=== PATIENT | female | born 1950 | race Caucasian/White ===

== ENCOUNTER 2023-03-26 07:10 | Day surgery (SDC) | payer MEDICARE, OTHER, SELFPAY ==
[2023-03-26] VITALS (7 sets, daily range): BP systolic 96–108; BP diastolic 59–89; BMI 26.2
--- NOTE | 2023-03-26 09:42 | ITS.CL.CATH ---
[facility] [employer] [facility] - Catheterization
Cardiac Catheterization
Procedure Report:
RIGHT HEART CATHETERIZATION WITH SHUNT RUN
Date of Procedure: March 26, 2023
Referring: Diann Bledsoe
INDICATION: Pulmonary hypertension
Hemodynamics (mmHg):
RA (m) : 10
RV (s/d,m) : 81/15, 37
PA (s/d, m) :82/34, 50
PCWP (m) : 16
AO saturation: 91.0 % on room air
High SVC Saturation: 61.6 % on room air
Low SVC Saturation: 63.2 % on room air
IVC Saturation: 69.8 % on room air
RA Saturation: 67.2 % on room air
RV saturation: 67.0 % on room air
PA Saturation: 67.5 % on room air
Heart Rate: 84bpm; Non-invasive BP: 114/61 (mean 82)
Cardiac Output : 3.86 L/min
Cardiac Index : 2.32 L/min/m-2
Systemic vascular resistance: 1492 dsc^(-5)
Pulmonary vascular resistance: 8.62 jasso unit
RADIATION SUMMARY: Fluoro Time (min): 2.1, Dose (mGy): 10.74, DAP (Gy.cm2) : 1.6
CONCLUSION:
1. Severe pulmonary hypertension with minimally elevated left-sided filling pressures and no significant step up noted on the short run.
Copy to: Diann Tomnahed
Luz Marina Bassett MD, FAC, [facility]
== END 2023-03-26 11:31 | disposition home or self-care (01) ==
LOC: CATH 07:10
PROVIDERS: ATTENDING PHYSICIAN Internal Medicine Interventional Cardiology; FAMILY PHYSICIAN Physician Assistant; OTHER PHYSICIAN Internal Medicine Cardiovascular Disease
DX: I27.20 Pulmonary hypertension, unspecified (principal); I13.0 Hypertensive heart and chronic kidney disease with heart failure and stage 1 through stage 4 chronic kidney disease, or unspecified chronic kidney disease; N18.31 Chronic kidney disease, stage 3a; I50.812 Chronic right heart failure; E78.5 Hyperlipidemia, unspecified; K21.9 Gastro-esophageal reflux disease without esophagitis; Z79.82 Long term (current) use of aspirin
CPT/HCPCS: 93451; C1894

== ENCOUNTER 2023-05-06 17:56 | Emergency (ER) | payer MEDICARE, OTHER, SELFPAY ==
[2023-05-06 17:58] VITALS: BP 104/64
--- NOTE | 2023-05-06 19:46 | ED.GENMED ---
History of Present Illness
General
Chief Complaint: Skin Problem
Source: patient
Exam Limitations: none
Time Seen by Provider: 05/06/23 19:23
Nursing documentation reviewed up to this point in time: agreed with
Travel History
Have you had any contact with someone who has COVID-19?: No
Do you have any symptoms of coronavirus? Fever > 100 degrees, chills, cough, shortness of breath, sore throat, loss of taste or smell, muscle aches, or headache?: No
History of Present Illness
History of Present Illness:
72 y/o F with h/o chf, pulm htn, htn, hld
newly diagnosed scleroderma and lupus subtype proteinuria
just seen by rheum
no meds yet
h/o OA
here with painful swelling her right 4th finger x 4 days
pt says she has had a nonpainful lump on her finger PIP for months
but it just started swelling and becoming purulent a few days ago
she has some pain with flexion but is still able to bend it despite the swelling
she showed it to the rheuamtologist who didn't believe this awas related to her autoimmune issues
she has not had fever, chills.
Past History
Past History
ED Past Medical History: CHF, GERD, HTN, Hypercholesterolemia, Other (pulm htn) and Other (PE)
Social History
Tobacco: Non-smoker
Alcohol: None
Drug: None
Review of Systems
Review of Systems
Allergies reviewed?: Yes
All Other Systems: Not applicable
Phy Exam
Physical Exam
Physical Exam:
GENERAL: Alert , in no apparent distress, comfortable at rest
HEAD: NCAT
CV: 2+ DP PULSES B/L
NEUROLOGICAL: Alert and oriented, no focal neuro deficits, , 5/5 strength, sensation intact, ambulation slight limp right leg
SKIN: Warm and dry,
pt has a purulent pustule/lesion rounded on the dorsum of the right ring finger PIP joint with surrounding erythema and mild STS
flexor surface mild erythema
but nontender
flexion 20degrees intact
no streaking up finger
MUSCULOSKELETAL: 4th finger with purulent lump with redness
left 2nd finger with a small nontender nonerythematous bump that resembes a heberden;s node;
PSYCH: Normal and appropriate interaction.
Course
Orders/Labs/Results
Orders:
Orders
05/06/23 19:58
Cephalexin Monohydrate [Keflex] 500 mg PO NOW STA
05/06/23 20:40
Wound Culture [Wound/Abscess/Other Culture] Urgent
EMILY Source: Abscess
Specimen Description:
Date Specimen was Collected: 05/06/23
Time Specimen was Collected: 20:39
Vital Signs
Initial and Last Documented VS:
Initial Vital Signs
Temp Pulse Resp BP Pulse Ox
98.1 F 96 18 104/64 94
05/06/23 17:58 05/06/23 17:58 05/06/23 17:58 05/06/23 17:58 05/06/23 17:58
Last Documented Vital Signs
Temp Pulse Resp BP Pulse Ox
98.1 F 96 18 104/64 94
05/06/23 17:58 05/06/23 17:58 05/06/23 17:58 05/06/23 17:58 05/06/23 17:58
Procedures
Incision/Drainage/Joint Aspiration
Right Posterior Dorsal Fourth Finger(s):
Anethesia: 1% Lidocaine
Preparation: cleaned with Betadine
Type of procedure: incise
Nature of site: abscess
Description of abscess: less than 3cm
Loculations broken up: Yes
How much fluid was obtained?: small amount
Fluid description: purulent
Treatment: left open for drainage
MDM/Problems Addressed
Differential Diagnosis Includes:
abscess, cellulitis, herpetic witlow, bouchards node infection
MDM/Problems Addressed:
jossy suazo, 72 y/o F has seen chalino remotely for hip replacement; has had a node on dorsum of right ring fingerPIP joint for months; says a few days ago it started getting purulence and swelling with redness; she has no tendneress to flexor
surface but some limited ROM of flexion at the PIP joint due to swelling; no fever;
recent dx of scleroderma with lupus as well; followed by rheum but not on meds yet; i'm wondering if she had a yo's node (because it looks like she may have a heberden node on another hand) and it got infected. i spoke with letty olvera
surgery
ok with i&d and splinting for outpatient f/u, abx
keflex probably more tolerated, no h/o MRSa
i&d successful
moderate purulent cyst like drainage
splinted
*Critical Care Note
Total Time (30-74mins, 75-104mins- exclusive of procedures): Not Applicable
ED Attending Note
-
Portions of this chart may have been created with voice recognition software.� Occasional wrong word or��sound alike� substitutions may have occurred due to the inherent limitations of voice recognition software.
Discharge Plan
Departure
Patient Disposition: Home (Routine Discharge)
Date of Disposition: 05/06/23
Time of Disposition: 20:23
Patient with high blood pressure during this ER visit?: No
Condition: Fair
Discharge Problem:
Abscess
Instructions: Abscess Incision and Drainage (DC), Cellulitis (Skin Infection), Adult (DC)
Prescriptions:
New
cephalexin 500 mg capsule
500 mg PO Q8H Qty: 21 0RF
No Action
aspirin 81 mg Tablet,Delayed Release (Dr/Ec)
81 mg PO DAILY
simvastatin 20 mg Tablet
20 mg PO HS
ferrous sulfate [Iron (ferrous sulfate)] 325 mg (65 mg iron) Tablet
325 mg PO DAILY
esomeprazole magnesium [Nexium] 20 mg Capsule,Delayed Release(Dr/Ec)
20 mg PO QPM
losartan 25 mg Tablet
25 mg PO DAILY Qty: 90 3RF
metoprolol succinate 25 mg Tablet Extended Release 24 Hr
25 mg PO DAILY Qty: 90 3RF
cranberry extract [Ellura] 200 mg Capsule
200 mg PO DAILY
timolol 0.5 % Drops
1 drp OPHTHALMIC (EYE) DAILY
furosemide [Lasix] 40 mg tablet
60 mg PO DAILY
Referrals:
Nataliia Mobley PA-C [Family Provider] -
Josafat Crockett MD [Active] - Follow up in 2-3 days (HAND DOCTOR)
Activity Restrictions/Additional Instructions:
YOU HAD AN INFECTED CYST IN YOUR FINGER
TAKE KEFLEX 3 TIMES A DAY FOR 7 DAYS
SOAK IN WARM WATER A FEW TIMES A DAY
YOU SHOULD CALL THE HAND DOCTOR FOR AN APPOINTMENT
TAKE TYLENOL NEEDED FOR HEADACHE
CALL THE HAND DOCTOR FOR AN APPOINTMENT - TELL THEM YOU WERE SEEN IN THE ER AND I SPOKE WITH DR. CROCKETT (HAND DOCTOR) WHO WANTED TO SEE YOU IN THE OFFICE FORR THIS INFECTION
RETURN FOR: WORSENING PAIN, SWELLING, REDNESS, FEVER OR ANY CONCENRS,
Interventions
Interventions:
*Risk Screen - Suicide Last Done: 05/06/23 17:58
*General Assessment Last Done: 05/06/23 17:58
*Neglect/Abuse Screening Last Done: 05/06/23 17:58
ED- Fall Risk Assessment Last Done: 05/06/23 18:41
*ED COVID-19 Vaccine History Last Done: 05/06/23 17:58
*Nursing Disposition Last Done: 05/06/23 20:57
ED-Skin Assessment Last Done: 05/06/23 18:40
Discharge Date and Time
Discharge Date/Time: 05/06/23 20:57
[2023-05-06] MEDS: KEFLEX 500 MG PO (20:45)
== END 2023-05-06 20:57 | disposition home or self-care (01) ==
LOC: EMR 17:56
PROVIDERS: EMERGENCY PHYSICIAN Emergency Medicine; FAMILY PHYSICIAN Physician Assistant
DX: L02.511 Cutaneous abscess of right hand (principal); I11.0 Hypertensive heart disease with heart failure; I50.9 Heart failure, unspecified; E78.00 Pure hypercholesterolemia, unspecified; I27.20 Pulmonary hypertension, unspecified; K21.9 Gastro-esophageal reflux disease without esophagitis; M34.9 Systemic sclerosis, unspecified
CPT/HCPCS: 99282; 10060; 87070; 87205

== ENCOUNTER 2023-05-25 18:33 | Inpatient (IN) | payer MEDICARE, OTHER, SELFPAY ==
[2023-05-25] VITALS (17 sets, daily range): BP systolic 76–124; BP diastolic 51–71
[2023-05-25 09:16] LABS: % Basophils 0.3 % (0-2); % Eosinophils 0.8 % (0-6); % Immature Granulocytes 0.6 % (0-0.5); % Lymphocytes 8.4 % (20.5-51.1); % Monocytes 11.3 % (1.7-9.3); % Neutrophils 78.6 % (42.2-75.2); Absolute Eosinophils 0.1 10^3/uL (0-0.7); Absolute Lymphocytes 0.6 10^3/uL (1.2-3.4); Absolute Monocytes 0.8 10^3/uL (0.1-0.6); Absolute Neutrophils 5.7 10^3/uL (1.4-6.5); Hematocrit 30.6 % (37.0-47.0); Hemoglobin 9.7 g/dL (12.0-16.0); Mean Corp Hgb Conc. 31.7 g/dL (33.0-37.0); Mean Corpuscular Hgb 30.2 pg (27.0-31.0); Mean Corpuscular Volume 95.3 fL (81.0-99.0); Mean Platelet Volume 9.5 fL (7.4-10.4); Nucleated Red Blood Cells % 0 %; Platelet Count 251 10^3/uL (130-400); Red Blood Cell Count 3.21 10^6/uL (4.20-5.40); Red Cell Dist. Width 15.1 % (11.5-14.5); White Blood Cell Count 7.2 10^3/uL (4.8-10.8)
[2023-05-25 09:28] LABS: Blood Urea Nitrogen 24 mg/dl (7-17); Glucose 103 mg/dl (70-99)
[2023-05-25 09:29] LABS: Calcium 9.3 mg/dl (8.4-10.2); Carbon Dioxide 24 mmol/L (22-30); Chloride 104 mmol/L (98-107); Potassium 3.7 mmol/L (3.5-5.1); Sodium 133 mmol/L (135-145); eGFR > 60.00
[2023-05-25 09:31] LABS: INR 1.15; PT 14.5 Sec (11.4-14.6)
[2023-05-25 15:25] LABS: Hematocrit 28.1 % (37.0-47.0); Hemoglobin 9.3 g/dL (12.0-16.0)
--- NOTE | 2023-05-25 16:46 | W.CON.NEPH ---
Consultation
-
Date/Time Consultation Requested: 05/25/23
Date/Time Consultation Performed: 05/25/23
Performing Provider: Madeline Guan
Reason for Consultation: gross hematuria
Medical History
-
Chief Complaint: gross hematuria s/p kidney biopsy
History of Present Illness:
Ms. Nash is a 72YOF with PMH of pHTN (diagnosed Feb 2023), HTN, DLD, GERD, overactive bladder (on acupuncture), bladder tack in September 2022, PE (2007 after hip surgery) who presents to the hospital after a kidney biopsy.
She initially presented to me on 05/04/23 for proteinuria as a referral from rheumatology. Started having symptoms over 1 year ago. Main presenting symptoms was fatigue/low energy. She was diagnosed with heart failure in the fall of 2021. 2022 she
went into the hospital and was diagnosed with pHTN. She was then referred to Dr. Bledsoe for heart failure who she finally saw in February 2023. She was initiated on Letairis.
She had thickening of her skin, swollen fingers, lumps on her arms, fingers turning blue with cold. Noted blotches on her face in the malar region too. She was initiated on Lasix, which was working well but she is overtly swollen today. Continues
to have dry eyes and dry mouth. Saw Dr. Cherry in March and was thought to have scleroderma/lupus overlap. Her labs are notable for a Cr ranging 1-1.18. + HOWARD, + centromere. +anti-scl 70. UPCR of 23.959. + SSA/SSB, + dsDNA, elevated CRP. On urine
microscopy today, she is noted to have +blood, +protein. The urine is too foamy to assess for RBC casts.
Of note, she has had blood in her urine for a long time but not such dark urine. She did have a bladder biopsy previously with no cancer noted.
She underwent her kidney biopsy this AM. Unfortunately, she was found to have severe R hydro and mild L on US prior to biopsy. Biopsy was done of the L kidney which was difficult per IR due to cortical thinning and a cyst. She had a small
subcapsular hematoma at the end of the procedure. In SDS, she voided for the first time and she had gross hematuria, no clots. She was HDS. Hgb 9.7 --> 9.3 post biopsy.
Past Medical History
Hiatal hernia.
Hypertension.
Hyperlipidemia.
Obesity.
Iron deficiency.
Glaucoma.
Cataracts.
PE (2007).
Anemia.
Shingles.
Overreactive bladder.
Pulmonary hypertension.
Past Medical History: Other
Social History
Tobacco: Non-Smoker
Alcohol: Occasional
Drug: None
Personal:
Living: With Family ( with dementia)
Family History
Family History: Not Pertinent
Allergies / Home Medications
Allergy/AdvReac Type Severity Reaction Status Date / Time
No Known Allergies Allergy Verified 09/14/22 06:12
�Medication �Instructions �Recorded �Confirmed �Type
aspirin 81 mg tablet,delayed 81 mg PO DAILY Blood clot 03/10/22 05/25/23 History
release prevention/tx
esomeprazole magnesium 20 mg 20 mg PO QPM GERD 03/10/22 05/25/23 History
capsule,delayed release (Nexium)
ferrous sulfate 325 mg (65 mg 325 mg PO DAILY Supplement 03/10/22 05/25/23 History
iron) tablet (Iron (ferrous
sulfate))
simvastatin 20 mg tablet 20 mg PO HS High cholesterol 03/10/22 05/25/23 History
metoprolol succinate 25 mg 25 mg PO DAILY #90 tabs 03/12/22 05/25/23 Rx
tablet,extended release 24 hr
cranberry extract 200 mg capsule 200 mg PO DAILY 09/10/22 05/25/23 History
(Ellura)
furosemide 40 mg tablet (Lasix) 60 mg PO DAILY 03/26/23 05/25/23 History
ambrisentan 5 mg tablet (Letairis) 5 mg PO DAILY 05/24/23 05/25/23 History
losartan 25 mg tablet 50 mg PO DAILY 05/24/23 05/25/23 History
sildenafil (pulm.hypertension) 20 20 mg PO TID 05/24/23 05/25/23 History
mg tablet
ambrisentan 5 mg tablet 5 mg PO DAILY 05/25/23 05/25/23 History
Review of Systems
-
History Source: Patient
All other systems: Negative unless noted
: Other (dark red urine )
Physical Exam
Vital Signs
Vital Signs
Temp Pulse Resp BP Pulse Ox
98.0 F 100 20 103/64 95
05/25/23 11:05 05/25/23 16:00 05/25/23 16:00 05/25/23 16:00 05/25/23 16:00
Lab Results
WBC 7.2 10^3/uL (4.8-10.8) 05/25/23 08:50
RBC 3.21 10^6/uL (4.20-5.40) L 05/25/23 08:50
Hgb 9.3 g/dL (12.0-16.0) L 05/25/23 15:17
Hct 28.1 % (37.0-47.0) L 05/25/23 15:17
Plt Count 251 10^3/uL (130-400) 05/25/23 08:50
Sodium 133 mmol/L (135-145) L 05/25/23 08:50
Potassium 3.7 mmol/L (3.5-5.1) 05/25/23 08:50
Chloride 104 mmol/L (98-107) 05/25/23 08:50
Carbon Dioxide 24 mmol/L (22-30) 05/25/23 08:50
BUN 24 mg/dl (7-17) H 05/25/23 08:50
Creatinine 1.0 mg/dL (0.6-1.0) 04/02/24 08:50
eGFR > 60.00 05/25/23 08:50
Glucose 103 mg/dl (70-99) H 05/25/23 08:50
Calcium 9.3 mg/dl (8.4-10.2) 05/25/23 08:50
Physical Exam
General: AOx3
HEENT: PERRL
Respiratory: Clear
Cardiac: S1/S2
Breast: Deferred by me
Abdomen: Soft, Nontender and Nondistended
Genito-urinary: Bloody Urine
Musculoskeletal: No Edema
Skin: No Rash
Neuro: Nonfocal/Grossly Intact
Psych: Mood/afflect pleasant, Insight/judgement good and Appropriate
Assessment/Plan
-
Assessment:
gross hematuria
c/f bleeding s/p kidney biopsy
23g proteinuria
c/f lupus/scleroderma
hydronephrosis
Plan:
- ordered CT scan non con of abd/pelvis, please ensure it is done in the AM
- consult urology for assistance in hydro (she is known to them for her overactive bladder)
- serial H/H
- closely monitor urine output for clots
- hold diuretics at this time due to concern for active bleed but she will need regimen adjusted before going home
- BMP in AM (bl Cr 1.1-1.18)
- patient is anxious to get back home to her who has dementia, reassurance provided
Data Reviewed
-
Labs: Labs Reviewed by me, Discussed with Physician and Discussed with Patient
Old Records: Reviewed
--- NOTE | 2023-05-25 17:15 | HPS.HSE ---
Addendum entered and electronically signed by Roque Noel MD 05/25/23 17:22:
Held Losartan.
Original Note:
Family Physician
-
Family Physician: Nataliia Mobley
Chief Complaint
-
post renal biopsy
History of Present Illness
72-year-old female past medical history of recently diagnosed scleroderma with lupus overlap, CHF, pulmonary hypertension, hypertension, hyperlipidemia, GERD, osteoarthritis presented for elective left renal biopsy.
She was diagnosed with scleroderma/lupus overlap syndrome in April after being referred to rheumatology by her lead clinical research coordinator Dr. Diann Bledsoe due to swelling of her fingers and fingers turning blue and lumps on her arms and blotches on her face.
She was then referred to Dr. Kaur who found patient to have proteinuria and microscopic hematuria. She was set up to have renal biopsy which she underwent today.
Patient underwent procedure without any complications. In recovery she was found to have gross hematuria with dark blood without clots. She denies any dizziness, lightheadedness, chest pain or shortness of breath, abdominal pain or flank pain or
urinary symptoms.
On bedside ultrasound interventional radiology also found patient to have severe right-sided hydronephrosis. IR recommended the patient be observed overnight.
She denies smoking. She drinks alcohol symptoms.
Medical History
Past Medical History
Past Medical History: Reports Other (recently diagnosed scleroderma with lupus overlap, CHF, pulmonary hypertension, hypertension, hyperlipidemia, GERD, osteoarthritis)
Past Surgical History: Reports None
Social History
Tobacco: Non-smoker
Alcohol: Occasional
Drug: None
Family History
Family History: Not pertinent
Allergies / Home Medications
Allergies reflects when Allergies were last updated in [employer].
Home Medications with original date entered in [employer]
Allergy/Medication List:
Allergies
Allergy/AdvReac Type Severity Reaction Status Date / Time
No Known Allergies Allergy Verified 09/14/22 06:12
Home Medications
aspirin 81 mg tablet,delayed release 81 mg PO DAILY Blood clot prevention/tx 03/10/22
esomeprazole magnesium 20 mg capsule,delayed release (Nexium) 20 mg PO QPM GERD 03/10/22
ferrous sulfate 325 mg (65 mg iron) tablet (Iron (ferrous sulfate)) 325 mg PO DAILY Supplement 03/10/22
simvastatin 20 mg tablet 20 mg PO HS High cholesterol 03/10/22
metoprolol succinate 25 mg tablet,extended release 24 hr 25 mg PO DAILY #90 tabs 03/12/22
cranberry extract 200 mg capsule (Ellura) 200 mg PO DAILY 09/10/22
furosemide 40 mg tablet (Lasix) 60 mg PO DAILY 03/26/23
ambrisentan 5 mg tablet (Letairis) 5 mg PO DAILY 05/24/23
losartan 25 mg tablet 50 mg PO DAILY 05/24/23
sildenafil (pulm.hypertension) 20 mg tablet 20 mg PO TID 05/24/23
ambrisentan 5 mg tablet 5 mg PO DAILY 05/25/23
Review of Systems
-
History Source: Patient
A 12 point ROS was completed and negative except as noted: Yes
Constitutional: Reports No Symptoms
EENT: Reports No Symptoms
Respiratory: Reports No Symptoms
Cardiac: Reports No Symptoms
Abdomen/GI: Reports No Symptoms
: Reports No Symptoms
Musculoskeletal: Reports No Symptoms
Skin: Reports No Symptoms
Neurological: Reports No Symptoms
Endocrine: Reports No Symptoms
Hematologic/Lymphatic: Reports No Symptoms
Psych: Reports No Symptoms
Physical Exam
Vital Signs
Vital Signs
Temp Pulse Resp BP Pulse Ox
98.0 F 100 20 103/64 95
05/25/23 11:05 05/25/23 16:00 05/25/23 16:00 05/25/23 16:00 05/25/23 16:00
Physical Exam
General: Well Developed, Well Nourished and No Apparent Distress
HEENT: NormoCephalic, Moist mucous membranes and Atraumatic
Respiratory: Clear
Cardiac: S1/S2 and Regular Rhythm; No Murmur or Rub
GI: Soft, Non Tender, Non Distended and Normal Bowel Sounds; No Organomegaly
Rectal: Deferred by Provider
Musculoskeletal: No Clubbing, No Cyanosis and No Edema
Skin: No Rash
Neuro: Nonfocal/grossly intact
Laboratory Results
-
05/25/23 15:17
05/25/23 08:50
Laboratory Results
PT 14.5 Sec (11.4-14.6) 05/25/23 08:50
INR 1.15 05/25/23 08:50
Data Reviewed
-
Lab Data: Labs Reviewed by me
Old Records: Reviewed
Impression/Plan
-
IMPRESSION:
PLAN:
# Hematuria after left renal biopsy
-Postprocedure ultrasound showed small subcapsular hematoma which was not expanding
-Should hopefully resolve on its own
# Normocytic anemia
-Hemoglobin 9.7 this morning, currently 9.3
-Continue to monitor
-Hold aspirin
-Continue iron supplement
# Incidental severe right-sided hydronephrosis
-Check CT abdomen pelvis to evaluate etiology
-urology consult afterwards
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
-Await results of kidney biopsy
# Recently diagnosed scleroderma/lupus overlap
Chronic HFmrEF
-Echo from last year showing EF of 50%
-Hold Lasix for now given possibility of bleeding
-Continue metoprolol
Mild to moderate mitral regurgitation
Severe pulmonary hypertension
Moderate to severe tricuspid regurgitation
-Continue Ambrisentan
-Continue sildenafil
Mild to moderate pulmonary regurgitation
Essential hypertension
-Continue losartan
Hyperlipidemia
-Continue statin
GERD
-Continue esomeprazole
Osteoarthritis
Full code
DVT prophylaxis�SCDs
Cardiac diet
--- NOTE | 2023-05-25 18:29 | PTCARENOTE ---
1814: Patient arrived to 2S. Head to toe assessment completed. L renal biopsy incision covered with clean, dry and intact band aid. HOB less than 30 degrees. Patient on bedrest at this time. Patient verbalized understanding of activity restrictions.
Patient put on bedpan. Moderate amount of bloody/foul smelling urine noted. B/L LE +2 edema. Lungs are clear with diminished bases. Patient on RA with SpO2 greater than 92%. Call almaraz within reach and bed in lowest position. Daughter at bedside.
--- NOTE | 2023-05-25 18:30 | PTCARENOTE ---
Pt moved to room, report given. Pt tolerated transport well. Pt comfortable. Met with Dr. Tse prior to departure from [facility]. Pt displays no s/s of distress or discomfort. Belongings transferred with pt.
[2023-05-25] MEDS: PROTONIX 40 MG PO (20:15)
[2023-05-25] MEDS: REVATIO 20 MG PO (21:40)
[2023-05-25] MEDS: LIPITOR 10 MG PO (21:41)
[2023-05-26] VITALS (50 sets, daily range): BP systolic 68–133; BP diastolic 30–101
[2023-05-26 05:41] LABS: % Basophils 0.2 % (0-2); % Immature Granulocytes 0.5 % (0-0.5); % Monocytes 10.1 % (1.7-9.3); % Neutrophils 86.2 % (42.2-75.2); Absolute Immature Granulocytes 0.1 10^3/uL (0-0.05); Absolute Lymphocytes 0.3 10^3/uL (1.2-3.4); Absolute Monocytes 0.9 10^3/uL (0.1-0.6); Hematocrit 27.4 % (37.0-47.0); Hemoglobin 8.8 g/dL (12.0-16.0); Mean Corp Hgb Conc. 32.1 g/dL (33.0-37.0); Mean Corpuscular Hgb 29.9 pg (27.0-31.0); Mean Corpuscular Volume 93.2 fL (81.0-99.0); Mean Platelet Volume 9.7 fL (7.4-10.4); Nucleated Red Blood Cells % 0 %; Platelet Count 214 10^3/uL (130-400); Red Blood Cell Count 2.94 10^6/uL (4.20-5.40); White Blood Cell Count 9.2 10^3/uL (4.8-10.8)
[2023-05-26 06:11] LABS: ALT (SGPT) < 10 U/L (0-35); AST (SGOT) 16 U/L (14-36); Albumin 2.7 g/dl (3.5-5.0); Alkaline Phosphatase 127 U/L (38-126); Blood Urea Nitrogen 19 mg/dl (7-17); Calcium 8.7 mg/dl (8.4-10.2); Carbon Dioxide 24 mmol/L (22-30); Chloride 106 mmol/L (98-107); Glucose 108 mg/dl (70-99); Potassium 4.1 mmol/L (3.5-5.1); Sodium 134 mmol/L (135-145); Total Bilirubin 0.5 mg/dl (0.2-1.3); Total Protein 5.2 g/dl (6.3-8.2); eGFR > 60.00
[2023-05-26] MEDS: FEOSOL 325 MG PO (08:10)
--- NOTE | 2023-05-26 08:25 | CONS.URO ---
Consultation
-
Performing Provider: Peffer
Reason for Consultation: Hydronephrosis
Medical History
History of Present Illness
72-year-old female past medical history of recently diagnosed scleroderma with lupus overlap, CHF, pulmonary hypertension, hypertension, hyperlipidemia, GERD, osteoarthritis presented for elective left renal biopsy.
She was referred to Dr. Kaur who found patient to have proteinuria and microscopic hematuria. She was set up to have renal biopsy which she underwent yesterday
Patient underwent procedure without any complications. Some mild gross hematuria quickly resolved.
She denies any dizziness, lightheadedness, chest pain or shortness of breath, abdominal pain or flank pain. Denies dysuria and pyuria
On bedside ultrasound interventional radiology found patient to have severe right-sided hydronephrosis. IR recommended the patient be observed overnight.
She has a history of OAB, urge incontinence, and pelvic organ prolapse. She had colporrhaphy with Dr. Johnson 08/2022 and is currently undergoing PTNS for overactive bladder/incontinence
On review of past CT 1 year ago, she had bilateral hydroureteronephrosis likely due to neurogenic bladder and chronic urinary retention based on appearance
Urology consulted for eval of hydronephrosis
No signs or symptoms of sepsis or acute renal obstruction
Past Medical History
Past Medical History: Other (scleroderma with lupus overlap, CHF, pulmonary hypertension, hypertension, hyperlipidemia, GERD, osteoarthritis)
Past Surgical History: Urological and Other (colporrhaphy)
Social History
Tobacco: Non-smoker
Alcohol: None
Family History
Family History: Reviewed & Not Pertinent
Allergies/Home Medications
Allergies
Allergy/AdvReac Type Severity Reaction Status Date / Time
No Known Allergies Allergy Verified 09/14/22 06:12
Home Medications
�Medication �Instructions �Recorded �Confirmed �Type
aspirin 81 mg tablet,delayed 81 mg PO DAILY Blood clot 03/10/22 05/25/23 History
release prevention/tx
esomeprazole magnesium 20 mg 20 mg PO QPM GERD 03/10/22 05/25/23 History
capsule,delayed release (Nexium)
ferrous sulfate 325 mg (65 mg 325 mg PO DAILY Supplement 03/10/22 05/25/23 History
iron) tablet (Iron (ferrous
sulfate))
simvastatin 20 mg tablet 20 mg PO HS High cholesterol 03/10/22 05/25/23 History
metoprolol succinate 25 mg 25 mg PO DAILY #90 tabs 03/12/22 05/25/23 Rx
tablet,extended release 24 hr
cranberry extract 200 mg capsule 200 mg PO DAILY 09/10/22 05/25/23 History
(Ellura)
furosemide 40 mg tablet (Lasix) 60 mg PO DAILY 03/26/23 05/25/23 History
ambrisentan 5 mg tablet (Letairis) 5 mg PO DAILY 05/24/23 05/25/23 History
losartan 25 mg tablet 50 mg PO DAILY 05/24/23 05/25/23 History
sildenafil (pulm.hypertension) 20 20 mg PO TID 05/24/23 05/25/23 History
mg tablet
ambrisentan 5 mg tablet 5 mg PO DAILY 05/25/23 05/25/23 History
Physical Exam
Vital Signs
Vital Signs
Temp Pulse Resp BP Pulse Ox
98.6 F 114 18 98/63 92
05/26/23 03:25 05/26/23 03:25 05/26/23 03:25 05/26/23 03:25 05/26/23 03:25
Lab / Testing Results
Laboratory Results
05/26/23 04:55
05/26/23 04:55
Physical Exam
General: Well Developed, Well Nourished and No Apparent Distress
Respiratory: Clear
GI: Soft and Non Tender
Genito-urinary: No Costovertebral Tend
Neuro: AO x 3 and No Motor Deficits
Psych: Calm and Intact Judgement
Assessment / Plan
-
73F with proteinuria, scleroderma with lupus overlap, currently admitted for observation after left renal biopsy
Some hematuria post procedure with red urine, no clots
Urology consulted for severe R hydronephrosis noted during procedure
History of pelvic organ prolapse s/p surgery with Dr. Johnson 08/2022, currently undergoing PTNS for urge urinary incontinence
- CTAP this AM showing bilateral hydroureteronephrosis is likely due to chronic neurogenic bladder with vesicoureteral reflux. She has had workup for voiding dysfunction and detrusor overactivity, but may need further outpatient workup with
videourodynamics to evaluate this. Hydronephrosis is similar and stable from prior CT last year. No acute obstruction.
- Ordered PVR to assess bladder emptying. Based on CT she does not appear to have high volume urinary retention
- Small perinephric hematoma on CT which does not appear to represent significant bleeding. Small amount of air at this site is likely due to instrumentation
- Resolving hematuria with dark/merlot urine suggesting clearance of prior active bleeding
- Trend HGB and hematuria today
- Outpatient follow up for further neurogenic bladder eval
Data Reviewed
-
CT Scan: Image personally visualized and interpreted
Lab Data: Labs Reviewed
--- NOTE | 2023-05-26 08:54 | W.PN.HOSP.TC ---
Addendum entered and electronically signed by Rock Cooper MD 05/26/23 15:52:
Addendum
Patient continues o have low BP and high lactic acid, fevers
Severe sepsis/ septic shock POA and evolving
c/w IV cefepime
Add vancomycin
Blood cultures were done
Move to IMU for pressure support
d/w IR doctor, CT reviewed again, currently urine catheter : clearing urine
Monitor H&H
Total critical time spent to see the patient, examine the patient on the floor, review data and lab results, discuss treatment plan with patient, consultants, nursing staff around 79 minutes.
Addendum entered and electronically signed by Rock Cooper MD 05/26/23 11:05:
Addendum
Nurse of the patient reported that patient was having abdominal pain and looked weak, was concerned about patient approaching syncopal/fainting episode
I saw the patient in the room, she looked same as this morning but she stated that she was not feeling well. The pain had dissipated in her abdomen. Abdominal examination revealed some fullness in suprapubic area. Ordered Savage despite bladder
scan did not show high volume of retention. Patient is hemodynamically stable with no hypotension. Patient is feeling cold.
Post Savage insertion revealed gross hematuria with some clots/viscosity
Possible underlying UTI
Start empiric cefepime, send urine for testing
Discussed with urologist to do CBI
Appreciate nursing staff help
End
Original Note:
Today's Communication/Plan
-
.
Assessment / Plan
Assessment / Plan
Physical Exam
General: Well Developed, Well Nourished and No Apparent Distress
HEENT: Normocephalic, Moist mucous membranes and Atraumatic
Respiratory: Clear
Cardiac: S1/S2 and Regular Rhythm; No Murmur or Rub
GI: Soft, Non Tender, Non Distended and Normal Bowel Sounds; No Organomegaly
Rectal: Deferred by Provider
Musculoskeletal: No Clubbing, No Cyanosis and No Edema
Skin: No Rash
Neuro: Nonfocal/grossly intact
Psych: no agitation
# Right hydronephrosis
No history of flank pain.
Was found incidentally on the renal ultrasound
For CAT scan study
Discussed with urology
Appreciate urology help
# Hematuria after left renal biopsy
Creatinine 1.0
-Postprocedure ultrasound showed small subcapsular hematoma which was not expanding
No active hematuria this morning
# Combination of acute blood loss anemia and anemia of chronic disease
-Hemoglobin 9.7 this morning, currently 8.8
Check iron studies
Hyponatremia, sodium 134#
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
-Await results of kidney biopsy
Primary picking supervisor is Dr. Guan
# Recently diagnosed scleroderma/lupus overlap
#Chronic HFmrEF
-Echo from last year showing EF of 50%
-Hold Lasix for now given possibility of bleeding
-Continue metoprolol
#Mild to moderate mitral regurgitation
#Severe pulmonary hypertension
Moderate to severe tricuspid regurgitation
-Continue Ambrisentan
-Continue sildenafil
#Mild to moderate pulmonary regurgitation
#Essential hypertension
Low blood pressure this morning. Continue with Toprol. Give IV fluid.
Hold losartan
Hyperlipidemia
-Continue statin
GERD
-Continue esomeprazole
Osteoarthritis
Full code
DVT prophylaxis�SCDs
Cardiac diet
Total time spent to see the patient, examine the patient on the floor, review data and lab results, discuss treatment plan with patient, nursing staff around 55 minutes.
Anticipated Discharge: 24 - 48 hours
Subjective/Interval History
-
Date of Service: May 26, 2023
No chest pain
No sob
No abd pain
Objective Data
-
Labs:
Laboratory Results
05/26/23
04:55
WBC 9.2
Hgb 8.8 L
Hct 27.4 L
Plt Count 214
Sodium 134 L
Potassium 4.1
Chloride 106
Carbon Dioxide 24
BUN 19 H
Creatinine 1.0
Glucose 108 H
Calcium 8.7
Total Bilirubin 0.5
AST 16
ALT < 10
Alkaline Phosphatase 127 H
Vital Signs:
Vital Signs
Temp Pulse Resp BP Pulse Ox
98.4 F 112 18 98/64 96
05/26/23 07:05 05/26/23 07:05 05/26/23 07:05 05/26/23 07:05 05/26/23 07:05
I&O
05/25/23 05/26/23 05/27/23
06:59 06:59 06:59
Intake Total 630 / 630
Balance 630 / 630
[2023-05-26] MEDS: REVATIO 20 MG PO (09:43)
[2023-05-26] MEDS: TOPROL XL 25 MG PO (09:43)
[2023-05-26 09:57] LABS: Iron 30 ug/dl (37-170)
[2023-05-26] MEDS: DILAUDID 0.5 MG IV (10:03)
[2023-05-26 10:12] LABS: Glucose - Point of Care 167 mg/dl (70-99)
--- NOTE | 2023-05-26 11:00 | PTCARENOTE ---
Addendum entered by Jessica Rossi RN 05/26/23 15:31:
ammend [address] RN reached out to Dr Fontaine regarding change pts status, no orders for repeat CT A/P at this time. Care remains ongoing.
Addendum entered by Jessica Rossi RN 05/26/23 15:17:
1436 Dr Guillen to bedside to see pt. Pt alert and oriented but remains hypotensive SBP in 70s. IVF rate changed to wide open. Stat hemeglobin ordered for now and drawn. Dr King placed order to initiate helen gtt.
1445 RR called, ICU RNs to beside updated on status and initiated gtt. Report given to Yani IMU RN.
Addendum entered by Jessica Rossi RN 05/26/23 14:20:
1415 Pt hypotensive and producing <30 cc urine per hour. Catheter hand irrigated no obstruction noted, clear/pink tinged urine with sediment drained. Dr Fontaine made aware
Addendum entered by Maya Graham RN 05/26/23 12:24:
ammend [address]
approx 1155 Dr Richards in to see pt. Blood cultures and lactate ordered
1210 Pt hand irrigated per dr medrano, light pink urine with sediment drained.
1220 rectal temp 102.1, awaiting offirmev from pharmacy
Addendum entered by Maya Graham RN 05/26/23 11:46:
adden 955: Pt 02 desatting to mid 80s on RA, placed on 2L nasal cannula.
Addendum entered by Maya Graham RN 05/26/23 11:40:
[address] fontaine notified. RN asking for blood cultures and lactate, and telemetry order. No new orders at this time. Pt continues with rectal/pelvic pressure, unchanged at this time.
1140 Dr Medrano called RN and updated on status. MD stated do not start CBI, ok to leave 16 fr patel catheter in place and to hand irrigate. Dr medrano to come to bedside around lunch time to assess pt.
Original Note:
955 Pt c/o 9/10 abdominal pain, feeling dizzy like she was going to faint. Pt incontinent of a moderate amount of urine, PVR 71. Bladder distended and firm to palpation, with visible raise in pubic area. Dr Medrano and Dr Fontaine made aware and
Kenneth to bedside to see pt
1030 Patel catheter inserted with dark thick bloody urine draining, urine noted with significant sediment, 150 cc drained initially, pt c/o nausea and increasing pelvic pressure now radiating to rectal pressure. Urine specimen sent.
1100 Pt vomited small amount of fluid. Dr Fontaine made aware.
pt with rigors, oral temp 99.8 then 98.6 then 97.6 orally, rectal temp 103. Ice pack placed in arm pits and groin Dr Fontaine notified and to order tylenol
[2023-05-26 11:42] LABS: Urine Albumin 3+ (Neg - Trace); Urine Bilirubin Negative (Negative); Urine Character Bloody (Clear); Urine Color Red; Urine Glucose Negative (Negative); Urine Ketone 1+ (Negative); Urine Leukocyte 1+ (Negative); Urine Nitrite Negative (Negative); Urine Occult Blood 4+ (Negative); Urine Urobilinogen Negative (Neg - 1+)
[2023-05-26 11:44] LABS: Urine Bacteria Many (Negative); Urine Red Blood Cell 50-60 /HPF (0-2); Urine White Cell >100 /HPF (0-5)
--- NOTE | 2023-05-26 12:09 | W.PN.NEPH.PH ---
Today's Communication / Plan
-
IV antibiotics
Blood cultures to be obtained
Normal saline
Monitor hemoglobin closely
Assessment/Plan
-
Assessment:
gross hematuria
c/f bleeding s/p kidney biopsy
23g proteinuria
c/f lupus/scleroderma
Bilateral hydronephrosis
Plan:
-CT report reviewed:
Small left renal perinephric hematoma related to prior biopsy procedure. Small amount of increased attenuation in the visible distal left ureter likely related to blood products from prior biopsy.
Bilateral renal cortical thinning. Chronic bilateral hydronephrosis and hydroureter, with severe right hydronephrosis and moderate to severe left hydronephrosis. Slightly worse as compared with prior study.
Bladder evaluation significantly limited by streak artifacts. There is some wall thickening/trabeculation suggesting outlet obstruction or neurogenic bladder. Probable component of bladder prolapse, not as well-seen as on the prior study.
-Hemoglobin dropped from 9.7-8.8, no blood products given the
-Urology believes bilateral hydronephrosis is due to chronic bladder outlet obstruction
-Patient now with fevers and tachycardia, blood cultures to be obtained and broad-spectrum antibiotics applied for possible source
-Okay to continue normal saline at this time
-Will recheck hemoglobin this afternoon, if hemoglobin would continue to drop we will need repeat imaging and possible IR consult to evaluate for ongoing blood loss following renal biopsy
- closely monitor urine output for clots, hand irrigation ordered by urology
- hold diuretics at this time due to concern for active bleed but she will need regimen adjusted before going home
-ARB held for low blood pressure
- BMP in AM (bl Cr 1.1-1.18)
-Discussed plan with patient and family members
-Patient had increased clinical high risk for ongoing bleeding following renal biopsy procedure and now with possible evolving sepsis physiology
-
-
Date of Service: May 26, 2023
CC / HPI / ROS
-
Chief Complaint:
Macrohematuria status post renal biopsy
History of Present Illness:
Now with fevers and tachycardia
Hemoglobin down from 9 7-8.8 with gross hematuria via patel
Review of Systems:
patel
hematuria
bladder pain earlier this am
fevers
On nasal cannula oxygen
Labs
-
Labs:
WBC 9.2 10^3/uL (4.8-10.8) 05/26/23 04:55
RBC 2.94 10^6/uL (4.20-5.40) L 05/26/23 04:55
Hct 27.4 % (37.0-47.0) L 05/26/23 04:55
Plt Count 214 10^3/uL (130-400) 05/26/23 04:55
Sodium 134 mmol/L (135-145) L 05/26/23 04:55
Potassium 4.1 mmol/L (3.5-5.1) 05/26/23 04:55
Chloride 106 mmol/L (98-107) 05/26/23 04:55
Carbon Dioxide 24 mmol/L (22-30) 05/26/23 04:55
BUN 19 mg/dl (7-17) H 05/26/23 04:55
Creatinine 1.0 mg/dL (0.6-1.0) 05/26/23 04:55
eGFR > 60.00 05/26/23 04:55
Glucose 108 mg/dl (70-99) H 05/26/23 04:55
Calcium 8.7 mg/dl (8.4-10.2) 05/26/23 04:55
Albumin 2.7 g/dl (3.5-5.0) L 05/26/23 04:55
Physical Exam
-
Vital Signs:
Vital Signs
Temp Pulse Resp BP Pulse Ox
99.1 F 121 19 110/61 94
05/26/23 11:11 05/26/23 11:11 05/26/23 11:11 05/26/23 11:11 05/26/23 11:11
Cardiovascular:: Regular rate and rhythm (tachy)
Respiratory:: Bilateral: CTA
Lung Excursion:: Normal
Abdomen:: Nontender and Soft
Bowel Sounds:: Decreased
Extremity Edema:: None: Bilateral:
Patel Catheter: Yes
[2023-05-26] MEDS: NSS 1000 IV ×3 (12:22→23:32)
[2023-05-26] MEDS: OFIRMEV 100 IV (12:35)
--- NOTE | 2023-05-26 12:47 | W.PN.UPDATE ---
Update Note
Progress Note Update
Shortly after seeing patient she developed high fevers, L side pelvic and abdominal pain
Nurse placed patel catheter for 150cc output and irrigated, removing some purulent debris and some clot
After this urine drained slightly purulent with no clots
Patient was started on broad spectrum abx
Urine culture and blood cultures sent
I evaluated at bedside and irrigated 16Fr catheter - no bleeding and some purulent debris, draining freely
Suspect that chronic bacterial colonization in refluxing urinary tract has caused infection of the renal biopsy site
Maintain patel
Continue abx pending cultures
Trend labs
[2023-05-26 12:56] LABS: Lactic Acid 2.2 mmol/L (0.7-2.0)
--- NOTE | 2023-05-26 13:26 | CM ---
Reviewed the chart notes and spoke with the patient and her family at the bedside. The patient resides with her spouse in a two story home with four steps to enter. The patient is the main caregiver to her spouse. Her spouse attends adult daycare
three times weekly. The patient reports no DME or SNF in the past, but has had [facility]. The patient confirmed her pharmacy of choice is the [facility]. The patient anticipates being discharged to home with no anticipated needs. CM
continues to be available to patient/family and is monitoring medical plan for needs at discharge.
Plan: Discharge to home when medically stable. No anticipated needs identified at this time.
[2023-05-26] MEDS: MAXIPIME 1000 MG IV ×2 (14:02→19:26)
[2023-05-26] MEDS: STERILE WATER FOR INJECTION 10 ML IV ×2 (14:02→19:26)
[2023-05-26 14:50] LABS: Hemoglobin 8.5 g/dL (12.0-16.0)
[2023-05-26] MEDS: NEO-SYNEPHRINE 250 IV (15:01)
--- NOTE | 2023-05-26 15:01 | W.PN.UPDATE ---
Update Note
Progress Note Update
Called to beside for fever and hypotension sbp ~70
NSS run wide open
neosynephrine started
for transfer to IMU
stat h/h to evaluate for blood loss s/p renal biopsy
patel in , no gross blood
blood cultures obtained
rocephin given 1gram q12hr
--- NOTE | 2023-05-26 15:40 | PHA.VAN.IN ---
Assessment
- Assessment
Renal Function: Unknown baseline
Concomitant Antimicrobials: cefepime
Plan
- Plan
Initial / Loading Dose: 1500mg - administration pending
Maintenance Regimen: dosing by level
Monitoring: random 05/26 599
Pharmacokinetics Vancomycin I
- -
Patient Age: 73
Patient Sex: Female
Vancomycin Day #: 1
Indication: Genito-Urinary Tract
Requesting Provider: Dr. Cooper
Pertinent Antimicrobial Allergies:
NKDA
Height / Weight:
Actual Weight 65.459 kg
- Vital Signs / Lab Results
Temp Pulse Resp BP Pulse Ox
100.3 F 97 25 89/56 98
05/26/23 14:15 05/26/23 15:30 05/26/23 15:30 05/26/23 15:30 05/26/23 15:30
Lab Results - Hematology
05/25/23 05/26/23
08:50 04:55
WBC 7.2 9.2
Lab Results - Chemistry
05/25/23 05/26/23
08:50 04:55
BUN 24 H 19 H
Creatinine 1.0 1.0
Albumin 2.7 L
05/26/23
12:35
Lactic Acid 2.2 H
Lab Results - Urine
05/26/23
10:51
Urine Nitrite (Reflex) Negative
Leukocyte Esterase Rfl 1+ A
Urine WBC (Reflex) >100 A
Urine Bacteria (Reflex) Many A
--- NOTE | 2023-05-26 15:46 | PTCARENOTE ---
Addendum entered by Yani Coates 05/26/23 18:34:
Pain unrelieved by dilaudid. Pt noted to become tachycardic, hypertensive, diaphoretic with chills and sats dropping to mid 80s. Afebrile. O2 increased to 6L NC. Dr. Cooper at bedside, order placed for additional dose of dilaudid- administered as
ordered along with PRN Tylenol. Reports improvement in pain shortly after. Advised by Dr. Ceja to irrigate patel per orders, pt tolerated well with clear output. Gilbert gtt adjusted, see intervention. Pt now sleeping soundly, VS improved at this
time.
Addendum entered by Yani Coates 05/26/23 16:59:
Repeat lactic drawn and sent. IVF, Abx, and Gilbert infusing as ordered. Dr. Cooper at bedside to speak with pt and family. VSS at this time. O2 weaned back to 2L with sats in the mid 90's. Medicated with PRN Dilaudid for pelvic pain- see MAR. Able to
make needs known, call almaraz within reach.
Original Note:
Pt received from 2S via bed. Aox3. Gilbert infusing as ordered, dose adjusted per protocol. NSR on tele monitor. Family at bedside, tearful. Updated on plan of care and emotional support provided.
--- NOTE | 2023-05-26 15:52 | W.PN.UPDATE ---
Update Note
Progress Note Update
see addendum of progress note
[2023-05-26] MEDS: VANCOCIN 300 MG IV (16:11)
[2023-05-26] MEDS: VANCOCIN 300 ML IV (16:11)
[2023-05-26 16:41] LABS: Lactic Acid 0.6 mmol/L (0.7-2.0)
[2023-05-26] MEDS: DILAUDID 0.25 MG IV ×2 (16:43→17:40)
[2023-05-26] MEDS: REVATIO PO (16:47)
--- NOTE | 2023-05-26 16:49 | CON.CAR ---
Addendum entered and electronically signed by Faisal Rubio MD 05/26/23 17:47:
I saw and examined the patient.
The Floorleader's note was reviewed and I agree with the note.
Comment:
GEN: No distress, awake, Ox3
HEENT: supple, anicteric, mmm
LUNGS: CTA, no wheezes/rales
CV: Reg, S1/S2, 1/6 syst LSB, no gallop
ABD: soft, BS+, NT/ND
EXT: No edema
NEURO: Gross non-focal
SKIN: No rash
Plan:
73-year-old female with complex past medical history including pulm hypertension, scleroderma/lupus overlap, chronic heart failure with preserved ejection fraction, hypertension, hyperlipidemia, history of bilateral PE presents status post renal
biopsy 05/24/2021 with hematuria, sepsis, and bilateral hydronephrosis. She had a renal biopsy 1 day ago and today started having fever, lactic acidosis and hypotension. She was given IV fluids with no improvement. She then was placed on
Gilbert-Synephrine. We are asked to help manage her pulmonary hypertension medications which include letairis and revatio.
Continue Gilbert-Synephrine for blood pressure support. Her volume status is overall stable. Okay to continue gentle hydration.
Would hold Revatio tonight. Okay to continue letairis.
Continue antibiotics. Will follow.
Original Note:
Consultation
Consultation Request
Date/Time Consultation Performed: 05/26/23
Requesting Provider: Dr. Cooper
Performing Provider: Dr. Rubio
Reason for Consultation: hypotension
Medical History
-
Chief Complaint: renal biopsy
History of Present Illness:
Patient is a 73-year-old female with past medical history of pulmonary hypertension, WHO Group 1 associated with crest, on revatio also appears recently started on letairis, recently diagnosed scleroderma with lupus overlap, chronic heart failure
with improved EF, hypertension, hyperlipidemia, GERD, osteoarthritis, history of bilateral PE status post IVC filter in 2007. She had been diagnosed with scleroderma with lupus overlap syndrome 04/2023 after was noted to have abnormal rheumatologic
blood work. She was then referred to nephrology given proteinuria and microscopic hematuria. She underwent left renal biopsy on 05/24/2021. In PACU she developed mild gross hematuria which reportedly resolved quickly. She was noted by ultrasound
to have severe right-sided hydronephrosis and admitted for observation. Today patient noted to have fever, elevated lactic acidosis, and hypotension. She was started on IVF without significant improvement so started on neosynephrine. OP revatio
placed on hold. Cardiology consulted for evaluation.
PMH:
pulmonary hypertension, WHO Group 1 associated with crest, on revatio
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
chronic heart failure with improved EF
recovered nonischemic cardiomyopathy
CKD stage 3A
hypertension
hyperlipidemia
GERD
osteoarthritis
history of bilateral PE status post IVC filter in 2007
Past Medical History
Past Medical History: Other (in HPI)
Social History
Tobacco: Non-Smoker
Alcohol: Occasional
Allergies / Home Medications
Allergy/AdvReac Type Severity Reaction Status Date / Time
No Known Allergies Allergy Verified 09/14/22 06:12
�Medication �Instructions �Recorded �Confirmed �Type
aspirin 81 mg tablet,delayed 81 mg PO DAILY Blood clot 03/10/22 05/25/23 History
release prevention/tx
esomeprazole magnesium 20 mg 20 mg PO QPM GERD 03/10/22 05/25/23 History
capsule,delayed release (Nexium)
ferrous sulfate 325 mg (65 mg 325 mg PO DAILY Supplement 03/10/22 05/25/23 History
iron) tablet (Iron (ferrous
sulfate))
simvastatin 20 mg tablet 20 mg PO HS High cholesterol 03/10/22 05/25/23 History
metoprolol succinate 25 mg 25 mg PO DAILY #90 tabs 03/12/22 05/25/23 Rx
tablet,extended release 24 hr
cranberry extract 200 mg capsule 200 mg PO DAILY 09/10/22 05/25/23 History
(Ellura)
furosemide 40 mg tablet (Lasix) 60 mg PO DAILY 03/26/23 05/25/23 History
ambrisentan 5 mg tablet (Letairis) 5 mg PO DAILY 05/24/23 05/25/23 History
losartan 25 mg tablet 50 mg PO DAILY 05/24/23 05/25/23 History
sildenafil (pulm.hypertension) 20 20 mg PO TID 05/24/23 05/25/23 History
mg tablet
ambrisentan 5 mg tablet 5 mg PO DAILY 05/25/23 05/25/23 History
Review of Systems
-
History Source: Patient
All other systems: Negative unless noted
Physical Exam
Vital Signs
Temp Pulse Resp BP Pulse Ox
100.3 F 97 25 89/56 96
05/26/23 14:15 05/26/23 15:30 05/26/23 15:30 05/26/23 15:30 05/26/23 16:33
Lab Results
05/26/23 15:00
05/26/23 04:55
Impression / Plan
-
Primary Paving Plant Operator: Dr. Obrien/Dr. Diann Bledsoe
Assessment:
Presentation for L renal biopsy for proteinuria, microscopic hematuria
B/L hydronephrosis by CTAP
Small left renal perinephric hematoma
Sepsis
Hypotension, requiring pressor support
Acute anemia
pulmonary hypertension, WHO Group 1 associated with crest, on revatio
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
chronic heart failure with improved EF
recovered nonischemic cardiomyopathy
CKD stage 3A
hypertension
hyperlipidemia
GERD
osteoarthritis
history of bilateral PE status post IVC filter in 2007
ECHO 08/04/22: EF 50%, mild LVH with septal flattening, MAC, mild to moderate MR, mildly dilated left atrium, aortic sclerosis, mild AR, dilated and hypokinetic RV with RV H, dilated right atrium, moderate to severe TR, severe pulmonary hypertension,
PAP 7984 mmHg, mildly dilated pulmonary artery with mild to moderate pulmonary regurgitation
Plan:
-Patient presented for L renal biopsy and was noted in PACU to have R hydronephrosis with subsequent decompensation with evidence of sepsis. Currently requiring pressor support with neosynephrine. CTAP with evidence of B/L hydronephrosis. Cardiology
consulted for eval as OP revatio placed on hold.
-blood cultures pending
-hgb relatively stable at 8.5
-lactic acid trending down from 12:30
-continue abx
-continue pressors as able
-holding OP toprol.
-ideally would continue revatio, however hypotension precludes at this time. hopefully can restart in AM. would continue OP letairis
-check EKG. follow on tele
-consider reassessment of EF in AM, last from 07/2022 as above
Data Reviewed
-
CT Scan: Report Reviewed by me
Medical Tests (Nuc Med, Echo etc): Report Reviewed by me
Labs: Labs Reviewed by me
Old Records: Reviewed
[2023-05-26] MEDS: TYLENOL 1000 MG PO (17:46)
[2023-05-26] MEDS: PROTONIX 40 MG PO (17:46)
[2023-05-26] MEDS: COMPAZINE 10 MG IV (17:52)
[2023-05-26 20:25] LABS: Hemoglobin 8.3 g/dL (12.0-16.0)
[2023-05-26] MEDS: LIPITOR 10 MG PO (20:32)
[2023-05-27] VITALS (52 sets, daily range): BP systolic 81–120; BP diastolic 58–101; BMI 25.0
[2023-05-27] MEDS: NEO-SYNEPHRINE 250 IV ×2 (03:32→18:57)
[2023-05-27 03:55] LABS: Hemoglobin 8.7 g/dL (12.0-16.0)
[2023-05-27 04:21] LABS: Blood Urea Nitrogen 29 mg/dl (7-17); Calcium 8.5 mg/dl (8.4-10.2); Carbon Dioxide 19 mmol/L (22-30); Chloride 108 mmol/L (98-107); Estimated Creatinine Clearance 31 ml/min; Glucose 110 mg/dl (70-99); Potassium 4.5 mmol/L (3.5-5.1); Sodium 132 mmol/L (135-145); eGFR 37.03
[2023-05-27 04:30] LABS: Vancomycin Random 13.4 ug/ml
[2023-05-27] MEDS: STERILE WATER FOR INJECTION 10 ML IV ×3 (05:23→19:58)
[2023-05-27] MEDS: MAXIPIME 2000 MG IV (05:23)
[2023-05-27] MEDS: DILAUDID 0.25 MG IV (05:23)
--- NOTE | 2023-05-27 06:26 | W.PN.HOSP.TC ---
Today's Communication/Plan
-
.
Assessment / Plan
Assessment / Plan
Physical Exam
General: Well Developed, Well Nourished and No Apparent Distress
HEENT: Normocephalic, dry mucous membranes and Atraumatic
Respiratory: limited with rhonchi( mild)
Cardiac: S1/S2
GI: Soft, Non Tender, Non Distended and Normal Bowel Sounds
Rectal: Deferred by Provider
Musculoskeletal: No Clubbing, No Cyanosis and No Edema
Skin: No Rash
Neuro: Nonfocal/grossly intact
Psych: no agitation, pleasant.
#Sepsis POA / severe sepsis evolved into septic shock
Bacteremia With gram negative bacilli
Started on broad spectrum IV Abx, Cefepime 2 gm BID and Vancomycin
Reculture blood 4/4
c/w IVF
Savage catheter
Gilbert-synephrine to keep BP within range
Afebrile over night, WBC normal
Known to have lupus/ scleroderma
Appreciate ID, urology and nephrology input
# ALTA due to sepsis/ hypotension
c/w IVF
Has Savage
Avoid nephrotoxic medications and renally adjust doses.
# Hematuria after left renal biopsy
Creatinine 1.5, hematuria is resolving. HGB level stable
-Postprocedure ultrasound showed small subcapsular hematoma which was not expanding. D/w IR and urology doctors.
c/w pain control, manual irrigation of Savage ( no clots per nursing staff)
Pain control with Tylenol, low dose Dilaudid.
# Combination of acute blood loss anemia and anemia of chronic disease
-Hemoglobin 8.7 this morning,
Check iron studies, low iron. Will give IV iron when stable.
#Hyponatremia, sodium 134
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
-Await results of kidney biopsy
Primary monument mason is Dr. Guan
# Recently diagnosed scleroderma/lupus overlap
#Chronic HFpEF
-Echo from last year showing EF of 50%
-Hold Lasix , c/w raquel IVF
- Would c/w metoprolol
Primary adoption manager Dr Diann Bledsoe
Last cath , right side on 03/26/23 showed Severe pulmonary hypertension with minimally elevated left-sided filling pressures
Appreciate cardiology input
#Mild to moderate mitral regurgitation
#Severe pulmonary hypertension
Moderate to severe tricuspid regurgitation
- resume Ambrisentan
- Held sildenafil due to hypotension
#Mild to moderate pulmonary regurgitation
#Essential hypertension
Holding BP medications.
Hyperlipidemia
-Continue statin
GERD
Poor appetite due to sepsis.
PRN Compazine
-Continue PPI
Osteoarthritis
Full code
DVT prophylaxis�SCDs, Holding SQ heparin due to renal hematoma and Hematuria.
Cardiac diet
Total time spent to see the patient, examine the patient on the floor, review data and lab results, discuss treatment plan with patient, nursing staff around 59 minutes.
Anticipated Discharge: > 48 hours
Subjective/Interval History
-
Date of Service: May 27, 2023
No chest pain
No sob
Objective Data
-
Labs:
Laboratory Results
05/26/23 05/27/23
20:18 03:37
Hgb 8.3 L 8.7 L
Hct 26.0 L
Sodium 132 L
Potassium 4.5
Chloride 108 H
Carbon Dioxide 19 L
BUN 29 H
Creatinine 1.5 H
Glucose 110 H
Calcium 8.5
Vital Signs:
Vital Signs
Temp Pulse Resp BP Pulse Ox
97.6 F 87 20 92/63 96
05/27/23 03:20 05/27/23 04:30 05/27/23 04:30 05/27/23 04:30 05/27/23 04:30
I&O
05/25/23 05/26/23 05/27/23
06:59 06:59 06:59
Intake Total 630 / 630 600 / 600
Output Total 725 / 725
Balance 630 / 630 -125 / -125
--- NOTE | 2023-05-27 06:46 | PTCARENOTE ---
Patient afebrile overnight. Oxygen weaned to 2 liters. Remains on helen at 60 mcg/min. Patel with 350 foul smelling blood tinged urine. Patient with 8/10 pelvic pain- patel irrigated without resistance or clots. PRn dilaudid given.
[2023-05-27] MEDS: FEOSOL 325 MG PO (07:21)
--- NOTE | 2023-05-27 09:42 | W.PN.NEPH.PH ---
Today's Communication / Plan
-
Pressors to keep MAP 65 or
Normal saline to
Follow-up H&H and BMP
Transfuse if hemoglobin drops below 8
No need for repeat CAT scan at this time
Antibiotic
Assessment/Plan
-
Assessment:
gross hematuria
c/f bleeding s/p kidney biopsy
Urosepsis of Klebsiella type
23g proteinuria
c/f lupus/scleroderma
Bilateral hydronephrosis
ALTA
Plan:
-CT report reviewed:
Small left renal perinephric hematoma related to prior biopsy procedure. Small amount of increased attenuation in the visible distal left ureter likely related to blood products from prior biopsy.
Bilateral renal cortical thinning. Chronic bilateral hydronephrosis and hydroureter, with severe right hydronephrosis and moderate to severe left hydronephrosis. Slightly worse as compared with prior study.
Bladder evaluation significantly limited by streak artifacts. There is some wall thickening/trabeculation suggesting outlet obstruction or neurogenic bladder. Probable component of bladder prolapse, not as well-seen as on the prior study.
-Antibiotic therapy directed towards Klebsiella urosepsis with cefepime
-Creatinine up to 1.5 likely a function of hypotension yesterday, remains non oliguric, maintain MAP ~ 65, antihypertensives held
-Hemoglobin dropped from 9.7-8.8, stable at 8.7 today,
-Urology believes bilateral hydronephrosis is due to chronic bladder outlet obstruction, patel in place
- continue normal saline and pressor support to maintain MAP >65
- closely monitor urine output for clots, hand irrigation ordered by urology
-hold diuretics at this time due to concern for active bleed but she will need regimen adjusted before going home
-ARB held for low blood pressure
- BMP in AM (bl Cr 1.1-1.18)
-Discussed plan with patient and family members
-Patient is critically ill , following renal biopsy procedure, now with ALTA and urosepsis on pressor support and now with urosepsis sepsis and hemodynamic instability
Total Time Spent with Patient (in minutes): Patient critically ill 32 minutes critical care time spent with
-
-
Date of Service: May 27, 2023
CC / HPI / ROS
-
Chief Complaint:
Macrohematuria status post renal biopsy
History of Present Illness:
Urosepsis now on cefepime
Hemodynamically labile on saline and Gilbert-Synephrine
Hemoglobin down from 9 7-8.7 with gross hematuria via patel
ALTA noted with creatinine up to 1.5
Review of Systems:
patel with dark urine
No chest pain or shortness of breath although on 2 L nasal cannula
bladder pain earlier this am
fevers noted
no chest pain or vomiting
Labs
-
Labs:
WBC 9.2 10^3/uL (4.8-10.8) 05/26/23 04:55
RBC 2.94 10^6/uL (4.20-5.40) L 05/26/23 04:55
Hgb 8.7 g/dL (12.0-16.0) L 05/27/23 03:37
Hct 26.0 % (37.0-47.0) L 05/26/23 20:18
Plt Count 214 10^3/uL (130-400) 05/26/23 04:55
Sodium 132 mmol/L (135-145) L 05/27/23 03:37
Potassium 4.5 mmol/L (3.5-5.1) 05/27/23 03:37
Chloride 108 mmol/L (98-107) H 05/27/23 03:37
Carbon Dioxide 19 mmol/L (22-30) L 05/27/23 03:37
BUN 29 mg/dl (7-17) H 05/27/23 03:37
Creatinine 1.5 mg/dL (0.6-1.0) H 05/27/23 03:37
eGFR 37.03 05/27/23 03:37
Glucose 110 mg/dl (70-99) H 05/27/23 03:37
Calcium 8.5 mg/dl (8.4-10.2) 05/27/23 03:37
Albumin 2.7 g/dl (3.5-5.0) L 05/26/23 04:55
Physical Exam
-
Vital Signs:
Vital Signs
Temp Pulse Resp BP Pulse Ox
98.7 F 87 20 92/63 96
05/27/23 07:10 05/27/23 04:30 05/27/23 04:30 05/27/23 04:30 05/27/23 04:30
Cardiovascular:: Regular rate and rhythm
Respiratory:: Bilateral: Coarse
Lung Excursion:: Normal
Abdomen:: Nontender and Soft
Bowel Sounds:: Decreased
Extremity Edema:: None: Bilateral:
Patel Catheter: Yes
--- NOTE | 2023-05-27 10:06 | W.PN.CARDCBS ---
Today's Communication / Plan
-
Toprol and ambrisentan on hold for hypotension, would add back after weaning pressors
Lasix on hold for ALTA, appreciate nephrology input
Impression / Plan
-
Primary Grinder And Plater: Dr. Obrien/Dr. Diann Bledsoe
Assessment:
Presentation for L renal biopsy for proteinuria, microscopic hematuria
B/L hydronephrosis by CTAP
Small left renal perinephric hematoma
Sepsis
Hypotension, requiring pressor support
Acute anemia
pulmonary hypertension, WHO Group 1 associated with crest, on revatio
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
chronic heart failure with improved EF
recovered nonischemic cardiomyopathy
CKD stage 3A
hypertension
hyperlipidemia
GERD
osteoarthritis
history of bilateral PE status post IVC filter in 2007
ECHO 08/04/22: EF 50%, mild LVH with septal flattening, MAC, mild to moderate MR, mildly dilated left atrium, aortic sclerosis, mild AR, dilated and hypokinetic RV with RV H, dilated right atrium, moderate to severe TR, severe pulmonary hypertension,
PAP 7984 mmHg, mildly dilated pulmonary artery with mild to moderate pulmonary regurgitation
Plan:
-Patient presented for L renal biopsy and was noted in PACU to have R hydronephrosis with subsequent decompensation with evidence of sepsis
-Currently requiring pressor support with neosynephrine - Cardiology consulted for eval as OP revatio placed on hold
-Ideally would continue revatio, however hypotension precludes at this time. Eventual restart at BP improves. Continue OP letairis.
-Holding OP Toprol
-Wean pressors as able
-Lactic acidosis resolved, but has developed ALTA. Agree with holding lasix for now and monitoring Cr.
-Broad spectrum abx per primary team
Progress Note - Grinder And Plater
Subjective
Date of Service: May 27, 2023
NAOE. Remains in IMU on 2L NC. Requiring phenyelphrine for pressor support. Resting comfortably. No cardiac comaplaints.
Objective
Labs:
05/27/23 03:37
05/27/23 03:37
Labs
Hgb 8.7 g/dL (12.0-16.0) L 05/27/23 03:37
Hct 26.0 % (37.0-47.0) L 05/26/23 20:18
Plt Count 214 10^3/uL (130-400) 05/26/23 04:55
PT 14.5 Sec (11.4-14.6) 05/25/23 08:50
INR 1.15 05/25/23 08:50
Sodium 132 mmol/L (135-145) L 05/27/23 03:37
Potassium 4.5 mmol/L (3.5-5.1) 05/27/23 03:37
BUN 29 mg/dl (7-17) H 05/27/23 03:37
Creatinine 1.5 mg/dL (0.6-1.0) H 05/27/23 03:37
Glucose 110 mg/dl (70-99) H 05/27/23 03:37
Vital Signs and I&O:
Vital Signs
Temp Pulse Resp BP Pulse Ox
98.7 F 87 20 92/63 96
05/27/23 07:10 05/27/23 04:30 05/27/23 04:30 05/27/23 04:30 05/27/23 04:30
Vital Signs
Temp Pulse Resp BP Pulse Ox
98.7 F 87 20 92/63 96
05/27/23 07:10 05/27/23 04:30 05/27/23 04:30 05/27/23 04:30 05/27/23 04:30
Intake & Output
05/25/23 05/26/23 05/27/23 05/28/23
06:59 06:59 06:59 06:59
Intake Total 630 / 630 600 / 600
Output Total 725 / 725
Balance 630 / 630 -125 / -125
Physical Exam
Physical Exam
Gen: NAD, AA
HEENT: NC/AT, sclera anicteric
Neck: No JVD
CV: RRR, NL s1/s2
Lungs: CTAB on 2L NC
Abd: S/ND
Ext: No LE edema
Skin: Warm, dry
Neuro: Non-focal
--- NOTE | 2023-05-27 10:47 | CON.ID ---
Consultation
-
Date/Time Consultation Requested: 05/27/23 6:42
Date/Time Consultation Performed: 05/27/23 10:47
Requesting Provider: Dr Cooper
Performing Provider: Dr Chavez
Chief Complaint / Past History
Chief Complaint
post renal biopsy
History of Present Illness
Ms Nash is a 73 year old female with history of scleroderma/lupus overlap, CHF, pulmonary HTN who presented here 05/24 for elective L renal biopsy.
The procedure was initially uncomplicated, 30 minutes of face to face sedation time, of note severe right hydronephrosis was identified on preliminary US. No stones or nidus of infection was described. The biopsy was preformed on the contralateral
side - the left. No: dizziness, lightheadedness, chest pain or shortness of breath, abdominal pain or flank pain or urinary symptoms.
She was admitted for observation, Tmax 100.3, she subsequently developed hypotension and is currently on phenylephrine at 40 mcg/min down from a peak of 60 mcg/min, WBC 4/3 was 9.2, hgb 8.8, plt 214, L shift was noted, eos were not present, hgbs
being trended and stable in the 8s, cr initially 1.0 and increased to 1.5 today, UA 50-60 RBCs and > 100 WBCs, urine culture in progress, blood cultures x2 with Ecoli, note remote urine culture with a sensitive Klebsiella - no history of MDROs on
file here. She is currently on cefepime and vancomycin. ID is consulted for assistance with management.
Past History
Additional Past Medical History:
recently diagnosed scleroderma with lupus overlap, CHF, pulmonary hypertension, hypertension, hyperlipidemia, GERD, osteoarthritis
Past Surgical History: None
Allergy History:
No Known Allergies Allergy (Verified 09/14/22 06:12)
Medications Reviewed: Yes
Social History
Tobacco: Non-Smoker
Alcohol: None
Drug: None
Family History
Family History: Not Pertinent
Review of Systems
Review of Systems
General: Negative Fever or Chills
All systems: All other systems were reviewed and were negative
Vital Signs
Temp Pulse Resp BP Pulse Ox
98.7 F 87 20 92/63 98
05/27/23 07:10 05/27/23 04:30 05/27/23 04:30 05/27/23 04:30 05/27/23 08:00
Physical Exam
Physical Exam
Constitutional: No Acute Distress
Cardiovascular: Regular Rate and S1/S2; Negative Murmur or Rub
Pulmonary: Clear and Symmetric; Negative Wheezes, Rales or Rhonchi
Gastrointestinal: Soft, Non Tender, Non Distended and Normal Bowel Sounds
Genito-Urinary: Negative Suprapubic Tenderness or CVA Tenderness
Skin: Warm and Dry; Negative Rash or Jaundice
Wound: Other (surgical site clean no erythema, drainage warmth or tenderness)
Lines: PIV
Lab / Diagnostic Study Results
05/27/23 03:37
05/27/23 03:37
Abs Immat Gran (auto) 0.1 10^3/uL (0-0.05) H 05/26/23 04:55
Absolute Neuts (auto) 8.0 10^3/uL (1.4-6.5) H 05/26/23 04:55
Absolute Lymphs (auto) 0.3 10^3/uL (1.2-3.4) L 05/26/23 04:55
Absolute Monos (auto) 0.9 10^3/uL (0.1-0.6) H 05/26/23 04:55
Absolute Basos (auto) 0.0 10^3/uL (0-0.2) 05/26/23 04:55
Immature Gran % 0.5 % (0-0.5) 05/26/23 04:55
Neutrophils % 86.2 % (42.2-75.2) H 05/26/23 04:55
Lymphocytes % 3.0 % (20.5-51.1) L 05/26/23 04:55
Monocytes % 10.1 % (1.7-9.3) H 05/26/23 04:55
Eosinophils % 0.0 % (0-6) 05/26/23 04:55
Basophils % 0.2 % (0-2) 05/26/23 04:55
PT 14.5 Sec (11.4-14.6) 05/25/23 08:50
INR 1.15 05/25/23 08:50
Lactic Acid 0.6 mmol/L (0.7-2.0) L 05/26/23 16:18
Microbiology Results
Micro:
05/26/23 13:16 Blood Culture - Preliminary
Blood/Venous Escherichia coli
Gram Stain - Preliminary
05/26/23 10:51 Urine Culture - Preliminary
Urine
05/26/23 12:35 Blood Culture - Preliminary
Blood/Venous Positive culture in progress
Gram Stain - Preliminary
Assessment / Plan
Septic Shock
UTI due to E coli
E coli bacteremia
R sided Hydronephrosis
Possible Neurogenic Bladder - has been on treatment for overactive bladder
- suspected neurogenic bladder with associated R hydronephrosis may explain development of UTI with subsequent progression to shock; I personally do not attribute this to the procedure which had minimal sedation time and did not involve placement of
a patel.
- not known to be colonized with MDROs however reports numerous UTIs about 1 year ago - remains on 2 pressors; will treat as for possible ESBL GNR. The surgical site itself does not have evidence of infection, she doesnt report any other convincing
focal symptoms at this time, though if not responding to treatment overnight will broaden workup
- switched to meropenem, stopped cefepime
- will keep vancomycin for the moment - low threshold for dc if improving
- agree with patel at this time, hopefully for removal before discharge and switch to timing voiding/straight caths; if removal not feasible then would like to see patel exchanged after several days of effective rx
- follow clinically
Care Review
Plan reviewed with: Physician (Dr Johnson - timed voids)
--- NOTE | 2023-05-27 11:54 | PTCARENOTE ---
I can n ot verify VS before 7 am
--- NOTE | 2023-05-27 12:37 | PN.CDI ---
Addendum entered and electronically signed by Rock Cooper MD 05/27/23 13:01:
Acute hypoxic respiratory failure
Original Note:
CDI
- -
CDI:
Physician Documentation Request
Admit Date: 05/25/23 18:33
Dear Doctor Kenneth,
Clinical Indicators:
Patient admitted with sepsis, evolving septic shock.
05/25 (11:46) RN note, 'Pt 02 desatting to mid 80s on RA, placed on 2L nasal cannula.'
05/25 RN (18:34) RN note, '...sats dropping to mid 80s....O2 increased to 6L NC.'
05/25 RR trend:
05/26/23
15:30 05/26/23
16:00 05/26/23
16:30
Resp Rate 25 27 25
05/26/23
17:00 05/26/23
17:30 05/26/23
18:00
Resp Rate 23 27 35
05/26/23
18:30 05/26/23
19:00 05/26/23
19:30
Resp Rate 23 30 29
Please clarify which of the following accurately represents the patient's respiratory status:
Acute hypoxic respiratory failure
Hypoxia only
Other, please specify
Additional information for Respiratory Failure:
Recognized criteria for Respiratory Failure (Source: [facility] Dec 2012)
ABGs: (1 or more) Symptoms Please indicate type if known
1. p)2 <60 or RA SPO2 <91% on RA 1. Tachypnea, SOB, dyspnea Hypoxic
2. pCO2 50 and pH <7.35 2. Use of accessory muscles Hypercapnic
3. pO2 decrease of pCO2 increase by 3. Pallor or cyanosis Hypoxic and Hypercapnic
10 mmHg from baseline if known 4. Anxiety or restlessness Unable to determine
5. Unable to speak in full sentences
Supplemental O2 of > 40% (5LPM) Intubation is not required
Use of terms such as suspected, likely, concern for, or probable (associated with a specific diagnosis that is being evaluated, monitored, or treated as if it exists) are acceptable and can be coded in the inpatient setting, when documented at the
time of discharge.
Thank you,
BIBI Blue RN
CDI Specialist
available via tiger text
Please use your independent medical judgment in providing your response.
--- NOTE | 2023-05-27 13:02 | W.PN.URO.CBU ---
Today's Communication / Plan
-
Abx per ID
Maintain patel
Minimal hematuria
Assessment / Plan
-
73F with proteinuria, scleroderma with lupus overlap, currently admitted for observation after left renal biopsy
Urology consulted for severe R hydronephrosis noted during procedure and hematuria
History of pelvic organ prolapse s/p surgery with Dr. Johnson 08/2022, currently undergoing PTNS for urge urinary incontinence
Developed sepsis with E coli bacteremia 05/25
- Suspect sepsis is from chronic colonization of upper urinary tracts due to ureteral reflux, with renal biopsy introducing bacteria to renal parenchyma
- Continue abx with treatment course per ID
- Small perinephric hematoma on CT which does not appear to represent significant bleeding. HGB stable
- CTAP showed bilateral hydroureteronephrosis is likely due to chronic neurogenic bladder with vesicoureteral reflux. She has had workup for voiding dysfunction and detrusor overactivity, but may need further outpatient workup with repeat
videourodynamics to evaluate this. Hydronephrosis is similar and stable from prior CT last year. No acute obstruction.
- Patel in place with minimal residual hematuria
- Patient has tried CIC in the past and was not able to self catheterize. Recommend discharge home with patel pending further workup
- Okay to exchange patel catheter per ID recs
- Outpatient follow up for further neurogenic bladder eval
Diagnosis
-
Date of Service: May 27, 2023
-
Patient Diagnosis:
Neurogenic bladder
Hydronephrosis
Hematuria s/p renal biopsy
Septic UTI with bacteremia
Post Op Day:
Subjective
-
Feeling much better today
Decreasing pressor requirements
Objective
-
Vital Signs
Temp Pulse Resp BP Pulse Ox
98.4 F 102 22 91/58 99
05/27/23 11:09 05/27/23 12:45 05/27/23 12:45 05/27/23 12:34 05/27/23 12:45
Intake and Output
05/26/23 05/27/23 05/28/23
06:59 06:59 06:59
Intake Total 630 / 630 600 / 600
Output Total 725 / 725 400 / 400
Balance 630 / 630 -125 / -125 -400 / -400
Intake:
Oral fluids 480 / 480
IV fluids (Total) 150 / 150 500 / 500
Nss 150 / 150
IV piggybacks 100 / 100
Output:
Urine, Patel 725 / 725 400 / 400
True urine output from hand 0 / 0
irrigation
Other:
Number of approximated SMALL 2 2
amounts of urine
Number of approximated MODERATE 5 3
amounts of urine
Laboratory Results
05/27/23 03:37
05/27/23 03:37
Physical Exam
-
General - well developed, well nourished, no acute distress
Chest - clear bilaterally
Abdomen - soft, non-tender
Patel in place, light red without active bleeding
Skin - warm & dry with no rash
Neuro - AOx3, no motor deficits
--- NOTE | 2023-05-27 13:59 | PHA.VAN.FU ---
Vancomycin Assessment / Plan
- Assessment
Renal Function: SCR Increasing
In the past 24 hrs, patient has been: Afebrile
Concomitant Antimicrobials: meropenem
- Assessment - Therapeutic Drug Monitoring
Random Level: 13.4 - drawn ~11H after 1500mg loading dose
- Dosing Plan
Dosing by Level: Re-dose today (Vanc 750mg)
- Monitoring Plan
Random Level: 05/27 0600
- Follow Up
Pharmacy will continue to follow.
Vancomycin Follow UP
- -
Patient Age: 73
Patient Sex: Female
Vancomycin Day #: 2
Indication: Genito-Urinary Tract
Requesting Provider: Dr. Cooper / Scott
Pertinent Antimicrobial Allergies:
NKDA
Height / Weight:
Height 5 ft 5 in
Actual Weight 68.039 kg
- Vital Signs / Lab Results
Temp Pulse Resp BP Pulse Ox
98.4 F 102 22 91/58 99
05/27/23 11:09 05/27/23 12:45 05/27/23 12:45 05/27/23 12:34 05/27/23 12:45
Lab Results - Hematology
05/25/23 05/26/23
08:50 04:55
WBC 7.2 9.2
Lab Results - Chemistry
05/25/23 05/26/23 05/27/23
08:50 04:55 03:37
BUN 24 H 19 H 29 H
Creatinine 1.0 1.0 1.5 H
Estimated Creat Clear 31
Albumin 2.7 L
05/26/23 05/26/23
12:35 16:18
Lactic Acid 2.2 H 0.6 L
Microbiology Results
05/26/23 13:16 Blood Culture - Preliminary
Blood/Venous Escherichia coli
Gram Stain - Final
05/26/23 10:51 Urine Culture - Preliminary
Urine
05/26/23 12:35 Blood Culture - Preliminary
Blood/Venous Positive culture in progress
Gram Stain - Preliminary
Therapeutic Drug Monitoring
Random Vancomycin 13.4 ug/ml 05/27/23 03:37
[2023-05-27] MEDS: MERREM 500 MG IV ×2 (14:03→19:58)
[2023-05-27] MEDS: VANCOCIN 150 IV (14:09)
[2023-05-27] MEDS: NSS 1000 IV ×2 (14:12→23:30)
[2023-05-27] MEDS: PROTONIX 40 MG PO (17:14)
[2023-05-27] MEDS: LIPITOR 10 MG PO (19:58)
[2023-05-28] VITALS (30 sets, daily range): BP systolic 83–118; BP diastolic 57–83; PULSE 100; O2SAT 94; BMI 25.6; BMI 25.8
[2023-05-28 03:32] LABS: Hematocrit 23.1 % (37.0-47.0); Hemoglobin 7.8 g/dL (12.0-16.0); Mean Corp Hgb Conc. 33.8 g/dL (33.0-37.0); Mean Corpuscular Hgb 31.2 pg (27.0-31.0); Mean Corpuscular Volume 92.4 fL (81.0-99.0); Mean Platelet Volume 9.6 fL (7.4-10.4); Platelet Count 119 10^3/uL (130-400); Red Cell Dist. Width 15.1 % (11.5-14.5); White Blood Cell Count 9.6 10^3/uL (4.8-10.8)
[2023-05-28 03:54] LABS: Blood Urea Nitrogen 30 mg/dl (7-17); Calcium 8.3 mg/dl (8.4-10.2); Carbon Dioxide 19 mmol/L (22-30); Chloride 110 mmol/L (98-107); Estimated Creatinine Clearance 39 ml/min; Glucose 94 mg/dl (70-99); Sodium 136 mmol/L (135-145); eGFR 48.39
[2023-05-28] MEDS: STERILE WATER FOR INJECTION 10 ML IV (04:05)
[2023-05-28] MEDS: MERREM 500 MG IV (04:05)
[2023-05-28 04:13] LABS: Vancomycin Random 12.9 ug/ml
--- NOTE | 2023-05-28 06:36 | W.PN.HOSP.TC ---
Today's Communication/Plan
-
.
Assessment / Plan
Assessment / Plan
Physical Exam
General: Well Developed, Well Nourished and No Apparent Distress
HEENT: Normocephalic, dry mucous membranes and Atraumatic
Respiratory: limited, no rales or wheezes.
Cardiac: S1/S2
GI: Soft, Non Tender, Non Distended and Normal Bowel Sounds
Rectal: Deferred by Provider
Musculoskeletal: No Clubbing, No Cyanosis and No Edema
Skin: No Rash
Neuro: Nonfocal/grossly intact
Psych: no agitation, pleasant.
#Sepsis POA / severe sepsis evolved into septic shock
Bacteremia With E Coli
Started on broad spectrum IV Abx, Cefepime 2 gm BID and Vancomycin , changed to meropenem on 05/26
Reculture blood 05/26
c/w IVF, wean off slowly upon good oral intake
Savage catheter
Gilbert-synephrine to keep BP within range , wean off, start oral Midodrine
Afebrile over night, WBC normal
Known to have lupus/ scleroderma
Appreciate ID, urology and nephrology input
# ALTA due to sepsis/ hypotension
s/p IVF
Creatinine down to 1.2
Has Savage
Avoid nephrotoxic medications and renally adjust doses.
# Acute blood loss anemia from hematuria
Underlying also anemia of chronic disease
Low Iron level, c/w oral Iron.
will give one unit of RBCs
Consent signed
# Hematuria after left renal biopsy
Creatinine 1.2, hematuria is resolving. HGB level stable
-Postprocedure ultrasound showed small subcapsular hematoma which was not expanding. D/w IR and urology doctors.
c/w pain control, manual irrigation of Savage ( no clots per nursing staff)
Pain control with Tylenol, low dose Dilaudid.
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
-Await results of kidney biopsy
Primary sight mounter is Dr. Guan
# Recently diagnosed scleroderma/lupus overlap
#Chronic HFpEF
-Echo from last year showing EF of 50%
-Holding Lasix , c/w raquel IVF
- Would c/w metoprolol, low dose to avoid tachycardia
Primary cracker dough mixer Dr Diann Bledsoe
Last cath , right side on 03/26/23 showed Severe pulmonary hypertension with minimally elevated left-sided filling pressures
Appreciate cardiology input
#Mild to moderate mitral regurgitation
#Severe pulmonary hypertension
Moderate to severe tricuspid regurgitation
- resume Ambrisentan
- Held sildenafil due to hypotension
#Mild to moderate pulmonary regurgitation
#Essential hypertension
Holding BP medications.
Hyperlipidemia
-Continue statin
# Hyponatremia, mild
GERD
Poor appetite due to sepsis.
PRN Compazine
-Continue PPI
Osteoarthritis
Full code
DVT prophylaxis�SCDs, Holding SQ heparin due to renal hematoma and Hematuria.
Cardiac diet
Total time spent to see the patient, examine the patient on the floor, review data and lab results, discuss treatment plan with patient, nursing staff around 57 minutes.
Anticipated Discharge: > 48 hours
Subjective/Interval History
-
Date of Service: May 28, 2023
No chest pain
No abd pain
Objective Data
-
Labs:
Laboratory Results
05/28/23
03:23
WBC 9.6
Hgb 7.8 L
Hct 23.1 L
Plt Count 119 L D
Sodium 136
Potassium 4.0
Chloride 110 H
Carbon Dioxide 19 L
BUN 30 H
Creatinine 1.2 H
Glucose 94
Calcium 8.3 L
Vital Signs:
Vital Signs
Temp Pulse Resp BP Pulse Ox
98.5 F 94 16 101/68 95
05/28/23 04:38 05/28/23 06:00 05/28/23 06:00 05/28/23 06:00 05/28/23 06:00
I&O
05/26/23 05/27/23 05/28/23
06:59 06:59 06:59
Intake Total 630 / 630 600 / 600 390 / 390
Output Total 725 / 725 2175 / 2175
Balance 630 / 630 -125 / -125 -1785 / -1785
--- NOTE | 2023-05-28 06:39 | PTCARENOTE ---
Patient remains on helen. Savage draining blood tinged urine. Afebrile. no complaints of pelvic pain.
[2023-05-28] MEDS: TOPROL XL 12.5 MG PO (07:40)
[2023-05-28] MEDS: FEOSOL 325 MG PO (07:41)
[2023-05-28] MEDS: ProAmatine 5 MG PO ×3 (07:41→17:12)
--- NOTE | 2023-05-28 09:37 | W.PN.ID1 ---
Date of Service
Date of Service: May 28, 2023
Today's Communication
- start cefazolin for today
- tomorrow AM switch to keflex 500 mg PO QID x7 more days
- agree with patel at this time, hopefully for removal before discharge and switch to timing voiding/straight caths; if removal not feasible then would like to see patel exchanged after several days of effective rx
- follow up with urology
Assessment / Plan
Septic Shock - improving
UTI due to E coli
E coli bacteremia
R sided Hydronephrosis
Possible Neurogenic Bladder - has been on treatment for overactive bladder
- suspected neurogenic bladder with associated R hydronephrosis may explain development of UTI with subsequent progression to shock; I personally do not attribute this to the procedure which had minimal sedation time and did not involve placement of
a patel.
- sensi back on the E coli
- start cefazolin for today, stop vancomycin, stop meropenem
- tomorrow AM switch to keflex 500 mg PO QID x7 more days
- agree with patel at this time, hopefully for removal before discharge and switch to timing voiding/straight caths; if removal not feasible then would like to see patel exchanged after several days of effective rx
- follow up with urology
Chief Complaint
-: UTI
Subjective / Review of Systems
remains afebrile
phenylephrine dose declining,
without leukocytosis, plt declining
cr improved 1.2 today
CXR: PICC in place
no cva or suprapubic tenderness
Vital Signs / Physical Exam
Vital Signs
Vital Signs
Temp Pulse Resp BP Pulse Ox
98.2 F 100 16 102/74 98
05/28/23 07:42 05/28/23 07:40 05/28/23 06:00 05/28/23 07:41 05/28/23 08:00
Physical Exam
Constitutional: No Acute Distress
Cardiovascular: Regular Rate and S1/S2; Negative Murmur or Rub
Pulmonary: Clear and Symmetric; Negative Wheezes or Rales
Gastrointestinal: Soft, Non Tender, Non Distended and Normal Bowel Sounds
Genito-Urinary: Negative Suprapubic Tenderness or CVA Tenderness
Skin: Warm and Dry; Negative Rash or Jaundice
Objective Data
Lab Data
Lab Results
05/28/23 03:23
05/28/23 03:23
PT 14.5 Sec (11.4-14.6) 05/25/23 08:50
INR 1.15 05/25/23 08:50
Estimated Creat Clear 39 ml/min 05/28/23 03:23
Lactic Acid 0.6 mmol/L (0.7-2.0) L 05/26/23 16:18
Total Bilirubin 0.5 mg/dl (0.2-1.3) 05/26/23 04:55
AST 16 U/L (14-36) 05/26/23 04:55
ALT < 10 U/L (0-35) 05/26/23 04:55
Alkaline Phosphatase 127 U/L (38-126) H 05/26/23 04:55
Most recent labs reviewed.
Micro Results:
05/26/23 13:16 Blood Culture - Preliminary
Blood/Venous Escherichia coli
Gram Stain - Final
05/26/23 12:35 Blood Culture - Preliminary
Blood/Venous Positive culture in progress
Gram Stain - Preliminary
05/27/23 12:34 Blood Culture - Pending
Blood/Venous
05/26/23 10:51 Urine Culture - Preliminary
Urine
--- NOTE | 2023-05-28 09:50 | W.PN.CARDCBS ---
Addendum entered and electronically signed by Adiel Alcaraz MD 05/28/23 11:13:
Patient reports weight at home is normally between 140 and 144 pounds. Standing scale weight is 155 pounds on 05/27
Addendum entered and electronically signed by Adiel Alcaraz MD 05/28/23 11:11:
I saw and examined the patient.
The SALT MANAGER or PA's note was reviewed and I agree with the note.
Comment: General: Well developed, well nourished in NAD.
Neck: Supple, no JVD, HJR, carotids +2 B/L, no bruits bilaterally.
Heart: Non displaced PMI, RRR, no murmurs, No S3, S4, no rubs.
Lungs: Scattered rhonchi
Extremities: No clubbing, cyanosis or edema bilaterally.
Neuro: Grossly nonfocal, awake, alert and oriented x3.
Pressors are off. Midodrine has been started. Toprol has been resumed given tachycardia. Resume Revatio when blood pressure allows. Patient is for transfusion which hopefully will help bp. Lasix being managed by nephrology and was held due to
renal insufficiency which has improved. Creatinine 1.2 on 05/27 and was 1.5 on 05/26
Original Note:
Today's Communication / Plan
-
Attempt to wean off pressors as blood pressure tolerates
Now on midodrine 5 mg TID
Resume low-dose Toprol given tachycardia
Consider blood transfusion
If blood pressure improves would like to see back on sildenafil
Impression / Plan
-
Primary Museum Assistant: Dr. Obrien/Dr. Diann Bledsoe
Assessment:
Presentation for L renal biopsy for proteinuria, microscopic hematuria
B/L hydronephrosis by CTAP
Small left renal perinephric hematoma
Sepsis
Hypotension, requiring pressor support
Acute anemia
pulmonary hypertension, WHO Group 1 associated with crest, on revatio
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
chronic heart failure with improved EF
recovered nonischemic cardiomyopathy
CKD stage 3A
hypertension
hyperlipidemia
GERD
osteoarthritis
history of bilateral PE status post IVC filter in 2007
RHC 03/26/23 showed Severe pulmonary hypertension with minimally elevated left-sided filling pressures
ECHO 08/04/22: EF 50%, mild LVH with septal flattening, MAC, mild to moderate MR, mildly dilated left atrium, aortic sclerosis, mild AR, dilated and hypokinetic RV with RV H, dilated right atrium, moderate to severe TR, severe pulmonary hypertension,
PAP 7984 mmHg, mildly dilated pulmonary artery with mild to moderate pulmonary regurgitation
Plan:
-Patient presented 05/25/2023 for L renal biopsy and was noted in PACU to have R hydronephrosis with subsequent decompensation with evidence of sepsis
-E coli bacteremia on IV antibiotics being followed by ID
-Repeat BC 05/27/23 pending
-Currently requiring pressor support with neosynephrine, attempting to wean off - Cardiology consulted for eval as OP revatio placed on hold
-Started on Midodrine 5 mg TID for ongoing hypotension
-Ideally would continue Revatio, however hypotension precludes at this time. Eventual restart at BP improves. Continue OP Letairis.
-Restarted 05/28/23 on reduced dose Toprol 12.5mg for tachycardia. Holding OP Toprol due to hypotension
-Wean pressors as able
-Lactic acidosis resolved, but has developed ALTA. Agree with holding lasix for now and monitoring Cr.
-Acute on chronic anemia, Hgb dropped from 9.7 now 7.8. Given hypotension, tachycardia and need for pressors may benefit from blood transfusion
Progress Note - Museum Assistant
Subjective
Date of Service: May 28, 2023
Patient seen and examined. Patient sitting up in chair. Patient reports in the last 24 hours she is feeling considerably better. She is still tired and has some shortness of breath.
Objective
Labs:
05/28/23 03:23
05/28/23 03:23
Labs
Hgb 7.8 g/dL (12.0-16.0) L 05/28/23 03:23
Hct 23.1 % (37.0-47.0) L 05/28/23 03:23
Plt Count 119 10^3/uL (130-400) L D 05/28/23 03:23
PT 14.5 Sec (11.4-14.6) 05/25/23 08:50
INR 1.15 05/25/23 08:50
Sodium 136 mmol/L (135-145) 05/28/23 03:23
Potassium 4.0 mmol/L (3.5-5.1) 05/28/23 03:23
BUN 30 mg/dl (7-17) H 05/28/23 03:23
Creatinine 1.2 mg/dL (0.6-1.0) H 05/28/23 03:23
Glucose 94 mg/dl (70-99) 05/28/23 03:23
Vital Signs and I&O:
Vital Signs
Temp Pulse Resp BP Pulse Ox
98.2 F 100 16 102/74 98
05/28/23 07:42 05/28/23 07:40 05/28/23 06:00 05/28/23 07:41 05/28/23 08:00
Vital Signs
Temp Pulse Resp BP Pulse Ox
98.2 F 100 16 102/74 98
05/28/23 07:42 05/28/23 07:40 05/28/23 06:00 05/28/23 07:41 05/28/23 08:00
Intake & Output
05/26/23 05/27/23 05/28/23 05/29/23
06:59 06:59 06:59 06:59
Intake Total 630 / 630 600 / 600 390 / 390 1200 / 1200
Output Total 725 / 725 2175 / 2175
Balance 630 / 630 -125 / -125 -1785 / -1785 1200 / 1200
Physical Exam
Physical Exam
GEN: No distress, awake, Ox3, sitting up in chair
HEENT: supple, anicteric, mmm
LUNGS: CTA, no wheezes/rales wearing oxygen 2 L per nasal cannula
CV: Reg, S1/S2, 1/6 syst LSB, no murmur
ABD: soft, BS+, NT/ND
EXT: No edema, clubbing or cyanosis
NEURO: Gross non-focal
SKIN: No rash, warm, pink
[2023-05-28] MEDS: ANCEF 10 IV ×2 (10:11→17:11)
--- NOTE | 2023-05-28 12:56 | W.PN.NEPH.PH ---
Today's Communication / Plan
-
see plan
Assessment/Plan
-
Assessment:
gross hematuria
c/f bleeding s/p kidney biopsy
Urosepsis of Klebsiella type
23g proteinuria
c/f lupus/scleroderma
Bilateral hydronephrosis
ALTA
Acute blood loss anemia from hematuria
Chronic HFpEF
Severe pulmonary hypertension
Mild to moderate mitral regurgitation
Mild to moderate pulmonary regurgitation
Essential hypertension
Hyperlipidemia
Hyponatremia, mild
GERD
Osteoarthritis
-CT report reviewed:
Small left renal perinephric hematoma related to prior biopsy procedure. Small amount of increased attenuation in the visible distal left ureter likely related to blood products from prior biopsy.
Bilateral renal cortical thinning. Chronic bilateral hydronephrosis and hydroureter, with severe right hydronephrosis and moderate to severe left hydronephrosis. Slightly worse as compared with prior study.
Bladder evaluation significantly limited by streak artifacts. There is some wall thickening/trabeculation suggesting outlet obstruction or neurogenic bladder. Probable component of bladder prolapse, not as well-seen as on the prior study.
Plan:
UTI, E coli bacteremia-abx per ID
patel per , h/o neurogenic bladder
ALTA from sepsis-improving now
hb slow decrease likely dilutional from IVF and mild perinephric hematoma
expect to see improvement with PRBC
now off pressors, midodrine added keep MAP>65, holding all antihTN meds still
wean O2 as possible, h/o pulm HTN
likely resume lasix soon as hemodynamics stabilizes
noted wt is up from baseline
d/w nursing
Nephrotic proteinuria:biopsy prelim shows minimal change disease, no autoimmune but lot of global sclerosis-wait for full report , once she recovers from infection will eval initiation of steroids when ok with ID and
this can be done as out pt
d/w pt in detail and answered questions
-
-
Date of Service: May 28, 2023
CC / HPI / ROS
-
Chief Complaint:
Macrohematuria status post renal biopsy
History of Present Illness:
Urosepsis , E coli bacteremia and urine
Hemodynamically labile , off pressots
Hemoglobin down 7.8, no hematuria
ALTA -cr improving to 1.2
Review of Systems:
patel with dark urine
No chest pain or shortness of breath although on 6 L nasal cannula, sat difficult to obtain
no fevers noted
no chest pain or vomiting or sob at rest
Labs
-
Labs:
WBC 9.6 10^3/uL (4.8-10.8) 05/28/23 03:23
RBC 2.50 10^6/uL (4.20-5.40) L 05/28/23 03:23
Hgb 7.8 g/dL (12.0-16.0) L 05/28/23 03:23
Hct 23.1 % (37.0-47.0) L 05/28/23 03:23
Plt Count 119 10^3/uL (130-400) L D 05/28/23 03:23
Sodium 136 mmol/L (135-145) 05/28/23 03:23
Potassium 4.0 mmol/L (3.5-5.1) 05/28/23 03:23
Chloride 110 mmol/L (98-107) H 05/28/23 03:23
Carbon Dioxide 19 mmol/L (22-30) L 05/28/23 03:23
BUN 30 mg/dl (7-17) H 05/28/23 03:23
Creatinine 1.2 mg/dL (0.6-1.0) H 05/28/23 03:23
eGFR 48.39 05/28/23 03:23
Glucose 94 mg/dl (70-99) 05/28/23 03:23
Calcium 8.3 mg/dl (8.4-10.2) L 05/28/23 03:23
Albumin 2.7 g/dl (3.5-5.0) L 05/26/23 04:55
Physical Exam
-
Vital Signs:
Vital Signs
Temp Pulse Resp BP Pulse Ox
98.4 F 88 24 83/69 98
05/28/23 11:46 05/28/23 11:36 05/28/23 11:36 05/28/23 11:36 05/28/23 08:00
Cardiovascular:: Regular rate and rhythm
Respiratory:: Bilateral: CTA
Lung Excursion:: Normal
Abdomen:: Nontender and Soft
Extremity Edema:: None: Bilateral:
Patel Catheter: Yes
--- NOTE | 2023-05-28 14:24 | CM ---
Patient plan is for discharge home when medically appropriate, Patient currently on O2 and has a patel. Patient for possible transition to PO antibiotics tomorrow per ID. Patient for PT/OT assessment but currently receiving blood. Patient
considering VN for supports at discharge pending needs. CM will continue to follow for discharge planning needs.
Plan; home with VN vs no needs. Watch for home O2 needs, possible patel care
--- NOTE | 2023-05-28 15:49 | W.PN.URO.CBU ---
Today's Communication / Plan
-
Continue abx
Trend HGB
Maintain patel at discharge. Okay to exchange patel per ID recs
Assessment / Plan
-
73F with proteinuria, scleroderma with lupus overlap, currently admitted for observation after left renal biopsy
Urology consulted for severe R hydronephrosis noted during procedure and hematuria
History of pelvic organ prolapse s/p surgery with Dr. Johnson 08/2022, currently undergoing PTNS for urge urinary incontinence
Developed sepsis with E coli bacteremia 05/25
- Suspect sepsis is from chronic colonization of upper urinary tracts due to ureteral reflux, with renal biopsy introducing bacteria to renal parenchyma
- Continue abx with treatment course per ID
- Small perinephric hematoma on CT which does not appear to represent significant bleeding.
- Trend HGB
- CTAP showed bilateral hydroureteronephrosis is likely due to chronic neurogenic bladder with vesicoureteral reflux. She has had workup for voiding dysfunction and detrusor overactivity, but may need further outpatient workup with repeat
videourodynamics to evaluate this. Hydronephrosis is similar and stable from prior CT last year. No acute obstruction.
- Patel in place with minimal residual hematuria
- Patient has tried CIC in the past and was not able to self catheterize. Recommend discharge home with patel pending further workup
- Okay to exchange patel catheter per ID recs
- Outpatient follow up with Dr. Johnson for further neurogenic bladder eval
Diagnosis
-
Date of Service: May 28, 2023
-
Patient Diagnosis:
Neurogenic bladder
Hydronephrosis
Hematuria s/p renal biopsy
Septic UTI with bacteremia
Post Op Day:
Subjective
-
Feeling better today
More energy
toleratidng patel
Objective
-
Vital Signs
Temp Pulse Resp BP Pulse Ox
97.6 F 102 20 100/65 98
05/28/23 15:21 05/28/23 14:15 05/28/23 14:15 05/28/23 14:15 05/28/23 08:00
Intake and Output
05/27/23 05/28/23 05/29/23
06:59 06:59 06:59
Intake Total 600 / 600 390 / 390 1450 / 1450
Output Total 725 / 725 2175 / 2175 450 / 450
Balance -125 / -125 -1785 / -1785 1000 / 1000
Intake:
Oral fluids 240 / 240 240 / 240
IV fluids (Total) 500 / 500 960 / 960
IV piggybacks 100 / 100 150 / 150
Blood Product Amount Infused ( 250 / 250
mL)
Packed Rbc Leukoreduced Unit 250 / 250
[id number]
Output:
Urine, Patel 725 / 725 2175 / 2175 450 / 450
True urine output from hand 0 / 0
irrigation
Other:
Number of approximated SMALL 2
amounts of urine
Number of approximated MODERATE 3
amounts of urine
Laboratory Results
05/28/23 03:23
05/28/23 03:23
Physical Exam
-
General - well developed, well nourished, no acute distress
Chest - clear bilaterally
Abdomen - soft, non-tender
Patel in place, yellow urine with sediment
Skin - warm & dry with no rash
Neuro - AOx3, no motor deficits
Extremities - no clubbing, no cyanosis, no edema
[2023-05-28] MEDS: NON-FORMULARY ITEM 1 MG PO (15:52)
[2023-05-28] MEDS: PROTONIX 40 MG PO (17:12)
[2023-05-28] MEDS: LIPITOR 10 MG PO (21:26)
[2023-05-29] VITALS (39 sets, daily range): BP systolic 73–114; BP diastolic 44–71; PULSE 94–120; O2SAT 98; BMI 25.9
[2023-05-29] MEDS: NEO-SYNEPHRINE IV (02:05)
[2023-05-29] MEDS: ProAmatine 10 MG PO (02:20)
--- NOTE | 2023-05-29 02:30 | PTCARENOTE ---
Pt's BP, MAP less than 65 after multiple checks changed BP cuff and BP still low skin warm and dry and Temp 98.8 PO, HR 104 Sinus tachy. HAND PRESSER notified and Midodrine 10mg ordered and given. Will monitor BP. Pt has no complaints.
--- NOTE | 2023-05-29 03:03 | PTCARENOTE ---
Pt's BP has improved since receiving Midodrine. MAP is 74 and HR is 95. Savage is draining cloudy yellow urine.
[2023-05-29 05:14] LABS: Hematocrit 27.7 % (37.0-47.0); Hemoglobin 8.7 g/dL (12.0-16.0); Mean Corp Hgb Conc. 31.4 g/dL (33.0-37.0); Mean Corpuscular Hgb 29.4 pg (27.0-31.0); Mean Corpuscular Volume 93.6 fL (81.0-99.0); Platelet Count 113 10^3/uL (130-400); Red Blood Cell Count 2.96 10^6/uL (4.20-5.40); Red Cell Dist. Width 15.1 % (11.5-14.5)
[2023-05-29 06:25] LABS: Blood Urea Nitrogen 27 mg/dl (7-17); Calcium 8.5 mg/dl (8.4-10.2); Carbon Dioxide 21 mmol/L (22-30); Chloride 108 mmol/L (98-107); Estimated Creatinine Clearance 36 ml/min; Glucose 86 mg/dl (70-99); Potassium 4.4 mmol/L (3.5-5.1); Sodium 135 mmol/L (135-145); eGFR 43.96
--- NOTE | 2023-05-29 06:25 | W.PN.HOSP.TC ---
Today's Communication/Plan
-
dc planning in 1-2 days
Assessment / Plan
Assessment / Plan
Physical Exam
General: Well Developed, Well Nourished and No Apparent Distress
HEENT: Normocephalic, dry mucous membranes and Atraumatic
Respiratory: limited, no rales or wheezes.
Cardiac: S1/S2
GI: Soft, Non Tender, Non Distended and Normal Bowel Sounds
Rectal: Deferred by Provider
Musculoskeletal: No Clubbing, No Cyanosis and No Edema
Skin: No Rash
Neuro: Nonfocal/grossly intact
Psych: no agitation, pleasant.
#Sepsis POA / severe sepsis evolved into septic shock
Bacteremia With E Coli, oliver- sensitive
Started on broad spectrum IV Abx, Cefepime 2 gm BID and Vancomycin , changed to meropenem on 05/26
Reculture blood 05/26: no growth
Stopped IVF & Gilbert-synephrine
On Oral Midodrine 5 mg TID, add PRN dose
Savage catheter to stay upon dc per urology
Afebrile over night, WBC normal
Known to have lupus/ scleroderma
Appreciate ID, urology and nephrology input
# ALTA due to sepsis/ hypotension
s/p IVF
Creatinine down to 1.3
Maintain Savage
Avoid nephrotoxic medications and renally adjust doses.
# Acute blood loss anemia from hematuria
Underlying also anemia of chronic disease
Low Iron level, c/w oral Iron.
s/p one unit of RBCs 05/27
Consent signed
# Hematuria after left renal biopsy
Creatinine 1.3, hematuria is resolved. HGB level stable
-Postprocedure ultrasound showed small subcapsular hematoma which was not expanding. D/w IR and urology doctors.
c/w pain control, manual irrigation of Savage ( no clots per nursing staff), no need for it as urine is clear now
Pain control with Tylenol, low dose Dilaudid.
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
-Await results of kidney biopsy, was sent to [facility].
Primary quilt stuffer is Dr. Guan
# Recently diagnosed scleroderma/lupus overlap
#Chronic HFpEF
-Echo from last year showing EF of 50%
-Holding Lasix , s/p IVF
- Would c/w metoprolol, low dose to avoid tachycardia
Primary refrigeration supervisor Dr Diann Bledsoe
Last cath , right side on 03/26/23 showed Severe pulmonary hypertension with minimally elevated left-sided filling pressures
Appreciate cardiology input
#Mild to moderate mitral regurgitation
#Severe pulmonary hypertension
Moderate to severe tricuspid regurgitation
- resume Ambrisentan
- Held sildenafil due to hypotension
#Mild to moderate pulmonary regurgitation
#Essential hypertension
Holding BP medications while recovering from sepsis.
Hyperlipidemia
-Continue statin
# Hyponatremia, mild, resolved.
GERD
Poor appetite due to sepsis.
PRN Compazine
-Continue PPI
Osteoarthritis
Full code
DVT prophylaxis�SCDs, Holding SQ heparin due to renal hematoma and Hematuria.
Cardiac diet
PT/OT
Total time spent to see the patient, examine the patient on the floor, review data and lab results, discuss treatment plan with patient, family, nursing staff around 59 minutes.
Anticipated Discharge: 24 - 48 hours
Subjective/Interval History
-
Date of Service: May 29, 2023
No events over night. Was given one time dose of midodrine at 2 am due to low Bp.
No fevers
No pain issues
Objective Data
-
Labs:
Laboratory Results
05/29/23
04:40
WBC 7.0
Hgb 8.7 L
Hct 27.7 L
Plt Count 113 L
Sodium Pending
Potassium Pending
Chloride Pending
Carbon Dioxide Pending
BUN Pending
Creatinine Pending
Glucose Pending
Calcium Pending
Vital Signs:
Vital Signs
Temp Pulse Resp BP Pulse Ox
98.6 F 92 21 113/64 97
05/29/23 03:41 05/29/23 06:00 05/29/23 06:00 05/29/23 06:00 05/29/23 06:00
I&O
05/27/23 05/28/23 05/29/23
06:59 06:59 06:59
Intake Total 600 / 600 390 / 390 1690 / 1690
Output Total 725 / 725 2175 / 2175 1850 / 1850
Balance -125 / -125 -1785 / -1785 -160 / -160
[2023-05-29] MEDS: ProAmatine 5 MG PO ×3 (09:03→17:37)
[2023-05-29] MEDS: TOPROL XL 12.5 MG PO (09:03)
[2023-05-29] MEDS: KEFLEX 500 MG PO ×4 (09:03→22:03)
[2023-05-29] MEDS: FEOSOL 325 MG PO (09:03)
[2023-05-29] MEDS: NON-FORMULARY ITEM 5 MG PO (09:05)
--- NOTE | 2023-05-29 09:32 | W.PN.CARDCBS ---
Today's Communication / Plan
-
She is doing much better. If blood pressures remain stable over the next 24 hours, we can resume her revatio on Wednesday.
Impression / Plan
-
Primary Edi Specialist: Dr. Obrien/Dr. Diann Bledsoe
Assessment:
Presentation for L renal biopsy for proteinuria, microscopic hematuria
B/L hydronephrosis by CTAP
Small left renal perinephric hematoma
Sepsis
Hypotension, requiring pressor support
Acute anemia
pulmonary hypertension, WHO Group 1 associated with crest, on revatio
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
chronic heart failure with improved EF
recovered nonischemic cardiomyopathy
CKD stage 3A
hypertension
hyperlipidemia
GERD
osteoarthritis
history of bilateral PE status post IVC filter in 2007
RHC 03/26/23 showed Severe pulmonary hypertension with minimally elevated left-sided filling pressures
ECHO 08/04/22: EF 50%, mild LVH with septal flattening, MAC, mild to moderate MR, mildly dilated left atrium, aortic sclerosis, mild AR, dilated and hypokinetic RV with RV H, dilated right atrium, moderate to severe TR, severe pulmonary hypertension,
PAP 7984 mmHg, mildly dilated pulmonary artery with mild to moderate pulmonary regurgitation
Plan:
Sepsis requiring pressor support with neosynephrine - Cardiology consulted for eval as OP revatio (pulmonary hypertension, WHO Group 1 associated with crest) placed on hold
-Patient presented 05/25/2023 for L renal biopsy and was noted in PACU to have R hydronephrosis with subsequent decompensation with evidence of sepsis
-E coli bacteremia on IV antibiotics being followed by ID
-Repeat BC 05/27/23 pending
-Pressor support with Gilbert-Synephrine earlier in this hospital stay, weaned off this morning May 28.
-Remains on Midodrine 5 mg TID (started this hospital stay) for ongoing hypotension
Will continue to follow blood pressures now that Gilbert-Synephrine off as of this morning and consider resumption of Revatio over the next 24 to 48 hours. Continue OP Letairis.
-Restarted 05/28/23 on reduced dose Toprol 12.5mg for tachycardia. Holding OP Toprol due to hypotension
-Has developed ALTA. Creatinine has improved over the past 24-48 hours but not yet back to baseline.
Weight is up 11 pounds this hospital stay so we will need to eventually resume Lasix, monitoring Cr.
-Acute on chronic anemia
Progress Note - Edi Specialist
Subjective
Date of Service: May 29, 2023
She tells me she feels much better this morning, better appetite and more energetic.
Objective
Labs:
05/29/23 04:40
05/29/23 04:40
Labs
Hgb 8.7 g/dL (12.0-16.0) L 05/29/23 04:40
Hct 27.7 % (37.0-47.0) L 05/29/23 04:40
Plt Count 113 10^3/uL (130-400) L 05/29/23 04:40
PT 14.5 Sec (11.4-14.6) 05/25/23 08:50
INR 1.15 05/25/23 08:50
Sodium 135 mmol/L (135-145) 05/29/23 04:40
Potassium 4.4 mmol/L (3.5-5.1) 05/29/23 04:40
BUN 27 mg/dl (7-17) H 05/29/23 04:40
Creatinine 1.3 mg/dL (0.6-1.0) H 05/29/23 04:40
Glucose 86 mg/dl (70-99) 05/29/23 04:40
Vital Signs and I&O:
Vital Signs
Temp Pulse Resp BP Pulse Ox
98.3 F 99 21 96/56 97
05/29/23 07:50 05/29/23 09:03 05/29/23 06:00 04/06/24 09:03 05/29/23 06:00
Vital Signs
Temp Pulse Resp BP Pulse Ox
98.3 F 99 21 96/56 97
05/29/23 07:50 05/29/23 09:03 05/29/23 06:00 05/29/23 09:03 05/29/23 06:00
Intake & Output
05/27/23 05/28/23 05/29/23 05/30/23
06:59 06:59 06:59 06:59
Intake Total 600 / 600 390 / 390 1690 / 1690 400 / 400
Output Total 725 / 725 2175 / 2175 1850 / 1850
Balance -125 / -125 -1785 / -1785 -160 / -160 400 / 400
Physical Exam
Physical Exam
Sitting in chair, appears comfortable, smiling
Regular rate and rhythm with normal S1 and S2, no S3 no S4. There is grade 1/6 apical holosystolic murmur no rubs
Lungs are clear to auscultation bilaterally without wheezes rales or rhonchi
Extremities show no clubbing cyanosis or edema.
Neurologically nonfocal.
--- NOTE | 2023-05-29 11:23 | W.PN.URO.CBU ---
Today's Communication / Plan
-
Stable urologically
Will discharge home with Patel
Assessment / Plan
-
73F with proteinuria, scleroderma with lupus overlap, currently admitted for observation after left renal biopsy
Urology consulted for severe R hydronephrosis noted during procedure and hematuria
History of pelvic organ prolapse s/p surgery with Dr. Johnson 08/2022, currently undergoing PTNS for urge urinary incontinence
Developed sepsis with E coli bacteremia 05/25
- Suspect sepsis is from chronic colonization of upper urinary tracts due to ureteral reflux, with renal biopsy introducing bacteria to renal parenchyma
- Continue abx with treatment course per ID
- Small perinephric hematoma on CT which does not appear to represent significant bleeding.
- Trend HGB
- CTAP showed bilateral hydroureteronephrosis is likely due to chronic neurogenic bladder with vesicoureteral reflux. She has had workup for voiding dysfunction and detrusor overactivity, but may need further outpatient workup with repeat
videourodynamics to evaluate this. Hydronephrosis is similar and stable from prior CT last year. No acute obstruction.
- Patel in place with minimal residual hematuria
- Patient has tried CIC in the past and was not able to self catheterize. Recommend discharge home with patel pending further workup
- Okay to exchange patel catheter per ID recs
- Outpatient follow up with Dr. Johnson for further neurogenic bladder eval
Diagnosis
-
Date of Service: May 29, 2023
-
Patient Diagnosis:
Neurogenic bladder
Hydronephrosis
Hematuria s/p renal biopsy
Septic UTI with bacteremia: oliver-sensitive E. coli in blood; E. coli and Morganella in urine
Subjective
-
Feels much better
No catheter bother
Objective
-
Vital Signs
Temp Pulse Resp BP Pulse Ox
98.3 F 100 21 102/54 95
05/29/23 07:50 05/29/23 10:00 05/29/23 10:00 05/29/23 10:00 05/29/23 10:00
Intake and Output
05/28/23 05/29/23 05/30/23
06:59 06:59 06:59
Intake Total 390 / 390 1690 / 1690 400 / 400
Output Total 2175 / 2175 1850 / 1850
Balance -1785 / -1785 -160 / -160 400 / 400
Intake:
Oral fluids 240 / 240 480 / 480 400 / 400
IV fluids (Total) 960 / 960
IV piggybacks 150 / 150
Blood Product Amount Infused ( 250 / 250
mL)
Packed Rbc Leukoreduced Unit 250 / 250
[id number]
Output:
Urine, Patel 2175 / 2175 1850 / 1850
Laboratory Results
05/29/23 04:40
05/29/23 04:40
Review of Systems
-
Constitutional: No Symptoms
Respiratory: No Symptoms
Cardiac: No Symptoms
Abdomen/GI: No Symptoms
Neurological: No Symptoms
Physical Exam
-
General - well developed, well nourished, no acute distress
Abdomen - soft, non-tender
Patel draining moderately cloudy urine
--- NOTE | 2023-05-29 13:51 | PTCARENOTE ---
Patient AAOx3. Tolerating being OOB to chair. On RA, sats 94%. VSS, BPs soft. Savage draining cloudy yellow urine. NSR on monitor. Patient with no complaints. Continuing to closely monitor.
--- NOTE | 2023-05-29 16:29 | W.PN.NEPH.PH ---
Today's Communication / Plan
-
resume lasix
Assessment/Plan
-
Assessment:
gross hematuria
c/f bleeding s/p kidney biopsy
Urosepsis of Klebsiella type
23g proteinuria
c/f lupus/scleroderma
Bilateral hydronephrosis
ALTA
Acute blood loss anemia from hematuria
Chronic HFpEF
Severe pulmonary hypertension
Mild to moderate mitral regurgitation
Mild to moderate pulmonary regurgitation
Essential hypertension
Hyperlipidemia
Hyponatremia, mild
GERD
Osteoarthritis
-CT report reviewed:
Small left renal perinephric hematoma related to prior biopsy procedure. Small amount of increased attenuation in the visible distal left ureter likely related to blood products from prior biopsy.
Bilateral renal cortical thinning. Chronic bilateral hydronephrosis and hydroureter, with severe right hydronephrosis and moderate to severe left hydronephrosis. Slightly worse as compared with prior study.
Bladder evaluation significantly limited by streak artifacts. There is some wall thickening/trabeculation suggesting outlet obstruction or neurogenic bladder. Probable component of bladder prolapse, not as well-seen as on the prior study.
Plan:
UTI, E coli bacteremia-abx per ID
patel per , h/o neurogenic bladder
ALTA from sepsis-improving now cr 1.3 -seem baseline
hb better post prbc, had mild perinephric hematoma
BP remains soft on schedule midodrine, holding all antihTN meds still , check cortisol level
on RA today with h/o pulm HTN
wt increasing, resume lasix today
d/w pt in detail
Nephrotic proteinuria:biopsy prelim shows minimal change disease, no autoimmune but lot of global sclerosis-wait for full report , once she recovers from infection will eval initiation of steroids when ok with ID and
this can be done as out pt
-
-
Date of Service: May 29, 2023
CC / HPI / ROS
-
Chief Complaint:
Macrohematuria status post renal biopsy
History of Present Illness:
Urosepsis , E coli bacteremia and urine
Hemodynamically soft on midodrine
Hemoglobin better at 8.7 s/p PRBC
ALTA -cr up at 1.3
Review of Systems:
patel with clear urine
No chest pain or shortness of breath although
on RA today
no fevers noted
no chest pain or vomiting or sob at rest
Labs
-
Labs:
WBC 7.0 10^3/uL (4.8-10.8) 05/29/23 04:40
RBC 2.96 10^6/uL (4.20-5.40) L 05/29/23 04:40
Hgb 8.7 g/dL (12.0-16.0) L 05/29/23 04:40
Hct 27.7 % (37.0-47.0) L 05/29/23 04:40
Plt Count 113 10^3/uL (130-400) L 05/29/23 04:40
Sodium 135 mmol/L (135-145) 05/29/23 04:40
Potassium 4.4 mmol/L (3.5-5.1) 04 04:40
Chloride 108 mmol/L (98-107) H 05/29/23 04:40
Carbon Dioxide 21 mmol/L (22-30) L 05/29/23 04:40
BUN 27 mg/dl (7-17) H 05/29/23 04:40
Creatinine 1.3 mg/dL (0.6-1.0) H 05/29/23 04:40
eGFR 43.96 05/29/23 04:40
Glucose 86 mg/dl (70-99) 05/29/23 04:40
Calcium 8.5 mg/dl (8.4-10.2) 05/29/23 04:40
Albumin 2.7 g/dl (3.5-5.0) L 0403/24 04:55
Physical Exam
-
Vital Signs:
Vital Signs
Temp Pulse Resp BP Pulse Ox
98.7 F 86 22 97/54 95
05/29/23 15:51 05/29/23 13:05 05/29/23 13:00 05/29/23 13:05 05/29/23 12:00
Cardiovascular:: Regular rate and rhythm
Respiratory:: Bilateral: Rales (fine at bases)
Lung Excursion:: Normal
Abdomen:: Nontender and Soft
Extremity Edema:: None: Bilateral: (trace)
Patel Catheter: Yes
[2023-05-29] MEDS: LASIX 40 MG PO (17:36)
[2023-05-29] MEDS: PROTONIX 40 MG PO (17:38)
[2023-05-29] MEDS: LIPITOR 10 MG PO (22:04)
[2023-05-30] VITALS (17 sets, daily range): BP systolic 83–113; BP diastolic 45–70; PULSE 107; O2SAT 96; BMI 25.3
--- NOTE | 2023-05-30 04:09 | PTCARENOTE ---
Pt has been alert and oriented and cooperative without complaints throughout the night. Her foly catheter has drained a large amount of cloudy urine 1950 so far this shift. Monitor has been NSR 80-90's and O2 sat has been 96% on 2 liters NC when
she sleeps.
--- NOTE | 2023-05-30 06:28 | W.PN.HOSP.TC ---
Addendum entered and electronically signed by Rock Cooper MD 05/30/23 15:53:
Addendum
d/w Dr Padron
No need to treat Morganella, c/w current regimen.
End
Addendum entered and electronically signed by Rock Cooper MD 05/30/23 15:13:
Addendum
Urine culture finalized with positive Morganella Morganii also. Seems resistant to cephalexin
Will add ciprofloxacin, renally adjust the dose
EKG in a.m.
Will update ID service on Wednesday
End
Original Note:
Today's Communication/Plan
-
.
Assessment / Plan
Assessment / Plan
Physical Exam
General: Well Developed, Well Nourished and No Apparent Distress
HEENT: Normocephalic, dry mucous membranes and Atraumatic
Respiratory: limited, no rales or wheezes.
Cardiac: S1/S2
GI: Soft, Non Tender, Non Distended and Normal Bowel Sounds
Rectal: Deferred by Provider
Musculoskeletal: No Clubbing, No Cyanosis and No Edema
Skin: No Rash
Neuro: Nonfocal/grossly intact
Psych: no agitation, pleasant.
#Sepsis POA / severe sepsis evolved into septic shock
Bacteremia With E Coli, oliver- sensitive
Started on broad spectrum IV Abx, Cefepime 2 gm BID and Vancomycin , changed to meropenem on 05/26
Reculture blood 05/26: no growth
Stopped IVF & Gilbert-synephrine
Stopped Oral Midodrine 5 mg TID, PRN dose. d/w her band booker. SBP runs normally around 90s.
Savage catheter to stay upon dc per urology
Afebrile over night, WBC normal
Known to have lupus/ scleroderma
Appreciate ID, urology and nephrology input
# ALTA due to sepsis/ hypotension
s/p IVF
Creatinine down to 1.2
Maintain Savage
Avoid nephrotoxic medications and renally adjust doses.
# Acute blood loss anemia from hematuria
Underlying also anemia of chronic disease
Low Iron level, c/w oral Iron.
s/p one unit of RBCs 4/5
Consent signed
# Hematuria after left renal biopsy
Creatinine 1.2, hematuria is resolved. Good urine out put. HGB level stable. Outpatient follow up with Dr. Johnson/ Dr Medrano for further neurogenic bladder evaluation
-Postprocedure ultrasound showed small subcapsular hematoma which was not expanding. D/w IR and urology doctors.
c/w pain control, manual irrigation of Savage ( no clots per nursing staff), no need for it as urine is clear now
Pain control with Tylenol, low dose Dilaudid.
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
-Await results of kidney biopsy, was sent to [facility] [employer] [facility].
Primary contract programmer is Dr. Guan
# Recently diagnosed scleroderma/lupus overlap
#Chronic HFpEF
-Echo from last year showing EF of 50%
-Holding Lasix , s/p IVF
- Would c/w metoprolol, low dose to avoid tachycardia
Primary band booker Dr Diann Bledsoe
Last cath , right side on 03/26/23 showed Severe pulmonary hypertension with minimally elevated left-sided filling pressures
Appreciate cardiology input
#Mild to moderate mitral regurgitation
#Severe pulmonary hypertension
Moderate to severe tricuspid regurgitation
- resume Ambrisentan
- Held sildenafil due to hypotension
#Mild to moderate pulmonary regurgitation
#Essential hypertension
Back on BB. can resume further medications in OP setting.
Hyperlipidemia
-Continue statin
# Hyponatremia, mild, resolved.
GERD
Poor appetite due to sepsis.
PRN Compazine
-Continue PPI
Osteoarthritis
Full code
DVT prophylaxis�SCDs, Holding SQ heparin due to renal hematoma and Hematuria.
Cardiac diet
PT/OT
Total time spent to see the patient, examine the patient on the floor, review data and lab results, discuss treatment plan with patient, family, nursing staff around 57 minutes.
Anticipated Discharge: Within 24 hours
Subjective/Interval History
-
Date of Service: May 30, 2023
Doing well
No sob
No chest pain
no abd pain
Objective Data
-
Labs:
Laboratory Results
05/30/23
05:23
Sodium Pending
Potassium Pending
Chloride Pending
Carbon Dioxide Pending
BUN Pending
Creatinine Pending
Glucose Pending
Calcium Pending
Vital Signs:
Vital Signs
Temp Pulse Resp BP Pulse Ox
99.3 F 88 21 113/60 96
05/30/23 03:40 05/30/23 06:00 05/30/23 06:00 05/30/23 06:00 05/30/23 06:00
I&O
05/28/23 05/29/23 05/30/23
06:59 06:59 06:59
Intake Total 390 / 390 1690 / 1690 1620 / 1620
Output Total 2175 / 2175 1850 / 1850 3450 / 3450
Balance -1785 / -1785 -160 / -160 -1830 / -1830
[2023-05-30 06:36] LABS: Blood Urea Nitrogen 27 mg/dl (7-17); Calcium 8.8 mg/dl (8.4-10.2); Carbon Dioxide 26 mmol/L (22-30); Chloride 106 mmol/L (98-107); Estimated Creatinine Clearance 39 ml/min; Glucose 87 mg/dl (70-99); Potassium 4.1 mmol/L (3.5-5.1); Sodium 136 mmol/L (135-145); eGFR 48.39
[2023-05-30 07:16] LABS: Cortisol, Random 18.1 ug/dl
[2023-05-30] MEDS: FEOSOL 325 MG PO (08:45)
[2023-05-30] MEDS: KEFLEX 500 MG PO ×4 (08:46→21:00)
[2023-05-30] MEDS: ProAmatine PO (08:46)
[2023-05-30] MEDS: NON-FORMULARY ITEM 5 MG PO (08:46)
[2023-05-30] MEDS: TOPROL XL 12.5 MG PO (08:46)
--- NOTE | 2023-05-30 09:54 | W.PN.CARDCBS ---
Today's Communication / Plan
-
Resuming sildenafil as well as outpatient Lasix dosing
Impression / Plan
-
Primary Asp Web Developer: Dr. Obrien/Dr. Diann Bledsoe
Assessment:
Presentation for L renal biopsy for proteinuria, microscopic hematuria
B/L hydronephrosis by CTAP
Small left renal perinephric hematoma
Sepsis
Hypotension, requiring pressor support
Acute anemia
pulmonary hypertension, WHO Group 1 associated with crest, on revatio
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
chronic heart failure with improved EF
recovered nonischemic cardiomyopathy
CKD stage 3A
hypertension
hyperlipidemia
GERD
osteoarthritis
history of bilateral PE status post IVC filter in 2007
RHC 03/26/23 showed Severe pulmonary hypertension with minimally elevated left-sided filling pressures
ECHO 08/04/22: EF 50%, mild LVH with septal flattening, MAC, mild to moderate MR, mildly dilated left atrium, aortic sclerosis, mild AR, dilated and hypokinetic RV with RV H, dilated right atrium, moderate to severe TR, severe pulmonary hypertension,
PAP 7984 mmHg, mildly dilated pulmonary artery with mild to moderate pulmonary regurgitation
Plan:
Sepsis requiring pressor support with neosynephrine - Cardiology consulted for eval as OP revatio (pulmonary hypertension, WHO Group 1 associated with crest) placed on hold
-Patient presented 05/25/2023 for L renal biopsy and was noted in PACU to have R hydronephrosis with subsequent decompensation with evidence of sepsis
-E coli bacteremia on IV antibiotics being followed by ID
-Repeat BC 05/27/23 pending
-Pressor support with Gilbert-Synephrine earlier in this hospital stay, weaned off 05/27, Midodrine stopped 05/28.
Blood pressure improved and stabilized off of pressors and off of midodrine
Will take this opportunity to resume sildenafil (Rivatio) which she requires for treatment of her pulmonary hypertension.
-Primary pulmonary hypertension WHO Group 1 associated with crest
Resuming sildenafil 20 mg 3 times daily (Revatio )05/30/23
Maintain ambrisentan
-As an outpatient had been on Toprol-XL 25 mg daily. This is was held given her recent sepsis and severe hypotension. Toprol-XL resumed at lower dose of 12.5 mg daily. Continue for now
-Has developed ALTA. Creatinine has been improving, down to 1.2 on May 30, 2023.
Weight was up 11 pounds, treated with 40 mg oral lasix 05/28 for volume overload and weight down 3 pounds overnight.
Will get her back on her typical outpatient dosing of Lasix 60 mg daily and need to monitor creatinine closely
-Acute on chronic anemia
Progress Note - Asp Web Developer
Subjective
Date of Service: May 30, 2023
She tells me she feels great today. Much stronger. No chest pain shortness of breath palpitations or dizziness
Total Time Spent with Patient (in minutes): 50
Objective
Labs:
05/29/23 04:40
05/30/23 05:23
Labs
Hgb 8.7 g/dL (12.0-16.0) L 05/29/23 04:40
Hct 27.7 % (37.0-47.0) L 05/29/23 04:40
Plt Count 113 10^3/uL (130-400) L 05/29/23 04:40
PT 14.5 Sec (11.4-14.6) 05/25/23 08:50
INR 1.15 05/25/23 08:50
Sodium 136 mmol/L (135-145) 05/30/23 05:23
Potassium 4.1 mmol/L (3.5-5.1) 05/30/23 05:23
BUN 27 mg/dl (7-17) H 05/30/23 05:23
Creatinine 1.2 mg/dL (0.6-1.0) H 05/30/23 05:23
Glucose 87 mg/dl (70-99) 05/30/23 05:23
Vital Signs and I&O:
Vital Signs
Temp Pulse Resp BP Pulse Ox
97.5 F 100 21 104/54 96
05/30/23 08:36 05/30/23 08:46 05/30/23 06:00 05/30/23 08:46 05/30/23 06:00
Vital Signs
Temp Pulse Resp BP Pulse Ox
97.5 F 100 21 104/54 96
05/30/23 08:36 05/30/23 08:46 05/30/23 06:00 05/30/23 08:46 05/30/23 06:00
Intake & Output
05/28/23 05/29/23 05/30/23 05/31/23
06:59 06:59 06:59 06:59
Intake Total 390 / 390 1690 / 1690 1620 / 1620
Output Total 2175 / 2175 1850 / 1850 3450 / 3450
Balance -1785 / -1785 -160 / -160 -1830 / -1830
Physical Exam
Physical Exam
Sitting in chair appears well no acute distress
Regular rate and rhythm normal S1 and S2, no S3 no S4. Grade 1/6 apical holosystolic murmur no rubs.
Lungs clear to auscultation bilaterally
Extremities no clubbing cyanosis or edema
[2023-05-30] MEDS: REVATIO 20 MG PO ×3 (11:15→21:00)
--- NOTE | 2023-05-30 14:00 | PTCARENOTE ---
Assumed care of pt this am, Alert and oriented x 3. Plan was to monitor vitals and assess for possible discharge. Pt SBP in 90s and pt asymptomatic. Heart rate into 120s with minimal activity or as pt is emotional and upset. Pt denies any dizziness
or lightheadedness. Ambulates with standby assist to BR for large soft brown BM. Savaeg remains patent to cloudy milky yellow output. This is not a new color to urine. Pt will be discharged with Savage. Dr. Cooper to room and discussed discharge plan
with pt and son. Pt is tearful, angry and upset because she has a lot going on her life and responsible for care of her with dementia. Son and daughter are currently helping out but pt tearful that they have to help and she is frustrated. Pt
reports having a good cry session with her daughter and afeels better after letting it out.
--- NOTE | 2023-05-30 17:06 | W.PN.NEPH.PH ---
Today's Communication / Plan
-
lasix
monitor labs and BPs
Assessment/Plan
-
Assessment:
gross hematuria
c/f bleeding s/p kidney biopsy
Urosepsis of Klebsiella type
23g proteinuria
c/f lupus/scleroderma
Bilateral hydronephrosis
ALTA
Acute blood loss anemia from hematuria
Chronic HFpEF
Severe pulmonary hypertension
Mild to moderate mitral regurgitation
Mild to moderate pulmonary regurgitation
Essential hypertension
Hyperlipidemia
Hyponatremia, mild
GERD
Osteoarthritis
-CT report reviewed:
Small left renal perinephric hematoma related to prior biopsy procedure. Small amount of increased attenuation in the visible distal left ureter likely related to blood products from prior biopsy.
Bilateral renal cortical thinning. Chronic bilateral hydronephrosis and hydroureter, with severe right hydronephrosis and moderate to severe left hydronephrosis. Slightly worse as compared with prior study.
Bladder evaluation significantly limited by streak artifacts. There is some wall thickening/trabeculation suggesting outlet obstruction or neurogenic bladder. Probable component of bladder prolapse, not as well-seen as on the prior study.
Plan:
UTI, E coli bacteremia-abx per ID
patel per , h/o neurogenic bladder
ALTA from sepsis-improving now cr 1.2 -seem baseline
hb better post prbc, had mild perinephric hematoma
BP soft off midodrine, holding all antihTN meds still , cortisol level ok
wt is up from baseline with h/o pulm HTN resumed lasix, dose now for edema
d/w pt in detail
Nephrotic proteinuria:biopsy prelim shows minimal change disease, no autoimmune but lot of global sclerosis-wait for full report , once she recovers from infection will eval initiation of steroids when ok with ID and
this can be done as out pt
-
-
Date of Service: May 30, 2023
CC / HPI / ROS
-
Chief Complaint:
Macrohematuria status post renal biopsy
History of Present Illness:
Urosepsis , E coli bacteremia and urine
Hemodynamically soft off midodrine
Hemoglobin better at 8.7 s/p PRBC /6
ALTA -cr up at 1.2
wt is down
Review of Systems:
patel with clear urine
No chest pain or shortness of breath although
on RA today
no fevers noted
no chest pain or vomiting or sob at rest
Labs
-
Labs:
WBC 7.0 10^3/uL (4.8-10.8) 05/29/23 04:40
RBC 2.96 10^6/uL (4.20-5.40) L 05/29/23 04:40
Hgb 8.7 g/dL (12.0-16.0) L 05/29/23 04:40
Hct 27.7 % (37.0-47.0) L 05/29/23 04:40
Plt Count 113 10^3/uL (130-400) L 05/29/23 04:40
Sodium 136 mmol/L (135-145) 05/30/23 05:23
Potassium 4.1 mmol/L (3.5-5.1) 05/30/23 05:23
Chloride 106 mmol/L (98-107) 05/30/23 05:23
Carbon Dioxide 26 mmol/L (22-30) 05/30/23 05:23
BUN 27 mg/dl (7-17) H 05/30/23 05:23
Creatinine 1.2 mg/dL (0.6-1.0) H 05/30/23 05:23
eGFR 48.39 05/30/23 05:23
Glucose 87 mg/dl (70-99) 05/30/23 05:23
Calcium 8.8 mg/dl (8.4-10.2) 05/30/23 05:23
Albumin 2.7 g/dl (3.5-5.0) L 05/26/23 04:55
Physical Exam
-
Vital Signs:
Vital Signs
Temp Pulse Resp BP Pulse Ox
98.1 F 119 25 95/52 95
05/30/23 12:03 05/30/23 12:14 05/30/23 12:14 05/30/23 12:14 05/30/23 16:58
Cardiovascular:: Regular rate and rhythm
Respiratory:: Bilateral: CTA
Lung Excursion:: Normal
Abdomen:: Nontender and Soft
Extremity Edema:: +2: Bilateral:
Patel Catheter: Yes
[2023-05-30] MEDS: LASIX 60 MG PO (17:20)
[2023-05-30] MEDS: PROTONIX 40 MG PO (17:21)
--- NOTE | 2023-05-30 17:42 | PTCARENOTE ---
Patient OOB in chair most of day with legs down. Notable increased dependent edema. Pt aware and discussed importance of elevating, daily weights, healthy heart diet with sodium restriction. Pt reports she has been following this HH diet for about a
year and that she does monitor her weight daily. p.o. lasix 60mg given per Nephrology MD order/.
[2023-05-30] MEDS: LIPITOR 10 MG PO (21:00)
[2023-05-31] VITALS (17 sets, daily range): BP systolic 86–105; BP diastolic 41–93; BMI 24.5
[2023-05-31] MEDS: ProAmatine 5 MG PO ×2 (05:08→14:27)
[2023-05-31 05:58] LABS: Blood Urea Nitrogen 24 mg/dl (7-17); Calcium 8.4 mg/dl (8.4-10.2); Carbon Dioxide 27 mmol/L (22-30); Chloride 100 mmol/L (98-107); Estimated Creatinine Clearance 42 ml/min; Glucose 92 mg/dl (70-99); Magnesium 1.6 mg/dl (1.6-2.3); Sodium 135 mmol/L (135-145); eGFR 53.72
--- NOTE | 2023-05-31 08:32 | W.PN.HOSP.TC ---
Today's Communication/Plan
-
Antibiotics. Repeat EKG. Monitor blood pressure.
Assessment / Plan
Assessment / Plan
Physical Exam
General: Well Developed, Well Nourished and No Apparent Distress
HEENT: Normocephalic, dry mucous membranes and Atraumatic
Respiratory: limited, no rales or wheezes.
Cardiac: S1/S2
GI: Soft, Non Tender, Non Distended and Normal Bowel Sounds
Rectal: Deferred by Provider
Musculoskeletal: No Clubbing, No Cyanosis and No Edema
Skin: No Rash
Neuro: Nonfocal/grossly intact
Psych: no agitation, pleasant.
A/P:
#Sepsis POA / severe sepsis evolved into septic shock
Bacteremia With E Coli, oliver- sensitive and Morganella morganii cephalosporin resistant, quinolone sensitive
Started on broad spectrum IV Abx, Cefepime 2 gm BID and Vancomycin , changed to meropenem on 05/26 --> currently started on oral ciprofloxacin per ID. Plan to repeat EKG in a.m.
Reculture blood 05/26: no growth
Stopped IVF & Gilbert-synephrine
Stopped Oral Midodrine 5 mg TID, PRN dose. d/w her [place]. SBP runs normally around 90s.
Savage catheter to stay upon dc per urology
Afebrile over night, WBC normal
Known to have lupus/ scleroderma
Appreciate ID, urology and nephrology input
# ALTA due to sepsis/ hypotension
s/p IVF
Creatinine down to 1.1
Maintain Savage
Avoid nephrotoxic medications and renally adjust doses.
# Acute blood loss anemia from hematuria
Underlying also anemia of chronic disease
Low Iron level, c/w oral Iron.
s/p one unit of RBCs 05/27
Consent signed
# Hematuria after left renal biopsy
Creatinine 1.1, hematuria is resolved. Good urine out put. HGB level stable. Outpatient follow up with Dr. Johnson/ Dr Medrano for further neurogenic bladder evaluation
-Postprocedure ultrasound showed small subcapsular hematoma which was not expanding. D/w IR and urology doctors.
c/w pain control, manual irrigation of Savage ( no clots per nursing staff), no need for it as urine is clear now
Pain control with Tylenol, low dose Dilaudid.
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
-Await results of kidney biopsy, was sent to [facility].
Primary cage supervisor is Dr. Guan
# Recently diagnosed scleroderma/lupus overlap
#Chronic HFpEF
-Echo from last year showing EF of 50%
-Holding Lasix , s/p IVF
- Would c/w metoprolol, low dose to avoid tachycardia
Primary kai [place] Dr Diann Bledsoe
Last cath , right side on 03/26/23 showed Severe pulmonary hypertension with minimally elevated left-sided filling pressures
Appreciate cardiology input
#Mild to moderate mitral regurgitation
#Severe pulmonary hypertension
Moderate to severe tricuspid regurgitation
- resume Ambrisentan
- Held sildenafil due to hypotension but can resume as appropiate
#Mild to moderate pulmonary regurgitation
#Essential hypertension
Back on BB. can resume further medications in OP setting.
Hyperlipidemia
-Continue statin
# Hyponatremia, mild, resolved.
GERD
Poor appetite due to sepsis.
PRN Compazine
-Continue PPI
Osteoarthritis
Full code
DVT prophylaxis�SCDs, Holding SQ heparin due to renal hematoma and Hematuria.
Cardiac diet
PT/OT
Total time spent to see the patient, examine the patient on the floor, review data and lab results, discuss treatment plan with patient, family, nursing staff around 57 minutes.
Anticipated Discharge: 24 - 48 hours
Subjective/Interval History
-
Date of Service: May 31, 2023
Patient denies any complaints. Blood pressure on the low side. Denies nausea or vomiting.
Objective Data
-
Labs:
Laboratory Results
05/31/23
05:12
Sodium 135
Potassium 4.0
Chloride 100
Carbon Dioxide 27
BUN 24 H
Creatinine 1.1 H
Glucose 92
Calcium 8.4
Vital Signs:
Vital Signs
Temp Pulse Resp BP Pulse Ox
98.6 F 103 18 93/56 94
05/31/23 03:38 05/31/23 06:00 05/31/23 06:00 05/31/23 06:00 05/31/23 06:00
I&O
05/30/23 05/31/23 06/01/23
06:59 06:59 06:59
Intake Total 1620 / 1620 1200 / 1200
Output Total 3450 / 3450 2775 / 2775
Balance -1830 / -1830 -1575 / -1575
--- NOTE | 2023-05-31 08:40 | W.PN.CARDCBS ---
Today's Communication / Plan
-
Cont Revatio and lasix
Pt already has appt
Please recall if needed.
Impression / Plan
-
.
Primary Outer Diameter Grinder: Dr. Obrien/Dr. Diann Bledsoe
Impression:
Presentation for L renal biopsy for proteinuria, microscopic hematuria
B/L hydronephrosis by CTAP
Small left renal perinephric hematoma
Sepsis
Hypotension, requiring pressor support
Acute anemia
pulmonary hypertension, WHO Group 1 associated with crest, on revatio
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
chronic heart failure with improved EF
recovered nonischemic cardiomyopathy
CKD stage 3A
hypertension
hyperlipidemia
GERD
osteoarthritis
history of bilateral PE status post IVC filter in 2007
RHC 03/26/23 showed Severe pulmonary hypertension with minimally elevated left-sided filling pressures
ECHO 08/04/22: EF 50%, mild LVH with septal flattening, MAC, mild to moderate MR, mildly dilated left atrium, aortic sclerosis, mild AR, dilated and hypokinetic RV with RV H, dilated right atrium, moderate to severe TR, severe pulmonary hypertension,
PAP 7984 mmHg, mildly dilated pulmonary artery with mild to moderate pulmonary regurgitation
Plan:
Sepsis requiring pressor support with neosynephrine - Cardiology consulted for eval as OP revatio (pulmonary hypertension, WHO Group 1 associated with crest) placed on hold
-Patient presented 05/25/2023 for L renal biopsy and was noted in PACU to have R hydronephrosis with subsequent decompensation with evidence of sepsis
Stable from cardiac standpoint.
Pt is back on Revatio 20 mg TID May 30 2023.
-Maintain ambrisentan
BP improved off pressors and midodrine.
Wt was up over 10 lbs and lasix resumed at 60 mg daily instead of 40 mg daily outpt dose.
Pt has appt with Dr Tidwell June 09 and will be reevaluated at that time for volume status and Lasix dosing.
Abx as per ID and primary service.
Please recall if needed.
Progress Note - Outer Diameter Grinder
Subjective
Date of Service: May 31, 2023
Pt seen and examined. No complaints. No chest pain or shortness of breath.
Objective
Labs:
05/29/23 04:40
05/31/23 05:12
Labs
Hgb 8.7 g/dL (12.0-16.0) L 05/29/23 04:40
Hct 27.7 % (37.0-47.0) L 05/29/23 04:40
Plt Count 113 10^3/uL (130-400) L 05/29/23 04:40
PT 14.5 Sec (11.4-14.6) 05/25/23 08:50
INR 1.15 05/25/23 08:50
Sodium 135 mmol/L (135-145) 05/31/23 05:12
Potassium 4.0 mmol/L (3.5-5.1) 05/31/23 05:12
BUN 24 mg/dl (7-17) H 05/31/23 05:12
Creatinine 1.1 mg/dL (0.6-1.0) H 05/31/23 05:12
Glucose 92 mg/dl (70-99) 05/31/23 05:12
Vital Signs and I&O:
Vital Signs
Temp Pulse Resp BP Pulse Ox
98.6 F 103 18 93/56 94
05/31/23 03:38 05/31/23 06:00 05/31/23 06:00 05/31/23 06:00 05/31/23 06:00
Vital Signs
Temp Pulse Resp BP Pulse Ox
98.6 F 103 18 93/56 94
05/31/23 03:38 05/31/23 06:00 05/31/23 06:00 05/31/23 06:00 05/31/23 06:00
Intake & Output
05/29/23 05/30/23 05/31/23 06/01/23
06:59 06:59 06:59 06:59
Intake Total 1690 / 1690 1620 / 1620 1200 / 1200
Output Total 1850 / 1850 3450 / 3450 2775 / 2775
Balance -160 / -160 -1830 / -1830 -1575 / -1575
Physical Exam
Physical Exam
General: No acute distress, AAOX3
Neck: Negative JVD
Heart: Regular, Negative S3 positive S1/S2, Negative S4, No murmur
Lungs: CTA b/l, negative wheezes/rales/rhonchi
Abd: Positive BS, NT/ND, neg rebound/rigidity/guarding
Ext: Negative cyanosis/clubbing/edema
Neuro: nonfocal
[2023-05-31] MEDS: KEFLEX 500 MG PO (08:52)
[2023-05-31] MEDS: FEOSOL 325 MG PO (08:52)
[2023-05-31] MEDS: REVATIO 20 MG PO ×3 (08:52→20:36)
[2023-05-31] MEDS: LASIX 60 MG PO (08:52)
[2023-05-31] MEDS: NON-FORMULARY ITEM 5 MG PO (08:55)
[2023-05-31] MEDS: TOPROL XL 12.5 MG PO (08:58)
--- NOTE | 2023-05-31 09:17 | W.PN.ID1 ---
Date of Service
Date of Service: May 31, 2023
Today's Communication
- start ciprofloxacin 500 mg PO BID; recheck QTc in the AM
- would hold on steroids for today, however likely will be reasonable to start in 24-48 hrs - would like to observe BP on new regimen before finalizing that decision
- would like to see patel removed and replaced tomorrow
Assessment / Plan
Septic Shock - resolved
UTI due to E coli
E coli bacteremia
R sided Hydronephrosis
Possible Neurogenic Bladder - has been on treatment for overactive bladder
- suspected neurogenic bladder with associated R hydronephrosis may explain development of UTI with subsequent progression to shock; I personally do not attribute this to the procedure which had minimal sedation time and did not involve placement of
a patel.
- sensi back on the E coli; a second GNR - morgonella also IDd with >100K cfu, resistant to cefazolin
- start ciprofloxacin 500 mg PO BID; recheck QTc in the AM
- would hold on steroids for today, however likely will be reasonable to start in 24-48 hrs - would like to observe BP on new regimen before finalizing that decision
- would like to see patel removed and replaced tomorrow
- follow up with urology
Chief Complaint
-: UTI
Subjective / Review of Systems
remains afebrile
BP mildly hypotensive since yesterday
without leukocytosis
plt declining
cr further improved
/ blood culture no growth
biopsy prelim shows minimal change disease
'I feel so much better' no dysuria, urgency, frequency, suprapubic tenderness or CVA tenderness
Vital Signs / Physical Exam
Vital Signs
Vital Signs
Temp Pulse Resp BP Pulse Ox
98.6 F 94 18 93/52 94
05/31/23 03:38 05/31/23 08:52 05/31/23 06:00 05/31/23 08:52 05/31/23 06:00
Physical Exam
Constitutional: No Acute Distress
Cardiovascular: Regular Rate and S1/S2; Negative Murmur or Rub
Pulmonary: Clear and Symmetric; Negative Wheezes or Rales
Gastrointestinal: Soft, Non Tender, Non Distended and Normal Bowel Sounds
Genito-Urinary: Negative Suprapubic Tenderness or CVA Tenderness
Skin: Warm and Dry; Negative Rash or Jaundice
Objective Data
Lab Data
Lab Results
05/29/23 04:40
05/31/23 05:12
PT 14.5 Sec (11.4-14.6) 05/25/23 08:50
INR 1.15 05/25/23 08:50
Estimated Creat Clear 42 ml/min 05/31/23 05:12
Lactic Acid 0.6 mmol/L (0.7-2.0) L 05/26/23 16:18
Total Bilirubin 0.5 mg/dl (0.2-1.3) 05/26/23 04:55
AST 16 U/L (14-36) 05/26/23 04:55
ALT < 10 U/L (0-35) 05/26/23 04:55
Alkaline Phosphatase 127 U/L (38-126) H 05/26/23 04:55
Most recent labs reviewed.
Micro Results:
05/27/23 12:34 Blood Culture - Preliminary
Blood/Venous No Growth in 72 hours- Final report to follow
05/26/23 13:16 Blood Culture - Final
Blood/Venous Escherichia coli
Gram Stain - Final
05/26/23 12:35 Blood Culture - Final
Blood/Venous Escherichia coli
Gram Stain - Final
05/26/23 10:51 Urine Culture - Final
Urine Escherichia coli
Morganella morganii
[2023-05-31] MEDS: CIPRO PO (10:19)
[2023-05-31] MEDS: PROTONIX 40 MG PO (16:54)
--- NOTE | 2023-05-31 16:58 | W.PN.NEPH.PH ---
Today's Communication / Plan
-
- Cr stable
- blood pressures remain soft
Assessment/Plan
-
Assessment:
gross hematuria
c/f bleeding s/p kidney biopsy
Urosepsis of Klebsiella type
23g proteinuria
c/f lupus/scleroderma
Bilateral hydronephrosis
ALTA
Acute blood loss anemia from hematuria
Chronic HFpEF
Severe pulmonary hypertension
Mild to moderate mitral regurgitation
Mild to moderate pulmonary regurgitation
Essential hypertension
Hyperlipidemia
Hyponatremia, mild
GERD
Osteoarthritis
-CT report reviewed:
Small left renal perinephric hematoma related to prior biopsy procedure. Small amount of increased attenuation in the visible distal left ureter likely related to blood products from prior biopsy.
Bilateral renal cortical thinning. Chronic bilateral hydronephrosis and hydroureter, with severe right hydronephrosis and moderate to severe left hydronephrosis. Slightly worse as compared with prior study.
Bladder evaluation significantly limited by streak artifacts. There is some wall thickening/trabeculation suggesting outlet obstruction or neurogenic bladder. Probable component of bladder prolapse, not as well-seen as on the prior study.
Plan:
UTI, E coli bacteremia-abx per ID
patel per , h/o neurogenic bladder
ALTA from sepsis-improving now cr 1.2 -seem baseline
hb better post prbc, had mild perinephric hematoma
BP soft off midodrine, holding all antihTN meds still , cortisol level ok
wt is up from baseline with h/o pulm HTN resumed lasix, dose now for edema
plan to initiate steroids upon follow up with me in clinic on 06/07
Nephrotic proteinuria:biopsy prelim shows minimal change disease, no autoimmune but lot of global sclerosis-wait for full report , once she recovers from infection
-
-
Date of Service: May 31, 2023
CC / HPI / ROS
-
Chief Complaint:
Macrohematuria status post renal biopsy
History of Present Illness:
Urosepsis , E coli bacteremia and urine
Hemodynamically soft off midodrine
Hemoglobin better at 8.7 s/p PRBC 05/28
ALTA -cr stable at 1.1
wt is down
Review of Systems:
patel with clear urine
No chest pain or shortness of breath although
on RA today
no fevers noted
no chest pain or vomiting or sob at rest
Labs
-
Labs:
WBC 7.0 10^3/uL (4.8-10.8) 05/29/23 04:40
RBC 2.96 10^6/uL (4.20-5.40) L 05/29/23 04:40
Hgb 8.7 g/dL (12.0-16.0) L 05/29/23 04:40
Hct 27.7 % (37.0-47.0) L 05/29/23 04:40
Plt Count 113 10^3/uL (130-400) L 05/29/23 04:40
Sodium 135 mmol/L (135-145) 05/31/23 05:12
Potassium 4.0 mmol/L (3.5-5.1) 05/31/23 05:12
Chloride 100 mmol/L (98-107) 05/31/23 05:12
Carbon Dioxide 27 mmol/L (22-30) 05/31/23 05:12
BUN 24 mg/dl (7-17) H 05/31/23 05:12
Creatinine 1.1 mg/dL (0.6-1.0) H 05/31/23 05:12
eGFR 53.72 05/31/23 05:12
Glucose 92 mg/dl (70-99) 05/31/23 05:12
Calcium 8.4 mg/dl (8.4-10.2) 05/31/23 05:12
Albumin 2.7 g/dl (3.5-5.0) L 05/26/23 04:55
Physical Exam
-
Vital Signs:
Vital Signs
Temp Pulse Resp BP Pulse Ox
98.0 F 105 20 86/48 97
05/31/23 07:55 05/31/23 14:27 05/31/23 14:00 05/31/23 14:27 05/31/23 14:22
Cardiovascular:: Regular rate and rhythm
Respiratory:: Bilateral: CTA
Lung Excursion:: Normal
Abdomen:: Nontender and Soft
Bowel Sounds:: Normal
Extremity Edema:: +3: Bilateral:
Patel Catheter: Yes
--- NOTE | 2023-05-31 17:16 | CM ---
Patient with Dx sepsis. Room air. PT; likely no needs. OT recommends HH.
Attempted to meet with patient who was unavailable.
Plan offer VN.
Plan home.
[2023-05-31] MEDS: LIPITOR 10 MG PO (20:36)
[2023-05-31] MEDS: CIPRO 500 MG PO (20:36)
[2023-06-01] VITALS (7 sets, daily range): BP systolic 89–104; BP diastolic 46–67; BMI 24.4
[2023-06-01 05:28] LABS: % Basophils 0.4 % (0-2); % Eosinophils 2.1 % (0-6); % Immature Granulocytes 3.9 % (0-0.5); % Lymphocytes 10.4 % (20.5-51.1); % Monocytes 9.7 % (1.7-9.3); % Neutrophils 73.5 % (42.2-75.2); Absolute Eosinophils 0.2 10^3/uL (0-0.7); Absolute Immature Granulocytes 0.3 10^3/uL (0-0.05); Absolute Lymphocytes 0.8 10^3/uL (1.2-3.4); Absolute Monocytes 0.8 10^3/uL (0.1-0.6); Absolute Neutrophils 5.8 10^3/uL (1.4-6.5); Hematocrit 26.9 % (37.0-47.0); Hemoglobin 8.7 g/dL (12.0-16.0); Mean Corp Hgb Conc. 32.3 g/dL (33.0-37.0); Mean Corpuscular Hgb 29.8 pg (27.0-31.0); Mean Corpuscular Volume 92.1 fL (81.0-99.0); Mean Platelet Volume 10.1 fL (7.4-10.4); Nucleated Red Blood Cells % 0 %; Platelet Count 182 10^3/uL (130-400); Red Blood Cell Count 2.92 10^6/uL (4.20-5.40); Red Cell Dist. Width 14.7 % (11.5-14.5); White Blood Cell Count 7.9 10^3/uL (4.8-10.8)
[2023-06-01 05:57] LABS: Blood Urea Nitrogen 23 mg/dl (7-17); Calcium 8.5 mg/dl (8.4-10.2); Carbon Dioxide 27 mmol/L (22-30); Chloride 99 mmol/L (98-107); Estimated Creatinine Clearance 39 ml/min; Glucose 90 mg/dl (70-99); Potassium 3.8 mmol/L (3.5-5.1); Sodium 133 mmol/L (135-145); eGFR 48.39
--- NOTE | 2023-06-01 08:45 | W.PN.ID1 ---
Date of Service
Date of Service: June 01, 2023
Today's Communication
ciprofloxacin 500 mg PO BID; QTc remains acceptable; plan 13 more days given need for steroids
- note plan to initiate steroids outpatient 06/07
- removed and replaced patel before dc
- follow up with nephrology
Assessment / Plan
Septic Shock - resolved
UTI due to E coli
E coli bacteremia
R sided Hydronephrosis
Possible Neurogenic Bladder - has been on treatment for overactive bladder
- continue ciprofloxacin 500 mg PO BID; QTc remains acceptable; plan 13 more days given need for steroids
- note plan to initiate steroids outpatient 06/07
- removed and replaced patel before dc
- follow up with nephrology
Chief Complaint
-: UTI
Subjective / Review of Systems
afebrile
BP remains borderline hypotensive
without leukoyctosis
cr stable
thrombocytopenia improved
I feel good
Vital Signs / Physical Exam
Vital Signs
Vital Signs
Temp Pulse Resp BP Pulse Ox
98.6 F 94 24 89/54 96
06/01/23 04:17 06/01/23 06:00 06/01/23 06:00 06/01/23 06:00 06/01/23 06:00
Physical Exam
Constitutional: No Acute Distress
Cardiovascular: Regular Rate and S1/S2; Negative Murmur or Rub
Pulmonary: Symmetric, Coarse and Non Labored; Negative Wheezes or Rales
Gastrointestinal: Soft, Non Tender, Non Distended and Normal Bowel Sounds
Genito-Urinary: Negative Suprapubic Tenderness
Extremities: Edema
Skin: Warm and Dry; Negative Rash or Jaundice
Objective Data
Lab Data
Lab Results
06/01/23 04:42
06/01/23 04:42
PT 14.5 Sec (11.4-14.6) 05/25/23 08:50
INR 1.15 05/25/23 08:50
Estimated Creat Clear 39 ml/min 06/01/23 04:42
Lactic Acid 0.6 mmol/L (0.7-2.0) L 05/26/23 16:18
Total Bilirubin 0.5 mg/dl (0.2-1.3) 05/26/23 04:55
AST 16 U/L (14-36) 05/26/23 04:55
ALT < 10 U/L (0-35) 05/26/23 04:55
Alkaline Phosphatase 127 U/L (38-126) H 05/26/23 04:55
Most recent labs reviewed.
Micro Results:
05/27/23 12:34 Blood Culture - Preliminary
Blood/Venous No Growth in 4 days- Final report to follow
05/26/23 13:16 Blood Culture - Final
Blood/Venous Escherichia coli
Gram Stain - Final
05/26/23 12:35 Blood Culture - Final
Blood/Venous Escherichia coli
Gram Stain - Final
05/26/23 10:51 Urine Culture - Final
Urine Escherichia coli
Morganella morganii
--- NOTE | 2023-06-01 09:00 | PTCARENOTE ---
Patient received from night shift supervisor. Patient resting comfortably in bed. AAO, VSS. No events noted overnight. No complaints of pain. Possibly being discharged today. Will need to change patel before discharge. Call almaraz in reach.
--- NOTE | 2023-06-01 09:26 | W.PN.HOSP.TC ---
Today's Communication/Plan
-
Continue current management. Discharge planning today
Assessment / Plan
Assessment / Plan
Physical Exam
General: Well Developed, Well Nourished and No Apparent Distress
HEENT: Normocephalic, dry mucous membranes and Atraumatic
Respiratory: limited, no rales or wheezes.
Cardiac: S1/S2
GI: Soft, Non Tender, Non Distended and Normal Bowel Sounds
Rectal: Deferred by Provider
Musculoskeletal: No Clubbing, No Cyanosis and No Edema
Skin: No Rash
Neuro: Nonfocal/grossly intact
Psych: no agitation, pleasant.
A/P:
#Sepsis POA / severe sepsis evolved into septic shock
Bacteremia With E Coli, oliver- sensitive and Morganella morganii cephalosporin resistant, quinolone sensitive
Started on broad spectrum IV Abx, Cefepime 2 gm BID and Vancomycin , changed to meropenem on 05/26 --> currently started on oral ciprofloxacin per ID. Repeat EKG today.
Reculture blood 05/26: no growth
Stopped IVF & Gilbert-synephrine
Stopped Oral Midodrine 5 mg TID, PRN dose. d/w her loom tuner. SBP runs normally around 90s. Will give standing doses of midodrine and reevaluate as outpatient. Would only hold if SBP more than 150 which is unlikely to happen
Savage catheter to stay upon dc per urology
Afebrile over night, WBC normal
Known to have lupus/ scleroderma
Appreciate ID, urology and nephrology input
Nephrology planning on starting on steroids as outpatient
ID okay to continue antibiotics and cleared her for discharge
Cardiology has cleared her prior
# ALTA due to sepsis/ hypotension
s/p IVF
Creatinine down to 1.1-1.2
Maintain Savage
Avoid nephrotoxic medications and renally adjust doses.
# Acute blood loss anemia from hematuria
Underlying also anemia of chronic disease
Low Iron level, c/w oral Iron.
s/p one unit of RBCs 05/27
Consent signed
# Hematuria after left renal biopsy
Creatinine 1.2, hematuria is resolved. Good urine out put. HGB level stable. Outpatient follow up with Dr. Johnson/ Dr Medrano for further neurogenic bladder evaluation
-Postprocedure ultrasound showed small subcapsular hematoma which was not expanding. D/w IR and urology doctors.
c/w pain control, manual irrigation of Savage ( no clots per nursing staff), no need for it as urine is clear now
Pain control with Tylenol, low dose Dilaudid.
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
-Await results of kidney biopsy, was sent to [facility].
Primary pad machine offbearer is Dr. Guan
# Recently diagnosed scleroderma/lupus overlap
#Chronic HFpEF
-Echo from last year showing EF of 50%
-Holding Lasix , s/p IVF
- Would c/w metoprolol, low dose to avoid tachycardia
Primary loom tuner Dr Diann Bledsoe
Last cath , right side on 03/26/23 showed Severe pulmonary hypertension with minimally elevated left-sided filling pressures
Appreciate cardiology input
#Mild to moderate mitral regurgitation
#Severe pulmonary hypertension
Moderate to severe tricuspid regurgitation
- resume Ambrisentan
- Held sildenafil due to hypotension but can resume as appropiate
#Mild to moderate pulmonary regurgitation
#Essential hypertension
Back on BB. can resume further medications in OP setting.
Hyperlipidemia
-Continue statin
# Hyponatremia, mild, resolved.
GERD
Poor appetite due to sepsis.
PRN Compazine
-Continue PPI
Osteoarthritis
Full code
DVT prophylaxis�SCDs, Holding SQ heparin due to renal hematoma and Hematuria.
Cardiac diet
PT/OT
Anticipated Discharge: Today
Subjective/Interval History
-
Date of Service: June 01, 2023
Patient denies any new complaints today. Afebrile
Objective Data
-
Labs:
Laboratory Results
06/01/23
04:42
WBC 7.9
Hgb 8.7 L
Hct 26.9 L
Plt Count 182 D
Sodium 133 L
Potassium 3.8
Chloride 99
Carbon Dioxide 27
BUN 23 H
Creatinine 1.2 H
Glucose 90
Calcium 8.5
Vital Signs:
Vital Signs
Temp Pulse Resp BP Pulse Ox
98.6 F 94 24 89/54 96
06/01/23 04:17 06/01/23 06:00 06/01/23 06:00 06/01/23 06:00 06/01/23 06:00
I&O
05/31/23 06/01/23 06/02/23
06:59 06:59 06:59
Intake Total 1200 / 1200
Output Total 2775 / 2775 1600 / 1600
Balance -1575 / -1575 -1600 / -1600
[2023-06-01] MEDS: REVATIO 20 MG PO (09:34)
[2023-06-01] MEDS: CIPRO 500 MG PO (09:34)
[2023-06-01] MEDS: LASIX 60 MG PO (09:34)
[2023-06-01] MEDS: TOPROL XL 12.5 MG PO (09:34)
[2023-06-01] MEDS: FEOSOL 325 MG PO (09:34)
[2023-06-01] MEDS: NON-FORMULARY ITEM 5 MG PO (09:35)
--- NOTE | 2023-06-01 15:13 | W.PN.NEPH.PH ---
Today's Communication / Plan
-
- likely for d/c today
Assessment/Plan
-
Assessment:
gross hematuria
c/f bleeding s/p kidney biopsy
Urosepsis of Klebsiella type
23g proteinuria
c/f lupus/scleroderma
Bilateral hydronephrosis
ALTA
Acute blood loss anemia from hematuria
Chronic HFpEF
Severe pulmonary hypertension
Mild to moderate mitral regurgitation
Mild to moderate pulmonary regurgitation
Essential hypertension
Hyperlipidemia
Hyponatremia, mild
GERD
Osteoarthritis
-CT report reviewed:
Small left renal perinephric hematoma related to prior biopsy procedure. Small amount of increased attenuation in the visible distal left ureter likely related to blood products from prior biopsy.
Bilateral renal cortical thinning. Chronic bilateral hydronephrosis and hydroureter, with severe right hydronephrosis and moderate to severe left hydronephrosis. Slightly worse as compared with prior study.
Bladder evaluation significantly limited by streak artifacts. There is some wall thickening/trabeculation suggesting outlet obstruction or neurogenic bladder. Probable component of bladder prolapse, not as well-seen as on the prior study.
Plan:
UTI, E coli bacteremia-abx per ID. plan for longer course of ciprofloxacin
patel per , h/o neurogenic bladder
ALTA from sepsis-improving now cr 1.2 -seem baseline
hb better post prbc, had mild perinephric hematoma
BP soft off midodrine, holding all antihTN meds still , cortisol level ok
wt now stable, with h/o pulm HTN resumed lasix, dose now for edema
plan to initiate steroids upon follow up with me in clinic on 06/07
Nephrotic proteinuria:biopsy prelim shows minimal change disease, no autoimmune but lot of global sclerosis-wait for full report , once she recovers from infection
-
-
Date of Service: June 01, 2023
CC / HPI / ROS
-
Chief Complaint:
Macrohematuria status post renal biopsy
History of Present Illness:
Urosepsis , E coli bacteremia and urine
Hemodynamically soft off midodrine
Hemoglobin better at 8.7 s/p PRBC /6
ALTA -cr stable at 1.1
wt is down
Review of Systems:
patel with clear urine
No chest pain or shortness of breath although
on RA today
no fevers noted
no chest pain or vomiting or sob at rest
Labs
-
Labs:
WBC 7.9 10^3/uL (4.8-10.8) 06/01/23 04:42
RBC 2.92 10^6/uL (4.20-5.40) L 06/01/23 04:42
Hgb 8.7 g/dL (12.0-16.0) L 06/01/23 04:42
Hct 26.9 % (37.0-47.0) L 06/01/23 04:42
Plt Count 182 10^3/uL (130-400) D 06/01/23 04:42
Sodium 133 mmol/L (135-145) L 06/01/23 04:42
Potassium 3.8 mmol/L (3.5-5.1) 06/01/23 04:42
Chloride 99 mmol/L (98-107) 06/01/23 04:42
Carbon Dioxide 27 mmol/L (22-30) 06/01/23 04:42
BUN 23 mg/dl (7-17) H 06/01/23 04:42
Creatinine 1.2 mg/dL (0.6-1.0) H 06/01/23 04:42
eGFR 48.39 06/01/23 04:42
Glucose 90 mg/dl (70-99) 06/01/23 04:42
Calcium 8.5 mg/dl (8.4-10.2) 06/01/23 04:42
Albumin 2.7 g/dl (3.5-5.0) L 05/26/23 04:55
Physical Exam
-
Vital Signs:
Vital Signs
Temp Pulse Resp BP Pulse Ox
98.1 F 98 24 95/54 92
06/01/23 07:45 06/01/23 09:34 06/01/23 06:00 06/01/23 09:34 06/01/23 11:16
Cardiovascular:: Regular rate and rhythm
Respiratory:: Bilateral: CTA
Lung Excursion:: Normal
Abdomen:: Nontender and Soft
Bowel Sounds:: Normal
Extremity Edema:: +2: Bilateral:
Patel Catheter: Yes
--- NOTE | 2023-06-01 15:24 | W.DCSUMMARY ---
Addendum entered and electronically signed by Nasim Rashid MD 06/02/23 14:24:
Correction--> date of discharge 06/01/2023.
Original Note:
Discharge Summary
Discharge Data
Date of Admission: 05/25/23
Date of Discharge: 06/02/23
-
Pending Results: No
Hospital Course
Patient 73 years old female history of lupus and scleroderma as well as pulmonary hypertension, hypertension, hyperlipidemia, GERD, osteoarthritis, among other medical problems, presented to the hospital for elective renal biopsy but found to have
gross hematuria postprocedure. She was also found to have severe right hydronephrosis. Urology was consulted. Urology felt this was neurogenic bladder and Savage catheter placed. Savage catheter exchanged prior to discharge but outpatient urology
follow-up recommended. Nephrology consulted as well. Her creatinine peaked at 1.5 and went down to 1.2. Nephrology planning to start steroids as outpatient. Her course complicated with sepsis due to urinary tract infection. She required
intravenous fluid resuscitation as well as pressors. Cardiology and infectious disease were consulted. Cardiology okay to restart her cardiac medications but adjustments needed as described on the discharge list and she needed to be started on
midodrine for blood pressure support due to hypotension. Midodrine can be reevaluated in the next couple weeks as outpatient. She grew pansensitive E. coli in her blood and E. coli and Morganella in the urine. ID recommended to discharge on
quinolones, ciprofloxacin for 13 more days. Outpatient pharmacy was concerned about statin and ciprofloxacin interaction rightly so therefore instructed patient to hold statin until finished a course of antibiotics as outpatient. Otherwise,
patient is hemodynamically stable, afebrile, and feels back to her baseline. She was also assessed for home oxygen needs and she does not require any oxygen upon discharge. PT evaluated during this hospital stay and they said likely no PT needs.
I did ask case advocate to evaluate for any home health needs. She is going to be discharged in stable condition today.
Discharge duration: 37 minutes
Discharge Plan
-
Patient Disposition: Home (Routine Discharge)
Discharge Diagnosis/Procedures: Sepsis due to bacteremia and urinary tract
Hydronephrosis/neurogenic bladder
Pulmonary hypertension
Diet: Low Cholesterol
Activity: As tolerated
Driving Restrictions: As prior to admission
Blood Work: Please PCP to order CBC, BMP within 1 week
Specialty Instructions: Weigh Daily- Call MD for wt gain/loss 3 lbs overnight/5 lbs in 1 week
Referrals:
Nataliia Mobley PA-C [Family Provider] - in less than 1 week
Madeline Guan MD [Active] - in two to four weeks
Diann Bledsoe MD [Active] - 06/10/23 11:20 am (You have cardiology follow up with Dr. Diann Bledsoe on June 09 at 11:20 AM. If you are unable to make this appointment please call [phone] to reschedule)
Lubna Chavez MD [Active] - in two to three weeks
Prescriptions:
New
midodrine 5 mg Tablet
5 mg PO Q8H 15 Days Qty: 45 0RF
ciprofloxacin HCl 500 mg Tablet
500 mg PO BID 13 Days Qty: 26 0RF
metoprolol succinate 25 mg Tablet Extended Release 24 Hr
12.5 mg PO DAILY 30 Days Qty: 15 0RF
Continued
aspirin 81 mg Tablet,Delayed Release (Dr/Ec)
81 mg PO DAILY
ferrous sulfate [Iron (ferrous sulfate)] 325 mg (65 mg iron) Tablet
325 mg PO DAILY
esomeprazole magnesium [Nexium] 20 mg Capsule,Delayed Release(Dr/Ec)
20 mg PO QPM
cranberry extract [Ellura] 200 mg Capsule
200 mg PO DAILY
furosemide [Lasix] 40 mg tablet
60 mg PO DAILY
sildenafil (pulm.hypertension) 20 mg Tablet
20 mg PO TID
ambrisentan [Letairis] 5 mg Tablet
5 mg PO DAILY
ambrisentan 5 mg Tablet
5 mg PO DAILY
Held
simvastatin 20 mg Tablet
20 mg PO HS
Hold Instructions: Resume on 06/15/23.
Discontinued
metoprolol succinate 25 mg Tablet Extended Release 24 Hr
25 mg PO DAILY Qty: 90 3RF
losartan 25 mg tablet
50 mg PO DAILY
Discharge Orders:
Discharge Patient (As Directed); Ordered 06/01/23
Ordered By: Nasim Rashid
Discharge Date and Time
Discharge Date/Time: 06/01/23 16:47
Print Language: ROMANIAN
--- NOTE | 2023-06-01 16:03 | CM ---
CM reviewed chart and noted dc order
Bedside meeting pt
In agreement with VN through VN
Referral made to [facility]
IMM verbally completed- copy provided
Pt requested resources for spouse with dementia
Provided [facility] info
Outreach to Dr Rashid- confirmed no home O2 is needed on dc
VN order on chart
Discharge Disposition- home with VN- son transport
--- NOTE | 2023-06-01 16:44 | PTCARENOTE ---
Patient discharged to home with her son. Discharge instructions reviewed and all questions answered. Patient left with all know belongings. Patient taken to discharge area by RN via wheel chair.
--- NOTE | 2023-06-01 16:59 | VNURNOTE ---
Home Health Liaison spoke with patient at 1615 to discuss [facility] nurse/therapy, visits, schedule and homebound status. Patient is agreeable and understands that visits at home will be 2-3 x per week to assess and teach medical management and catheter
care.
Patient is aware that [facility] will contact them for start of care in 1-2 days after discharge from .
[facility] referral completed in [facility].
== END 2023-06-01 16:47 | disposition home health service (06) | DRG 871 ==
LOC: IMU 18:33
PROVIDERS: Internal Medicine; Internal Medicine Cardiovascular Disease; Nurse Practitioner Gerontology; Radiology Diagnostic Radiology; Radiology Vascular & Interventional Radiology; Specialist; ADMITTING PHYSICIAN Hospitalist; ATTENDING PHYSICIAN Hospitalist; CONSULT PHYSICIAN Student in an Organized Health Care Education/Training Program; CONSULT PHYSICIAN Urology; FAMILY PHYSICIAN Physician Assistant; OTHER PHYSICIAN Internal Medicine Cardiovascular Disease
PROC: 0TB13ZX Excision of Left Kidney, Percutaneous Approach, Diagnostic (ICD-10-PCS; 2023-05-25)
PROC: 02HV33Z Insertion of Infusion Device into Superior Vena Cava, Percutaneous Approach (ICD-10-PCS; 2023-05-27)
PROC: 30243N1 Transfusion of Nonautologous Red Blood Cells into Central Vein, Percutaneous Approach (ICD-10-PCS; 2023-05-28)
DX: A41.51 Sepsis due to Escherichia coli [E. coli] (principal); J96.01 Acute respiratory failure with hypoxia; R65.21 Severe sepsis with septic shock; I13.0 Hypertensive heart and chronic kidney disease with heart failure and stage 1 through stage 4 chronic kidney disease, or unspecified chronic kidney disease; N13.6 Pyonephrosis; E87.1 Hypo-osmolality and hyponatremia; D62 Acute posthemorrhagic anemia; S37.012A Minor contusion of left kidney, initial encounter; N17.9 Acute kidney failure, unspecified; I50.32 Chronic diastolic (congestive) heart failure; I42.8 Other cardiomyopathies; E87.20 Acidosis, unspecified; N99.840 Postprocedural hematoma of a genitourinary system organ or structure following a genitourinary system procedure; R31.0 Gross hematuria; N18.31 Chronic kidney disease, stage 3a; I27.21 Secondary pulmonary arterial hypertension; K21.9 Gastro-esophageal reflux disease without esophagitis; N32.81 Overactive bladder; R80.9 Proteinuria, unspecified; R79.82 Elevated C-reactive protein (CRP); K44.9 Diaphragmatic hernia without obstruction or gangrene; D63.8 Anemia in other chronic diseases classified elsewhere; E61.1 Iron deficiency; M34.9 Systemic sclerosis, unspecified; E78.00 Pure hypercholesterolemia, unspecified; M19.90 Unspecified osteoarthritis, unspecified site; N32.0 Bladder-neck obstruction; Y84.8 Other medical procedures as the cause of abnormal reaction of the patient, or of later complication, without mention of misadventure at the time of the procedure; Y78.0 Diagnostic and monitoring radiological devices associated with adverse incidents; Y92.239 Unspecified place in hospital as the place of occurrence of the external cause; N26.9 Renal sclerosis, unspecified; M32.14 Glomerular disease in systemic lupus erythematosus; N39.41 Urge incontinence; N31.9 Neuromuscular dysfunction of bladder, unspecified; M32.9 Systemic lupus erythematosus, unspecified; I37.1 Nonrheumatic pulmonary valve insufficiency; I08.1 Rheumatic disorders of both mitral and tricuspid valves; Z86.711 Personal history of pulmonary embolism; Z79.82 Long term (current) use of aspirin; Z95.828 Presence of other vascular implants and grafts
CPT/HCPCS: 36415; 50200; 71045; 74176; 76942; 80048; 80053; 80202; 81003; 81015; 82533; 82962; 83540; 83605; 83735; 85014; 85018; 85025; 85027; 85610; 86850; 86900; 86901; 86920; 87040; 87077; 87086; 87149; 87186; 87205; 93005; 97116; 97162; 97166; 99152; 99153; P9016

== ENCOUNTER → 2023-06-08 11:15 | Outpatient (REF) | payer MEDICARE, OTHER, SELFPAY ==
[2023-06-08 11:45] LABS: Hematocrit 29.7 % (37.0-47.0); Hemoglobin 9.4 g/dL (12.0-16.0); Mean Corp Hgb Conc. 31.6 g/dL (33.0-37.0); Mean Corpuscular Hgb 29.9 pg (27.0-31.0); Mean Corpuscular Volume 94.6 fL (81.0-99.0); Mean Platelet Volume 9.1 fL (7.4-10.4); Platelet Count 563 10^3/uL (130-400); Red Blood Cell Count 3.14 10^6/uL (4.20-5.40); Red Cell Dist. Width 15.6 % (11.5-14.5); White Blood Cell Count 9.2 10^3/uL (4.8-10.8)
[2023-06-08 11:55] LABS: Blood Urea Nitrogen 18 mg/dl (7-17); Calcium 9.2 mg/dl (8.4-10.2); Carbon Dioxide 29 mmol/L (22-30); Chloride 99 mmol/L (98-107); Glucose 96 mg/dl (70-99); Potassium 3.6 mmol/L (3.5-5.1); Sodium 134 mmol/L (135-145); eGFR 48.39
== END ==
LOC: CLAB 11:15
PROVIDERS: ATTENDING PHYSICIAN Physician Assistant
DX: M32.9 Systemic lupus erythematosus, unspecified (principal)
CPT/HCPCS: 36415; 80048; 85027

== ENCOUNTER 2023-07-12 12:16 | Emergency (ER) | payer MEDICARE, OTHER, SELFPAY ==
[2023-07-12 12:18] VITALS: BP 123/68
[2023-07-12 12:44] LABS: % Basophils 0.2 % (0-2); % Immature Granulocytes 4.3 % (0-0.5); % Neutrophils 91.5 % (42.2-75.2); Absolute Immature Granulocytes 0.6 10^3/uL (0-0.05); Absolute Lymphocytes 0.3 10^3/uL (1.2-3.4); Absolute Monocytes 0.3 10^3/uL (0.1-0.6); Absolute Neutrophils 12.2 10^3/uL (1.4-6.5); Hematocrit 30.3 % (37.0-47.0); Mean Corpuscular Hgb 30.8 pg (27.0-31.0); Mean Corpuscular Volume 93.2 fL (81.0-99.0); Nucleated Red Blood Cells % 0 %; Red Blood Cell Count 3.25 10^6/uL (4.20-5.40); White Blood Cell Count 13.3 10^3/uL (4.8-10.8)
[2023-07-12 13:08] LABS: ALT (SGPT) 17 U/L (0-35); AST (SGOT) 20 U/L (14-36); Albumin 3.8 g/dl (3.5-5.0); Alkaline Phosphatase 86 U/L (38-126); Blood Urea Nitrogen 34 mg/dl (7-17); Calcium 9.2 mg/dl (8.4-10.2); Carbon Dioxide 26 mmol/L (22-30); Chloride 97 mmol/L (98-107); Glucose 142 mg/dl (70-99); Potassium 3.8 mmol/L (3.5-5.1); Sodium 133 mmol/L (135-145); Total Bilirubin 0.8 mg/dl (0.2-1.3); Total Protein 6.1 g/dl (6.3-8.2); eGFR 48.39
--- NOTE | 2023-07-12 13:15 | ED.SKININJ ---
HPI-Injury
General
Chief Complaint: Skin Problem
Source: patient
Exam Limitations: none
Time Seen by Provider: 07/12/23 13:06
Travel History
Have you had any contact with someone who has COVID-19?: No
Do you have any symptoms of coronavirus? Fever > 100 degrees, chills, cough, shortness of breath, sore throat, loss of taste or smell, muscle aches, or headache?: No
History of Present Illness-Injury
Initial Injury comments:
73-year-old female sent in by urology for evaluation of hematoma on left hip. Patient had a procedure, a flow dynamics study done at the urology office 3 days ago. Patient denies recalling any pain. She states the chair was slightly
uncomfortable. But since then she developed bruising to the left lateral hip and lower abdomen. She is on aspirin on prednisone as well. She notes she feels slightly fatigued but denies lightheadedness or shortness of breath. Sent in by urology
for further evaluation.
Past History
Past History
ED Past Medical History: CHF, GERD, HTN, Hypercholesterolemia, Other (pulm htn) and Other (PE)
Social History
Tobacco: Non-smoker
Alcohol: None
Drug: None
Phy Exam
Physical Exam
Physical Exam:
General: Well-appearing female no acute respiratory distress
HEENT: Normocephalic atraumatic
Heart: Regular rate and rhythm no murmurs
Lungs: Clear no wheeze or rales
Abdomen is soft nontender nondistended guarding rebound normal bowel sounds
Skin: Ecchymosis noted over the anterior medial and lateral aspect left hip. This is overlying a prior surgical incision for total hip replacement this is slightly tender to the touch. This is not tight. There is no oozing. No underlying
erythema compartments are soft
Course
Orders/Labs/Results
Orders:
Orders
07/12/23 12:30
Complete Blood Count/With Diff Urgent
Comprehensive Metabolic Panel Urgent
PTT Urgent
Prothrombin Time Urgent
07/12/23 13:13
CT Abd/pelvis W Iv Cont Urgent
Comment:
Reason For Exam: left hip hematoma
Abnormal Lab Results
07/12/23
12:30
WBC 13.3 H 10^3/uL
(4.8-10.8)
RBC 3.25 L 10^6/uL
(4.20-5.40)
Hgb 10.0 L g/dL
(12.0-16.0)
Hct 30.3 L %
(37.0-47.0)
RDW 17.0 H %
(11.5-14.5)
Plt Count 62 L 10^3/uL
(130-400)
Abs Immat Gran (auto) 0.6 H 10^3/uL
(0-0.05)
Absolute Neuts (auto) 12.2 H 10^3/uL
(1.4-6.5)
Absolute Lymphs (auto) 0.3 L 10^3/uL
(1.2-3.4)
Immature Gran % 4.3 H %
(0-0.5)
Neutrophils % 91.5 H %
(42.2-75.2)
Lymphocytes % 2.0 L %
(20.5-51.1)
APTT 19.5 L Sec
(23.4-35.0)
Sodium 133 L mmol/L
(135-145)
Chloride 97 L mmol/L
(98-107)
BUN 34 H mg/dl
(7-17)
Creatinine 1.2 H mg/dL
(0.6-1.0)
Glucose 142 H mg/dl
(70-99)
Total Protein 6.1 L g/dl
(6.3-8.2)
07/12/23 12:30
07/12/23 12:30
Vital Signs
Initial and Last Documented VS:
Initial Vital Signs
Temp Pulse Resp BP Pulse Ox
98.9 F 91 20 123/68 98
07/12/23 12:18 07/12/23 12:18 07/12/23 12:18 07/12/23 12:18 07/12/23 12:18
Last Documented Vital Signs
Temp Pulse Resp BP Pulse Ox
98.9 F 96 18 121/74 98
07/12/23 12:18 07/12/23 13:51 07/12/23 13:51 07/12/23 13:51 07/12/23 13:51
MDM/Problems Addressed
Differential Diagnosis Includes:
Ecchymosis noted over left hip. Question etiology of hematoma versus muscle strain. This does not seem to be enlarging. Vital signs are stable. Will check labs. Will order CT of abdomen pelvis with IV contrast to evaluate for any deeper
hematoma.
*Critical Care Note
Total Time (30-74mins, 75-104mins- exclusive of procedures): Not Applicable
Update Note
Update Note:
Exam consistent with ecchymosis/hematoma of the left hip. No sign of cellulitis or infection. Hemoglobin stable in fact improved from last visit however platelets are lower than last visit at 62,000. Discussed with emergency room attending.
Relayed this information to the urologist at [facility] as well. No indication for admission. Recommend close follow-up with family doctor for recheck of blood counts
ED Attending Note
-
Portions of this chart may have been created with voice recognition software.� Occasional wrong word or��sound alike� substitutions may have occurred due to the inherent limitations of voice recognition software.
Discharge Plan
Departure
Patient Disposition: Home (Routine Discharge)
Date of Disposition: 07/12/23
Time of Disposition: 15:22
Patient with high blood pressure during this ER visit?: No
Discharge Problem:
Contusion
Instructions: Contusion
Prescriptions:
No Action
aspirin 81 mg Tablet,Delayed Release (Dr/Ec)
81 mg PO DAILY
simvastatin 20 mg Tablet
20 mg PO HS
Hold Instructions: Resume on 06/15/23.
ferrous sulfate [Iron (ferrous sulfate)] 325 mg (65 mg iron) Tablet
325 mg PO DAILY
esomeprazole magnesium [Nexium] 20 mg Capsule,Delayed Release(Dr/Ec)
20 mg PO QPM
cranberry extract [Ellura] 200 mg Capsule
200 mg PO DAILY
furosemide [Lasix] 40 mg tablet
60 mg PO DAILY
sildenafil (pulm.hypertension) 20 mg Tablet
20 mg PO TID
ambrisentan [Letairis] 5 mg Tablet
5 mg PO DAILY
ambrisentan 5 mg Tablet
5 mg PO DAILY
midodrine 5 mg Tablet
5 mg PO Q8H 15 Days Qty: 45 0RF
ciprofloxacin HCl 500 mg Tablet
500 mg PO BID 13 Days Qty: 26 0RF
metoprolol succinate 25 mg Tablet Extended Release 24 Hr
12.5 mg PO DAILY 30 Days Qty: 15 0RF
Referrals:
Nataliia Mobley PA-C [Family Provider] -
Activity Restrictions/Additional Instructions:
Please follow-up with family doctor in the next 1 to 2 weeks for recheck of blood. Return here for signs of increased bleeding or other concerning findings
Interventions
Interventions:
*Risk Screen - Suicide Last Done: 07/12/23 12:18
*General Assessment Last Done: 07/12/23 12:18
*Neglect/Abuse Screening Last Done: 07/12/23 12:18
ED- Fall Risk Assessment Last Done: 07/12/23 12:48
ED-Skin Assessment Last Done: 07/12/23 12:48
Discharge Date and Time
Print Language: SWEDISH
[2023-07-12 13:26] LABS: APTT 19.5 Sec (23.4-35.0); INR 1.13; PT 14.3 Sec (11.4-14.6)
[2023-07-12 13:34] LABS: Mean Platelet Volume 10.4 fL (7.4-10.4); Platelet Count 62 10^3/uL (130-400)
[2023-07-12 13:51] VITALS: BP 121/74
[2023-07-12 15:39] VITALS: BP 110/58
== END 2023-07-12 16:35 | disposition home or self-care (01) ==
LOC: EMR 12:16
PROVIDERS: Emergency Medicine; EMERGENCY PHYSICIAN Emergency Medicine; FAMILY PHYSICIAN Physician Assistant
DX: S70.02XA Contusion of left hip, initial encounter (principal); S30.1XXA Contusion of abdominal wall, initial encounter; R53.83 Other fatigue; X58.XXXA Exposure to other specified factors, initial encounter; E78.00 Pure hypercholesterolemia, unspecified; K21.9 Gastro-esophageal reflux disease without esophagitis; I27.20 Pulmonary hypertension, unspecified; I50.9 Heart failure, unspecified; Z96.642 Presence of left artificial hip joint; Z86.711 Personal history of pulmonary embolism; Z79.82 Long term (current) use of aspirin
CPT/HCPCS: 99285; 74177; 80053; 85025; 85610; 85730; Q9967

== ENCOUNTER 2023-08-14 13:06 | Inpatient (IN) | payer MEDICARE, OTHER, SELFPAY ==
[2023-08-14] VITALS (12 sets, daily range): BP systolic 90–114; BP diastolic 54–74; BMI 25.8
--- NOTE | 2023-08-14 07:14 | ED.GENMED ---
History of Present Illness
General
Chief Complaint: Fall
Source: patient
Exam Limitations: none
Time Seen by Provider: 08/14/23 06:24
Nursing documentation reviewed up to this point in time: agreed with
History of Present Illness
History of Present Illness:
Patient presents to ED for evaluation after losing balance and falling onto her right side, hitting the right side of her head against the corner of his toy box and landing on her right hip/leg. Denies hitting her head. Denies loss of
consciousness. Denies loss of sensation or weakness. Denies chest pain or shortness of breath. Denies preceding chest palpitations or dizziness. Patient does not take any blood thinning medications. Patient's medical history is significant for
bilateral prosthetic hip. In addition, patient states that she has chronic renal insufficiency and also has noted low platelet count as an outpatient, and is awaiting evaluation with hematology. Denies recent illness. Denies recent change in
medications or diet.
Past History
Past History
ED Past Medical History: CHF, GERD, HTN, Hypercholesterolemia, Other (pulm htn) and Other (PE)
Social History
Tobacco: Non-smoker
Alcohol: None
Drug: None
Review of Systems
Review of Systems
Allergies reviewed?: Yes
All Other Systems: ROS reviewed and negative except as documented in HPI and ROS
Constitutional: Reports no symptoms; Denies fever
Respiratory: Reports no symptoms; Denies trouble breathing
Cardiac: Reports no symptoms; Denies chest pain, palpitations or syncope
ABD/GI: Reports no symptoms; Denies nausea or vomiting
: Reports no symptoms; Denies incontinence
Musculoskeletal: Reports other (Hip and knee pain)
Skin: Reports no symptoms
Neurological: Reports no symptoms; Denies headache, weakness or numbness
Phy Exam
Physical Exam
Physical Exam:
Physical Exam
General: mild distress, not acutely ill. afebrile
Head: nc/at. eomi
Neck: supple. normal range of motion. ecchymosis/swelling, with minimal tenderness noted over prox carotid vessel, without bleeding.
Heart: s1/s2 regular rate and rhythm, no murmur. equal radial pulses.
Lungs: no acute respiratory distress. clear bilaterally. chest wall nontender to palpation.
Abdomen: normal bowel sounds. not tender.
Neuro: alert and oriented. no focal neurological deficits
Skin: no rash. warm to touch.
Psychiatric: well kept. interactive and cooperative
Extremities: right hip - faint ecchymosis noted over lateral hip with diffuse tenderness. right knee: ecchymosis/swelling noted over patella, ROM limited due to pain.
Course
Orders/Labs/Results
Orders:
Orders
08/14/23 06:54
CR Hip - RT w/wo Pel 2-3 Vw* Urgent
Comment:
Reason For Exam: trauma
Include a pelvis x-ray?: Yes
CR Knee- Right 4 Or More View* Urgent
Comment:
Reason For Exam: trauma
08/14/23 07:01
Type+Screen Urgent
Basic Metabolic Panel Urgent
Complete Blood Count/With Diff Urgent
Magnesium Urgent
08/14/23 07:33
Add On- LAB Urgent
Tests Added?: magnesium
0.9% Sodium Chloride 500 ml [Nss] 500 ml IV BOLUS
08/14/23 08:45
Potassium Chloride [KCl] 40 meq PO NOW STA
08/14/23 08:54
US Carotid [US Cerebrovascular] Urgent
Comment:
Reason For Exam: right side of neck trauma
08/14/23 Lunch
Regular
At Your Request: Full Participation
08/14/23 10:14
Acetaminophen [Tylenol] 1,000 mg .ROUTE .STK-MED ONE
Acetaminophen [Tylenol] 1,000 mg PO NOW STA
08/14/23 10:15
Acetaminophen [Tylenol] 1,000 mg PO NOW STA
08/14/23 10:48
ORTHOPEDIC CONSULT Urgent
Consulting Provider: Eren Rodriguez
Was physician already notified: Yes
Reason for consult: periprosthetic fx
08/14/23 12:06
Physical Therapy Consult [Pt Eval And Treat] Routine
Treatment: WBAT on walker. No active/passive abduction or adduction
Activity Level: As Tolerated
With Assistance
08/14/23 12:34
Admit/Transfer Patient As Directed
Co-Sign Provider:
Level of Care: Inpatient admission
Assign to:: Medical/Surgical
Physician / Group: uet mathew
Diagnosis: R periprosthetic hip fracture
Reason for Hospitalization: R periprosthetic hip fracture
Expected length of stay greater than two midnights?: Yes
ELOS- Estimated Length of Stay in days: 2
I certify the patient meets the requirements for IP care: Yes
08/14/23 12:37
Code Status As Directed
Resuscitation Status: Full Code
Abnormal Lab Results
08/14/23
07:01
RBC 2.58 L 10^6/uL
(4.20-5.40)
Hgb 8.7 L g/dL
(12.0-16.0)
Hct 26.5 L %
(37.0-47.0)
MCV 102.7 H fL
(81.0-99.0)
MCH 33.7 H pg
(27.0-31.0)
MCHC 32.8 L g/dL
(33.0-37.0)
RDW 19.2 H %
(11.5-14.5)
Plt Count 71 L 10^3/uL
(130-400)
Abs Immat Gran (auto) 0.4 H 10^3/uL
(0-0.05)
Absolute Lymphs (auto) 0.9 L 10^3/uL
(1.2-3.4)
Immature Gran % 6.2 H %
(0-0.5)
Lymphocytes % 12.6 L %
(20.5-51.1)
Sodium 132 L mmol/L
(135-145)
Potassium 3.2 L mmol/L
(3.5-5.1)
Chloride 96 L mmol/L
(98-107)
Carbon Dioxide 32 H mmol/L
(22-30)
BUN 28 H mg/dl
(7-17)
Creatinine 1.1 H mg/dL
(0.6-1.0)
08/14/23 07:01
08/14/23 07:01
Vital Signs
Initial and Last Documented VS:
Initial Vital Signs
Temp Pulse Resp BP
97.7 F 87 15 114/74
08/14/23 06:25 08/14/23 06:25 08/14/23 06:25 08/14/23 06:25
Last Documented Vital Signs
Temp Pulse Resp BP Pulse Ox
97.7 F 93 16 99/58 96
08/14/23 06:25 08/14/23 14:15 08/14/23 14:15 08/14/23 14:00 08/14/23 14:15
MDM/Problems Addressed
MDM/Problems Addressed:
Blood work reviewed, significant for ongoing thrombocytopenia.
X-ray reveals right periprosthetic hip fracture. Dr. Rodriguez, orthopedic surgery, notified via [employer] text. Patient will be admitted for further evaluation treatment, including pain control as well as PT/OT evaluation. In addition, patient may
benefit from evaluation with hematology service, due to ongoing thrombocytopenia.
Carotid US ordered for evaluation of right side neck trauma, especially in light of patient's ongoing renal insufficiency. If it reveals any abnormal findings, may need CTA neck to evaluate further.
*Critical Care Note
Total Time (30-74mins, 75-104mins- exclusive of procedures): Not Applicable
ED Attending Note
-
Portions of this chart may have been created with voice recognition software.� Occasional wrong word or��sound alike� substitutions may have occurred due to the inherent limitations of voice recognition software.
Discharge Plan
Departure
Patient Disposition: Admit
Date of Disposition: 08/14/23
Time of Disposition: 08:45
Admit to: Telemetry
Presentation/result/management discussed w/ accepting MD/DO: Hospitalist
Discharge Problem:
Hip fracture, Thrombocytopenia, Hypokalemia
Interventions
Interventions:
*Risk Screen - Suicide Last Done: 08/14/23 06:25
*General Assessment Last Done: 08/14/23 06:25
*Neglect/Abuse Screening Last Done: 08/14/23 06:25
ED- Fall Risk Assessment Last Done: 08/14/23 06:25
*ED COVID-19 Vaccine History Last Done: 08/14/23 06:25
ED-Musculoskeletal Assessment Last Done: 08/14/23 06:25
ED- Neurological Assessment Last Done: 08/14/23 06:25
ED-Skin Assessment Last Done: 08/14/23 06:25
[2023-08-14 07:16] LABS: % Basophils 0.1 % (0-2); % Eosinophils 0.1 % (0-6); % Immature Granulocytes 6.2 % (0-0.5); % Lymphocytes 12.6 % (20.5-51.1); % Monocytes 6.6 % (1.7-9.3); % Neutrophils 74.4 % (42.2-75.2); Absolute Immature Granulocytes 0.4 10^3/uL (0-0.05); Absolute Lymphocytes 0.9 10^3/uL (1.2-3.4); Absolute Monocytes 0.5 10^3/uL (0.1-0.6); Absolute Neutrophils 5.2 10^3/uL (1.4-6.5); Hematocrit 26.5 % (37.0-47.0); Hemoglobin 8.7 g/dL (12.0-16.0); Mean Corp Hgb Conc. 32.8 g/dL (33.0-37.0); Mean Corpuscular Hgb 33.7 pg (27.0-31.0); Mean Corpuscular Volume 102.7 fL (81.0-99.0); Nucleated Red Blood Cells % 0 %; Platelet Count 71 10^3/uL (130-400); Red Blood Cell Count 2.58 10^6/uL (4.20-5.40); Red Cell Dist. Width 19.2 % (11.5-14.5); White Blood Cell Count 6.9 10^3/uL (4.8-10.8)
[2023-08-14 07:26] LABS: Blood Urea Nitrogen 28 mg/dl (7-17); Calcium 9.1 mg/dl (8.4-10.2); Carbon Dioxide 32 mmol/L (22-30); Chloride 96 mmol/L (98-107); Estimated Creatinine Clearance 39 ml/min; Glucose 95 mg/dl (70-99); Potassium 3.2 mmol/L (3.5-5.1); Sodium 132 mmol/L (135-145); eGFR 53.72
[2023-08-14] MEDS: NSS 500 IV (07:51)
[2023-08-14 08:44] LABS: Magnesium 2.2 mg/dl (1.6-2.3)
[2023-08-14] MEDS: KCL 40 MEQ PO (08:53)
--- NOTE | 2023-08-14 09:40 | HPS.HSE ---
Family Physician
-
Family Physician: Nataliia Mobley
Chief Complaint
-
Fall
History of Present Illness
73-year-old female with a past medical history of minimal-change kidney disease, lupus/scleroderma overlap, CHF, hypertension, and hyperlipidemia presents with a mechanical fall. Patient reports losing her balance in the morning, and fell. Denies
loss of consciousness, denies hitting her head. She did hit her neck, and has a bruise. No fever. No chest pain, no shortness of breath. 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
Medical History
Past Medical History
Past Medical History: Reports Other
Additional Past Medical History:
Minimal-change kidney disease, lupus/scleroderma overlap, CHF, hypertension, hyperlipidemia, pulmonary hypertension, mitral regurgitation, gastroesophageal reflux disease, osteoarthritis
Past Surgical History: Reports None and Other
Additional Past Surgical History:
Bilateral total hip arthroplasty
Hysterectomy
Bladder surgery
Cataract surgery
Social History
Tobacco: Non-smoker
Alcohol: Occasional
Drug: None
Personal:
Living: With Family
Family History
Family History: Not pertinent
Allergies / Home Medications
Allergies reflects when Allergies were last updated in [employer].
Home Medications with original date entered in [employer]
Allergy/Medication List:
Allergies
Allergy/AdvReac Type Severity Reaction Status Date / Time
No Known Allergies Allergy Verified 07/12/23 12:25
Home Medications Table - record
�Medication �Instructions �Recorded �Confirmed
esomeprazole magnesium 20 mg 20 mg PO QPM GERD 03/10/22 08/14/23
capsule,delayed release (Nexium)
ferrous sulfate 325 mg (65 mg 325 mg PO DAILY Supplement 03/10/22 08/14/23
iron) tablet (Iron (ferrous
sulfate))
simvastatin 20 mg tablet 20 mg PO HS High cholesterol 03/10/22 08/14/23
cranberry extract 200 mg capsule 200 mg PO DAILY Supplement 09/10/22 08/14/23
(Ellura)
furosemide 40 mg tablet (Lasix) 60 mg PO DAILY Fluid 03/26/23 08/14/23
Retention/Swelling
sildenafil (pulm.hypertension) 20 20 mg PO TID pulmonary hypertension 05/24/23 08/14/23
mg tablet
ambrisentan 5 mg tablet 5 mg PO DAILY 05/25/23 08/14/23
metoprolol succinate 25 mg 12.5 mg (1/2 x 25 mg) PO DAILY 30 06/01/23 08/14/23
tablet,extended release 24 hr days #15 tabs
acetaminophen 500 mg tablet 1,000 mg PO HS 08/14/23 08/14/23
(Tylenol Extra Strength)
cyanocobalamin (vitamin B-12) 1,000 mcg IM WE 08/14/23 08/14/23
1,000 mcg/mL injection solution
prednisone 50 mg tablet 70 mg PO DAILY 08/14/23 08/14/23
sulfamethoxazole 800 1 tab PO MOWEFR@0800 08/14/23 08/14/23
mg-trimethoprim 160 mg tablet
(Bactrim DS)
Review of Systems
-
A 12 point ROS was completed and negative except as noted: Yes
Physical Exam
Vital Signs
Vital Signs
Temp Pulse Resp BP Pulse Ox
97.7 F 79 11 108/60 96
08/14/23 06:25 08/14/23 08:45 08/14/23 08:45 08/14/23 08:00 08/14/23 06:35
Physical Exam
General: Well Developed, Well Nourished and No Apparent Distress
HEENT: NormoCephalic, Anicteric, Moist mucous membranes and Other (Ecchymosis on right neck)
Respiratory: Clear
Cardiac: S1/S2 and Regular Rhythm
GI: Soft, Non Tender, Non Distended and Normal Bowel Sounds
Musculoskeletal: No Clubbing, No Cyanosis and Other (Right leg shortened and externally rotated)
Skin: Warm and Dry
Neuro: Awake, Alert and Oriented
Psych: Calm
Laboratory Results
-
08/14/23 07:01
08/14/23 07:01
Impression/Plan
-
#Acute right periprosthetic proximal femur fracture
Appreciate orthopedic surgery input, recommend conservative management with PT, pain control
PT�weightbearing as tolerated on walker
NO active/passive abduction or adduction (as this will put stress on the fracture).
#Hypokalemia
Replete, magnesium normal
Recheck a.m. labs
#Thrombocytopenia
Consult hematology
#Chronic megaloblastic anemia
Check B12/folic acid
Trend hemoglobin
#History of CHF
Hold Lasix for now
Monitor fluid status, trend weights
#Pulmonary hypertension
Continue Ambrisentan, sildenafil
#Stage III chronic kidney disease
Trend creatinine
#Hyponatremia
Mild, monitor
#Lupus/scleroderma
#Minimal-change kidney disease
Continue prednisone
#Gastroesophageal reflux disease
Continue PPI
DVT prophylaxis�low-dose subcu Lovenox
Full code
Total time spent to see the patient on the floor, examine the patient, review data and lab results, discuss treatment plan with patient, nursing staff around 76 minutes.
[2023-08-14] MEDS: TYLENOL 1000 MG PO ×3 (10:15→21:18)
--- NOTE | 2023-08-14 10:41 | W.PN.UPDATE ---
Addendum entered and electronically signed by Eren Rodriguez MD 08/15/23 09:45:
Patient does not require surgical treatment at this time. We will continue to follow her post-hospitalization in the office.
Original Note:
Update Note
Progress Note Update
Full Dictation#[id number]
73 y/o white female with a mechanical fall at home which has resulted in a RIGHT periprosthetic proximal femur fracture (greater trochanter). Prosthesis appears well seeded. Hx of this Right HOMAR back in 2007 (Michael). Also Hx of Left HOMAR in the
remote past. Fortunately this is a NONoperative issue, which was discussed with the patient. She will be admitted to the Hospitalist service. Appreciate their care. Will recommend PT/OT and CM consult for disposition. May be WBAT on walker. NO
active/passive abduction or adduction (as this will put stress on the fracture). Will follow for the next day or 2 to assure she is doing well. Upon D/c would recommend a 1-2 week outpatient follow-up for xrays to assure no fracture displacement.
She understands fracture will take about 6 weeks to heal and at that point we will progress her activity.
*This patient was seen in tandem with Dr. Rodriguez
--- NOTE | 2023-08-14 15:42 | CM ---
Addendum entered by Sara Pardo 08/14/23 16:02:
Per patient her spouse goes to adult daycare 4 days a week at [employer] [employer]
Original Note:
manager hardware reviewed patient's chart and met with patient and patient lives with with her spouse in a multilevel home, patient's spouse with dementia and stays in in law suite, patient was independent with adl's and ambulation, no dme, patient
drives, patient was asking about assisted living, shelter case manager explained that Assisted Livings are Private pay, but patient may qualify for skilled placement. Patient states that she could not afford assisted Living, shelter case manager provided a list of
care givers, assisted Living facilities and prison facilities.
Pharmacy [facility]
PCP: Nataliia Mobley
Plan; Await PT/OT evaluation for discharge planning for patient.
[2023-08-14] MEDS: PROTONIX 40 MG PO (17:46)
[2023-08-14] MEDS: DELTASONE 70 MG PO (17:46)
[2023-08-14] MEDS: NON-FORMULARY ITEM 5 MG PO (17:47)
[2023-08-14] MEDS: REVATIO 20 MG PO ×2 (17:47→21:18)
[2023-08-14] MEDS: LOVENOX 30 MG SC (17:52)
[2023-08-14] MEDS: LIPITOR 10 MG PO (21:18)
[2023-08-15 06:00] VITALS: BMI 26.0
[2023-08-15 07:22] VITALS: BP 110/68
[2023-08-15 07:47] LABS: Hematocrit 22.3 % (37.0-47.0); Hemoglobin 7.5 g/dL (12.0-16.0); Mean Corp Hgb Conc. 33.6 g/dL (33.0-37.0); Mean Corpuscular Hgb 34.1 pg (27.0-31.0); Mean Corpuscular Volume 101.4 fL (81.0-99.0); Mean Platelet Volume 10.5 fL (7.4-10.4); Platelet Count 51 10^3/uL (130-400); Red Cell Dist. Width 19.2 % (11.5-14.5); White Blood Cell Count 8.4 10^3/uL (4.8-10.8)
[2023-08-15 08:33] LABS: ALT (SGPT) 19 U/L (0-35); AST (SGOT) 19 U/L (14-36); Alkaline Phosphatase 72 U/L (38-126); Blood Urea Nitrogen 25 mg/dl (7-17); Calcium 8.9 mg/dl (8.4-10.2); Carbon Dioxide 25 mmol/L (22-30); Chloride 100 mmol/L (98-107); Direct Bilirubin 0.2 mg/dl (0.0-0.4); Estimated Creatinine Clearance 47 ml/min; Glucose 135 mg/dl (70-99); Iron 68 ug/dl (37-170); Magnesium 2.3 mg/dl (1.6-2.3); Percent Saturation 30 % (20-50); Potassium 4.3 mmol/L (3.5-5.1); Sodium 131 mmol/L (135-145); Total Bilirubin 0.9 mg/dl (0.2-1.3); Total Iron Binding Capacity 225 ug/dl (265-497); Total Protein 4.8 g/dl (6.3-8.2); eGFR > 60.00
[2023-08-15 08:47] LABS: Ferritin 59.4 ng/ml (11.1-264.0)
[2023-08-15] MEDS: TYLENOL 1000 MG PO ×3 (09:05→21:09)
[2023-08-15] MEDS: FEOSOL 325 MG PO (09:06)
[2023-08-15] MEDS: DELTASONE 70 MG PO (09:06)
[2023-08-15] MEDS: LASIX 60 MG PO (09:06)
[2023-08-15] MEDS: MIRALAX PO (09:07)
[2023-08-15] MEDS: REVATIO 20 MG PO ×3 (09:07→21:09)
[2023-08-15] MEDS: NON-FORMULARY ITEM 5 MG PO (09:07)
--- NOTE | 2023-08-15 09:12 | W.PN.HOSP.TC ---
Today's Communication/Plan
-
see bold
Assessment / Plan
Assessment / Plan
HPI: 73-year-old female with a past medical history of minimal-change kidney disease, lupus/scleroderma overlap, CHF, hypertension, and hyperlipidemia presents with a mechanical fall. Patient reports losing her balance in the morning, and fell.
Denies loss of consciousness, denies hitting her head. She did hit her neck, and has a bruise. No fever. No chest pain, no shortness of breath. 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
#Acute right periprosthetic proximal femur fracture
Appreciate orthopedic surgery input, recommend conservative management with PT, pain control
PT�weightbearing as tolerated on walker
NO active/passive abduction or adduction (as this will put stress on the fracture).
PT recommend short-term rehab
#Hypokalemia
Repleted and resolved, magnesium normal
#Thrombocytopenia
Consult hematology
#Chronic megaloblastic anemia
B12/folic acid normal
Trend hemoglobin, transfuse for hemoglobin less than 7.0
#History of CHF
Continue Lasix for now
Monitor fluid status, trend weights
#Hyponatremia
Fluid restrict, check TSH/free T4, a.m. cortisol
#Right neck ecchymosis
Monitor
#Pulmonary hypertension
Continue Ambrisentan, sildenafil
#Stage III chronic kidney disease
Trend creatinine
#Lupus/scleroderma
#Minimal-change kidney disease
Continue prednisone
#Gastroesophageal reflux disease
Continue PPI
DVT prophylaxis�SCDs due to worsening thrombocytopenia
Full code
Total time spent to see the patient on the floor, examine the patient, review data and lab results, discuss treatment plan with patient, nursing staff around 51 minutes.
Physical Exam
General: Well Developed, Well Nourished and No Apparent Distress
HEENT: NormoCephalic, Anicteric, Moist mucous membranes and Other (Ecchymosis on right neck)
Respiratory: Clear
Cardiac: S1/S2 and Regular Rhythm
GI: Soft, Non Tender, Non Distended and Normal Bowel Sounds
Musculoskeletal: No Clubbing, No Cyanosis and Other (Right leg shortened and externally rotated)
Skin: Warm and Dry
Neuro: Awake, Alert and Oriented
Psych: Calm
Anticipated Discharge: 24 - 48 hours
Subjective/Interval History
-
Date of Service: August 15, 2023
Patient reports her right hip pain is tolerable. No fever, no chest pain, no shortness of breath.
Objective Data
-
Labs:
Laboratory Results
08/15/23
06:37
WBC 8.4
Hgb 7.5 L
Hct 22.3 L
Plt Count 51 L D
Sodium 131 L
Potassium 4.3 D
Chloride 100
Carbon Dioxide 25
BUN 25 H
Creatinine 0.9
Glucose 135 H
Calcium 8.9
Total Bilirubin 0.9
AST 19
ALT 19
Alkaline Phosphatase 72
Vital Signs:
Vital Signs
Temp Pulse Resp BP Pulse Ox
98.3 F 101 18 90/58 100
08/14/23 23:38 08/14/23 23:38 08/14/23 23:38 08/14/23 23:38 08/14/23 23:38
I&O
08/14/23 08/15/23 08/16/23
06:59 06:59 06:59
Output Total 100 / 100
Balance -100 / -100
[2023-08-15 09:19] LABS: Vitamin B12 254 pg/ml (239-931)
[2023-08-15 10:39] VITALS: BP 106/58; BP 106/66; PULSE 120
[2023-08-15 10:40] VITALS: BP 106/58; BP 106/66; PULSE 120
--- NOTE | 2023-08-15 12:26 | CM ---
manager investigations spoke with patient and son, Juan and family again asking for help with placing patient's spouse at home, case loader operator reviewed options and provided a contact at [employer] [facility] [employer] to assist family in the community. manager investigations reviewed
physical therapy notes and spoke with patient and recommendation is for skilled placement options reviewed and patient has selected [facility], referral sent to [facility].
Plan; Skilled placement at [facility] if accepted.
[2023-08-15 15:00] VITALS: BP 103/64
[2023-08-15] MEDS: PROTONIX 40 MG PO (17:59)
[2023-08-15] MEDS: LIPITOR 10 MG PO (21:09)
--- NOTE | 2023-08-15 22:40 | CON.ONC ---
Impression
Impression
Acquired Bicytopenia--
Plan
Plan
wide differential including med reaction ie BACTRIM vs immune though less likely on current prednisone dose vs B12/folate deficiency; hypersplenism excluded with normal spleen size-- if all reversible causes excluded then BMBX needed to exclude stem
cell disorder
Patient History
History of Present Illness
Pleasant 73 yo WF with hx of minimally symptomatic scleroderma not requiring intervention on 2nd + month of high dose prednisone therapy for minimal change disease found with new thrombocytopenia during w/u for traumatic femur fracture R thigh
outside the area of the metal stem.
Past-Medical/Surgical History
Bilateral total hip arthroplasty
Hysterectomy
Bladder surgery
Cataract surgery
Minimal-change kidney disease, lupus/scleroderma overlap, CHF, hypertension, hyperlipidemia, pulmonary hypertension, mitral regurgitation, gastroesophageal reflux disease, osteoarthritis
Patient Medication
�Medication �Instructions �Recorded �Confirmed �Last Taken �Type
esomeprazole magnesium 20 mg 20 mg PO QPM GERD 03/10/22 08/14/23 08/13/23 History
capsule,delayed release (Nexium)
ferrous sulfate 325 mg (65 mg 325 mg PO DAILY Supplement 03/10/22 08/14/23 08/13/23 History
iron) tablet (Iron (ferrous
sulfate))
simvastatin 20 mg tablet 20 mg PO HS High cholesterol 03/10/22 08/14/23 08/13/23 History
cranberry extract 200 mg capsule 200 mg PO DAILY Supplement 09/10/22 08/14/23 08/13/23 History
(Ellura)
furosemide 40 mg tablet (Lasix) 60 mg PO DAILY Fluid 03/26/23 08/14/23 08/13/23 History
Retention/Swelling
sildenafil (pulm.hypertension) 20 20 mg PO TID pulmonary hypertension 05/24/23 08/14/23 08/13/23 History
mg tablet
ambrisentan 5 mg tablet 5 mg PO DAILY 05/25/23 08/14/23 08/13/23 History
metoprolol succinate 25 mg 12.5 mg (1/2 x 25 mg) PO DAILY 30 06/01/23 08/14/23 08/13/23 Rx
tablet,extended release 24 hr days #15 tabs
acetaminophen 500 mg tablet 1,000 mg PO HS 08/14/23 08/14/23 08/13/23 History
(Tylenol Extra Strength)
cyanocobalamin (vitamin B-12) 1,000 mcg IM WE 08/14/23 08/14/23 08/09/23 History
1,000 mcg/mL injection solution
prednisone 50 mg tablet 70 mg PO DAILY 08/14/23 08/14/23 08/13/23 History
sulfamethoxazole 800 1 tab PO MOWEFR@0800 08/14/23 08/14/23 08/13/23 History
mg-trimethoprim 160 mg tablet
(Bactrim DS)
Active Medications
Generic Name Dose Route Start Last Admin
Trade Name Gigi PRN Reason Stop Dose Admin
Acetaminophen 1,000 mg 08/14/23 16:00 08/15/23 21:09
Acetaminophen 500 Mg Tablet PO 09/11/23 15:59 1,000 mg
TID ELIZABETH Administration
Atorvastatin Calcium 10 mg 08/14/23 22:00 08/15/23 21:09
Atorvastatin (Lipitor) 10 Mg Tablet PO 09/11/23 21:59 10 mg
HS ELIZABETH Administration
Ferrous Sulfate 325 mg 08/15/23 08:00 08/15/23 09:06
Ferrous Sulfate 325 Mg Tablet PO 09/12/23 07:59 325 mg
DAILY ELIZABETH Administration
Furosemide 60 mg 08/15/23 08:00 08/15/23 09:06
Furosemide 40 Mg Tablet PO 09/12/23 07:59 60 mg
DAILY ELIZABETH Administration
Ambrisentan 5 Mg 0 mg 08/14/23 16:45 08/15/23 09:07
Tablet Po Daily PO 09/11/23 16:44 5 mg
DAILY ELIZABETH Administration
Ondansetron HCl 4 mg 08/14/23 15:01
Ondansetron 4 Mg/2 Ml Vial IV 09/11/23 15:00
Q6HPRN PRN
nausea and vomiting
Oxycodone HCl 5 mg 08/14/23 15:01
Oxycodone 5 Mg Regular Release Tablet PO 08/28/23 15:00
Q4HPRN PRN
breakthrough pain
Pantoprazole Sodium 40 mg 08/14/23 18:00 08/15/23 17:59
Pantoprazole 40 Mg Delayed Release Tablet PO 09/11/23 17:59 40 mg
QPM ELIZABETH Administration
Polyethylene Glycol 17 grams 08/15/23 08:00 08/15/23 09:07
Polyethylene Glycol Powder 17 Grams Packet PO 09/12/23 07:59 Not Given
DAILY ELIZABETH
Prednisone 70 mg 08/14/23 15:01 08/15/23 09:06
Prednisone 20 Mg Tablet PO 09/11/23 15:00 70 mg
DAILY ELIZABETH Administration
Sildenafil Citrate 20 mg 08/14/23 16:00 08/15/23 21:09
Sildenafil 20 Mg Tablet PO 09/11/23 15:59 20 mg
TID ELIZABETH Administration
Sodium Chloride 0 flush 08/14/23 16:00
Sodium Chloride 0.9% (Flush) Syringe IV 09/11/23 15:59
PER PROTOCOL ELIZABETH
Trimethoprim/Sulfamethoxazole 1 tablet 08/16/23 08:00
Sulfamethoxazole (800 Mg)/Trimethoprim (160 Mg) Tablet PO
MOWEFR@0800 ELIZABETH
Review of Systems
-
History Source: Patient
All Other Systems: Reviewed and Negative
Physical Exam
-
General: No Apparent Distress
HEENT: Moist Mucous Membranes
Cardiology: Normal Sinus Rhythm
Pulmonary: Clear
GI: Normal Bowel Sounds
Musculoskeletal: No Clubbing, No Cyanosis and No Edema
Neurology: Non Focal
Hematologic / Lymphatic: No Petechiae
Labs
Lab Results
WBC 8.4 10^3/uL (4.8-10.8) 08/15/23 06:37
RBC 2.20 10^6/uL (4.20-5.40) L 08/15/23 06:37
Hgb 7.5 g/dL (12.0-16.0) L 08/15/23 06:37
Hct 22.3 % (37.0-47.0) L 08/15/23 06:37
MCV 101.4 fL (81.0-99.0) H 08/15/23 06:37
MCH 34.1 pg (27.0-31.0) H 08/15/23 06:37
MCHC 33.6 g/dL (33.0-37.0) 08/15/23 06:37
RDW 19.2 % (11.5-14.5) H 08/15/23 06:37
Plt Count 51 10^3/uL (130-400) L D 08/15/23 06:37
MPV 10.5 fL (7.4-10.4) H 08/15/23 06:37
Abs Immat Gran (auto) 0.4 10^3/uL (0-0.05) H 08/14/23 07:01
Absolute Neuts (auto) 5.2 10^3/uL (1.4-6.5) 08/14/23 07:01
Absolute Lymphs (auto) 0.9 10^3/uL (1.2-3.4) L 08/14/23 07:01
Absolute Monos (auto) 0.5 10^3/uL (0.1-0.6) 08/14/23 07:01
Absolute Eos (auto) 0.0 10^3/uL (0-0.7) 08/14/23 07:01
Absolute Basos (auto) 0.0 10^3/uL (0-0.2) 08/14/23 07:01
Immature Gran % 6.2 % (0-0.5) H 08/14/23 07:01
Neutrophils % 74.4 % (42.2-75.2) 08/14/23 07:01
Lymphocytes % 12.6 % (20.5-51.1) L 08/14/23 07:01
Monocytes % 6.6 % (1.7-9.3) 08/14/23 07:01
Eosinophils % 0.1 % (0-6) 08/14/23 07:01
Basophils % 0.1 % (0-2) 08/14/23 07:01
Creatinine 0.9 mg/dL (0.6-1.0) 08/15/23 06:37
Vital Signs
Vital Signs
Temp Pulse Resp BP Pulse Ox
98.1 F 126 18 103/64 97
08/15/23 15:00 08/15/23 15:00 08/15/23 15:00 08/15/23 15:00 08/15/23 15:00
[2023-08-15 23:25] VITALS: BP 104/61
[2023-08-16 06:00] VITALS: BMI 26.8
[2023-08-16 07:00] VITALS: BP 115/50
[2023-08-16 07:29] LABS: % Basophils 0.1 % (0-2); % Immature Granulocytes 6.9 % (0-0.5); % Monocytes 6.3 % (1.7-9.3); % Neutrophils 78.7 % (42.2-75.2); Absolute Immature Granulocytes 0.7 10^3/uL (0-0.05); Absolute Lymphocytes 0.8 10^3/uL (1.2-3.4); Absolute Monocytes 0.6 10^3/uL (0.1-0.6); Mean Corp Hgb Conc. 32.2 g/dL (33.0-37.0); Mean Corpuscular Hgb 33.5 pg (27.0-31.0); Mean Corpuscular Volume 104.1 fL (81.0-99.0); Mean Platelet Volume 11.1 fL (7.4-10.4); Nucleated Red Blood Cells % 0.3 %; Platelet Count 56 10^3/uL (130-400); Red Blood Cell Count 1.94 10^6/uL (4.20-5.40); Red Cell Dist. Width 19.2 % (11.5-14.5); Reticulocyte Count 5.9 % (0.4-2.8); White Blood Cell Count 10.2 10^3/uL (4.8-10.8)
[2023-08-16 07:32] LABS: Hematocrit 20.2 % (37.0-47.0); Hemoglobin 6.5 g/dL (12.0-16.0)
--- NOTE | 2023-08-16 07:38 | W.PN.HOSP.TC ---
Today's Communication/Plan
-
Transfuse 1 unit of packed red blood cells
Assessment / Plan
Assessment / Plan
HPI: 73-year-old female with a past medical history of minimal-change kidney disease, lupus/scleroderma overlap, CHF, hypertension, and hyperlipidemia presents with a mechanical fall. Patient reports losing her balance in the morning, and fell.
Denies loss of consciousness, denies hitting her head. She did hit her neck, and has a bruise. No fever. No chest pain, no shortness of breath. 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
#Acute right periprosthetic proximal femur fracture
Appreciate orthopedic surgery input, recommend conservative management with PT, pain control
PT�weightbearing as tolerated on walker
NO active/passive abduction or adduction (as this will put stress on the fracture).
PT recommend short-term rehab
#Acute blood loss anemia from hip fracture and ecchymosis of right neck superimposed on chronic megaloblastic anemia
Hemoglobin 6.5 today, transfuse 1 unit of packed red blood cells
Hematology following, follow-up on methylmalonic acid
#Thrombocytopenia
Seen by hematology, differential diagnosis includes medication reaction to Bactrim, versus immune mediated, versus B12/folate deficiency
Need to rule out stem cell disorder, follow-up on further recommendations
#History of CHF
Continue Lasix for now
Monitor fluid status, trend weights
#Hyponatremia
Fluid restrict, check TSH/free T4, a.m. cortisol
#Hypokalemia
Repleted and resolved, magnesium normal
#Chronic urinary retention with chronic Savage upon admission
Has had Savage since May 2023
#Right neck ecchymosis
Monitor
#Coccyx pain
Likely from trauma
Patient declines Sacral x-ray
Continue pain meds
#Pulmonary hypertension
Continue Ambrisentan, sildenafil
#Stage III chronic kidney disease
Trend creatinine
#Lupus/scleroderma
#Minimal-change kidney disease
Continue prednisone
#Gastroesophageal reflux disease
Continue PPI
#Vitamin D 12 deficiency
Continue vitamin B12 injections every week
DVT prophylaxis�SCDs due to worsening thrombocytopenia
Full code
Total time spent to see the patient on the floor, examine the patient, review data and lab results, discuss treatment plan with patient, nursing staff around 51 minutes.
Physical Exam
General: Well Developed, Well Nourished and No Apparent Distress
HEENT: NormoCephalic, Anicteric, Moist mucous membranes and Other (Ecchymosis on right neck)
Respiratory: Clear
Cardiac: S1/S2 and Regular Rhythm
GI: Soft, Non Tender, Non Distended and Normal Bowel Sounds
Musculoskeletal: No Clubbing, No Cyanosis and Other (Right leg shortened and externally rotated)
Skin: Warm and Dry
Neuro: Awake, Alert and Oriented
Psych: Calm
Anticipated Discharge: 24 - 48 hours
Subjective/Interval History
-
Date of Service: August 16, 2023
Patient reports feeling tired. She also has some coccyx pain. No fever, no vomiting.
Objective Data
-
Labs:
Laboratory Results
08/16/23
07:04
WBC 10.2
Hgb 6.5 L*
Hct 20.2 L*
Plt Count 56 L
Sodium Pending
Potassium Pending
Chloride Pending
Carbon Dioxide Pending
BUN Pending
Creatinine Pending
Glucose Pending
Calcium Pending
Vital Signs:
Vital Signs
Temp Pulse Resp BP Pulse Ox
97.5 F 104 16 104/61 97
08/15/23 23:25 08/15/23 23:25 08/15/23 23:25 08/15/23 23:25 08/15/23 23:25
I&O
08/15/23 08/16/23 08/17/23
06:59 06:59 06:59
Intake Total 1020 / 1020 240 / 240
Output Total 100 / 100 1025 / 1025 775 / 775
Balance -100 / -100 -5 / -5 -535 / -535
[2023-08-16 08:04] LABS: Blood Urea Nitrogen 38 mg/dl (7-17); Calcium 9.1 mg/dl (8.4-10.2); Carbon Dioxide 29 mmol/L (22-30); Chloride 98 mmol/L (98-107); Estimated Creatinine Clearance 53 ml/min; Glucose 106 mg/dl (70-99); Potassium 4.2 mmol/L (3.5-5.1); Sodium 133 mmol/L (135-145); eGFR > 60.00
[2023-08-16] MEDS: DELTASONE 70 MG PO (08:05)
[2023-08-16] MEDS: MIRALAX 17 GRAMS PO (08:06)
[2023-08-16] MEDS: TYLENOL 1000 MG PO ×3 (08:06→21:25)
[2023-08-16] MEDS: LASIX 60 MG PO (08:06)
[2023-08-16] MEDS: REVATIO 20 MG PO ×3 (08:07→21:25)
[2023-08-16] MEDS: NON-FORMULARY ITEM 5 MG PO (08:07)
[2023-08-16] MEDS: FEOSOL 325 MG PO (08:07)
[2023-08-16 08:13] LABS: Hemoglobin 6.5 g/dL (12.0-16.0)
[2023-08-16] MEDS: BACTRIM DS 800 MG/160 MG 1 TABLET PO (08:37)
[2023-08-16 10:58] VITALS: BP 93/47
[2023-08-16 11:14] VITALS: BP 96/61
[2023-08-16 14:49] VITALS: BP 106/63
--- NOTE | 2023-08-16 14:52 | CM ---
OMAIRA reviewed pt with Dr Vallejo- CHRISTY 48 hours Wed 08/17
Update provided to [facility] via [facility]- referral remains pending
Discharge Disposition- SNF ([facility] pending)
[2023-08-16 15:00] VITALS: BP 113/67
[2023-08-16] MEDS: CYANOCOBALAMIN 1000 MCG IM (15:53)
[2023-08-16] MEDS: PROTONIX 40 MG PO (17:36)
[2023-08-16] MEDS: LIPITOR 10 MG PO (21:25)
--- NOTE | 2023-08-16 22:09 | W.PN.ONC2 ---
Today's Communication / Plan
-
Transfusion support
Myeloma panel, hemolysis labs
Anticipate need for bone marrow biopsy as outpt.
Pt happy to follow up with us after hospital D/C.
Impression
Impression
Anemia, acute on chronic, slowly progressive over years
Thrombocytopenia
B12 deficiency
Plan
Plan
Pt has started B12 supplement, currently being treated weekly.
Send with AM labs: SPEP, free lights chains, hemolysis labs.
Suspect she will need bone marrow biopsy for bi-cytopenia.
Transfusion support if symptomatic anemia.
Subjective/Objective
Chief Complaint
Heme/Onc follow up of anemia, thromboctyopenia
Subjective
Denies new complaint. Acknowledges anemia as a long-standing problem for her but has never seen a Medical Sociologist in the past.
Vital Signs:
Vital Signs
Temp Pulse Resp BP Pulse Ox
97.9 F 117 16 113/67 96
08/16/23 15:00 08/16/23 15:00 08/16/23 15:00 08/16/23 15:00 08/16/23 15:00
Lab Results:
Laboratory Data
WBC 10.2 10^3/uL (4.8-10.8) 08/16/23 07:04
Hgb 6.5 g/dL (12.0-16.0) L* 08/16/23 07:51
Plt Count 56 10^3/uL (130-400) L 08/16/23 07:04
eGFR > 60.00 08/16/23 07:04
Physical Exam
Awake, alert, non-toxic appearing
[2023-08-16 22:55] LABS: Transferrin 186 mg/dL (200-360)
[2023-08-16 23:40] VITALS: BP 107/69
[2023-08-17 00:22] LABS: LDH 227 U/L (120-246)
[2023-08-17 06:00] VITALS: BMI 25.9
--- NOTE | 2023-08-17 06:14 | W.PN.HOSP.TC ---
Today's Communication/Plan
-
monitor Hgb Plt
PMR eval
PT/OT
pain control
Assessment / Plan
Assessment / Plan
HPI: 73-year-old female with a past medical history of minimal-change kidney disease, lupus/scleroderma overlap, CHF, hypertension, and hyperlipidemia presents with a mechanical fall. Patient reports losing her balance in the morning, and fell.
Denies loss of consciousness, denies hitting her head. She did hit her neck, and has a bruise. No fever. No chest pain, no shortness of breath. 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
#Acute right periprosthetic proximal femur fracture
Appreciate orthopedic surgery input, recommend conservative management with PT, pain control
PT�weightbearing as tolerated on walker
NO active/passive abduction or adduction (as this will put stress on the fracture).
PT/OT recommended Acute Rehab
PMR eval requested
#Acute blood loss anemia from hip fracture and ecchymosis of right neck superimposed on chronic megaloblastic anemia
#B12 deficiency
Hemoglobin 6.5 today, transfuse 1 unit of packed red blood cells, responded appropriately
Hematology following, follow-up on methylmalonic acid
cont B12 supplementation
#Thrombocytopenia
Seen by hematology, differential diagnosis includes medication reaction to Bactrim, versus immune mediated, versus B12/folate deficiency
Hematology outpt follow up for possible bone marrow bx recommended
#History of CHF
Continue Lasix for now
Monitor fluid status, trend weights
#Hyponatremia
Fluid restrict, check TSH/free T4, a.m. cortisol
#Hypokalemia
Repleted and resolved, magnesium normal
#Chronic urinary retention with chronic Savage upon admission
Has had Savage since May 2023
#Right neck ecchymosis
Monitor
#Coccyx pain
Likely from trauma
Patient declines Sacral x-ray
Continue pain meds
#Pulmonary hypertension
Continue Ambrisentan, sildenafil
#Stage III chronic kidney disease
Trend creatinine
#Lupus/scleroderma
#Minimal-change kidney disease
Continue prednisone
#Gastroesophageal reflux disease
Continue PPI
DVT prophylaxis�SCDs due to worsening thrombocytopenia
Full code
Total time spent to see the patient on the floor, examine the patient, review data and lab results, discuss treatment plan with patient, nursing staff around 55 minutes.
Physical Exam
General: Well Developed, Well Nourished and No Apparent Distress
HEENT: NormoCephalic, Anicteric, Moist mucous membranes
Respiratory: Clear
Cardiac: S1/S2 and Regular Rhythm
GI: Soft, Non Tender, Non Distended and Normal Bowel Sounds
Musculoskeletal: No Clubbing, No Cyanosis, No edema
Skin: Warm and Dry
Neuro: Awake, Alert and Oriented
Psych: Calm
Anticipated Discharge: 24 - 48 hours
Subjective/Interval History
-
Date of Service: August 17, 2023
Seen and examined at bedside in no acute distress sitting up comfortably in chair. Denies new acute issues at this time. Reports feeling well. Pain controlled with current regimen. Son Juan present during evaluation.
Objective Data
-
Labs:
Laboratory Results
08/17/23
06:00
WBC Pending
Hgb Pending
Hct Pending
Plt Count Pending
Sodium Pending
Potassium Pending
Chloride Pending
Carbon Dioxide Pending
BUN Pending
Creatinine Pending
Glucose Pending
Calcium Pending
Vital Signs:
Vital Signs
Temp Pulse Resp BP Pulse Ox
97.9 F 93 18 107/69 96
08/16/23 23:40 08/16/23 23:40 08/16/23 23:40 08/16/23 23:40 08/16/23 23:40
I&O
08/15/23 08/16/23 08/17/23
06:59 06:59 06:59
Intake Total 1020 / 1020 1939
Output Total 100 / 100 1025 / 1025 2475 / 2475
Balance -100 / -100 -5 / -5 -535 / -535
[2023-08-17 07:05] LABS: Hematocrit 22.7 % (37.0-47.0); Hemoglobin 7.7 g/dL (12.0-16.0); Mean Corp Hgb Conc. 33.9 g/dL (33.0-37.0); Mean Corpuscular Hgb 32.4 pg (27.0-31.0); Mean Corpuscular Volume 95.4 fL (81.0-99.0); Mean Platelet Volume 10.5 fL (7.4-10.4); Platelet Count 56 10^3/uL (130-400); Red Blood Cell Count 2.38 10^6/uL (4.20-5.40); Red Cell Dist. Width 22.2 % (11.5-14.5); White Blood Cell Count 11.9 10^3/uL (4.8-10.8)
[2023-08-17 07:30] LABS: Blood Urea Nitrogen 40 mg/dl (7-17); Calcium 9.1 mg/dl (8.4-10.2); Carbon Dioxide 32 mmol/L (22-30); Chloride 96 mmol/L (98-107); Estimated Creatinine Clearance 43 ml/min; Glucose 93 mg/dl (70-99); Potassium 3.9 mmol/L (3.5-5.1); Sodium 132 mmol/L (135-145); eGFR > 60.00
[2023-08-17 07:40] VITALS: BP 114/61
[2023-08-17] MEDS: NON-FORMULARY ITEM 5 MG PO (08:25)
[2023-08-17] MEDS: DELTASONE 70 MG PO (08:25)
[2023-08-17] MEDS: LASIX 60 MG PO (08:27)
[2023-08-17] MEDS: FEOSOL 325 MG PO (08:27)
[2023-08-17] MEDS: MIRALAX PO ×2 (08:28→09:26)
[2023-08-17] MEDS: REVATIO 20 MG PO ×3 (08:28→21:22)
[2023-08-17] MEDS: TYLENOL 1000 MG PO ×3 (08:28→21:22)
--- NOTE | 2023-08-17 12:44 | W.PN.ONC ---
Today's Communication / Plan
-
Will arrange outpatient hematology f/u to review pending labs and consider further work-up, possibly to include bone marrow biopsy, which we discussed today
Monitor CBC
Transfusion support if symptomatic anemia.
Impression
Impression
Anemia, acute on chronic, slowly progressive over years
Thrombocytopenia
B12 deficiency
Plan
Plan
Will arrange outpatient hematology f/u to review pending labs and consider further work-up, possibly to include bone marrow biopsy, which we discussed today
Monitor CBC
Transfusion support if symptomatic anemia.
Subjective/Objective
Subjective/Objective
no new complaints, feels tired
Vital Signs:
Vital Signs
Temp Pulse Resp BP Pulse Ox
97.9 F 102 18 114/61 97
08/17/23 07:40 08/17/23 07:40 08/17/23 07:40 08/17/23 07:40 08/17/23 07:50
Lab Results:
Laboratory Data
WBC 11.9 10^3/uL (4.8-10.8) H 08/17/23 06:54
Hgb 7.7 g/dL (12.0-16.0) L 08/17/23 06:54
Plt Count 56 10^3/uL (130-400) L 08/17/23 06:54
eGFR > 60.00 08/17/23 06:54
--- NOTE | 2023-08-17 14:27 | CM ---
Chart reviewed and per physical therapy patient would benefit from acute rehab, acute rehab options reviewed and patient has selected [facility], referral sent to [facility] and PM&R consulted.
Plan; Await determination from [facility].
[2023-08-17 15:30] VITALS: BP 109/59
[2023-08-17] MEDS: VITAMIN B-12 1000 MCG PO (16:12)
--- NOTE | 2023-08-17 16:13 | CON.MR ---
Consultation
Consultation Request
Date/Time Consultation Performed: 08/17/23 1600
Performing Provider: Dr. Mendes
Reason for Consultation: Right hip fracture
Medical History
-
Chief Complaint: Right hip pain
History of Present Illness:
73-year-old female with a past medical history of minimal-change kidney disease, lupus/scleroderma overlap, CHF, hypertension, and hyperlipidemia admitted after a fall at home - losing her balance, but denied any dizziness or lightheadedness
prodrome. Denies loss of consciousness, denies hitting her head. She did hit her neck, and has a bruise. No fever. No chest pain, no shortness of breath. 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
Noted with a right grochanteric fracture, but seen by orthopedics and felt non-operative treatment required and WBAT with walker. Hospital course also notable with anemia, thrombocytopenia, and evaluated by heme-onc and requiring further outpatient
work up. Did have blood transfusion. BUN mildly elevated and Na 142.
Patient seen at bedside this afternoon. States only mild pain in the right hip and some 'soreness' in the thighs but did get up with therapy today and walked in the room. Denies any further radiation down lower limb, and no numbness or tingling, no
current dizziness or lightheadedness, no chest pain, no SOB.
Lives with but he has Dementia and she is the primary irrigation system operator. He is planned to go into a facility for further care. Lives in a 2 story home, but only 4 steps to enter and there is a in-law suite available to stay on the first floor.
Normally no use of cane, assistive device and independent for all mobility and activities.
Past Medical History: Minimal-change kidney disease, lupus/scleroderma overlap, CHF, hypertension, hyperlipidemia, pulmonary hypertension, mitral regurgitation, gastroesophageal reflux disease, osteoarthritis
Past Surgical History: Bilateral total hip arthroplasty, Hysterectomy, Bladder surgery, Cataract surgery
Social History
Functional Level Premorbidity:
Independent for all activities.
Current Funct Level: Ambulation, Transfer, UE/LE Dressing:
Min A transfer, min A ambulation 12' with RW.
Potential First Floor Set Up: Yes
Allergies / Home Medications
Allergy/AdvReac Type Severity Reaction Status Date / Time
No Known Allergies Allergy Verified 07/12/23 12:25
�Medication �Instructions �Recorded �Confirmed �Last Taken �Type
esomeprazole magnesium 20 mg 20 mg PO QPM GERD 03/10/22 08/14/23 08/13/23 History
capsule,delayed release (Nexium)
ferrous sulfate 325 mg (65 mg 325 mg PO DAILY Supplement 03/10/22 08/14/23 08/13/23 History
iron) tablet (Iron (ferrous
sulfate))
simvastatin 20 mg tablet 20 mg PO HS High cholesterol 03/10/22 08/14/23 08/13/23 History
cranberry extract 200 mg capsule 200 mg PO DAILY Supplement 09/10/22 08/14/23 08/13/23 History
(Ellura)
furosemide 40 mg tablet (Lasix) 60 mg PO DAILY Fluid 03/26/23 08/14/23 08/13/23 History
Retention/Swelling
sildenafil (pulm.hypertension) 20 20 mg PO TID pulmonary hypertension 05/24/23 08/14/23 08/13/23 History
mg tablet
ambrisentan 5 mg tablet 5 mg PO DAILY 05/25/23 08/14/23 08/13/23 History
metoprolol succinate 25 mg 12.5 mg (1/2 x 25 mg) PO DAILY 30 06/01/23 08/14/23 08/13/23 Rx
tablet,extended release 24 hr days #15 tabs
acetaminophen 500 mg tablet 1,000 mg PO HS 08/14/23 08/14/23 08/13/23 History
(Tylenol Extra Strength)
cyanocobalamin (vitamin B-12) 1,000 mcg IM WE 08/14/23 08/14/23 08/09/23 History
1,000 mcg/mL injection solution
prednisone 50 mg tablet 70 mg PO DAILY 08/14/23 08/14/23 08/13/23 History
sulfamethoxazole 800 1 tab PO MOWEFR@0800 08/14/23 08/14/23 08/13/23 History
mg-trimethoprim 160 mg tablet
(Bactrim DS)
Review Of Systems
-
History Source: Patient
All other systems: Negative unless noted
Constitutional: Reports No Symptoms
Eye: Reports No Symptoms
EENT: Reports No Symptoms
Respiratory: Reports No Symptoms
Cardiac: Reports No Symptoms
Abdomen/GI: Reports No Symptoms
: Reports No Symptoms
Musculoskeletal: Reports Joint Pain and Muscle Pain
Integumentary: Reports No Symptoms
Neurological: Reports No Symptoms
Psych: Reports No Symptoms
Endocrine: Reports No Symptoms
Hematologic/Lymphatic: Reports Other (Anemia)
Immunology: Reports No Symptoms
Physical Exam
Active Medications
Generic Name Dose Route Start Last Admin
Trade Name Freq PRN Reason Stop Dose Admin
Acetaminophen 1,000 mg 08/14/23 16:00 08/17/23 15:18
Acetaminophen 500 Mg Tablet PO 09/11/23 15:59 1,000 mg
TID ELIZABETH Administration
Atorvastatin Calcium 10 mg 08/14/23 22:00 08/16/23 21:25
Atorvastatin (Lipitor) 10 Mg Tablet PO 09/11/23 21:59 10 mg
HS ELIZABETH Administration
Cyanocobalamin 1,000 mcg 08/17/23 16:00
Cyanocobalamin 1,000 Mcg Tablet PO 09/14/23 15:59
DAILY ELIZABETH
Ferrous Sulfate 325 mg 08/15/23 08:00 08/17/23 08:27
Ferrous Sulfate 325 Mg Tablet PO 09/12/23 07:59 325 mg
DAILY ELIZABETH Administration
Furosemide 60 mg 08/15/23 08:00 08/17/23 08:27
Furosemide 40 Mg Tablet PO 09/12/23 07:59 60 mg
DAILY ELIZABETH Administration
Ambrisentan 5 Mg 0 mg 08/14/23 16:45 08/17/23 08:25
Tablet Po Daily PO 09/11/23 16:44 5 mg
DAILY ELIZABETH Administration
Ondansetron HCl 4 mg 08/14/23 15:01
Ondansetron 4 Mg/2 Ml Vial IV 09/11/23 15:00
Q6HPRN PRN
nausea and vomiting
Oxycodone HCl 5 mg 08/14/23 15:01
Oxycodone 5 Mg Regular Release Tablet PO 08/28/23 15:00
Q4HPRN PRN
breakthrough pain
Pantoprazole Sodium 40 mg 08/14/23 18:00 08/16/23 17:36
Pantoprazole 40 Mg Delayed Release Tablet PO 09/11/23 17:59 40 mg
QPM ELIZABETH Administration
Polyethylene Glycol 17 grams 08/15/23 08:00 08/17/23 09:26
Polyethylene Glycol Powder 17 Grams Packet PO 09/12/23 07:59 Not Given
DAILY ELIZABETH
Prednisone 70 mg 08/14/23 15:01 08/17/23 08:25
Prednisone 20 Mg Tablet PO 09/11/23 15:00 70 mg
DAILY ELIZABETH Administration
Sildenafil Citrate 20 mg 08/14/23 16:00 08/17/23 15:18
Sildenafil 20 Mg Tablet PO 09/11/23 15:59 20 mg
TID ELIZABETH Administration
Sodium Chloride 0 flush 08/14/23 16:00
Sodium Chloride 0.9% (Flush) Syringe IV 09/11/23 15:59
PER PROTOCOL ELIZABETH
Trimethoprim/Sulfamethoxazole 1 tablet 08/16/23 08:00 08/16/23 08:37
Sulfamethoxazole (800 Mg)/Trimethoprim (160 Mg) Tablet PO 1 tablet
MOWEFR@0800 ELIZABETH Administration
Vital Signs
Temp Pulse Resp BP Pulse Ox
97.9 F 102 18 114/61 97
08/17/23 07:40 08/17/23 07:40 08/17/23 07:40 08/17/23 07:40 08/17/23 07:50
Height 5 ft 3 in
Actual Weight 66.31 kg
Body Mass Index (BMI) 25.9
Physical Exam
Physical Exam:
General Appearance/Observation: Well-developed, well-nourished individual in no apparent distress. Sitting up in bedside chair
Pain/Comfort Assessment:03/03 in right lateral hip, no groin pain
Mood/Affect: Appropriate
Eyes: Conjunctiva/Lids: normal Pupils: pupils equal round and reactive to light and Accommodation
Ears/Nose/Throat: oral mucosa moist, throat clear. Lips/Teeth/Gums: normal
Neck: No muscle spasm or tenderness
Cardiovascular: Heart: regular, no murmur
Pulses: dorsalis pedis 2+ bilaterally
Respiratory: Respiratory Effort/Chest Expansion: normal Auscultation: Clear to auscultation bilaterally
Gastrointestinal: abdomen not tender, no distension, normal abdominal bowel sounds
Genitourinary: chronic Paetl
Rectal Exam: Deferred
Extremities: Edema: None Cyanosis: None Trophic changes: None
Neurology Exam:
Orientation: Alert, Oriented to self, Time, Place
Memory: Intact immediately and at 3 minutes
Higher cortical function
Speech: Intact
Repetition: Intact
Comprehension: Intact
Two step command: Intact
Naming: Intact
Cranial Nerves: Intact and symmetric
Sensory:
Light touch: Intact in bilateral upper and lower extremities
Reflexes:
Babinski: Downgoing bilaterally
Clonus: None
Amanda: Negative bilaterally
Cerebellar: Dysmetria/Ataxia: None
Musculoskeletal:
Motor: (Manual muscle scale 0-5)
Muscle SA EF WE EE FF FA HF KE DF EHL PF
Right 5 5 5 5 5 5 4 5 4+ 5 5
Left 5 5 5 5 5 5 4 5 4+ 5 5
Tone: Normal in all extremities
Range of Motion: Some pain wtih elevation with R hip - restricted with Abd/Add movements in right hip per ortho.
Lab Results
08/17/23 06:54
08/17/23 06:54
WBC 11.9 10^3/uL (4.8-10.8) H 08/17/23 06:54
Hgb 7.7 g/dL (12.0-16.0) L 08/17/23 06:54
Hct 22.7 % (37.0-47.0) L 08/17/23 06:54
MCV 95.4 fL (81.0-99.0) 08/17/23 06:54
Plt Count 56 10^3/uL (130-400) L 08/17/23 06:54
Sodium 132 mmol/L (135-145) L 08/17/23 06:54
Potassium 3.9 mmol/L (3.5-5.1) 08/17/23 06:54
Chloride 96 mmol/L (98-107) L 08/17/23 06:54
Carbon Dioxide 32 mmol/L (22-30) H 08/17/23 06:54
BUN 40 mg/dl (7-17) H 08/17/23 06:54
Creatinine 1.0 mg/dL (0.6-1.0) 08/17/23 06:54
eGFR > 60.00 08/17/23 06:54
Glucose 93 mg/dl (70-99) 08/17/23 06:54
Calcium 9.1 mg/dl (8.4-10.2) 08/17/23 06:54
Magnesium 2.3 mg/dl (1.6-2.3) 08/15/23 06:37
Total Bilirubin 0.9 mg/dl (0.2-1.3) 08/15/23 06:37
Direct Bilirubin 0.2 mg/dl (0.0-0.4) 08/15/23 06:37
AST 19 U/L (14-36) 08/15/23 06:37
ALT 19 U/L (0-35) 08/15/23 06:37
Alkaline Phosphatase 72 U/L (38-126) 08/15/23 06:37
Total Protein 4.8 g/dl (6.3-8.2) L 08/15/23 06:37
Albumin 3.0 g/dl (3.5-5.0) L 08/15/23 06:37
Diagnostic Results
As per HPI.
Comorbidities / Impairment Group
Comorbidities:
Anemia, thrombocytopenia
Impairment Group:
Right hip fracture
Assessment / Plan
Plan
Assessment:
73 year old female with old bilateral HOMAR, s/p fall with right trochanteric fracture, and non-operative treatment per orthopedics. WBAT with walker.
PM&R PT/OT to increase independence with ADLs, improve balance, coordination, endurance, strength, mobility, community reintegration, decreased burden of care on others and family education.
Hip fracture: Non-operative treatment. Pain control, hip precautions with abduction and adduction movement per orthopedics. Will need repeat hip xray in 1-2 weeks to follow up.
HTN: continue medications, monitor closely
CHF: stable on lasix for now. Monitor fluid status, weights
Pulmonary HTN: Ambrisentan, Sildenafil.
Hyponatremia: Follow for now.
Anemia: did have transfusion. Hematology following and recommended outpatient Heme-Onc follow up for further work up, myeloma work up in progress.
Skin: monitor for pressure sores/rashes/lesions.
Bladder: Chronic patel use - is on bactrim ABX.
CKD: BUN elevated but monitoring.
Pain: acetaminophen as needed.
DVT Prophylaxis: No chemoprophylaxis after large hematoma
Pulmonary: Incentive spirometry
Safety: Continue to reinforce assistance with all transfers.
Code Status: Full code
Dispo (date/plan/equipment needs): Home with family care. Social history reviewed.
Functional and Medical Goals: Modified Independent with ADL�s, ambulation, transfers
Summary
-
Things that must be addressed in Hospital prior to discharge:
1. Please Continue bedside PT/OT. WBAT.
2. Patient must be stable on oral pain medications.
3. Blood pressure must be less than 180 systolic and 100 diastolic for 24 hours before being stable for transfer to SNF/acute rehab.
4. Please comment on dvt chemoprophylaxis restrictions - holding with previous hematoma/blood loss with fall, but timing on potentially restarting?
Discharge Destination: Acute rehab when stable
Summary of recommendations:
- Discharge Destination: Acute rehab
Will continue to follow patient.
Thank you for allowing me to care for your patient. Please contact me with any questions or concerns.
Data Reviewed
-
Radiology: Report Reviewed by me
Labs: Labs Reviewed by me
Comments
-
This note was dictated using a voice recognition system. Please excuse any typographical errors from erp manager. If you believe there are any discrepancies, please notify our office.
[2023-08-17] MEDS: PROTONIX 40 MG PO (17:26)
[2023-08-17] MEDS: LIPITOR 10 MG PO (21:22)
[2023-08-17 23:36] LABS: Haptoglobin 244 mg/dL (30-200)
[2023-08-17 23:40] VITALS: BP 106/60
[2023-08-18] VITALS (7 sets, daily range): BP systolic 97–118; BP diastolic 55–70; BMI 26.3
--- NOTE | 2023-08-18 07:25 | W.PN.ONC2 ---
Today's Communication / Plan
-
Follow CBC.
Plans for discharge to acute care rehab noted.
Impression
Impression
Anemia, acute on chronic, slowly progressive over years
Thrombocytopenia
B12 deficiency
Traumatic right hip fracture -nonsurgical management
Plan
Plan
Will arrange outpatient hematology f/u to review pending labs including MMA and consider further work-up, possibly to include bone marrow biopsy.
Monitor CBC
Transfusion support if symptomatic anemia.
Subjective/Objective
Chief Complaint
ACS Heme Onc
Subjective
No complaints to report. Denies bleeding.
Vital Signs:
Vital Signs
Temp Pulse Resp BP Pulse Ox
97.3 F 95 18 106/60 98
08/17/23 23:40 08/17/23 23:40 08/17/23 23:40 08/17/23 23:40 08/17/23 23:40
Lab Results:
Laboratory Data
WBC 11.9 10^3/uL (4.8-10.8) H 08/17/23 06:54
Hgb 7.7 g/dL (12.0-16.0) L 08/17/23 06:54
Plt Count 56 10^3/uL (130-400) L 08/17/23 06:54
eGFR > 60.00 08/17/23 06:54
Physical Exam
HEENT: No Jaundice
Cardiology: S1 and S2
Pulmonary: Clear
GI: Soft
Extremities: No C/C/E
Neuro: Non Focal
--- NOTE | 2023-08-18 07:26 | W.PN.HOSP.TC ---
Today's Communication/Plan
-
1PRBC transfusion for hgb 7.1
monitor Hgb Plt
PT/OT
pain control
cont IM weekly B12 injections
discharge planning Acute rehab
Assessment / Plan
Assessment / Plan
HPI: 73-year-old female with a past medical history of minimal-change kidney disease, lupus/scleroderma overlap, CHF, hypertension, and hyperlipidemia presents with a mechanical fall. Patient reports losing her balance in the morning, and fell.
Denies loss of consciousness, denies hitting her head. She did hit her neck, and has a bruise. No fever. No chest pain, no shortness of breath. 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
#Acute right periprosthetic proximal femur fracture
Appreciate orthopedic surgery input, recommend conservative management with PT, pain control
PT�weightbearing as tolerated on walker
NO active/passive abduction or adduction (as this will put stress on the fracture).
PT/OT recommended Acute Rehab
PMR eval appreciated
#Acute blood loss anemia from hip fracture and ecchymosis of right neck superimposed on chronic megaloblastic anemia
#B12 deficiency
Hemoglobin 6.5 today, transfuse 1 unit of packed red blood cells, responded appropriately
Hematology following, follow-up on methylmalonic acid
cont B12 supplementation (patient was recently started on weekly IM injections, 2nd dose so far), repeat B12 level in 1 mo recommended
08/17 Hgb dropped from 7.7 to 7.1 repeat PRBC with appropriate response 8.1
#Thrombocytopenia
Seen by hematology, differential diagnosis includes medication reaction to Bactrim, versus immune mediated, versus B12/folate deficiency
Hematology outpt follow up for possible bone marrow bx recommended
#History of CHF
Continue Lasix for now
Monitor fluid status, trend weights
#Hyponatremia
Fluid restrict, TSH wnl, a.m. cortisol
Na improved low 130s stable
#Hypokalemia
Repleted and resolved, magnesium normal
#Chronic urinary retention with chronic Savage upon admission
Has had Savage since May 2023
#Right neck ecchymosis
Monitor
#Coccyx pain
Likely from trauma
Patient declines Sacral x-ray
Continue pain meds
#Pulmonary hypertension
Continue Ambrisentan, sildenafil
#Stage III chronic kidney disease
Trend creatinine
#Lupus/scleroderma
#Minimal-change kidney disease
Continue prednisone
#Gastroesophageal reflux disease
Continue PPI
DVT prophylaxis�SCDs/LYRIC stockings (would avoid chemical DVT prophylaxis due to thrombocytopenia- can reconsider if thrombocytopenia improves)
Full code
Total time spent to see the patient on the floor, examine the patient, review data and lab results, discuss treatment plan with patient, nursing staff around 55 minutes.
Physical Exam
General: Well Developed, Well Nourished and No Apparent Distress
HEENT: NormoCephalic, Anicteric, Moist mucous membranes
Respiratory: Clear
Cardiac: S1/S2 and Regular Rhythm
GI: Soft, Non Tender, Non Distended and Normal Bowel Sounds
Musculoskeletal: No Clubbing, No Cyanosis, No edema
Skin: Warm and Dry
Neuro: Awake, Alert and Oriented
Psych: Calm
Anticipated Discharge: 24 - 48 hours
Subjective/Interval History
-
Date of Service: August 18, 2023
Objective Data
-
Labs:
Laboratory Results
08/18/23
07:11
WBC Pending
Hgb Pending
Hct Pending
Plt Count Pending
Sodium Pending
Potassium Pending
Chloride Pending
Carbon Dioxide Pending
BUN Pending
Creatinine Pending
Glucose Pending
Calcium Pending
Vital Signs:
Vital Signs
Temp Pulse Resp BP Pulse Ox
97.3 F 95 18 106/60 98
08/17/23 23:40 08/17/23 23:40 08/17/23 23:40 08/17/23 23:40 08/17/23 23:40
I&O
08/17/23 08/18/23 08/19/23
06:59 06:59 06:59
Intake Total 1939 / 1939 480 / 480
Output Total 2975 / 2975 1500 / 1500
Balance -1035 / -1035 -1020 / -1020
[2023-08-18 07:32] LABS: Hemoglobin 7.1 g/dL (12.0-16.0); Mean Corp Hgb Conc. 34.1 g/dL (33.0-37.0); Mean Corpuscular Hgb 33.2 pg (27.0-31.0); Mean Corpuscular Volume 97.2 fL (81.0-99.0); Mean Platelet Volume 11.2 fL (7.4-10.4); Platelet Count 51 10^3/uL (130-400); Red Blood Cell Count 2.14 10^6/uL (4.20-5.40); Red Cell Dist. Width 21.5 % (11.5-14.5); White Blood Cell Count 8.9 10^3/uL (4.8-10.8)
[2023-08-18 07:46] LABS: Hematocrit 20.8 % (37.0-47.0)
[2023-08-18] MEDS: DELTASONE 70 MG PO (07:46)
[2023-08-18] MEDS: TYLENOL 1000 MG PO ×3 (07:46→21:19)
[2023-08-18] MEDS: FEOSOL 325 MG PO (07:47)
[2023-08-18] MEDS: LASIX 60 MG PO (07:47)
[2023-08-18] MEDS: REVATIO 20 MG PO ×3 (07:47→21:19)
[2023-08-18] MEDS: BACTRIM DS 800 MG/160 MG 1 TABLET PO (07:47)
[2023-08-18] MEDS: NON-FORMULARY ITEM 5 MG PO (07:53)
[2023-08-18 08:02] LABS: Blood Urea Nitrogen 43 mg/dl (7-17); Calcium 8.8 mg/dl (8.4-10.2); Carbon Dioxide 33 mmol/L (22-30); Chloride 95 mmol/L (98-107); Estimated Creatinine Clearance 43 ml/min; Glucose 96 mg/dl (70-99); Potassium 3.8 mmol/L (3.5-5.1); Sodium 132 mmol/L (135-145); eGFR > 60.00
--- NOTE | 2023-08-18 12:11 | CM ---
manager cardiac cath reviewed patient's chart and spoke with [facility] and they have accepted patient however demetria is not cleared for discharge today.
Plan; [facility] acute rehab when stable
Report [phone]
[2023-08-18] MEDS: CYANOCOBALAMIN IM (14:06)
[2023-08-18] MEDS: MIRALAX PO (14:06)
[2023-08-18 16:23] LABS: Free Kappa Light Chains,Quant 25.81 mg/L (3.30-19.40); Free Lambda Light Chains,Quant 11.34 mg/L (5.71-26.30); Kappa/Lambda Fr Light Ratio 2.28 (0.26-1.65)
[2023-08-18 17:52] LABS: TSH Reflex To Free T4 2.27 uIU/ml (0.47-4.68)
[2023-08-18] MEDS: PROTONIX 40 MG PO (17:59)
[2023-08-18 18:48] LABS: Hematocrit 23.4 % (37.0-47.0); Hemoglobin 8.1 g/dL (12.0-16.0)
[2023-08-18] MEDS: LIPITOR 10 MG PO (21:19)
[2023-08-19 05:30] LABS: Methylmalonic Acid 0.26 umol/L (0.00-0.40)
[2023-08-19 07:00] VITALS: BP 98/55
[2023-08-19 07:08] VITALS: BMI 25.9
--- NOTE | 2023-08-19 07:19 | W.PN.HOSP.TC ---
Today's Communication/Plan
-
monitor H&H
pain control
PT/OT
discharge planning Acute Rehab
Assessment / Plan
Assessment / Plan
HPI: 73-year-old female with a past medical history of minimal-change kidney disease, lupus/scleroderma overlap, CHF, hypertension, and hyperlipidemia presents with a mechanical fall. Patient reports losing her balance in the morning, and fell.
Denies loss of consciousness, denies hitting her head. She did hit her neck, and has a bruise. No fever. No chest pain, no shortness of breath. 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
#Acute right periprosthetic proximal femur fracture
Appreciate orthopedic surgery input, recommend conservative management with PT, pain control
PT�weightbearing as tolerated on walker
NO active/passive abduction or adduction (as this will put stress on the fracture).
PT/OT/PMR eval appreciated Acute Rehab
#Acute blood loss anemia from hip fracture and ecchymosis of right neck superimposed on chronic megaloblastic anemia
#B12 deficiency
Hemoglobin 6.5 today, transfuse 1 unit of packed red blood cells, responded appropriately
Hematology following, follow-up on methylmalonic acid
cont B12 supplementation (patient was recently started on weekly IM injections, 2nd dose so far), repeat B12 level in 1 mo recommended
08/17 Hgb dropped from 7.7 to 7.1 repeat PRBC with appropriate response 8.1, H&H remains stable since 2nd transfusion
#Thrombocytopenia
Seen by hematology, differential diagnosis includes medication reaction to Bactrim, versus immune mediated, versus B12/folate deficiency
Hematology outpt follow up for possible bone marrow bx recommended
#History of CHF
Continue Lasix for now
Monitor fluid status, trend weights
#Hyponatremia
Fluid restrict, TSH wnl, a.m. cortisol
Na improved low 130s stable
#Hypokalemia
Repleted and resolved, magnesium normal
#Chronic urinary retention with chronic Savage upon admission
Has had Savage since May 2023
#Right neck ecchymosis
Monitor
#Coccyx pain
Likely from trauma
Patient declines Sacral x-ray
Continue pain meds
#Pulmonary hypertension
Continue Ambrisentan, sildenafil
#Stage III chronic kidney disease
Trend creatinine
#Lupus/scleroderma
#Minimal-change kidney disease
Continue prednisone
#Gastroesophageal reflux disease
Continue PPI
DVT prophylaxis�SCDs/LYRIC stockings (would avoid chemical DVT prophylaxis due to thrombocytopenia- can reconsider if thrombocytopenia improves)
Full code
discussed with Patient at bedside and patient's son Juan over phone
Total time spent to see the patient on the floor, examine the patient, review data and lab results, discuss treatment plan with patient, nursing staff around 55 minutes.
Physical Exam
General: Well Developed, Well Nourished and No Apparent Distress
HEENT: NormoCephalic, Anicteric, Moist mucous membranes
Respiratory: Clear
Cardiac: S1/S2 and Regular Rhythm
GI: Soft, Non Tender, Non Distended and Normal Bowel Sounds
Musculoskeletal: No Clubbing, No Cyanosis, No edema
Skin: Warm and Dry
Neuro: Awake, Alert and Oriented
Psych: Calm
Anticipated Discharge: 24 - 48 hours
Subjective/Interval History
-
Date of Service: August 19, 2023
Reports feeling well. Pain control improved. Ambulation function improving. Denies new acute issues at this time.
Objective Data
-
Labs:
Laboratory Results
08/19/23
06:25
WBC Pending
Hgb Pending
Hct Pending
Plt Count Pending
Sodium Pending
Potassium Pending
Chloride Pending
Carbon Dioxide Pending
BUN Pending
Creatinine Pending
Glucose Pending
Calcium Pending
Vital Signs:
Vital Signs
Temp Pulse Resp BP Pulse Ox
97.9 F 97 18 118/70 97
08/18/23 23:45 08/18/23 23:45 08/18/23 23:45 08/18/23 23:45 08/18/23 23:45
I&O
08/18/23 08/19/23 08/20/23
06:59 06:59 06:59
Intake Total 480 / 480 1350 / 1350 1500 / 1500
Output Total 1500 / 1500 1450 / 1450 600 / 600
Balance -1020 / -1020 -100 / -100 900 / 900
[2023-08-19 07:32] LABS: Hematocrit 24.6 % (37.0-47.0); Hemoglobin 8.4 g/dL (12.0-16.0); Mean Corp Hgb Conc. 34.1 g/dL (33.0-37.0); Mean Corpuscular Hgb 32.2 pg (27.0-31.0); Mean Corpuscular Volume 94.3 fL (81.0-99.0); Mean Platelet Volume 11.5 fL (7.4-10.4); Platelet Count 53 10^3/uL (130-400); Red Blood Cell Count 2.61 10^6/uL (4.20-5.40); Red Cell Dist. Width 22.4 % (11.5-14.5); White Blood Cell Count 9.3 10^3/uL (4.8-10.8)
[2023-08-19 08:01] LABS: Blood Urea Nitrogen 44 mg/dl (7-17); Calcium 8.9 mg/dl (8.4-10.2); Carbon Dioxide 32 mmol/L (22-30); Chloride 94 mmol/L (98-107); Estimated Creatinine Clearance 39 ml/min; Glucose 83 mg/dl (70-99); Magnesium 2.1 mg/dl (1.6-2.3); Phosphorus 3.5 mg/dl (2.5-4.5); Potassium 3.7 mmol/L (3.5-5.1); Sodium 132 mmol/L (135-145); eGFR 53.72
[2023-08-19] MEDS: FEOSOL 325 MG PO (08:04)
[2023-08-19] MEDS: LASIX 60 MG PO (08:04)
[2023-08-19] MEDS: MIRALAX 17 GRAMS PO (08:04)
[2023-08-19] MEDS: TYLENOL 1000 MG PO ×3 (08:05→21:56)
[2023-08-19] MEDS: REVATIO 20 MG PO ×3 (08:05→21:56)
[2023-08-19] MEDS: DELTASONE 70 MG PO (08:05)
[2023-08-19] MEDS: NON-FORMULARY ITEM 5 MG PO (08:06)
--- NOTE | 2023-08-19 10:17 | CM ---
digital content manager reviewed patient's chart this am and spoke with patient, patient's family have been in touch with, [facility], ' and have been able to place patient's spouse. digital content manager spoke with [facility] this am and they will have a
bed for patient tomorrow at [facility].
Plan; Patient to transfer to [facility] tomorrow.
[facility]
Report [phone]
[2023-08-19 15:00] VITALS: BP 99/59
[2023-08-19] MEDS: PROTONIX 40 MG PO (17:49)
[2023-08-19] MEDS: LIPITOR 10 MG PO (21:56)
[2023-08-19 23:56] VITALS: BP 111/62
[2023-08-20 06:00] VITALS: BMI 24.7
[2023-08-20 07:00] VITALS: BP 94/56
--- NOTE | 2023-08-20 07:21 | W.PN.HOSP.TC ---
Today's Communication/Plan
-
Monitor H&H
GI eval
bactrim hold and IV iron as per hematology
cont PT/OT
Assessment / Plan
Assessment / Plan
HPI: 73-year-old female with a past medical history of minimal-change kidney disease, lupus/scleroderma overlap, CHF, hypertension, and hyperlipidemia presents with a mechanical fall. Patient reports losing her balance in the morning, and fell.
Denies loss of consciousness, denies hitting her head. She did hit her neck, and has a bruise. No fever. No chest pain, no shortness of breath. 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
#Acute right periprosthetic proximal femur fracture
Appreciate orthopedic surgery input, recommend conservative management with PT, pain control
PT�weightbearing as tolerated on walker
NO active/passive abduction or adduction (as this will put stress on the fracture).
PT/OT/PMR eval appreciated Acute Rehab
#Acute blood loss anemia from hip fracture and ecchymosis of right neck superimposed on chronic megaloblastic anemia
#B12 deficiency
Hemoglobin 6.5 transfused 1 unit of packed red blood cells, responded appropriately
methylmalonic acid pending
cont B12 supplementation (patient was recently started on weekly IM injections, 2nd dose so far), repeat B12 level in 1 mo recommended
08/17 Hgb dropped from 7.7 to 7.1 repeated PRBC transfusion with appropriate response 8.1, H&H however gradually trending down again
GI eval requested suspect possible GIB (endorses dark stools though on oral iron supplementation)
Hematology eval appreciated oral Iron switched to IV
#Thrombocytopenia
Seen by hematology, differential diagnosis includes medication reaction to Bactrim, versus immune mediated, versus B12/folate deficiency
Hematology home ppx Bactrim placed on hold, outpt follow up for possible bone marrow bx recommended
#History of CHF
Continue home Lasix
Monitor fluid status, trend weights
#Hyponatremia
Fluid restrict, TSH wnl, a.m. cortisol
Na improved low 130s stable
#Hypokalemia
Repleted and resolved
#Chronic urinary retention with chronic Savage upon admission
Has had Savage since May 2023
#Right neck ecchymosis
Monitor
#Coccyx pain
Likely from trauma
Patient declines Sacral x-ray
Continue pain meds
#Pulmonary hypertension
Continue Ambrisentan, sildenafil
#Stage III chronic kidney disease
Cr stable
#Lupus/scleroderma
#Minimal-change kidney disease
Continue prednisone
#Gastroesophageal reflux disease
Continue PPI
DVT prophylaxis�SCDs/LYRIC stockings (would avoid chemical DVT prophylaxis due to thrombocytopenia- can reconsider if thrombocytopenia improves)
Full code
discussed with Patient at bedside and patient's son Juan over phone
Total time spent to see the patient on the floor, examine the patient, review data and lab results, discuss treatment plan with patient, nursing staff around 55 minutes.
Physical Exam
General: Well Developed, Well Nourished and No Apparent Distress
HEENT: NormoCephalic, Anicteric, Moist mucous membranes
Respiratory: Clear
Cardiac: S1/S2 and Regular Rhythm
GI: Soft, Non Tender, Non Distended and Normal Bowel Sounds
Musculoskeletal: No Clubbing, No Cyanosis, No edema
Skin: Warm and Dry
Neuro: Awake, Alert and Oriented
Psych: Calm
Anticipated Discharge: 24 - 48 hours
Subjective/Interval History
-
Date of Service: August 20, 2023
Seen and examined at bedside in no acute distress sitting up comfortably in chair. Denies new acute issues at this time. Pain well controlled with current regimen.
Objective Data
-
Labs:
Laboratory Results
08/20/23
06:00
WBC Pending
Hgb Pending
Hct Pending
Plt Count Pending
Sodium Pending
Potassium Pending
Chloride Pending
Carbon Dioxide Pending
BUN Pending
Creatinine Pending
Glucose Pending
Calcium Pending
Vital Signs:
Vital Signs
Temp Pulse Resp BP Pulse Ox
97.8 F 98 18 111/62 93
08/19/23 23:56 08/19/23 23:56 08/19/23 23:56 08/19/23 23:56 08/19/23 23:56
I&O
08/19/23 08/20/23 08/21/23
06:59 06:59 06:59
Intake Total 1350 / 1350 2099 / 2100
Output Total 1450 / 1450 1800 / 1800
Balance -100 / -100 300 / 300
[2023-08-20 08:09] LABS: Hematocrit 24.6 % (37.0-47.0); Hemoglobin 8.1 g/dL (12.0-16.0); Mean Corp Hgb Conc. 32.9 g/dL (33.0-37.0); Mean Corpuscular Hgb 32.7 pg (27.0-31.0); Mean Corpuscular Volume 99.2 fL (81.0-99.0); Mean Platelet Volume 11.3 fL (7.4-10.4); Platelet Count 60 10^3/uL (130-400); Red Blood Cell Count 2.48 10^6/uL (4.20-5.40); Red Cell Dist. Width 22.2 % (11.5-14.5)
[2023-08-20] MEDS: MIRALAX 17 GRAMS PO (08:09)
[2023-08-20] MEDS: LASIX PO (08:11)
[2023-08-20] MEDS: BACTRIM DS 800 MG/160 MG 1 TABLET PO (08:12)
[2023-08-20] MEDS: DELTASONE 70 MG PO (08:12)
[2023-08-20] MEDS: FEOSOL 325 MG PO (08:12)
[2023-08-20] MEDS: REVATIO 20 MG PO ×3 (08:12→22:13)
[2023-08-20] MEDS: TYLENOL 1000 MG PO ×3 (08:12→22:13)
[2023-08-20] MEDS: NON-FORMULARY ITEM 5 MG PO (08:14)
[2023-08-20 08:59] LABS: Blood Urea Nitrogen 46 mg/dl (7-17); Calcium 8.9 mg/dl (8.4-10.2); Carbon Dioxide 32 mmol/L (22-30); Chloride 94 mmol/L (98-107); Estimated Creatinine Clearance 39 ml/min; Glucose 109 mg/dl (70-99); Magnesium 2.1 mg/dl (1.6-2.3); Phosphorus 3.4 mg/dl (2.5-4.5); Potassium 3.6 mmol/L (3.5-5.1); Sodium 132 mmol/L (135-145); eGFR 53.72
--- NOTE | 2023-08-20 10:11 | CM ---
Chart reviewed and patient has been accepted at [facility] today and bed is available today, waiting on final decision from patient's physician.
Plan; [facility] when stable.
[facility]
Report [id number]
[2023-08-20 10:19] LABS: Hematocrit 23.7 % (37.0-47.0); Hemoglobin 7.8 g/dL (12.0-16.0)
[2023-08-20 12:34] LABS: Albumin 3.03 g/dL (3.75-5.01); Alpha 2 Globulin 0.74 g/dL (0.48-1.05); SPEP IFE Reflex IFE Done; Total Protein-Electrophoresis 5.1 g/dL (6.3-8.2)
--- NOTE | 2023-08-20 13:55 | CON.GI ---
Addendum entered and electronically signed by Morris Saxena MD 08/20/23 17:06:
I saw and examined the patient.
The PA's note was reviewed and I agree with the note.
Comment:
The patient is a 73 year old female with h/o minimal-change disease on prednisone 70 mg daily, severe pHTN, scleroderma/lupus overlap, CHF, GERD, hypertension, hyperlipidemia, DVT, PE with subsequent IVC filter placed (2007) and osteoarthritis who
p/w mechanical fall. Found to have right proximal femur fracture being mx non-operatively. GI being consulted for anemia and reported melena about a week ago. Denies abdominal pain or NSAID use. EGD/colonoscopy in remote past (> 15 yrs ago).
Impression / Rec:
1. Anemia and reported melena - Baseline Hgb on 07/12/2023 was 10.0. H/o vit B12 deficiency, started B12 supplement. Started oral iron. H/o anemia acute on chronic slowly progressing over years. Remote EGD/colonoscopy about 15 years ago. Denies
abdominal pain, no NSAID use. Since this time this is stayed in the 8.1-7.8 range. Elevated BUN, reported melena, heme +ve stool. No sign of active bleeding. Can plan for endo evaluation with EGD Wednesday, however given pt's severe pHTN and CHF,
would need cardiology/pulmonary evaluation and optimization. PPI IV BID for now.
Original Note:
Consultation
-
Date/Time Consultation Requested: 08/20/23 1126
Date/Time Consultation Performed: 08/20/23 1200
Requesting Provider: Dr. Barnes
Performing Provider: Dr. Saxena/LUCY Murcia
Reason for Consultation: anemia
Medical History
Chief Complaint / HPI
Chief Complaint: anemia
History of Present Illness:
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
osteoarthritis who presents to the emergency room on 08/15/2023 after mechanical fall with resultant right periprosthetic proximal femur fraction about the HOMAR. Orthopedics saw her, the prosthetic is well-seated. Who recommended PT, OT with
weightbearing as tolerated on a walker with no active or passive abduction or abduction. The patient was already seen by hematology on 08/15/2023 as the patient initially had a hemoglobin that went from 8.7 down to 6.5. She also had platelets that
were in the 50s (of note patient's platelets were already 62 on 07/12/2023. Patient's baseline hemoglobin on 07/12/2023 was 10.0. The patient was transfused packed red blood cells. Started B12 supplement. Started oral iron. Possible bone marrow
biopsy for bicytopenia as an outpatient. Patient apparently had a history of anemia acute on chronic slowly progressing over years. We are asked to evaluate for continued anemia. The patient was transfused 1 unit of packed red blood cells on
08/16/2023 for hemoglobin of 6.5. This went up to 7.7. On 08/18/2023 hemoglobin went down to 7.1 and she was transfused another unit of packed red blood cells at that time. Hemoglobin went up to 8.1. Since this time this is stayed in the 8.1-7.8
range. Her platelets have remained in the 50-60 range. Her BUN has been slowly creeping up starting at about 25 and has been progressively increasing and is 46 today. Creatinine started at 0.9 and has gone up slightly to 1.1 today. She has
normal LFTs. Normal LDH. I did check her stool for occult blood and this was positive. She is on pantoprazole 40 mg daily here. She takes Nexium as an outpatient. She was started on prednisone 70 mg daily as an outpatient and May. She does
not take any NSAIDs. She does have multiple areas of ecchymosis on her body including the right side of her neck left hip. She has scattered angiomata across to her chest. She denies any fevers, chills, nausea, vomiting, hematochezia, dysphagia
or odynophagia. No early satiety or unintentional weight loss. Her stools became darker upon starting iron. Prior to this they were brown soft formed and regular. She does have some oozing around some skin breakdown in the buttocks/sacrum area.
Upon my rectal exam there was also some blood-tinged leakage around Savage, question if this was from vaginal area or from urethral. Urine from Savage is yellow.Patient denies any epistaxis. Her last endoscopy and colonoscopy were in 2008 not at this
hospital. She states this was for GERD and for screening colonoscopy. She states both were normal.
Past Medical History
Past Medical History: CHF, GERD, HTN, Hypercholesterolemia and Other (DJD, DVT, PE, osteoarthritis, severe pulm HTN, pulm nodule, cystocele, rectocele, right hydronephrosis, scleroderma/lupus overlap, hiatal hernia, iron deficiency, glaucoma,
cataracts, anemia, overactive bladder, sepsis from UTI (05/2023), minimal change kidney disease )
Past Surgical History: Gynecological (hysterectomy), Orthopedic (R THR, L THR) and Other (IVC filter, sacrospinous ligament fixation, anterior and posterior colporrhaphy and perineoplasty, right renal bx/left renal bx)
Social History
Tobacco: Non-Smoker
Alcohol: Occasional
Drug: None
Personal:
Living: With Family
Allergies / Home Medications
Allergy/AdvReac Type Severity Reaction Status Date / Time
No Known Allergies Allergy Verified 07/12/23 12:25
�Medication �Instructions �Recorded
esomeprazole magnesium 20 mg 20 mg PO QPM GERD 03/10/22
capsule,delayed release (Nexium)
ferrous sulfate 325 mg (65 mg 325 mg PO DAILY Supplement 03/10/22
iron) tablet (Iron (ferrous
sulfate))
simvastatin 20 mg tablet 20 mg PO HS High cholesterol 03/10/22
cranberry extract 200 mg capsule 200 mg PO DAILY Supplement 09/10/22
(Ellura)
furosemide 40 mg tablet (Lasix) 60 mg PO DAILY Fluid 03/26/23
Retention/Swelling
sildenafil (pulm.hypertension) 20 20 mg PO TID pulmonary hypertension 05/24/23
mg tablet
ambrisentan 5 mg tablet 5 mg PO DAILY 05/25/23
metoprolol succinate 25 mg 12.5 mg (1/2 x 25 mg) PO DAILY 30 06/01/23
tablet,extended release 24 hr days #15 tabs
acetaminophen 500 mg tablet 1,000 mg PO HS 08/14/23
(Tylenol Extra Strength)
cyanocobalamin (vitamin B-12) 1,000 mcg IM WE 08/14/23
1,000 mcg/mL injection solution
prednisone 50 mg tablet 70 mg PO DAILY 08/14/23
sulfamethoxazole 800 1 tab PO MOWEFR@0800 08/14/23
mg-trimethoprim 160 mg tablet
(Bactrim DS)
Review of Systems
-
All other systems: A 12 pt ROS was Negative except as stated above in HPI
Vital Signs
Temp Pulse Resp BP Pulse Ox
98.3 F 96 18 94/52 97
08/20/23 07:00 08/20/23 07:00 08/20/23 07:00 08/20/23 08:11 08/20/23 07:00
Physical Exam
Exam
General: No Apparent Distress
HEENT: Anicteric
Respiratory: Clear
Cardiac: Regular Rhythm
GI: Soft, Non Tender, Non Distended and Normal Bowel Sounds
Rectal: Hem Positive (Dark stool, OB positive) and Other (Area of sacral skin excoriation active ooze/bleed)
Genito-urinary: Clear Urine and Other (Blood tinge fluid running down Savage, unsure if this was from vaginal area or from urethra)
Skin: Warm, Dry and Other (Area of ecchymosis right neck, area of ecchymosis left hip, multiple small areas of ecchymosis on body. Spider angiomata across chest)
Neuro: AO x 3
Psych: Calm
Results
WBC 9.0 10^3/uL (4.8-10.8) 08/20/23 07:40
Hgb 7.8 g/dL (12.0-16.0) L 08/20/23 09:36
Hct 23.7 % (37.0-47.0) L 08/20/23 09:36
MCV 99.2 fL (81.0-99.0) H 08/20/23 07:40
Plt Count 60 10^3/uL (130-400) L 08/20/23 07:40
Absolute Neuts (auto) 8.0 10^3/uL (1.4-6.5) H 08/16/23 07:04
Sodium 132 mmol/L (135-145) L 08/20/23 07:40
Potassium 3.6 mmol/L (3.5-5.1) 08/20/23 07:40
Chloride 94 mmol/L (98-107) L 08/20/23 07:40
Carbon Dioxide 32 mmol/L (22-30) H 08/20/23 07:40
BUN 46 mg/dl (7-17) H 08/20/23 07:40
Creatinine 1.1 mg/dL (0.6-1.0) H 08/20/23 07:40
Calcium 8.9 mg/dl (8.4-10.2) 08/20/23 07:40
Total Bilirubin 0.9 mg/dl (0.2-1.3) 08/15/23 06:37
AST 19 U/L (14-36) 08/15/23 06:37
ALT 19 U/L (0-35) 08/15/23 06:37
Alkaline Phosphatase 72 U/L (38-126) 08/15/23 06:37
Diagnostic Image Results:
Ultrasound cerebrovascular carotid 08/14/23
IMPRESSION: No significant plaque or stenosis bilateral extracranial carotid arteries. Antegrade flow bilateral vertebral arteries. No findings to suggest any carotid dissection or aneurysm/pseudoaneurysm. Very small possible hematoma in the
vicinity of patient's neck injury noted in the subcutaneous space measuring 0.4 x 0.3 x 0.4 cm. Urgent study findings were communicated to emergency room provider Dr. Venkat Tracy via tiger text today at 9:48 AM.
08/14/23 R knee
No acute fracture or dislocation. Severe osteoarthrosis of the right knee
08/14/23 Right hip XR
Periprosthetic fracture of the right greater trochanter.
Prior GI Procedures:
EGD: Patient states in 2008, cannot remember the physician states it was normal.
Colonoscopy: Patient states in 2008, cannot remember the physician states it was normal.
Assessment / Plan
-
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
osteoarthritis who presents to the emergency room on 08/15/2023 after mechanical fall with resultant right periprosthetic proximal femur fraction about the HOMAR. Orthopedics saw her, the prosthetic is well-seated. Who recommended PT, OT with
weightbearing as tolerated on a walker with no active or passive abduction or abduction. The patient was already seen by hematology on 08/15/2023 as the patient initially had a hemoglobin that went from 8.7 down to 6.5. She also had platelets that
were in the 50s (of note patient's platelets were already 62 on 07/12/2023. Patient's baseline hemoglobin on 07/12/2023 was 10.0. The patient was transfused packed red blood cells. Started B12 supplement. Started oral iron. Possible bone marrow
biopsy for bicytopenia as an outpatient. Patient apparently had a history of anemia acute on chronic slowly progressing over years. We are asked to evaluate for continued anemia. The patient was transfused 1 unit of packed red blood cells on
08/16/2023 for hemoglobin of 6.5. This went up to 7.7. On 08/18/2023 hemoglobin went down to 7.1 and she was transfused another unit of packed red blood cells at that time. Hemoglobin went up to 8.1. Since this time this is stayed in the 8.1-7.8
range. Her platelets have remained in the 50-60 range. Her BUN has been slowly creeping up starting at about 25 and has been progressively increasing and is 46 today. Creatinine started at 0.9 and has gone up slightly to 1.1 today. She has
normal LFTs. Normal LDH. I did check her stool for occult blood and this was positive.
Impression:
Anemia
-multifactorial with blood loss from right neck hematoma, left renal bx hematoma, other small areas of bleeding, B12 deficiency, new right hip fx and OB positive stool on chronic high dose prednisone with moderate sized hiatal hernia in the setting
of thrombocytopenia. Hgb has been relatively stable.
Thrombocytopenia
-Heme following, recommend outpatient follow up. Already on high dose steroids for minimal change disease. Possible bone marrow bx as outpatient.
GERD
-On Pantoprazole 40 mg daily.
Other dx:
-Severe pulmonary hypertension
-CHF
-Scleroderma/lupus overlap
-CKD
-Hypertension, hyperlipidemia
-DVT/PE with IVC filter
Plan:
-Continue Pantoprazole 40 mg, can increase to BID
-Could consider on EGD on Wednesday given increase in BUN slightly out of proportion to creat, high dose steroids and moderate sized hiatal hernia. However would watch Hgb and PLT.
-Would hold off on Colonoscopy as patient cannot position herself for colonoscopy at present time unless active bleeding. Would recommend after healed from right hip fx.
-Needs Heme follow up.
-Further recommendation to be forthcoming.
-
-
Thank you for consultation and allowing me to participate in the patient's care. Please call the production consultant GI physician during the after hours with any questions or concerns.
[2023-08-20 15:00] VITALS: BP 118/91
--- NOTE | 2023-08-20 16:19 | W.PN.ONC2 ---
Today's Communication / Plan
-
- additional work up for low plts
- hold bactrim.
- IV iron
- heme follow up
Impression
Impression
Anemia, acute on chronic, slowly progressive over years
Thrombocytopenia
B12 deficiency
Traumatic right hip fracture -nonsurgical management
Plan
Plan
# thrombocytopenia
- pt with several possible Etiologies were thrombocytopenia including sequestration with hematoma involving right neck, left renal biopsy site, medication induced this timing coincides with initiation of prophylactic Bactrim. Thrombocytopenia can
also be seen with lupus anticoagulant which she may be at higher risk for with underlying autoimmune conditions.
- check LA, PTT to see if prolonged.
- recommended holding bactrim for at least 2 weeks to see if this results in count recovery. I would favor not starting alternative abx for now however if plts to recover then switching to alternative option such as dapson, atovaquone.
- plts overall stable/slightly better today at 60K. continue to monitor daily.
# Anemia
- new since May with fluctuation, last required pRBCS on 08/15.
- multifactorial with blood loss from right neck hematoma, left renal bx hematoma, right hip fx and OB positive stool on chronic high dose prednisone with moderate sized hiatal hernia in the setting of thrombocytopenia.
- GI consulted, considering EGD wednesday. with ferritin 59.4 I suspect she would respond to iron repletion. I will order for IV iron while inpt (will hold home PO iron while giving IV).
Subjective/Objective
Chief Complaint
thrombocytopenia, anemia
Subjective
pt with no new complaints today. she tells me GI was in to see her and a stool test was positive. She does not having darker, more paste like stools recently. denies BRPR, hematuria.
Vital Signs:
Vital Signs
Temp Pulse Resp BP Pulse Ox
98.3 F 96 18 94/52 97
08/20/23 07:00 08/20/23 07:00 08/20/23 07:00 08/20/23 08:11 08/20/23 07:00
Lab Results:
Laboratory Data
WBC 9.0 10^3/uL (4.8-10.8) 08/20/23 07:40
Hgb 7.8 g/dL (12.0-16.0) L 08/20/23 09:36
Plt Count 60 10^3/uL (130-400) L 08/20/23 07:40
eGFR 53.72 08/20/23 07:40
Physical Exam
HEENT: No Jaundice
Cardiology: Normal Sinus Rhythm
Pulmonary: Clear
GI: Soft; No Distended
Extremities: No Edema
Neuro: Non Focal
Review of Systems
Review of Systems
Constitutional: Denies Fever
Respiratory: Denies Dyspnea
Cardiovascular: Denies Chest Pain
Genitourinary: Denies Hematuria
Neurological: Denies Headache
Hem/Lymphatic: Reports Easy Bruising
[2023-08-20 17:16] LABS: APTT 19.2 Sec (23.4-35.0)
[2023-08-20 19:15] LABS: Hematocrit 24.4 % (37.0-47.0)
[2023-08-20 19:17] LABS: Platelet Antibody, Direct IgG Negative (Negative); Platelet Antibody, Direct IgM Negative (Negative)
[2023-08-20] MEDS: PROTONIX 40 MG PO (20:15)
[2023-08-20] MEDS: LIPITOR 10 MG PO (22:13)
[2023-08-20 23:00] VITALS: BP 131/68
[2023-08-21 05:52] VITALS: BMI 26.6
--- NOTE | 2023-08-21 07:11 | W.PN.HOSP.TC ---
Today's Communication/Plan
-
monitor H&H
pain control
PT/OT
cardiopulmonary risk assessment for planned EGD Mon
Replete potassium
Assessment / Plan
Assessment / Plan
HPI: 73-year-old female with a past medical history of minimal-change kidney disease, lupus/scleroderma overlap, CHF, hypertension, and hyperlipidemia presents with a mechanical fall. Patient reports losing her balance in the morning, and fell.
Denies loss of consciousness, denies hitting her head. She did hit her neck, and has a bruise. No fever. No chest pain, no shortness of breath. 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
#Acute right periprosthetic proximal femur fracture
Appreciate orthopedic surgery input, recommend conservative management with PT, pain control
PT�weightbearing as tolerated on walker
NO active/passive abduction or adduction (as this will put stress on the fracture).
PT/OT/PMR eval appreciated Acute Rehab
#Acute blood loss anemia from hip fracture and ecchymosis of right neck superimposed on chronic megaloblastic anemia
#B12 deficiency
#Possible GIB
Hemoglobin 6.5 transfused 1 unit of packed red blood cells, responded appropriately
methylmalonic acid pending
cont B12 supplementation (patient was recently started on weekly IM injections, 2nd dose so far), repeat B12 level in 1 mo recommended
08/17 Hgb dropped from 7.7 to 7.1 repeated PRBC transfusion with appropriate response 8.1, H&H however gradually trending down again
Hematology eval appreciated oral Iron switched to IV
GI eval appreciated plans for EGD Mon pending cardiopulmonary risk assessment (cardio and pulm eval requested)
#Thrombocytopenia
Seen by hematology, differential diagnosis includes medication reaction to Bactrim, versus immune mediated, versus B12/folate deficiency
Hematology home ppx Bactrim placed on hold, outpt follow up for possible bone marrow bx recommended
Plt improving
#History of CHF
Continue home Lasix
Monitor fluid status, trend weights
#Hyponatremia
Fluid restrict, TSH wnl, a.m. cortisol
Na improved low 130s stable
#Hypokalemia
Monitor and Replete as necessary
#Chronic urinary retention with chronic Savage upon admission
Has had Savage since May 2023
#Right neck ecchymosis
Monitor
#Coccyx pain
Likely from trauma
Patient declines Sacral x-ray
Continue pain meds
#Pulmonary hypertension
Continue Ambrisentan, sildenafil
#Stage III chronic kidney disease
Cr stable
#Lupus/scleroderma
#Minimal-change kidney disease
Continue prednisone
#Gastroesophageal reflux disease
Continue PPI
DVT prophylaxis�SCDs/LYRIC stockings (would avoid chemical DVT prophylaxis due to thrombocytopenia- can reconsider if thrombocytopenia improves)
Full code
discussed with Patient at bedside and patient's son Juan over phone
Total time spent to see the patient on the floor, examine the patient, review data and lab results, discuss treatment plan with patient, nursing staff around 55 minutes.
Physical Exam
General: Well Developed, Well Nourished and No Apparent Distress
HEENT: NormoCephalic, Anicteric, Moist mucous membranes
Respiratory: Clear
Cardiac: S1/S2 and Regular Rhythm
GI: Soft, Non Tender, Non Distended and Normal Bowel Sounds
Musculoskeletal: No Clubbing, No Cyanosis, No edema
Skin: Warm and Dry
Neuro: Awake, Alert and Oriented
Psych: Calm
Anticipated Discharge: > 48 hours
Subjective/Interval History
-
Date of Service: August 21, 2023
Seen and examined at bedside in no acute distress sitting up comfortably in chair. Reports overall feeling well. Pain controlled at this time. Reports melenic bowel movement in morning.
Objective Data
-
Labs:
Laboratory Results
08/20/23 08/21/23
19:00 06:00
WBC Pending
Hgb 8.0 L Pending
Hct 24.4 L Pending
Plt Count Pending
Sodium Pending
Potassium Pending
Chloride Pending
Carbon Dioxide Pending
BUN Pending
Creatinine Pending
Glucose Pending
Calcium Pending
Vital Signs:
Vital Signs
Temp Pulse Resp BP Pulse Ox
97.6 F 93 19 131/68 95
08/20/23 23:00 08/20/23 23:00 08/20/23 23:00 08/20/23 23:00 08/20/23 23:00
I&O
08/20/23 08/21/23 08/22/23
06:59 06:59 06:59
Intake Total 2100 / 2100 1215 / 1215
Output Total 1800 / 1800 1050 / 1050
Balance 300 / 300 165 / 165
[2023-08-21 07:35] VITALS: BP 114/55
[2023-08-21 08:42] LABS: Hematocrit 25.1 % (37.0-47.0); Hemoglobin 8.2 g/dL (12.0-16.0); Mean Corp Hgb Conc. 32.7 g/dL (33.0-37.0); Mean Corpuscular Hgb 32.4 pg (27.0-31.0); Mean Corpuscular Volume 99.2 fL (81.0-99.0); Mean Platelet Volume 10.9 fL (7.4-10.4); Platelet Count 73 10^3/uL (130-400); Red Blood Cell Count 2.53 10^6/uL (4.20-5.40); Red Cell Dist. Width 22.4 % (11.5-14.5)
[2023-08-21 08:58] LABS: Blood Urea Nitrogen 46 mg/dl (7-17); Calcium 8.9 mg/dl (8.4-10.2); Carbon Dioxide 27 mmol/L (22-30); Chloride 94 mmol/L (98-107); Estimated Creatinine Clearance 48 ml/min; Glucose 169 mg/dl (70-99); Magnesium 2.1 mg/dl (1.6-2.3); Phosphorus 3.7 mg/dl (2.5-4.5); Potassium 3.4 mmol/L (3.5-5.1); Sodium 130 mmol/L (135-145); eGFR > 60.00
[2023-08-21 09:56] VITALS: BP 99/57; PULSE 103; O2SAT 93
[2023-08-21] MEDS: NON-FORMULARY ITEM 5 MG PO (09:59)
[2023-08-21] MEDS: DELTASONE 70 MG PO (10:00)
[2023-08-21] MEDS: LASIX 60 MG PO (10:01)
[2023-08-21] MEDS: TYLENOL 1000 MG PO ×3 (10:04→21:16)
[2023-08-21] MEDS: REVATIO 20 MG PO ×3 (10:05→21:16)
[2023-08-21] MEDS: PROTONIX 40 MG PO ×2 (10:05→20:21)
[2023-08-21] MEDS: MIRALAX 17 GRAMS PO (10:06)
--- NOTE | 2023-08-21 12:20 | W.PN.GI.CBS2 ---
Today's Communication / Plan
-
possible EGD wednesday pending cardiology/pulmonary assessment
Assessment / Plan
-
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
osteoarthritis who presents to the emergency room on 08/15/2023 after mechanical fall with resultant right periprosthetic proximal femur fraction about the HOMAR. Orthopedics saw her, the prosthetic is well-seated. Who recommended PT, OT with
weightbearing as tolerated on a walker with no active or passive abduction or abduction. The patient was already seen by hematology on 08/15/2023 as the patient initially had a hemoglobin that went from 8.7 down to 6.5. She also had platelets that
were in the 50s (of note patient's platelets were already 62 on 07/12/2023. Patient's baseline hemoglobin on 07/12/2023 was 10.0. The patient was transfused packed red blood cells. Started B12 supplement. Started oral iron. Possible bone marrow
biopsy for bicytopenia as an outpatient. Patient apparently had a history of anemia acute on chronic slowly progressing over years. We are asked to evaluate for continued anemia. The patient was transfused 1 unit of packed red blood cells on
08/16/2023 for hemoglobin of 6.5. This went up to 7.7. On 08/18/2023 hemoglobin went down to 7.1 and she was transfused another unit of packed red blood cells at that time. Hemoglobin went up to 8.1. Since this time this is stayed in the 8.1-7.8
range. Her platelets have remained in the 50-60 range. Her BUN has been slowly creeping up starting at about 25 and has been progressively increasing and is 46 today. Creatinine started at 0.9 and has gone up slightly to 1.1 today. She has
normal LFTs. Normal LDH. I did check her stool for occult blood and this was positive.
Pt reports melenic BM this am. Hgb stable at 8.2 today. Low suspicion for active hemorrhage, however given pt's reports of melenic stool, would plan for possible EGD Wednesday, pending cardiology/pulmonary assessment given her severe pulmonary HTN
although she appears stable clinically.
Total Time Spent with Patient (in minutes): 35
Subjective
Subjective
Date of Service: August 21, 2023
Had another melenic BM this am as per pt
Objective
Data Reviewed
Laboratory Data:
Laboratory Results
08/21/23 08:19
08/21/23 08:19
Laboratory Results
APTT 19.2 Sec (23.4-35.0) L 08/20/23 16:46
Phosphorus 3.7 mg/dl (2.5-4.5) 08/21/23 08:19
Magnesium 2.1 mg/dl (1.6-2.3) 08/21/23 08:19
Total Bilirubin 0.9 mg/dl (0.2-1.3) 08/15/23 06:37
AST 19 U/L (14-36) 08/15/23 06:37
ALT 19 U/L (0-35) 08/15/23 06:37
Alkaline Phosphatase 72 U/L (38-126) 08/15/23 06:37
Vital Signs and I&O:
Vital Signs
Temp Pulse Resp BP Pulse Ox
98.1 F 110 20 114/55 100
08/21/23 07:35 08/21/23 10:01 08/21/23 07:35 08/21/23 10:01 08/21/23 07:35
I&O
08/20/23 08/21/23 08/22/23
06:59 06:59 06:59
Intake Total 2100 / 2100 1215 / 1215
Output Total 1800 / 1800 1050 / 1050
Balance 300 / 300 165 / 165
[2023-08-21] MEDS: KCL 40 MEQ PO (13:10)
--- NOTE | 2023-08-21 13:36 | CON.PUL ---
Consultation
Consultation Request
Date/Time Consultation Requested: 08/21/23
Date/Time Consultation Performed: 08/21/23
Performing Provider: Марина
Reason for Consultation: PH
Medical History
-
History of Present Illness:
73-year-old female with a past medical history of minimal-change kidney disease, lupus/scleroderma overlap, CHF, hypertension, and hyperlipidemia presents with a mechanical fall which resulted in a right periprosthetic proximal femur fracture,
admitted 08/14/2023. She was seen by Ortho and felt to be a nonsurgical candidate, she would be managed medically. During her hospitalization she developed anemia and thrombocytopenia, there is now new melena as well. GI was consulted, with
planning for EGD on Wednesday. Due to her history of pulmonary hypertension, a perioperative risk assessment was requested.
In terms of her pulmonary disease, she has moderate pulm hypertension but is otherwise managing well. She has little to no symptoms and is stable on room air.
Past Medical History
Past Medical History: Other (see list below)
Social History
Tobacco: Non-smoker
Alcohol: None
Drug: None
Family History
Family History: Reviewed & Not Pertinent
Allergies / Home Medications
Allergies
Allergy/AdvReac Type Severity Reaction Status Date / Time
No Known Allergies Allergy Verified 07/12/23 12:25
Home Medications
�Medication �Instructions �Recorded �Confirmed �Last Taken �Type
esomeprazole magnesium 20 mg 20 mg PO QPM GERD 03/10/22 08/14/23 08/13/23 History
capsule,delayed release (Nexium)
ferrous sulfate 325 mg (65 mg 325 mg PO DAILY Supplement 03/10/22 08/14/23 08/13/23 History
iron) tablet (Iron (ferrous
sulfate))
simvastatin 20 mg tablet 20 mg PO HS High cholesterol 03/10/22 08/14/23 08/13/23 History
cranberry extract 200 mg capsule 200 mg PO DAILY Supplement 09/10/22 08/14/23 08/13/23 History
(Ellura)
furosemide 40 mg tablet (Lasix) 60 mg PO DAILY Fluid 03/26/23 08/14/23 08/13/23 History
Retention/Swelling
sildenafil (pulm.hypertension) 20 20 mg PO TID pulmonary hypertension 05/24/23 08/14/23 08/13/23 History
mg tablet
ambrisentan 5 mg tablet 5 mg PO DAILY 05/25/23 08/14/23 08/13/23 History
metoprolol succinate 25 mg 12.5 mg (1/2 x 25 mg) PO DAILY 30 06/01/23 08/14/23 08/13/23 Rx
tablet,extended release 24 hr days #15 tabs
acetaminophen 500 mg tablet 1,000 mg PO HS 08/14/23 08/14/23 08/13/23 History
(Tylenol Extra Strength)
cyanocobalamin (vitamin B-12) 1,000 mcg IM WE 08/14/23 08/14/23 08/09/23 History
1,000 mcg/mL injection solution
prednisone 50 mg tablet 70 mg PO DAILY 08/14/23 08/14/23 08/13/23 History
sulfamethoxazole 800 1 tab PO MOWEFR@0800 08/14/23 08/14/23 08/13/23 History
mg-trimethoprim 160 mg tablet
(Bactrim DS)
Review of Systems
-
History Source: Patient
All other systems: Negative unless noted
Vitals / Labs / Diagnostic Testing
Vital Signs
Temp Pulse Resp BP Pulse Ox
98.1 F 110 20 114/55 100
08/21/23 07:35 08/21/23 10:01 08/21/23 07:35 08/21/23 10:01 08/21/23 07:35
Lab Data
08/21/23 08:19
08/21/23 08:19
Laboratory Results
08/20/23
16:46
APTT 19.2 L
Diagnostic Testing:
Physical Exam
-
HEENT: Normocephalic, Anicteric and Moist Mucous Membranes
Cardiovascular: S1/S2, Regular Rhythm and Peripheral Edema
Respiratory: Clear and Non-Labored Respirations
GI: Non Distended and Non Tender
Neurology: Awake, Alert, Oriented, AO x 3 and No Motor Deficits
Skin: Warm, Dry and Good Color
General: Comfortable and Other (NAD)
Assessment
-
73-year-old female with a past medical history of minimal-change kidney disease, lupus/scleroderma overlap, CHF, hypertension, and hyperlipidemia presents with a mechanical fall which resulted in a right periprosthetic proximal femur fracture,
admitted 08/14/2023. She was seen by Ortho and felt to be a nonsurgical candidate, she would be managed medically. During her hospitalization she developed anemia and thrombocytopenia, there is now new melena as well. GI was consulted, with
planning for EGD on Wednesday. Due to her history of pulmonary hypertension, a perioperative risk assessment was requested.
Status post mechanical fall
Right periprosthetic femur fracture
Anemia
Thrombocytopenia
Melena
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
Severe pulmonary hypertension
Lupus and scleroderma
Minimal-change kidney disease
HFrEF, EF 35-40%
Pulmonary nodule on CXR 02/19/22
Right hip osteoarthritis s/p Status post right total hip replacement 11/18/2007
s/p successful left total hip replacement in February 2007
Complicated by History of pulmonary emboli and deep venous thrombosis s/p Inferior vena cava filter 11/02/07
Obesity.
Hypertension.
Left total knee arthroplasty.
Partial hysterectomy
GERD
Plan
No oxygen was needed on admission, currently saturating 95% on RA
In terms of her pulmonary disease, she has moderate pulm hypertension but is otherwise managing well.
She has little to no symptoms and is stable on room air.
Takes PH meds at home, tolerating well
Imaging reviewed- no acute findings
No new chest imaging
Prior ECHO results are reviewed indicating PH
She had recent cath with improved numbers while on treatment
She notes new history of scleroderma, followed Rheum OP
She does have history of VTE
Not on chronic OAC
Right hip fracture, ortho eval
Manage medically
Pain control
Anemia w/u with melena
Planning for EGD
Her perioperative risk is mild given her history, and well controlled symptoms
She is stable on RA, has little to no symptoms with exertion
Continue her home regiment
Would be ok to proceed with needed procedures
If there is complication post procedure, can notify us again to re-eval
Otherwise we will sign off at this time, and see as needed
Diagnostic Data
CXR 02/19/22: Cardiomegaly. Pulmonary vascularity at least top normal. Cannot exclude mild CHF
Suspected approximate 0.8 cm nodule in the right upper lobe. Chest CT suggested when able to be obtained unless there is a more recent outside radiograph or CT to confirm stability.
CT Chest 06/02/22- 3 mm nodule in the lateral segment of the right middle lobe. Mild regions of subpleural linear and reticular interstitial thickening noted in the peripheral upper lobes, right greater than left. Nonspecific. Possibly reflecting
mild obliterative or infective bronchiolitis, interstitial scarring, or mild/early fibrotic changes. Moderate hiatal hernia. Gastroesophageal reflux suggested.
LHC/RHC 03/26/23: Hemodynamics (mmHg): RA (m) : 10 - RV (s/d,m) : 81/15, 37 - PA (s/d, m) :82/34, 50 - PCWP (m) : 16
PA Saturation: 67.5 % on room air
Cardiac Output : 3.86 L/min - Cardiac Index : 2.32 L/min/m-2
Systemic vascular resistance: 1492 dsc^(-5) - Pulmonary vascular resistance: 8.62 jasso unit
LHC 03/10/22- HEMODYNAMICS : (mmHg)
AO (s/d) : 127/70 - LV (s/d) : 132/15 - LVEDP : 22
RA (m) : 19 - RV (s/d,m) : 83/18, 27 - PA (s/d, m) : 81/43, 58 - PCWP (m) : 22
Cardiac Output : 2.67 L/min - Cardiac Index : 1.51 L/min/m-2
Systemic vascular resistance: 2247 dsc^(-5) - Pulmonary vascular resistance: 13.86 wood unit
Conclusions:
1.� No obstructive coronary artery disease.
2.� Significantly elevated right and left-sided filling pressures with severe pulmonary hypertension.
3.� Reduced cardiac output with severely elevated systemic and pulmonary vascular resistance.
�
ECHO 02/26/22 - CONCLUSIONS: �1.� Mild left ventricular hypertrophy with global hypokinesis and D-shaped LV�with septal wall motion abnormality consistent with pulmonary hypertension, EF�35-40%
�2.� Thickened mitral leaflets with mild mitral regurgitation, mitral annular�calcification and normal left atrium
�3.� Aortic sclerosis with mild aortic regurgitation
�4.� Dilated and hypokinetic right ventricle with dilated right atrium,�moderate-severe tricuspid regurgitation, and severe pulmonary hypertension, 67-�72 mmHg systolic
�
Duplex 03/11/22: neg
PFT 03/12/22: FEV1 1.23L 54%, FVC 1.71 L 57%, ratio 72. Post FEV1 1.33 L 58%, no BD response. TLC 4.43 L 90%, RV/TLC 61, DLCO 44% (michelle restrictive, air trapping without hyperinflation on volumes, moderate diffusion impairment)
Reports and relevant images were personally reviewed.
Total time spent on this consultation __75__ includes review of history, physical exam, medications, laboratory data, personal review of imaging, extensive review of outpatient records, discussion with care team and respiratory therapy.
[2023-08-21] MEDS: FERRLECIT 110 MG IV (15:13)
[2023-08-21 15:18] VITALS: BP 92/59
[2023-08-21] MEDS: LIPITOR 10 MG PO (21:16)
[2023-08-21 23:00] VITALS: BP 116/63
[2023-08-22] MEDS: TYLENOL 1000 MG PO ×4 (02:14→21:07)
[2023-08-22 05:23] VITALS: BMI 26.8
--- NOTE | 2023-08-22 06:32 | W.PN.HOSP.TC ---
Today's Communication/Plan
-
monitor H&H
pain control
PT/OT
npo after midnight for push enteroscopy w/ GI
Assessment / Plan
Assessment / Plan
HPI: 73-year-old female with a past medical history of minimal-change kidney disease, lupus/scleroderma overlap, CHF, hypertension, and hyperlipidemia presents with a mechanical fall. Patient reports losing her balance in the morning, and fell.
Denies loss of consciousness, denies hitting her head. She did hit her neck, and has a bruise. No fever. No chest pain, no shortness of breath. 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
#Acute right periprosthetic proximal femur fracture
Appreciate orthopedic surgery input, recommend conservative management with PT, pain control
PT�weightbearing as tolerated on walker
NO active/passive abduction or adduction (as this will put stress on the fracture).
PT/OT/PMR eval appreciated Acute Rehab
#Acute blood loss anemia from hip fracture and ecchymosis of right neck superimposed on chronic megaloblastic anemia
#B12 deficiency
#Possible GIB
Hemoglobin 6.5 transfused 1 unit of packed red blood cells, responded appropriately
methylmalonic acid pending
cont B12 supplementation (patient was recently started on weekly IM injections, 2nd dose so far), repeat B12 level in 1 mo recommended
08/17 Hgb dropped from 7.7 to 7.1 repeated PRBC transfusion with appropriate response 8.1, H&H however gradually trending down again
Hematology eval appreciated oral Iron switched to IV
GI eval appreciated plans for push enteroscopy tomorrow Mon 08/25
cardio pulm risk assessments appreciated
#Thrombocytopenia
Seen by hematology, differential diagnosis includes medication reaction to Bactrim, versus immune mediated, versus B12/folate deficiency
home ppx Bactrim placed on hold as per Hematology, outpt follow up for possible bone marrow bx recommended
Plt improving
#History of CHF
Continue home Lasix
Monitor fluid status, trend weights
#Hyponatremia
Fluid restrict, TSH wnl, a.m. cortisol wnl
Na improved low 130s stable
#Hypokalemia
Monitor and Replete as necessary
#Chronic urinary retention with chronic Savage upon admission
Has had Savage since May 2023
#Right neck ecchymosis
Monitor
#Coccyx pain
Likely from trauma
Patient declines Sacral x-ray
Continue pain meds
#Pulmonary hypertension
Continue Ambrisentan, sildenafil
#Stage III chronic kidney disease
Cr stable
#Lupus/scleroderma
#Minimal-change kidney disease
Continue prednisone
#Gastroesophageal reflux disease
Continue PPI
DVT prophylaxis�SCDs/LYRIC stockings (would avoid chemical DVT prophylaxis due to thrombocytopenia- can reconsider if thrombocytopenia improves)
Full code
discussed with Patient at bedside and patient's son Juan over phone
Total time spent to see the patient on the floor, examine the patient, review data and lab results, discuss treatment plan with patient, nursing staff around 55 minutes.
Physical Exam
General: Well Developed, Well Nourished and No Apparent Distress
HEENT: NormoCephalic, Anicteric, Moist mucous membranes
Respiratory: Clear
Cardiac: S1/S2 and Regular Rhythm
GI: Soft, Non Tender, Non Distended and Normal Bowel Sounds
Musculoskeletal: No Clubbing, No Cyanosis, No edema
Skin: Warm and Dry
Neuro: Awake, Alert and Oriented
Psych: Calm
Anticipated Discharge: 24 - 48 hours
Subjective/Interval History
-
Date of Service: August 22, 2023
No acute distress sitting up comfortably in chair. Reports overall feeling well. Continues to have dark bowel movements.
Objective Data
-
Labs:
Laboratory Results
08/22/23
06:00
WBC Pending
Hgb Pending
Hct Pending
Plt Count Pending
Sodium Pending
Potassium Pending
Chloride Pending
Carbon Dioxide Pending
BUN Pending
Creatinine Pending
Glucose Pending
Calcium Pending
Vital Signs:
Vital Signs
Temp Pulse Resp BP Pulse Ox
97.7 F 96 18 116/63 96
08/21/23 23:00 08/21/23 23:00 08/21/23 23:00 08/21/23 23:00 08/21/23 23:00
I&O
08/20/23 08/21/23 08/22/23
06:59 06:59 06:59
Intake Total 2099 / 2099 1215 / 1215 1270 / 1270
Output Total 1800 / 1800 1050 / 1050 1725 / 1725
Balance 300 / 300 165 / 165 -455 / -455
[2023-08-22 06:58] LABS: Hematocrit 23.2 % (37.0-47.0); Hemoglobin 7.5 g/dL (12.0-16.0); Mean Corp Hgb Conc. 32.3 g/dL (33.0-37.0); Mean Corpuscular Hgb 32.1 pg (27.0-31.0); Mean Corpuscular Volume 99.1 fL (81.0-99.0); Mean Platelet Volume 10.7 fL (7.4-10.4); Platelet Count 75 10^3/uL (130-400); Red Blood Cell Count 2.34 10^6/uL (4.20-5.40); Red Cell Dist. Width 22.7 % (11.5-14.5); White Blood Cell Count 8.4 10^3/uL (4.8-10.8)
[2023-08-22 07:23] LABS: Blood Urea Nitrogen 39 mg/dl (7-17); Calcium 8.8 mg/dl (8.4-10.2); Carbon Dioxide 31 mmol/L (22-30); Chloride 98 mmol/L (98-107); Estimated Creatinine Clearance 48 ml/min; Glucose 87 mg/dl (70-99); Magnesium 2.2 mg/dl (1.6-2.3); Phosphorus 3.8 mg/dl (2.5-4.5); Potassium 4.1 mmol/L (3.5-5.1); Sodium 133 mmol/L (135-145); eGFR > 60.00
[2023-08-22 07:45] VITALS: BP 105/56
[2023-08-22] MEDS: NON-FORMULARY ITEM 5 MG PO (08:11)
[2023-08-22] MEDS: REVATIO 20 MG PO ×3 (08:12→21:07)
[2023-08-22] MEDS: DELTASONE 70 MG PO (08:12)
[2023-08-22] MEDS: LASIX 60 MG PO (08:13)
[2023-08-22] MEDS: PROTONIX 40 MG PO ×2 (08:14→19:42)
[2023-08-22] MEDS: MIRALAX PO (08:16)
--- NOTE | 2023-08-22 11:44 | CON.CAR ---
Consultation
Consultation Request
Date/Time Consultation Requested: August 22, 2023
Date/Time Consultation Performed: August 22, 2023
Requesting Provider: Hospitalist
Performing Provider: Nellie
Reason for Consultation: Preoperative clearance for endoscopic procedure
Medical History
-
Chief Complaint: Preoperative clearance for endoscopic procedure
History of Present Illness:
73-year-old female with a history of significant pulmonary hypertension we were consulted for preoperative assessment for endoscopic evaluation of anemia. She is here with a hemoglobin of 7.3 and is being evaluated by gastroenterology. Her recent
testing and past medical history as below. The patient denies any shortness of breath, dyspnea on exertion, arrhythmia or chest pressure when seen. She deferred remainder of physical exam as per note.
Primary Rattling Machine Tender: Dr. Obrien/Dr. Diann Bledsoe
PMhx
Presentation for L renal biopsy for proteinuria, microscopic hematuria
B/L hydronephrosis by CTAP
Small left renal perinephric hematoma
Sepsis
Hypotension, requiring pressor support
Acute anemia
pulmonary hypertension, WHO Group 1 associated with crest, on revatio
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
chronic heart failure with improved EF
recovered nonischemic cardiomyopathy
CKD stage 3A
hypertension
hyperlipidemia
GERD
osteoarthritis
history of bilateral PE status post IVC filter in 2007
RHC 03/26/23 showed Severe pulmonary hypertension with minimally elevated left-sided filling pressures
ECHO 08/04/22: EF 50%, mild LVH with septal flattening, MAC, mild to moderate MR, mildly dilated left atrium, aortic sclerosis, mild AR, dilated and hypokinetic RV with RV H, dilated right atrium, moderate to severe TR, severe pulmonary hypertension,
PAP 7984 mmHg, mildly dilated pulmonary artery with mild to moderate pulmonary regurgitation
Past Medical History
Past Medical History: HTN and Hypercholesterolemia
Social History
Tobacco: Non-Smoker
Alcohol: None
Drug: None
Personal: Other
Living: Other
Employment: Not Employed
Family History
Family History: Reviewed & Not Pertinent
Allergies / Home Medications
Allergy/AdvReac Type Severity Reaction Status Date / Time
No Known Allergies Allergy Verified 07/12/23 12:25
�Medication �Instructions �Recorded �Confirmed �Type
esomeprazole magnesium 20 mg 20 mg PO QPM GERD 03/10/22 08/14/23 History
capsule,delayed release (Nexium)
ferrous sulfate 325 mg (65 mg 325 mg PO DAILY Supplement 03/10/22 08/14/23 History
iron) tablet (Iron (ferrous
sulfate))
simvastatin 20 mg tablet 20 mg PO HS High cholesterol 03/10/22 08/14/23 History
cranberry extract 200 mg capsule 200 mg PO DAILY Supplement 09/10/22 08/14/23 History
(Ellura)
furosemide 40 mg tablet (Lasix) 60 mg PO DAILY Fluid 03/26/23 08/14/23 History
Retention/Swelling
sildenafil (pulm.hypertension) 20 20 mg PO TID pulmonary hypertension 05/24/23 08/14/23 History
mg tablet
ambrisentan 5 mg tablet 5 mg PO DAILY 05/25/23 08/14/23 History
metoprolol succinate 25 mg 12.5 mg (1/2 x 25 mg) PO DAILY 30 06/01/23 08/14/23 Rx
tablet,extended release 24 hr days #15 tabs
acetaminophen 500 mg tablet 1,000 mg PO HS 08/14/23 08/14/23 History
(Tylenol Extra Strength)
cyanocobalamin (vitamin B-12) 1,000 mcg IM WE 08/14/23 08/14/23 History
1,000 mcg/mL injection solution
prednisone 50 mg tablet 70 mg PO DAILY 08/14/23 08/14/23 History
sulfamethoxazole 800 1 tab PO MOWEFR@0800 08/14/23 08/14/23 History
mg-trimethoprim 160 mg tablet
(Bactrim DS)
Review of Systems
-
All other systems: Negative unless noted
Constitutional: No Symptoms
Respiratory: No Symptoms
Cardiac: No Symptoms
Physical Exam
Vital Signs
Temp Pulse Resp BP Pulse Ox
98.1 F 103 17 105/56 100
08/22/23 07:45 08/22/23 08:13 08/22/23 07:45 08/22/23 08:13 08/22/23 10:05
Lab Results
08/22/23 06:45
08/22/23 06:45
Physical Exam
General: Well Developed, Well Nourished and No Apparent Distress
HEENT: Normocephalic and Anicteric
Respiratory: Other (Deferred as the patient was on the commode)
Cardiac: Other (Deferred as the patient was on the commode)
GI: Soft and Non Distended
Musculoskeletal: No Clubbing and No Cyanosis
Skin: Warm and Dry
Neuro: Awake, Alert and Oriented
Hematologic/Lymphatic: No Lymphadenopathy
Psych: Calm
Impression / Plan
-
Primary Rattling Machine Tender: Dr. Obrien/Dr. Diann Bledsoe
Impression:
Acute anemia
Nonoperative management of fracture
History of proteinuria, microscopic hematuria
B/L hydronephrosis by CTAP
Small left renal perinephric hematoma
History of sepsis
pulmonary hypertension, WHO Group 1 associated with crest, on revatio
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
chronic heart failure with improved EF
recovered nonischemic cardiomyopathy
CKD stage 3A
hypertension
hyperlipidemia
GERD
osteoarthritis
history of bilateral PE status post IVC filter in 2007
RHC 03/26/23 showed Severe pulmonary hypertension with minimally elevated left-sided filling pressures
ECHO 08/04/22: EF 50%, mild LVH with septal flattening, MAC, mild to moderate MR, mildly dilated left atrium, aortic sclerosis, mild AR, dilated and hypokinetic RV with RV H, dilated right atrium, moderate to severe TR, severe pulmonary hypertension,
PAP 7984 mmHg, mildly dilated pulmonary artery with mild to moderate pulmonary regurgitation
Plan:
Stable from cardiac standpoint. We typically do not routinely perform preoperative assessment or clearance for endoscopic procedures. However as we are requested to see the patient prior to endoscopic procedure Wednesday we would allow Ms. Nash to
proceed to her endoscopy to evaluate her acute and significant anemia. She has no active symptoms suggesting unstable cardiac disease although she has very advanced cardiac disease and pulmonary hypertension as well as rheumatologic disease at
baseline. As such we could not resolve or mitigate all risk for any endoscopy procedures. We would require no further testing for her to proceed and please let us know if any issues arise postoperatively.
Data Reviewed
-
EKG: Tracing Personally Visualized and interpreted
Medical Tests (Nuc Med, Echo etc): Image Personally Visualized and interpreted
Labs: Labs Reviewed by me
Old Records: Reviewed
--- NOTE | 2023-08-22 13:00 | W.PN.GI.CBS2 ---
Today's Communication / Plan
-
push enteroscopy tomorrow
Assessment / Plan
-
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
osteoarthritis who presents to the emergency room on 08/15/2023 after mechanical fall with resultant right periprosthetic proximal femur fraction about the HOMAR. Orthopedics saw her, the prosthetic is well-seated. Who recommended PT, OT with
weightbearing as tolerated on a walker with no active or passive abduction or abduction. The patient was already seen by hematology on 08/15/2023 as the patient initially had a hemoglobin that went from 8.7 down to 6.5. She also had platelets that
were in the 50s (of note patient's platelets were already 62 on 07/12/2023. Patient's baseline hemoglobin on 07/12/2023 was 10.0. The patient was transfused packed red blood cells. Started B12 supplement. Started oral iron. Possible bone marrow
biopsy for bicytopenia as an outpatient. Patient apparently had a history of anemia acute on chronic slowly progressing over years. We are asked to evaluate for continued anemia. The patient was transfused 1 unit of packed red blood cells on
08/16/2023 for hemoglobin of 6.5. This went up to 7.7. On 08/18/2023 hemoglobin went down to 7.1 and she was transfused another unit of packed red blood cells at that time. Hemoglobin went up to 8.1. Since this time this is stayed in the 8.1-7.8
range. Her platelets have remained in the 50-60 range. Her BUN has been slowly creeping up starting at about 25 and has been progressively increasing and is 46 today. Creatinine started at 0.9 and has gone up slightly to 1.1 today. She has
normal LFTs. Normal LDH. I did check her stool for occult blood and this was positive.
Pt continues to report melena. Hgb 7.5. Evaluated by pulmonary and cardiology, acceptable risk pt for planned endo tomorrow. Will plan for push enteroscopy tomorrow.
Total Time Spent with Patient (in minutes): 35
Subjective
Subjective
Date of Service: August 22, 2023
continues to have melena
Objective
Data Reviewed
Laboratory Data:
Laboratory Results
08/22/23 06:45
08/22/23 06:45
Laboratory Results
APTT 19.2 Sec (23.4-35.0) L 08/20/23 16:46
Phosphorus 3.8 mg/dl (2.5-4.5) 08/22/23 06:45
Magnesium 2.2 mg/dl (1.6-2.3) 08/22/23 06:45
Total Bilirubin 0.9 mg/dl (0.2-1.3) 08/15/23 06:37
AST 19 U/L (14-36) 08/15/23 06:37
ALT 19 U/L (0-35) 08/15/23 06:37
Alkaline Phosphatase 72 U/L (38-126) 08/15/23 06:37
Vital Signs and I&O:
Vital Signs
Temp Pulse Resp BP Pulse Ox
98.1 F 103 17 105/56 100
08/22/23 07:45 08/22/23 08:13 08/22/23 07:45 08/22/23 08:13 08/22/23 10:05
I&O
08/21/23 08/22/23 08/23/23
06:59 06:59 06:59
Intake Total 1215 / 1215 1270 / 1270
Output Total 1050 / 1050 1725 / 1725
Balance 165 / 165 -455 / -455
[2023-08-22] MEDS: FERRLECIT 110 MG IV (13:13)
[2023-08-22 15:35] VITALS: BP 103/61
[2023-08-22 15:39] VITALS: BP 103/61; PULSE 111; O2SAT 97
[2023-08-22] MEDS: LIPITOR 10 MG PO (21:07)
[2023-08-22 23:39] VITALS: BP 108/62
[2023-08-23] VITALS (10 sets, daily range): BP systolic 79–112; BP diastolic 59–66; BMI 27.0
[2023-08-23 07:11] LABS: IgA 127 mg/dL (68-408); IgG 280 mg/dL (768-1632); IgM 13 mg/dL (35-263)
[2023-08-23 07:36] LABS: Hematocrit 23.2 % (37.0-47.0); Hemoglobin 7.3 g/dL (12.0-16.0); Mean Corp Hgb Conc. 31.5 g/dL (33.0-37.0); Mean Corpuscular Hgb 32.4 pg (27.0-31.0); Mean Corpuscular Volume 103.1 fL (81.0-99.0); Mean Platelet Volume 10.7 fL (7.4-10.4); Platelet Count 69 10^3/uL (130-400); Red Blood Cell Count 2.25 10^6/uL (4.20-5.40); Red Cell Dist. Width 22.6 % (11.5-14.5); White Blood Cell Count 7.7 10^3/uL (4.8-10.8)
[2023-08-23] MEDS: TYLENOL PO (08:00)
[2023-08-23] MEDS: REVATIO PO (08:00)
[2023-08-23 08:18] LABS: Blood Urea Nitrogen 38 mg/dl (7-17); Calcium 8.8 mg/dl (8.4-10.2); Carbon Dioxide 33 mmol/L (22-30); Chloride 98 mmol/L (98-107); Estimated Creatinine Clearance 53 ml/min; Glucose 75 mg/dl (70-99); Magnesium 2.3 mg/dl (1.6-2.3); Phosphorus 3.7 mg/dl (2.5-4.5); Potassium 3.7 mmol/L (3.5-5.1); Sodium 133 mmol/L (135-145); eGFR > 60.00
--- NOTE | 2023-08-23 09:09 | W.PN.HOSP.TC ---
Today's Communication/Plan
-
For push enteroscopy today
Assessment / Plan
Assessment / Plan
HPI: 73-year-old female with a past medical history of minimal-change kidney disease, lupus/scleroderma overlap, CHF, hypertension, and hyperlipidemia presents with a mechanical fall. Patient reports losing her balance in the morning, and fell.
Denies loss of consciousness, denies hitting her head. She did hit her neck, and has a bruise. No fever. No chest pain, no shortness of breath. 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
#Acute right periprosthetic proximal femur fracture
Appreciate orthopedic surgery input, recommend conservative management with PT, pain control
PT�weightbearing as tolerated on walker
NO active/passive abduction or adduction (as this will put stress on the fracture).
PT/OT/PMR eval appreciated Acute Rehab
#Acute blood loss anemia from hip fracture and ecchymosis of right neck superimposed on chronic megaloblastic anemia
#B12 deficiency
#Possible GIB
Hemoglobin 6.5 transfused 1 unit of packed red blood cells, responded appropriately
methylmalonic acid pending
cont B12 supplementation (patient was recently started on weekly IM injections, 2nd dose so far), repeat B12 level in 1 mo recommended
08/17 Hgb dropped from 7.7 to 7.1 repeated PRBC transfusion with appropriate response 8.1, H&H however gradually trending down again, is 7.3 today
Hematology eval appreciated oral Iron switched to IV
GI eval appreciated plans for push enteroscopy today Mon 08/22
cardio pulm risk assessments appreciated
#Thrombocytopenia
Seen by hematology, differential diagnosis includes medication reaction to Bactrim, versus immune mediated, versus B12/folate deficiency
home ppx Bactrim placed on hold as per Hematology, outpt follow up for possible bone marrow bx recommended
Plt improving
#History of CHF
Continue home Lasix
Monitor fluid status, trend weights
#Hyponatremia
Fluid restrict, TSH wnl, a.m. cortisol wnl
Na improved low 130s stable
#Hypokalemia
Monitor and Replete as necessary
#Chronic urinary retention with chronic Savage upon admission
Has had Savage since May 2023
#Right neck ecchymosis
Monitor
#Coccyx pain
Likely from trauma
Patient declines Sacral x-ray
Continue pain meds
#Pulmonary hypertension
Continue Ambrisentan, sildenafil
#Stage III chronic kidney disease
Cr stable
#Lupus/scleroderma
#Minimal-change kidney disease
Continue prednisone
#Gastroesophageal reflux disease
Continue PPI
DVT prophylaxis�SCDs/LYRIC stockings (would avoid chemical DVT prophylaxis due to thrombocytopenia- can reconsider if thrombocytopenia improves)
Full code
Total time spent to see the patient on the floor, examine the patient, review data and lab results, discuss treatment plan with patient, nursing staff around 38 minutes.
Physical Exam
General: Well Developed, Well Nourished and No Apparent Distress
HEENT: NormoCephalic, Anicteric, Moist mucous membranes
Respiratory: Clear
Cardiac: S1/S2 and Regular Rhythm
GI: Soft, Non Tender, Non Distended and Normal Bowel Sounds
Musculoskeletal: No Clubbing, No Cyanosis
Bilateral lower extremity edema noted
Skin: Warm and Dry
Neuro: Awake, Alert and Oriented
Psych: Calm
Anticipated Discharge: 24 - 48 hours
Subjective/Interval History
-
Date of Service: August 23, 2023
Patient denies chest pain, denies shortness of breath. No fever, no vomiting.
Objective Data
-
Labs:
Laboratory Results
08/23/23
06:09
WBC 7.7
Hgb 7.3 L
Hct 23.2 L
Plt Count 69 L
Sodium 133 L
Potassium 3.7
Chloride 98
Carbon Dioxide 33 H
BUN 38 H
Creatinine 0.9
Glucose 75
Calcium 8.8
Vital Signs:
Vital Signs
Temp Pulse Resp BP Pulse Ox
98.1 F 92 18 100/60 96
08/23/23 07:23 08/23/23 07:23 08/23/23 07:23 08/23/23 07:23 08/23/23 07:23
I&O
08/22/23 08/23/23 08/24/23
06:59 06:59 06:59
Intake Total 1270 / 1270 920 / 920
Output Total 1725 / 1725 2049
Balance -455 / -455 -1130 / -1130
--- NOTE | 2023-08-23 13:09 | CM ---
manager linux reviewed patient's chart and spoke with patient this am and spoke with admissions at [facility], discharge is on hold patient for testing. Plan remains for acute rehab placement when stable at [facility].
Plan; [facility] acute rehab when stable.
--- NOTE | 2023-08-23 13:45 | W.PN.CARDCBS ---
Today's Communication / Plan
-
stable for endoscopy
Impression / Plan
-
Primary Grain Operations Manager: Dr. Obrien/Dr. Diann Bledsoe
Impression:
Acute anemia
Nonoperative management of fracture
History of proteinuria, microscopic hematuria
B/L hydronephrosis by CTAP
Small left renal perinephric hematoma
History of sepsis
pulmonary hypertension, WHO Group 1 associated with crest, on revatio
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
chronic heart failure with improved EF
recovered nonischemic cardiomyopathy
CKD stage 3A
hypertension
hyperlipidemia
GERD
osteoarthritis
history of bilateral PE status post IVC filter in 2007
RHC 03/26/23 showed Severe pulmonary hypertension with minimally elevated left-sided filling pressures
ECHO 08/04/22: EF 50%, mild LVH with septal flattening, MAC, mild to moderate MR, mildly dilated left atrium, aortic sclerosis, mild AR, dilated and hypokinetic RV with RV H, dilated right atrium, moderate to severe TR, severe pulmonary hypertension,
PAP 7984 mmHg, mildly dilated pulmonary artery with mild to moderate pulmonary regurgitation
Plan:
She remains stable and compensated from a cardiac standpoint for endscopic/GI procedures.
She is acceptable cardiac risk and compensated.
Echo performed today, August 23 2023: Normal left ventricular size, wall thickness and systolic function. No regional wall motion abnormalities are seen. LV ejection fraction is 58%.
Mild mitral regurgitation. Mild to moderate aortic regurgitation. Moderate tricuspid regurgitation. Estimated pulmonary artery pressure of 45-50 mmHg. Compared to the previous echo from July 2022, MR was mild to moderate, TR was mod to severe and
PASP was 79-84mmHg and they are now improved.
Will confirm outpt cardiac follow up.
Progress Note - Grain Operations Manager
Subjective
Date of Service: August 23, 2023
Pt seen and examined. No complaints. No chest pain or shortness of breath.
Objective
Labs:
08/23/23 06:09
08/23/23 06:09
Labs
Hgb 7.3 g/dL (12.0-16.0) L 08/23/23 06:09
Hct 23.2 % (37.0-47.0) L 08/23/23 06:09
Plt Count 69 10^3/uL (130-400) L 08/23/23 06:09
APTT 19.2 Sec (23.4-35.0) L 08/20/23 16:46
Sodium 133 mmol/L (135-145) L 08/23/23 06:09
Potassium 3.7 mmol/L (3.5-5.1) 08/23/23 06:09
BUN 38 mg/dl (7-17) H 08/23/23 06:09
Creatinine 0.9 mg/dL (0.6-1.0) 08/23/23 06:09
Glucose 75 mg/dl (70-99) 08/23/23 06:09
Vital Signs and I&O:
Vital Signs
Temp Pulse Resp BP Pulse Ox
98.1 F 92 18 100/60 96
08/23/23 07:23 08/23/23 07:23 08/23/23 07:23 08/23/23 07:23 08/23/23 07:23
Vital Signs
Temp Pulse Resp BP Pulse Ox
98.1 F 92 18 100/60 96
08/23/23 07:23 08/23/23 07:23 08/23/23 07:23 08/23/23 07:23 08/23/23 07:23
Intake & Output
08/21/23 08/22/23 08/23/23 08/24/23
06:59 06:59 06:59 06:59
Intake Total 1215 / 1215 1270 / 1270 920 / 920
Output Total 1050 / 1050 1725 / 1725 2050 / 2050
Balance 165 / 165 -455 / -455 -1130 / -1130
Physical Exam
Physical Exam
General: No acute distress, AAOX3
Neck: Negative JVD
Heart: Regular, Negative S3 positive S1/S2, Negative S4, No murmur
Lungs: CTA b/l, negative wheezes/rales/rhonchi
Abd: Positive BS, NT/ND, neg rebound/rigidity/guarding
Ext: Negative cyanosis/clubbing/edema
Neuro: nonfocal
[2023-08-23] MEDS: MIRALAX PO (17:34)
[2023-08-23] MEDS: FERRLECIT 110 MG IV (17:35)
[2023-08-23] MEDS: TYLENOL 1000 MG PO ×2 (17:36→21:15)
[2023-08-23] MEDS: REVATIO 20 MG PO ×2 (17:36→21:15)
[2023-08-23] MEDS: LASIX 60 MG PO (17:37)
[2023-08-23] MEDS: DELTASONE 70 MG PO (17:37)
[2023-08-23] MEDS: NON-FORMULARY ITEM 5 MG PO (17:39)
[2023-08-23] MEDS: PROTONIX 40 MG PO ×2 (17:39→21:15)
[2023-08-23] MEDS: LIPITOR 10 MG PO (21:15)
[2023-08-24] VITALS (7 sets, daily range): BP systolic 82–110; BP diastolic 53–66; BMI 26.7
[2023-08-24 07:13] LABS: Hematocrit 23.4 % (37.0-47.0); Hemoglobin 7.6 g/dL (12.0-16.0); Mean Corp Hgb Conc. 32.5 g/dL (33.0-37.0); Mean Corpuscular Hgb 32.8 pg (27.0-31.0); Mean Corpuscular Volume 100.9 fL (81.0-99.0); Mean Platelet Volume 10.7 fL (7.4-10.4); Platelet Count 77 10^3/uL (130-400); Red Blood Cell Count 2.32 10^6/uL (4.20-5.40); Red Cell Dist. Width 22.3 % (11.5-14.5); White Blood Cell Count 7.2 10^3/uL (4.8-10.8)
[2023-08-24 08:19] LABS: Blood Urea Nitrogen 36 mg/dl (7-17); Calcium 8.5 mg/dl (8.4-10.2); Carbon Dioxide 28 mmol/L (22-30); Chloride 97 mmol/L (98-107); Estimated Creatinine Clearance 53 ml/min; Glucose 123 mg/dl (70-99); Magnesium 2.1 mg/dl (1.6-2.3); Phosphorus 4.6 mg/dl (2.5-4.5); Potassium 3.8 mmol/L (3.5-5.1); Sodium 132 mmol/L (135-145); eGFR > 60.00
--- NOTE | 2023-08-24 09:09 | W.PN.HOSP.TC ---
Today's Communication/Plan
-
Transfuse 1 unit of packed red blood cells
Discharge to acute rehab tomorrow
Assessment / Plan
Assessment / Plan
HPI: 73-year-old female with a past medical history of minimal-change kidney disease, lupus/scleroderma overlap, CHF, hypertension, and hyperlipidemia presents with a mechanical fall. Patient reports losing her balance in the morning, and fell.
Denies loss of consciousness, denies hitting her head. She did hit her neck, and has a bruise. No fever. No chest pain, no shortness of breath. 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
#Acute right periprosthetic proximal femur fracture
Appreciate orthopedic surgery input, recommend conservative management with PT, pain control
PT�weightbearing as tolerated on walker
NO active/passive abduction or adduction (as this will put stress on the fracture).
Plan for discharge to acute rehab tomorrow
#Acute blood loss anemia from hip fracture and ecchymosis of right neck superimposed on chronic megaloblastic anemia
#B12 deficiency
#Possible GIB
Cont B12 supplementation (patient was recently started on weekly IM injections, 2nd dose so far), repeat B12 level in 1 mo recommended
Patient has received 2 units of packed red blood cells this admission, hemoglobin downtrending to 7.6
Transfuse third unit today 08/23
Hematology eval appreciated oral Iron switched to IV, recommend outpatient bone marrow biopsy
Appreciate GI input, status post push enteroscopy 08/22 showing esophagitis, large hiatal hernia, single spot with no bleeding in the duodenum treated with argon plasma coagulation
GI recommends outpatient follow-up for colonoscopy
#Thrombocytopenia
Seen by hematology, differential diagnosis includes medication reaction to Bactrim, versus immune mediated, versus B12/folate deficiency
home ppx Bactrim placed on hold as per Hematology, recommend outpatient bone marrow biopsy
Plt improving
#History of CHF
Continue home Lasix
Monitor fluid status, trend weights
#Hyponatremia
Fluid restrict, TSH wnl, a.m. cortisol wnl
Na improved low 130s stable
#Hypokalemia
Monitor and Replete as necessary
#Chronic urinary retention with chronic Savage upon admission
Has had Savage since May 2023
#Right neck ecchymosis
Monitor
#Coccyx pain
Likely from trauma
Patient declines Sacral x-ray
Continue pain meds
#Pulmonary hypertension
Continue Ambrisentan, sildenafil
#Stage III chronic kidney disease
Cr stable
#Lupus/scleroderma
#Minimal-change kidney disease
Continue prednisone
#Gastroesophageal reflux disease
Continue PPI
DVT prophylaxis�SCDs/LYRIC stockings (would avoid chemical DVT prophylaxis due to thrombocytopenia- can reconsider if thrombocytopenia improves)
Full code
Updated son on phone 08/22
Total time spent to see the patient on the floor, examine the patient, review data and lab results, discuss treatment plan with patient, nursing staff around 51 minutes.
Physical Exam
General: Well Developed, Well Nourished and No Apparent Distress
HEENT: NormoCephalic, Anicteric, Moist mucous membranes
Respiratory: Clear
Cardiac: S1/S2 and Regular Rhythm
GI: Soft, Non Tender, Non Distended and Normal Bowel Sounds
Musculoskeletal: No Clubbing, No Cyanosis
Bilateral lower extremity edema noted
Skin: Warm and Dry
Neuro: Awake, Alert and Oriented
Psych: Calm
Anticipated Discharge: Within 24 hours
Subjective/Interval History
-
Date of Service: August 24, 2023
Patient reports feeling tired from not sleeping. No fever, no vomiting.
Objective Data
-
Labs:
Laboratory Results
08/24/23
05:51
WBC 7.2
Hgb 7.6 L
Hct 23.4 L
Plt Count 77 L
Sodium 132 L
Potassium 3.8
Chloride 97 L
Carbon Dioxide 28
BUN 36 H
Creatinine 0.9
Glucose 123 H
Calcium 8.5
Vital Signs:
Vital Signs
Temp Pulse Resp BP Pulse Ox
98.9 F 97 17 96/53 96
08/24/23 07:35 08/24/23 07:35 08/24/23 07:35 08/24/23 07:35 08/24/23 07:35
I&O
08/23/23 08/24/23 08/25/23
06:59 06:59 06:59
Intake Total 920 / 920 985 / 985
Output Total 2049 2175 / 217
Balance -1130 / -1130 -1190 / -1190
[2023-08-24] MEDS: TYLENOL 1000 MG PO ×3 (09:26→21:10)
[2023-08-24] MEDS: REVATIO 20 MG PO ×3 (09:29→21:10)
[2023-08-24] MEDS: PROTONIX 40 MG PO ×2 (09:30→19:27)
[2023-08-24] MEDS: MIRALAX 17 GRAMS PO (09:30)
[2023-08-24] MEDS: DELTASONE 70 MG PO (09:32)
[2023-08-24] MEDS: NON-FORMULARY ITEM 5 MG PO (09:34)
[2023-08-24] MEDS: LASIX 60 MG PO (09:37)
--- NOTE | 2023-08-24 11:01 | CM ---
Plan is acute rehab at [facility] when stable.
[facility]
Report [phone]
--- NOTE | 2023-08-24 12:25 | W.PN.UPDATE ---
Update Note
Progress Note Update
Patient tolerated upper endoscopy yesterday. Patient is ordered med/surg and has not been on tele. Patient already scheduled to see cardiology for PHTN follow up in about 6 weeks. No additional cardiac recommendations.
[2023-08-24] MEDS: FERRLECIT 110 MG IV (13:45)
[2023-08-24] MEDS: FLUSH (NSS) 1 FLUSH IV (13:46)
--- NOTE | 2023-08-24 14:11 | W.PN.ONC ---
Today's Communication / Plan
-
EGD and small bowel push findings noted. Potential bleeding sites, but no overt bleeding. She also has a suboptimal bone marrow response. She may very well have a primary bone marrow process such as a low-grade myelodysplasia. Suspect we will do
a bone marrow as an outpatient.
Impression
Impression
Anemia, acute on chronic, slowly progressive over years
Thrombocytopenia
B12 deficiency
Traumatic right hip fracture -nonsurgical management
Plan
Plan
# thrombocytopenia
- pt with several possible Etiologies were thrombocytopenia including sequestration with hematoma involving right neck, left renal biopsy site, medication induced this timing coincides with initiation of prophylactic Bactrim. Thrombocytopenia can
also be seen with lupus anticoagulant which she may be at higher risk for with underlying autoimmune conditions.
- check LA, PTT to see if prolonged.
- recommended holding bactrim for at least 2 weeks to see if this results in count recovery. I would favor not starting alternative abx for now however if plts to recover then switching to alternative option such as dapson, atovaquone.
- plts overall stable/slightly better today at 60K. continue to monitor daily.
# Anemia
- new since May with fluctuation, last required pRBCS on 08/15.
- multifactorial with blood loss from right neck hematoma, left renal bx hematoma, right hip fx and OB positive stool on chronic high dose prednisone with moderate sized hiatal hernia in the setting of thrombocytopenia.
- GI consulted, considering EGD wednesday. with ferritin 59.4 I suspect she would respond to iron repletion. I will order for IV iron while inpt (will hold home PO iron while giving IV).
Subjective/Objective
Subjective/Objective
She is feeling reasonably well. She reports no new symptoms. Examination is unchanged.
Vital Signs:
Vital Signs
Temp Pulse Resp BP Pulse Ox
98.9 F 97 17 96/53 96
08/24/23 07:35 08/24/23 07:35 08/24/23 07:35 08/24/23 07:35 08/24/23 07:35
Lab Results:
Laboratory Data
WBC 7.2 10^3/uL (4.8-10.8) 08/24/23 05:51
Hgb 7.6 g/dL (12.0-16.0) L 08/24/23 05:51
Plt Count 77 10^3/uL (130-400) L 08/24/23 05:51
APTT 19.2 Sec (23.4-35.0) L 08/20/23 16:46
eGFR > 60.00 08/24/23 05:51
Orders
Orders
Orders From Last 24 Hours
08/25/23 06:00
Complete Blood Count/With Diff IN AM
Immunoglobulin Panel IN AM
Reticulocyte Count IN AM
[2023-08-24 14:41] LABS: Anti-Xa Qualitative Interp Not Performed (Not Present); Anticoagulant Med Neutralizati Not Performed (Not Performed); Hexagonal Phospholipid Confirm Not Performed s (<=7.9); Neutralized PTT-LA Ratio Not Performed (<=1.20); Neutralized dRVTT Screen Ratio Not Performed (<=1.20); PTT-LA Ratio 0.65 (<=1.20); Prothrombin Time 13.2 s (12.0-15.5); Thrombin Time Not Performed s (<=19.5); dRVTT 1.1 Mix Ratio Not Performed (<=1.20); dRVTT Confirmation Ratio Not Performed (<=1.20)
[2023-08-24] MEDS: LIPITOR 10 MG PO (21:10)
[2023-08-25 06:00] VITALS: BMI 27.3
[2023-08-25 08:00] VITALS: BP 97/52
[2023-08-25] MEDS: LASIX PO (08:00)
[2023-08-25] MEDS: NON-FORMULARY ITEM 5 MG PO (08:00)
--- NOTE | 2023-08-25 08:28 | W.PN.HOSP.TC ---
Today's Communication/Plan
-
Discharge to acute rehab today
Assessment / Plan
Assessment / Plan
HPI: 73-year-old female with a past medical history of minimal-change kidney disease, lupus/scleroderma overlap, CHF, hypertension, and hyperlipidemia presents with a mechanical fall. Patient reports losing her balance in the morning, and fell.
Denies loss of consciousness, denies hitting her head. She did hit her neck, and has a bruise. No fever. No chest pain, no shortness of breath. 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
#Acute right periprosthetic proximal femur fracture
Appreciate orthopedic surgery input, recommend conservative management with PT, pain control
PT�weightbearing as tolerated on walker
NO active/passive abduction or adduction (as this will put stress on the fracture).
Medically stable for discharge to acute rehab today
#Acute blood loss anemia from hip fracture and ecchymosis of right neck superimposed on chronic megaloblastic anemia
#B12 deficiency
#Possible GIB
Cont B12 supplementation (patient was recently started on weekly IM injections, 2nd dose so far), repeat B12 level in 1 mo recommended
Patient has received 2 units of packed red blood cells this admission, hemoglobin downtrending to 7.6
Status post third unit of packed red blood cells 08/23, hemoglobin 9.0 today, increased from 7.6
Hematology eval appreciated oral Iron switched to IV, recommend outpatient bone marrow biopsy
Ambrisentan can be associated with drop in hemoglobin in the first 3 months, but has no effects on platelets -this has been communicated to patient's manager fixed income, Dr. Brandon Bledsoe.
Appreciate GI input, status post push enteroscopy 08/22 showing esophagitis, large hiatal hernia, single spot with no bleeding in the duodenum treated with argon plasma coagulation
GI recommends outpatient follow-up for colonoscopy
#Thrombocytopenia
Seen by hematology, differential diagnosis includes medication reaction to Bactrim, versus immune mediated, versus B12/folate deficiency
home ppx Bactrim placed on hold as per Hematology, recommend outpatient bone marrow biopsy
Plt improving
#History of CHF
Will give 1 dose of Lasix 60 mg IV x 1 today due to patient receiving a total of 3 units of blood this admission, resume oral Lasix tomorrow
Monitor fluid status, trend weights
#Hyponatremia
Fluid restrict, TSH wnl, a.m. cortisol wnl
Na improved low 130s stable
#Hypokalemia
Monitor and Replete as necessary
#Chronic urinary retention with chronic Savage upon admission
Has had Savage since May 2023
#Right neck ecchymosis
Monitor
#Coccyx pain
Likely from trauma
Patient declines Sacral x-ray
Continue pain meds
#Pulmonary hypertension
Continue Ambrisentan, sildenafil
#Stage III chronic kidney disease
Cr stable
#Lupus/scleroderma
#Minimal-change kidney disease
Continue prednisone
#Gastroesophageal reflux disease
Continue PPI
DVT prophylaxis�SCDs/LYRIC stockings (would avoid chemical DVT prophylaxis due to thrombocytopenia- can reconsider if thrombocytopenia improves)
Full code
Updated son on phone 08/23
Physical Exam
General: Well Developed, Well Nourished and No Apparent Distress
HEENT: NormoCephalic, Anicteric, Moist mucous membranes
Respiratory: Clear
Cardiac: S1/S2 and Regular Rhythm
GI: Soft, Non Tender, Non Distended and Normal Bowel Sounds
Musculoskeletal: No Clubbing, No Cyanosis
Bilateral lower extremity edema noted
Skin: Warm and Dry
Neuro: Awake, Alert and Oriented
Psych: Calm
Anticipated Discharge: Today
Subjective/Interval History
-
Date of Service: August 25, 2023
Patient reports feeling better today after sleeping better. No fever, no vomiting.
Objective Data
-
Labs:
Laboratory Results
08/25/23
07:58
WBC Pending
Hgb Pending
Hct Pending
Plt Count Pending
Sodium Pending
Potassium Pending
Chloride Pending
Carbon Dioxide Pending
BUN Pending
Creatinine Pending
Glucose Pending
Calcium Pending
Vital Signs:
Vital Signs
Temp Pulse Resp BP Pulse Ox
98.1 F 98 18 97/52 100
08/25/23 08:00 08/25/23 08:00 08/25/23 08:00 08/25/23 08:00 08/25/23 08:00
I&O
08/24/23 08/25/23 08/26/23
06:59 06:59 06:59
Intake Total 985 / 985 1120 / 1120
Output Total 2175 / 2175 1325 / 1325
Balance -1190 / -1190 -205 / -205
[2023-08-25 08:51] LABS: % Basophils 0.3 % (0-2); % Eosinophils 0.3 % (0-6); % Lymphocytes 10.2 % (20.5-51.1); % Monocytes 5.2 % (1.7-9.3); Absolute Immature Granulocytes 0.3 10^3/uL (0-0.05); Absolute Lymphocytes 0.7 10^3/uL (1.2-3.4); Absolute Monocytes 0.4 10^3/uL (0.1-0.6); Absolute Neutrophils 5.8 10^3/uL (1.4-6.5); Mean Corp Hgb Conc. 32.1 g/dL (33.0-37.0); Mean Corpuscular Hgb 32.4 pg (27.0-31.0); Mean Corpuscular Volume 100.7 fL (81.0-99.0); Mean Platelet Volume 10.5 fL (7.4-10.4); Nucleated Red Blood Cells % 0.7 %; Platelet Count 72 10^3/uL (130-400); Red Blood Cell Count 2.78 10^6/uL (4.20-5.40); Red Cell Dist. Width 22.4 % (11.5-14.5); Reticulocyte Count 7.5 % (0.4-2.8); White Blood Cell Count 7.2 10^3/uL (4.8-10.8)
[2023-08-25 09:23] LABS: Blood Urea Nitrogen 37 mg/dl (7-17); Carbon Dioxide 28 mmol/L (22-30); Chloride 96 mmol/L (98-107); Estimated Creatinine Clearance 54 ml/min; Glucose 142 mg/dl (70-99); Phosphorus 3.4 mg/dl (2.5-4.5); Potassium 3.2 mmol/L (3.5-5.1); Sodium 132 mmol/L (135-145); eGFR > 60.00
--- NOTE | 2023-08-25 09:38 | CM ---
Patient has been accepted and bed is available at [facility] today, rn field case manager spoke with admissions at [facility] to confirm bed for patient.
Plan; Patient to transfer to [facility] today.
[facility]
Report [phone]
[2023-08-25] MEDS: DELTASONE 70 MG PO (09:49)
[2023-08-25] MEDS: PROTONIX 40 MG PO (09:51)
[2023-08-25] MEDS: FEOSOL 325 MG PO (09:51)
[2023-08-25] MEDS: REVATIO 20 MG PO ×2 (09:51→15:30)
[2023-08-25] MEDS: TYLENOL 1000 MG PO ×2 (09:51→15:29)
[2023-08-25] MEDS: CYANOCOBALAMIN 1000 MCG IM (10:38)
[2023-08-25] MEDS: OSCAL 500 + D 500 MG PO ×2 (10:38→15:30)
[2023-08-25] MEDS: KCL 40 MEQ PO (10:38)
[2023-08-25] MEDS: MIRALAX 17 GRAMS PO (10:38)
[2023-08-25] MEDS: KCL 260 MEQ IV (10:49)
[2023-08-25 10:53] LABS: Anisocytosis 2+; Macrocytosis Slight; Normal RBC Morphology No
[2023-08-25 10:54] LABS: Hypochromasia 1+; Ovalocytes Slight; Polychromasia Slight
--- NOTE | 2023-08-25 12:04 | W.PN.ONC ---
Addendum entered and electronically signed by Govind Worthington MD 08/25/23 12:11:
On further review, Ambrisentan has been associated with significant drops in hemoglobin in the first 3 months of treatment. She was started on it in May. I cannot find anything about its effect on platelets. This is a potential explanation.
According to the package insert, this effect may resolve after 3 months. I have communicated this to her project drilling engineer, Dr. Brandon Bledsoe.
Original Note:
Today's Communication / Plan
-
She is for transfer to [facility] today. They can monitor hematologically there. I told her it is possible she may need a transfusion even within the next week or 2. We will see her in the office shortly thereafter for further follow-up, possibly
a bone marrow if things do not resolve.
Impression
Impression
Anemia, acute on chronic, slowly progressive over years
Thrombocytopenia
B12 deficiency
Traumatic right hip fracture -nonsurgical management
Plan
Plan
# thrombocytopenia
- pt with several possible Etiologies were thrombocytopenia including sequestration with hematoma involving right neck, left renal biopsy site, medication induced this timing coincides with initiation of prophylactic Bactrim. Thrombocytopenia can
also be seen with lupus anticoagulant which she may be at higher risk for with underlying autoimmune conditions.
- check LA, PTT to see if prolonged.
- recommended holding bactrim for at least 2 weeks to see if this results in count recovery. I would favor not starting alternative abx for now however if plts to recover then switching to alternative option such as dapson, atovaquone.
- plts overall stable/slightly better today at 60K. continue to monitor daily.
# Anemia
- new since May with fluctuation, last required pRBCS on 08/15.
- multifactorial with blood loss from right neck hematoma, left renal bx hematoma, right hip fx and OB positive stool on chronic high dose prednisone with moderate sized hiatal hernia in the setting of thrombocytopenia.
- GI consulted, considering EGD wednesday. with ferritin 59.4 I suspect she would respond to iron repletion. I will order for IV iron while inpt (will hold home PO iron while giving IV).
Subjective/Objective
Subjective/Objective
She is feeling reasonably well. She reports no new symptoms. Physical examination is unchanged.
Vital Signs:
Vital Signs
Temp Pulse Resp BP Pulse Ox
98.1 F 98 18 97/52 100
08/25/23 08:00 08/25/23 08:00 08/25/23 08:00 08/25/23 08:00 08/25/23 08:00
Lab Results:
Laboratory Data
WBC 7.2 10^3/uL (4.8-10.8) 08/25/23 07:58
Hgb 9.0 g/dL (12.0-16.0) L 08/25/23 07:58
Plt Count 72 10^3/uL (130-400) L 08/25/23 07:58
APTT 19.2 Sec (23.4-35.0) L 08/20/23 16:46
eGFR > 60.00 08/25/23 07:58
Orders
Orders
Orders From Last 24 Hours
08/25/23 07:58
Complete Blood Count/With Diff IN AM
Immunoglobulin Panel IN AM
Reticulocyte Count IN AM
[2023-08-25] MEDS: LASIX 60 MG IV (12:25)
--- NOTE | 2023-08-25 13:19 | W.DCSUMMARY ---
Discharge Summary
Discharge Data
Date of Admission: 08/14/23
Date of Discharge: 08/25/23
-
Pending Results: Yes
Additional Pending Results:
Duodenal biopsies
Hospital Course
Discharge diagnosis:
Acute right periprosthetic proximal femur fracture
Acute blood loss anemia from hip fracture and ecchymosis of right neck superimposed on chronic megaloblastic anemia
Vitamin B12 deficiency
Black stools
Thrombocytopenia
History of congestive heart failure
Hyponatremia
Hypokalemia
Chronic urinary retention with chronic Savage upon admission
Pulmonary hypertension
Stage III chronic kidney disease
Lupus/scleroderma
Minimal-change disease
Gastroesophageal reflux disease with severe esophagitis
Consults: Orthopedic surgery, hematology, cardiology, GI, pulmonology
Procedures:
08/23/2023 push enteroscopy Impression:
- LA Grade D reflux esophagitis.
- Large hiatal hernia.
- No gross lesions in the entire stomach.
- Congested duodenal mucosa.
- Dilated lacteals were found in the duodenum.
- A single spot with no bleeding in the duodenum.
Unlikely angiectasia. Treated with argon plasma
coagulation (APC).
- Congested jejunal mucosa. Biopsied.
Hospital course:
73-year-old female with a past medical history of minimal-change kidney disease, lupus/scleroderma overlap, CHF, hypertension, and hyperlipidemia was admitted for an acute right periprosthetic proximal femur fracture status post mechanical fall.
Patient was seen in conjunction with orthopedic surgery, who recommends conservative management with pain control and PT. Patient was seen by PT, who recommends acute rehab.
Patient was found to have worsening anemia and thrombocytopenia upon admission. Patient was seen in conjunction with hematology. Patient is on Ambrisentan for pulmonary hypertension. This can be associated with a significant drop in hemoglobin in
the first 3 months of treatment. This has been relayed to patient's primary nut chopper Dr. Diann Bledsoe. However this would not explain her thrombocytopenia. Hematology recommends outpatient follow-up for bone marrow biopsy.
Patient was found to have severe iron deficiency anemia. She received IV iron while in the hospital, and can resume her oral iron upon discharge.
Patient reported black stools. She was seen in conjunction with GI. GI plan for push enteroscopy. She was seen in conjunction with cardiology and pulmonology for risk assessment to receive anesthesia. She had push enteroscopy on 08/23/2023,
showing esophagitis. She is on omeprazole 20 mg daily prior to admission. GI recommends pantoprazole 40 mg twice a day. GI also recommends follow-up in the office outpatient for colonoscopy once her acute issues have resolved.
Patient's hemoglobin was trended. It was 8.7 upon admission, and trended down to 6.5. She was transfused a total of 3 units of packed red blood cells. Her hemoglobin improved to 9.0 on the day of discharge.
Patient also had hyponatremia. Her sodium trended down to 130. TSH and a.m. cortisol were normal. She was treated with a fluid restriction, her sodium improved to 133 on the day of discharge.
Patient's multiple medical conditions have been optimized. She is stable for discharge to acute rehab. She needs to follow-up with hematology in the office for bone marrow biopsy, orthopedic surgery in the office to monitor her right hip fracture,
cardiology in the office, as well as GI. She has been instructed to follow-up with her primary care doctor 1 week after she leaves rehab. She needs to have a CBC checked with her PCP at that time.
Disposition: Acute rehab
Discharge planning: Required 55 minutes
Discharge Plan
-
Patient Disposition: Acute Rehab Facility
Discharge Diagnosis/Procedures: Traumatic right periprosthetic hip fracture, acute on chronic anemia, thrombocytopenia, vitamin B12 deficiency, pulmonary hypertension, hyponatremia, hypokalemia, chronic urinary retention with chronic Savage upon
admission, right neck ecchymosis, minimal-change kidney disease, lupus/scleroderma, gastroesophageal reflux disease, esophagitis
Condition: Fair
Diet: 2 Gram Sodium and Restrict fluids to 48 oz
Activity: As tolerated
Driving Restrictions: As prior to admission
Blood Work: CBC, CMP on 08/30/23 at the rehab, CBC with your PCP 1 week after you leave rehab
Activity Restrictions/Additional Instructions:
Please follow-up with hematology in the office in 1-2 weeks for outpatient bone marrow biopsy, call the office for an appointment.
Please follow-up with orthopedic surgery in the office in 3-4 weeks for monitoring of your hip fracture, call the office for an appointment.
Follow-up with your primary care doctor 1 week after you leave rehab. You will need blood work/CBC done at that time.
Follow-up with cardiology as well, your appointment has been scheduled.
GI recommends follow-up with them for colonoscopy once all other issues have been resolved.
Referrals:
Eren Rodriguez MD [Active] - in one to two weeks
Nataliia Mobley PA-C [Family Provider] - in one week
Tay Baldwin DO [Active] - in one to two weeks
Diann Bledsoe MD [Active] - 10/11/23 2:20 pm (You are scheduled to see Dr. Diann Bledsoe at the [facility] office on 10/11/23 at 2:20 PM. Please call [phone] if you need to reschedule.)
Prescriptions:
New
calcium carbonate-vitamin D3 [Oyster Shell Calcium-Vit D3] 500 mg-5 mcg (200 unit) Tablet
1 tab PO TID Qty: 0 0RF
ascorbic acid (vitamin C) [Vitamin C] 500 mg tablet
500 mg PO NOON Qty: 30 0RF
pantoprazole 40 mg Tablet,Delayed Release (Dr/Ec)
40 mg PO BID Qty: 60 0RF
Continued
simvastatin 20 mg Tablet
20 mg PO HS
Hold Instructions: Resume on 06/15/23.
cranberry extract [Ellura] 200 mg Capsule
200 mg PO DAILY
furosemide [Lasix] 40 mg tablet
60 mg PO DAILY
sildenafil (pulm.hypertension) 20 mg Tablet
20 mg PO TID
ambrisentan 5 mg Tablet
5 mg PO DAILY
metoprolol succinate 25 mg Tablet Extended Release 24 Hr
12.5 mg PO DAILY 30 Days Qty: 15 0RF
cyanocobalamin (vitamin B-12) 1,000 mcg/mL Solution
1,000 mcg IM WE
prednisone 50 mg Tablet
70 mg PO DAILY
Changed
acetaminophen [Tylenol Extra Strength] 500 mg Tablet
1,000 mg PO TID Qty: 0 0RF
ferrous sulfate [Iron (ferrous sulfate)] 325 mg (65 mg iron) Tablet
325 mg PO NOON Qty: 0 0RF
Discontinued
esomeprazole magnesium [Nexium] 20 mg Capsule,Delayed Release(Dr/Ec)
20 mg PO QPM
sulfamethoxazole-trimethoprim [Bactrim DS] 800-160 mg Tablet
1 tab PO MOWEFR@0800
Discharge Orders:
Discharge Patient (As Directed); Ordered 08/25/23
Ordered By: Lincoln Vallejo
Discharge Date and Time
Discharge Date/Time: 08/25/23 16:31
Print Language: ITALIAN
[2023-08-25] MEDS: FERRLECIT 110 MG IV (14:31)
[2023-08-25 15:00] VITALS: BP 107/57
[2023-08-26 01:29] LABS: IgA 129 mg/dl (70-400); IgG 320 mg/dl (700-1600)
[2023-08-26 03:01] LABS: IgM < 25 mg/dl (40-230)
== END 2023-08-25 16:31 | DRG 560 ==
LOC: 4 WEST ACU 13:06
PROVIDERS: Internal Medicine; Internal Medicine Hematology & Oncology; ADMITTING PHYSICIAN Family Medicine; CONSULT PHYSICIAN Internal Medicine; CONSULT PHYSICIAN Internal Medicine Cardiovascular Disease; CONSULT PHYSICIAN Internal Medicine Gastroenterology; CONSULT PHYSICIAN Internal Medicine Hematology & Oncology; CONSULT PHYSICIAN Physical Medicine & Rehabilitation; CONSULT PHYSICIAN Specialist; EMERGENCY PHYSICIAN Emergency Medicine; FAMILY PHYSICIAN Physician Assistant
PROC: 30233N1 Transfusion of Nonautologous Red Blood Cells into Peripheral Vein, Percutaneous Approach (ICD-10-PCS; 2023-08-16)
PROC: 0W3P8ZZ Control Bleeding in Gastrointestinal Tract, Via Natural or Artificial Opening Endoscopic (ICD-10-PCS; 2023-08-24)
PROC: 0DBA8ZX Excision of Jejunum, Via Natural or Artificial Opening Endoscopic, Diagnostic (ICD-10-PCS; 2023-08-24)
DX: M97.01XA Periprosthetic fracture around internal prosthetic right hip joint, initial encounter (principal); D62 Acute posthemorrhagic anemia; E87.1 Hypo-osmolality and hyponatremia; I13.0 Hypertensive heart and chronic kidney disease with heart failure and stage 1 through stage 4 chronic kidney disease, or unspecified chronic kidney disease; K92.1 Melena; I50.9 Heart failure, unspecified; E87.6 Hypokalemia; N18.30 Chronic kidney disease, stage 3 unspecified; K21.00 Gastro-esophageal reflux disease with esophagitis, without bleeding; K44.9 Diaphragmatic hernia without obstruction or gangrene; K31.89 Other diseases of stomach and duodenum; K63.89 Other specified diseases of intestine; D50.9 Iron deficiency anemia, unspecified
CPT/HCPCS: 88305; 73502; 73564; 80048; 80053; 82248; 82533; 82607; 82728; 82746; 82784; 83010; 83521; 83540; 83550; 83615; 83735; 83921; 84100; 84155; 84165; 84443; 84466; 85014; 85018; 85025; 85027; 85045; 85610; 85613; 85730; 86023; 86334; 86850; 86880; 86900; 86901; 86920; 88313; 93005; 93306; 93880; 93970; 96360; 97116; 97163; 97166; 97530; 97535; 99285; J2916; P9016

== ENCOUNTER → 2023-10-18 09:36 | Outpatient (REF) | payer MEDICARE, OTHER, SELFPAY ==
[2023-10-19 12:02] LABS: Blood Urea Nitrogen 33 mg/dl (7-17); Calcium 9.1 mg/dl (8.4-10.2); Carbon Dioxide 35 mmol/L (22-30); Chloride 91 mmol/L (98-107); Glucose 190 mg/dl (70-99); Sodium 138 mmol/L (135-145); eGFR > 60.00
[2023-10-19 12:23] LABS: NT-proBNP 939 pg/ml
== END ==
LOC: CLAB 09:36
PROVIDERS: ATTENDING PHYSICIAN Internal Medicine Cardiovascular Disease
DX: I50.9 Heart failure, unspecified (principal)
CPT/HCPCS: 36415; 80048; 83880

== ENCOUNTER 2023-12-01 11:02 | Inpatient (IN) | payer MEDICARE, OTHER, SELFPAY ==
[2023-12-01] VITALS (41 sets, daily range): BP systolic 88–116; BP diastolic 52–75; BMI 28.0; BMI 26.1
--- NOTE | 2023-12-01 04:51 | ED.GENMED ---
History of Present Illness
<LENORE Woodall - Last Filed: 12/01/23 05:10>
General
Chief Complaint: Cold/Flu/URI Symptoms
Source: patient
Time Seen by Provider: 12/01/23 04:40
Nursing documentation reviewed up to this point in time: agreed with
History of Present Illness
History of Present Illness:
Patient is a 73 year old female with a PMH of CHF HTN and pulmonary hypertension comes to the ED with complaints of a bout of confusion x 5 hours. Patient states she woke up around 1230a and 'did not feel like herself'. She lives with a home care
provider who called an ambulance. By the time of arrival at the ED she is awake alert and oriented. She described the confusion as feeling shaky and didn't really know what was going on. Something like this has never happened before. Patient also
presents with a productive cough. She states she had a URI and they gave her Mucinex which she has been taking for 1 week and seems it hasn't gotten rid of the cough. Patient denies any sob chest pain palpitations headache dizziness numbness
tingling.
Patient has a history of CHF PE HTN HLD GERD pulmonary hypertension and Lupus which are controlled on medication. Patient denies any alcohol or tobacco use.
Past History
<LENORE Woodall - Last Filed: 12/01/23 05:10>
Past History
ED Past Medical History: CHF, GERD, HTN, Hypercholesterolemia, Other (pulm htn) and Other (PE)
Social History
Tobacco: Non-smoker
Alcohol: None
Drug: None
Review of Systems
<LENORE Woodall - Last Filed: 12/01/23 05:10>
Review of Systems
Constitutional: Reports no symptoms
Respiratory: Reports cough
Cardiac: Reports no symptoms
ABD/GI: Reports no symptoms
Neurological: Reports other (confusion )
Phy Exam
<LENORE Woodall - Last Filed: 12/01/23 05:10>
General Physical Exam
General Presentation: well appearing
General age: appears stated age
General Habitus: elderly
General Mental: alert
Cardiovascular Exam
Cardiovascular Exam: regular rate/rhythm, no edema, no gallop, no JVD and no murmur
Pulmonary Exam
Pulmonary Exam: no respiratory distress, no rales, chest non tender, no crackles, no stridor and generalized wheezing
Cough: productive cough
Breath Sounds: Rhonchi: left upper and right upper
Neurological Exam
Neurological Exam: alert, oriented x3, no motor deficits, no sensory deficits and speech normal
Sensory
Sensory Exam: intact (sensastion intact to light touch on upper and lower extremities b/l)
Skin Exam
Skin Exam: other (mild pitting edema on lower extremities )
Scores
<Kenneth Nguyen DO - Last Filed: 12/01/23 07:06>
Heart Failure Risk
Heart Failure Risk Score: Yes
History of Stroke or TIA: No
History of intubation for respiratory distress: No
Heart rate on ED arrival >/= 110: No
SaO2 <90% on arrival on room air: Yes
HR >/=110 during 3min walk test (or too ill to perform test): Yes
ECG has acute ischemic changes: No
Urea >/=12mmol/L (BUN 33.6mg/dL): Yes
Serum CO2>/=35mmol/L: Yes
Troponin I or T elevated to MD Level (0.4mg/dL): No
NT-proBNP >/=5,000ng/L (5,000pg/ml): No
HF Risk Score: 6
Admission Status: VERY HIGH RISK 55.3% Consider admission to hospital
Course
<LENORE Woodall Last Filed: 12/01/23 05:10>
Orders/Labs/Results
Orders:
Orders
12/01/23 05:03
BNP [NT-proBNP] Urgent
Complete Blood Count/With Diff Urgent
Comprehensive Metabolic Panel Urgent
12/01/23 05:10
CR Chest - 2 Views Urgent
Comment:
Reason For Exam: cough
12/01/23 05:11
Urinalysis Reflex To Culture Urgent
Date Specimen was Collected: 12/01/23
Time Specimen was Collected: 06:54
12/01/23 05:58
Troponin I Urgent
12/01/23 06:48
Electrocardiogram (*1) Urgent
Reason for Study: Palpitations
EKG- Treatment ONCE
12/01/23 06:49
Furosemide [Lasix] 40 mg IV NOW STA
Abnormal Lab Results
12/01/23
05:03
RBC 2.23 L 10^6/uL
(4.20-5.40)
Hgb 8.5 L g/dL
(12.0-16.0)
Hct 24.1 L %
(37.0-47.0)
MCV 108.1 H fL
(81.0-99.0)
MCH 38.1 H pg
(27.0-31.0)
RDW 17.9 H %
(11.5-14.5)
Plt Count 54 L 10^3/uL
(130-400)
MPV 11.1 H fL
(7.4-10.4)
Abs Immat Gran (auto) 0.3 H 10^3/uL
(0-0.05)
Absolute Lymphs (auto) 0.3 L 10^3/uL
(1.2-3.4)
Immature Gran % 4.2 H %
(0-0.5)
Neutrophils % 83.2 H %
(42.2-75.2)
Lymphocytes % 4.2 L %
(20.5-51.1)
Sodium 128 L mmol/L
(135-145)
Chloride 79 L mmol/L
(98-107)
Carbon Dioxide 38 H mmol/L
(22-30)
BUN 36 H mg/dl
(7-17)
Glucose 114 H mg/dl
(70-99)
Total Bilirubin 1.7 H mg/dl
(0.2-1.3)
Total Protein 5.6 L g/dl
(6.3-8.2)
Albumin 3.4 L g/dl
(3.5-5.0)
12/01/23 05:03
12/01/23 05:03
Vital Signs
Initial and Last Documented VS:
Initial Vital Signs
BP
103/69
12/01/23 04:41
Last Documented Vital Signs
Temp Pulse Resp BP Pulse Ox
98.8 F 92 19 101/75 86
12/01/23 04:45 12/01/23 06:15 12/01/23 06:15 12/01/23 06:00 12/01/23 05:30
<Kenneth Nguyen, - Last Filed: 12/01/23 07:06>
Orders/Labs/Results
Orders:
Orders
12/01/23 05:03
BNP [NT-proBNP] Urgent
Complete Blood Count/With Diff Urgent
Comprehensive Metabolic Panel Urgent
12/01/23 05:10
CR Chest - 2 Views Urgent
Comment:
Reason For Exam: cough
12/01/23 05:11
Urinalysis Reflex To Culture Urgent
Date Specimen was Collected: 12/01/23
Time Specimen was Collected: 06:54
12/01/23 05:58
Troponin I Urgent
12/01/23 06:48
Electrocardiogram (*1) Urgent
Reason for Study: Palpitations
EKG- Treatment ONCE
12/01/23 06:49
Furosemide [Lasix] 40 mg IV NOW STA
Abnormal Lab Results
12/01/23
05:03
RBC 2.23 L 10^6/uL
(4.20-5.40)
Hgb 8.5 L g/dL
(12.0-16.0)
Hct 24.1 L %
(37.0-47.0)
MCV 108.1 H fL
(81.0-99.0)
MCH 38.1 H pg
(27.0-31.0)
RDW 17.9 H %
(11.5-14.5)
Plt Count 54 L 10^3/uL
(130-400)
MPV 11.1 H fL
(7.4-10.4)
Abs Immat Gran (auto) 0.3 H 10^3/uL
(0-0.05)
Absolute Lymphs (auto) 0.3 L 10^3/uL
(1.2-3.4)
Immature Gran % 4.2 H %
(0-0.5)
Neutrophils % 83.2 H %
(42.2-75.2)
Lymphocytes % 4.2 L %
(20.5-51.1)
Sodium 128 L mmol/L
(135-145)
Chloride 79 L mmol/L
(98-107)
Carbon Dioxide 38 H mmol/L
(22-30)
BUN 36 H mg/dl
(7-17)
Glucose 114 H mg/dl
(70-99)
Total Bilirubin 1.7 H mg/dl
(0.2-1.3)
Total Protein 5.6 L g/dl
(6.3-8.2)
Albumin 3.4 L g/dl
(3.5-5.0)
12/01/23 05:03
12/01/23 05:03
Vital Signs
Initial and Last Documented VS:
Initial Vital Signs
BP
103/69
12/01/23 04:41
Last Documented Vital Signs
Temp Pulse Resp BP Pulse Ox
98.8 F 92 19 101/75 86
12/01/23 04:45 12/01/23 06:15 12/01/23 06:15 12/01/23 06:00 12/01/23 05:30
<LENORE Woodall - Last Filed: 12/01/23 05:10>
MDM/Problems Addressed
Differential Diagnosis Includes:
CHF, confusion, uri
MDM/Problems Addressed:
order labs
<LENORE Woodall - Last Filed: 12/01/23 05:10>
*Critical Care Note
Total Time (30-74mins, 75-104mins- exclusive of procedures): Not Applicable
ED Attending Note
<LENORE Woodall - Last Filed: 12/01/23 05:10>
-
Portions of this chart may have been created with voice recognition software.� Occasional wrong word or��sound alike� substitutions may have occurred due to the inherent limitations of voice recognition software.
<Kenneth Nguyen DO - Last Filed: 12/01/23 07:06>
ED Attending Note
Patient seen and examined by attending physician: Yes
I performed the substantive portion of visit, reviewed & personally made and approve the management plan that is documented in note by myself or CIERRA.: Yes
ED Attending Note:
Pleasant 73-year-old female presents to the emergency department with confusion that has been present for the last 5 hours. Her in-home health career transition specialist called 911 who brought her into the hospital. She states that she has had difficulty breathing
and has history of pulmonary hypertension. Tonight she presented with a productive cough. Family physician has given diagnosed her with a URI and started her on Mucinex. She does not feel it is working. Patient states that she has been working
harder breathing.
Discharge Plan
Departure
Patient Disposition: Admit
Date of Disposition: 12/01/23
Time of Disposition: 07:06
Presentation/result/management discussed w/ accepting MD/DO: Hospitalist
Condition: Fair
Discharge Problem:
CHF exacerbation, Anemia of chronic disease, Acute confusion
Prescriptions:
No Action
cranberry extract [Ellura] 200 mg Capsule
200 mg PO DAILY
furosemide [Lasix] 40 mg tablet
60 mg PO DAILY
sildenafil (pulm.hypertension) 20 mg Tablet
20 mg PO TID
ascorbic acid (vitamin C) [Vitamin C] 500 mg tablet
500 mg PO NOON Qty: 30 0RF
ferrous sulfate [Iron (ferrous sulfate)] 325 mg (65 mg iron) Tablet
325 mg PO NOON Qty: 0 0RF
potassium chloride 20 mEq Tablet,Er Particles/Crystals
40 meq PO DAILY 30 Days Qty: 60 0RF
metoprolol succinate 25 mg Tablet Extended Release 24 Hr
12.5 mg PO BID 30 Days Qty: 30 0RF
atorvastatin 10 mg Tablet
10 mg PO HS 30 Days Qty: 30 0RF
cholecalciferol (vitamin D3) 50 mcg (2,000 unit) Tablet
50 mcg PO DAILY 30 Days Qty: 30 0RF
multivitamin with folic acid [Tab-A-Lorna] 400 mcg Tablet
1 tab PO DAILY 30 Days Qty: 30 0RF
Augmentin
850 mg PO BID 5 Days Qty: 10 0RF
Rx Instructions:
1 tablet bid x 5 days
cyanocobalamin (vitamin B-12) 1,000 mcg/mL Solution
1,000 mcg IM WE Qty: 0 0RF
prednisone 50 mg Tablet
70 mg PO DAILY Qty: 0 0RF
Referrals:
Nataliia Mobley PA-C [Family Provider] -
Interventions
Interventions:
*Risk Screen - Suicide Last Done: 12/01/23 04:45
*General Assessment Last Done: 12/01/23 04:45
*Neglect/Abuse Screening Last Done: 12/01/23 04:45
ED- Fall Risk Assessment Last Done: 12/01/23 04:53
ED- Pulmonary Assessment Last Done: 12/01/23 04:53
Discharge Date and Time
Print Language: KOREAN
[2023-12-01 05:21] LABS: % Basophils 0.3 % (0-2); % Immature Granulocytes 4.2 % (0-0.5); % Lymphocytes 4.2 % (20.5-51.1); % Monocytes 8.1 % (1.7-9.3); % Neutrophils 83.2 % (42.2-75.2); Absolute Immature Granulocytes 0.3 10^3/uL (0-0.05); Absolute Lymphocytes 0.3 10^3/uL (1.2-3.4); Absolute Monocytes 0.5 10^3/uL (0.1-0.6); Absolute Neutrophils 5.4 10^3/uL (1.4-6.5); Hematocrit 24.1 % (37.0-47.0); Hemoglobin 8.5 g/dL (12.0-16.0); Mean Corp Hgb Conc. 35.3 g/dL (33.0-37.0); Mean Corpuscular Hgb 38.1 pg (27.0-31.0); Mean Corpuscular Volume 108.1 fL (81.0-99.0); Mean Platelet Volume 11.1 fL (7.4-10.4); Nucleated Red Blood Cells % 0.5 %; Platelet Count 54 10^3/uL (130-400); Red Blood Cell Count 2.23 10^6/uL (4.20-5.40); Red Cell Dist. Width 17.9 % (11.5-14.5); White Blood Cell Count 6.4 10^3/uL (4.8-10.8)
[2023-12-01 05:38] LABS: ALT (SGPT) 23 U/L (0-35); AST (SGOT) 20 U/L (14-36); Albumin 3.4 g/dl (3.5-5.0); Alkaline Phosphatase 112 U/L (38-126); Blood Urea Nitrogen 36 mg/dl (7-17); Calcium 9.3 mg/dl (8.4-10.2); Carbon Dioxide 38 mmol/L (22-30); Chloride 79 mmol/L (98-107); Estimated Creatinine Clearance 54 ml/min; Glucose 114 mg/dl (70-99); Potassium 3.6 mmol/L (3.5-5.1); Sodium 128 mmol/L (135-145); Total Bilirubin 1.7 mg/dl (0.2-1.3); Total Protein 5.6 g/dl (6.3-8.2); eGFR > 60.00
[2023-12-01 05:47] LABS: NT-proBNP 2700 pg/ml
--- NOTE | 2023-12-01 07:05 | EDRN ---
Yvonne held d/t BP-94/66, Dr. Nguyen made aware.
[2023-12-01] MEDS: LASIX IV (07:30)
--- NOTE | 2023-12-01 07:46 | EDRN ---
Lab contacted in regards to ADD ON Trop ordered placed at 0717 by Calixto CHAVES, Lab reports that order is not visible. This RN reported that the order was visible on my end. Lab placed new order for trop
[2023-12-01 08:03] LABS: Troponin I 0.035 ng/ml
--- NOTE | 2023-12-01 10:53 | HPS.HSE ---
Addendum entered and electronically signed by Sid Dover MD 12/01/23 14:49:
Patient with history of complex autoimmune disease on high-dose steroids. Patient with episode of hypotension and symptoms she has history of chronic hypotension. Patient will need to be seen by speech as states difficulty with swallowing issues.
Will start Levophed until seen by cardiology for pressor support.
Original Note:
Family Physician
-
Family Physician: Nataliia Mobley
Chief Complaint
-
weakness
History of Present Illness
73-year-old female past medical history as below who is presenting from home with multiple complaints. Initially patient was complaining of weakness and confusion. Patient said confusion has resolved. States of weakness which has been ongoing for
the past few days. Also states of lower extremity edema. Denies orthopnea or PND. Does states of weight gain. Son at bedside stated patient gained approximately 8 to 10 pounds in the last few days. Patient was seen by outpatient cardiology and
Lasix was uptitrated. Patient also received IV Lasix in the office. Patient has chronic Savage catheter and denies decrease in urinary output. Denies any chest pain or shortness of breath with exertion. Also states of cough.. States of nasal
congestion. But no fevers or chills. Denies any headache neck pain lightheadedness dizziness.
Medical History
Past Medical History
Past Medical History: Reports Other
Additional Past Medical History:
Minimal-change kidney disease,
lupus/scleroderma overlap,
CHF,
hypertension,
hyperlipidemia,
pulmonary hypertension,
mitral regurgitation,
gastroesophageal reflux disease,
osteoarthritis
Anemia
Chronic thrombocytopenia
Past Surgical History: Reports Other
Additional Past Surgical History:
Bilateral total hip arthroplasty
Hysterectomy
Bladder surgery
Cataract surgery
Social History
Tobacco: Non-smoker
Alcohol: Occasional
Living: Alone
Employment: Employed
Family History
Family History: Not pertinent
Allergies / Home Medications
Allergies reflects when Allergies were last updated in [facility].
Home Medications with original date entered in [facility]
Allergy/Medication List:
Allergies
Allergy/AdvReac Type Severity Reaction Status Date / Time
No Known Allergies Allergy Verified 07/12/23 12:25
Home Medications
cranberry extract 200 mg capsule (Ellura) 200 mg PO DAILY Supplement 09/10/22
sildenafil (pulm.hypertension) 20 mg tablet 20 mg PO TID pulmonary hypertension 05/24/23
ferrous sulfate 325 mg (65 mg iron) tablet (Iron (ferrous sulfate)) 325 mg PO NOON Supplement #0 tabs 08/25/23
atorvastatin 10 mg tablet 10 mg PO HS High cholesterol 30 days #30 tabs 09/09/23
metoprolol succinate 25 mg tablet,extended release 24 hr 12.5 mg (1/2 x 25 mg) PO BID Blood pressure 30 days #30 tabs 09/09/23
multivitamin with folic acid 400 mcg tablet (Tab-A-Lorna) 1 tab PO DAILY Supplement 30 days #30 tabs 09/09/23
potassium chloride 20 mEq tablet,extended release(part/cryst) 40 meq (2 x 20 mEq) PO DAILY supplement-hypokalemia 30 days #60 tabs 09/09/23
azelastine 137 mcg (0.1 %) nasal spray 1 spray intranasal BID 12/01/23
collagenase clostridium histo. 250 unit/gram topical ointment (Santyl) 1 applic topical DAILY 12/01/23
cyanocobalamin (vitamin B-12) 1,000 mcg/mL injection solution 1,000 mcg IM MONTHLY Supplement 12/01/23
furosemide 40 mg tablet (Lasix) 80 mg PO BID 12/01/23
prednisone 50 mg tablet 50 mg PO DAILY Autoimmune disorder 12/01/23
Review of Systems
-
History Source: Patient
Constitutional: Reports Weight Gain and Fatigue
Respiratory: Reports Trouble Breathing
Abdomen/GI: Reports No Symptoms
: Reports No Symptoms
Musculoskeletal: Reports Edema
Skin: Reports No Symptoms
Neurological: Reports No Symptoms
Endocrine: Reports No Symptoms
Hematologic/Lymphatic: Reports No Symptoms
Psych: Reports No Symptoms
Physical Exam
Vital Signs
Vital Signs
Temp Pulse Resp BP Pulse Ox
97.9 F 89 16 94/56 99
12/01/23 09:32 12/01/23 10:00 12/01/23 10:00 12/01/23 10:00 12/01/23 10:13
Physical Exam
General: Well Developed, Well Nourished and No Apparent Distress
HEENT: NormoCephalic, Moist mucous membranes, Atraumatic and Oxygen
Respiratory: Crackles and Decreased Breath Sounds
Cardiac: S1/S2 and Regular Rhythm; No Murmur or Rub
GI: Soft, Non Tender, Non Distended and Normal Bowel Sounds; No Organomegaly
Rectal: Deferred by Provider
Musculoskeletal: No Clubbing, No Cyanosis, Edema, Left Lower Extremity (Bruising LE noted ) and Edema, Right Lower Extremity (Bruising LE noted )
Skin: No Rash
Neuro: Awake, Alert, Oriented, No Motor Deficits and Nonfocal/grossly intact
Psych: Calm
Laboratory Results
-
12/01/23 05:03
12/01/23 05:03
Laboratory Results
Total Bilirubin 1.7 mg/dl (0.2-1.3) H 12/01/23 05:03
AST 20 U/L (14-36) 12/01/23 05:03
ALT 23 U/L (0-35) 12/01/23 05:03
Alkaline Phosphatase 112 U/L (38-126) 12/01/23 05:03
Troponin I Cancelled 12/01/23 05:58
Impression/Plan
-
#Weakness/fatigue likely second acute on chronic HFpEF and pulmonary hypertension, and valvular disease
#Acute hypoxic respiratory insufficiency
#Elevated troponin
Start patient on 40 mg IV Lasix twice daily
With soft blood pressure may acquire inotropic support
Monitor creatinine closely with diuretics
Strict I's and O's. Daily weights.
Wean oxygen as tolerated
Echo 09/14 with EF of 58%. Normal ventricular size thickness and function. Mild mitral regurgitation. Mild to moderate aortic regurgitation. Moderate tricuspid regurgitation. PASP of 45-50 mmHg.
Cont Sildenafil. Seems to be off Ambrisentan
Trend troponin for now. proBNP of 2700 noted elevated compared to 10/15.
Chest x-ray noted.
Cardiology evaluation
# Toxic metabolic encephalopathy transient likely secondary to hypoxemia
-Doubt infection. Afebrile.
-Mentation back to baseline. Monitor mentation closely. If with repeat episode check CT head.
-Not on any opioids or benzodiazepines.
#Primary HTN
-BP controlled. Cont diuretics.
##Stage III chronic kidney disease
Cr stable. Monitor closely with diuretics
#Hyponatremia likely 2/2 hypervolemia
-monitor closely with diuresis
#hyperlipidemia
-Cont home regimen
#Minimal-change kidney disease,
#lupus/scleroderma overlap,
-on high dose prednisone continued. could cause water retention
#Chronic urinary retention with chronic Savage upon admission
Has had Savage since May 2023
#Iron deficiency anemia
Trend Hgb.
Continue with p.o. iron
Transfuse for hemoglobin less than 7
#Chronic thrombocytopenia
Continue to trend platelets. No active bleeding noted.
Transfuse as needed for platelets less than 20,000
DVT prophylaxis SCDs in the setting of chronic thrombocytopenia and high risk of bleeding.
Full code
Discussed with patient's son at bedside in detail.
I spent a total of 78 minutes with the patient or on the floor. More than 50% of this time involved counseling and coordination of care.
[2023-12-01 11:50] LABS: Urine Albumin Trace (Neg - Trace); Urine Bilirubin Negative (Negative); Urine Character Very Cloudy (Clear); Urine Color Yellow; Urine Glucose Negative (Negative); Urine Ketone Negative (Negative); Urine Leukocyte 2+ (Negative); Urine Nitrite Negative (Negative); Urine Occult Blood Negative (Negative); Urine Specific Gravity 1.015 (<1.030); Urine Urobilinogen Negative (Neg - 1+)
[2023-12-01] MEDS: ProAmatine 5 MG PO (11:58)
[2023-12-01 11:59] LABS: Urine Squamous Cell 21-25 /LPF (Few)
[2023-12-01] MEDS: LASIX 40 MG IV ×2 (11:59→17:22)
[2023-12-01 12:01] LABS: Urine Bacteria Many (Negative); Urine Red Blood Cell 0-2 /HPF (0-2); Urine White Cell 26-30 /HPF (0-5)
[2023-12-01 12:02] LABS: Urine Amorphous Seen
[2023-12-01] MEDS: FEOSOL PO (14:09)
[2023-12-01 14:52] LABS: Blood Urea Nitrogen 34 mg/dl (7-17); Calcium 8.9 mg/dl (8.4-10.2); Chloride 80 mmol/L (98-107); Estimated Creatinine Clearance 54 ml/min; Glucose 124 mg/dl (70-99); Potassium 2.9 mmol/L (3.5-5.1); Sodium 127 mmol/L (135-145); eGFR > 60.00
[2023-12-01] MEDS: LEVOPHED 250 IV (14:56)
[2023-12-01 15:02] LABS: Troponin I 0.021 ng/ml
[2023-12-01 15:14] LABS: Carbon Dioxide 38 mmol/L (22-30)
[2023-12-01] MEDS: REVATIO PO (16:29)
[2023-12-01] MEDS: KCL 270 MEQ IV (17:23)
--- NOTE | 2023-12-01 20:05 | PTCARENOTE ---
Patient arrived to IMU room 3352 with NEWSCAST DIRECTOR. Levo infusing at 2mcg/hr and Potassium rider infusing @67.5mL/hr. Oriented to room and use of call almaraz. ER nurse reported pt did better eating dinner, no choking; Pt still has weak cough present. CHG
bath and Savage care done. Tele monitor applied showing sinus rhythm HR 90-100s. 2 RN skin check: pea sized stage 2 to sacrum, fredy area with red blanchable skin.. Healing bruise to lower back, Right lateral foot/plantar area with callus. Pt reports
she had a fall at home a few weeks ago and has a small fracture to the back of her hip. Denies any pain at this time. Bed alarm set for safety. Call almaraz within reach.
[2023-12-01] MEDS: TYLENOL 650 MG PO (21:26)
[2023-12-01] MEDS: LIPITOR 10 MG PO (21:27)
[2023-12-01] MEDS: REVATIO 20 MG PO (21:27)
[2023-12-02] VITALS (20 sets, daily range): BP systolic 91–117; BP diastolic 54–73; BMI 26.0
[2023-12-02 05:20] LABS: Hematocrit 22.2 % (37.0-47.0); Hemoglobin 7.7 g/dL (12.0-16.0); Mean Corp Hgb Conc. 34.7 g/dL (33.0-37.0); Mean Corpuscular Hgb 37.7 pg (27.0-31.0); Mean Corpuscular Volume 108.8 fL (81.0-99.0); Mean Platelet Volume 10.9 fL (7.4-10.4); Platelet Count 41 10^3/uL (130-400); Red Blood Cell Count 2.04 10^6/uL (4.20-5.40); Red Cell Dist. Width 18.1 % (11.5-14.5); White Blood Cell Count 5.5 10^3/uL (4.8-10.8)
[2023-12-02 05:26] LABS: Blood Urea Nitrogen 30 mg/dl (7-17); Calcium 8.7 mg/dl (8.4-10.2); Carbon Dioxide 38 mmol/L (22-30); Chloride 84 mmol/L (98-107); Estimated Creatinine Clearance 53 ml/min; Glucose 107 mg/dl (70-99); Magnesium 1.9 mg/dl (1.6-2.3); Potassium 3.3 mmol/L (3.5-5.1); Sodium 130 mmol/L (135-145); eGFR > 60.00
[2023-12-02 06:26] LABS: % Basophils 0.4 % (0-2); % Eosinophils 0.2 % (0-6); % Immature Granulocytes 4.6 % (0-0.5); % Lymphocytes 2.6 % (20.5-51.1); % Monocytes 4.6 % (1.7-9.3); % Neutrophils 87.6 % (42.2-75.2); Absolute Immature Granulocytes 0.3 10^3/uL (0-0.05); Absolute Lymphocytes 0.1 10^3/uL (1.2-3.4); Absolute Monocytes 0.3 10^3/uL (0.1-0.6); Absolute Neutrophils 4.8 10^3/uL (1.4-6.5); Nucleated Red Blood Cells % 0.6 %
--- NOTE | 2023-12-02 07:52 | CON.CAR ---
Addendum entered and electronically signed by Faisal Rubio MD 12/02/23 09:32:
I saw and examined the patient.
The Ict Support Technicians's note was reviewed and I agree with the note.
Comment:
GEN: No distress, awake, Ox3
HEENT: supple, anicteric, mmm
LUNGS: CTA, no wheezes/rales
CV: Reg, S1/S2, 1/6 syst LSB, S3+
ABD: soft, BS+, NT/ND
EXT: +1 edema
NEURO: Gross non-focal
SKIN: No rash
Plan:
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
minimal-change disease, hypertension and history of bilateral PE status post IVC filter in 2007. She presents with fatigue, weight gain, and shortness of breath. She also was somewhat confused. She lives independently with a deicer element winder machine. She was
found to have an elevated proBNP with an unremarkable chest x-ray. Her blood pressure was on the low side. She was then placed on Levophed. This was ultimately weaned off.
Would start with gentle IV Lasix 40 mg IV twice daily. Will check echocardiogram to try to evaluate PA pressures. If she continues to feel poorly we would consider a right heart catheterization, although she has marked anemia and thrombocytopenia.
EKG reveals sinus tachycardia. Would recommend pulmonary evaluation and consideration for CT scan to rule out pulmonary embolism.
Continue revatio.
Remains on high-dose prednisone.
Original Note:
Consultation
Consultation Request
Date/Time Consultation Performed: 12/02/23
Requesting Provider: Dr. Dover
Performing Provider: Lara Morton PA-C for Dr. Rubio
Reason for Consultation: hypotension
Medical History
-
Chief Complaint: confusion
History of Present Illness:
Patient is a 73-year-old female with past medical history of severe pulmonary hypertension, who Group 1 associated with crest syndrome on chronic revatio. She underwent right heart cath 03/2023 which revealed severe pulmonary hypertension,
predominantly precapillary with mean PA pressure 50 mmHg, and was started on revatio as a result of this. She had been on Ambrisentan which was stopped due to concern for anemia/thrombocytopenia. She CKD stage IIIa and is on chronic steroid
therapy for minimal-change disease of the kidneys. She is history of chronic heart failure with improved ejection fraction and prior nonischemic cardiomyopathy with recovery in EF. She has remote history of PE in 2007 status post IVC filter.
She presents to [facility] she was seen in the office 11/25/2023 and felt to be in acute heart failure. She was given dose of IV Lasix 120 mg daily and oral Zaroxolyn in office. Her weights did trend down with this. On 11/30 she was advised
to take extra 40 mg of p.o. Lasix for 2 days as proBNP remained elevated at 2000. She states she did not do this as then she ended up in the hospital. She came for evaluation of confusion. states she had been having bad dreams which made her
confused. She lives independently with a deicer element winder machine. She does report some worsening dyspnea on exertion and some lower extremity edema. She reports a dry weight of 141 to 142 pounds. Typically takes p.o. Lasix 80 mg twice daily. On arrival was
noted to be hypotensive, which patient reports is chronic, and was started on Levophed, subsequently weaned off. proBNP 2700. CXR without acute process. Cardiology consulted for evaluation. Reports confusion seems to be better
PMH:
Pulmonary hypertension, WHO Group 1 associated with crest, on revatio
Scleroderma with lupus overlap, diagnosed 04/2023
Chronic heart failure with improved EF
Recovered nonischemic cardiomyopathy
CKD stage 3A
Minimal change disease
hypertension
hyperlipidemia
GERD
osteoarthritis
history of bilateral PE status post IVC filter in 2007
Chronic anemia/thrombocytopenia
Past Medical History
Past Medical History: HTN and Hypercholesterolemia
Social History
Tobacco: Non-Smoker
Alcohol: None
Living: Alone (with caregiver)
Family History
Family History: Reviewed & Not Pertinent
Allergies / Home Medications
Allergy/AdvReac Type Severity Reaction Status Date / Time
No Known Allergies Allergy Verified 07/12/23 12:25
�Medication �Instructions �Recorded �Confirmed �Type
cranberry extract 200 mg capsule 200 mg PO DAILY Supplement 09/10/22 12/01/23 History
(Ellura)
sildenafil (pulm.hypertension) 20 20 mg PO TID pulmonary hypertension 05/24/23 12/01/23 History
mg tablet
ferrous sulfate 325 mg (65 mg 325 mg PO NOON Supplement #0 tabs 08/25/23 12/01/23 Rx
iron) tablet (Iron (ferrous
sulfate))
atorvastatin 10 mg tablet 10 mg PO HS High cholesterol 30 09/09/23 12/01/23 Rx
days #30 tabs
metoprolol succinate 25 mg 12.5 mg (1/2 x 25 mg) PO BID Blood 09/09/23 12/01/23 Rx
tablet,extended release 24 hr pressure 30 days #30 tabs
multivitamin with folic acid 400 1 tab PO DAILY Supplement 30 days 09/09/23 12/01/23 Rx
mcg tablet (Tab-A-Lorna) #30 tabs
potassium chloride 20 mEq 40 meq (2 x 20 mEq) PO DAILY 09/09/23 12/01/23 Rx
tablet,extended release(part/cryst) supplement-hypokalemia 30 days #60
tabs
azelastine 137 mcg (0.1 %) nasal 1 spray intranasal BID 12/01/23 12/01/23 History
spray
collagenase clostridium histo. 250 1 applic topical DAILY 12/01/23 12/01/23 History
unit/gram topical ointment (Santyl)
cyanocobalamin (vitamin B-12) 1,000 mcg IM MONTHLY Supplement 12/01/23 12/01/23 History
1,000 mcg/mL injection solution
furosemide 40 mg tablet (Lasix) 80 mg PO BID 12/01/23 12/01/23 History
prednisone 50 mg tablet 50 mg PO DAILY Autoimmune disorder 12/01/23 12/01/23 History
Review of Systems
-
History Source: Patient
All other systems: Negative unless noted
Physical Exam
Vital Signs
Temp Pulse Resp BP Pulse Ox
97.7 F 89 15 107/66 98
12/02/23 04:21 12/02/23 06:00 12/02/23 06:00 12/02/23 06:00 12/02/23 06:00
Lab Results
12/02/23 04:29
12/02/23 04:29
Troponin I 0.021 ng/ml 12/01/23 14:02
Zon-C-Zhusbfcaopc Pept 2700 pg/ml 12/01/23 05:03
Physical Exam
General: No Apparent Distress, Comfortable and Other (on supp O2)
HEENT: Normocephalic, Anicteric and Moist Mucous Membranes
Respiratory: Rhonchi (scattered) and Non Labored Respirations
Cardiac: S1/S2, Regular Rhythm and Other (tachycardic)
Musculoskeletal: No Clubbing, No Cyanosis and Edema (1+ of B/L LE)
Skin: Warm and Dry
Neuro: AO x 3
Impression / Plan
-
Primary Scientific Affairs Manager: Dr. Diann Bledsoe
Assessment:
Presentation with confusion, weakness
Hypotension, chronic
Hypokalemia
Hyponatremia
Acute hypoxic respiratory insufficiency
Elevated troponin, suspected nonischemic myocardial injury
Pulmonary hypertension, WHO Group 1 associated with crest, on revatio
Scleroderma with lupus overlap, diagnosed 04/2023
Chronic heart failure with improved EF
Recovered nonischemic cardiomyopathy
CKD stage 3A
Minimal change disease, on prednisone
hypertension
hyperlipidemia
GERD
osteoarthritis
history of bilateral PE status post IVC filter in 2007
Chronic iron deficiency anemia/thrombocytopenia
RHC 03/2023: Severe pulmonary hypertension with minimally elevated L sided filling pressures and no significant step up on shunt run, CI 2.3, SVR 1492
Echo 08/23/2023: EF 50%, mild MR, mild to moderate AR, moderate TR, PAP 45 to 50 mmHg
Plan:
-Patient presents with confusion and weakness. She was recently diuresed in outpatient setting. symptoms likely multifactorial
-proBNP remains elevated, however CXR read as without acute process and also presented with acute on chronic hypotension. She was ordered IV Lasix 40 mg twice daily on admission and was placed on Levophed. This has subsequently been weaned off and
pressures stable
-Continue gentle diuresis. Dry weight per patient 141-142 pounds. As outpatient she is on 80 mg p.o. Lasix twice daily. Wean supplemental oxygen as able
-Replete K. Follow sodium
-Repeat echo, last from 08/2023 as above
-May consider for right heart cath pending results of echo/clinical progress
-Workup for possible underlying infectious process per primary service
-Sinus tachycardia on review of telemetry. OP toprol presently on hold, consider resuming as BPs improving. She is not chronically on anticoagulation with history of PE status post IVC filter in 2007.
-continue revatio
-hgb 7.7/plts 41K. trend. consider transfusion if continues to drop
-Troponin 0.035 on arrival and trending down. No chest pain. Suspected nonischemic myocardial injury
-PT/OT evals
Data Reviewed
-
EKG: Tracing Personally Visualized and interpreted
Radiology: Report Reviewed by me
Medical Tests (Nuc Med, Echo etc): Report Reviewed by me
Labs: Labs Reviewed by me
Old Records: Reviewed
--- NOTE | 2023-12-02 09:03 | PTOTSP ---
Dysphagia Evaluation
Patient presents with signs concerning for at least mild oral/pharyngeal dysphagia, possible aspiration (coughing w/ dry solids, consecutive sips of liquids by straw), and has risk factors for esophageal dysphagia (scleroderma, GERD). Chest x-ray
12/01/2023 without signs of PNA.
Recommend:
1. IDDSI Level 6 Soft/Bite Sized, Thin liquids
2. Medications in puree
3. Full supervision, assist as needed
4. Small SINGLE sips/bites, alternate sips/bites, reflux precautions
5. Consider GI consult
6. Consider video swallow study if signs of dysphagia persist despite modifications below
--- NOTE | 2023-12-02 09:08 | PTCARENOTE ---
Pt's levo off since 0700. BP stable with MAP 73.
[2023-12-02] MEDS: KCL 40 MEQ PO (09:24)
[2023-12-02] MEDS: DELTASONE 50 MG PO (09:25)
[2023-12-02] MEDS: LASIX 40 MG IV ×2 (09:25→16:35)
[2023-12-02] MEDS: TYLENOL 650 MG PO (09:25)
[2023-12-02] MEDS: THERAGRAN 1 TABLET PO (09:25)
[2023-12-02] MEDS: REVATIO 20 MG PO ×3 (09:25→20:39)
[2023-12-02] MEDS: TOPROL XL 12.5 MG PO ×2 (10:04→20:38)
[2023-12-02] MEDS: FEOSOL 325 MG PO (13:10)
[2023-12-02] MEDS: ProAmatine 5 MG PO ×2 (13:31→17:41)
[2023-12-02 13:56] LABS: Iron 39 ug/dl (37-170)
--- NOTE | 2023-12-02 14:05 | W.PN.HOSP.TC ---
Today's Communication/Plan
-
check anemia panel
IV lasix
toprol
monitor bp
Pulm eval
Assessment / Plan
Assessment / Plan
General: Well Developed, Well Nourished and No Apparent Distress
HEENT: NormoCephalic, Moist mucous membranes, Atraumatic and Oxygen
Respiratory: Crackles and Decreased Breath Sounds
Cardiac: S1/S2 and Regular Rhythm; No Murmur or Rub
GI: Soft, Non Tender, Non Distended and Normal Bowel Sounds; No Organomegaly
Rectal: Deferred by Provider
Musculoskeletal: No Clubbing, No Cyanosis, Edema, Left Lower Extremity (Bruising LE noted ) and Edema, Right Lower Extremity (Bruising LE noted )
Skin: No Rash
Neuro: Awake, Alert, Oriented, No Motor Deficits and Nonfocal/grossly intact
Psych: Calm
#Weakness/fatigue likely second acute on chronic HFpEF and pulmonary hypertension, and valvular disease
#Acute hypoxic respiratory insufficiency
#Elevated troponin suspect nonischemic myocardial injury
#Shock likely cardiogenic doubt septic
Start patient on 40 mg IV Lasix twice daily
With soft blood pressure required levophed support
Monitor creatinine closely with diuretics
Strict I's and O's. Daily weights.
Wean oxygen as tolerated
Echo 09/14 with EF of 58%. Normal ventricular size thickness and function. Mild mitral regurgitation. Mild to moderate aortic regurgitation. Moderate tricuspid regurgitation. PASP of 45-50 mmHg.
Repeat ECHO pending.
Cont Sildenafil. Seems to be off Ambrisentan
Trend troponin for now. proBNP of 2700 noted elevated compared to 10/15.
Chest x-ray noted.
Agree with cardiology. Need right heart catheterization.
Cardiology correspondence noted. Pulmonary eval requested
# Toxic metabolic encephalopathy transient likely secondary to hypoxemia vs. hypotension
-Doubt infection. Afebrile.
-Monitor mentation closely. If with repeat episode check CT head.
-Not on any opioids or benzodiazepines.
# Sinus tachycardia
-Toprol dose adjusted. Monitor for blood pressure.
#Hyponatremia likely 2/2 hypervolemia
-monitor closely with diuresis. Na improving.
#Hypokalemia
-replete/monitor
#R hip pain due to chronic right periprosthetic femur fracture
-Was admitted in 09/14 and ortho recs non operative management.
-was seen by Ortho in office and recs conservative management.
-Hip xray if wtih severe pain once more hemodynamically stable
-pain control. Ice pack
#Primary HTN
-BP controlled. Cont diuretics.
##Stage III chronic kidney disease
Cr stable. Monitor closely with diuretics
#hyperlipidemia
-Cont home regimen
#Minimal-change kidney disease,
#lupus/scleroderma overlap,
-on high dose prednisone continued. could cause water retention
#Chronic urinary retention with chronic Savage upon admission
Has had Savage since May 2023
#Iron and B12 deficiency anemia
Trend Hgb.
Continue with p.o. iron
Due for Vitamin b12 injection-will provide here.
Transfuse for hemoglobin less than 7
#Chronic thrombocytopenia
Continue to trend platelets. No active bleeding noted.
Transfuse as needed for platelets less than 20,000
# History of bilateral pulmonary embolism status post IVC filter placement
DVT prophylaxis SCDs in the setting of chronic thrombocytopenia and high risk of bleeding.
Full code
Discussed with patient's son and daughter.
Anticipated Discharge: > 48 hours
Subjective/Interval History
-
Date of Service: December 02, 2023
remains on oxygen this morning
states of R hip pain
intermittent confusion per family
Objective Data
-
Labs:
Laboratory Results
12/02/23
04:29
WBC 5.5
Hgb 7.7 L
Hct 22.2 L
Plt Count 41 L D
Sodium 130 L
Potassium 3.3 L
Chloride 84 L
Carbon Dioxide 38 H
BUN 30 H
Creatinine 0.8
Glucose 107 H
Calcium 8.7
Vital Signs:
Vital Signs
Temp Pulse Resp BP Pulse Ox
98.5 F 113 23 96/60 96
12/02/23 11:32 12/02/23 13:31 12/02/23 09:00 12/02/23 13:31 12/02/23 09:56
I&O
12/01/23 12/02/23 12/03/23
06:59 06:59 06:59
Output Total 725 / 725
Balance -725 / -725
Data Reviewed
-
Total Time Spent with Patient (in minutes): 58
[2023-12-02 14:06] LABS: Percent Saturation 17 % (20-50); Total Iron Binding Capacity 220 ug/dl (265-497)
[2023-12-02 15:14] LABS: Folate > 20.0 ng/ml (2.76-20); Vitamin B12 > 1000 pg/ml (239-931)
--- NOTE | 2023-12-02 15:50 | PTCARENOTE ---
Pt became anxious once daughter arrived but is calmer now. frequent stools. on RA with improved O2 sat. BP high 90s but stable with MAP 70s.
--- NOTE | 2023-12-02 16:26 | CM ---
Initial assessment completed with daughter, Debra Nash # [phone], via phone
Pharmacy verified: [facility] @ [address], [place]
Daughter reported that patient lives alone in a single home; 1st floor set up In-law suite. Home has a Ramp to access via the front door; 1 step down to the family room and in-law suite. Bathroom has shower stall w/grab bar and shower chair; commode
over the toilet
PLOF: daughter reported that mother needs assistance with personal care; ambulates with a RW. She has can filler HEALTH PROMOTION COORDINATOR during the day and an assistant guest services manager
Daughter fills pill box; aids give the pill box to patient and she self-administers medications
PT/OT assessments pending; if SNF is recommended, family is agreeable
If patient is able to DC to Home, family will transport
Discharge plan to be determined pending hospital course; CM will continue to follow and coordinate services as needed
[2023-12-02] MEDS: CYANOCOBALAMIN 1000 MCG IM (16:35)
--- NOTE | 2023-12-02 17:16 | PTCARENOTE ---
Brendener in law wanted to inform RN that her , Juan is POA. They have concerns that pt's daughter Debra is unable to manage pt's medications properly resulting in pt missing several lasix doses prior to this admission. They are also concerned
that pt is not safe at home given frequent falls and weakness. RN updated OMAIRA Raymundo and Dr. Dover via TT.
[2023-12-02] MEDS: LIPITOR 10 MG PO (20:39)
--- NOTE | 2023-12-02 21:11 | PTCARENOTE ---
Assumed care for patient overnight, received report via dayshift RN. Pt is AAOx3 forgetful at times. Normal sinus on tele. Pt had a drop in O2 on RA, pulse ox reading mid 70's. Placed on 3L NC and she went back up to 97%. Trialed RA and pt down to
87%. Placed her on 2L humidified NC she's back up to 98%. Able to take PO medications whole in applesauce. Given a CHG bath, patel care, and oral care. Pt turned and repositioned. Pt appears to be resting comfortably in bed, call almaraz in reach.
[2023-12-03] VITALS (17 sets, daily range): BP systolic 88–111; BP diastolic 56–67; PULSE 112–145; O2SAT 100; BMI 25.9
[2023-12-03 05:30] LABS: Blood Urea Nitrogen 27 mg/dl (7-17); Calcium 8.7 mg/dl (8.4-10.2); Carbon Dioxide 39 mmol/L (22-30); Chloride 85 mmol/L (98-107); Estimated Creatinine Clearance 61 ml/min; Glucose 104 mg/dl (70-99); Magnesium 1.9 mg/dl (1.6-2.3); Sodium 131 mmol/L (135-145); eGFR > 60.00
[2023-12-03] MEDS: DELTASONE 50 MG PO (08:54)
[2023-12-03] MEDS: KCL 40 MEQ PO (08:54)
[2023-12-03] MEDS: THERAGRAN 1 TABLET PO (08:54)
[2023-12-03] MEDS: REVATIO 20 MG PO ×3 (08:54→21:38)
[2023-12-03] MEDS: ProAmatine 5 MG PO ×3 (08:54→16:15)
[2023-12-03] MEDS: LASIX 40 MG IV ×2 (08:55→16:15)
[2023-12-03] MEDS: TOPROL XL 12.5 MG PO ×2 (08:55→20:45)
--- NOTE | 2023-12-03 10:22 | CON.PUL ---
Consultation
Consultation Request
Date/Time Consultation Requested: 12/03/2023-8 AM
Date/Time Consultation Performed: 12/03/2023-8:30 AM
Requesting Provider: Hospitalist
Performing Provider: Dr. Person
Reason for Consultation: Shortness of breath
Medical History
-
Chief Complaint: Pulmonary hypertension
History of Present Illness:
73-year-old female with a history of autoimmune disease that is complex including crest and lupus currently not on immunosuppressive medications as well as pulmonary hypertension previously followed by Dr. Candelaria Rendon-not seen in over a year-who
presented with weakness and confusion-pulmonary consulted for pulmonary hypertension 12/03/2023. The patient denies any shortness of breath at rest or progressive dyspnea on exertion. She denies any chest pain, chest tightness, pleurisy, chest
congestion, productive cough, postnasal drip, reflux, abdominal pain or increased lower extremity swelling.
Past Medical History
Past Medical History: None (Hypertension. Hyperlipidemia. CHF preserved EF. Crest/lupus/scleroderma overlap. Pulm hypertension. PE 2006. Mitral regurgitation. GERD. Osteoarthritis. Thrombocytopenia. Glaucoma. Shingles.)
Past Surgical History: None (Bilateral: Hip arthroplasty. Hysterectomy. Bladder surgery. Cataract surgery.)
Social History
Tobacco: Non-smoker
Alcohol: None
Drug: None
Living: With Family
Occupational Exposures: No known asbestos exposure
Environmental Exposures: No known tuberculosis exposure
Family History
Family History: Other (Father-CAD. Mother-hypertension, glaucoma and ovarian cancer.)
Allergies / Home Medications
Allergies
Allergy/AdvReac Type Severity Reaction Status Date / Time
No Known Allergies Allergy Verified 07/12/23 12:25
Home Medications
�Medication �Instructions �Recorded �Confirmed �Last Taken �Type
cranberry extract 200 mg capsule 200 mg PO DAILY Supplement 09/10/22 12/01/23 08/13/23 History
(Ellura)
sildenafil (pulm.hypertension) 20 20 mg PO TID pulmonary hypertension 05/24/23 12/01/23 08/13/23 History
mg tablet
ferrous sulfate 325 mg (65 mg 325 mg PO NOON Supplement #0 tabs 08/25/23 12/01/23 08/13/23 Rx
iron) tablet (Iron (ferrous
sulfate))
atorvastatin 10 mg tablet 10 mg PO HS High cholesterol 30 09/09/23 12/01/23 Unknown Rx
days #30 tabs
metoprolol succinate 25 mg 12.5 mg (1/2 x 25 mg) PO BID Blood 09/09/23 12/01/23 Unknown Rx
tablet,extended release 24 hr pressure 30 days #30 tabs
multivitamin with folic acid 400 1 tab PO DAILY Supplement 30 days 09/09/23 12/01/23 Unknown Rx
mcg tablet (Tab-A-Lorna) #30 tabs
potassium chloride 20 mEq 40 meq (2 x 20 mEq) PO DAILY 09/09/23 12/01/23 Unknown Rx
tablet,extended release(part/cryst) supplement-hypokalemia 30 days #60
tabs
azelastine 137 mcg (0.1 %) nasal 1 spray intranasal BID Allergies 12/01/23 12/01/23 Unknown History
spray
collagenase clostridium histo. 250 1 applic topical DAILY Skin Issues 12/01/23 12/01/23 Unknown History
unit/gram topical ointment (Santyl)
cyanocobalamin (vitamin B-12) 1,000 mcg IM MONTHLY Supplement 12/01/23 12/01/23 Unknown History
1,000 mcg/mL injection solution
furosemide 40 mg tablet (Lasix) 80 mg PO BID Fluid 12/01/23 12/01/23 Unknown History
Retention/Swelling
prednisone 50 mg tablet 50 mg PO DAILY Autoimmune disorder 12/01/23 12/01/23 Unknown History
Review of Systems
-
Unable to Obtain full review of systems at this time due to: Other (Per HPI)
Vitals / Labs / Diagnostic Testing
Vital Signs
Temp Pulse Resp BP Pulse Ox
97.9 F 78 15 111/57 100
12/03/23 07:06 12/03/23 06:00 12/03/23 06:00 12/03/23 06:00 12/03/23 06:00
Lab Data
12/03/23 04:42
Microbiology
12/01/23 11:37 Urine Urine Culture - Preliminary
Diagnostic Testing:
Physical Exam
-
Exam:
Well-nourished and well-developed in no apparent distress
HEENT-atraumatic, normocephalic
Neck-supple, no JVD, no bruit
Heart-regular rate and rhythm-mild systolic murmur, no increased P2 or RV heave
Chest with diminished breath sounds, rare crackles and no wheezes
Back without tenderness
Abdomen-soft, nontender, nondistended, no hepatosplenomegaly
Extremities-no cyanosis, clubbing, trace bilateral pedal edema
Integument-intact, no rashes, lesions or ecchymosis
Neurology-alert and oriented, nonfocal motor and sensory exam
Assessment
-
73-year-old female with a history of autoimmune disease that is complex including crest and lupus currently not on immunosuppressive medications as well as pulmonary hypertension previously followed by Dr. Candelaria Rendon-not seen in over a year-who
presented with weakness and confusion-pulmonary consulted for pulmonary hypertension 12/03/2023.
Chronic CHF-preserved EF
Elevated troponin
TME
Ybkrwk-yhqjtsbjss-IQU 108.8
Thrombocytopenia-platelet count 41
Hyponatremia-serum sodium 130
Mild hyperglycemia
Conditions present prior to admission:
Hypertension.
Hyperlipidemia.
CHF preserved EF.
Crest/lupus/scleroderma overlap.
Pulm hypertension.
PE 2006.
Mitral regurgitation.
GERD.
Osteoarthritis.
Thrombocytopenia.
Glaucoma.
Shingles.
Bilateral: Hip arthroplasty. Hysterectomy. Bladder surgery. Cataract surgery.
Plan
Mild respiratory decompensation unlikely laded to underlying pulmonary disease
Supplemental oxygen as needed
Incentive spirometry
Aspiration precautions
Nebulizers if needed-currently not bronchospastic
Prednisone 50 mg initiated by primary team-no need from a pulmonary perspective
Cardiology following-correspondence reviewed
Trend troponin
Gentle diuresis
Monitor renal function, electrolytes, intake/output, lower extremity edema and weight
Replace electrolytes as needed
Repeat echocardiogram pending
Consideration towards right heart catheterization per cardiology
Last echocardiogram August 2023 pulmonary pressures have actually improved compared to July 2022-summarized below
Continues with sildenafil-off Ambisentan
Follow hemoglobin
Transfuse as needed
Check B12 and folate if not already done
Follow thrombocytopenia
Replace electrolytes
Monitor blood sugar
Insulin supplementation as needed
DVT prophylaxis-mechanical with anemia and thrombocytopenia
Nutrition
Early mobilization
Patient last saw Dr. Candelaria Rendon 09/07/2022 and canceled late for an appointment 08/19/2023-will ask to return for full PFTs, etc.
Diagnostic data:
CXR 03/11/22: Mild pulmonary edema.CXR 02/19/2022: Cardiomegaly.� Pulmonary vascularity is at least top normal.� Cannot exclude mild CHF.� Suspected approximate 0.8 cm nodule in the right upper lobe.� CT chest suggested unable to obtain.
Chest x-ray 09/06/2023-clear lungs, no change
Chest x-ray 12/01/2023-NAD
CT Chest 06/02/22: 3 mm nodule in the lateral segment of the right middle lobe.� Follow-up in 1 year may be considered patient is at high risk.� Mild regions of subpleural linear and reticular interstitial thickening noted in the peripheral upper
lobes, right greater than left.� Nonspecific.� Possibly reflecting mild obliterative or infective bronchiolitis, interstitial scarring, or mild/early fibrotic changes.� Moderate hiatal hernia.� Reflux suggested.� Probable localized fibroglandular
asymmetry along the posterior lateral aspect of the right breast, recommend correlation with mammogram.���������U
BLE 03/11/22: No DVT
VQ Scan 03/11/22: Very low probability of PE.
ECHO 08/04/22: 1. Mild left ventricular hypertrophy with septal flattening consistent with RV pressure/volume overload, EF 50%� 2. Thickened mitral leaflets, mitral annular calcification, mild to moderate mitral regurgitation and mildly dilated left
atrium 3. Aortic sclerosis with mild aortic regurgitation 4. Dilated and hypokinetic right ventricle with right ventricular hypertrophy, dilated right atrium, moderate to severe tricuspid regurgitation and severe pulmonary hypertension, 79-84 mmHg
systolic. Mildly dilated pulmonary artery with mild to moderate pulmonary regurgitation
Echocardiogram 08/23/2023-EF 50%, mild mitral regurgitation, PA systolic 81-24-[id number] pulmonary pressures July 2022 PA systolic 79-84
PFTs 09/07/22: FEV1 1.08L 51%, FVC 1.74L 62%, ratio 62.� Post FEV1 1.16L 54%.� No significant bronchodilator response.� TLC 3.95L 84%, DLCO 41%��������
PFT 03/12/2022: FVC 1.71/57%, FEV1 1.23/54%, ratio 72%, significant BD response in small airways, TLC 4.43/90%,RV 2.72/132%, DLCO 9.35/44%, DLCO/VA 2.65/61%..
Data Reviewed
-
PFT: Report reviewed by me
EKG: Report reviewed by me
Radiology: Image personally visualized and interpreted and Report reviewed by me
CT Scan: Image personally visualized and interpreted and Report reviewed by me
Ultrasound: Report reviewed by me
Medical Tests (Nuc Med, Echo etc): Report reviewed by me
Labs: Labs reviewed by me
Old Records: Reviewed
Total Time Spent with Patient (in minutes): 65
[2023-12-03 11:06] LABS: % Basophils 0.3 % (0-2); % Eosinophils 0.1 % (0-6); % Immature Granulocytes 2.5 % (0-0.5); % Lymphocytes 2.6 % (20.5-51.1); % Monocytes 3.7 % (1.7-9.3); % Neutrophils 90.8 % (42.2-75.2); Absolute Immature Granulocytes 0.2 10^3/uL (0-0.05); Absolute Lymphocytes 0.2 10^3/uL (1.2-3.4); Absolute Monocytes 0.3 10^3/uL (0.1-0.6); Absolute Neutrophils 7.2 10^3/uL (1.4-6.5); Hematocrit 22.5 % (37.0-47.0); Hemoglobin 7.8 g/dL (12.0-16.0); Mean Corp Hgb Conc. 34.7 g/dL (33.0-37.0); Mean Corpuscular Hgb 39.8 pg (27.0-31.0); Mean Corpuscular Volume 114.8 fL (81.0-99.0); Mean Platelet Volume 11.7 fL (7.4-10.4); Nucleated Red Blood Cells % 0.3 %; Platelet Count 61 10^3/uL (130-400); Red Blood Cell Count 1.96 10^6/uL (4.20-5.40); Red Cell Dist. Width 17.8 % (11.5-14.5); White Blood Cell Count 7.9 10^3/uL (4.8-10.8)
--- NOTE | 2023-12-03 11:35 | W.PN.HOSP.TC ---
Today's Communication/Plan
-
IV lasix
mild wt loss
trend cr
oob/pt
Assessment / Plan
Assessment / Plan
General: Well Developed, Well Nourished and No Apparent Distress
HEENT: NormoCephalic, Moist mucous membranes, Atraumatic and Oxygen
Respiratory: Crackles and Decreased Breath Sounds
Cardiac: S1/S2 and Regular Rhythm; tachycardiac
GI: Soft, Non Tender, Non Distended and Normal Bowel Sounds; No Organomegaly
Musculoskeletal: No Clubbing, No Cyanosis, Edema, Left Lower Extremity (Bruising LE noted ) and Edema, Right Lower Extremity (Bruising LE noted )
Skin: No Rash
Neuro: Awake, Alert, Oriented, No Motor Deficits and Nonfocal/grossly intact
Psych: Calm
#Weakness/fatigue likely second acute on chronic HFpEF and pulmonary hypertension, and valvular disease
#Acute hypoxic respiratory insufficiency
#Elevated troponin suspect nonischemic myocardial injury
#Shock likely cardiogenic doubt septic
Start patient on 40 mg IV Lasix twice daily
With soft blood pressure required levophed support
Monitor creatinine closely with diuretics
Strict I's and O's. Daily weights.
Wean oxygen as tolerated
Echo 09/14 with EF of 58%. Normal ventricular size thickness and function. Mild mitral regurgitation. Mild to moderate aortic regurgitation. Moderate tricuspid regurgitation. PASP of 45-50 mmHg.
Cont Sildenafil. Seems to be off Ambrisentan
Trend troponin for now. proBNP of 2700 noted elevated compared to 10/15.
Chest x-ray noted.
Agree with cardiology. Need right heart catheterization.
Cardiology correspondence noted. Pulmonary eval requested
# Toxic metabolic encephalopathy transient likely secondary to hypoxemia vs. hypotension
-Doubt infection. Afebrile.
-Monitor mentation closely. If with repeat episode check CT head.
-Not on any opioids or benzodiazepines.
# Sinus tachycardia
-Toprol dose adjusted. Monitor for blood pressure.
#Hyponatremia likely 2/2 hypervolemia
-monitor closely with diuresis. Na improving.
#Hypokalemia
-replete/monitor
#R hip pain due to chronic right periprosthetic femur fracture
-Was admitted in 09/14 and ortho recs non operative management.
-was seen by Ortho in office and recs conservative management.
-Hip xray if wtih severe pain once more hemodynamically stable
-pain control. Ice pack
#Primary HTN
-BP controlled. Cont diuretics.
##Stage III chronic kidney disease
Cr stable. Monitor closely with diuretics
#hyperlipidemia
-Cont home regimen
#Minimal-change kidney disease,
#lupus/scleroderma overlap,
-Pt on 50mg prednisone at home-continued for her autoimmune condition. could cause water retention
#Chronic urinary retention with chronic Savage upon admission
Has had Savage since May 2023
#Iron and B12 deficiency anemia
Trend Hgb.
Continue with p.o. iron
Due for Vitamin b12 injection-will provide here.
Transfuse for hemoglobin less than 7
#Chronic thrombocytopenia
Continue to trend platelets. No active bleeding noted.
Transfuse as needed for platelets less than 20,000
# History of bilateral pulmonary embolism status post IVC filter placement
DVT prophylaxis SCDs in the setting of chronic thrombocytopenia and high risk of bleeding.
Full code
Anticipated Discharge: > 48 hours
Subjective/Interval History
-
Date of Service: December 03, 2023
feeling better
awake
remains tachycardiac
Objective Data
-
Labs:
Laboratory Results
12/03/23 12/03/23
04:42 10:38
WBC 7.9
Hgb 7.8 L
Hct 22.5 L
Plt Count 61 L D
Sodium 131 L
Potassium 4.0
Chloride 85 L
Carbon Dioxide 39 H
BUN 27 H
Creatinine 0.7
Glucose 104 H
Calcium 8.7
Vital Signs:
Vital Signs
Temp Pulse Resp BP Pulse Ox
97.9 F 134 25 96/59 100
12/03/23 07:06 12/03/23 10:24 12/03/23 10:24 12/03/23 10:07 12/03/23 10:00
I&O
12/02/23 12/03/23 12/04/23
06:59 06:59 06:59
Output Total 725 / 725 1150 / 1150
Balance -725 / -725 -1150 / -1150
Data Reviewed
-
Total Time Spent with Patient (in minutes): 51
--- NOTE | 2023-12-03 12:04 | W.PN.CARDCBS ---
Today's Communication / Plan
-
Continue diuresis
Monitor hemodynamics/telemetry
Limited 2D echocardiogram today
Will follow with you
Impression / Plan
-
Primary Supervisor Ticket Sales: Dr. Diann Bledsoe
Assessment:
Presentation with confusion, weakness
Hypotension, chronic
Hypokalemia
Hyponatremia
Acute hypoxic respiratory insufficiency
Elevated troponin, suspected nonischemic myocardial injury
Pulmonary hypertension, WHO Group 1 associated with crest, on revatio
Scleroderma with lupus overlap, diagnosed 04/2023
Chronic heart failure with improved EF
Recovered nonischemic cardiomyopathy
CKD stage 3A
Minimal change disease, on prednisone
hypertension
hyperlipidemia
GERD
osteoarthritis
history of bilateral PE status post IVC filter in 2007
Chronic iron deficiency anemia/thrombocytopenia
RHC 03/2023: Severe pulmonary hypertension with minimally elevated L sided filling pressures and no significant step up on shunt run, CI 2.3, SVR 1492
Echo 08/23/2023: EF 50%, mild MR, mild to moderate AR, moderate TR, PAP 45 to 50 mmHg
Plan:
-Presented with weakness/confusion and speech difficulties noticed by mobile home set up person. Patient denies worsening shortness of breath. As an outpatient diuretics had been adjusted recently and increased to 80 mg twice daily. Her outpatient prednisone had
also been decreased. She is not chronically on supplemental oxygen as an outpatient
-She chronically has lower blood pressure trends with adequate MAPs off of pressors
-Continue midodrine
-Pulse ox reported 92% on room air on admission currently 100% on 2 L nasal cannula. No reports of hypoxemia per review of vitals
-Unclear etiology of outpatient symptoms which have improved with O2/increased prednisone and diuresis
-Question consider CT head, will defer to primary
-Severe pulmonary hypertension with scleroderma/lupus and heart failure with preserved ejection fraction and chronic anemia
-Respiratory decompensation multifactorial with worsening of chronic anemia now with hemoglobin 7.8, pulmonary decompensation and mild fluid retention
-proBNP is increased when compared to prior consistent with acute on chronic heart failure preserved ejection fraction.
-Recent outpatient echo with slightly improved pulmonary pressures and repeat echocardiogram pending
-Spoke with pulmonary�no plan to pursue right heart catheterization at this time as it would not change coordinator
-Continue gentle diuresis.
-Replete K. Follow sodium
-O2 supplementation and evaluate for home oxygen needs
-Aspiration precautions
-Continue sildenafil
-Workup for possible underlying infectious process per primary service
Elevated troponin, suspect nonischemic myocardial injury. No chest pain.
-Sinus tachycardia on review of telemetry.
-Metoprolol succinate 12 and half milligrams twice daily resumed
-Check TSH
History of PE/IVC filter in 2007
Anemia/thrombocytopenia
-Monitor closely. Platelets slightly improved today. Hemoglobin stable
Discussed with family at bedside. Reviewed plan with pulmonary. Will follow with you
Progress Note - Supervisor Ticket Sales
Subjective
Date of Service: December 03, 2023
Seen and examined sitting out of bed to chair. Family at bedside. On 2 L nasal cannula. Reports confusion/speech issues have resolved. No chest pain or pressure. Denies worsening shortness of breath
Objective
Labs:
12/03/23 10:38
12/03/23 04:42
Labs
Hgb 7.8 g/dL (12.0-16.0) L 12/03/23 10:38
Hct 22.5 % (37.0-47.0) L 12/03/23 10:38
Plt Count 61 10^3/uL (130-400) L D 12/03/23 10:38
Sodium 131 mmol/L (135-145) L 12/03/23 04:42
Potassium 4.0 mmol/L (3.5-5.1) 12/03/23 04:42
BUN 27 mg/dl (7-17) H 12/03/23 04:42
Creatinine 0.7 mg/dL (0.6-1.0) 12/03/23 04:42
Glucose 104 mg/dl (70-99) H 12/03/23 04:42
Troponins
12/01/23 12/01/23 12/01/23
05:03 05:58 14:02
Troponin I 0.035 H* Cancelled 0.021
Vital Signs and I&O:
Vital Signs
Temp Pulse Resp BP Pulse Ox
97.9 F 134 25 96/59 100
12/03/23 07:06 12/03/23 10:24 12/03/23 10:24 12/03/23 10:07 12/03/23 10:00
Vital Signs
Temp Pulse Resp BP Pulse Ox
97.9 F 134 25 96/59 100
12/03/23 07:06 12/03/23 10:24 12/03/23 10:24 12/03/23 10:07 12/03/23 10:00
Intake & Output
12/01/23 12/02/23 12/03/23 12/04/23
06:59 06:59 06:59 06:59
Output Total 725 / 725 1150 / 1150
Balance -725 / -725 -1150 / -1150
Physical Exam
Physical Exam
General: 73-year-old female who appears chronically ill. AAOX3. cushingoid appearing
Heart: Regular, tachycardic. Positive S1-S2. No murmurs.
Lungs: Bronchovesicular breath sounds with fine crackles bilaterally
Abd: Positive BS, NT/ND, neg rebound/rigidity/guarding
Ext: trace edema
[2023-12-03] MEDS: FEOSOL 325 MG PO (12:33)
[2023-12-03] MEDS: DULCOLAX 10 MG RECTAL (14:13)
[2023-12-03] MEDS: COLACE 100 MG PO ×2 (14:13→20:45)
--- NOTE | 2023-12-03 17:01 | CM ---
Patient with Dx HF, TME, sinus tach, hyponatremia, anemia. O2 2L. Receiving Midodrine, IV Lasix. PT & OT recommend skilled rehab.
Spoke with patient's son KAROLINA Martinez; he agrees to short term SNF for rehab. The lives at [facility] and he may want that for his mother also for LTC. Discussed local SNFs and provided [facility] ratings. He is interested in [facility]
and [facility]. Son feels his mother will resist agreeing to SNF for rehab. Son would like to meet with CM on Wednesday with his mother to discuss rehab.
Plan family meeting Wednesday to discuss short term SNF for rehab.
--- NOTE | 2023-12-03 18:50 | PTCARENOTE ---
OOB most of the day. Assist x2. O2 weaned to 2L NC maintained sao2 93% . Bibase crackles weak occ. cough. SR/ST on tele - BP 90s/60s all day- midodrine administered as ordered. Chronic patel maintained- cleansed. Per daughter exchanged Sept
, at urology office. Pt had several small spurts of liquid brown stools- feels constipated. Colace started and Dulcolax given- pt had larger soft, loose stool. Mepilex foam on sacrum changed d/t soiling - stage 2 with few macerated areas around
it.
[2023-12-03] MEDS: LIPITOR 10 MG PO (20:45)
[2023-12-04] VITALS (9 sets, daily range): BP systolic 91–108; BP diastolic 55–66; BMI 25.9
--- NOTE | 2023-12-04 00:05 | PTCARENOTE ---
Patient is on 1L of oxygen n/c, sat- 95%.
[2023-12-04 04:52] LABS: % Basophils 0.2 % (0-2); % Eosinophils 0.1 % (0-6); % Immature Granulocytes 4.6 % (0-0.5); % Lymphocytes 4.6 % (20.5-51.1); % Monocytes 5.7 % (1.7-9.3); % Neutrophils 84.8 % (42.2-75.2); Absolute Immature Granulocytes 0.4 10^3/uL (0-0.05); Absolute Lymphocytes 0.4 10^3/uL (1.2-3.4); Absolute Monocytes 0.5 10^3/uL (0.1-0.6); Absolute Neutrophils 6.8 10^3/uL (1.4-6.5); Hematocrit 21.4 % (37.0-47.0); Hemoglobin 7.2 g/dL (12.0-16.0); Mean Corp Hgb Conc. 33.6 g/dL (33.0-37.0); Mean Corpuscular Hgb 37.1 pg (27.0-31.0); Mean Corpuscular Volume 110.3 fL (81.0-99.0); Mean Platelet Volume 10.7 fL (7.4-10.4); Nucleated Red Blood Cells % 0 %; Platelet Count 74 10^3/uL (130-400); Red Blood Cell Count 1.94 10^6/uL (4.20-5.40); Red Cell Dist. Width 17.9 % (11.5-14.5); White Blood Cell Count 8.1 10^3/uL (4.8-10.8)
[2023-12-04 05:10] LABS: Blood Urea Nitrogen 34 mg/dl (7-17); Calcium 9.2 mg/dl (8.4-10.2); Carbon Dioxide 37 mmol/L (22-30); Chloride 84 mmol/L (98-107); Estimated Creatinine Clearance 53 ml/min; Glucose 95 mg/dl (70-99); Magnesium 1.8 mg/dl (1.6-2.3); Sodium 129 mmol/L (135-145); eGFR > 60.00
--- NOTE | 2023-12-04 08:13 | W.PN.CARDCBS ---
Addendum entered and electronically signed by Adal Ballard MD 12/04/23 12:17:
Patient seen and examined
Agree with resident note and assessment
Agree with resident plan
�
����Physical Exam
�
���������������������General:��no apparent distress, not acutely ill
�
���������������������������Neck:��supple. no meningeal signs. normal psoterior pharynx
������������������������
���������������������������Heart:��s1/s2 regular rate and rhythm, no murmur. equal radial pulses.
�
��������������������������Lungs: ��no acute respiratory distress. clear bilaterally
�
����������������������Abdomen:�normal bowel sounds. not tender. no CVAT
�
��������������������������Neuro:��alert and oriented. no focal neurological deficits
�
������������������������������Skin: ��no rash
�
�����������������������Psychiatric:�well kept. interactive and cooperative
�
�����������������������Extremities:��no edema. no calf tenderness. negative homans. good distal pulses
�
�
�
��
��
����Physical Exam
�
���������������������General:��no apparent distress, not acutely ill
�
���������������������������Neck:��supple. no meningeal signs. normal psoterior pharynx
������������������������
���������������������������Heart:��s1/s2 regular rate and rhythm, no murmur. equal radial pulses.
�
��������������������������Lungs: ��no acute respiratory distress. clear bilaterally
�
����������������������Abdomen:�normal bowel sounds. not tender. no CVAT
�
��������������������������Neuro:��alert and oriented. no focal neurological deficits
�
������������������������������Skin: ��no rash
�
�����������������������Psychiatric:�well kept. interactive and cooperative
�
�����������������������Extremities:��no edema. no calf tenderness. negative homans. good distal pulses
�
Impression:
Presentation with weakness/fatigue
Hypotension, chronic
Hypokalemia
Resolved
Hyponatremia 129
Acute hypoxic respiratory insufficiency
Elevated troponin, suspected nonischemic myocardial injury
Pulmonary hypertension, WHO Group 1 associated with crest, on revatio
Scleroderma with lupus overlap, diagnosed 04/2023
Chronic heart failure with improved EF
Recovered nonischemic cardiomyopathy
CKD stage 3A
Minimal change disease, on prednisone
hypertension
hyperlipidemia
GERD
osteoarthritis
history of bilateral PE status post IVC filter in 2007
Chronic iron deficiency anemia/thrombocytopenia
RHC 03/2023: Severe pulmonary hypertension with minimally elevated L sided filling pressures and no significant step up on shunt run, CI 2.3, SVR 1492
Echo 12/02/2023: EF 55 to 60%, mild MR, mild to moderate AR, mild TR, PAP 45 mmHg
Echo 08/23/2023: EF 50%, mild MR, mild to moderate AR, moderate TR, PAP 45 to 50 mmHg
Plan:
Presentation with weakness/fatigue
-Most likely due to hypotension in the setting of pulmonary hypertension and acute on chronic HFpEF.
-Echo 12/01 with improved EF otherwise unchanged.
-Remains hypotensive on midodrine and metoprolol.
-Continue midodrine.
-Decrease metoprolol dose to 12.5 daily.
-Continue IV Lasix.
-Troponin peaked at 0.035.
-Creatinine at baseline 0.8.
-Consider right heart cath.
-Strict I's and O's with daily weights.
-Monitor blood pressure, keep MAP > 70mmHg
-Follow creatinine.
Acute hypoxic respiratory insufficiency
-Currently on 1 L O2 NC saturating at 96%, not on chronic home O2.
-Pulmonary decompensation multifactorial including fluid overload, and pulmonary disease most likely.
-Wean oxygen as tolerated.
-DuoNebs.
-Aspiration precautions
-Continue prednisone.
-Incentive spirometry.
Hyponatremia
-Most likely due to volume overload from acute on chronic HFpEF
-Continue IV Lasix.
-Monitor electrolytes and replete as needed.
Elevated troponin
-Troponin peaked at 0.035
-Suspect nonischemic myocardial injury with no chest pain.
-Sinus tachycardia on review of telemetry.
-Lower metoprolol succinate 12.5 mg once daily perhaps this will aid diuresis.
�
��
�
Original Note:
Today's Communication / Plan
-
Continue diuresis
DuoNebs
Consider right heart cath
Strict I's and O's with daily weights
Monitor and replete electrolytes, Hb and platelets
Impression / Plan
-
Primary Betting Agency Manager: Dr. Diann Bledsoe
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
initially presented to ED with fatigue, bilateral LE edema, SOB, confusion and weight gain.
Impression:
Presentation with weakness/fatigue
Hypotension, chronic
Hypokalemia
Resolved
Hyponatremia 129
Acute hypoxic respiratory insufficiency
Elevated troponin, suspected nonischemic myocardial injury
Pulmonary hypertension, WHO Group 1 associated with crest, on revatio
Scleroderma with lupus overlap, diagnosed 04/2023
Chronic heart failure with improved EF
Recovered nonischemic cardiomyopathy
CKD stage 3A
Minimal change disease, on prednisone
hypertension
hyperlipidemia
GERD
osteoarthritis
history of bilateral PE status post IVC filter in 2007
Chronic iron deficiency anemia/thrombocytopenia
RHC 03/2023: Severe pulmonary hypertension with minimally elevated L sided filling pressures and no significant step up on shunt run, CI 2.3, SVR 1492
Echo 12/02/2023: EF 55 to 60%, mild MR, mild to moderate AR, mild TR, PAP 45 mmHg
Echo 08/23/2023: EF 50%, mild MR, mild to moderate AR, moderate TR, PAP 45 to 50 mmHg
Plan:
Presentation with weakness/fatigue
-Most likely due to hypotension in the setting of pulmonary hypertension and acute on chronic HFpEF.
-Echo 12/01 with improved EF otherwise unchanged.
-Remains hypotensive on midodrine and metoprolol.
-Continue midodrine.
-Decrease metoprolol dose to 12.5 daily.
-Continue IV Lasix.
-Troponin peaked at 0.035.
-Creatinine at baseline 0.8.
-Consider right heart cath.
-Strict I's and O's with daily weights.
-Monitor blood pressure, keep MAP > 70mmHg
-Follow creatinine.
Acute hypoxic respiratory insufficiency
-Currently on 1 L O2 NC saturating at 96%, not on chronic home O2.
-Pulmonary decompensation multifactorial including fluid overload, and pulmonary disease most likely.
-Wean oxygen as tolerated.
-DuoNebs.
-Aspiration precautions
-Continue prednisone.
-Incentive spirometry.
Hyponatremia
-Most likely due to volume overload from acute on chronic HFpEF
-Continue IV Lasix.
-Monitor electrolytes and replete as needed.
Elevated troponin
-Troponin peaked at 0.035
-Suspect nonischemic myocardial injury with no chest pain.
-Sinus tachycardia on review of telemetry.
-Metoprolol succinate 12.5 mg once daily.
Anemia/thrombocytopenia
-Hb 7.2, PLT 74.
-Monitor closely and transfuse as needed.
History of PE/IVC filter in 2007
Data:
Echo 12/02/2023:
Limited follow-up 2D echocardiogram and Doppler
Normal LV size, wall thickness and systolic function with paradoxical septal
motion
LV ejection fraction visually estimated 55 to 60%
In limited views, right ventricle appears mildly dilated with overall preserved
RV systolic function
Mitral sclerosis with mild mitral regurgitation
Aortic sclerosis with trivial aortic regurgitation
Mild tricuspid regurgitation
Estimated pulmonary artery pressure of 52 mmHg, assuming a right atrial
pressure of 3 mmHg.
No pericardial effusion
Compared to prior study dated 08/23/2023, Tricuspid regurgitation previously
moderate with estimated pulmonary artery pressures 45-50 mmHg. Aortic
regurgitation previously graded mild to moderate.
Progress Note - Betting Agency Manager
Subjective
Date of Service: December 04, 2023
Patient seen and examined today lying comfortably in bed in no acute cardiopulmonary distress. She reports feeling better today with no acute complaints. She stated her breathing is okay. Denies chest pain, shortness of breath, palpitations,
abdominal pain fever or chills.
ROS negative except for BP 94/55, pulse 116, respiratory 20, afebrile, O2 sat 96% on 0.5 L NC
Objective
Labs:
12/04/23 04:31
12/04/23 04:31
Labs
Hgb 7.2 g/dL (12.0-16.0) L 12/04/23 04:31
Hct 21.4 % (37.0-47.0) L 12/04/23 04:31
Plt Count 74 10^3/uL (130-400) L D 12/04/23 04:31
Sodium 129 mmol/L (135-145) L 12/04/23 04:31
Potassium 5.0 mmol/L (3.5-5.1) 12/04/23 04:31
BUN 34 mg/dl (7-17) H 12/04/23 04:31
Creatinine 0.8 mg/dL (0.6-1.0) 12/04/23 04:31
Glucose 95 mg/dl (70-99) 12/04/23 04:31
Troponins
12/01/23
14:02
Troponin I 0.021
Vital Signs and I&O:
Vital Signs
Temp Pulse Resp BP Pulse Ox
98.2 F 90 17 99/65 96
12/04/23 03:37 12/04/23 06:00 12/04/23 06:00 12/04/23 04:20 12/04/23 05:00
Vital Signs
Temp Pulse Resp BP Pulse Ox
98.2 F 90 17 99/65 96
12/04/23 03:37 12/04/23 06:00 12/04/23 06:00 12/04/23 04:20 12/04/23 05:00
Intake & Output
12/02/23 12/03/23 12/04/23 12/05/23
06:59 06:59 06:59 06:59
Intake Total 1210 / 1210
Output Total 725 / 725 1150 / 1150 1025 / 1025
Balance -725 / -725 -1150 / -1150 185 / 185
Physical Exam
Physical Exam
General: 73-year-old female who appears chronically ill. AAOX3. cushingoid appearing
Heart: Regular, tachycardic. Positive S1-S2. Mild systolic murmurs.
Lungs: Bronchovesicular breath sounds with fine crackles bilaterally, bilateral wheezing.
Abd: Positive BS, NT/ND, neg rebound/rigidity/guarding
Ext: trace bilateral LE edema
[2023-12-04] MEDS: COLACE PO (09:05)
[2023-12-04] MEDS: ProAmatine 5 MG PO ×3 (09:05→17:15)
[2023-12-04] MEDS: REVATIO 20 MG PO ×3 (09:05→21:05)
[2023-12-04] MEDS: KCL 40 MEQ PO (09:06)
[2023-12-04] MEDS: DELTASONE 50 MG PO (09:06)
[2023-12-04] MEDS: TOPROL XL 12.5 MG PO (09:06)
[2023-12-04] MEDS: THERAGRAN 1 TABLET PO (09:07)
[2023-12-04] MEDS: LASIX 40 MG IV ×2 (09:07→16:25)
--- NOTE | 2023-12-04 09:50 | CON.ONC ---
Impression
Impression
Acute heart failure
Severe pulmonary hypertension
Crest syndrome with scleroderma/lupus overlap
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
Chronic anemia
B12 deficiency on B12 injections
Chronic thrombocytopenia
History of bilateral pulmonary embolism with IVC filter placement in 2007
Plan
Plan
Recent and past CBCs reviewed, along with complex medical history
Anemia and thrombocytopenia are likely multifactorial, related to underlying illnesses and medications
Macrocytosis persists despite adequate B12 repletion
Will stop oral iron. Iron studies are consistent with anemia of chronic disease/inflammation
Hemolysis panel in summer 2023 was negative with elevated haptoglobin, will repeat haptoglobin, LDH and reticulocyte count
Will check flow cytometry in light of elevated immature granulocytes
She has follow-up with Dr. Umair Baldwin in a few weeks. She may benefit from outpatient bone marrow biopsy if cytopenias persist without other explanation
Transfuse as clinically indicated
Patient History
History of Present Illness
I was asked to see patient regarding anemia
This is a 73-year-old female, known to Dr. Umair Baldwin, for chronic anemia and thrombocytopenia. She presented to the emergency room on December 01, 2023 with progressive weakness, weight gain, extremity swelling, cough and confusion. Her
medical history is significant, and noted for crest syndrome with scleroderma/lupus overlap, severe pulmonary hypertension, minimal-change kidney disease on chronic steroids, B12 deficiency on monthly B12 injections, congestive heart failure,
hypertension, chronic anemia and thrombocytopenia, history of bilateral pulmonary embolism with IVC filter placement in 2007, GERD and osteoarthritis.
CBC today shows hemoglobin of 7.2 with white blood cell count of 8.1. MCV is high at 110.3. WBC differential is noted for 4.6% immature granulocytes. Platelet count is 74. Creatinine is 0.8. Total bilirubin slightly elevated at 1.7. Iron
studies are consistent with anemia of chronic disease with ferritin of 422, saturation of 17% and TIBC of 220. B12 is greater than 1000, folate is greater than 20. Sodium is low at 129.
She was admitted to the IMU, started on intravenous diuretics, with Levophed for blood pressure support. Right heart catheterization is being considered.
Past-Medical/Surgical History
Past medical history is as per the HPI. Past surgical history includes bilateral total hip arthroplasty, hysterectomy, bladder surgery and cataract surgery
Social history: She is a non-smoker, drinks alcohol occasionally, lives alone.
Family history: Noncontributory
Patient Medication
�Medication �Instructions �Recorded �Confirmed �Last Taken �Type
cranberry extract 200 mg capsule 200 mg PO DAILY Supplement 09/10/22 12/01/23 08/13/23 History
(Ellura)
sildenafil (pulm.hypertension) 20 20 mg PO TID pulmonary hypertension 05/24/23 12/01/23 08/13/23 History
mg tablet
ferrous sulfate 325 mg (65 mg 325 mg PO NOON Supplement #0 tabs 08/25/23 12/01/23 08/13/23 Rx
iron) tablet (Iron (ferrous
sulfate))
atorvastatin 10 mg tablet 10 mg PO HS High cholesterol 30 09/09/23 12/01/23 Unknown Rx
days #30 tabs
metoprolol succinate 25 mg 12.5 mg (1/2 x 25 mg) PO BID Blood 09/09/23 12/01/23 Unknown Rx
tablet,extended release 24 hr pressure 30 days #30 tabs
multivitamin with folic acid 400 1 tab PO DAILY Supplement 30 days 09/09/23 12/01/23 Unknown Rx
mcg tablet (Tab-A-Lorna) #30 tabs
potassium chloride 20 mEq 40 meq (2 x 20 mEq) PO DAILY 09/09/23 12/01/23 Unknown Rx
tablet,extended release(part/cryst) supplement-hypokalemia 30 days #60
tabs
azelastine 137 mcg (0.1 %) nasal 1 spray intranasal BID Allergies 12/01/23 12/01/23 Unknown History
spray
collagenase clostridium histo. 250 1 applic topical DAILY Skin Issues 12/01/23 12/01/23 Unknown History
unit/gram topical ointment (Santyl)
cyanocobalamin (vitamin B-12) 1,000 mcg IM MONTHLY Supplement 12/01/23 12/01/23 Unknown History
1,000 mcg/mL injection solution
furosemide 40 mg tablet (Lasix) 80 mg PO BID Fluid 12/01/23 12/01/23 Unknown History
Retention/Swelling
prednisone 50 mg tablet 50 mg PO DAILY Autoimmune disorder 12/01/23 12/01/23 Unknown History
Active Medications
Generic Name Dose Route Start Last Admin
Trade Name Freq PRN Reason Stop Dose Admin
Acetaminophen 650 mg 12/01/23 14:35 12/02/23 09:25
Acetaminophen 325 Mg Tablet PO 12/29/23 14:34 650 mg
Q6HPRN PRN Administration
mild pain/ fever>100.5F
Albuterol/Ipratropium 3 ml 12/04/23 09:46
Ipratropium 0.5/Albuterol 3 Mg (3 Ml Ampul) INH
R Q4HPRN PRN
Wheezing
Protocol
Atorvastatin Calcium 10 mg 12/01/23 22:00 12/03/23 20:45
Atorvastatin (Lipitor) 10 Mg Tablet PO 12/29/23 21:59 10 mg
HS ELIZABETH Administration
Docusate Sodium 100 mg 12/03/23 20:00 12/04/23 09:05
Docusate Sodium 100 Mg Capsule PO 12/31/23 19:59 Not Given
BID ELIZABETH
Furosemide 40 mg 12/01/23 16:00 12/04/23 09:07
Furosemide 40 Mg (10 Mg/Ml) 4 Ml Vial IV 12/29/23 15:59 40 mg
BID AT 0800,1600 ELIZABETH Administration
Metoprolol Succinate 12.5 mg 12/02/23 10:00 12/04/23 09:06
Metoprolol 12.5 Mg Extended Release Dose (1/2 Of 25 Mg Xl Tablet) PO 12/30/23 09:59 12.5 mg
BID ELIZABETH Administration
Midodrine 5 mg 12/02/23 18:00 12/04/23 09:05
Midodrine 5 Mg Tablet PO 12/30/23 17:59 5 mg
TID@0800,1300,1800 ELIZABETH Administration
Multivitamins Therapeutic 1 tablet 12/02/23 08:00 12/04/23 09:07
Multivitamin Tablet PO 12/30/23 07:59 1 tablet
DAILY ELIZABETH Administration
Potassium Chloride 40 meq 12/02/23 08:00 12/04/23 09:06
Potassium Chloride 20 Meq Extended Release Tablet PO 12/30/23 07:59 40 meq
DAILY ELIZABETH Administration
Prednisone 50 mg 12/02/23 08:00 12/04/23 09:06
Prednisone 50 Mg Tablet PO 12/30/23 07:59 50 mg
DAILY ELIZABETH Administration
Sildenafil Citrate 20 mg 12/01/23 16:00 12/04/23 09:05
Sildenafil 20 Mg Tablet PO 12/29/23 15:59 20 mg
TID ELIZABETH Administration
Sodium Chloride 0 flush 12/01/23 17:00
Sodium Chloride 0.9% (Flush) Syringe IV 12/29/23 16:59
PER PROTOCOL ELIZABETH
Review of Systems
-
All Other Systems: Not reviewed unless documented
Physical Exam
-
General: Conversant and Appears Chronically Ill
HEENT: Moist Mucous Membranes
Cardiology: Normal Sinus Rhythm
Pulmonary: Other (Decreased breath sounds throughout)
GI: Soft
Extremities: Edema; Negative Phlebitic Signs
Skin: Warm and Dry
Psych: Calm and Intact Judgement/Insight
Labs
Lab Results
WBC 8.1 10^3/uL (4.8-10.8) 12/04/23 04:31
RBC 1.94 10^6/uL (4.20-5.40) L 12/04/23 04:31
Hgb 7.2 g/dL (12.0-16.0) L 12/04/23 04:31
Hct 21.4 % (37.0-47.0) L 12/04/23 04:31
MCV 110.3 fL (81.0-99.0) H 12/04/23 04:31
MCH 37.1 pg (27.0-31.0) H 12/04/23 04:31
MCHC 33.6 g/dL (33.0-37.0) 12/04/23 04:31
RDW 17.9 % (11.5-14.5) H 12/04/23 04:31
Plt Count 74 10^3/uL (130-400) L D 12/04/23 04:31
MPV 10.7 fL (7.4-10.4) H 12/04/23 04:31
Abs Immat Gran (auto) 0.4 10^3/uL (0-0.05) H 12/04/23 04:31
Absolute Neuts (auto) 6.8 10^3/uL (1.4-6.5) H 12/04/23 04:31
Absolute Lymphs (auto) 0.4 10^3/uL (1.2-3.4) L 12/04/23 04:31
Absolute Monos (auto) 0.5 10^3/uL (0.1-0.6) 12/04/23 04:31
Absolute Eos (auto) 0.0 10^3/uL (0-0.7) 12/04/23 04:31
Absolute Basos (auto) 0.0 10^3/uL (0-0.2) 12/04/23 04:31
Immature Gran % 4.6 % (0-0.5) H 12/04/23 04:31
Neutrophils % 84.8 % (42.2-75.2) H 12/04/23 04:31
Lymphocytes % 4.6 % (20.5-51.1) L 12/04/23 04:31
Monocytes % 5.7 % (1.7-9.3) 12/04/23 04:31
Eosinophils % 0.1 % (0-6) 12/04/23 04:31
Basophils % 0.2 % (0-2) 12/04/23 04:31
Creatinine 0.8 mg/dL (0.6-1.0) 12/04/23 04:31
Vital Signs
Vital Signs
Temp Pulse Resp BP Pulse Ox
97.9 F 116 20 94/55 96
12/04/23 07:05 12/04/23 09:06 12/04/23 08:00 12/04/23 09:05 12/04/23 05:00
[2023-12-04 10:55] LABS: Reticulocyte Count 4.7 % (0.4-2.8)
--- NOTE | 2023-12-04 12:46 | W.PN.HOSP.TC ---
Today's Communication/Plan
-
Wean o2
midodrine for pressure support
IV diuresis
trend cbc
Assessment / Plan
Assessment / Plan
General: Well Developed, Well Nourished and No Apparent Distress
HEENT: NormoCephalic, Moist mucous membranes, Atraumatic and Oxygen
Respiratory: Crackles and Decreased Breath Sounds
Cardiac: S1/S2 and Regular Rhythm; tachycardiac
GI: Soft, Non Tender, Non Distended and Normal Bowel Sounds; No Organomegaly
Musculoskeletal: No Clubbing, No Cyanosis, Edema, Left Lower Extremity (Bruising LE noted ) and Edema, Right Lower Extremity (Bruising LE noted ) improvement in lower extremity edema
Skin: No Rash
Neuro: Awake, Alert, Oriented, No Motor Deficits and Nonfocal/grossly intact
Psych: Calm
#Weakness/fatigue likely second acute on chronic HFpEF and pulmonary hypertension, and valvular disease
#Acute hypoxic respiratory insufficiency
#Elevated troponin suspect nonischemic myocardial injury
#Shock likely cardiogenic doubt septic
Start patient on 40 mg IV Lasix twice daily
With soft blood pressure required levophed support
Monitor creatinine closely with diuretics
Strict I's and O's. Daily weights.
Wean oxygen as tolerated
Echo 12/15 EF of 55 to 60%. Normal left ventricular size thickness and systolic function. Mitral sclerosis. PASP 52 mmHg. No pericardial effusion.
Cont Sildenafil. Seems to be off Ambrisentan
Trend troponin for now. proBNP of 2700 noted elevated compared to 10/15.
Chest x-ray noted.
Agree with cardiology. Need right heart catheterization.
Cardiology correspondence noted. Pulmonary eval noted
# Toxic metabolic encephalopathy transient likely secondary to hypoxemia vs. hypotension
-Doubt infection. Afebrile.
-Monitor mentation closely. If with repeat episode check CT head.
-Not on any opioids or benzodiazepines.
# Sinus tachycardia
-Toprol dose decreased 12.5 daily from BID dosing. Monitor for blood pressure.
#Hyponatremia likely 2/2 hypervolemia
-monitor closely with diuresis.
#Hypokalemia
-replete/monitor
#R hip pain due to chronic right periprosthetic femur fracture
-Was admitted in 09/14 and ortho recs non operative management.
-was seen by Ortho in office and recs conservative management.
-Hip xray if wtih severe pain once more hemodynamically stable
-pain control. Ice pack
#Primary HTN
-BP controlled. Cont diuretics.
##Stage III chronic kidney disease
Cr stable. Monitor closely with diuretics
#hyperlipidemia
-Cont home regimen
#Minimal-change kidney disease,
#lupus/scleroderma overlap,
-Pt on 50mg prednisone at home-continued for her autoimmune condition. could cause water retention
#Chronic urinary retention with chronic Savage upon admission
Has had Savage since May 2023
# Anemia of chronic disease
Trend Hgb.
DC p.o. iron. B12 folate appropriate
Oncology evaluation requested. Correspondence noted.
Transfuse for hemoglobin less than 7
#Chronic thrombocytopenia
Continue to trend platelets. No active bleeding noted.
Transfuse as needed for platelets less than 20,000
# History of bilateral pulmonary embolism status post IVC filter placement
DVT prophylaxis SCDs in the setting of chronic thrombocytopenia and high risk of bleeding.
Full code
PT/OT-SNF. CM Aware.
update son sarina over the phone in details
Anticipated Discharge: > 48 hours
Subjective/Interval History
-
Date of Service: December 04, 2023
sitting in chair
feeling better
Denies any hematuria or blood in the stool
Objective Data
-
Labs:
Laboratory Results
12/04/23
04:31
WBC 8.1
Hgb 7.2 L
Hct 21.4 L
Plt Count 74 L D
Sodium 129 L
Potassium 5.0
Chloride 84 L
Carbon Dioxide 37 H
BUN 34 H
Creatinine 0.8
Glucose 95
Calcium 9.2
Vital Signs:
Vital Signs
Temp Pulse Resp BP Pulse Ox
98.4 F 116 20 94/55 97
12/04/23 11:05 12/04/23 09:06 12/04/23 08:00 12/04/23 09:05 12/04/23 08:00
I&O
12/03/23 12/04/23 12/05/23
06:59 06:59 06:59
Intake Total 1210 / 1210
Output Total 1150 / 1150 1025 / 1025
Balance -1150 / -1150 185 / 185
Data Reviewed
-
Total Time Spent with Patient (in minutes): 52
--- NOTE | 2023-12-04 15:14 | W.PN.PUL3 ---
Today's Communication / Plan
-
Continue gentle diuresis
Wean off oxygen
Chronic prednisone therapy
Incentive spirometry
Outpatient pulmonary follow-up
Sign off
Assessment
-
73-year-old female with a history of autoimmune disease that is complex including crest and lupus currently not on immunosuppressive medications as well as pulmonary hypertension previously followed by Dr. Candelaria Rendon-not seen in over a year-who
presented with weakness and confusion-pulmonary consulted for pulmonary hypertension 12/03/2023.
Chronic CHF-preserved EF
Elevated troponin
TME
Sndbfx-dcypjmcreh-HIR 108.8
Thrombocytopenia-platelet count 41
Hyponatremia-serum sodium 130
Mild hyperglycemia
Conditions present prior to admission:
Hypertension.
Hyperlipidemia.
CHF preserved EF.
Crest/lupus/scleroderma overlap.
Pulm hypertension.
PE 2006.
Mitral regurgitation.
GERD.
Osteoarthritis.
Thrombocytopenia.
Glaucoma.
Shingles.
Bilateral: Hip arthroplasty. Hysterectomy. Bladder surgery. Cataract surgery.
Plan
At this point no evidence for acute pulmonary process.
Chest x-ray: This admission without acute abnormalities.
Minimal oxygen requirements-wean off as able.
Incentive spirometry
Aspiration precautions
Nebulizers if needed-currently not bronchospastic
Prednisone 50 mg initiated by primary team-no need from a pulmonary perspective
Cardiology following-correspondence reviewed
Trend troponin
Gentle diuresis
Monitor renal function, electrolytes, intake/output, lower extremity edema and weight
Replace electrolytes as needed
Repeat echocardiogram pending
Consideration towards right heart catheterization per cardiology
Last echocardiogram August 2023 pulmonary pressures have actually improved compared to July 2022-summarized below
Continues with sildenafil-off Ambisentan
SLE/scleroderma overlap
Cushingoid face
High doses of prednisone: Patient has been gaining weight. Suspect some degree of muscle weakness as well contributing to her shortness of breath.
She continues on 50 mg of prednisone for autoimmune disorder. Continue to follow with rheumatology.
Follow hemoglobin
Transfuse as needed
Check B12 and folate if not already done
Follow thrombocytopenia
DVT prophylaxis-mechanical with anemia and thrombocytopenia
Patient last saw Dr. Candelaria Rendon 09/07/2022 and canceled late for an appointment 08/19/2023-will ask to return for full PFTs, etc.

Diagnostic data:
CXR 03/11/22: Mild pulmonary edema.CXR 02/19/2022: Cardiomegaly.� Pulmonary vascularity is at least top normal.� Cannot exclude mild CHF.� Suspected approximate 0.8 cm nodule in the right upper lobe.� CT chest suggested unable to obtain.
Chest x-ray 09/06/2023-clear lungs, no change
Chest x-ray 12/01/2023-NAD
CT Chest 06/02/22: 3 mm nodule in the lateral segment of the right middle lobe.� Follow-up in 1 year may be considered patient is at high risk.� Mild regions of subpleural linear and reticular interstitial thickening noted in the peripheral upper
lobes, right greater than left.� Nonspecific.� Possibly reflecting mild obliterative or infective bronchiolitis, interstitial scarring, or mild/early fibrotic changes.� Moderate hiatal hernia.� Reflux suggested.� Probable localized fibroglandular
asymmetry along the posterior lateral aspect of the right breast, recommend correlation with mammogram.���������U
BLE 03/11/22: No DVT
VQ Scan 03/11/22: Very low probability of PE.
ECHO 08/04/22: 1. Mild left ventricular hypertrophy with septal flattening consistent with RV pressure/volume overload, EF 50%� 2. Thickened mitral leaflets, mitral annular calcification, mild to moderate mitral regurgitation and mildly dilated left
atrium 3. Aortic sclerosis with mild aortic regurgitation 4. Dilated and hypokinetic right ventricle with right ventricular hypertrophy, dilated right atrium, moderate to severe tricuspid regurgitation and severe pulmonary hypertension, 79-84 mmHg
systolic. Mildly dilated pulmonary artery with mild to moderate pulmonary regurgitation
Echocardiogram 08/23/2023-EF 50%, mild mitral regurgitation, PA systolic 26-46-[id number] pulmonary pressures July 2022 PA systolic 79-84
PFTs 09/07/22: FEV1 1.08L 51%, FVC 1.74L 62%, ratio 62.� Post FEV1 1.16L 54%.� No significant bronchodilator response.� TLC 3.95L 84%, DLCO 41%��������
PFT 03/12/2022: FVC 1.71/57%, FEV1 1.23/54%, ratio 72%, significant BD response in small airways, TLC 4.43/90%,RV 2.72/132%, DLCO 9.35/44%, DLCO/VA 2.65/61%..
Subjective Data
-
Date of Service:
Date of Service: December 04, 2023
Chief Complaint: Pulmonary Follow Up (Shortness of breath/pulm hypertension)
Subjective:
Sitting out of bed
Overall feels better since admission
Denies any cough or phlegm production
Review of Systems
Cardiopulmonary: Dyspnea (improved)
GI: Abdominal Pain (n) and Nausea (n)
Objective Data
Data Reviewed
Vital Signs / I&O / Oxygen:
Vital Signs
Temp Pulse Resp BP Pulse Ox
98.4 F 116 20 94/55 97
12/04/23 11:05 12/04/23 09:06 12/04/23 08:00 12/04/23 09:05 12/04/23 08:00
Intake and Output
12/03/23 12/04/23 12/05/23
06:59 06:59 06:59
Intake Total 1210 / 1210
Output Total 1150 / 1150 1025 / 1025
Balance -1150 / -1150 185 / 185
SaO2 97
Nasal Cannula flow liters per 1
minute
Physical Exam
General: Comfortable
HEENT: Normocephalic
Cardiovascular: S1-S2
Respiratory: Crackles (Bibasilar) and Non-Labored Respirations
GI: Soft and Non Distended
Neurology: Awake, Alert and No Motor Deficits
Skin: Warm
Labs/Micro/Reports
Lab Data
12/04/23 04:31
12/04/23 04:31
Microbiology
12/01/23 11:37 Urine Urine Culture - Final
--- NOTE | 2023-12-04 19:45 | PTCARENOTE ---
unable to verify VS captured prior to 190
[2023-12-04] MEDS: COLACE 100 MG PO (21:05)
[2023-12-04] MEDS: LIPITOR 10 MG PO (21:05)
--- NOTE | 2023-12-04 23:04 | PTCARENOTE ---
Pt received from previous shift in bed. AAOx3, HYDABURG. Telemetry - ST. Full physical documented (refer to worklist). HS hygiene/patel care completed. Sacral foam changed. Turned and repositioned for comfort. Took medications whole in applesauce
without incident. Knee high SCDs in place. #20 RW/#20 LAC INTs patent. Call almaraz within reach. Plan of care ongoing.
[2023-12-05] VITALS (17 sets, daily range): BP systolic 84–110; BP diastolic 50–70; PULSE 111; O2SAT 94; BMI 26.4
[2023-12-05 05:39] LABS: Hematocrit 20.6 % (37.0-47.0); Hemoglobin 7.1 g/dL (12.0-16.0); Mean Corp Hgb Conc. 34.5 g/dL (33.0-37.0); Mean Corpuscular Hgb 39.2 pg (27.0-31.0); Mean Corpuscular Volume 113.8 fL (81.0-99.0); Mean Platelet Volume 10.5 fL (7.4-10.4); Platelet Count 96 10^3/uL (130-400); Red Blood Cell Count 1.81 10^6/uL (4.20-5.40); Red Cell Dist. Width 17.5 % (11.5-14.5); Reticulocyte Count 4.6 % (0.4-2.8); White Blood Cell Count 8.8 10^3/uL (4.8-10.8)
[2023-12-05 05:41] LABS: Blood Urea Nitrogen 34 mg/dl (7-17); Calcium 9.2 mg/dl (8.4-10.2); Carbon Dioxide 38 mmol/L (22-30); Chloride 86 mmol/L (98-107); Estimated Creatinine Clearance 47 ml/min; Glucose 90 mg/dl (70-99); LDH 324 U/L (120-246); Potassium 4.7 mmol/L (3.5-5.1); Sodium 130 mmol/L (135-145); Total Bilirubin 1.1 mg/dl (0.2-1.3); eGFR > 60.00
--- NOTE | 2023-12-05 05:53 | PTCARENOTE ---
LUCY covering house made aware of H/H via TT.
[2023-12-05 07:30] LABS: % Basophils 0.2 % (0-2); % Eosinophils 0.2 % (0-6); % Immature Granulocytes 6.1 % (0-0.5); % Lymphocytes 4.2 % (20.5-51.1); % Monocytes 5.9 % (1.7-9.3); % Neutrophils 83.4 % (42.2-75.2); Absolute Immature Granulocytes 0.5 10^3/uL (0-0.05); Absolute Lymphocytes 0.4 10^3/uL (1.2-3.4); Absolute Monocytes 0.5 10^3/uL (0.1-0.6); Absolute Neutrophils 7.3 10^3/uL (1.4-6.5); Nucleated Red Blood Cells % 0.5 %
[2023-12-05] MEDS: TOPROL XL 12.5 MG PO (09:35)
[2023-12-05] MEDS: DELTASONE 50 MG PO (09:35)
[2023-12-05] MEDS: ProAmatine 5 MG PO ×3 (09:35→17:08)
[2023-12-05] MEDS: REVATIO 20 MG PO ×3 (09:35→22:25)
[2023-12-05] MEDS: THERAGRAN 1 TABLET PO (09:35)
[2023-12-05] MEDS: KCL 40 MEQ PO (09:36)
[2023-12-05] MEDS: COLACE 100 MG PO ×2 (09:36→19:49)
[2023-12-05] MEDS: LASIX 40 MG IV ×2 (09:36→17:07)
--- NOTE | 2023-12-05 09:50 | W.PN.CARDCBS ---
Today's Communication / Plan
-
IV diuresis
Impression / Plan
-
Primary Parer: Dr. Diann Bledsoe
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
initially presented to ED with fatigue, bilateral LE edema, SOB, confusion and weight gain.
Impression:
Presentation with weakness/fatigue
Hypotension, chronic
Hypokalemia
Resolved
Hyponatremia 129
Acute hypoxic respiratory insufficiency
Elevated troponin, suspected nonischemic myocardial injury
Pulmonary hypertension, WHO Group 1 associated with crest, on revatio
Scleroderma with lupus overlap, diagnosed 04/2023
Chronic heart failure with improved EF
Recovered nonischemic cardiomyopathy
CKD stage 3A
Minimal change disease, on prednisone
hypertension
hyperlipidemia
GERD
osteoarthritis
history of bilateral PE status post IVC filter in 2007
Chronic iron deficiency anemia/thrombocytopenia
RHC 03/2023: Severe pulmonary hypertension with minimally elevated L sided filling pressures and no significant step up on shunt run, CI 2.3, SVR 1492
Echo 12/02/2023: EF 55 to 60%, mild MR, mild to moderate AR, mild TR, PAP 45 mmHg
Echo 08/23/2023: EF 50%, mild MR, mild to moderate AR, moderate TR, PAP 45 to 50 mmHg
Plan:
Presentation with weakness/fatigue
-Most likely due to hypotension in the setting of pulmonary hypertension and acute on chronic HFpEF.
-Echo 12/01 with improved EF otherwise unchanged.
-Remains hypotensive on midodrine and metoprolol.
-Continue midodrine.
-Decrease metoprolol dose to 12.5 daily.
-Continue IV Lasix.
-Troponin peaked at 0.035.
-Creatinine at baseline 0.8.
-Consider right heart cath.
-Strict I's and O's with daily weights.
-Monitor blood pressure, keep MAP > 70mmHg
-Follow creatinine.
Acute hypoxic respiratory insufficiency
-Currently on 1 L O2 NC saturating at 96%, not on chronic home O2.
-Pulmonary decompensation multifactorial including fluid overload, and pulmonary disease most likely.
-Wean oxygen as tolerated.
-DuoNebs.
-Aspiration precautions
-Continue prednisone.
-Incentive spirometry.
Hyponatremia
-Most likely due to volume overload from acute on chronic HFpEF
-Continue IV Lasix.
-Monitor electrolytes and replete as needed.
Elevated troponin
-Troponin peaked at 0.035
-Suspect nonischemic myocardial injury with no chest pain.
-Sinus tachycardia on review of telemetry.
-Metoprolol succinate 12.5 mg once daily.
Anemia/thrombocytopenia
-Hb 7.2, PLT 74.
-Monitor closely and transfuse as needed.
History of PE/IVC filter in 2007
Data:
Echo 12/02/2023:
Limited follow-up 2D echocardiogram and Doppler
Normal LV size, wall thickness and systolic function with paradoxical septal
motion
LV ejection fraction visually estimated 55 to 60%
In limited views, right ventricle appears mildly dilated with overall preserved
RV systolic function
Mitral sclerosis with mild mitral regurgitation
Aortic sclerosis with trivial aortic regurgitation
Mild tricuspid regurgitation
Estimated pulmonary artery pressure of 52 mmHg, assuming a right atrial
pressure of 3 mmHg.
No pericardial effusion
Compared to prior study dated 08/23/2023, Tricuspid regurgitation previously
moderate with estimated pulmonary artery pressures 45-50 mmHg. Aortic
regurgitation previously graded mild to moderate.
Progress Note - Parer
Subjective
Date of Service: December 05, 2023
Total Time Spent with Patient (in minutes): Feels about the same
Objective
Labs:
12/05/23 04:48
12/05/23 04:48
Labs
Hgb 7.1 g/dL (12.0-16.0) L 12/05/23 04:48
Hct 20.6 % (37.0-47.0) L* 12/05/23 04:48
Plt Count 96 10^3/uL (130-400) L D 12/05/23 04:48
Sodium 130 mmol/L (135-145) L 12/05/23 04:48
Potassium 4.7 mmol/L (3.5-5.1) 12/05/23 04:48
BUN 34 mg/dl (7-17) H 12/05/23 04:48
Creatinine 0.9 mg/dL (0.6-1.0) 12/05/23 04:48
Glucose 90 mg/dl (70-99) 12/05/23 04:48
Vital Signs and I&O:
Vital Signs
Temp Pulse Resp BP Pulse Ox
98.0 F 111 16 104/61 95
12/05/23 04:11 12/05/23 09:35 12/05/23 04:00 12/05/23 09:35 12/05/23 03:00
Vital Signs
Temp Pulse Resp BP Pulse Ox
98.0 F 111 16 104/61 95
12/05/23 04:11 12/05/23 09:35 12/05/23 04:00 12/05/23 09:35 12/05/23 03:00
Intake & Output
12/03/23 12/04/23 12/05/23 12/06/23
06:59 06:59 06:59 06:59
Intake Total 1210 / 1210
Output Total 1150 / 1150 1025 / 1025
Balance -1150 / -1150 185 / 185
Physical Exam
Physical Exam
�
����Physical Exam
�
���������������������General:��no apparent distress, not acutely ill
�
���������������������������Neck:��supple. no meningeal signs. normal psoterior pharynx
������������������������
���������������������������Heart:��s1/s2 regular rate and rhythm, no murmur. equal radial pulses.
�
��������������������������Lungs: ��no acute respiratory distress. clear bilaterally
�
����������������������Abdomen:�normal bowel sounds. not tender. no CVAT
�
��������������������������Neuro:��alert and oriented. no focal neurological deficits
�
������������������������������Skin: ��no rash
�
�����������������������Psychiatric:�well kept. interactive and cooperative
�
�����������������������Extremities:��no edema. no calf tenderness. negative homans. good distal pulses
�
�
�
��
�
--- NOTE | 2023-12-05 10:35 | W.PN.HOSP.TC ---
Today's Communication/Plan
-
transfuse 1u PRBC
IV lasix
trend bmp
wean o2 as tolerated
Assessment / Plan
Assessment / Plan
General: Well Developed, Well Nourished and No Apparent Distress
HEENT: NormoCephalic, Moist mucous membranes, Atraumatic and Oxygen
Respiratory: Decreased breath sound, oxygen
Cardiac: S1/S2 and Regular Rhythm; tachycardiac
GI: Soft, Non Tender, Non Distended and Normal Bowel Sounds; No Organomegaly
Musculoskeletal: No Clubbing, No Cyanosis, Edema, Left Lower Extremity (Bruising LE noted ) and Edema, Right Lower Extremity (Bruising LE noted ) improvement in lower extremity edema
Skin: No Rash
Neuro: Awake, Alert, Oriented, No Motor Deficits and Nonfocal/grossly intact
Psych: Calm
#Weakness/fatigue likely second acute on chronic HFpEF and pulmonary hypertension, and valvular disease
#Acute hypoxic respiratory insufficiency
#Elevated troponin suspect nonischemic myocardial injury
#Shock likely cardiogenic doubt septic
Start patient on 40 mg IV Lasix twice daily
With soft blood pressure required levophed support and off. Started on midodrine.
Monitor creatinine closely with diuretics
Strict I's and O's. Daily weights.
Wean oxygen as tolerated
Echo 12/15 EF of 55 to 60%. Normal left ventricular size thickness and systolic function. Mitral sclerosis. PASP 52 mmHg. No pericardial effusion.
Cont Sildenafil. Seems to be off Ambrisentan
Trend troponin for now. proBNP of 2700 noted elevated compared to 10/15.
Chest x-ray noted.
Agree with cardiology. Need right heart catheterization.
Cardiology correspondence noted. Pulmonary eval noted
#Toxic metabolic encephalopathy transient likely secondary to hypoxemia vs. hypotension
-Doubt infection. Afebrile.
-Monitor mentation closely. If with repeat episode check CT head.
-Not on any opioids or benzodiazepines. Resolved.
# Sinus tachycardia
-Toprol dose decreased 12.5 daily from BID dosing. Monitor for blood pressure.
-PRBC transfusion could help with tachycardia
#Hyponatremia likely 2/2 hypervolemia
-monitor closely with diuresis.
#Hypokalemia
-replete/monitor
#R hip pain due to chronic right periprosthetic femur fracture
-Was admitted in 09/14 and ortho recs non operative management.
-was seen by Ortho in office and recs conservative management.
-Hip xray if wtih severe pain once more hemodynamically stable
-pain control. Ice pack
#Primary HTN
-BP controlled. Cont diuretics.
##Stage III chronic kidney disease
Cr stable. Monitor closely with diuretics
#hyperlipidemia
-Cont home regimen
#Minimal-change kidney disease,
#lupus/scleroderma overlap,
-Pt on 50mg prednisone at home-continued for her autoimmune condition. could cause water retention
#Chronic urinary retention with chronic Savage upon admission
Has had Savage since May 2023
# Anemia of chronic disease
Trend Hgb.
DC p.o. iron. B12 folate appropriate
Oncology evaluation requested. Correspondence noted.
Hemoglobin of 7.1 with hematocrit of 20.6. Will transfuse 1 unit of PRBC.
#Chronic thrombocytopenia
Continue to trend platelets. No active bleeding noted.
Transfuse as needed for platelets less than 20,000
Platelets starting to improve
# History of bilateral pulmonary embolism status post IVC filter placement
DVT prophylaxis SCDs in the setting of chronic thrombocytopenia and high risk of bleeding.
Full code
PT/OT-SNF. CM Aware. Pt and family agreed.
update son sarina over the phone in details on 12/03
Anticipated Discharge: > 48 hours
Subjective/Interval History
-
Date of Service: December 05, 2023
States starting to feel better
States improvement in upper and lower extremity edema
Remains with mildly sinus tachycardia
Objective Data
-
Labs:
Laboratory Results
12/05/23
04:48
WBC 8.8
Hgb 7.1 L
Hct 20.6 L*
Plt Count 96 L D
Sodium 130 L
Potassium 4.7
Chloride 86 L
Carbon Dioxide 38 H
BUN 34 H
Creatinine 0.9
Glucose 90
Calcium 9.2
Total Bilirubin 1.1
Vital Signs:
Vital Signs
Temp Pulse Resp BP Pulse Ox
98.0 F 111 16 104/61 95
12/05/23 04:11 12/05/23 09:35 12/05/23 04:00 12/05/23 09:35 12/05/23 03:00
I&O
12/04/23 12/05/23 12/06/23
06:59 06:59 06:59
Intake Total 1210 / 1210
Output Total 1025 / 1025
Balance 185 / 185
Data Reviewed
-
Total Time Spent with Patient (in minutes): 53
--- NOTE | 2023-12-05 12:05 | PTCARENOTE ---
pt aaox3. states no pain. 1lnc breath sounds diminished. oob with 2 person assist to chair. prbc running as ordered. inc of stool. dressing changed.
[2023-12-05] MEDS: TYLENOL 650 MG PO (12:17)
--- NOTE | 2023-12-05 19:00 | PTCARENOTE ---
report received from previous RN. pt AAOx2, unable to state month but able to recall year and day of the week. pt forgetful. generalized weakness throughout. SR on telemetry heart rate 80-90s. pulses palpable. +1 pitting lower extremity edema. pt on
1L nasal cannula, sat 94-97%. frequent moist non productive cough. lung sounds diminished. active bowel sounds. chronic patel draining yellow urine. pt udpated on plan of care. see worklist for full nursing assessment and interventions.
[2023-12-05] MEDS: LIPITOR 10 MG PO (22:25)
[2023-12-06] VITALS (13 sets, daily range): BP systolic 88–124; BP diastolic 44–70; BMI 26.0
[2023-12-06 04:59] LABS: Blood Urea Nitrogen 31 mg/dl (7-17); Calcium 8.9 mg/dl (8.4-10.2); Carbon Dioxide 37 mmol/L (22-30); Chloride 88 mmol/L (98-107); Estimated Creatinine Clearance 53 ml/min; Glucose 94 mg/dl (70-99); Potassium 4.5 mmol/L (3.5-5.1); Sodium 131 mmol/L (135-145); eGFR > 60.00
[2023-12-06 05:03] LABS: Hematocrit 25.1 % (37.0-47.0); Hemoglobin 8.7 g/dL (12.0-16.0); Mean Corp Hgb Conc. 34.7 g/dL (33.0-37.0); Mean Corpuscular Hgb 36.9 pg (27.0-31.0); Mean Corpuscular Volume 106.4 fL (81.0-99.0); Mean Platelet Volume 10.4 fL (7.4-10.4); Platelet Count 97 10^3/uL (130-400); Red Blood Cell Count 2.36 10^6/uL (4.20-5.40); Red Cell Dist. Width 22.1 % (11.5-14.5); White Blood Cell Count 8.9 10^3/uL (4.8-10.8)
--- NOTE | 2023-12-06 07:05 | W.PN.HOSP.TC ---
Today's Communication/Plan
-
Lasix
Metoprolol
Midodrine
Sildenafil
Assessment / Plan
Assessment / Plan
Physical exam:
General: Well Developed, Well Nourished and No Apparent Distress
HEENT: NormoCephalic, Moist mucous membranes, Atraumatic and Oxygen
Respiratory: Decreased breath sound, oxygen
Cardiac: S1/S2 and Regular Rhythm; tachycardiac
GI: Soft, Non Tender,
Musculoskeletal: No Clubbing, No Cyanosis, Edema, Left Lower Extremity (Bruising LE noted ) and Edema, Right Lower Extremity (Bruising LE noted ) improvement in lower extremity edema
Skin: No Rash
Neuro: Awake, Alert, Oriented to surroundings, No Motor Deficits and Nonfocal/grossly intact
Psych: Calm
#Weakness/fatigue likely second acute on chronic HFpEF and pulmonary hypertension, and valvular disease
#Acute hypoxic respiratory insufficiency
#Elevated troponin suspect nonischemic myocardial injury
#Shock likely cardiogenic doubt septic
Started patient on 40 mg IV Lasix twice daily
With soft blood pressure required Levophed support and off. Started on midodrine.
Monitor creatinine closely with diuretics
Strict I's and O's. Daily weights.
Wean oxygen as tolerated
Echo 12/02/23 EF of 55 to 60%. Normal left ventricular size thickness and systolic function. Mitral sclerosis. PASP 52 mmHg. No pericardial effusion.
Cont Sildenafil. Seems to be off Ambrisentan
Trend troponin for now. proBNP of 2700 noted elevated compared to 10/15.
Chest x-ray noted.
Agree with cardiology. Need right heart catheterization.
Cardiology correspondence noted. Pulmonary eval noted
#Toxic metabolic encephalopathy transient likely secondary to hypoxemia vs. hypotension
-Doubt infection. Afebrile.
-Monitor mentation closely. She followed commands.
-Not on any opioids or benzodiazepines. Resolved.
# Sinus tachycardia
-Toprol dose decreased 12.5 daily from BID dosing. Monitor for blood pressure.
-PRBC transfusion could help with tachycardia
#Hyponatremia likely 2/2 hypervolemia
-monitor closely with diuresis.
#Hypokalemia
-replete/monitor
#R hip pain due to chronic right periprosthetic femur fracture
-Was admitted in 09/14 and ortho recs non operative management.
-was seen by Ortho in office and recs conservative management.
-Hip xray if wtih severe pain once more hemodynamically stable
-pain control. Ice pack
#Primary HTN
-BP controlled. Cont diuretics.
##Stage III chronic kidney disease
Cr stable. Monitor closely with diuretics
#hyperlipidemia
-Cont home regimen
#Minimal-change kidney disease,
#lupus/scleroderma overlap,
-Pt on 50mg prednisone at home-continued for her autoimmune condition.
#Chronic urinary retention with chronic Savage upon admission
Has had Savage since May 2023
# Anemia of chronic disease
Trend Hgb.
DC p.o. iron. B12 folate appropriate
Oncology evaluation requested. Correspondence noted.
Hemoglobin of 7.1 with hematocrit of 20.6. Will transfuse 1 unit of PRBC.
#Chronic thrombocytopenia
Continue to trend platelets. No active bleeding noted.
Transfuse as needed for platelets less than 20,000
Platelets starting to improve
# History of bilateral pulmonary embolism status post IVC filter placement
DVT prophylaxis SCDs in the setting of chronic thrombocytopenia and high risk of bleeding.
Full code
PT/OT-SNF. CM Aware. Pt and family agreed.
Total time spent to see the patient on the floor, examine the patient, review data and lab results, discuss treatment plan with patient, nursing staff around [address] Dover update son sarina over the phone in details on 12/03
Anticipated Discharge: > 48 hours
Subjective/Interval History
-
Date of Service: December 06, 2023
Objective Data
-
Labs:
Laboratory Results
12/06/23
04:20
WBC 8.9
Hgb 8.7 L D
Hct 25.1 L
Plt Count 97 L
Sodium 131 L
Potassium 4.5
Chloride 88 L
Carbon Dioxide 37 H
BUN 31 H
Creatinine 0.8
Glucose 94
Calcium 8.9
Vital Signs:
Vital Signs
Temp Pulse Resp BP Pulse Ox
97.5 F 89 16 97/61 96
12/06/23 04:47 12/06/23 06:00 12/06/23 06:00 12/06/23 06:00 12/06/23 06:00
I&O
12/05/23 12/06/23 12/07/23
06:59 06:59 06:59
Intake Total 250 / 250
Output Total 1350 / 1350
Balance -1100 / -1100
[2023-12-06 07:50] LABS: % Basophils 0.3 % (0-2); % Eosinophils 0.1 % (0-6); % Immature Granulocytes 5.8 % (0-0.5); % Lymphocytes 3.7 % (20.5-51.1); % Monocytes 5.2 % (1.7-9.3); % Neutrophils 84.9 % (42.2-75.2); Absolute Immature Granulocytes 0.5 10^3/uL (0-0.05); Absolute Lymphocytes 0.3 10^3/uL (1.2-3.4); Absolute Monocytes 0.5 10^3/uL (0.1-0.6); Absolute Neutrophils 7.5 10^3/uL (1.4-6.5); Nucleated Red Blood Cells % 0.7 %
[2023-12-06 07:55] LABS: Normal RBC Morphology No
[2023-12-06 07:56] LABS: Anisocytosis Slight; Hypochromasia Slight; Macrocytosis Slight
[2023-12-06] MEDS: COLACE PO (08:22)
[2023-12-06] MEDS: REVATIO 20 MG PO ×3 (08:23→20:58)
[2023-12-06] MEDS: THERAGRAN 1 TABLET PO (08:23)
[2023-12-06] MEDS: KCL 40 MEQ PO (08:23)
[2023-12-06] MEDS: DELTASONE 50 MG PO (08:23)
[2023-12-06] MEDS: TOPROL XL 12.5 MG PO (08:23)
[2023-12-06] MEDS: LASIX 40 MG IV ×2 (08:23→15:43)
[2023-12-06] MEDS: ProAmatine 5 MG PO ×3 (08:23→17:02)
--- NOTE | 2023-12-06 10:16 | CON.GI ---
Addendum entered and electronically signed by Morris Saxena MD 12/06/23 13:15:
I saw and examined the patient.
The PA's note was reviewed and I agree with the note.
Comment:
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
large hiatal hernia who p/w weakness and confusion. Admitted for acute on chronic exacerbation of CHF and pHTN. She was noted to be anemic and have heme+ve stool.
Impression / Rec:
1. Anemia/heme+ve stool - denies overt signs of bleeding including melena/rectal bleeding/vomiting. No NSIADs. Denies abdo pain. I had performed push enteroscopy on 08/2023 which showed LA class D erosive esophagitis, single pigmented spot
suspicious for possible/questionable AVM s/p APC coagulation. She had been on PPI since with resolution of pyrosis. Colonoscopy was to be discussed as OP. Given the absence of overt GI bleeding, will defer endo eval. Agree with continuing PPI.
Can f/u as OP for discussion of colonoscopy. GI will s/o, call w/ questions.
Original Note:
Consultation
-
Date/Time Consultation Requested: 12/05/23 1314
Date/Time Consultation Performed: 12/06/23 1017
Requesting Provider: Dr. Dover
Performing Provider: Dr. Saxena/LUCY Murcia
Reason for Consultation: anemia
Medical History
Chief Complaint / HPI
Chief Complaint: anemia
History of Present Illness:
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
grade D esophagitis (08/23/2023), large hiatal hernia, congested duodenal mucosa, single spot duodenum (unlikely angioectasia) treated with APC and osteoarthritis who presents to the emergency room on 12/01/23 with weakness and confusion for couple
days. She was admitted for acute on chronic exacerbation of heart failure as well as pulmonary hypertension. We are asked to see her for anemia/positive occult blood in stool. We did see her back in for anemia. At that time she did
have an EGD/push enteroscopy. This will be detailed below. She was supposed to follow-up as an outpatient colonoscopy however she did have an acute hip fracture and required inpatient rehab. The patient also did see hematology at the time and was
supposed to follow-up as an outpatient because of her history of anemia, thrombocytopenia, and B12 deficiency. Currently she is here for acute exacerbation on chronic heart failure as well as pulmonary hypertension the patient did have a hemoglobin
drop from 8.5 on presentation down to 7.1 yesterday. She was transfused 1 unit of packed red blood cells and came up to 8.7. She does have a history of chronic thrombocytopenia as well. She denies any current GI complaints. In the past she had a
history of esophagitis and after being changed to Nexium she states that her symptoms completely resolved. At the present time she denies any fevers, chills, nausea, vomiting, melena, hematochezia, dysphagia or odynophagia. She denies any early
satiety. She states she is eating well. She has no further reflux symptoms. She did have an EGD with push enteroscopy performed on 08/22/2020 that showed LA grade D esophagitis. Large hiatal hernia. No gross lesions in the entire stomach.
Congested duodenal mucosa. Dilated lacteals were found in the duodenum.A single spot with no bleeding in the duodenum. Unlikely angiectasia. Treated with APC. Congested jejunal mucosa. The patient is currently on iron. Her past few bowel
movements here have been brown/green. She did have a bowel movement on 12/05/2023 that was blood-tinged. Bowel movement today was brown/green.
Past Medical History
Past Medical History: CHF, GERD, HTN, Hypercholesterolemia and Other (DJD, DVT, PE, osteoarthritis, severe pulm HTN, pulm nodule, cystocele, rectocele, right hydronephrosis, scleroderma/lupus overlap, hiatal hernia, iron deficiency, glaucoma,
cataracts, anemia, overactive bladder, sepsis from UTI (05/2023), minimal change kidney disease )
Past Surgical History: Gynecological (hysterectomy), Orthopedic (R THR, L THR) and Other (IVC filter, sacrospinous ligament fixation, anterior and posterior colporrhaphy and perineoplasty, right renal bx/left renal bx)
Social History
Tobacco: Non-Smoker
Alcohol: Occasional
Drug: None
Personal:
Living: With Family
Family History
Family History: Reviewed & Not Pertinent
Allergies / Home Medications
Allergy/AdvReac Type Severity Reaction Status Date / Time
No Known Allergies Allergy Verified 07/12/23 12:25
�Medication �Instructions �Recorded
cranberry extract 200 mg capsule 200 mg PO DAILY Supplement 09/10/22
(Ellura)
sildenafil (pulm.hypertension) 20 20 mg PO TID pulmonary hypertension 05/24/23
mg tablet
ferrous sulfate 325 mg (65 mg 325 mg PO NOON Supplement #0 tabs 08/25/23
iron) tablet (Iron (ferrous
sulfate))
atorvastatin 10 mg tablet 10 mg PO HS High cholesterol 30 09/09/23
days #30 tabs
metoprolol succinate 25 mg 12.5 mg (1/2 x 25 mg) PO BID Blood 09/09/23
tablet,extended release 24 hr pressure 30 days #30 tabs
multivitamin with folic acid 400 1 tab PO DAILY Supplement 30 days 09/09/23
mcg tablet (Tab-A-Lorna) #30 tabs
potassium chloride 20 mEq 40 meq (2 x 20 mEq) PO DAILY 09/09/23
tablet,extended release(part/cryst) supplement-hypokalemia 30 days #60
tabs
azelastine 137 mcg (0.1 %) nasal 1 spray intranasal BID Allergies 12/01/23
spray
collagenase clostridium histo. 250 1 applic topical DAILY Skin Issues 12/01/23
unit/gram topical ointment (Santyl)
cyanocobalamin (vitamin B-12) 1,000 mcg IM MONTHLY Supplement 12/01/23
1,000 mcg/mL injection solution
furosemide 40 mg tablet (Lasix) 80 mg PO BID Fluid 12/01/23
Retention/Swelling
prednisone 50 mg tablet 50 mg PO DAILY Autoimmune disorder 12/01/23
Review of Systems
-
All other systems: A 12 pt ROS was Negative except as stated above in HPI
Vital Signs
Temp Pulse Resp BP Pulse Ox
97.9 F 116 16 99/60 94
12/06/23 07:35 12/06/23 08:23 12/06/23 07:00 12/06/23 08:23 12/06/23 07:00
Physical Exam
Exam
General: No Apparent Distress
HEENT: Anicteric
Respiratory: Other (Bilateral crackle throughout)
Cardiac: Regular Rhythm
GI: Soft, Non Tender, Non Distended and Normal Bowel Sounds
Musculoskeletal: Edema
Skin: Warm and Dry
Neuro: AO x 3
Psych: Calm
Results
WBC 8.9 10^3/uL (4.8-10.8) 12/06/23 04:20
Hgb 8.7 g/dL (12.0-16.0) L D 12/06/23 04:20
Hct 25.1 % (37.0-47.0) L 12/06/23 04:20
MCV 106.4 fL (81.0-99.0) H 12/06/23 04:20
Plt Count 97 10^3/uL (130-400) L 12/06/23 04:20
Absolute Neuts (auto) 7.5 10^3/uL (1.4-6.5) H 12/06/23 04:20
Sodium 131 mmol/L (135-145) L 12/06/23 04:20
Potassium 4.5 mmol/L (3.5-5.1) 12/06/23 04:20
Chloride 88 mmol/L (98-107) L 12/06/23 04:20
Carbon Dioxide 37 mmol/L (22-30) H 12/06/23 04:20
BUN 31 mg/dl (7-17) H 12/06/23 04:20
Creatinine 0.8 mg/dL (0.6-1.0) 12/06/23 04:20
Calcium 8.9 mg/dl (8.4-10.2) 12/06/23 04:20
Total Bilirubin 1.1 mg/dl (0.2-1.3) 12/05/23 04:48
AST 20 U/L (14-36) 12/01/23 05:03
ALT 23 U/L (0-35) 12/01/23 05:03
Alkaline Phosphatase 112 U/L (38-126) 12/01/23 05:03
Diagnostic Image Results:
Prior GI Procedures:
EGD/enteroscopy 08/23/23: (Hemanth) - Dilated lacteals were found in the duodenum.
- A single spot with no bleeding in the duodenum.
Unlikely angiectasia. Treated with argon plasma
coagulation (APC).
- Congested jejunal mucosa. Biopsied.
Colonoscopy: Colonoscopy: Patient states in 2008, cannot remember the physician states it was normal.
Assessment / Plan
-
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
grade D esophagitis (08/23/2023), large hiatal hernia, congested duodenal mucosa, single spot duodenum (unlikely angioectasia) treated with APC and osteoarthritis who presents to the emergency room on 12/01/23 with weakness and confusion for couple
days. She was admitted for acute on chronic exacerbation of heart failure as well as pulmonary hypertension. We are asked to see her for anemia/positive occult blood in stool.
Impression:
Anemia
OB positive stool, no active bleeding
Acute on chronic HFpEF and pulmonary hypertension, and valvular disease
Acute hypoxic respiratory insufficiency
Elevated troponin
Thrombocytopenia
GERD
Minimal-change disease on prednisone 50 mg daily
Plan:
-Start pantoprazole 40 mg p.o. twice daily. The patient was not on PPI here.
-Trend hemoglobin
-No plans on endoscopic intervention unless with signs of active bleeding
-Plan on follow-up colonoscopy as an outpatient if medically stable
-Further recommendations to be forthcoming
-
-
Thank you for consultation and allowing me to participate in the patient's care. Please call the automation controls specialist GI physician during the after hours with any questions or concerns.
--- NOTE | 2023-12-06 10:56 | W.PN.CARDCBS ---
Today's Communication / Plan
-
Will continue IV diuresis for another 24 hours and try to wean off oxygen.
Creatinine is overall stable.
Hemoglobin improved to 8.7.
Okay to continue midodrine and metoprolol.
Continue Revatio
If cannot get off oxygen other option would be right heart catheterization in AM.
Impression / Plan
-
Primary Formulation Technician: Dr. Diann Bledsoe
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
initially presented to ED with fatigue, bilateral LE edema, SOB, confusion and weight gain.
Impression:
Presentation with weakness/fatigue
Hypotension, chronic
Hypokalemia
Resolved
Hyponatremia 129
Acute hypoxic respiratory insufficiency
Elevated troponin, suspected nonischemic myocardial injury
Pulmonary hypertension, WHO Group 1 associated with crest, on revatio
Scleroderma with lupus overlap, diagnosed 04/2023
Chronic heart failure with improved EF
Recovered nonischemic cardiomyopathy
CKD stage 3A
Minimal change disease, on prednisone
hypertension
hyperlipidemia
GERD
osteoarthritis
history of bilateral PE status post IVC filter in 2007
Chronic iron deficiency anemia/thrombocytopenia
RHC 03/2023: Severe pulmonary hypertension with minimally elevated L sided filling pressures and no significant step up on shunt run, CI 2.3, SVR 1492
Echo 12/02/2023: EF 55 to 60%, mild MR, mild to moderate AR, mild TR, PAP 45 mmHg
Echo 08/23/2023: EF 50%, mild MR, mild to moderate AR, moderate TR, PAP 45 to 50 mmHg
Plan:
Presentation with weakness/fatigue
-Most likely due to hypotension in the setting of pulmonary hypertension and acute on chronic HFpEF.
-Echo 12/01 with improved EF otherwise unchanged.
-Remains hypotensive on midodrine and metoprolol.
-Continue midodrine, and lower dose of metoprolol.
-Will continue IV Lasix for another 24 hours.
-Troponin peaked at 0.035.
-Creatinine at baseline 0.8.
-Consider right heart cath.
-Strict I's and O's with daily weights.
-Monitor blood pressure, keep MAP > 70mmHg
-Follow creatinine.
Acute hypoxic respiratory insufficiency
-Currently on 1 L O2 NC saturating at 96%, not on chronic home O2.
-Pulmonary decompensation multifactorial including fluid overload, and pulmonary disease most likely.
-Wean oxygen as tolerated.
-Aspiration precautions
-Continue prednisone.
-Incentive spirometry.
Hyponatremia
-Most likely due to volume overload from acute on chronic HFpEF
-Continue IV Lasix.
-Monitor electrolytes and replete as needed.
Elevated troponin
-Troponin peaked at 0.035
-Suspect nonischemic myocardial injury with no chest pain.
-Sinus tachycardia on review of telemetry.
-Metoprolol succinate 12.5 mg once daily.
Anemia/thrombocytopenia
-Hemoglobin improved to 8.7. Platelet count stable at 97,000.
-Monitor closely and transfuse as needed.
History of PE/IVC filter in 2007
Data:
Echo 12/02/2023:
Limited follow-up 2D echocardiogram and Doppler
Normal LV size, wall thickness and systolic function with paradoxical septal
motion
LV ejection fraction visually estimated 55 to 60%
In limited views, right ventricle appears mildly dilated with overall preserved
RV systolic function
Mitral sclerosis with mild mitral regurgitation
Aortic sclerosis with trivial aortic regurgitation
Mild tricuspid regurgitation
Estimated pulmonary artery pressure of 52 mmHg, assuming a right atrial
pressure of 3 mmHg.
No pericardial effusion
Compared to prior study dated 08/23/2023, Tricuspid regurgitation previously
moderate with estimated pulmonary artery pressures 45-50 mmHg. Aortic
regurgitation previously graded mild to moderate.
Progress Note - Formulation Technician
Subjective
Date of Service: December 06, 2023
Breathing is improving. She is diuresing some. Remains on some oxygen.
Objective
Labs:
12/06/23 04:20
12/06/23 04:20
Labs
Hgb 8.7 g/dL (12.0-16.0) L D 12/06/23 04:20
Hct 25.1 % (37.0-47.0) L 12/06/23 04:20
Plt Count 97 10^3/uL (130-400) L 12/06/23 04:20
Sodium 131 mmol/L (135-145) L 12/06/23 04:20
Potassium 4.5 mmol/L (3.5-5.1) 12/06/23 04:20
BUN 31 mg/dl (7-17) H 12/06/23 04:20
Creatinine 0.8 mg/dL (0.6-1.0) 12/06/23 04:20
Glucose 94 mg/dl (70-99) 12/06/23 04:20
Vital Signs and I&O:
Vital Signs
Temp Pulse Resp BP Pulse Ox
97.9 F 116 16 99/60 94
12/06/23 07:35 12/06/23 08:23 12/06/23 07:00 12/06/23 08:23 12/06/23 07:00
Vital Signs
Temp Pulse Resp BP Pulse Ox
97.9 F 116 16 99/60 94
12/06/23 07:35 12/06/23 08:23 12/06/23 07:00 12/06/23 08:23 12/06/23 07:00
Intake & Output
12/04/23 12/05/23 12/06/23 12/07/23
06:59 06:59 06:59 06:59
Intake Total 1210 / 1210 250 / 250
Output Total 1025 / 1025 1350 / 1350
Balance 185 / 185 -1100 / -1100
Physical Exam
Physical Exam
GEN: No distress, awake, Ox3
HEENT: supple, anicteric, mmm
LUNGS: CTA, no wheezes/rales
CV: Reg, S1/S2, 1/6 syst LSB, no gallop
ABD: soft, BS+, NT/ND
EXT: +1 edema
NEURO: Gross non-focal
SKIN: No rash
[2023-12-06] MEDS: PROTONIX 40 MG PO ×2 (12:16→19:46)
--- NOTE | 2023-12-06 13:40 | W.PN.ONC2 ---
Today's Communication / Plan
-
transfuse prn
f/u peripheral flow
f/u haptoglobin
OP follow up with Dr. Baldwin upon discharge scheduled 01/06
Impression
Impression
Acute heart failure
Severe pulmonary hypertension
Crest syndrome with scleroderma/lupus overlap
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
Chronic anemia
B12 deficiency on B12 injections
Chronic thrombocytopenia
History of bilateral pulmonary embolism with IVC filter placement in 2007
Plan
Plan
Recent and past CBCs reviewed, along with complex medical history
Anemia and thrombocytopenia are likely multifactorial, related to underlying illnesses and medications. CT ab/pelvis w IVC June 2023 showed normal liver & spleen
Macrocytosis persists despite adequate B12 repletion
Iron studies are consistent with anemia of chronic disease/inflammation. No role for iron repletion
Hemolysis panel in summer 2023 was negative with elevated haptoglobin. LDH 324 and reticulocyte count 4.6, f/u haptoglobin
follow up flow cytometry in light of elevated immature granulocytes
She has follow-up with Dr. Umair Baldwin in a few weeks. She may benefit from outpatient bone marrow biopsy if cytopenias persist without other explanation
Transfuse as clinically indicated
Subjective/Objective
Chief Complaint
no new complaints
Subjective
hypotensive, sinus tachycardia, 1L NC
Vital Signs:
Vital Signs
Temp Pulse Resp BP Pulse Ox
97.9 F 116 16 88/44 94
12/06/23 11:07 12/06/23 08:23 12/06/23 07:00 12/06/23 12:16 12/06/23 13:14
Lab Results:
Laboratory Data
WBC 8.9 10^3/uL (4.8-10.8) 12/06/23 04:20
Hgb 8.7 g/dL (12.0-16.0) L D 12/06/23 04:20
Plt Count 97 10^3/uL (130-400) L 12/06/23 04:20
eGFR > 60.00 12/06/23 04:20
Physical Exam
General: Conversant and Appears Chronically Ill
HEENT: Moist Mucous Membranes
Cardiology: Normal Sinus Rhythm
Pulmonary: Other (Decreased breath sounds throughout)
GI: Soft
Extremities: Edema; Negative Phlebitic Signs
Skin: Warm and Dry
Psych: Calm and Intact Judgement/Insight
Review of Systems
Review of Systems
ROS notable for subjective, otherwise negative
--- NOTE | 2023-12-06 17:20 | CM ---
Patient with Hx Scleroderma with lupus with Dx HF, TME, sinus tach, hyponatremia, anemia. O2 1L. Receiving IV Lasix. Janette. PT/OT; requires assist of 2, recommend skilled rehab. Per nurse assessment; confused.
Spoke with son Juan; he has still not spoken with his mother about going to SNF for rehab. He is hoping to speak with the horse show judge today and get an update on patient's status---> message to Dr Rubio.
Plan follow up with patient/son to discuss short term SNF for rehab.
--- NOTE | 2023-12-06 18:00 | PTCARENOTE ---
Patient was up in the chair most of the day, sleeping on and off. Pt able to make needs known. Pt ate well. BP soft at times but improves with Midodrine. Pt denied any pain. She remains on 1L NC. Assessment, care and VS as charted.
[2023-12-06] MEDS: COLACE 100 MG PO (19:45)
[2023-12-06] MEDS: LIPITOR 10 MG PO (19:45)
[2023-12-06 20:54] LABS: Haptoglobin 306 mg/dL (30-200)
--- NOTE | 2023-12-06 21:44 | PTCARENOTE ---
assumed care of patient, pt is AAOx3- forgetful at times but able to make needs known. uses call almaraz appropriately. VSS- on 1L NC 94%. patel intact draining cloudy urine with sediment. pt able to take meds whole with applesauce without issues. no
complaints of pain. care ongoing.
[2023-12-07] VITALS (11 sets, daily range): BP systolic 88–108; BP diastolic 52–72; PULSE 117–151; O2SAT 94; BMI 25.7
--- NOTE | 2023-12-07 06:19 | W.PN.HOSP.TC ---
Today's Communication/Plan
-
Midodrine
Lasix
BB
Assessment / Plan
Assessment / Plan
Physical exam:
General: Well Developed, Well Nourished and No Apparent Distress,
HEENT: NormoCephalic, Moist mucous membranes, Atraumatic and Oxygen
Respiratory: Decreased breath sound, oxygen
Cardiac: S1/S2 and Regular Rhythm; tachycardiac
GI: Soft, Non Tender,
Musculoskeletal: No Clubbing, No Cyanosis, Edema, Left Lower Extremity (Bruising LE noted ) and less Edema, Right Lower Extremity (Bruising LE noted ) improvement in lower extremity carol
Neuro: Awake, Alert, Oriented to surroundings, No Motor Deficits and Nonfocal/grossly intact
Psych: Calm
#Weakness/fatigue likely second acute on chronic HFpEF and pulmonary hypertension, and valvular disease
#Acute hypoxic respiratory insufficiency
#Elevated troponin suspect nonischemic myocardial injury
#Shock likely cardiogenic doubt septic
-tachycardia
Started patient on 40 mg IV Lasix twice daily
With soft blood pressure required Levophed support and off. Started on midodrine.
Monitored creatinine closely with diuretics
Daily weights. She lost weight
Wean oxygen as tolerated
Starte don low dose BB to control HR
Echo 12/02/23 EF of 55 to 60%. Normal left ventricular size thickness and systolic function. Mitral sclerosis. PASP 52 mmHg. No pericardial effusion.
Cont Sildenafil. Seems to be off Ambrisentan
Trend troponin for now. proBNP of 2700 noted elevated compared to 10/15.
Chest x-ray noted.
Agree with cardiology. Need right heart catheterization.
Cardiology correspondence noted. Pulmonary eval noted
#Toxic metabolic encephalopathy transient likely secondary to hypoxemia vs. hypotension
-Doubt infection. Afebrile.
-Monitored mentation closely. She followed commands.
-Not on any opioids or benzodiazepines. Resolved.
# Sinus tachycardia
-Toprol dose decreased 12.5 daily from BID dosing. Monitor for blood pressure.
-PRBC transfusion could help with tachycardia
#Hyponatremia likely 2/2 hypervolemia
-monitor closely with diuresis.
#Hypokalemia
-replete/monitor
#R hip pain due to chronic right periprosthetic femur fracture
-Was admitted in 09/14 and ortho recs non operative management.
-was seen by Ortho in office and recs conservative management.
-Hip xray if wtih severe pain once more hemodynamically stable
-pain control. Ice pack
#Primary HTN
-BP controlled. Cont diuretics.
##Stage III chronic kidney disease
Cr stable. Monitor closely with diuretics
#hyperlipidemia
-Cont home regimen
#Minimal-change kidney disease,
#lupus/scleroderma overlap,
-Pt on 50mg prednisone at home-continued for her autoimmune condition.
#Chronic urinary retention with chronic Savage upon admission
Has had Savage since May 2023
# Anemia of chronic disease/ heme+ve stool
Chronic blood loss anemia
DC p.o. iron. B12 folate appropriate
Oncology evaluation requested.
Hemoglobin of 7.1 with hematocrit of 20.6. s/p 1 unit of PRBC.
Per GI : Anemia/heme+ve stool - s/p enteroscopy on 08/2023 which showed LA class D erosive esophagitis, single pigmented spot suspicious for possible/questionable AVM s/p APC coagulation. Colonoscopy was to be discussed as OP. Given the absence
of overt GI bleeding, will defer endo eval. Agree with continuing PPI. Can f/u as OP for discussion of colonoscopy. GI will s/o, call w/ questions.
-Per oncology: Anemia best explained by chronic disease state (CREST/scleroderma/lupus)
#Chronic thrombocytopenia
Continue to trend platelets. No active bleeding noted.
Transfuse as needed for platelets less than 20,000
Platelets starting to improve
# History of bilateral pulmonary embolism status post IVC filter placement
DVT prophylaxis SCDs in the setting of chronic thrombocytopenia and high risk of bleeding.
Full code
PT/OT-SNF. CM Aware. Pt and family agreed.
Total time spent to see the patient on the floor, examine the patient, review data and lab results, discuss treatment plan with patient, nursing staff around [address] Dover update son Juan over the phone in details on 12/03
Total time spent to see the patient on the floor, examine the patient, review data and lab results, discuss treatment plan with patient, nursing staff around 55 minutes
Anticipated Discharge: 24 - 48 hours
Subjective/Interval History
-
Date of Service: December 07, 2023
She denies chest pain or sob
Reports feeling better
Objective Data
-
Vital Signs:
Vital Signs
Temp Pulse Resp BP Pulse Ox
97.7 F 78 19 102/59 95
12/07/23 04:04 12/07/23 06:00 12/07/23 06:00 12/07/23 06:00 12/07/23 06:00
I&O
12/05/23 12/06/23 12/07/23
06:59 06:59 06:59
Intake Total 250 / 250 480 / 480
Output Total 1350 / 1350 1300 / 1300
Balance -1100 / -1100 -820 / -820
[2023-12-07] MEDS: KCL 40 MEQ PO (08:04)
[2023-12-07] MEDS: ProAmatine 5 MG PO ×3 (08:04→17:02)
[2023-12-07] MEDS: THERAGRAN 1 TABLET PO (08:04)
[2023-12-07] MEDS: PROTONIX 40 MG PO ×2 (08:04→21:01)
[2023-12-07] MEDS: DELTASONE 50 MG PO (08:04)
[2023-12-07] MEDS: TOPROL XL 12.5 MG PO (08:05)
[2023-12-07] MEDS: REVATIO 20 MG PO ×3 (08:05→21:01)
[2023-12-07] MEDS: LASIX 40 MG IV ×2 (08:05→15:23)
[2023-12-07] MEDS: COLACE 100 MG PO (08:05)
[2023-12-07 11:16] LABS: Number Of Markers 26 markers; Source Blood
--- NOTE | 2023-12-07 11:51 | PTCARENOTE ---
Assumed care of patient this morning. She is aaox3, pleasant. Took morning medications in applesauce. She denies any pain. PT worked with patient and she is now in the chair. She has a BM that RN was not present for therefore did not hemetest per
order. Pt ate approx 50% of breakfast. She remains on 1L NC, will attempt to wean. She has a moist, nonproductive cough. Assessment, care and VS as charted.
--- NOTE | 2023-12-07 12:16 | W.PN.CARDCBS ---
Today's Communication / Plan
-
Clinically she is improving her weight is down. We discussed right heart catheterization but agreed to hold off for now.
Continue to wean oxygen.
Would recommend checking a room air ABG as she is having difficulty obtaining an oxygen saturation.
Continue IV Lasix for another 24 hours.
Cont revatio.
Impression / Plan
-
Primary Wet Process Assistant Head Miller: Dr. Diann Bledsoe
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
initially presented to ED with fatigue, bilateral LE edema, SOB, confusion and weight gain.
Impression:
Presentation with weakness/fatigue
Hypotension, chronic
Hypokalemia
Resolved
Hyponatremia 129
Acute hypoxic respiratory insufficiency
Elevated troponin, suspected nonischemic myocardial injury
Pulmonary hypertension, WHO Group 1 associated with crest, on revatio
Scleroderma with lupus overlap, diagnosed 04/2023
Chronic heart failure with improved EF
Recovered nonischemic cardiomyopathy
CKD stage 3A
Minimal change disease, on prednisone
hypertension
hyperlipidemia
GERD
osteoarthritis
history of bilateral PE status post IVC filter in 2007
Chronic iron deficiency anemia/thrombocytopenia
RHC 03/2023: Severe pulmonary hypertension with minimally elevated L sided filling pressures and no significant step up on shunt run, CI 2.3, SVR 1492
Echo 12/02/2023: EF 55 to 60%, mild MR, mild to moderate AR, mild TR, PAP 45 mmHg
Echo 08/23/2023: EF 50%, mild MR, mild to moderate AR, moderate TR, PAP 45 to 50 mmHg
Plan:
Presentation with weakness/fatigue
-Most likely due to hypotension in the setting of pulmonary hypertension and acute on chronic HFpEF.
-Echo 12/01 with improved EF otherwise unchanged.
-Remains hypotensive on midodrine and metoprolol.
-Continue midodrine, and lower dose of metoprolol.
-She has diuresed relatively well. Will check ABG off oxygen to assess oxygen status.
-We discussed consideration for a right heart catheterization but agreed to hold off for now.
-Strict I's and O's with daily weights.
-Monitor blood pressure, keep MAP > 70mmHg
-Creat normal
Acute hypoxic respiratory insufficiency
-Currently on 1 L O2 NC saturating at 96%, not on chronic home O2.
-Pulmonary decompensation multifactorial including fluid overload, and pulmonary disease most likely.
-Wean oxygen as tolerated. Will check room air ABG.
-Aspiration precautions
-Continue prednisone.
-Incentive spirometry.
Hyponatremia
-Most likely due to volume overload from acute on chronic HFpEF
-Continue IV Lasix. Na improved to 131
-Monitor electrolytes and replete as needed.
Elevated troponin
-Troponin peaked at 0.035
-Suspect nonischemic myocardial injury with no chest pain.
-Sinus tachycardia on review of telemetry.
-Metoprolol succinate 12.5 mg once daily.
Anemia/thrombocytopenia
-Hemoglobin improved to 8.7. Platelet count stable at 97,000.
-Monitor closely and transfuse as needed.
History of PE/IVC filter in 2007
Data:
Echo 12/02/2023:
Limited follow-up 2D echocardiogram and Doppler
Normal LV size, wall thickness and systolic function with paradoxical septal
motion
LV ejection fraction visually estimated 55 to 60%
In limited views, right ventricle appears mildly dilated with overall preserved
RV systolic function
Mitral sclerosis with mild mitral regurgitation
Aortic sclerosis with trivial aortic regurgitation
Mild tricuspid regurgitation
Estimated pulmonary artery pressure of 52 mmHg, assuming a right atrial
pressure of 3 mmHg.
No pericardial effusion
Compared to prior study dated 08/23/2023, Tricuspid regurgitation previously
moderate with estimated pulmonary artery pressures 45-50 mmHg. Aortic
regurgitation previously graded mild to moderate.
Progress Note - Wet Process Assistant Head Miller
Subjective
Date of Service: December 07, 2023
Feels a little better. Breathing is improved.
Objective
Labs:
12/06/23 04:20
12/06/23 04:20
Labs
Hgb 8.7 g/dL (12.0-16.0) L D 12/06/23 04:20
Hct 25.1 % (37.0-47.0) L 12/06/23 04:20
Plt Count 97 10^3/uL (130-400) L 12/06/23 04:20
Sodium 131 mmol/L (135-145) L 12/06/23 04:20
Potassium 4.5 mmol/L (3.5-5.1) 12/06/23 04:20
BUN 31 mg/dl (7-17) H 12/06/23 04:20
Creatinine 0.8 mg/dL (0.6-1.0) 12/06/23 04:20
Glucose 94 mg/dl (70-99) 12/06/23 04:20
Vital Signs and I&O:
Vital Signs
Temp Pulse Resp BP Pulse Ox
97.7 F 111 22 88/66 95
12/07/23 07:57 12/07/23 11:00 12/07/23 11:00 12/07/23 10:00 12/07/23 10:00
Vital Signs
Temp Pulse Resp BP Pulse Ox
97.7 F 111 22 88/66 95
12/07/23 07:57 12/07/23 11:00 12/07/23 11:00 12/07/23 10:00 12/07/23 10:00
Intake & Output
12/05/23 12/06/23 12/07/23 12/08/23
06:59 06:59 06:59 06:59
Intake Total 250 / 250 480 / 480 240 / 240
Output Total 1350 / 1350 1300 / 1300
Balance -1100 / -1100 -820 / -820 240 / 240
Physical Exam
Physical Exam
GEN: No distress, awake, Ox3
HEENT: supple, anicteric, mmm
LUNGS: scatt rhonchi
CV: Reg, S1/S2, 1/6 syst LSB, no gallop
ABD: soft, BS+, NT/ND
EXT: No edema
NEURO: Gross non-focal
SKIN: No rash
[2023-12-07 12:57] LABS: B.E. 9.6 mmol/L; HCO3 34.8 mmol/L (21-28); O2 Saturation % 77.8 % (94-98); PCO2 50 mmHg (32-35); pH 7.45 (7.35-7.45)
[2023-12-07 13:00] LABS: PO2 47 mmHg (83-108)
[2023-12-07] MEDS: COLACE PO (21:01)
[2023-12-07] MEDS: LIPITOR 10 MG PO (21:01)
[2023-12-08] VITALS (7 sets, daily range): BP systolic 101–113; BP diastolic 62–67; PULSE 107; O2SAT 91; BMI 26.0
--- NOTE | 2023-12-08 04:12 | DOWNTIME ---
There was a [employer] Downtime on 12/08/2023 from 0100 to 12/08/2023 at 0355. Downtime documentation of patient's care, including medication administrations, has been reconciled in the electronic record per guidelines. Refer to the
patient's paper chart under the miscellaneous tab to see printed paper medication records and downtime forms.
[2023-12-08 07:29] LABS: Blood Urea Nitrogen 29 mg/dl (7-17); Calcium 9.2 mg/dl (8.4-10.2); Carbon Dioxide 34 mmol/L (22-30); Chloride 90 mmol/L (98-107); Estimated Creatinine Clearance 43 ml/min; Glucose 96 mg/dl (70-99); Potassium 4.1 mmol/L (3.5-5.1); Sodium 132 mmol/L (135-145); eGFR > 60.00
[2023-12-08] MEDS: KCL 40 MEQ PO (08:27)
[2023-12-08] MEDS: LASIX 40 MG IV (08:27)
[2023-12-08] MEDS: COLACE PO ×2 (08:27→20:07)
[2023-12-08] MEDS: PROTONIX 40 MG PO ×2 (08:27→20:07)
[2023-12-08] MEDS: DELTASONE 50 MG PO (08:27)
[2023-12-08] MEDS: ProAmatine 5 MG PO ×3 (08:27→18:23)
[2023-12-08] MEDS: REVATIO 20 MG PO ×3 (08:28→21:46)
[2023-12-08] MEDS: TOPROL XL 12.5 MG PO (08:28)
[2023-12-08] MEDS: THERAGRAN 1 TABLET PO (08:28)
--- NOTE | 2023-12-08 10:40 | W.PN.CARDCBS ---
Addendum entered and electronically signed by Jonathan Obrien MD 12/08/23 12:50:
I saw and examined the patient.
The Freight Rate Specialist's note was reviewed and I agree with the note.
Comment: Briefly, 73-year-old woman past medical history of heart failure with recovered ejection fraction, pulm hypertension (WHO group 1) and CKD who presents with fatigue and weakness found to be in decompensated heart failure
Management of heart failure has been challenging due to the need for steroid therapy with history of scleroderma/lupus
Volume status is reasonable today following IV diuresis
Plan to transition to oral Lasix 80 mg twice a day with metolazone 2.5 mg once weekly
Stable for discharge from my perspective, we will sign off, please recall as needed
Outpatient cardiology follow-up to be arranged
Addendum entered and electronically signed by Lara Morton PA-C 12/08/23 11:40:
correction to below: patient on LASIX 80mg BID prior to admission. currently on IV lasix 40mg BID. would consider increasing dose to 120mg po BID for DC vs continuing 80mg BID with once weekly zaroxolyn.
Original Note:
Today's Communication / Plan
-
transition to po bumex
PT
eval for home O2
will arrange OP cardiac follow up
Impression / Plan
-
Primary Artificial Marble Worker: Dr. Diann Bledsoe
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
initially presented to ED with fatigue, bilateral LE edema, SOB, confusion and weight gain.
Impression:
Presentation with weakness/fatigue
Hypotension, chronic
Hypokalemia
Resolved
Hyponatremia 129
Acute hypoxic respiratory insufficiency
Elevated troponin, suspected nonischemic myocardial injury
Pulmonary hypertension, WHO Group 1 associated with crest, on revatio
Scleroderma with lupus overlap, diagnosed 04/2023
Chronic heart failure with improved EF
Recovered nonischemic cardiomyopathy
CKD stage 3A
Minimal change disease, on prednisone
hypertension
hyperlipidemia
GERD
osteoarthritis
history of bilateral PE status post IVC filter in 2007
Chronic iron deficiency anemia/thrombocytopenia
RHC 03/2023: Severe pulmonary hypertension with minimally elevated L sided filling pressures and no significant step up on shunt run, CI 2.3, SVR 1492
Echo 08/23/2023: EF 50%, mild MR, mild to moderate AR, moderate TR, PAP 45 to 50 mmHg
Echo 12/02/2023: EF 55 to 60%, mild MR, mild to moderate AR, mild TR, PAP 45 mmHg
Plan:
-reports significant improvement in breathing from admission and states LE are much less swollen
-will plan to transition to po bumex - was on po bumex 2mg daily prior to admission, currently on IV bumex 2mg BID
-off supp O2. eval for home O2
-continue midodrine for chronic hypotension
-in ST on review of tele on toprol 12.5mg daily.
-Echo 12/01 with improved EF otherwise unchanged.
-trop peaked at 0.035, suspected nonischemic myocardial injury. no CP
-follow hgb, anemia felt to be due to chronic disease
-will arrange OP cardiac follow up
-PT evaluation
-d/w nursing
Progress Note - Artificial Marble Worker
Subjective
Date of Service: December 08, 2023
reports feeling much improved
Objective
Labs:
12/06/23 04:20
12/08/23 06:42
Labs
Hgb 8.7 g/dL (12.0-16.0) L D 12/06/23 04:20
Hct 25.1 % (37.0-47.0) L 12/06/23 04:20
Plt Count 97 10^3/uL (130-400) L 12/06/23 04:20
Sodium 132 mmol/L (135-145) L 12/08/23 06:42
Potassium 4.1 mmol/L (3.5-5.1) 12/08/23 06:42
BUN 29 mg/dl (7-17) H 12/08/23 06:42
Creatinine 1.0 mg/dL (0.6-1.0) 12/08/23 06:42
Glucose 96 mg/dl (70-99) 12/08/23 06:42
Vital Signs and I&O:
Vital Signs
Temp Pulse Resp BP Pulse Ox
98.0 F 104 16 102/67 92
12/08/23 08:24 12/08/23 08:24 12/08/23 08:24 12/08/23 08:24 12/08/23 08:24
Vital Signs
Temp Pulse Resp BP Pulse Ox
98.0 F 104 16 102/67 92
12/08/23 08:24 12/08/23 08:24 12/08/23 08:24 12/08/23 08:24 12/08/23 08:24
Intake & Output
12/06/23 12/07/23 12/08/23 12/09/23
07:59 07:59 07:59 07:59
Intake Total 250 / 250 480 / 480 640 / 640
Output Total 1350 / 1350 1300 / 1300 1450 / 1450
Balance -1100 / -1100 -820 / -820 -810 / -810
Physical Exam
Physical Exam
GEN: No distress, awake, alert, oriented x3
HEENT: supple, anicteric, mmm, eomi
LUNGS: Few crackles B/L, no wheezes
CV: Reg and tachy, S1/S2, no murmur
ABD: soft, BS+, NT/ND
EXT: No cyanosis, clubbing. trace edema of B/L LE
NEURO: Gross non-focal
SKIN: Warm, pink, dry. No rash
--- NOTE | 2023-12-08 11:57 | W.PN.HOSP.TC ---
Today's Communication/Plan
-
dc in am
Assessment / Plan
Assessment / Plan
Physical exam:
General: Well Developed, Well Nourished and No Apparent Distress,
HEENT: NormoCephalic, Moist mucous membranes, Atraumatic and off Oxygen
Respiratory: Decreased breath sound, rales.
Cardiac: S1/S2 and Regular Rhythm; tachycardiac
GI: Soft, Non Tender,
Musculoskeletal: No Clubbing, No Cyanosis, Edema, Left Lower Extremity (Bruising LE noted ) and less Edema, Right Lower Extremity (Bruising LE noted ) improvement in lower extremity carol
Neuro: Awake, Alert, Oriented to surroundings, No Motor Deficits and Nonfocal/grossly intact
Psych: Calm
#Weakness/fatigue likely second acute on chronic HFpEF and pulmonary hypertension, and valvular disease
#Acute hypoxic respiratory insufficiency
#Elevated troponin suspect nonischemic myocardial injury
#Shock likely cardiogenic doubt septic
-tachycardia
Started patient on 40 mg IV Lasix twice daily
With soft blood pressure required Levophed support and off. Started on midodrine.
Monitored creatinine closely with diuretics
Daily weights. She lost weight
Wean oxygen as tolerated
Started on low dose BB to control HR
Echo 12/02/23 EF of 55 to 60%. Normal left ventricular size thickness and systolic function. Mitral sclerosis. PASP 52 mmHg. No pericardial effusion.
Cont Sildenafil. Seems to be off Ambrisentan
Trend troponin for now. proBNP of 2700 noted elevated compared to 10/15.
Chest x-ray noted.
Agree with cardiology. no Need for right heart catheterization.
Cardiology correspondence noted. Pulmonary eval noted
#Toxic metabolic encephalopathy transient likely secondary to hypoxemia vs. hypotension
-Doubt infection. Afebrile.
-Monitored mentation closely. She followed commands.
-Not on any opioids or benzodiazepines. Resolved.
# Sinus tachycardia
-Toprol dose decreased 12.5 daily from BID dosing. Monitor for blood pressure.
-PRBC transfusion could help with tachycardia
#Hyponatremia likely 2/2 hypervolemia
-monitor closely with diuresis.
#Hypokalemia
-replete/monitor
#R hip pain due to chronic right periprosthetic femur fracture
-Was admitted in 09/14 and ortho recs non operative management.
-was seen by Ortho in office and recs conservative management.
-pain control. Ice pack
#Primary HTN
-BP controlled. Cont diuretics.
##Stage III chronic kidney disease
Cr stable. Monitor closely with diuretics
#hyperlipidemia
-Cont home regimen
#Minimal-change kidney disease,
#lupus/scleroderma overlap,
-Pt on 50mg prednisone at home-continued for her autoimmune condition.
#Chronic urinary retention with chronic Savage upon admission
Has had Savage since May 2023
# Anemia of chronic disease/ heme+ve stool
Chronic blood loss anemia
DC p.o. iron. B12 folate appropriate
Oncology evaluation requested.
Hemoglobin of 7.1 with hematocrit of 20.6. s/p 1 unit of PRBC.
Per GI : Anemia/heme+ve stool - s/p enteroscopy on 08/2023 which showed LA class D erosive esophagitis, single pigmented spot suspicious for possible/questionable AVM s/p APC coagulation. Colonoscopy was to be discussed as OP. Given the absence
of overt GI bleeding, will defer endo eval. Agree with continuing PPI. Can f/u as OP for discussion of colonoscopy. GI will s/o, call w/ questions.
-Per oncology: Anemia best explained by chronic disease state (CREST/scleroderma/lupus)
#Chronic thrombocytopenia
Continue to trend platelets. No active bleeding noted.
Transfuse as needed for platelets less than 20,000
Platelets starting to improve
# History of bilateral pulmonary embolism status post IVC filter placement
DVT prophylaxis SCDs in the setting of chronic thrombocytopenia and high risk of bleeding.
Full code
PT/OT-SNF. CM Aware. Pt and family agreed.
Total time spent to see the patient on the floor, examine the patient, review data and lab results, discuss treatment plan with patient, nursing staff around [address] Dover update son Juan over the phone in details on 12/03
Total time spent to see the patient on the floor, examine the patient, review data and lab results, discuss treatment plan with patient, nursing staff around 55 minutes
Anticipated Discharge: Within 24 hours
Subjective/Interval History
-
Date of Service: December 08, 2023
She denies chest pain or sob
Reports feeling better
Objective Data
-
Labs:
Laboratory Results
12/08/23
06:42
Sodium 132 L
Potassium 4.1
Chloride 90 L
Carbon Dioxide 34 H
BUN 29 H
Creatinine 1.0
Glucose 96
Calcium 9.2
Vital Signs:
Vital Signs
Temp Pulse Resp BP Pulse Ox
98.0 F 104 16 102/67 92
12/08/23 08:24 12/08/23 08:24 12/08/23 08:24 12/08/23 08:24 12/08/23 08:24
I&O
12/07/23 12/08/23 12/09/23
06:59 06:59 06:59
Intake Total 480 / 480 640 / 640
Output Total 1300 / 1300 1450 / 1450
Balance -820 / -820 -810 / -810
[2023-12-08] MEDS: LASIX 80 MG PO (16:33)
[2023-12-08] MEDS: LIPITOR 10 MG PO (21:46)
[2023-12-09 03:17] VITALS: BP 99/61
[2023-12-09 06:00] VITALS: BMI 25.6
[2023-12-09 07:33] VITALS: BP 105/58
[2023-12-09] MEDS: LASIX 80 MG PO ×2 (08:21→15:12)
[2023-12-09] MEDS: PROTONIX 40 MG PO (08:21)
[2023-12-09] MEDS: TOPROL XL 12.5 MG PO (08:21)
[2023-12-09] MEDS: DELTASONE 50 MG PO (08:21)
[2023-12-09] MEDS: KCL 40 MEQ PO (08:22)
[2023-12-09] MEDS: ProAmatine 5 MG PO ×3 (08:22→17:28)
[2023-12-09] MEDS: REVATIO 20 MG PO ×2 (08:22→15:12)
[2023-12-09] MEDS: THERAGRAN 1 TABLET PO (08:22)
[2023-12-09] MEDS: COLACE 100 MG PO (08:22)
--- NOTE | 2023-12-09 08:37 | W.PN.ONC2 ---
Today's Communication / Plan
-
daily cbc
OP follow up with Dr. Baldwin scheduled
d/c planning
Impression
Impression
Acute heart failure
Severe pulmonary hypertension
Crest syndrome with scleroderma/lupus overlap
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
Chronic anemia, iron studies c/w AOCD so no role for iron repletions, no evidence of hemolysis, Macrocytosis persists despite adequate B12 repletion
B12 deficiency on B12 injections
Chronic thrombocytopenia
elevated immature granulocytes -flow shows predominance of granulocytes without immunophenotypic aberrancy
History of bilateral pulmonary embolism with IVC filter placement in 2007
Plan
Plan
Anemia and thrombocytopenia are likely multifactorial, related to underlying illnesses and medications. CT ab/pelvis w IVC June 2023 showed normal liver & spleen
She has follow-up with Dr. Umair Baldwin in a few weeks. She may benefit from outpatient bone marrow biopsy if cytopenias persist without other explanation
Transfuse as clinically indicated
Subjective/Objective
Chief Complaint
no new complaints
Subjective
platelets improved to 90k
Vital Signs:
Vital Signs
Temp Pulse Resp BP Pulse Ox
97.6 F 105 16 105/58 92
12/09/23 07:33 12/09/23 08:21 12/09/23 07:33 12/09/23 08:21 12/09/23 07:33
Lab Results:
Laboratory Data
WBC 8.9 10^3/uL (4.8-10.8) 12/06/23 04:20
Hgb 8.7 g/dL (12.0-16.0) L D 12/06/23 04:20
Plt Count 97 10^3/uL (130-400) L 12/06/23 04:20
eGFR > 60.00 12/08/23 06:42
--- NOTE | 2023-12-09 08:51 | W.PN.HOSP.TC ---
Today's Communication/Plan
-
Likely discharge today if bed available
Assessment / Plan
Assessment / Plan
Physical exam:
General: Well Developed, Well Nourished and No Apparent Distress,
HEENT: NormoCephalic, Moist mucous membranes, Atraumatic and off Oxygen
Respiratory: Decreased breath sound, rales.
Cardiac: S1/S2 and Regular Rhythm; tachycardiac
GI: Soft, Non Tender,
Musculoskeletal: No Clubbing, No Cyanosis, Edema, Left Lower Extremity (Bruising LE noted ) and less Edema, Right Lower Extremity (Bruising LE noted ) improvement in lower extremity carol
Neuro: Awake, Alert, Oriented to surroundings, No Motor Deficits and Nonfocal/grossly intact
Psych: Calm
#Weakness/fatigue likely second acute on chronic HFpEF and pulmonary hypertension, and valvular disease
#Acute hypoxic respiratory insufficiency
#Elevated troponin suspect nonischemic myocardial injury, #Shock likely cardiogenic doubt septic, -tachycardia
Resolved.
With soft blood pressure required Levophed support and off. Started on midodrine.
Monitored creatinine closely with diuretics
Daily weights. She lost weight
Wean oxygen as tolerated
Started on low dose BB to control HR
Echo 12/02/23 EF of 55 to 60%. Normal left ventricular size thickness and systolic function. Mitral sclerosis. PASP 52 mmHg. No pericardial effusion.
Cont Sildenafil. Seems to be off Ambrisentan. proBNP of 2700 noted elevated compared to 10/15.
Chest x-ray noted.
Agree with cardiology. no Need for right heart catheterization.
Cardiology correspondence noted. Pulmonary eval noted, now on Lasix 80 mg bID, metolazone 2.5 mg once a week.
#Toxic metabolic encephalopathy transient likely secondary to hypoxemia vs. hypotension
-Doubt infection. Afebrile.
-Monitored mentation closely. She followed commands, back to baseline.
-Not on any opioids or benzodiazepines. Resolved.
# Sinus tachycardia, resolved.
-Toprol dose decreased 12.5 daily from BID dosing.
#Hyponatremia likely 2/2 hypervolemia
-monitored closely with diuresis.
#Hypokalemia
-replete/monitor
#R hip pain due to chronic right periprosthetic femur fracture
-Was admitted in 09/14 and ortho recs non operative management.
-was seen by Ortho in office and recs conservative management.
-pain control. Ice pack
#Primary HTN
-BP controlled. Cont diuretics.
##Stage III chronic kidney disease
Cr stable. Monitor closely with diuretics
#hyperlipidemia
-Cont home regimen
#Minimal-change kidney disease,
#lupus/scleroderma overlap,
-Pt on 50mg prednisone at home-continued for her autoimmune condition.
#Chronic urinary retention with chronic Savage upon admission
Has had Savage since May 2023
# Anemia of chronic disease/ heme+ve stool
Chronic blood loss anemia
DC p.o. iron. B12 folate appropriate
Oncology evaluation requested.
Hemoglobin of 7.1 with hematocrit of 20.6. s/p 1 unit of PRBC.
Per GI : Anemia/heme+ve stool - s/p enteroscopy on 08/2023 which showed LA class D erosive esophagitis, single pigmented spot suspicious for possible/questionable AVM s/p APC coagulation. Colonoscopy was to be discussed as OP. Given the absence
of overt GI bleeding, will defer endo eval. Agree with continuing PPI. Can f/u as OP for discussion of colonoscopy. GI will s/o, call w/ questions.
-Per oncology: Anemia best explained by chronic disease state (CREST/scleroderma/lupus)
#Chronic thrombocytopenia
Continue to trend platelets. No active bleeding noted.
Transfuse as needed for platelets less than 20,000
Platelets starting to improve
# History of bilateral pulmonary embolism status post IVC filter placement
DVT prophylaxis SCDs in the setting of chronic thrombocytopenia and high risk of bleeding.
Full code
PT/OT-SNF. CM Aware. Pt and family agreed.
Total dc time spent to see the patient on the floor, examine the patient, review data and lab results, discuss discharge/ treatment plan with patient, transplant case manager, nursing staff around 67 minutes
Anticipated Discharge: Today
Subjective/Interval History
-
Date of Service: December 09, 2023
She feels better, feels ready to go to rehab
Objective Data
-
Vital Signs:
Vital Signs
Temp Pulse Resp BP Pulse Ox
97.6 F 105 16 105/58 92
12/09/23 07:33 12/09/23 08:21 12/09/23 07:33 12/09/23 08:21 12/09/23 07:33
I&O
12/08/23 12/09/23 12/10/23
06:59 06:59 06:59
Intake Total 640 / 640 1190 / 1190
Output Total 1450 / 1450 2300 / 2300
Balance -810 / -810 -1110 / -1110
--- NOTE | 2023-12-09 10:28 | CM ---
Addendum entered by ANITA Singh 12/09/23 13:34:
Received return call from Yulisa in admissions at [facility] who confirmed ability to take patient today. She stated that patient would have to come after 16:00 due to the timing of having her room cleaned.
# For report [phone] and fax# [phone]
Medical necessity and transfer sheet completed.
Will review IMM with patient.
Asked attending for Covid test.
[facility] director of community center working on facilitating transport.
Son updated and provided with CM contact information for any questions he may have.
Addendum entered by ANITA Singh 12/09/23 11:58:
Received return call from Yulisa in admissions at [facility] who stated that she most likely has a bed today and will return call with definite acceptance (hopeful) soon.
Original Note:
Reviewed chart, spoke with attending, patient stable for discharge. Spoke with patient's son who stated that he would like referrals sent to the following: [facility] Pat[facility] and [facility]. Referrals sent. Will await
determination. No auth needed for transfer, therefore patient can be discharged as soon as bed is located. Patient's son was advised that as patient is discharged today, she may have to transfer to a facility with an available bed and then their
staff can work on transitioning her to one of his top three choices. He expressed that he understood.
Plan: Case management will continue to follow and assist with discharge planning. SNF.
[2023-12-09 11:18] VITALS: BP 105/69
[2023-12-09] MEDS: FLUAD (65 yr+) 2024-2025 FORMULA 0.5 ML IM (13:48)
[2023-12-09 14:56] LABS: COVID-19 Antigen Negative (Negative)
[2023-12-09 15:42] VITALS: BP 122/78
--- NOTE | 2023-12-09 19:31 | PTCARENOTE ---
Addendum entered by Inna Mix RN 12/09/23 19:38:
Discharged packet and report to [facility] given via dayshift RN.
Original Note:
Received report from dayshift RN - patient being discharged to [facility]. Acute Care arrived with stretcher to transport patient. Patient discharged at 1935.
--- NOTE | 2023-12-10 09:19 | W.HF.CON ---
Heart Failure
- LV Function
Left ventricular function study result: LV Ejection fraction >40%
Ejection Fraction Percentage: 55-60
- ARNI
Patient already on ARNI: No
Heart Failure ARNI Not Indicated: LV Ejection Fraction >/= 40%
- ACEI/ARB
Patient already on ACEI/ARB: No
Heart Failure ACEI/ARB Not Indicated: LV Ejection Fraction > 40%
- Beta Isabel
Patient already on Evidence Based Beta Isabel: Yes
- Mineralocorticord Receptor Antagonist
Patient already on MRA: No
Heart Failure MRA Not Indicated: LV Ejection Fraction > 40%
- SGLT-2 Inhibitor
Patient already on SGLT-2 Inhibitor: No
Heart Failure SGLT-2 Inhibitor Not Indicated: LV Ejection Fraction >40%
- NYHA CHF Classification
NYHA CHF Classification Level: Class III - Symptoms w/ min exertion, interferes w/ nml daily activity
- ACC/AHA Stage
ACC/AHA Stage: Stage C: Symptomatic Heart Failure
--- NOTE | 2023-12-10 15:34 | W.DCSUMMARY ---
Discharge Summary
Discharge Data
Date of Admission: 12/01/23
Date of Discharge: 12/09/23
-
Pending Results: No
Hospital Course
73 years old female presented with confusion and weakness. Patient was diagnosed with toxic metabolic encephalopathy secondary to hypoxemia and hypotension. Patient was admitted to the hospital. Patient had history of severe pulmonary
hypertension. She was evaluated by distiller. She was started on empiric antibiotic but no infection source was found. Her mentation improved significantly. She did not have fevers. Echocardiogram showed normal left ventricular size
thickness and function with mitral sclerosis and pulmonary artery pressure of 52 mmHg with no pericardial effusion. She was maintained on her usual medications. She did have weight gain. She was started on course of intravenous diuretics. She
subsequently was maintained on Lasix and added metolazone. She remained hemodynamically stable. She was evaluated by physical therapy recommended senior living facility. Patient was able to tolerate diet. She did not need home oxygen upon
discharge. She was discharged to senior living facility in a stable condition.
Discharge Plan
-
Patient Disposition: Long-Term/SNF
Discharge Diagnosis/Procedures: Acute on chronic HFpEF, severe pulmonary hypertension, and valvular disease
Toxic metabolic encephalopathy transient likely secondary to hypoxemia vs. hypotension
Crest syndrome with scleroderma/lupus overlap
Hyperlipidemia
Stage IIIb chronic kidney disease
Anemia of chronic disease
Chronic urinary retention with a chronic Savage
Chronic thrombocytopenia
History of bilateral pulmonary embolism status post IVC filter
Hyponatremia/hypokalemia
Primary hypertension
- Echo 12/02/2023: EF 55 to 60%, mild MR, mild to moderate AR, mild TR, PAP 45 mmHg.
Diet: 2 Gram Sodium and Restrict fluids to 48 oz
Activity: As tolerated
Driving Restrictions: As prior to admission
Bathing Restrictions: None
Blood Work: BMP in 1 week
Other Services: VN
Specialty Instructions: Weigh Daily- Call MD for wt gain/loss 3 lbs overnight/5 lbs in 1 week
Instructions: *[facility] Heart Failure Instructions
Referrals:
Nataliia Mobley PA-C [Family Provider] -
Candelaria Parish DO [Active] - in two to four weeks (Full PFTs and 6-minute walk test)
Tay Baldwin DO [Active] - in two to four weeks
Diann Bledsoe MD [Active] - 01/26/24 12:40 pm (You have an appointment at the [facility] office. Please call with questions. )
Navya Klein PA-C [Specified Professional Personl] - 12/16/23 2:20 pm (You have a cardiology follow-up appointment at the [facility] office with Dr. Tidwell's physician assistant banquet manager, Navya. Please call with questions)
Prescriptions:
New
metolazone 2.5 mg Tablet
2.5 mg PO TU Qty: 10 0RF
acetaminophen 325 mg Tablet
650 mg PO Q6HPRN PRN (Reason: mild pain/ fever>100.5F) Qty: 10 0RF
midodrine 5 mg Tablet
5 mg PO TID@0800,1300,1800 Qty: 90 0RF
pantoprazole 40 mg Tablet,Delayed Release (Dr/Ec)
40 mg PO BID Qty: 60 0RF
metoprolol succinate 25 mg Tablet Extended Release 24 Hr
12.5 mg PO DAILY Qty: 30 0RF
Continued
sildenafil (pulm.hypertension) 20 mg Tablet
20 mg PO TID
furosemide [Lasix] 40 mg Tablet
80 mg PO BID
Patient Comments:
dose increased 11/26/23
Santyl 250 unit/gram Ointment
1 applic TOPICAL DAILY
azelastine 137 mcg (0.1 %) [place] [facility],Non-Aerosol
1 spray INTRANASAL BID
prednisone 50 mg tablet
50 mg PO DAILY
potassium chloride 20 mEq Tablet,Er Particles/Crystals
40 meq PO DAILY 30 Days Qty: 60 0RF
atorvastatin 10 mg Tablet
10 mg PO HS 30 Days Qty: 30 0RF
multivitamin with folic acid [Tab-A-Lorna] 400 mcg Tablet
1 tab PO DAILY 30 Days Qty: 30 0RF
Discontinued
cranberry extract [Ellura] 200 mg Capsule
200 mg PO DAILY
ferrous sulfate [Iron (ferrous sulfate)] 325 mg (65 mg iron) Tablet
325 mg PO NOON Qty: 0 0RF
cyanocobalamin (vitamin B-12) 1,000 mcg/mL solution
1,000 mcg IM MONTHLY
metoprolol succinate 25 mg Tablet Extended Release 24 Hr
12.5 mg PO BID 30 Days Qty: 30 0RF
Discharge Orders:
Discharge Patient (As Directed); Ordered 12/09/23
Ordered By: Rock Cooper
Discharge Date and Time
Discharge Date/Time: 12/09/23 19:34
Print Language: MONGOLIAN
== END 2023-12-09 19:34 | DRG 291 ==
LOC: 3 WEST ACU 11:02
PROVIDERS: ADMITTING PHYSICIAN Hospitalist; ATTENDING PHYSICIAN Internal Medicine; CONSULT PHYSICIAN Internal Medicine Cardiovascular Disease; CONSULT PHYSICIAN Internal Medicine Critical Care Medicine; CONSULT PHYSICIAN Internal Medicine Gastroenterology; CONSULT PHYSICIAN Internal Medicine Hematology & Oncology; EMERGENCY PHYSICIAN Student in an Organized Health Care Education/Training Program; FAMILY PHYSICIAN Physician Assistant
PROC: 30233N1 Transfusion of Nonautologous Red Blood Cells into Peripheral Vein, Percutaneous Approach (ICD-10-PCS; 2023-12-05)
DX: I13.0 Hypertensive heart and chronic kidney disease with heart failure and stage 1 through stage 4 chronic kidney disease, or unspecified chronic kidney disease (principal); G92.8 Other toxic encephalopathy; I50.33 Acute on chronic diastolic (congestive) heart failure; R57.0 Cardiogenic shock; E87.1 Hypo-osmolality and hyponatremia; K22.10 Ulcer of esophagus without bleeding; D69.6 Thrombocytopenia, unspecified; I27.21 Secondary pulmonary arterial hypertension; D63.1 Anemia in chronic kidney disease; M34.1 CR(E)ST syndrome; D50.9 Iron deficiency anemia, unspecified; I08.3 Combined rheumatic disorders of mitral, aortic and tricuspid valves; N18.31 Chronic kidney disease, stage 3a; I5A Non-ischemic myocardial injury (non-traumatic); I95.89 Other hypotension; E53.8 Deficiency of other specified B group vitamins; E78.00 Pure hypercholesterolemia, unspecified; E87.6 Hypokalemia; H40.9 Unspecified glaucoma; I42.8 Other cardiomyopathies; K21.00 Gastro-esophageal reflux disease with esophagitis, without bleeding; K44.9 Diaphragmatic hernia without obstruction or gangrene; M19.90 Unspecified osteoarthritis, unspecified site; N32.81 Overactive bladder; E80.7 Disorder of bilirubin metabolism, unspecified; R73.9 Hyperglycemia, unspecified; R09.02 Hypoxemia; R06.89 Other abnormalities of breathing; R19.5 Other fecal abnormalities; R33.8 Other retention of urine; Z96.0 Presence of urogenital implants; Z79.52 Long term (current) use of systemic steroids; Z79.899 Other long term (current) drug therapy; Z86.19 Personal history of other infectious and parasitic diseases; Z87.440 Personal history of urinary (tract) infections; Z86.711 Personal history of pulmonary embolism; Z90.710 Acquired absence of both cervix and uterus; Z96.643 Presence of artificial hip joint, bilateral; Z82.49 Family history of ischemic heart disease and other diseases of the circulatory system
CPT/HCPCS: 93308; 36600; 71046; 80048; 80053; 81003; 81015; 82247; 82248; 82607; 82728; 82746; 82805; 83010; 83540; 83550; 83615; 83735; 83880; 84484; 85025; 85045; 86850; 86880; 86900; 86901; 86920; 87086; 87811; 90662; 92526; 92610; 93005; 96365; 96366; 96375; 97116; 97163; 97167; 97530; 97535; 99285; G0008; P9016

== ENCOUNTER 2024-01-04 15:43 | Inpatient (IN) | payer MEDICARE, OTHER, SELFPAY ==
[2024-01-04] VITALS (79 sets, daily range): BP systolic 71–136; BP diastolic 44–123; BMI 26.6
--- NOTE | 2024-01-04 13:42 | ED.GENMED ---
History of Present Illness
<Wild Blackmon PA-C - Last Filed: 01/04/24 17:48>
General
Chief Complaint: Weakness
Source: patient
Time Seen by Provider: 01/04/24 13:30
History of Present Illness
History of Present Illness:
73-year-old female with past medical history of pulmonary embolism, CHF, hypertension, hyperlipidemia, chronic indwelling Patel catheter presenting to the ER from [facility] via EMS for evaluation of a possible new onset seizure (patient and EMS
unable to state what exactly happened that led the facility to believe patient had a seizure although there was no noted postictal state) however patient does note over the last 4 days she has been experiencing increased weakness, limited p.o.
intake to both solids and liquids and generally feeling unwell. Patient states her only concern is pain to her buttock area which she states is due to a pressure wound. She is unaware of any fevers, chills, rigors, nausea, vomiting, bowel changes
or urinary symptoms. Patient denies any headaches, visual changes, focal weakness or numbness.
Past History
<Wild Blackmon PA-C - Last Filed: 01/04/24 17:48>
Past History
ED Past Medical History: CHF, GERD, HTN, Hypercholesterolemia, Other (pulm htn) and Other (PE)
ED Past Surgical History: Gynecological, Orthopedic and Urological
Social History
Tobacco: Non-smoker
Alcohol: None
Drug: None
Personal:
Living: with family
Review of Systems
<Wild Blackmon PA-C - Last Filed: 01/04/24 17:48>
Review of Systems
All Other Systems: ROS reviewed and negative except as documented in HPI and ROS
Phy Exam
<Wild Blackmon PA-C - Last Filed: 01/04/24 17:48>
Physical Exam
Physical Exam:
GENERAL: Alert , appears older than stated age, pale, unwell appearing
EYE: clear conjunctiva b/l
HEAD: NCAT
ENT: mmm.
CARDIAC: Tachycardic rate and rhythm, no murmur
LUNGS: Clear breath sounds bilaterally, no acute respiratory distress, no wheezes/rales/rhonchi
ABDOMEN: Soft, without focal tenderness, no r/g, no cvat
RECTAL: Dark/maroon in color, heme positive
GENITOURINARY: patel catheter in place. somewhat cloudy urine
NEUROLOGICAL: Alert and oriented
SKIN: Warm and dry, skin intact. pale, stage 1/2 pressure ulcer to sacral region. no surrounding erythema
MUSCULOSKELETAL: No edema, well perfused.
PSYCH: Normal and appropriate interaction.
Scores
<Wild Blackmon PA-C - Last Filed: 01/04/24 17:48>
Heart Failure Risk
Heart Failure Risk Score: Not Applicable
Heart Score for Chest Pain Patients
STEMI patient?: Not applicable
Withdrawal Assessment of Alcohol
Withdrawal Assessment Completed?: Not applicable
Course
<Wild Blackmon PA-C - Last Filed: 01/04/24 17:48>
Orders/Labs/Results
Orders:
Orders
01/04/24 13:31
Electrocardiogram (*1) Urgent
Reason for Study: Other
Other Reason for Exam: Possible Sepsis
Cardiac Monitoring- Treatment ONCE
EKG- Treatment ONCE
IV Insert/Care/Rem.- Treatment PRN
O2 Therapy [RESP] Urgent
Titrate/Wean O2 to maintain O2 sat greater than (%): 93
Special Instructions: TO MAINTAIN CONTINUOUS O2 SATS > OR = 93%
Pulse Ox/cont/shift [RESP] Urgent
Quantity: 1
Special Instructions: CONTINUOUS
01/04/24 13:37
Complete Blood Count/With Diff Urgent
Comprehensive Metabolic Panel Urgent
Lactic Acid Q4H
Comment: ON ICE, CANCEL 2ND ORDER IF FIRST LACTIC ACID LEVEL <2
Urinalysis Reflex To Culture Urgent
Date Specimen was Collected: 01/04/24
Time Specimen was Collected: 13:31
Urine Microscopic Reflex Cult Urgent
Urine Culture Urgent
EMILY Source: U
Specimen Description:
Date Specimen was Collected: 01/04/24
Time Specimen was Collected: 13:31
01/04/24 13:42
CR Chest Portable - 1 View Urgent
Comment:
Reason For Exam: generalized weakness
Reason Study Needs to be Portable: Unable to Transport
01/04/24 13:44
CT Head W/o Iv Contrast Urgent
Comment:
Reason For Exam: possible seizure
01/04/24 13:52
Type+Screen Urgent
01/04/24 13:56
Pantoprazole [Protonix IV] 80 mg IV NOW STA
01/04/24 14:00
Pantoprazole 80 mg/100 ml Nss [Protonix] 80 mg in 100 ml IV Q10H
01/04/24 14:23
Blood Bank Products [* Blood Bank Products] Urgent
Blood Bank Products: *Packed RBC Leuko(PRBC's)
Quantity: 2
Transfuse Today: Yes
Reason: Anemia
01/04/24 14:26
CT Angio Abd/Pelvis w/wo IV [CT Abd/pelvis Angio W/wo Iv] Urgent
Comment:
Reason For Exam: GI bleeding, elevated lactic acid
Piperacillin/Tazo 3.375 Gram [Zosyn] 3.375 gram in 50 ml IV NOW
01/04/24 14:27
Vancomycin [Vancocin] 1,500 mg 0.9% Sodium Chloride 500 ml [Nss] 500 ml IV NOW
01/04/24 14:33
Calcium Gluconate 1,000 mg IV NOW STA
Dextrose 50%-Water [Dextrose 50% Syringe] 12.5 grams IV [id number] PRN
Dextrose 50%-Water [Dextrose 50% Syringe] 25 grams IV NOW STA
Insulin Human Regular [Novolin R] 5 units IV NOW STA
Sodium Bicarbonate 50 meq IV NOW STA
01/04/24 14:34
Bedside Glucose PRE IV Insulin- HyperK+ NOW
01/04/24 14:58
Blood Culture Q30M
EMILY Source: Blood/Venous
Specimen Description:
Blood Culture Q30M
EMILY Source: Blood/Venous
Specimen Description:
Hydrocortisone Sod Succinate [Solu-Cortef] 100 mg IV NOW STA
01/04/24 14:59
PTT Urgent
Prothrombin Time Urgent
01/04/24 15:28
Admit/Transfer Patient As Directed
Co-Sign Provider:
Level of Care: Inpatient admission
Assign to:: ICU
Physician / Group: htay
Diagnosis: Hemorrhagic shock due to painless acute HoB POS maroon colored stool GIB
Reason for Hospitalization: Hemorrhagic shock due to painless acute HoB POS maroon colored stool GIB
Expected length of stay greater than two midnights?: Yes
ELOS- Estimated Length of Stay in days: 7
I certify the patient meets the requirements for IP care: Yes
01/04/24 15:30
NORepinephrine 4 MG/250 ML [Levophed] 4 mg in 250 ml IV PER PROTOCOL
Initial dose in mcg/min, then titrate:: 2
Titrate to keep:: SBP > 90 mmHg
Titrate by mcg/min:: 1-2 mcg/min
Frequency of titrations (minutes):: 5
Maximum dose in ICU in mcg/min:: 30
Maximum dose in IMU in mcg/min:: 8
Maximum dose in IVU in mcg/min:: 4
Begin to taper infusion when:: Remained at goal for 4hrs
Taper by mcg/min:: 1-2 mcg/min
Frequency of taper (minutes) if patient maintains goal:: 30
Taper to off?: Yes
If infusion off & no longer maintaining goal:: Contact Provider
01/04/24 15:31
Code Status As Directed
Resuscitation Status: Full Code
01/04/24 16:04
Bedside Glucose POST IV Insulin- HyperK+ Q1HX2,Q2HX2
01/04/24 17:04
Potassium Urgent
Comment: draw 2 hours after regular insulin IV administration
01/04/24 17:43
H&H Q6H
Bisacodyl [Dulcolax] 10 mg RECTAL [id number] PRN
Docusate W/Senna [Senokot-S] 1 tablet PO BIDPRN PRN
Hydrocortisone Sod Succinate [Solu-Cortef] 100 mg IV NOW STA
Polyethylene Glycol Powder [Miralax] 17 grams PO DAILYPRN PRN
01/04/24 17:43
GASTROINTESTINAL CONSULT Routine
Consulting Provider: La Edgar
Was physician already notified: Yes
Reason for consult: Hemorrhagic shock due to painless acute HoB POS maroon colored stool GIB
Prothrombin Time Urgent
Comment: If not done in ED
Activity As Directed
Activity Level: With Assistance
Compression Sleeves [Pneumatic Compression Sleeves] As Directed
Type: Knee high
INT (Intravenous Needle Therapy) As Directed
Comment: Place 2 IV catheters of the largest bore possible until stable
Intake/ Output As Directed
Frequency: Per unit guidelines
Orthostatic Vital Signs As Directed
Orthostatic VS Frequency: Now
Comment: then every four hours for twenty-four hours
Vital Signs As Directed
Frequency: Per unit guidelines
DX Deep Vein Thrombosis Video Routine
01/04/24 17:45
Lactic Acid Q4H
Comment: ON ICE, CANCEL 2ND ORDER IF FIRST LACTIC ACID LEVEL <2
01/04/24 23:43
H&H Q6H
01/05/24 02:00
Pantoprazole 80 mg/100 ml Nss [Protonix] 80 mg in 100 ml IV Q10H
01/05/24 Breakfast
NPO
Allow oral meds: No
Allow clear liquids: No
Complete Blood Count/No Diff IN AM
Comprehensive Metabolic Panel IN AM
Prothrombin Time IN AM
Abnormal Lab Results
01/04/24 01/04/24 01/04/24
13:37 13:52 14:59
WBC 17.2 H 10^3/uL
(4.8-10.8)
RBC 1.57 L 10^6/uL
(4.20-5.40)
Hgb 5.8 L* g/dL
(12.0-16.0)
Hct 18.5 L* %
(37.0-47.0)
MCV 117.8 H fL
(81.0-99.0)
MCH 36.9 H pg
(27.0-31.0)
MCHC 31.4 L g/dL
(33.0-37.0)
RDW 22.5 H %
(11.5-14.5)
Plt Count 51 L 10^3/uL
(130-400)
MPV 12.7 H fL
(7.4-10.4)
Abs Immat Gran (auto) 1.7 H 10^3/uL
(0-0.05)
Absolute Neuts (auto) 14.2 H 10^3/uL
(1.4-6.5)
Absolute Lymphs (auto) 0.4 L 10^3/uL
(1.2-3.4)
Absolute Monos (auto) 0.9 H 10^3/uL
(0.1-0.6)
Immature Gran % 9.9 H %
(0-0.5)
Neutrophils % 82.2 H %
(42.2-75.2)
Lymphocytes % 2.0 L %
(20.5-51.1)
PT 16.9 H Sec
(11.4-14.6)
APTT 20.3 L Sec
(23.4-35.0)
Sodium 128 L mmol/L
(135-145)
Potassium 6.2 H* mmol/L
(3.5-5.1)
Chloride 91 L mmol/L
(98-107)
Carbon Dioxide 18 L mmol/L
(22-30)
BUN 99 H mg/dl
(7-17)
Creatinine 1.5 H mg/dL
(0.6-1.0)
Glucose 195 H mg/dl
(70-99)
Lactic Acid 7.4 H* mmol/L
(0.7-2.0)
Total Bilirubin 1.5 H mg/dl
(0.2-1.3)
Alkaline Phosphatase 135 H U/L
(38-126)
Total Protein 5.2 L g/dl
(6.3-8.2)
Albumin 3.2 L g/dl
(3.5-5.0)
Ur Occult Blood Reflex 2+ A
(Negative)
Leukocyte Esterase Rfl 2+ A
(Negative)
Urine Bacteria (Reflex) Many A
(Negative)
Urine Albumin (Reflex) 1+ A
(Neg - Trace)
POC Glucose
Crossmatch IS Only See Detail
01/04/24
15:10
WBC
RBC
Hgb
Hct
MCV
MCH
MCHC
RDW
Plt Count
MPV
Abs Immat Gran (auto)
Absolute Neuts (auto)
Absolute Lymphs (auto)
Absolute Monos (auto)
Immature Gran %
Neutrophils %
Lymphocytes %
PT
APTT
Sodium
Potassium
Chloride
Carbon Dioxide
BUN
Creatinine
Glucose
Lactic Acid
Total Bilirubin
Alkaline Phosphatase
Total Protein
Albumin
Ur Occult Blood Reflex
Leukocyte Esterase Rfl
Urine Bacteria (Reflex)
Urine Albumin (Reflex)
POC Glucose 177 H mg/dl
(70-99)
Crossmatch IS Only
01/04/24 13:37
01/04/24 13:37
Vital Signs
Initial and Last Documented VS:
Initial Vital Signs
Temp Pulse Resp BP Pulse Ox
97 F 108 17 136/123 96
01/04/24 13:33 01/04/24 13:33 01/04/24 13:33 01/04/24 13:33 01/04/24 13:33
Last Documented Vital Signs
Temp Pulse Resp BP Pulse Ox
97.4 F 109 19 95/72 92
01/04/24 16:31 01/04/24 16:50 01/04/24 16:50 01/04/24 16:50 01/04/24 16:31
Systems Administration Analyst consulted with Physician
Systems Administration Analyst consulted with physician?: Yes
Name of Physician Consulted: Rob
<Jagjit Rivas, DO - Last Filed: 01/04/24 15:01>
Orders/Labs/Results
Orders:
Orders
01/04/24 13:31
Electrocardiogram (*1) Urgent
Reason for Study: Other
Other Reason for Exam: Possible Sepsis
Cardiac Monitoring- Treatment ONCE
EKG- Treatment ONCE
IV Insert/Care/Rem.- Treatment PRN
O2 Therapy [RESP] Urgent
Titrate/Wean O2 to maintain O2 sat greater than (%): 93
Special Instructions: TO MAINTAIN CONTINUOUS O2 SATS > OR = 93%
Pulse Ox/cont/shift [RESP] Urgent
Quantity: 1
Special Instructions: CONTINUOUS
01/04/24 13:37
Complete Blood Count/With Diff Urgent
Comprehensive Metabolic Panel Urgent
Lactic Acid Q4H
Comment: ON ICE, CANCEL 2ND ORDER IF FIRST LACTIC ACID LEVEL <2
Urinalysis Reflex To Culture Urgent
Date Specimen was Collected: 01/04/24
Time Specimen was Collected: 13:31
Urine Microscopic Reflex Cult Urgent
Urine Culture Urgent
EMILY Source: U
Specimen Description:
Date Specimen was Collected: 01/04/24
Time Specimen was Collected: 13:31
01/04/24 13:42
CR Chest Portable - 1 View Urgent
Comment:
Reason For Exam: generalized weakness
Reason Study Needs to be Portable: Unable to Transport
01/04/24 13:44
CT Head W/o Iv Contrast Urgent
Comment:
Reason For Exam: possible seizure
01/04/24 13:52
Type+Screen Urgent
01/04/24 13:56
Pantoprazole [Protonix IV] 80 mg IV NOW STA
01/04/24 14:00
Pantoprazole 80 mg/100 ml Nss [Protonix] 80 mg in 100 ml IV Q10H
01/04/24 14:23
Blood Bank Products [* Blood Bank Products] Urgent
Blood Bank Products: *Packed RBC Leuko(PRBC's)
Quantity: 2
Transfuse Today: Yes
Reason: Anemia
01/04/24 14:26
CT Angio Abd/Pelvis w/wo IV [CT Abd/pelvis Angio W/wo Iv] Urgent
Comment:
Reason For Exam: GI bleeding, elevated lactic acid
Piperacillin/Tazo 3.375 Gram [Zosyn] 3.375 gram in 50 ml IV NOW
01/04/24 14:27
Vancomycin [Vancocin] 1,500 mg 0.9% Sodium Chloride 500 ml [Nss] 500 ml IV NOW
01/04/24 14:33
Calcium Gluconate 1,000 mg IV NOW STA
Dextrose 50%-Water [Dextrose 50% Syringe] 12.5 grams IV [id number] PRN
Dextrose 50%-Water [Dextrose 50% Syringe] 25 grams IV NOW STA
Insulin Human Regular [Novolin R] 5 units IV NOW STA
Sodium Bicarbonate 50 meq IV NOW STA
01/04/24 14:34
Bedside Glucose PRE IV Insulin- HyperK+ NOW
01/04/24 14:58
Blood Culture Q30M
EMILY Source: Blood/Venous
Specimen Description:
Blood Culture Q30M
EMILY Source: Blood/Venous
Specimen Description:
Hydrocortisone Sod Succinate [Solu-Cortef] 100 mg IV NOW STA
01/04/24 14:59
PTT Urgent
Prothrombin Time Urgent
01/04/24 15:28
Admit/Transfer Patient As Directed
Co-Sign Provider:
Level of Care: Inpatient admission
Assign to:: ICU
Physician / Group: htay
Diagnosis: Hemorrhagic shock due to painless acute HoB POS maroon colored stool GIB
Reason for Hospitalization: Hemorrhagic shock due to painless acute HoB POS maroon colored stool GIB
Expected length of stay greater than two midnights?: Yes
ELOS- Estimated Length of Stay in days: 7
I certify the patient meets the requirements for IP care: Yes
01/04/24 15:30
NORepinephrine 4 MG/250 ML [Levophed] 4 mg in 250 ml IV PER PROTOCOL
Initial dose in mcg/min, then titrate:: 2
Titrate to keep:: SBP > 90 mmHg
Titrate by mcg/min:: 1-2 mcg/min
Frequency of titrations (minutes):: 5
Maximum dose in ICU in mcg/min:: 30
Maximum dose in IMU in mcg/min:: 8
Maximum dose in IVU in mcg/min:: 4
Begin to taper infusion when:: Remained at goal for 4hrs
Taper by mcg/min:: 1-2 mcg/min
Frequency of taper (minutes) if patient maintains goal:: 30
Taper to off?: Yes
If infusion off & no longer maintaining goal:: Contact Provider
01/04/24 15:31
Code Status As Directed
Resuscitation Status: Full Code
01/04/24 16:04
Bedside Glucose POST IV Insulin- HyperK+ Q1HX2,Q2HX2
01/04/24 17:04
Potassium Urgent
Comment: draw 2 hours after regular insulin IV administration
01/04/24 17:43
H&H Q6H
Bisacodyl [Dulcolax] 10 mg RECTAL [id number] PRN
Docusate W/Senna [Senokot-S] 1 tablet PO BIDPRN PRN
Hydrocortisone Sod Succinate [Solu-Cortef] 100 mg IV NOW STA
Polyethylene Glycol Powder [Miralax] 17 grams PO DAILYPRN PRN
01/04/24 17:43
GASTROINTESTINAL CONSULT Routine
Consulting Provider: La Edgar
Was physician already notified: Yes
Reason for consult: Hemorrhagic shock due to painless acute HoB POS maroon colored stool GIB
Prothrombin Time Urgent
Comment: If not done in ED
Activity As Directed
Activity Level: With Assistance
Compression Sleeves [Pneumatic Compression Sleeves] As Directed
Type: Knee high
INT (Intravenous Needle Therapy) As Directed
Comment: Place 2 IV catheters of the largest bore possible until stable
Intake/ Output As Directed
Frequency: Per unit guidelines
Orthostatic Vital Signs As Directed
Orthostatic VS Frequency: Now
Comment: then every four hours for twenty-four hours
Vital Signs As Directed
Frequency: Per unit guidelines
DX Deep Vein Thrombosis Video Routine
01/04/24 17:45
Lactic Acid Q4H
Comment: ON ICE, CANCEL 2ND ORDER IF FIRST LACTIC ACID LEVEL <2
01/04/24 23:43
H&H Q6H
01/05/24 02:00
Pantoprazole 80 mg/100 ml Nss [Protonix] 80 mg in 100 ml IV Q10H
01/05/24 Breakfast
NPO
Allow oral meds: No
Allow clear liquids: No
Complete Blood Count/No Diff IN AM
Comprehensive Metabolic Panel IN AM
Prothrombin Time IN AM
Abnormal Lab Results
01/04/24 01/04/24 01/04/24
13:37 13:52 14:59
WBC 17.2 H 10^3/uL
(4.8-10.8)
RBC 1.57 L 10^6/uL
(4.20-5.40)
Hgb 5.8 L* g/dL
(12.0-16.0)
Hct 18.5 L* %
(37.0-47.0)
MCV 117.8 H fL
(81.0-99.0)
MCH 36.9 H pg
(27.0-31.0)
MCHC 31.4 L g/dL
(33.0-37.0)
RDW 22.5 H %
(11.5-14.5)
Plt Count 51 L 10^3/uL
(130-400)
MPV 12.7 H fL
(7.4-10.4)
Abs Immat Gran (auto) 1.7 H 10^3/uL
(0-0.05)
Absolute Neuts (auto) 14.2 H 10^3/uL
(1.4-6.5)
Absolute Lymphs (auto) 0.4 L 10^3/uL
(1.2-3.4)
Absolute Monos (auto) 0.9 H 10^3/uL
(0.1-0.6)
Immature Gran % 9.9 H %
(0-0.5)
Neutrophils % 82.2 H %
(42.2-75.2)
Lymphocytes % 2.0 L %
(20.5-51.1)
PT 16.9 H Sec
(11.4-14.6)
APTT 20.3 L Sec
(23.4-35.0)
Sodium 128 L mmol/L
(135-145)
Potassium 6.2 H* mmol/L
(3.5-5.1)
Chloride 91 L mmol/L
(98-107)
Carbon Dioxide 18 L mmol/L
(22-30)
BUN 99 H mg/dl
(7-17)
Creatinine 1.5 H mg/dL
(0.6-1.0)
Glucose 195 H mg/dl
(70-99)
Lactic Acid 7.4 H* mmol/L
(0.7-2.0)
Total Bilirubin 1.5 H mg/dl
(0.2-1.3)
Alkaline Phosphatase 135 H U/L
(38-126)
Total Protein 5.2 L g/dl
(6.3-8.2)
Albumin 3.2 L g/dl
(3.5-5.0)
Ur Occult Blood Reflex 2+ A
(Negative)
Leukocyte Esterase Rfl 2+ A
(Negative)
Urine Bacteria (Reflex) Many A
(Negative)
Urine Albumin (Reflex) 1+ A
(Neg - Trace)
POC Glucose
Crossmatch IS Only See Detail
01/04/24
15:10
WBC
RBC
Hgb
Hct
MCV
MCH
MCHC
RDW
Plt Count
MPV
Abs Immat Gran (auto)
Absolute Neuts (auto)
Absolute Lymphs (auto)
Absolute Monos (auto)
Immature Gran %
Neutrophils %
Lymphocytes %
PT
APTT
Sodium
Potassium
Chloride
Carbon Dioxide
BUN
Creatinine
Glucose
Lactic Acid
Total Bilirubin
Alkaline Phosphatase
Total Protein
Albumin
Ur Occult Blood Reflex
Leukocyte Esterase Rfl
Urine Bacteria (Reflex)
Urine Albumin (Reflex)
POC Glucose 177 H mg/dl
(70-99)
Crossmatch IS Only
01/04/24 13:37
01/04/24 13:37
Vital Signs
Initial and Last Documented VS:
Initial Vital Signs
Temp Pulse Resp BP Pulse Ox
97 F 108 17 136/123 96
01/04/24 13:33 01/04/24 13:33 01/04/24 13:33 01/04/24 13:33 01/04/24 13:33
Last Documented Vital Signs
Temp Pulse Resp BP Pulse Ox
97.4 F 109 19 95/72 92
01/04/24 16:31 01/04/24 16:50 01/04/24 16:50 01/04/24 16:50 01/04/24 16:31
Procedures
<Jagjit Rivas DO - Last Filed: 01/04/24 15:01>
Central Line
Left Femoral:
Indication for procedure:: Anemia and sepsis
Procedure completed by: Jagjit Rivas DO
Consent form signed: Yes
Anesthesia: 1% Lidocaine
Central line lumen: triple
Number of attempts: 1
Central line complications: none
Sterile dressing applied?: Yes
<Wild Blackmon PA-C - Last Filed: 01/04/24 17:48>
MDM/Problems Addressed
Differential Diagnosis Includes:
GI bleed, anemia, electrolyte abnormality, less concern for new onset seizure, less concern for cellulitis from pressure ulcer
MDM/Problems Addressed:
73-year-old female presenting to the ER for a multitude of symptoms, possible new onset seizure witnessed at her independent living facility but no staff/family witnessed event. EMS noted patient was hypotensive during her transport, here blood
pressure little bit more normalized but she is tachycardic. Patient is pale in appearance and appears unwell. Based off her exam I am more suspicious for an acute GI bleed and anemia as the cause for her symptoms. Given the reported possible
seizure will obtain a CT of the head. Patient is quite cool to the touch but afebrile. Will order lactic acid, urine and chest x-ray as part of an infectious work up. Anticipate admission
<Wild Blackmon PA-C - Last Filed: 01/04/24 17:48>
*Pulse Oximetry
Patient hypoxic: no
*EKG
Interpreted by ED Provider?: Yes
Heart Rate: 104
Rate: tachycardiac
Rhythm: sinus
Huslia: normal axis
Ischemia: T-wave inversion (Leads I and aVL, lead II, V4 through V6)
*Scarfer Operator Interpretation
Rate: tachycardiac
Rhythm: sinus
*Critical Care Note
Total Time (30-74mins, 75-104mins- exclusive of procedures): 45
comment:
Critical care statement: A total of 45 minutes of critical care time was provided for this patient. This includes management of unstable vital signs, evaluation of the patient at bedside, reviewing the patient's pertinent medical records, discussion
with consultants, review of old EKGs and review of pertinent medical records. This time with separate from time utilized to perform the aforementioned documented procedures
Data Reviewed
Review of Other/Old Records Reveals: Labs, Records and Discharge Summary
Source: patient, records and ambulance crew
<Wild Blackmon PA-C - Last Filed: 01/04/24 17:48>
Comment
Comment:
Patient's labs show a leukocytosis of 17,000 which could potentially be steroid-induced given her chronic steroid use however there is a hemoglobin of 5.8 which is down from her discharge hemoglobin of 8.7 on last visit. Patient also has a lactic
acid of greater than 7. Blood cultures, IV antibiotics and a CTA of the abdomen and pelvis ordered for considering mesenteric ischemia as a potential cause for her GI bleeding. Patient's chemistry returns with a sodium of 128, potassium of 6.2,
uremia, prerenal azotemia which is likely from underperfusion from her symptomatic anemia. Medications for hyperkalemia ordered including calcium gluconate, insulin, dextrose and sodium bicarbonate. Decision was made to hold on Lokelma given
patient's acute GI bleeding. Hospitalist team was notified and accepts for continued evaluation and treatment. Due to patient's persistent hypotension, tachycardia and instability decision was made to place a central line. Patient to be admitted
to the ICU.
Patient Management
Discussion with other providers: Hospitalist
Escalation/DeEscalation of care consider admission/obs:
Hospitalist team accepts for continued evaluation and treatment
ED Attending Note
<Wild Blackmon PA-C - Last Filed: 01/04/24 17:48>
-
Portions of this chart may have been created with voice recognition software.� Occasional wrong word or��sound alike� substitutions may have occurred due to the inherent limitations of voice recognition software.
<Jagjit Rivas DO - Last Filed: 01/04/24 15:01>
ED Attending Note
Patient seen and examined by attending physician: Yes
I performed the substantive portion of visit, reviewed & personally made and approve the management plan that is documented in note by myself or CIERRA.: Yes
ED Attending Note:
I have seen and evaluated the patient with a [id number] encounter. I have spoken to the advance practicer provider and involved in the medical history, the physical exam, medical decision making.
Evaluation and management service: agree unless noted differently below.
Results interpretation: agree unless noted differently below.
Focused HPI: 73-year-old female presenting from [facility] for evaluation of new seizure-like activity. However, on exam, patient extremely pale and lethargic. Patient is answering questions appropriately
Physical exam: Pale and lethargic, no focal neurodeficits
Medical Decision Making: Concern for active GI bleeding. Hemoglobin 5.8. Central line placed. Patient started on blood transfusion. Will obtain CT abdomen pelvis angiogram to rule out active bleeding
Discharge Plan
Departure
Patient Disposition: Admit
Date of Disposition: 01/04/24
Time of Disposition: 14:25
Presentation/result/management discussed w/ accepting MD/DO: Hospitalist
Discharge Problem:
Acute gastrointestinal bleeding, Anemia
Interventions
Interventions:
*Risk Screen - Suicide Last Done: 01/04/24 13:33
*General Assessment Last Done: 01/04/24 13:33
*Neglect/Abuse Screening Last Done: 01/04/24 13:33
ED- Fall Risk Assessment Last Done: 01/04/24 13:57
ED- Cardiac Assessment Last Done: 01/04/24 13:57
ED- Neurological Assessment Last Done: 01/04/24 13:57
ED- Pulmonary Assessment Last Done: 01/04/24 13:57
[2024-01-04] MEDS: PROTONIX IV 80 MG IV (14:11)
[2024-01-04 14:12] LABS: Urine Albumin 1+ (Neg - Trace); Urine Bilirubin Negative (Negative); Urine Character Very Cloudy (Clear); Urine Color Yellow; Urine Glucose Negative (Negative); Urine Ketone Negative (Negative); Urine Leukocyte 2+ (Negative); Urine Nitrite Negative (Negative); Urine Occult Blood 2+ (Negative); Urine Urobilinogen Negative (Neg - 1+)
[2024-01-04 14:15] LABS: Hematocrit 18.5 % (37.0-47.0); Hemoglobin 5.8 g/dL (12.0-16.0); Mean Corp Hgb Conc. 31.4 g/dL (33.0-37.0); Mean Corpuscular Hgb 36.9 pg (27.0-31.0); Mean Corpuscular Volume 117.8 fL (81.0-99.0); Red Blood Cell Count 1.57 10^6/uL (4.20-5.40); Red Cell Dist. Width 22.5 % (11.5-14.5); White Blood Cell Count 17.2 10^3/uL (4.8-10.8)
[2024-01-04] MEDS: PROTONIX 100 IV (14:16)
[2024-01-04 14:21] LABS: Urine Squamous Cell 0-2 /LPF (Few)
[2024-01-04 14:22] LABS: Urine Bacteria Many (Negative); Urine Red Blood Cell 0-2 /HPF (0-2)
--- NOTE | 2024-01-04 14:24 | EDRN ---
Pt arrives with stage 2 wound on sacrum. Pt c/o pain in this area and keeps repeating 'They put lotion on it at night and my daughter knows all about why I am in pain on my bottom' Waffled placed under pt.
[2024-01-04 14:25] LABS: Lactic Acid 7.4 mmol/L (0.7-2.0)
[2024-01-04 14:29] LABS: Mean Platelet Volume 12.7 fL (7.4-10.4); Platelet Count 51 10^3/uL (130-400)
[2024-01-04 14:31] LABS: % Basophils 0.4 % (0-2); % Eosinophils 0.1 % (0-6); % Immature Granulocytes 9.9 % (0-0.5); % Monocytes 5.4 % (1.7-9.3); % Neutrophils 82.2 % (42.2-75.2); Absolute Basophils 0.1 10^3/uL (0-0.2); Absolute Immature Granulocytes 1.7 10^3/uL (0-0.05); Absolute Lymphocytes 0.4 10^3/uL (1.2-3.4); Absolute Monocytes 0.9 10^3/uL (0.1-0.6); Absolute Neutrophils 14.2 10^3/uL (1.4-6.5); Nucleated Red Blood Cells % 17.5 %
[2024-01-04 14:32] LABS: ALT (SGPT) 24 U/L (0-35); AST (SGOT) 20 U/L (14-36); Albumin 3.2 g/dl (3.5-5.0); Alkaline Phosphatase 135 U/L (38-126); Blood Urea Nitrogen 99 mg/dl (7-17); Calcium 8.9 mg/dl (8.4-10.2); Carbon Dioxide 18 mmol/L (22-30); Chloride 91 mmol/L (98-107); Estimated Creatinine Clearance 28 ml/min; Glucose 195 mg/dl (70-99); Potassium 6.2 mmol/L (3.5-5.1); Sodium 128 mmol/L (135-145); Total Bilirubin 1.5 mg/dl (0.2-1.3); Total Protein 5.2 g/dl (6.3-8.2); eGFR 37.03
[2024-01-04] MEDS: ZOSYN 50 IV ×2 (14:57→22:21)
[2024-01-04] MEDS: SODIUM BICARBONATE 50 MEQ IV (15:00)
[2024-01-04] MEDS: DEXTROSE 50% SYRINGE 25 GRAMS IV (15:01)
[2024-01-04] MEDS: CALCIUM GLUCONATE 1000 MG IV (15:02)
[2024-01-04] MEDS: NOVOLIN R 5 UNITS IV (15:04)
--- NOTE | 2024-01-04 15:12 | HPS.HSE ---
Family Physician
-
Family Physician: Anthony Dave MD
Chief Complaint
-
for evaluation of a possible new onset seizure
History of Present Illness
HPI
73F Res of Trav Home HX CREST syndrome, chronic thrombocytopenia , chronic prenisone depedent , HX PE, chr HFpEF, HTN, CKD, chronic indwelling Savage catheter , HX sacral prssure ulcer seen at ER via EMS;
- EMS report hypotension during trnsport
- for evaluation of a possible new onset seizure
- patient and EMS unable to state what exactly happened that led the facility to believe patient had a seizure
- Neither noted postictal state
- Over the last 4 days she has been experiencing increased weakness, limited p.o. intake to both solids and liquids
- generally feeling unwell.
HX pressure wound.
ROS:
unaware of any fevers, chills, rigors, nausea, vomiting, bowel changes or urinary symptoms.
Ptient denies any headaches, visual changes, focal weakness or numbness.
@ ER
Tachycardic, Hypotense as low as 70/50
Cold periphery
Medical History
Past Medical History
Past Medical History: Reports Other
Additional Past Medical History:
Minimal-change kidney disease,
lupus/scleroderma overlap,
CHF,
hypertension,
hyperlipidemia,
pulmonary hypertension,
mitral regurgitation,
gastroesophageal reflux disease,
osteoarthritis
Anemia
Chronic thrombocytopenia
Past Surgical History: Reports Other
Additional Past Surgical History:
Bilateral total hip arthroplasty
Hysterectomy
Bladder surgery
Cataract surgery
Social History
Tobacco: Non-smoker
Alcohol: Occasional
Living: Alone
Employment: Employed
Family History
Family History: Not pertinent
Allergies / Home Medications
Allergies reflects when Allergies were last updated in [facility].
Home Medications with original date entered in [facility]
Allergy/Medication List:
Allergies
Allergy/AdvReac Type Severity Reaction Status Date / Time
No Known Allergies Allergy Verified 07/12/23 12:25
Home Medications
cranberry extract 200 mg capsule (Ellura) 200 mg PO DAILY Supplement 09/10/22
sildenafil (pulm.hypertension) 20 mg tablet 20 mg PO TID pulmonary hypertension 05/24/23
ferrous sulfate 325 mg (65 mg iron) tablet (Iron (ferrous sulfate)) 325 mg PO NOON Supplement #0 tabs 08/25/23
atorvastatin 10 mg tablet 10 mg PO HS High cholesterol 30 days #30 tabs 09/09/23
metoprolol succinate 25 mg tablet,extended release 24 hr 12.5 mg (1/2 x 25 mg) PO BID Blood pressure 30 days #30 tabs 09/09/23
multivitamin with folic acid 400 mcg tablet (Tab-A-Lorna) 1 tab PO DAILY Supplement 30 days #30 tabs 09/09/23
potassium chloride 20 mEq tablet,extended release(part/cryst) 40 meq (2 x 20 mEq) PO DAILY supplement-hypokalemia 30 days #60 tabs 09/09/23
azelastine 137 mcg (0.1 %) nasal spray 1 spray intranasal BID 12/01/23
collagenase clostridium histo. 250 unit/gram topical ointment (Santyl) 1 applic topical DAILY 12/01/23
cyanocobalamin (vitamin B-12) 1,000 mcg/mL injection solution 1,000 mcg IM MONTHLY Supplement 12/01/23
furosemide 40 mg tablet (Lasix) 80 mg PO BID 12/01/23
prednisone 50 mg tablet 50 mg PO DAILY Autoimmune disorder 12/01/23
Review of Systems
-
History Source: Patient
Constitutional: Reports Weight Gain and Fatigue
Abdomen/GI: Reports No Symptoms
: Reports No Symptoms
Musculoskeletal: Reports Edema
Skin: Reports No Symptoms
Neurological: Reports No Symptoms
Endocrine: Reports No Symptoms
Hematologic/Lymphatic: Reports No Symptoms
Psych: Reports No Symptoms
Physical Exam
Vital Signs
Vital Signs
Temp Pulse Resp BP Pulse Ox
97 F 100 24 84/51 96
01/04/24 13:33 01/04/24 14:15 01/04/24 14:15 01/04/24 14:08 01/04/24 13:33
Physical Exam
General: Well Developed, Well Nourished and No Apparent Distress
HEENT: NormoCephalic, Moist mucous membranes, Atraumatic and Oxygen
Respiratory: Crackles and Decreased Breath Sounds
Cardiac: S1/S2 and Regular Rhythm; No Murmur or Rub
GI: Soft, Non Tender, Non Distended and Normal Bowel Sounds; No Organomegaly
Rectal: Deferred by Provider
Musculoskeletal: No Clubbing, No Cyanosis, Edema, Left Lower Extremity (Bruising LE noted ) and Edema, Right Lower Extremity (Bruising LE noted )
Skin: No Rash
Neuro: Awake, Alert, Oriented, No Motor Deficits and Nonfocal/grossly intact
Psych: Calm
Laboratory Results
-
01/04/24 13:37
Laboratory Results
PT Cancelled 01/04/24 13:52
INR Cancelled 01/04/24 13:52
APTT Cancelled 01/04/24 13:52
Lactic Acid 7.4 mmol/L (0.7-2.0) H* 01/04/24 13:37
Total Bilirubin 1.5 mg/dl (0.2-1.3) H 01/04/24 13:37
AST 20 U/L (14-36) 01/04/24 13:37
ALT 24 U/L (0-35) 01/04/24 13:37
Alkaline Phosphatase 135 U/L (38-126) H 01/04/24 13:37
Data Reviewed
-
CT Scan: Other (pending )
Lab Data: Labs Reviewed by me
Old Records: Reviewed
Impression/Plan
-
Reviewed VS:
Vital Signs
Temp Pulse Resp BP Pulse Ox
97 F 100 24 84/51 96
01/04/24 13:33 01/04/24 14:15 01/04/24 14:15 01/04/24 14:08 01/04/24 13:33
Laboratory Tests
12/05/23 12/06/23 12/08/23
04:48 04:20 06:42
WBC
Hgb 7.1 L 8.7 L D
MCV 106.4 H
Plt Count 97 L
Sodium 132 L
Potassium
Chloride
Carbon Dioxide
BUN
Creatinine 1.0
eGFR > 60.00
Glucose
Lactic Acid
Total Bilirubin
Alkaline Phosphatase
Total Protein
Albumin
Urine Clarity
Leukocyte Esterase Rfl
Urine WBC (Reflex)
01/04/24 01/04/24
13:37 17:04
WBC 17.2 H
Hgb 5.8 L*
MCV 117.8 H
Plt Count Pending
Sodium 128 L
Potassium 6.2 H* Pending
Chloride 91 L
Carbon Dioxide 18 L
BUN 99 H
Creatinine 1.5 H
eGFR 37.03
Glucose 195 H
Lactic Acid 7.4 H*
Total Bilirubin 1.5 H
Alkaline Phosphatase 135 H
Total Protein 5.2 L
Albumin 3.2 L
Urine Clarity Very cloudy
Leukocyte Esterase Rfl 2+ A
Urine WBC (Reflex) 3-5
EKG
SINUS TACHYCARDIA
NONSPECIFIC T WAVE ABNORMALITY
ABNORMAL ECG
WHEN COMPARED WITH ECG OF 02-DEC-2023 09:40,
PREMATURE SUPRAVENTRICULAR COMPLEXES ARE NO LONGER PRESENT
NONSPECIFIC T WAVE ABNORMALITY HAS REPLACED INVERTED T WAVES IN INFERIOR LEADS
Last hospitalist admission:Date of Admission: 12/01/23 -Date of Discharge: 12/09/23
DC Dx:
Acute on chronic HFpEF, severe pulmonary hypertension, and valvular disease
Toxic metabolic encephalopathy transient likely secondary to hypoxemia vs. hypotension
Crest syndrome with scleroderma/lupus overlap
Hyperlipidemia
Stage IIIb chronic kidney disease
Anemia of chronic disease
Chronic urinary retention with a chronic Savage
Chronic thrombocytopenia
History of bilateral pulmonary embolism status post IVC filter
Hyponatremia/hypokalemia
Primary hypertension
ASSESSMENT & PLAN
Hemorrhagic shock due to painless acute HoB POS maroon colored stool GIB DDX: Angioectasia
ACBL severe anemic Hgb
HX chronic anemia , Fe def anemia
HX Thrombocytopenia
Chr prednisone dependent
- Blood consented, urgent T & C
- Hemoresuscitation : agree with 2 units of Blood Tx
- 1 unit of Platelet Tx for active GIB with Hemorrhagic shock
- NPO and IVF
- PPI gtt
- Stress dose IV hydrocortisone 100mg now and continuw
- agree with CTA A & P
- GI consult
- Heme consult
Other DDX include Sepsis ? UTI
- on NE gtt
- stress dose IV hydrocortisone 50mg IV
- on vancomycin and Zosyn
Severe hyperkalemia : suspect GI reabsorption of hemolyzed blood
- s/p ER Tx for Hyperkalemia
- f/u K in 3-6 hrs
At risk for consumptive acute on chronic thrombocytopenia
Active GIB with shock
- for platelet Tx
HX Chronic anemia
Prior iron studies c/w AOCD so no role for iron repletions
HX chronic Macrocytosis persists despite adequate B12 repletion
Known to Dr. Umair Baldwin
- B12 deficiency on B12 injections
- Heme consult evaluation
Chr Po prednisone dependent
HX Crest syndrome with scleroderma/lupus overlap
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
- Stress dose IN HC 100 mg tid in setting of Hemorrhagic shock
Essential HTN
- Hold all anti HTN Meds due to in shock pathophysiology
Hyponatremia likely 2/2 hypervolemia
- Hold diuresis
- IVF
- trend Na
Minimal-change kidney disease,
Lupus/scleroderma overlap,
Curretn eGFR is not c/w HX CKD listed before
Cr stable
- Stress dose IV Hydrocortisone in place of [employer] high dose prednisone
HX Chronic urinary retention with chronic Savage upon admission
Has had Savage since May 2023
Hyperlipidemia
- Hold home regimen
DVT prophylaxis SCDs in the setting of chronic thrombocytopenia and high risk of bleeding.
Full code
ICU
Total Critical Care Time_70 ____ minutes.
I was immediately available to the patient and staff. I personally examined, reviewed labs, diagnostic images/reports, interpretations, treatment plans, discussed patient care with other providers and family or caregivers (if patient is unable to
make decisions), entered orders as appropriate and documented the medical record.
[2024-01-04 15:14] LABS: Glucose - Point of Care 177 mg/dl (70-99)
[2024-01-04] MEDS: SOLU-CORTEF 100 MG IV (15:15)
[2024-01-04 15:24] LABS: INR 1.35; PT 16.9 Sec (11.4-14.6)
[2024-01-04] MEDS: LEVOPHED 250 IV ×3 (15:24→22:21)
[2024-01-04 15:25] LABS: APTT 20.3 Sec (23.4-35.0)
--- NOTE | 2024-01-04 15:52 | CON.GI ---
Addendum entered and electronically signed by La Edgar DO 01/04/24 17:55:
The patient was seen and examined by me independently in collaboration with the nurse practitioner.
Past medical history/social history/medications/allergies/family history reviewed.
Lab data and imaging data reviewed.
Meka Nash is a 73-year-old female with past medical history of minimal-change disease on prednisone 50 mg daily, severe pulmonary hypertension, scleroderma/lupus overlap, CREST syndrome, CHF, GERD, , hyperlipidemia, DVT, PE with subsequent IVC
filter placed (2007), LA grade D esophagitis (08/23/2023), large hiatal hernia, congested duodenal mucosa, single spot duodenum (unlikely angioectasia) treated with APC, anemia, thrombocytopenia admitted from [facility] with concerns for seizure
like activity and anorexia over the last 4 days. She was found to be hypotensive and tachycardic on arrival, requiring pressor support. On exam she is somewhat obtunded, history obtained from family by bedside.
RN in patient's room reports scant amounts of brown stool that tested heme positive. Hemoglobin 5.8, down from 8.7 on 12/06/2023, there was a concern for hemorrhagic shock, however, patient has had no bowel movements since arrival.
Her overall clinical picture is concerning for septic first cardiogenic shock. I do not have any concerns for hemorrhagic shock at this time. She has acute on chronic anemia, suspect she has some slow oozing from the GI tract in the setting of
thrombocytopenia. I do not feel that GI bleeding is driving her current presentation.
No plans for EGD or colonoscopy at this time. Recommend infectious workup, evaluation for seizure, cardiac and pulmonary evaluation.
-2 large-bore peripheral gauge IVs
-Monitor H&H
-Active T&S, transfuse for Hb <7; platelet transfusion if active GI bleeding (stool is heme positive)
-CT pending
-PPI IV BID
-correction of electrolyte abnormalities
-broad spectrum abx
-panculture
-IVF
Original Note:
Consultation
-
Date/Time Consultation Requested: 01/04/24 1600
Date/Time Consultation Performed: 01/04/24 1615
Requesting Provider: Hung Flood MD
Performing Provider: LUCY Donahue, Anna Edgar DO
Reason for Consultation: anemia concern for GI bleed, hypotension
Medical History
Chief Complaint / HPI
Chief Complaint: anemia
History of Present Illness:
73-year-old female with past medical history of minimal-change disease on prednisone 50 mg daily, severe pulmonary hypertension, scleroderma/lupus overlap, CREST syndrome, CHF, GERD, , hyperlipidemia, DVT, PE with subsequent IVC filter placed
(2007), LA grade D esophagitis (08/23/2023), large hiatal hernia, congested duodenal mucosa, single spot duodenum (unlikely angioectasia) treated with APC, anemia, thrombocytopenia, and osteoarthritis with recent admission. In November she presented
with weakness, fatigue and hypotension in setting of pulm HTN, and acute CHF. She was also noted with hypoxemia, hyponatremia , elevated troponin and seen by GI and heme for anemia and heme + stool. Per heme anemia likely multi factorial with
multiple illnesses, B12 deficiency, crest with GI bleeding, prior noted grade D esophagitis and prior noted AVM and to consider eventual bone marrow biopsy. She was seen by GI without overt bleeding and recommended OP follow up for colonoscopy.
She now presents with concern for seizure with decreased appetite for 4 days. On admission she is noted with hypotension requiring pressors, tachycardia, with no report of bleeding prior to admission and dark maroon heme + stool but also
reported as dark brown when temp taken rectally per staff and no stools since admission. She is also noted with leukocytosis, elevated lactate and hyperkalemia, ALTA, hyponatremia. She is also noted with hbg 5.8 with prior 8.7 on 12/05 with
platelets 51,000. She initially had decreased mentation but improvement with fluid resuscitation in ER.
At this time with family denies any odynophagia, dysphagia, nausea, vomiting, abdominal pain, constipation or rectal bleeding. 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
prior to or since admission. . She did have hx of EGD with push enteroscopy performed on 08/23/2023 that showed LA grade D esophagitis. Large hiatal hernia. No gross lesions in the entire stomach. Congested duodenal mucosa. Dilated lacteals were
found in the duodenum.A single spot with no bleeding in the duodenum. Unlikely angiectasia. Treated with APC. Congested jejunal mucosa.. Last colonoscopy 2008 pt recalls as normal.
Past Medical History
Past Medical History: CHF, GERD, HTN, Hypercholesterolemia and Other (DJD, DVT, PE, osteoarthritis, severe pulm HTN, pulm nodule, cystocele, rectocele, right hydronephrosis, scleroderma/lupus overlap,CREST syndrome, hiatal hernia, iron deficiency,
glaucoma, cataracts, anemia, overactive bladder, sepsis from UTI (05/2023), minimal change kidney disease )
Past Surgical History: Gynecological (hysterectomy), Orthopedic (R THR, L THR) and Other (IVC filter, sacrospinous ligament fixation, anterior and posterior colporrhaphy and perineoplasty, right renal bx/left renal bx)
Social History
Tobacco: Non-Smoker
Alcohol: None
Drug: None
Personal:
Living: Jail
Employment: Retired
Family History
Family History: Other (no family hx colon CA or polyps)
Allergies / Home Medications
Allergy/AdvReac Type Severity Reaction Status Date / Time
No Known Allergies Allergy Verified 07/12/23 12:25
�Medication �Instructions �Recorded
sildenafil (pulm.hypertension) 20 20 mg PO TID pulmonary hypertension 05/24/23
mg tablet
potassium chloride 20 mEq 40 meq (2 x 20 mEq) PO DAILY 09/09/23
tablet,extended release(part/cryst) supplement-hypokalemia 30 days #60
tabs
azelastine 137 mcg (0.1 %) nasal 1 spray intranasal BID Allergies 12/01/23
spray
collagenase clostridium histo. 250 1 applic topical DAILY sacral wound 12/01/23
unit/gram topical ointment (Santyl)
furosemide 40 mg tablet (Lasix) 80 mg PO BID Fluid 12/01/23
Retention/Swelling
prednisone 50 mg tablet 50 mg PO DAILY Autoimmune disorder 12/01/23
metolazone 2.5 mg tablet 2.5 mg PO TU #10 tabs 12/09/23
pantoprazole 40 mg tablet,delayed 40 mg PO BID #60 tabs 12/09/23
release
acetaminophen 325 mg tablet 650 mg PO Q6HPRN PRN mild pain/ 01/04/24
fever
atorvastatin 10 mg tablet 10 mg PO QPM High cholesterol 01/04/24
bisacodyl 10 mg rectal suppository 10 mg MD DAILYPRN PRN no bm 8 hrs 01/04/24
after mom
magnesium hydroxide 400 mg/5 mL 30 ml PO [id number] PRN no bm 2 days 01/04/24
oral suspension (Milk of MagnHilltop Connections)
metoprolol succinate 25 mg 12.5 mg PO HS 01/04/24
tablet,extended release 24 hr
metoprolol succinate 25 mg 25 mg PO DAILY 01/04/24
tablet,extended release 24 hr
midodrine 5 mg tablet 5 mg PO TID 01/04/24
sodium phosphates 19 gram-7 118 ml MD DAILYPRN PRN no bm 8 hrs 01/04/24
gram/118 mL enema (Fleet Enema) after dulcolax
tramadol 50 mg tablet 50 mg PO [id number] PRN severe pain 01/04/24
zinc oxide 20 % topical paste 1 ea topical DAILY sacral wound 01/04/24
zinc oxide 20 % topical paste 1 ea topical DAILYPRN PRN buttocks 01/04/24
soilage/dislodgement
Review of Systems
-
History Source: Patient and Family
Constitutional: Reports No Symptoms and Fatigue
EENT: Reports No Symptoms
Respiratory: Reports No Symptoms
Cardiac: Reports No Symptoms
Abdomen/GI: Reports Diarrhea and Other (per ER dark stool then brown heme + no reports of large volume bleeding per family or nursing staff since admission, decreased appetite x 4 days )
Musculoskeletal: Reports No Symptoms
Neurological: Reports Weakness
Hematologic/Lymphatic: Reports Bleeding (hx slow GI bleeding)
Vital Signs
Temp Pulse Resp BP Pulse Ox
97 F 103 21 74/48 96
01/04/24 13:33 01/04/24 15:15 01/04/24 15:15 01/04/24 15:15 01/04/24 13:33
Physical Exam
Exam
General: Other (pale appearing )
HEENT: Normocephalic and Anicteric
Respiratory: Clear
Cardiac: Other (tachy )
GI: Soft, Non Tender and Non Distended
Rectal: Other (dark stool and then brown reported heme +)
Musculoskeletal: No Clubbing and No Cyanosis
Skin: Warm and Dry
Neuro: Other (opens eyes to voice and answers most questions mentation improving since in ER. No further seizures noted per ER)
Psych: Calm
Results
WBC 17.2 10^3/uL (4.8-10.8) H 01/04/24 13:37
Hgb 5.8 g/dL (12.0-16.0) L* 01/04/24 13:37
Hct 18.5 % (37.0-47.0) L* 01/04/24 13:37
MCV 117.8 fL (81.0-99.0) H 01/04/24 13:37
Plt Count 51 10^3/uL (130-400) L 01/04/24 13:37
Absolute Neuts (auto) 14.2 10^3/uL (1.4-6.5) H 01/04/24 13:37
PT 16.9 Sec (11.4-14.6) H 01/04/24 14:59
INR 1.35 01/04/24 14:59
APTT 20.3 Sec (23.4-35.0) L 01/04/24 14:59
Sodium 128 mmol/L (135-145) L 01/04/24 13:37
Potassium 6.2 mmol/L (3.5-5.1) H* 01/04/24 13:37
Chloride 91 mmol/L (98-107) L 01/04/24 13:37
Carbon Dioxide 18 mmol/L (22-30) L 01/04/24 13:37
BUN 99 mg/dl (7-17) H 01/04/24 13:37
Creatinine 1.5 mg/dL (0.6-1.0) H 01/04/24 13:37
Calcium 8.9 mg/dl (8.4-10.2) 01/04/24 13:37
Total Bilirubin 1.5 mg/dl (0.2-1.3) H 01/04/24 13:37
AST 20 U/L (14-36) 01/04/24 13:37
ALT 24 U/L (0-35) 01/04/24 13:37
Alkaline Phosphatase 135 U/L (38-126) H 01/04/24 13:37
Diagnostic Image Results:
01/03 CT angio pending
01/03 CT head pending
01/03 CXR no acute pulm process moderate to large HH
Prior GI Procedures:
EGD/enteroscopy 08/23/23: ([facility]) - Dilated lacteals were found in the duodenum.
- A single spot with no bleeding in the duodenum.
Unlikely angiectasia. Treated with argon plasma
coagulation (APC).
- Congested jejunal mucosa. Biopsied.
Colonoscopy: Colonoscopy: Patient states in 2008, cannot remember the physician states it was normal.
Assessment / Plan
-
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
LA grade D esophagitis (08/23/2023), large hiatal hernia, congested duodenal mucosa, single spot duodenum (unlikely angioectasia) treated with APC, anemia, thrombocytopenia, and osteoarthritis with recent admission. In November she presented with
weakness, fatigue, and hypotension in setting of pulm HTN, and acute CHF. She was also noted with hypoxemia, hyponatremia , elevated troponin and seen by GI and heme for anemia and heme + stool. Per heme anemia likely multi factorial with
multiple illnesses, B12 deficiency, crest with GI bleeding, prior noted grade D esophagitis and prior noted AVM and to consider eventual bone marrow biopsy. She was seen by GI without overt bleeding and recommended OP follow up for colonoscopy.
She now presents with concern for seizure with decreased appetite for 4 days. On admission she is noted with hypotension requiring pressors, tachycardia, with no report of bleeding prior to admission and dark maroon heme + stool but also
reported as dark brown when temp taken rectally per staff and no stools since admission. She is also noted with leukocytosis, elevated lactate and hyperkalemia, ALTA, hyponatremia. She is also noted with hbg 5.8 with BUN of 99 and elevated creat
with prior 8.7 on 12/05 with platelets 51,000. She initially had decreased mentation but improvement with fluid resuscitation in ER.
-hypotension with need for pressors on admission
-concern for sepsis with fever, leukocytosis, elevated lactate
-tachycardia
-hyperkalemia
-anemia with dark stool then report brown in ER -- no noted large volume bleeding prior to admission
-seizure prior to admission
-chronic thrombocytopenia
-recent decreased appetite
-grade D esophagitis
-prior noted AVM
-HFrEF with recent admission
other
-GERD
-CKD
-minimal change disease
-severe pulm HTN
-scleroderma/lupus
-crest syndrome
-CHF
-hyperlipidemia
-DVT/PE with filter
-B12 deficiency
-hx GERD
-hypoalbuminemia
PLAN:
etiology of hypotension and tachycardia related to underlying sepsis, cardiopulm issue with severe pulm HTN vs other-- no reported large volume blood loss but some drop in hbg prior 7-8 range now 5.8 with rise in BUN with creat increase
pt also noted with large HH but no reports of vomiting prior to admission with concern for obstructive process as reports recent decreased appetite
agree with transfusion/fluid resuscitation
pressors for BP support
for CT to eval for bleeding and eval hernia
agree with sepsis work up with blood cx, urine, CXR to rule out other cause, abx given in ER
correct K per medical team
for pulm eval
monitor for recurrent seziure
cont PPI
hold EGD for now with recent concern for seizure but if sign of aggressive bleeding consider EGD and platelet transfusion -- pt was to consider OP colonoscopy with chronic anemia
if anemia unclear and no signs of aggressive bleeding heme consider bone marrow bx
updated family
-
-
Thank you for consultation and allowing me to participate in the patient's care. Please call the risk professional GI physician during the after hours with any questions or concerns.
[2024-01-04 16:23] LABS: Glucose - Point of Care 258 mg/dl (70-99)
--- NOTE | 2024-01-04 18:00 | PHA.VAN.IN ---
Assessment
- Assessment
Renal Function: Appears elevated from baseline (0.8)
Concomitant Antimicrobials: piperacillin/tazobactam
Plan
- Plan
Initial / Loading Dose: vanc 1500mg pending administration
Maintenance Regimen: dosing by level
Monitoring: random level 01/04 06
Pharmacokinetics Vancomycin I
- -
Patient Age: 73
Patient Sex: Female
Vancomycin Day #: 1
Indication: Other
Requesting Provider: Dr. Flood
Pertinent Antimicrobial Allergies:
no pertinent antimicrobial allergies
Height / Weight:
Height 5 ft 3 in
Actual Weight 68.1 kg
- Vital Signs / Lab Results
Temp Pulse Resp BP Pulse Ox
97.4 F 109 19 95/72 92
01/04/24 16:31 01/04/24 16:50 01/04/24 16:50 01/04/24 16:50 01/04/24 16:31
Lab Results - Hematology
01/04/24
13:37
WBC 17.2 H
Lab Results - Chemistry
01/04/24
13:37
BUN 99 H
Creatinine 1.5 H
Estimated Creat Clear 28
Albumin 3.2 L
01/04/24
13:37
Lactic Acid 7.4 H*
Lab Results - Urine
01/04/24
13:37
Urine Nitrite (Reflex) Negative
Leukocyte Esterase Rfl 2+ A
Urine WBC (Reflex) 3-5
Ur Squamous Epith Cells 0-2
Urine Bacteria (Reflex) Many A
--- NOTE | 2024-01-04 18:19 | CON.INTV ---
Consultation
Consultation Request
Date/Time Consultation Requested: 01/04/24
Date/Time Consultation Performed: 01/04/24
Medical History
-
Chief Complaint: Weakness + hypotension
History of Present Illness:
Patient is a 73 yo F who resides in an independent living facility with past medical history as below, who presented to the ED with weakness over the past 4 days and hypotension while being brought to the ED. Initial evaluation in the ED showed
wbc=17.1, hgb=5.8, plt=51, Ci=955, k=6.2, BUN=99, Cr=1.5, lactic aid >7. She was also tachycardic on admission (>110) and her BP dropped to 71/49 while in the ED. Heme stool test was positive. Patient received calcium gluconate, insulin, dextrose
and sodium bicarbonate while in the ED. Central line was placed and Levophed was started. Blood cultures were sent and patient has been started on vancomycin. CTA of the abdomen and pelvis shows no evidence for acute active gastrointestinal
hemorrhage, however , mild urothelial thickening and mild distention of the right ureter was seen suggesting ascending urinary tract infection. CT of head showed no acute abnormalities. Patient has been admitted to the ICU for closer monitoring
and pressor requirements.
At the time of my evaluation, patient denies any seizures, loss of consciousness, nausea, vomiting, abdominal pain, chest pain. Denies recent cough, shortness of breath, sore throat. States he has had the indwelling Savage catheter since February.
Does have a history of recurrent UTIs in the past. Mentions lightheadedness in the morning which is chronic and does not feel has worsened significantly during the past few days. However, she does mention decreased appetite and oral intake during
the past 4 days. Denies any fall events.
PMH: minimal change disease, pulmonary hypertension, scleroderma/lupus overlap, CREST syndrome, CHF, CKD, GERD, hyperlipidemia, DVT, PE with subsequent IVC filter placed (2007), LA grade D esophagitis (08/23/2023), large hiatal hernia, chronic anemia
and chronic thrombocytopenia, chronic indwelling Savage catheter
EGD (08/23/23): grade D esophagitis, large hiatal hernia, no gross lesions in the entire stomach. Congested duodenal mucosa. Dilated lacteals were found in the duodenum. A single spot with no bleeding in the duodenum. Unlikely angiectasia.
Past Medical History
Past Medical History: Other (See above)
Social History
Tobacco: Non-smoker
Alcohol: None
Drug: None
Personal:
Living: [facility]
Family History
Family History: Reviewed & Not Pertinent
Allergies / Home Medications
Allergies
Allergy/AdvReac Type Severity Reaction Status Date / Time
No Known Allergies Allergy Verified 07/12/23 12:25
Home Medications
�Medication �Instructions �Recorded �Confirmed �Last Taken �Type
sildenafil (pulm.hypertension) 20 20 mg PO TID pulmonary hypertension 05/24/23 01/04/24 08/13/23 History
mg tablet
potassium chloride 20 mEq 40 meq (2 x 20 mEq) PO DAILY 09/09/23 01/04/24 Unknown Rx
tablet,extended release(part/cryst) supplement-hypokalemia 30 days #60
tabs
azelastine 137 mcg (0.1 %) nasal 1 spray intranasal BID Allergies 12/01/23 01/04/24 Unknown History
spray
collagenase clostridium histo. 250 1 applic topical DAILY sacral wound 12/01/23 01/04/24 Unknown History
unit/gram topical ointment (Santyl)
furosemide 40 mg tablet (Lasix) 80 mg PO BID Fluid 12/01/23 01/04/24 Unknown History
Retention/Swelling
prednisone 50 mg tablet 50 mg PO DAILY Autoimmune disorder 12/01/23 01/04/24 Unknown History
metolazone 2.5 mg tablet 2.5 mg PO TU #10 tabs 12/09/23 01/04/24 Unknown Rx
pantoprazole 40 mg tablet,delayed 40 mg PO BID #60 tabs 12/09/23 01/04/24 Unknown Rx
release
acetaminophen 325 mg tablet 650 mg PO Q6HPRN PRN mild pain/ 01/04/24 01/04/24 Unknown History
fever
atorvastatin 10 mg tablet 10 mg PO QPM High cholesterol 01/04/24 01/04/24 Unknown History
bisacodyl 10 mg rectal suppository 10 mg OR DAILYPRN PRN no bm 8 hrs 01/04/24 01/04/24 Unknown History
after mom
magnesium hydroxide 400 mg/5 mL 30 ml PO [id number] PRN no bm 2 days 01/04/24 01/04/24 Unknown History
oral suspension (Milk of Magnesia)
metoprolol succinate 25 mg 12.5 mg PO HS 01/04/24 01/04/24 Unknown History
tablet,extended release 24 hr
metoprolol succinate 25 mg 25 mg PO DAILY 01/04/24 01/04/24 Unknown History
tablet,extended release 24 hr
midodrine 5 mg tablet 5 mg PO TID 01/04/24 01/04/24 Unknown History
sodium phosphates 19 gram-7 118 ml OR DAILYPRN PRN no bm 8 hrs 01/04/24 01/04/24 Unknown History
gram/118 mL enema (Fleet Enema) after dulcolax
tramadol 50 mg tablet 50 mg PO [id number] PRN severe pain 01/04/24 01/04/24 Unknown History
zinc oxide 20 % topical paste 1 ea topical DAILY sacral wound 01/04/24 01/04/24 Unknown History
zinc oxide 20 % topical paste 1 ea topical DAILYPRN PRN buttocks 01/04/24 01/04/24 Unknown History
soilage/dislodgement
Review of Systems
-
History Source: Patient
All other systems: Negative unless noted
Constitutional: Fatigue
Abdomen/GI: Diarrhea (Loose stools)
: Other (Denies any urinary symptoms)
Vitals / Labs / Diagnostic Testing
Vital Signs
Temp Pulse Resp BP Pulse Ox
97.7 F 113 26 109/76 92
01/04/24 18:11 01/04/24 18:11 01/04/24 18:11 01/04/24 18:11 01/04/24 16:31
Laboratory Results
01/04/24 01/04/24
13:52 14:59
PT Cancelled 16.9 H
INR Cancelled 1.35
APTT Cancelled 20.3 L
Diagnostic Testing:
Physical Exam
-
HEENT: Other (Pale, dry mucous membranes)
Cardiovascular: S1/S2 and Regular Rhythm
Respiratory: Clear and Non-Labored Respirations
GI: Soft, Non Distended, Non Tender and Normal Bowel Sounds
Neurology: Awake, Alert, Oriented and AO x 3
Skin: Other (Cold to the touch, diffuse petechia/purpura, stage 2 sacral pressure ulcer)
General: Chills (Rigors)
Assessment
-
73-year-old female with past medical history as above, with history of recurrent UTIs and indwelling Savage catheter since February, who presents with elevated white count, lactic acid, and hemodynamics type instability requiring pressors most likely
suggesting septic shock.
Current vital signs are as follows: BP 109/79, OR 113, RR 23, O2sat 94 on RA. Is receiving 20 mcg levophed.
#Septic shock most likely in the setting of UTI
Central line and 2 large-bore peripheral gauge IVs obtained
Continue pressors as needed to keep MAP>65
Continue hydrocortisone 50mg IV
Continue vancomycin until blood culture/urine culture are resulted
Currently has no respiratory distress and on room air -maintain SpO2 more than 90%
Head of bed elevation
Fall precautions
Status post 1 unit PRBC-transfuse to keep hemoglobin > 7
Trend CBC, Temps, BMP, lactic acid
# Acute on chronic anemia
Continue PPI
Possibly consider endoscopy/colonoscopy after patient is stabilized
Continue to trend H&H
Keep n.p.o. for now
# Hyperkalemia
Likely in the setting of underlying sepsis
EKG shows sinus tachycardia and nonspecific T wave abnormalities
Calcium gluconate, insulin, dextrose and sodium bicarbonate given in ED
Will trend K levels
#Sacral pressure ulcer
No signs of active infection/discharge
Dressing applied
[2024-01-04 19:04] LABS: Glucose - Point of Care 184 mg/dl (70-99)
[2024-01-04] MEDS: VANCOCIN 530 MG IV (19:34)
--- NOTE | 2024-01-04 19:39 | PTCARENOTE ---
Received pt from ER into ICU rm [id number] @ approx 1730. Max assisted from stretcher to bed. Drowsy, awakens to verbal stim; Ox3; denies pain. ST on monitor. SpO2 98% on RA. Afebrile. +1 anasarca. Strict NPO status maintained. Inc small dark/brown
BM. Chronic Savage in place w joi urine. St 3 pressure ulcer on sacrum, WOC superintendent service'd. B/L heels blanchable red. Mottled LE. L fem TL w 2 unit PRBC, protonix gtt, and levo gtt- see flow sheet. Unable to obtain admission labs d/t blood transfusion
in progress; Dr. Goodrich aware. Family updated @ bedside. Report given to stacy monteiro RN.
--- NOTE | 2024-01-04 20:00 | PTCARENOTE ---
Received pt via handoff. Pt AAOx3, generalized weakness throughout but able to LOZA. NSR, with trace edema in all extremities. Pulses weak on palpation but radial, pt and dp present. Legs cool mottled to touch. 99% RA, shallow breathes and diminished
throughout. Hypoactive bowel sounds in all 4Q, stomach round and obese. Chronic Savage CDI draining cloudy yellow urine. Stage 3 wound on sacrum, heals blanchable red, protective foams put on all. Left femoral triple lumen in place with PRBC, Levo
and Protonix gtts running see flowsheet. Call almaraz at bedside.
[2024-01-04 20:11] LABS: Glucose - Point of Care 145 mg/dl (70-99)
[2024-01-04] MEDS: SOLU-CORTEF 50 MG IV (21:50)
[2024-01-04 22:06] LABS: Glucose - Point of Care 154 mg/dl (70-99)
[2024-01-04 22:27] LABS: Hematocrit 28.6 % (37.0-47.0); Hemoglobin 10.3 g/dL (12.0-16.0); Mean Corpuscular Hgb 33.8 pg (27.0-31.0); Mean Corpuscular Volume 93.8 fL (81.0-99.0); Mean Platelet Volume 11.4 fL (7.4-10.4); Platelet Count 75 10^3/uL (130-400); Red Blood Cell Count 3.05 10^6/uL (4.20-5.40); Red Cell Dist. Width 20.3 % (11.5-14.5); White Blood Cell Count 15.5 10^3/uL (4.8-10.8)
[2024-01-04 22:33] LABS: Potassium 3.4 mmol/L (3.5-5.1)
[2024-01-04 22:37] LABS: Blood Urea Nitrogen 75 mg/dl (7-17); Calcium 8.4 mg/dl (8.4-10.2); Carbon Dioxide 24 mmol/L (22-30); Chloride 94 mmol/L (98-107); Estimated Creatinine Clearance 36 ml/min; Glucose 194 mg/dl (70-99); Lactic Acid 4.2 mmol/L (0.7-2.0); Magnesium 1.3 mg/dl (1.6-2.3); Potassium 3.4 mmol/L (3.5-5.1); Sodium 132 mmol/L (135-145); eGFR 48.39
[2024-01-04] MEDS: MAGNESIUM SULFATE 50 IV (23:02)
[2024-01-04] MEDS: KCL 20 MEQ PO (23:03)
[2024-01-04] MEDS: NSS 1000 IV (23:51)
[2024-01-05] VITALS (85 sets, daily range): BP systolic 72–119; BP diastolic 38–85; BMI 25.3
--- NOTE | 2024-01-05 00:11 | PTCARENOTE ---
All systems reassessed. IV fluids started, hygiene performed, call almaraz at bedside.
[2024-01-05] MEDS: PROTONIX 100 IV (00:23)
[2024-01-05 00:43] LABS: Glucose - Point of Care 144 mg/dl (70-99)
[2024-01-05 01:09] LABS: INR 1.13; PT 14.8 Sec (11.4-14.6)
[2024-01-05] MEDS: ZOSYN 50 IV ×4 (01:57→19:39)
[2024-01-05] MEDS: SOLU-CORTEF 50 MG IV ×2 (03:34→11:06)
[2024-01-05 03:59] LABS: PT 14.5 Sec (11.4-14.6)
[2024-01-05] MEDS: TYLENOL 650 MG PO ×3 (03:59→18:13)
--- NOTE | 2024-01-05 04:00 | PTCARENOTE ---
All systems reassessed. Pt c/o sacrum pain from pressure injury. [employer] Alberts notified and tylenol was given. Will reassess in 30 minutes.
[2024-01-05 04:03] LABS: Hematocrit 28.4 % (37.0-47.0); Hemoglobin 10.2 g/dL (12.0-16.0); Mean Corp Hgb Conc. 35.9 g/dL (33.0-37.0); Mean Corpuscular Hgb 33.9 pg (27.0-31.0); Mean Corpuscular Volume 94.4 fL (81.0-99.0); Mean Platelet Volume 12.2 fL (7.4-10.4); Platelet Count 49 10^3/uL (130-400); Red Blood Cell Count 3.01 10^6/uL (4.20-5.40); Red Cell Dist. Width 21.4 % (11.5-14.5); White Blood Cell Count 15.3 10^3/uL (4.8-10.8)
[2024-01-05 04:07] LABS: ALT (SGPT) 22 U/L (0-35); AST (SGOT) 19 U/L (14-36); Alkaline Phosphatase 151 U/L (38-126); Blood Urea Nitrogen 72 mg/dl (7-17); Calcium 8.6 mg/dl (8.4-10.2); Carbon Dioxide 26 mmol/L (22-30); Chloride 95 mmol/L (98-107); Direct Bilirubin 0.6 mg/dl (0.0-0.4); Estimated Creatinine Clearance 36 ml/min; Glucose 166 mg/dl (70-99); Magnesium 1.7 mg/dl (1.6-2.3); Phosphorus 4.4 mg/dl (2.5-4.5); Potassium 3.1 mmol/L (3.5-5.1); Sodium 134 mmol/L (135-145); Total Bilirubin 3.2 mg/dl (0.2-1.3); Total Protein 5.1 g/dl (6.3-8.2); eGFR 48.39
[2024-01-05 04:10] LABS: Vancomycin Random 23.8 ug/ml
[2024-01-05] MEDS: KCL 270 MEQ IV (04:39)
[2024-01-05] MEDS: MAGNESIUM SULFATE 102 GRAMS IV (04:39)
[2024-01-05 05:34] LABS: Glucose - Point of Care 135 mg/dl (70-99)
[2024-01-05 05:35] LABS: Lactic Acid 2.5 mmol/L (0.7-2.0)
[2024-01-05] MEDS: LEVOPHED 250 IV ×2 (06:22→20:24)
--- NOTE | 2024-01-05 07:36 | W.PN.HOSP.TC ---
Today's Communication/Plan
-
* Continue piperacillin-tazobactam.
* IV hydration and pantoprazole BID.
* Trend CBC and CMP.
* Wean pressors.
* Transfuse as needed.
Assessment / Plan
Assessment / Plan
Assessment
Meka Nash, age 73, was brought to the hospital from [facility] on 01-04-24 with progressive fatigue, reduced oral intake and altered mental status. In the emergency, she was found to have a hemoglobin of 5.8, lactic acid of 7.4, potassium of
6.2, platelet count of 51 and UA suspicious for infection. She had hypotensive unresponsive to fluids, and required pressors. She received 2 units of pRBC and was started on norepinephrine. Admitted to the ICU with hemorrhagic vs. septic shock, vs.
mixed.
Impression and plan
Septic shock secondary to acute urinary tract infection
- Possibly in addition to hemorrhagic shock.
- CT AP suspicious for ascending UTI.
- Afebrile so far; vitals improving.
- Urine and blood cultures pending.
- Wean pressors as tolerated.
- Maintain Savage.
- Continue piperacillin-tazobactam and IV hydration.
- Infectious disease consultation.
Hemorrhagic shock secondary to acute painless gastrointestinal bleed
Acute blood loss on chronic anemia
Acute on chronic thrombocytopenia
- Heme+ stools this admission, and prior history of angioectasia.
- Status-post 2 units of pRBC and 1 unit of platelets in the emergency.
- Follow CBC.
- Transfuse for hemoglobin <7 and platelet <15.
- Continue IV pantoprazole BID.
- Gastroenterology following.
Metabolic acidosis secondary to above
- Trend lactic acid.
- IV hydration.
Dyskalemia
- Hyperkalemia on presentation treated with insulin, calcium gluconate, D50 and sodium bicarbonate.
- Hypokalemia after admission with repletion; replete to keep potassium >4.
Acute kidney injury
- IV hydration.
- Follow BMP.
Hyperbilirubinemia
- Unlikely transfusion-related.
- Trend bilirubin.
Chronic urinary retention
Chronic indwelling Savage catheter
- Savage status since February 2023.
- Last changed in the emergency on 01-04-24.
Infrarenal IVC filter thrombosis
History of bilateral pulmonary embolism
- Not on anticoagulation; contraindicated with thrombocytopenia currently.
- Filter placed around 2009.
- Was not removed when patient was lost to follow-up, according to daughter.
- Vascular surgery consultation.
Chronic bicytopenia
- New-onset worsening anemia and thrombocytopenia.
- Baseline hemoglobin around 8.
- Followed at [facility]; on-going discussions about a potential bone marrow biopsy.
Scleroderma/SLE
- On prednisone 50 mg daily at the time of this admission.
- Stress dose steroids for now.
Chronic heart failure with preserved ejection fraction
Valvular heart disease
Pulmonary hypertension
- Not in acute flare.
- Hold diuretics.
Essential hypertension
- Hold metoprolol.
Hyperlipidemia
- Continue atorvastatin.
Gastroesophageal reflux disease
Hiatal hernia
- IV pantoprazole.
Chronic constipation
- Dulcolax and polyethylene glycol as needed.
Sacral wound, stage III
- Possibly related to fecal incontinence and/or pressure.
- Wound care following.
Thromboprophylaxis
- Sequential compression devices.
Code status
- Full.
Anticipated Discharge: > 48 hours
Subjective/Interval History
-
Date of Service: January 05, 2024
Feeling significantly improved. Weaning off pressors.
Objective Data
-
Labs:
Laboratory Results
01/04/24 01/04/24 01/04/24
17:43 22:11 22:11
WBC 15.5 H
Hgb Cancelled 10.3 L D
Hct Cancelled 28.6 L
Plt Count 75 L D
PT Cancelled
INR Cancelled
Sodium 132 L
Potassium 3.4 L D 3.4 L
Chloride 94 L
Carbon Dioxide 24
BUN 75 H
Creatinine 1.2 H
Glucose 194 H
Calcium 8.4
Total Bilirubin
AST
ALT
Alkaline Phosphatase
01/04/24 01/05/24 01/05/24
23:43 00:39 03:15
WBC 15.3 H
Hgb Cancelled 10.2 L
Hct Cancelled 28.4 L
Plt Count 49 L D
PT 14.8 H 14.5
INR 1.13 1.10
Sodium 134 L
Potassium 3.1 L
Chloride 95 L
Carbon Dioxide 26
BUN 72 H
Creatinine 1.2 H
Glucose 166 H
Calcium 8.6
Total Bilirubin 3.2 H D
AST 19
ALT 22
Alkaline Phosphatase 151 H
Vital Signs:
Vital Signs
Temp Pulse Resp BP Pulse Ox
97.7 F 97 19 109/70 98
01/05/24 07:25 01/05/24 04:45 01/05/24 04:45 01/05/24 04:45 01/05/24 04:45
I&O
01/04/24 01/05/24 01/06/24
06:59 06:59 06:59
Intake Total 2990.5 / 2990.5
Output Total 1550 / 1550
Balance 1440.5 / 1440.5
Review of Systems
-
History Source: Patient and Family (daughter)
Constitutional: Reports Fatigue (improved)
EENT: Reports No Symptoms Reported
Respiratory: Reports No Symptoms
Cardiac: Reports No Symptoms
Abdomen/GI: Reports No Symptoms
Breast: Reports No Symptoms
Genitourinary: Reports No Symptoms
Musculoskeletal: Reports No Symptoms
Skin: Reports No Symptoms
Neuro: Reports No Symptoms
Endocrine: Reports No Symptoms
Hematologic / Lymphatic: Reports No Symptoms
Allergy / Immunology: Reports No Symptoms
Physical Exam
-
General: No Apparent Distress and Comfortable
HEENT: Normocephalic, Atraumatic, Moist Mucous Membranes, Anicteric and No Ptosis
Respiratory: Clear to Auscultation and Non Labored Respirations
Cardiac: Regular Rhythm and S1/S2
GI: Soft, Nontender and Nondistended
Genito-urinary: No Costovertebral Tender
Musculoskeletal: No Clubbing and No Cyanosis
Skin: Warm, Dry and IV Access / Catheter Site
Neuro: Awake, Alert, Oriented and No Motor Deficits
Hematologic / Lymphatic: No Lymphadenopathy
Psych: Calm and Intact Judgement/Insight
--- NOTE | 2024-01-05 07:55 | W.PN.GI.CBS2 ---
Addendum entered and electronically signed by La Edgar DO 01/05/24 13:45:
The patient was seen and examined by me independently in collaboration with the nurse practitioner.
Past medical history/social history/medications/allergies/family history reviewed.
Lab data and imaging data reviewed.
Patient seen in follow-up, much more awake and alert today, feels much more like herself. She received 2 units of PRBC yesterday, hemoglobin improved to 10.2, repeat was 9.1. No episodes of melena or hematochezia overnight. She is currently being
treated for septic shock, suspected urinary source, being covered with broad-spectrum antibiotics. She has persistent thrombocytopenia, worse than her baseline, supposed to follow-up with hematology as an outpatient for bone marrow biopsy, not yet
completed as she had just recently left the hospital.
At this point I have little for active GI bleeding. No plans for EGD or colonoscopy at this time. Management of sepsis per primary team. Mild elevation in liver enzymes could be secondary to sepsis vs. DILI vs. less likely hemolysis given normal
AST vs. biliary pathology. Normal appearing gallbladder on CT scan, no biliary ductal dilatation. She does have a large paraesophageal hernia, with most of the stomach inside the sac, no evidence of volvulus. Small amount of air in the right
intrarenal collecting system and right renal pelvis (either secondary to emphysematous pyelitis or recent instrumentation). Mild debris in the distended right renal pelvis. Moderate distention of the right renal pelvis and right upper pole
intrarenal calyces. Mild urothelial thickening and mild distention of the right ureter suggesting ascending urinary tract infection.
Trend LFTs
Trend CBC
Monitor stool for color (please do not check for occult blood, she is likely to have mild oozing and will always be positive..)
GI will sign off. If concern for active GI bleeding or worsening LFTs, please call back.
Addendum entered and electronically signed by LUCY Triplett 01/05/24 08:20:
pt with some rise in bili 1.5 to 3.2 with stable D bili 0.6, AST 19, ALT 22, alk phos 151
cont to trend
CTA 01/03 with liver cyst, no abnormal GB distention, wall thickening or fluid, no biliary dilatation
Original Note:
Today's Communication / Plan
-
etiology of hypotension and tachycardia related to underlying sepsis ? UTI vs other- doubt hemorrhagic shock as not stool prior or after admission, CTA neg for bleeding
Pt may have slow GI bleed with hx AVM/hx esophagitis large HH with heme + stool but hbg now up to 10.2 s/p 2 units PRBC's
consider EGD if signs of active bleeding but hold for now , consider eventual OP colonoscopy
cont work up per hospitalist team for infectious process, blood/urine cx pending, CTA suggestive of possible UTI, CXR no pulm process noted
will add clear diet, advance as tolerated
trend hbg transfuse as needed
CTA as noted
correct K per medical team
monitor for recurrent seizure
cont PPI
for heme eval with continued thrombocytopenia- heme was considering eventual bone marrow bx
updated family 01/03
Assessment / Plan
-
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
LA grade D esophagitis (08/23/2023), large hiatal hernia, congested duodenal mucosa, single spot duodenum (unlikely angioectasia) treated with APC, anemia, thrombocytopenia, and osteoarthritis with recent admission. In November she presented with
weakness, fatigue, and hypotension in setting of pulm HTN and acute CHF. She was also noted with hypoxemia, hyponatremia , elevated troponin and seen by GI and heme for anemia and heme + stool. Per heme anemia likely multi factorial with
multiple illnesses, B12 deficiency, crest with GI bleeding, prior noted grade D esophagitis and prior noted AVM and to consider eventual bone marrow biopsy. She was seen by GI without overt bleeding and recommended OP follow up for colonoscopy.
She now presents with concern for seizure with decreased appetite for 4 days. On admission she is noted with hypotension requiring pressors, tachycardia, with no report of bleeding prior to admission and dark maroon heme + stool but also
reported as dark brown when temp taken rectally per staff and no stools since admission. She is also noted with leukocytosis, elevated lactate and hyperkalemia, ALTA, hyponatremia. She is also noted with hbg 5.8 with BUN of 99 and elevated creat
with prior 8.7 on 12/05 with platelets 51,000. She initially had decreased mentation but improvement with fluid resuscitation in ER.
01/03 CTA
1. No CTA evidence for acute active gastrointestinal hemorrhage.
2. Severe diverticulosis in the sigmoid colon.
3. Severe chronic bilateral renal disease.
4. Small amount of air in the right intrarenal collecting system and right renal pelvis (either secondary to emphysematous pyelitis or recent instrumentation). Mild debris in the distended right renal pelvis. Moderate distention of the right renal
pelvis and right upper pole intrarenal calyces. Mild urothelial thickening and mild distention of the right ureter suggesting ascending urinary tract infection.
5. Savage catheter in moderate air in the urinary bladder.
6. Infrarenal IVC filter containing thrombus.
7. Moderate to severe pancreatic parenchymal atrophy.
8. Large hiatal hernia.
9. Mild cardiomegaly.
10. Severe discogenic degenerative disease and facet joint arthrosis in the lower lumbar spine.
11. Bilateral total hip arthroplasties in place.
-hypotension with need for pressors on admission
-concern for sepsis with fever, leukocytosis, elevated lactate- trending down
-hyperkalemia
-acute on chronic anemia with dark stool then report brown in ER -- no noted large volume bleeding noted prior or after admission
-CTA suggestive of possible UTI
-?seizure prior to admission
-chronic thrombocytopenia of unclear etiology
-recent decreased appetite
- hx grade D esophagitis and large HH
-prior noted AVM
-HFrEF with recent admission
other
-GERD
-CKD
-minimal change disease
-severe pulm HTN
-scleroderma/lupus
-crest syndrome
-CHF
-hyperlipidemia
-DVT/PE with filter
-B12 deficiency
-hx GERD
-hypoalbuminemia
PLAN:
etiology of hypotension and tachycardia related to underlying sepsis ? UTI vs other- doubt hemorrhagic shock as not stool prior or after admission, CTA neg for bleeding
Pt may have slow GI bleed with hx AVM/hx esophagitis large HH with heme + stool but hbg now up to 10.2 s/p 2 units PRBC's
consider EGD if signs of active bleeding but hold for now , consider eventual OP colonoscopy
cont work up per hospitalist team for infectious process, blood/urine cx pending, CTA suggestive of possible UTI, CXR no pulm process noted
will add clear diet, advance as tolerated
trend hbg transfuse as needed
CTA as noted
correct K per medical team
monitor for recurrent seizure
cont PPI
for heme eval with continued thrombocytopenia- heme was considering eventual bone marrow bx
updated family 01/03
Subjective
Subjective
Date of Service: January 05, 2024
no stools overnight, NPO
Objective
Data Reviewed
Laboratory Data:
Laboratory Results
01/05/24 03:15
01/05/24 03:15
Laboratory Results
PT 14.5 Sec (11.4-14.6) 01/05/24 03:15
INR 1.10 01/05/24 03:15
APTT 20.3 Sec (23.4-35.0) L 01/04/24 14:59
Phosphorus 4.4 mg/dl (2.5-4.5) 01/05/24 03:15
Magnesium 1.7 mg/dl (1.6-2.3) 01/05/24 03:15
Total Bilirubin 3.2 mg/dl (0.2-1.3) H D 01/05/24 03:15
AST 19 U/L (14-36) 01/05/24 03:15
ALT 22 U/L (0-35) 01/05/24 03:15
Alkaline Phosphatase 151 U/L (38-126) H 01/05/24 03:15
Vital Signs and I&O:
Vital Signs
Temp Pulse Resp BP Pulse Ox
97.7 F 97 19 109/70 98
01/05/24 07:25 01/05/24 04:45 01/05/24 04:45 01/05/24 04:45 01/05/24 04:45
I&O
01/04/24 01/05/24 01/06/24
06:59 06:59 06:59
Intake Total 2990.5 / 2990.5
Output Total 1550 / 1550
Balance 1440.5 / 1440.5
Physical Exam
Physical Exam
HEENT: Anicteric and Moist mucous membranes
Cardiology: Normal Sinus Rhythm
Pulmonary: Clear
GI: Soft, Non Distended and Non Tender
Neuro: Non Focal (more awake and alert )
--- NOTE | 2024-01-05 08:05 | PTCARENOTE ---
Assumed care of pt at 0715 following shift report. Pt resting quietly in bed watching TV. Levophed gtt infusing at 7 mcg/min and Protonix gtt at 8mg/hr via Lt femoral TLC. Pt alert, oriented and conversing appropriately. Denies c/o pain other than
reports positional sacral pain at site of pressure injury- denies any at this time. Remains on RA w/ POx 98%. Physical assessment completed as documented. Comfort care provided and safe environment maintained.
[2024-01-05] MEDS: PROTONIX IV 40 MG IV ×2 (08:28→19:39)
[2024-01-05] MEDS: NSS (PRESERVATIVE FREE) 10 ML IV ×2 (08:28→19:39)
--- NOTE | 2024-01-05 08:53 | PHA.VAN.FU ---
Vancomycin Assessment / Plan
- Assessment
Renal Function: Stable
In the past 24 hrs, patient has been: Afebrile
Concomitant Antimicrobials: piperacillin/tazobactam
- Assessment - Therapeutic Drug Monitoring
Random Level: 23.8 - drawn ~7.5H after 1500mg loading dose
- Dosing Plan
Dosing by Level: Hold off on dosing today
- Monitoring Plan
Random Level: 01/05 0600
- Follow Up
Pharmacy will continue to follow.
Vancomycin Follow UP
- -
Patient Age: 73
Patient Sex: Female
Vancomycin Day #: 2
Indication: Other
Requesting Provider: Dr. Flood
Pertinent Antimicrobial Allergies:
no pertinent antimicrobial allergies
Height / Weight:
Height 5 ft 3 in
Actual Weight 64.8 kg
- Vital Signs / Lab Results
Temp Pulse Resp BP Pulse Ox
97.7 F 97 19 109/70 98
01/05/24 07:25 01/05/24 04:45 01/05/24 04:45 01/05/24 04:45 01/05/24 04:45
Lab Results - Hematology
01/04/24 01/04/24 01/05/24
13:37 22:11 03:15
WBC 17.2 H 15.5 H 15.3 H
Lab Results - Chemistry
01/04/24 01/04/24 01/05/24
13:37 22:11 03:15
BUN 99 H 75 H 72 H
Creatinine 1.5 H 1.2 H 1.2 H
Estimated Creat Clear 28 36 36
Albumin 3.2 L 3.0 L
01/04/24 01/04/24 01/05/24
13:37 22:11 04:53
Lactic Acid 7.4 H* 4.2 H* 2.5 H
Lab Results - Urine
01/04/24
13:37
Urine Nitrite (Reflex) Negative
Leukocyte Esterase Rfl 2+ A
Ur Squamous Epith Cells 0-2
Therapeutic Drug Monitoring
Random Vancomycin 23.8 ug/ml 01/05/24 03:15
[2024-01-05 08:54] LABS: Lactic Acid 2.1 mmol/L (0.7-2.0)
--- NOTE | 2024-01-05 09:06 | W.PN.INTV ---
Today's Communication / Plan
Recommendations
Continue Protonix IV twice daily
Taper pressor as tolerated
Continue to trend H&H, plt, WBC, electrolytes, LFT
Switch IV steroids to oral prednisone
Advance diet as tolerated
Assessment
-
73-year-old female with extensive PMH (see prior note), with history of recurrent UTIs in the past and indwelling Savage catheter since February (due to overactive bladder?), who presented from [facility] with suspected seizure (?) and
weakness/decreased oral intake for the past 4 days.
Initial labs in ED showed elevated white count and lactic acid, worsening anemia and thrombocytopenia compared to baseline, and hemodynamic instability requiring pressors.
When I visited the patient this AM, vital signs were as follows: BP 99/65 (on 7mcg levophed), OK 110, RR 23, O2sat 94 on RA. Afebrile.
# Hemorrhagic shock with component of sepsis most likely in the setting of UTI
Patient has central line and 2 large-bore peripheral gauge IVs
Will try to wean pressors as tolerated-Maintain MAP>65
Receiving 1 lit N/S @ 75cc/hr
Switched IV hydrocortisone to oral prednisone
Leukocytosis improved-lactate downtrended (2.1)-AG currently 14
Continue Vancomycin +Zosyn until blood culture/urine culture are resulted
Preliminary U/C suggests possible contamination-unclear whether patient's Savage was changed in ED-will replace with a new Savage and repeat U/A and U/C
Blood culture pending
Chest x-ray and head CT normal-CTA suggests ascending urinary tract infection but no evidence of active GI bleeding
Currently has no respiratory distress and saturating well on room air -maintain SpO2 more than 90%
Status post 2 unit PRBC-transfuse to keep hemoglobin > 7
Status post 1 unit platelets-plts seem to be downtrending after an initial increase to 75- will cont to monitor plt count-will transfuse 1 unit to keep platelets> 50
Trend CBC, Temps, BMP, lactic acid
Currently on clear liquids-may advance diet as tolerated
Head of bed elevation
Fall precautions
# Acute on chronic anemia
No melena/hematochezia/hematemesis since ICU admission
BUN improving but still remains moderately elevated
Hemoglobin 10.2 s/p 2 units pRBC- Repeat Hgb 9.1
Continue PPI IV BID
Possibly consider endoscopy/colonoscopy after patient is stabilized
Continue to trend H&H
Appreciate GI
#indirect hyperbilirubinemia
Will continue to trend LFT, bili
No signs of transfusion-related reaction
Direct Jorge negative
# Hyperkalemia
Resolved-likely in the setting of underlying sepsis
Potassium was 3.1 this AM. Patient received 40 mEq KCl.
Will give another 40meq Elixir and check K levels this afternoon
# Hyponatremia, hypochloremia
Resolved-likely related to reduced oral intake
# Hypomagnesemia
Resolved
#Sacral pressure ulcer
No signs of active infection/discharge
Dressing applied-single dose of Tylenol given for pain overnight
Wound care
# DVT prophylaxis
SCD
Subjective Dataa
Subjective Data
Date of Service:
Date of Service: January 05, 2024
Subjective:
No significant overnight events. Denies chest pain, abdominal pain, nausea, vomiting. Has not had any stool since ICU admission. Has had good output and urine in bag does not look cloudy. Patient remained normotensive and not tachycardic for
most of the night (on Levophed). Remained afebrile. No respiratory distress and remains on room air. Does not offer any complaints except mild back pain at site of ulcer. Overall, feels very much better than yesterday and less fatigued.
Review of Systems
General: Satisfactory Appetite
Objective Data
Data Reviewed
Vital Signs / I&O / Oxygen:
Vital Signs
Temp Pulse Resp BP Pulse Ox
97.7 F 97 19 109/70 98
01/05/24 07:25 01/05/24 04:45 01/05/24 04:45 01/05/24 04:45 01/05/24 04:45
Intake and Output
01/04/24 01/05/24 01/06/24
06:59 06:59 06:59
Intake Total 2990.5 / 2990.5
Output Total 1550 / 1550
Balance 1440.5 / 1440.5
SaO2 98
Physical Exam
General: Respiratory Distress (Negative), Comfortable and Good Appetite
HEENT: Normocephalic, Anicteric, Moist Mucous Membranes and Other (Pale)
Cardiovascular: S1-S2, Regular Rhythm, Peripheral Edema (2+ bilateral pitting edema) and Other (Extremities warm to touch)
Respiratory: Clear and Non-Labored Respirations
GI: Soft, Non Distended, Non Tender and Normal Bowel Sounds
Neurology: Awake, Alert, Oriented, AO x 3 and No Motor Deficits
Skin: Warm, Dry and Other (Diffuse petechia/purpura-sacral ulcer with dressing)
Labs/Micro/Reports
Lab Data
01/05/24 03:15
Laboratory Results
01/04/24 01/04/24 01/04/24
13:52 14:59 22:11
PT Cancelled 16.9 H Cancelled
INR Cancelled 1.35 Cancelled
APTT Cancelled 20.3 L
01/05/24 01/05/24
00:39 03:15
PT 14.8 H 14.5
INR 1.13 1.10
APTT
[2024-01-05 09:34] LABS: Glycohemoglobin (HgbA1c) 5.3 % (4.0-5.6)
--- NOTE | 2024-01-05 10:34 | CON.ONC ---
Impression
Impression
73-year-old female with history of chronic steroid therapy for minimal-change disease/systemic lupus erythematous, chronic anemia and thrombocytopenia, HFpEF presenting with weakness:
# Sepsis
- Concern for urosepsis with fever, leukocytosis, elevated lactate, active UA
- UCx, BC pending
- Lactate downtrending
- Continue pressors, taper as tolerated
- CT abdomen pelvis shows no evidence of acute GI bleeding and is suggestive of possible UTI.
- GI following
- Continue antibiotics
# Anemia
- Acute on chronic, likely in the setting of sepsis, vit B12 deficiency and chronic kidney disease
- Hemoglobin 10.2 today, status post 2 units PRBC
- GI following, consider EGD if signs of active bleeding but hold for now
- Outpatient follow-up with Dr. Baldwin for evaluation of anemia and thrombocytopenia
- Check Vitamin B12, hemolysis labs
- Continue to monitor blood counts
- Transfuse if hemoglobin less than 7
# Thrombocytopenia
- Etiology unclear, medication induced versus low vitamin B12 versus sepsis
- Check vitamin B12
- Continue to monitor platelet counts
- Transfuse if platelets lower than 10K
- Outpatient follow-up Dr. Baldwin for evaluation of anemia and thrombocytopenia
# Hyperkalemia now resolved
# Hyponatremia now resolved
# History of concern for bladder cancer - outpatient follow-up with urology
Patient History
History of Present Illness
73-year-old female with past medical history of HFpEF, hypertension, hyperlipidemia, pulmonary hypertension, GERD and chronic steroid therapy (prednisone 50 mg daily) for minimal-change disease/SLE presenting with weakness and limited oral intake
for the past few days and concern for possible new onset seizure. Upon admission patient was found to be hypotensive requiring pressors, and tachycardic (Patient is on midodrine at home). Initial labs showed hyperkalemia, hyponatremia,
leukocytosis, anemia (hemoglobin 5.8 MCV 117, hemoglobin prior admission dated 10/14 was 8.7), thrombocytopenia, elevated lactic acid and total bilirubin. Noted to have heme positive stools in the ED and active UA. UC and BC pending. Was started
on antibiotics (Zosyn and vancomycin). Patient is followed outpatient by Dr. Baldwin. Per records, patient was found to have new thrombocytopenia 70K and anemia hemoglobin 9.5 in July 2023 for which studies showed markedly low vitamin B12
level of 62 and B12 repletion was initiated. Prior admission at [facility] in November 2023 show macrocytic anemia, thrombocytopenia and leukocytosis with immature granulocytes. Flow cytometry showed predominance of granulocytes without
immunophenotypic aberrancy. Patient was advised to follow-up with Dr. Baldwin for outpatient bone marrow biopsy if cytopenias persist without other explanation. Current clinical picture suggests urosepsis. Abnormal blood counts are likely
multifactorial and in the setting of chronic illnesses and recent sepsis. Patient is not actively bleeding and has not had black/bloody stools this admission.
CTA abdomen/pelvis:
No evidence for acute active GI hemorrhage, severe diverticulosis in the sigmoid colon, severe chronic bilateral renal disease, small amount of air in the right intrarenal collecting system and right renal pelvis and moderate distention of the right
renal pelvis and right upper pole intrarenal calyces, mild urothelial thickening and mild distention of the right ureter suggesting ascending urinary tract infection, infrarenal IVC filter containing thrombus, large hiatal hernia, moderate to severe
pancreatic parenchymal atrophy, and mild cardiomegaly.
Head CT:
No acute intracranial abnormality, moderate bilateral parietal lobe volume loss.
Chest x-ray:
No acute pulmonary process.
Past-Medical/Surgical History
Past medical history:
HFpEF
Hypertension
Hyperlipidemia
Pulmonary embolism
Chronic indwelling Savage catheter
GERD
CREST syndrome
Minimal-change kidney disease and biopsy-proven SLE
CKD
Past surgical history:
Bilateral hip replacement
Hysterectomy
IVC filter 2007
History of bladder biopsy 2022 (concern for bladder cancer, pathology unsatisfactory)
Family history:
Mother ovarian cancer
Patient Medication
�Medication �Instructions �Recorded �Confirmed �Last Taken �Type
sildenafil (pulm.hypertension) 20 20 mg PO TID pulmonary hypertension 05/24/23 01/04/24 08/13/23 History
mg tablet
potassium chloride 20 mEq 40 meq (2 x 20 mEq) PO DAILY 09/09/23 01/04/24 Unknown Rx
tablet,extended release(part/cryst) supplement-hypokalemia 30 days #60
tabs
azelastine 137 mcg (0.1 %) nasal 1 spray intranasal BID Allergies 12/01/23 01/04/24 Unknown History
spray
collagenase clostridium histo. 250 1 applic topical DAILY sacral wound 12/01/23 01/04/24 Unknown History
unit/gram topical ointment (Santyl)
furosemide 40 mg tablet (Lasix) 80 mg PO BID Fluid 12/01/23 01/04/24 Unknown History
Retention/Swelling
prednisone 50 mg tablet 50 mg PO DAILY Autoimmune disorder 12/01/23 01/04/24 Unknown History
metolazone 2.5 mg tablet 2.5 mg PO TU #10 tabs 12/09/23 01/04/24 Unknown Rx
pantoprazole 40 mg tablet,delayed 40 mg PO BID #60 tabs 12/09/23 01/04/24 Unknown Rx
release
acetaminophen 325 mg tablet 650 mg PO Q6HPRN PRN mild pain/ 01/04/24 01/04/24 Unknown History
fever
atorvastatin 10 mg tablet 10 mg PO QPM High cholesterol 01/04/24 01/04/24 Unknown History
bisacodyl 10 mg rectal suppository 10 mg [place] DAILYPRN PRN no bm 8 hrs 01/04/24 01/04/24 Unknown History
after mom
magnesium hydroxide 400 mg/5 mL 30 ml PO [id number] PRN no bm 2 days 01/04/24 01/04/24 Unknown History
oral suspension (Milk of Magnesia)
metoprolol succinate 25 mg 12.5 mg PO HS 01/04/24 01/04/24 Unknown History
tablet,extended release 24 hr
metoprolol succinate 25 mg 25 mg PO DAILY 01/04/24 01/04/24 Unknown History
tablet,extended release 24 hr
midodrine 5 mg tablet 5 mg PO TID 01/04/24 01/04/24 Unknown History
sodium phosphates 19 gram-7 118 ml [place] DAILYPRN PRN no bm 8 hrs 01/04/24 01/04/24 Unknown History
gram/118 mL enema (Fleet Enema) after dulcolax
tramadol 50 mg tablet 50 mg PO [id number] PRN severe pain 01/04/24 01/04/24 Unknown History
zinc oxide 20 % topical paste 1 ea topical DAILY sacral wound 01/04/24 01/04/24 Unknown History
zinc oxide 20 % topical paste 1 ea topical DAILYPRN PRN buttocks 01/04/24 01/04/24 Unknown History
soilage/dislodgement
Active Medications
Generic Name Dose Route Start Last Admin
Trade Name Freq PRN Reason Stop Dose Admin
Acetaminophen 650 mg 01/05/24 03:37 01/05/24 03:59
Acetaminophen 325 Mg Tablet PO 02/02/24 03:36 650 mg
Q4HPRN PRN Administration
mild pain and temp > 100.4
Bisacodyl 10 mg 01/04/24 17:43
Bisacodyl 10 Mg Rectal Suppository RECTAL 02/01/24 17:42
[id number] PRN
constipation
Dextrose 12.5 grams 01/04/24 14:33
Dextrose 50% (0.5 Grams/Ml) 50 Ml Syringe IV 02/01/24 14:32
[id number] PRN
hypoglycemia (BG < 70 mg/dL)
Protocol
Glucagon 1 mg 01/04/24 21:00
Glucagon 1 Mg Vial IM 02/01/24 20:59
PRN PRN
hypoglycemia - no IV access
Protocol
Hydrocortisone Sodium Succinate 50 mg 01/04/24 22:00 01/05/24 03:34
Hydrocortisone Sodium Succinate 100 Mg/2 Ml Vial IV 02/01/24 21:59 50 mg
Q6H ELIZABETH Administration
Norepinephrine Bitartrate 4 mg in 250 mls @ 0 mls/hr 01/04/24 15:30 01/05/24 06:22
Levophed IV 250 mls
PER PROTOCOL ELIZABETH Administration
Protocol
Per Protocol
Piperacillin Sod/Tazobactam Sod 2.25 grams in 50 mls @ 100 mls/hr 01/04/24 20:00 01/05/24 08:28
Zosyn IV 50 mls
Q6H ELIZABETH Administration
Vancomycin HCl 1 each/ Device 0 mls @ 0 mls/hr 01/04/24 18:00
IV
PER PROTOCOL ELIZABETH
Protocol
As Directed
Sodium Chloride 1,000 mls @ 75 mls/hr 01/04/24 23:45 01/04/24 23:51
Nss IV 1,000 mls
.[id number] ELIZABETH Administration
Insulin Aspart 0 units 01/05/24 00:00 01/05/24 05:23
Insulin Aspart Low Resistance 300 Units/3 Ml Pen.Injctr SC 02/02/24 00:00 Not Given
Q6 ELIZABETH
Protocol
Pantoprazole Sodium 40 mg 01/05/24 08:00 01/05/24 08:28
Pantoprazole Sodium 40 Mg/10 Ml Vial IV 02/02/24 07:59 40 mg
BID ELIZABETH Administration
Polyethylene Glycol 17 grams 01/04/24 17:43
Polyethylene Glycol Powder 17 Grams Packet PO 02/01/24 17:42
DAILYPRN PRN
constipation
Senna/Docusate Sodium 1 tablet 01/04/24 17:43
Docusate W/Senna (Lillian-Colace) Tablet PO 02/01/24 17:42
BIDPRN PRN
constipation
Sodium Chloride 0 flush 01/04/24 18:00
Sodium Chloride 0.9% (Flush) Syringe IV 02/01/24 17:59
PER PROTOCOL ELIZABETH
Sodium Chloride 10 ml 01/05/24 08:00 01/05/24 08:28
Sodium Chloride 0.9% (Preservative Free) 10 Ml Vial IV 02/02/24 07:59 10 ml
BID ELIZABETH Administration
Review of Systems
-
History Source: Patient and Records
Constitutional: Reports Weakness
Respiratory: Reports No Symptoms
Cardiac: Reports No Symptoms
GI: Reports No Symptoms
Breast: Reports No Symptoms
: Reports No Symptoms
Musculoskeletal: Reports No Symptoms
Skin: Reports No Symptoms
Neuro: Reports No Symptoms
Physical Exam
-
General: Well Developed and Well Nourished
Cardiology: Normal Sinus Rhythm, S1 and S2
Pulmonary: Clear
GI: Soft and Normal Bowel Sounds
Musculoskeletal: No Clubbing and No Cyanosis
Skin: Other (Pressure ulcer on lower back)
Psych: Calm
Labs
Lab Results
WBC 15.3 10^3/uL (4.8-10.8) H 01/05/24 03:15
RBC 3.01 10^6/uL (4.20-5.40) L 01/05/24 03:15
Hgb 10.2 g/dL (12.0-16.0) L 01/05/24 03:15
Hct 28.4 % (37.0-47.0) L 01/05/24 03:15
MCV 94.4 fL (81.0-99.0) 01/05/24 03:15
MCH 33.9 pg (27.0-31.0) H 01/05/24 03:15
MCHC 35.9 g/dL (33.0-37.0) 01/05/24 03:15
RDW 21.4 % (11.5-14.5) H 01/05/24 03:15
Plt Count 49 10^3/uL (130-400) L D 01/05/24 03:15
MPV 12.2 fL (7.4-10.4) H 01/05/24 03:15
Abs Immat Gran (auto) 1.7 10^3/uL (0-0.05) H 01/04/24 13:37
Absolute Neuts (auto) 14.2 10^3/uL (1.4-6.5) H 01/04/24 13:37
Absolute Lymphs (auto) 0.4 10^3/uL (1.2-3.4) L 01/04/24 13:37
Absolute Monos (auto) 0.9 10^3/uL (0.1-0.6) H 01/04/24 13:37
Absolute Eos (auto) 0.0 10^3/uL (0-0.7) 01/04/24 13:37
Absolute Basos (auto) 0.1 10^3/uL (0-0.2) 01/04/24 13:37
Immature Gran % 9.9 % (0-0.5) H 01/04/24 13:37
Neutrophils % 82.2 % (42.2-75.2) H 01/04/24 13:37
Lymphocytes % 2.0 % (20.5-51.1) L 01/04/24 13:37
Monocytes % 5.4 % (1.7-9.3) 01/04/24 13:37
Eosinophils % 0.1 % (0-6) 01/04/24 13:37
Basophils % 0.4 % (0-2) 01/04/24 13:37
Creatinine 1.2 mg/dL (0.6-1.0) H 01/05/24 03:15
Vital Signs
Vital Signs
Temp Pulse Resp BP Pulse Ox
97.7 F 97 19 109/70 98
01/05/24 07:25 01/05/24 04:45 01/05/24 04:45 01/05/24 04:45 01/05/24 04:45
--- NOTE | 2024-01-05 10:57 | WOUNDNOTE ---
BILATERAL LOWER LEGS
--- NOTE | 2024-01-05 11:00 | WOUNDNOTE ---
GABE RN note: Patient admitted with acute GI bleed, anemia.
See H&P for complete history. Trav home.
PMH: Sacral ulcer, CHF,HTN,Pulmonary HTN, PE, UTI-Savage, R below hip fracture in July 2023.
Wound Location and type/assessment: Patient admitted with: Cluster of full thickness ulcers on Sacrum due to incontinent associated skin damage/stage 3 PI. Patient confirmed that she is incontinent of urine and stool. Currently with Savage in use.
Had small dried stool in rectum. Heels are boggy, stage 1 PI, pillows in use under calves. Patient states she is on an air mattress at [facility] [place] home and using offloading cushion when in wheelchair. Daughter at bedside confirmed this is correct and
using Santyl for wounds. Scattered bruising on legs, no open wounds, SCD's in use.
Appetite: Poor, patient states she was not eating much at [place]. Device Repair Technician met with patient and daughter this AM.
Pressure redistribution devices in place: On Air mattress, if transferred to floor keep on air mattress. Air cushion.
Plan: Will order Santyl with adaptic and dry dressing to start tomorrow. Today applied adaptic and silicone foam. Skin care given. Repositioned patient onto L semi side lying position. Pillow placed under calves, adhesive foams applied to heels.
Will confirm orders with hospitalist and update nurse.
Updated care plan and will follow as needed.
Note to case management of equipment requested for discharge: air mattress.
Recommend follow up at wound care center upon discharge.
--- NOTE | 2024-01-05 11:45 | PTCARENOTE ---
Pt continues to rest quietly in bed. Daughter 'Debra' visiting at bedside. Protonix gtt d/c'ed at 0820 per order. Tapering Levophed gtt while maintaining MAP >65. Tolerating ordered clear liquid diet w/o complication. No additional changes from
previous assessment findings.
[2024-01-05] MEDS: KCL ELIXIR 40 MEQ PO (12:20)
[2024-01-05] MEDS: MAALOX 30 ML PO (12:50)
--- NOTE | 2024-01-05 12:56 | CON.VAS ---
Documented by User: LUCY Hitchcock 01/05/24 13:51
Consultation
Consultation Request
Performing Provider: Gerry
Reason for Consultation: CT evidance of thrombus within IVC filter
Medical History
-
Chief Complaint: Seizure?
History of Present Illness:
73 yo female here for evaluation of possible new seizure activity, hypotensive, sepsis. PMH CREST syndrome, chronic thrombocytopenia , chronic prednisone dependent, PE, CHF, HTN, CKD, chronic indwelling Savage. She had been having maroon-colored
stool and reduced PO intake for the last 4 days prior to admission. CT finding of thrombus in the inferior vena cava within the filter (filter placed around 2009 before hip replacement). Vascular consult for incidental finding of thrombus in IVC
filter.
Pt seen at bedside this am with Dr Garrett, daughter at bedside. Pt offers no complaints at this time.
Past Medical History
Past Medical History: Other (Minimal-change kidney disease, lupus/scleroderma overlap, CHF, hypertension, hyperlipidemia, pulmonary hypertension, mitral regurgitation, gastroesophageal reflux disease, osteoarthritis, Anemia, Chronic thrombocytopenia)
Past Surgical History: Other (Bilateral total hip arthroplasty, Hysterectomy, Bladder surgery, Cataract surgery)
Social History
Tobacco: Non-Smoker
Alcohol: Occasional
Living: Alone
Employment: Employed
Allergies / Home Medications
Allergy/AdvReac Type Severity Reaction Status Date / Time
No Known Allergies Allergy Verified 07/12/23 12:25
�Medication �Instructions �Recorded �Confirmed �Type
sildenafil (pulm.hypertension) 20 20 mg PO TID pulmonary hypertension 05/24/23 01/04/24 History
mg tablet
potassium chloride 20 mEq 40 meq (2 x 20 mEq) PO DAILY 09/09/23 01/04/24 Rx
tablet,extended release(part/cryst) supplement-hypokalemia 30 days #60
tabs
azelastine 137 mcg (0.1 %) nasal 1 spray intranasal BID Allergies 12/01/23 01/04/24 History
spray
collagenase clostridium histo. 250 1 applic topical DAILY sacral wound 12/01/23 01/04/24 History
unit/gram topical ointment (Santyl)
furosemide 40 mg tablet (Lasix) 80 mg PO BID Fluid 12/01/23 01/04/24 History
Retention/Swelling
prednisone 50 mg tablet 50 mg PO DAILY Autoimmune disorder 12/01/23 01/04/24 History
metolazone 2.5 mg tablet 2.5 mg PO TU #10 tabs 12/09/23 01/04/24 Rx
pantoprazole 40 mg tablet,delayed 40 mg PO BID #60 tabs 12/09/23 01/04/24 Rx
release
acetaminophen 325 mg tablet 650 mg PO Q6HPRN PRN mild pain/ 01/04/24 01/04/24 History
fever
atorvastatin 10 mg tablet 10 mg PO QPM High cholesterol 01/04/24 01/04/24 History
bisacodyl 10 mg rectal suppository 10 mg [place] DAILYPRN PRN no bm 8 hrs 01/04/24 01/04/24 History
after mom
magnesium hydroxide 400 mg/5 mL 30 ml PO [id number] PRN no bm 2 days 01/04/24 01/04/24 History
oral suspension (Milk of Magnesia)
metoprolol succinate 25 mg 12.5 mg PO HS Blood Pressure 01/04/24 01/04/24 History
tablet,extended release 24 hr
metoprolol succinate 25 mg 25 mg PO DAILY Blood Pressure 01/04/24 01/04/24 History
tablet,extended release 24 hr
midodrine 5 mg tablet 5 mg PO TID Blood Pressure 01/04/24 01/04/24 History
sodium phosphates 19 gram-7 118 ml [place] DAILYPRN PRN no bm 8 hrs 01/04/24 01/04/24 History
gram/118 mL enema (Fleet Enema) after dulcolax
tramadol 50 mg tablet 50 mg PO [id number] PRN severe pain 01/04/24 01/04/24 History
zinc oxide 20 % topical paste 1 ea topical DAILY sacral wound 01/04/24 01/04/24 History
zinc oxide 20 % topical paste 1 ea topical DAILYPRN PRN buttocks 01/04/24 01/04/24 History
soilage/dislodgement
Review of Systems
-
History Source: Patient and Family
All other systems: Negative unless noted
Constitutional: Reports Fatigue
EENT: Reports No Symptoms
Respiratory: Reports No Symptoms
Cardiac: Reports No Symptoms
Vascular: Denies Leg Pain / Claudication
Abdomen/GI: Reports No Symptoms
: Reports No Symptoms
Musculoskeletal: Reports No Symptoms
Skin: Reports No Symptoms
Neurological: Reports No Symptoms
Physical Exam
Vital Signs
Temp Pulse Resp BP Pulse Ox
97.8 F 97 19 109/70 98
01/05/24 11:30 01/05/24 04:45 01/05/24 04:45 01/05/24 04:45 01/05/24 04:45
Physical Exam
General: No Apparent Distress
HEENT: Normocephalic and Atraumatic
Respiratory: Non Labored Respirations
Cardiac: Negative JVD
GI: Soft, Non Tender and Non Distended
Musculoskeletal: No Clubbing, No Cyanosis and No Edema
Skin: Warm
Neuro: Awake, Alert and Oriented
Psych: Calm
Pulses: Right Dorsalis Pedis: +2 and Left Posterior Tibial: +2

Documented by User: LUCY Simmons 01/05/24 19:00
Consultation
Consultation Request
Date/Time Consultation Performed: 01/05/24 1600
Requesting Provider: Hospitalist
Assessment / Plan
-
Assessment: 73 year old female admitted for hemorrhagic shock with incidental finding of thrombus at IVC filter
Plan:
Would not recommend surgical removal of IVC filter given chronicity and high risk for vein damage with removal. Would consider anticoagulation in the future, but currently patient is s/p hemorrhagic shock and with critical thrombocytopenia.
Patient seen and examined at bedside with Dr. Kaz Garrett below plan reviewed with attending.
--- NOTE | 2024-01-05 12:59 | CM ---
CM following re: discharge planning.
Reviewed pt's chart, met with pt and pt's daughter at bedside.
pt is a 73 year old female admitted with primary dx of Sepsis.
Pt reports she lives alone in [address] in-law suite, no steps to enter, has 2 supportive children. Pt reports she ambulates wit a walker at baseline, has a shower chair, commode. Pt reports she has live-in caregiver services provided by [facility]. Pt
reports she is admitted from [facility] where she was for a short term rehab from 12/09/23. Pt repprts she does not pay for a bed hold. Pt expressed her desire to continue on skilled services at [facility] or [facility]. A referral to both
SNF made.
PT and OT will evaluate the pt to determine a level of care at discharge.
D/C plan: [facility] or [facility]. Awaiting for determinations.
CM will follow with discharge plan updates as hospitalization progresses
--- NOTE | 2024-01-05 13:29 | CON.ID ---
Consultation
-
Date/Time Consultation Requested: 01/05/2024 1105
Date/Time Consultation Performed: 01/05/2024 1330
Requesting Provider: Dr. Reji Tovar
Performing Provider: Dr. Amparo Padron
Reason for Consultation: Shock
Chief Complaint / Past History
Chief Complaint
Weakness
History of Present Illness
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
placement, chronic hypotension on midodrine who presented from SNF with increased weakness on January 03. Per daughter, nurse at custodial told her that patient may have had a seizure and therefore sent to the hospital. However in the ED
patient without evidence of seizure. She complains of increasing weakness for the past 5 days with poor appetite. No subjective fevers or chills. No cough or shortness of breath. No diarrhea or abdominal pain. Positive nausea, no vomiting. No
headaches. In the ER hemoglobin was 5.8. Lactic acid 7.4. Blood pressure 71/49. Per daughter her normal blood pressure systolic usually in the 80s and 90s. Patient received 2 units of packed red blood cells, 1 unit of platelets, and now weaning
down the Levophed. She is also on Zosyn and vancomycin for possible septic shock. Per GI, her shock is not hemorrhagic shock. Patient with history of AVM and most likely has slow oozing. CT of the abdomen and pelvis did not show any acute active
GI bleed, there is small amount of air in the right intrarenal collecting system and right renal pelvis either secondary to an emphysematous pyelitis or recent instrumentation. There is moderate distention of the right renal pelvis, mild urothelial
thickening and mild distention of right ureter suggesting ascending urinary tract infection. Infrarenal IVC filter containing thrombus. Patient denies flank pain. No suprapubic pain. The chronic Patel is changed every 4 weeks at the nursing
home. Admission UA showed minimal pyuria 0-3, urine culture with mixed mark. Today the Patel was exchanged and sent for repeat UA which showed 1+ leukocyte esterase, 16-30 white blood cells, more than 30 squamous epithelial cells, urine culture
pending. Blood culture x 2 still pending. Chest x-ray no pneumonia. Today patient reports she is feeling better. Her appetite is back.
Past History
Additional Past Medical History:
CREST syndrome with Lupus/scleroderma overlap
Chronic hypotension on midodrine
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
CKD3
Urinary retention with chronic patel
HFpEF
HTN
Chronic thrombocytopenia
Pulmonary hypertension
PE 2006
IVC filter placement 2007
Bilateral total hip arthroplasty
Hysterectomy
Perineoplasty
Allergy History:
No Known Allergies Allergy (Verified 07/12/23 12:25)
Medications Reviewed: Yes
Current Antibiotics:
Zosyn
Vancomycin
Prednisone 50mg
Social History
Tobacco: Non-Smoker
Alcohol: Occasional
Drug: None
Living: Shelter ([facility]
Family History
Family History: Not Pertinent
Review of Systems
Review of Systems
General: Change in Appetite; Negative Fever or Chills
HEENT: Negative Stiff Neck, Sinus Problems, Headache or Pharyngitis
Cardiovascular: Edema; Negative Chest Pain or Dyspnea
Respiratory: Negative Dyspnea or Cough
Gasteroenterology: Nausea; Negative Vomiting or Diarrhea
Genital / Urological: Negative Hematuria or Flank Pain
Endocrine: Weakness
Skin / Hair / Nails: Negative Rash
Neurological: Negative Headache or Dizziness
All systems: All other systems were reviewed and were negative
Vital Signs
Temp Pulse Resp BP Pulse Ox
97.8 F 97 19 109/70 98
01/05/24 11:30 01/05/24 04:45 01/05/24 04:45 01/05/24 04:45 01/05/24 04:45
Physical Exam
Physical Exam
Constitutional: No Acute Distress and Comfortable
Head: Other (No frontal or max or sinus tenderness)
Eyes: No Conjunctival Hemorrhage and Sclera Anicteric
Cardiovascular: Regular Rate and S1/S2
Pulmonary: Clear
Gastrointestinal: Soft, Non Tender and Non Distended
Genito-Urinary: Patel and Clear Urine; Negative CVA Tenderness
Extremities: Edema
Wound: Other (Reviewed today's wound photos: mid sacrum with several erosive ulcers. )
Neurological: AO x 3
Lab / Diagnostic Study Results
Abs Immat Gran (auto) 1.7 10^3/uL (0-0.05) H 01/04/24 13:37
Absolute Neuts (auto) 14.2 10^3/uL (1.4-6.5) H 01/04/24 13:37
Absolute Lymphs (auto) 0.4 10^3/uL (1.2-3.4) L 01/04/24 13:37
Absolute Monos (auto) 0.9 10^3/uL (0.1-0.6) H 01/04/24 13:37
Absolute Basos (auto) 0.1 10^3/uL (0-0.2) 01/04/24 13:37
Immature Gran % 9.9 % (0-0.5) H 01/04/24 13:37
Neutrophils % 82.2 % (42.2-75.2) H 01/04/24 13:37
Lymphocytes % 2.0 % (20.5-51.1) L 01/04/24 13:37
Monocytes % 5.4 % (1.7-9.3) 01/04/24 13:37
Eosinophils % 0.1 % (0-6) 01/04/24 13:37
Basophils % 0.4 % (0-2) 01/04/24 13:37
PT 14.5 Sec (11.4-14.6) 01/05/24 03:15
INR 1.10 01/05/24 03:15
Lactic Acid 2.1 mmol/L (0.7-2.0) H 01/05/24 08:25
Ur Squamous Epith Cells 0-2 /LPF (Few) 01/04/24 13:37
Microbiology Results
Micro:
01/05/24 13:14 Urine Culture - Pending
Urine
01/04/24 13:37 Urine Culture - Final
Urine
01/04/24 14:58 Blood Culture - Pending
Blood/Venous
01/04/24 22:11 MRSA Screen - Pending
Nose
01/04/24 14:58 Blood Culture - Pending
Blood/Venous
01/04/24 CT a/p: No CTA evidence for acute active gastrointestinal hemorrhage. Small amount of air in the right intrarenal collecting system and right renal pelvis (either secondary to emphysematous pyelitis or recent instrumentation). Mild debris
in the distended right renal pelvis. Moderate distention of the right renal pelvis and right upper pole intrarenal calyces. Mild urothelial thickening and mild distention of the right ureter suggesting ascending urinary tract infection. Patel
catheter in moderate air in the urinary bladder. Infrarenal IVC filter containing thrombus.
01/04/24 CXR: No acute pulmonary process identified.
Assessment / Plan
# SIRS/shock, weaning pressor
- Of note,pt with h/o chronic hypotension (SPB 80's-90's)
- HgB 5.8. - per GI, slow bleed from AVM, and therefore not source of shock.
- Workup for sepsis in progress.
CXR neg acute change
CT scan suggestive of right complicated UTI. Interestingly, admission UA nonsignificant wbc of only 3-5. Ucx >100K mixed mark, contaminant.
Patel replaced today with new patel placed, repeat Ucx pending.
blood cx's neg to date.
- DC Vancomycin.
- Can continue Zosyn for now pending Ucx.
# IVC filter with thrombus
# hx of PE
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
CREST syndrome with Lupus/scleroderma overlap
Chronic hypotension on midodrine
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
CKD3
Urinary retention with chronic patel
HFpEF
HTN
Chronic thrombocytopenia
Pulmonary hypertension
PE 2006
IVC filter placement 2007
Bilateral total hip arthroplasty
Hysterectomy
Perineoplasty
[2024-01-05 13:36] LABS: Hematocrit 25.5 % (37.0-47.0); Hemoglobin 9.1 g/dL (12.0-16.0); Mean Corp Hgb Conc. 35.7 g/dL (33.0-37.0); Mean Corpuscular Hgb 33.5 pg (27.0-31.0); Mean Corpuscular Volume 93.8 fL (81.0-99.0); Red Blood Cell Count 2.72 10^6/uL (4.20-5.40); Red Cell Dist. Width 22.3 % (11.5-14.5); White Blood Cell Count 11.9 10^3/uL (4.8-10.8)
[2024-01-05 13:44] LABS: Urine Albumin Negative (Neg - Trace); Urine Bilirubin Negative (Negative); Urine Character Slightly Cloudy (Clear); Urine Color Yellow; Urine Glucose Negative (Negative); Urine Ketone Negative (Negative); Urine Leukocyte 1+ (Negative); Urine Nitrite Negative (Negative); Urine Occult Blood Negative (Negative); Urine Specific Gravity 1.005 (<1.030); Urine Urobilinogen Negative (Neg - 1+)
[2024-01-05 14:02] LABS: Urine Squamous Cell >30 /LPF (Few)
[2024-01-05 14:03] LABS: Urine Amorphous Seen
[2024-01-05 14:05] LABS: Vitamin B12 797 pg/ml (239-931)
[2024-01-05 14:05] LABS: Urine Red Blood Cell 0-2 /HPF (0-2)
[2024-01-05 14:06] LABS: Urine White Cell 16-20 /HPF (0-5)
[2024-01-05 14:21] LABS: Mean Platelet Volume 11.2 fL (7.4-10.4); Platelet Count 27 10^3/uL (130-400)
--- NOTE | 2024-01-05 15:26 | W.PN.UPDATE ---
Update Note
Progress Note Update
Seen and examined by me independently in collaboration with the internist medical doctor md.
Lab data and imaging data reviewed.
Addendum as below :
Admitted with septic shock suspected source source, possible right pyelo.
Improved hemodynamics. Currently coming down on vasopressors. Patient feels improved as well.
Continue with current antibiotics and stress dose steroids.
GI bleed-heme positive stools with anemia noted. Suspect more chronic blood loss anemia and than acute. Suspect hemodynamics/shock is secondary to sepsis. GI following.
Patient has a IVC filter with a thrombus now. Unclear reasons why it is left in. Will consult to vascular and if not retrievable will consider anticoagulations once GI workup for heme positive stools and anemia is complete.
DW daughter at bedside.
Total time spent on today's encounter was 52 minutes which included time spent in counseling the patient/family regarding diagnosis and treatment plan as listed above, goals of care, and symptom management. Case was discussed with nursing staff,
specialists, and care coordinators/case management. All labs and imaging personally reviewed by me. Remainder the time spent in detailed review of previous records, lab data, imaging, and other medical provider documentation.
--- NOTE | 2024-01-05 15:30 | PTCARENOTE ---
CMP, lactic results reported to Dr Serrato. Order for K replacement received. Per Dr Serrato, next lactic acid level in AM.
[2024-01-05] MEDS: NSS 1000 IV (15:36)
--- NOTE | 2024-01-05 16:10 | PTCARENOTE ---
Pt c/o 'heartburn' at 1230 following administration of ordered KCl PO-Dr Serrato notified and Mylanta administered to pt (see MAR for time) w/ reported pt relief. Savage catheter exchanged per order Dr Serrato and urine specimen sent to lab. Pt
refused ordered lunch tray other than sips of tea 'not really hungry'. IV Team RN in room to place midline. Platelets currently infusing per order via Lt femoral central line- pt tolerating w/o complication. Repositioned q2hr or more frequently.
Hygiene/comfort care provided.
[2024-01-05 17:09] LABS: ALT (SGPT) 22 U/L (0-35); AST (SGOT) 19 U/L (14-36); Alkaline Phosphatase 123 U/L (38-126); Blood Urea Nitrogen 59 mg/dl (7-17); Calcium 8.3 mg/dl (8.4-10.2); Carbon Dioxide 28 mmol/L (22-30); Chloride 96 mmol/L (98-107); Estimated Creatinine Clearance 39 ml/min; Glucose 109 mg/dl (70-99); Potassium 3.3 mmol/L (3.5-5.1); Sodium 136 mmol/L (135-145); Total Bilirubin 2.3 mg/dl (0.2-1.3); Total Protein 5.1 g/dl (6.3-8.2); eGFR 53.72
[2024-01-05 17:43] LABS: Magnesium 1.9 mg/dl (1.6-2.3); Phosphorus 4.3 mg/dl (2.5-4.5)
[2024-01-05] MEDS: KLOR-CON 40 MEQ PO (17:49)
[2024-01-05 17:56] LABS: Hematocrit 23.6 % (37.0-47.0); Hemoglobin 8.4 g/dL (12.0-16.0); Mean Corp Hgb Conc. 35.6 g/dL (33.0-37.0); Mean Corpuscular Hgb 33.2 pg (27.0-31.0); Mean Corpuscular Volume 93.3 fL (81.0-99.0); Mean Platelet Volume 11.2 fL (7.4-10.4); Platelet Count 44 10^3/uL (130-400); Red Blood Cell Count 2.53 10^6/uL (4.20-5.40); Red Cell Dist. Width 22.2 % (11.5-14.5); White Blood Cell Count 10.6 10^3/uL (4.8-10.8)
--- NOTE | 2024-01-05 18:50 | PTCARENOTE ---
Dr Serrato notified of CBC results. Order for repeat CBC noted, no additional orders received. Pt tolerated CL dinner w/o complications noted. Drank 100% Ensure clear.
--- NOTE | 2024-01-05 18:52 | W.PN.UPDATE ---
Update Note
Progress Note Update
Seen and evaluated. Full consultation to follow. 73-year-old female with history of IVC filter placed secondary to DVT/PE likely provoked postsurgical. She had another orthopedic surgery and therefore due to holding of anticoagulation temporary
IVC filter was placed. This was back in 2009. Never retrieved. Patient notes lost to follow-up. She is without complaints of any leg swelling. Presented with shock here. Workup included CT scan that shows possible thrombus within the filter.
Not fully occlusive. Her exam is relatively benign from a vascular perspective. Abdomen is soft. No discomfort or tenderness. Groins are flat bilaterally. Thighs and calves are soft bilaterally. No phlegmasia. No significant edema. Weak
pedal pulses palpable bilaterally. Feet are warm. No rubor, no ulcerations.
CT scan reviewed.
Plan/chronic indwelling IVC filter (infrarenal).. It is a retrievable type filter as there is a hook at the top. However this has been in for 10 years now. In addition the hook at the top is either buried in the wall or outside of the cava and
one of the tines appears to be poking out of the cava as well. The filter is tilted. I think this would be very high risk to take out especially in the setting of thrombocytopenia and increased bleeding risk. In general for filter that the been
in that long I think the risk outweighs the benefit. There is no clear indication to take it out at this point. In addition I think she is very high risk if she needs an open surgical retrieval but I do not think that is necessary at this point.
Would recommend anticoagulation once safe from a medical perspective. Will sign off. Please call with questions.
--- NOTE | 2024-01-05 19:14 | PTCARENOTE ---
Received pt via handoff. Pt AAOx3, generalized weakness throughout but able to LOZA. NSR, with +2 edema in lower extremities. Pulses weak on palpation but radial, pt and dp present. Legs cool mottled to touch. 98% RA, shallow breathes and diminished
throughout. Hypoactive bowel sounds in all 4Q, stomach round and obese. Chronic Savage CDI draining cloudy yellow urine. Stage 3 wound on sacrum, heals blanchable red, protective foams put on all. Left femoral triple lumen in place with gtts running
see flowsheet. Call almaraz at bedside.
--- NOTE | 2024-01-05 19:36 | W.PN.UPDATE ---
Update Note
Progress Note Update
I saw and examined the patient.
The resident's note was reviewed and I agree with the note.
Comment:
CC: Thrombocytopenia
HPI: 73-year-old female with SLE/min change dz on chronic steroid therapy (prednisone 50 mg daily) presenting with weakness and limited oral intake for the past few days. Upon admission patient was found to be hypotensive requiring pressors, and
tachycardic with leukocytosis, anemia (hemoglobin 5.8 MCV 117), thrombocytopenia, elevated lactic acid and total bilirubin. Noted to have heme positive stools in the ED. Was started on antibiotics (Zosyn and vancomycin). Patient is followed
outpatient by Dr. Baldwin. Per records, patient was found to have new thrombocytopenia 70K and anemia hemoglobin 9.5 in July 2023 for which studies showed markedly low vitamin B12 level of 62 and B12 repletion was initiated. Current clinical
picture suggests sepsis from UTI. Patient is not actively bleeding and has not had black/bloody stools this admission.
CTA abdomen/pelvis:
No evidence for acute active GI hemorrhage, severe diverticulosis in the sigmoid colon, severe chronic bilateral renal disease, small amount of air in the right intrarenal collecting system and right renal pelvis and moderate distention of the right
renal pelvis and right upper pole intrarenal calyces, mild urothelial thickening and mild distention of the right ureter suggesting ascending urinary tract infection, infrarenal IVC filter containing thrombus, large hiatal hernia, moderate to severe
pancreatic parenchymal atrophy, and mild cardiomegaly.
Past medical history:
HFpEF
Hypertension
Hyperlipidemia
Pulmonary embolism
Chronic indwelling Savage catheter
GERD
CREST syndrome
Minimal-change kidney disease and biopsy-proven SLE
CKD
Past surgical history:
Bilateral hip replacement
Hysterectomy
IVC filter 2007
History of bladder biopsy 2022 (concern for bladder cancer, pathology unsatisfactory)
IMP:
Septic shock
Chronic thrombocytopenia
Anemia
PLAN:
Abx, pressors, stress steroids.
Await cx.
Follow CBC and transfuse PRB HgB < 7, PLT < 10K
[2024-01-05] MEDS: ProAmatine 5 MG PO (19:41)
[2024-01-05] MEDS: PITRESSIN 100 IV (20:42)
[2024-01-05 23:36] LABS: Hematocrit 22.6 % (37.0-47.0); Hemoglobin 8.2 g/dL (12.0-16.0); Mean Corp Hgb Conc. 36.3 g/dL (33.0-37.0); Mean Corpuscular Hgb 34.2 pg (27.0-31.0); Mean Corpuscular Volume 94.2 fL (81.0-99.0); Mean Platelet Volume 11.9 fL (7.4-10.4); Platelet Count 31 10^3/uL (130-400); Red Cell Dist. Width 22.3 % (11.5-14.5); White Blood Cell Count 9.7 10^3/uL (4.8-10.8)
[2024-01-06] VITALS (105 sets, daily range): BP systolic 83–144; BP diastolic 51–103; BMI 25.3
--- NOTE | 2024-01-06 | PTCARENOTE ---
All systems reassessed, no change in status, CBC lab drawn. Call almaraz at bedside.
[2024-01-06] MEDS: NSS 1000 IV ×2 (02:05→13:51)
[2024-01-06] MEDS: ZOSYN 50 IV ×2 (02:05→08:23)
[2024-01-06 03:57] LABS: Hematocrit 22.3 % (37.0-47.0); Mean Corp Hgb Conc. 35.9 g/dL (33.0-37.0); Mean Corpuscular Hgb 34.2 pg (27.0-31.0); Mean Corpuscular Volume 95.3 fL (81.0-99.0); Mean Platelet Volume 9.9 fL (7.4-10.4); Platelet Count 23 10^3/uL (130-400); Red Blood Cell Count 2.34 10^6/uL (4.20-5.40); Red Cell Dist. Width 22.2 % (11.5-14.5); White Blood Cell Count 9.6 10^3/uL (4.8-10.8)
--- NOTE | 2024-01-06 04:00 | PTCARENOTE ---
All systems reassessed, potassium being repleted. Hygiene performed, labs drawn, call almaraz at bedside.
[2024-01-06 04:13] LABS: ALT (SGPT) 22 U/L (0-35); AST (SGOT) 17 U/L (14-36); Albumin 2.8 g/dl (3.5-5.0); Alkaline Phosphatase 124 U/L (38-126); Blood Urea Nitrogen 50 mg/dl (7-17); Calcium 8.5 mg/dl (8.4-10.2); Carbon Dioxide 28 mmol/L (22-30); Chloride 94 mmol/L (98-107); Estimated Creatinine Clearance 43 ml/min; Glucose 198 mg/dl (70-99); Magnesium 1.9 mg/dl (1.6-2.3); Phosphorus 3.4 mg/dl (2.5-4.5); Potassium 2.2 mmol/L (3.5-5.1); Sodium 136 mmol/L (135-145); Total Bilirubin 1.7 mg/dl (0.2-1.3); Total Protein 4.9 g/dl (6.3-8.2); eGFR > 60.00
[2024-01-06] MEDS: KCL 100 IV ×3 (04:30→20:20)
[2024-01-06] MEDS: TYLENOL 650 MG PO ×3 (05:27→19:18)
[2024-01-06] MEDS: PITRESSIN 100 IV (05:32)
[2024-01-06] MEDS: LEVOPHED 250 IV ×2 (05:32→18:13)
--- NOTE | 2024-01-06 07:23 | W.PN.INTV ---
Today's Communication / Plan
Recommendations
Restarted sildenafil
stress dose steroids
Continue IV PPI twice daily
Continue to trend H&H, wbc, lactate, K, temps
Increased midodrine to 10-will try to wean pressors as tolerated
Zosyn switched to ceftriaxone for suspicion of causing thrombocytopenia
IV KCl
Transfuse hgb if needed to keep>7
Assessment
-
73-year-old female with extensive PMH (see primary note), with history of recurrent UTIs in the past and indwelling Savage catheter since February (due to overactive bladder?), who presented from [facility] with suspected seizure (?) and
weakness/decreased oral intake for the past 4 days.
Initial labs in ED showed elevated white count and lactic acid, worsening anemia and thrombocytopenia compared to baseline, and hemodynamic instability requiring pressors.
When I visited the patient this AM, vital signs were as follows: BP 108/65 (on levophed 6 + vasopressin 0.03 + midodrine 5), NH 110, RR 23, O2sat 94 on RA. Afebrile.
# Hemorrhagic shock with component of sepsis most likely in the setting of UTI
Patient has femoral line and 2 large-bore peripheral gauge IVs-will place PICC line today
Increased midodrine to 10-Will try to wean pressors as tolerated-Maintain MAP>65
Receiving 1 lit N/S @ 75cc/hr- Will give another 1 lit IV bolus
Stress-dose steroids restarted
Leukocytosis improved-lactate initially downtrended now back to 3-latest AG is 11
ID discontinued vancomycin-Zosyn stopped because of suspicion of causing thrombocytopenia and was switched to ceftriaxone 1gr daily
Preliminary U/C suggests possible contamination-placed a new Savage- repeat U/A active-repeat U/C pending
Blood culture negative after 24 hours
Chest x-ray and head CT normal-CTA suggests ascending urinary tract infection but no evidence of active GI bleeding
Currently has no respiratory distress and saturating well on room air -maintain SpO2 more than 90%
Status post 2 unit PRBC-transfuse to keep hemoglobin > 7
Status post 2 unit platelets-plt counts seem to be downtrending- will cont to monitor
Trend CBC, Temps, BMP, lactic acid
Currently on clear liquids-appetite not too good but is tolerating liquids- may advance diet as tolerated
Head of bed elevation
Fall precautions
# Acute on chronic anemia
Patient had a large bowel movement this morning and overnight, dark in color
BUN improving but still remains moderately elevated
Hemoglobin 8 s/p 2 units pRBC
Continue PPI IV BID
Continue to trend H&H
Appreciate GI- May consider endoscopy after patient is stabilized
Hem-onc following-May consider eventual bone marrow biopsy
# Pulmonary hypertension
Restarted sildenafil
#indirect hyperbilirubinemia
Improving
Will continue to trend LFT, bili
No signs of transfusion-related reaction
Direct Jorge negative
#Infrarenal IVC filter thrombosis
No indications for intervention at this time per vascular surgery
# Hypokalemia
Initially, hyperkalemic on admission
Potassium was 2.2 this AM. Patient received 40 mEq KCl IV early am-
Will give another 40 mEq KCl IV
Will check K again
# Hyponatremia, hypochloremia
Resolved-likely related to reduced oral intake
# Hypomagnesemia
Resolved
# Hyperglycemia
A1c is 5.3
Most likely steroid-induced
SSI and will monitor BG
Maintain euglycemia at BG 140-180
#Sacral pressure ulcer
No signs of active infection/discharge
Dressing applied-single dose of Tylenol given for pain overnight
Wound care
# DVT prophylaxis
SCD
Subjective Dataa
Subjective Data
Date of Service:
Date of Service: January 06, 2024
Subjective:
Patient is tolerating clear liquids for breakfast. Mentions appetite is not so good. Is alert, awake, and oriented and overall general appearance has significantly improved since initial admission. Denies abdominal pain/cramps. Denies shortness
of breath, chest pain.
Review of Systems
General: Satisfactory Appetite
Cardiopulmonary: Dyspnea (Negative), Chest Pain (Negative) and Edema (2+ pitting edema bilateral)
GI: Abdominal Pain (Negative), Nausea (Negative), Vomiting (Negative) and Other (Loose dark brown/black stools)
Neuro: Headache (Negative)
Genitourinary: Savage
Objective Data
Data Reviewed
Vital Signs / I&O / Oxygen:
Vital Signs
Temp Pulse Resp BP Pulse Ox
97.9 F 89 18 92/58 98
01/06/24 04:00 01/06/24 05:30 01/06/24 05:30 01/06/24 05:30 01/06/24 05:30
Intake and Output
01/05/24 01/06/24 01/07/24
06:59 06:59 06:59
Intake Total 2990.5 / 3101.8 4522.2 / 4522.2
Output Total 1550 / 1550 3125 / 3125
Balance 1440.5 / 1551.8 1397.2 / 1397.2
SaO2 98
Physical Exam
General: Respiratory Distress (Negative), Comfortable and Good Appetite
HEENT: Normocephalic, Anicteric, Moist Mucous Membranes and Other (Pale)
Cardiovascular: S1-S2, Regular Rhythm, Peripheral Edema (2+ bilateral pitting edema) and Other (Extremities warm to touch)
Respiratory: Clear and Non-Labored Respirations
GI: Soft, Non Distended, Non Tender and Normal Bowel Sounds
Neurology: Awake, Alert, Oriented, AO x 3 and No Motor Deficits
Skin: Warm, Dry and Other (Diffuse petechia/purpura-sacral ulcer with dressing)
Labs/Micro/Reports
Lab Data
01/06/24 03:38
Microbiology
01/04/24 14:58 Blood/Venous Blood Culture - Preliminary
No Growth in 24 hours- Final report to follow
01/04/24 14:58 Blood/Venous Blood Culture - Preliminary
No Growth in 24 hours- Final report to follow
01/04/24 13:37 Urine Urine Culture - Final
[2024-01-06 08:04] LABS: Glucose - Point of Care 222 mg/dl (70-99)
--- NOTE | 2024-01-06 08:16 | PTCARENOTE ---
Received pt from previous RN. Pt AAOx3, generalized weakness needs help with turns. NSR/sinus tach on the monitor. On RA O2 sat 95%, lungs diminished/crackles. Savage in place, hygiene provided. Pt with incont of dark BM. Wound care provided for
sacrum. Levo gtt and Vaso gtt. SCDs in place. CHG bath provided. Pt is laying in bed with call almaraz in reach.
[2024-01-06] MEDS: ProAmatine 5 MG PO (08:22)
[2024-01-06] MEDS: DELTASONE 50 MG PO (08:22)
[2024-01-06] MEDS: PROTONIX IV 40 MG IV ×2 (08:23→19:18)
[2024-01-06] MEDS: NSS (PRESERVATIVE FREE) 10 ML IV ×2 (08:23→19:19)
--- NOTE | 2024-01-06 08:28 | W.PN.GI.CBS2 ---
Addendum entered and electronically signed by La Edgar DO 01/06/24 12:01:
The patient was seen and examined by me independently in collaboration with the nurse practitioner.
Past medical history/social history/medications/allergies/family history reviewed.
Lab data and imaging data reviewed.
Patient seen in follow-up-- hemoglobin dropped down to 8 with melena on exam. Platelets dropped to 23K this morning, hematology following.
Reassuring that her BUN has actually improved, 99 --> 75 --> 72 --> 59 --> 50
She has a known large hiatal hernia and LA grade D esophagitis, recently scoped by GI. Given her profound thrombocytopenia, she is likely having oozing from either/both her severe esophagitis as well as possible camerons lesions within her large
hiatal hernia. Additionally, she has severe electrolyte abnormalities. She is a high risk from an anesthesia perspective due to her pulmonary HTN, heart failure, IVC filter thrombus. She is not exhibiting any signs of hemorrhagic shock-- I feel this
is the result of her thrombocytopenia and overall acute illness, rather than the cause. Very little therapeutic options available for bleeding with her current platelet levels.
Recommendations:
-2 large bore peripherally gauge IVs
-Active T&C
-transfuse for Hgb <7.0
-PPI IV BID
-will continue to follow and monitor bleeding-- depending on clinical course and optimization of electrolytes and plaetlets, will discuss performing inpatient EGD
-recommend transfusion of platelets given active oozing from GI tract
Original Note:
Today's Communication / Plan
-
etiology of hypotension and tachycardia related to underlying sepsis vs GI bleeding as now passing black stools in setting of severe thrombocytopenia overnight
GI bleed -- upper source AVM/hx esophagitis large HH as recently noted on EGD in August
noted bleeding with melena this am can consider EGD if persistent symptoms but will need improved platelet count and optimized unless she becomes hemodynamically unstable , consider eventual OP colonoscopy but appear more upper GI source with
marked BUN elevation
hbg 5.8 then up to 10.3 with transfusion then back down to 8
BUN with slow improvement 99-75--72--59--50
cont work up per hospitalist team to rule out concurrent infectious process
cont clear diet
sent message to review with hematology for platelet transfusion as 23,000 this am
cont PPI IV BID
CTA as noted neg for bleeding source
correct K per medical team initially high no low
monitor for recurrent seizure
s/p vascular eval with concern for thrombus in filter
Assessment / Plan
-
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
LA grade D esophagitis (08/23/2023), large hiatal hernia, congested duodenal mucosa, single spot duodenum (unlikely angioectasia) treated with APC, anemia, thrombocytopenia, and osteoarthritis with recent admission. In November she presented with
weakness, fatigue, and hypotension in setting of pulm HTN and acute CHF. She was also noted with hypoxemia, hyponatremia , elevated troponin and seen by GI and heme for anemia and heme + stool. Per heme anemia likely multi factorial with
multiple illnesses, B12 deficiency, crest with GI bleeding, prior noted grade D esophagitis and prior noted AVM and to consider eventual bone marrow biopsy. She was seen by GI without overt bleeding and recommended OP follow up for colonoscopy.
She now presents with concern for seizure with decreased appetite for 4 days. On admission she is noted with hypotension requiring pressors, tachycardia, with no report of bleeding prior to admission and dark maroon heme + stool but also
reported as dark brown when temp taken rectally per staff and them melena on 01/05 after drop in BUN but also drop in platelets. She was also noted with leukocytosis, elevated lactate and hyperkalemia then hypokalmemia, ALTA, hyponatremia after
admission. . She is also noted with hbg 5.8 with BUN of 99 and elevated creat with prior 8.7 on 12/05 with platelets 51,000. She initially had decreased mentation but improvement with fluid resuscitation in ER.
01/03 CTA
1. No CTA evidence for acute active gastrointestinal hemorrhage.
2. Severe diverticulosis in the sigmoid colon.
3. Severe chronic bilateral renal disease.
4. Small amount of air in the right intrarenal collecting system and right renal pelvis (either secondary to emphysematous pyelitis or recent instrumentation). Mild debris in the distended right renal pelvis. Moderate distention of the right renal
pelvis and right upper pole intrarenal calyces. Mild urothelial thickening and mild distention of the right ureter suggesting ascending urinary tract infection.
5. Savage catheter in moderate air in the urinary bladder.
6. Infrarenal IVC filter containing thrombus.
7. Moderate to severe pancreatic parenchymal atrophy.
8. Large hiatal hernia.
9. Mild cardiomegaly.
10. Severe discogenic degenerative disease and facet joint arthrosis in the lower lumbar spine.
11. Bilateral total hip arthroplasties in place.
-hypotension with need for pressors on admission
-concern for sepsis with fever, leukocytosis, elevated lactate- trending down
-hyperkalemia then hypokalemia
-acute on chronic anemia with melena after admission
-CTA suggestive of possible UTI
-possible thrombus IVC filter
-?seizure prior to admission
-chronic thrombocytopenia of unclear etiology - heme following
-recent decreased appetite
- hx grade D esophagitis and large HH
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
-HFrEF with recent admission
other med problems:
-GERD
-CKD
-minimal change disease
-severe pulm HTN
-scleroderma/lupus
-crest syndrome
-CHF
-hyperlipidemia
-DVT/PE with filter
-B12 deficiency
-hx GERD
-hypoalbuminemia
PLAN:
etiology of hypotension and tachycardia related to underlying sepsis vs GI bleeding as now passing black stools in setting of severe thrombocytopenia overnight
GI bleed -- upper source AVM/hx esophagitis large HH as recently noted on EGD in August
noted bleeding with melena this am can consider EGD if persistent symptoms but will need improved platelet count and optimized unless she becomes hemodynamically unstable , consider eventual OP colonoscopy but appear more upper GI source with
marked BUN elevation
hbg 5.8 then up to 10.3 with transfusion then back down to 8
BUN with slow improvement 99-75--72--59--50
cont work up per hospitalist team to rule out concurrent infectious process
cont clear diet
sent message to review with hematology for platelet transfusion as 23,000 this am
cont PPI IV BID
CTA as noted neg for bleeding source
correct K per medical team initially high no low
monitor for recurrent seizure
s/p vascular eval with concern for thrombus in filter
Subjective
Subjective
Date of Service: January 06, 2024
on clear diet + several black stools this am
Objective
Data Reviewed
Laboratory Data:
Laboratory Results
PT 14.5 Sec (11.4-14.6) 01/05/24 03:15
INR 1.10 01/05/24 03:15
APTT 20.3 Sec (23.4-35.0) L 01/04/24 14:59
Phosphorus 3.4 mg/dl (2.5-4.5) 01/06/24 03:38
Magnesium 1.9 mg/dl (1.6-2.3) 01/06/24 03:38
Total Bilirubin 1.7 mg/dl (0.2-1.3) H 01/06/24 03:38
AST 17 U/L (14-36) 01/06/24 03:38
ALT 22 U/L (0-35) 01/06/24 03:38
Alkaline Phosphatase 124 U/L (38-126) 01/06/24 03:38
Vital Signs and I&O:
Vital Signs
Temp Pulse Resp BP Pulse Ox
97.8 F 94 18 106/67 98
01/06/24 08:06 01/06/24 08:22 01/06/24 05:30 01/06/24 08:22 01/06/24 05:30
I&O
01/05/24 01/06/24 01/07/24
06:59 06:59 06:59
Intake Total 2990.5 / 3101.8 4522.2 / 4622.2 150 / 150
Output Total 1550 / 1550 3125 / 3125 310 / 310
Balance 1440.5 / 1551.8 1397.2 / 1497.2 -160 / -160
Physical Exam
Physical Exam
HEENT: Other (? slight jaundice )
Cardiology: Normal Sinus Rhythm
Pulmonary: Clear
GI: Soft, Non Distended and Non Tender
Rectal: Black and Hem Positive (several loose black stools this am)
Neuro: Non Focal
[2024-01-06] MEDS: SANTYL OINTMENT 1 APPLIC TOPICAL (08:39)
--- NOTE | 2024-01-06 08:45 | PN.CDI ---
CDI
- -
CDI:
Physician Documentation Request
Admit Date: 01/04/24 15:43
Dear Doctor Guy,
Patient admitted with sepsis.
01/04 Hospitalist PN: 'Septic shock secondary to acute urinary tract infection...Chronic indwelling Patel catheter - Patel status since February 2023. - Last changed in the emergency on 01-04-24.'
01/04 Surgery Aide PN: 'with history of recurrent UTIs in the past and indwelling Patel catheter since February (due to overactive bladder?)'
01/04 PCN: 'Patel catheter exchanged per order Dr Serrato and urine specimen sent to lab.'
Please clarify the relationship between these conditions:
Yes, UTI is related to/associated with/due to patel catheter.
No, UTI is not related to/associated with/due to patel catheter but it is due to ___. (Please specify)
Unable to determine
Use of terms such as suspected, likely, concern for, or probable (associated with a specific diagnosis that is being evaluated, monitored, or treated as if it exists) are acceptable and can be coded in the inpatient setting, when documented at the
time of discharge.
Thank you,
Mitali iWley RN, BSN
CDI Specialist
Available via [place] text
Please use your independent medical judgment in providing your response.
--- NOTE | 2024-01-06 08:53 | PN.CDI ---
CDI
- -
CDI:
Physician Documentation Request
Admit Date: 01/04/24 15:43
Dear Doctor Guy,
Patient admitted with sepsis.
01/04 Wound care note: 'Heels are boggy, stage 1 PI, pillows in use under calves.'
Physician documentation of the type and location of wounds is required for compliant documentation. Based on the above clinical findings and your assessment, please provide the following in your progress note:
1. Location of the ulcer/wound, including laterality.
2. Type (etiology) of ulcer/wound:
- Diabetic ulcer
- Arterial (ischemic) ulcer
- Traumatic wound
- Venous stasis ulcer
- Pressure (decubitus) ulcer
- Non-healing surgical wound
- Other
- Unable to determine
3. For a non-pressure ulcer, please indicate the depth/severity:
- Limited to the breakdown of skin
- With fat layer exposed
- With necrosis of muscle
- With necrosis of bone
- Other
- Unable to determine
4. If a pressure ulcer, please also include the stage* of the ulcer:
- Stage 1 - Skin intact, non-blanchable redness
- Stage 2 - Partial thickness loss of dermis, includes intact or open blister
- Stage 3 - Full thickness tissue not including bone, tendon or muscle
- Stage 4 - Full thickness tissue loss, including exposed bone, tendon or muscle
- Unstageable - Full thickness loss in which the base of the ulcer is covered by slough (yellow, rice, [place], green or brown) and/or eschar (rice, brown or black) in the wound bed.
- Unable to determine
Use of terms such as suspected, likely, concern for, or probable (associated with a specific diagnosis that is being evaluated, monitored, or treated as if it exists) are acceptable and can be coded in the inpatient setting, when documented at the
time of discharge.
Thank you,
Mitali Wiley RN, BSN
CDI Specialist
Available via [place] text
Please use your independent medical judgment in providing your response.
*Source: National Pressure Ulcer Advisory Panel (NPUAP)
--- NOTE | 2024-01-06 09:18 | W.PN.ID1 ---
Date of Service
Date of Service: January 06, 2024
Today's Communication
Replace Zosyn with ceftriaxone pending Ucx.
Assessment / Plan
# Ongoing GIB, blood loss anemia
# SIRS/shock, on 2 pressors
# Acute on chronic thrombocytopenia
# Chronic patel
- Of note,pt with h/o chronic hypotension (SPB 80's-90's)
- Admission HgB 5.8. -> per GI, slow bleed from AVM, and therefore not source of shock.
- H/H drifting down with maroon stools today.
- Workup for infection in progress.
Afebrile.
CXR neg acute change
CT scan suggestive of right complicated UTI. Interestingly, admission UA nonsignificant wbc of only 3-5. Ucx >100K mixed mark, contaminant.
Blood cx's neg to date.
Follow pending repeat Ucx after patel changed
- DC Zosyn - in case contributing to worsening thrombocytopenia
- Replace with ceftriaxone for now pending Ucx.
# IVC filter with thrombus
# hx of PE
# Conditions MANAGER CRISIS
CREST syndrome with Lupus/scleroderma overlap
Chronic hypotension on midodrine
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
CKD3
Urinary retention with chronic patel
HFpEF
HTN
Chronic thrombocytopenia
Pulmonary hypertension
PE 2006
IVC filter placement 2007
Bilateral total hip arthroplasty
Hysterectomy
Perineoplasty
Chief Complaint
-: Other (Hypotension)
Subjective / Review of Systems
Pt noted to have maroon stools this am.
Pt without specific complaints.
Vital Signs / Physical Exam
Vital Signs
Vital Signs
Temp Pulse Resp BP Pulse Ox
97.8 F 76 23 83/70 95
01/06/24 08:06 01/06/24 09:00 01/06/24 09:00 01/06/24 09:00 01/06/24 09:10
Physical Exam
Constitutional: No Acute Distress and Comfortable
Cardiovascular: Regular Rate and S1/S2
Pulmonary: Clear
Gastrointestinal: Soft, Non Tender, Non Distended and Normal Bowel Sounds
Genito-Urinary: Patel
Extremities: Edema
Neurological: AO x 3
Objective Data
Lab Data
PT 14.5 Sec (11.4-14.6) 01/05/24 03:15
INR 1.10 01/05/24 03:15
APTT 20.3 Sec (23.4-35.0) L 01/04/24 14:59
Estimated Creat Clear 43 ml/min 01/06/24 03:38
Lactic Acid 3.0 mmol/L (0.7-2.0) H 01/06/24 03:38
Total Bilirubin 1.7 mg/dl (0.2-1.3) H 01/06/24 03:38
AST 17 U/L (14-36) 01/06/24 03:38
ALT 22 U/L (0-35) 01/06/24 03:38
Alkaline Phosphatase 124 U/L (38-126) 01/06/24 03:38
Most recent labs reviewed.
Micro Results:
01/04/24 14:58 Blood Culture - Preliminary
Blood/Venous No Growth in 24 hours- Final report to follow
01/04/24 22:11 MRSA Screen - Final
Nose No Methicillin Resistant Staphylococcus aureus isolated.
01/04/24 14:58 Blood Culture - Preliminary
Blood/Venous No Growth in 24 hours- Final report to follow
01/05/24 13:14 Urine Culture - Pending
Urine
01/04/24 13:37 Urine Culture - Final
Urine
01/04/24 CT a/p: No CTA evidence for acute active gastrointestinal hemorrhage. Small amount of air in the right intrarenal collecting system and right renal pelvis (either secondary to emphysematous pyelitis or recent instrumentation). Mild debris
in the distended right renal pelvis. Moderate distention of the right renal pelvis and right upper pole intrarenal calyces. Mild urothelial thickening and mild distention of the right ureter suggesting ascending urinary tract infection. Patel
catheter in moderate air in the urinary bladder. Infrarenal IVC filter containing thrombus.
01/04/24 CXR: No acute pulmonary process identified.
--- NOTE | 2024-01-06 09:56 | W.PN.ONC ---
Today's Communication / Plan
-
Transfuse 1 unit plts
Transfuse PRBC if hgb<7
Continue to monitor blood counts and vitals
Continue antibiotic
Awaiting repeat UCx
Impression
Impression
73-year-old female with history of chronic steroid therapy for minimal-change disease/systemic lupus erythematous, chronic anemia and thrombocytopenia, HFpEF presenting with weakness:
# Sepsis
- Concern for urosepsis with fever, leukocytosis, elevated lactate, abnormal UA vs GI bleeding
- Repeat UCx pending after Savage changed
- BC no growth in 24 hrs
- Lactate initially downtrended but rising since yesterday
- Continue pressors, wean as tolerated
- CT abdomen pelvis shows no evidence of acute GI bleeding and is suggestive of possible UTI.
- GI following - per GI, etiology of hypotension and tachycardia related to underlying sepsis vs GI bleeding as now passing black stools
- ID following, changed Zosyn to Ceftriaxone today in case contributing to worsening thrombocytopenia
- Continue to monitor clinically
# Anemia
- Acute on chronic, likely in the setting of sepsis, and chronic kidney disease
- Hemoglobin 8.0 today (RDW 22, MCV 95), status post 2 units PRBC
- GI following, can consider EGD if symptoms persist and eventual OP colonoscopy, likely upper GI source as BUN elevated
- Outpatient follow-up with Dr. Baldwin for evaluation of anemia and thrombocytopenia
- Vitamin B12 normal
- JHON negative, no active hemolysis
- Continue to monitor blood counts
- Transfuse if hemoglobin less than 7
# Thrombocytopenia
- Etiology unclear, medication induced versus sepsis
- Vitamin B12 normal
- Continue to monitor platelet counts
- Transfuse if active bleeding + platelets lower than 50K, will transfuse 1 unit plts today
- Outpatient follow-up Dr. Baldwin for evaluation of anemia and thrombocytopenia
# Hypokalemia
- treatment per hospitalist team
# Hyponatremia now resolved
# History of concern for bladder cancer - outpatient follow-up with urology
Subjective/Objective
Subjective/Objective
Vital Signs:
Vital Signs
Temp Pulse Resp BP Pulse Ox
97.8 F 76 23 83/70 94
01/06/24 08:06 01/06/24 09:00 01/06/24 09:00 01/06/24 09:00 01/06/24 09:22
Lab Results:
Laboratory Data
WBC 9.6 10^3/uL (4.8-10.8) 01/06/24 03:38
Hgb 8.0 g/dL (12.0-16.0) L 01/06/24 03:38
Plt Count 23 10^3/uL (130-400) L* D 01/06/24 03:38
PT 14.5 Sec (11.4-14.6) 01/05/24 03:15
INR 1.10 01/05/24 03:15
APTT 20.3 Sec (23.4-35.0) L 01/04/24 14:59
eGFR > 60.00 01/06/24 03:38
Orders
Orders
Orders From Last 24 Hours
01/05/24 11:18
Add On- LAB Routine
--- NOTE | 2024-01-06 10:19 | W.PN.ONC2 ---
Today's Communication / Plan
-
daily CBC, transfuse prn
Impression
Impression
73-year-old female with history of chronic steroid therapy for minimal-change disease/systemic lupus erythematous, chronic anemia and thrombocytopenia, HFpEF presenting with weakness:
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
# Anemia Acute on chronic, likely in the setting of sepsis, and chronic kidney disease
- GI following, can consider EGD if symptoms persist and eventual OP colonoscopy, likely upper GI source as BUN elevated
- JHON negative, no active hemolysis
- Transfuse if hemoglobin less than 7, s/p 2unti prbc, last 01/03
# Thrombocytopenia, baseline ~70,000 since July 2023
- acute on chronic likely consumptive in the setting of infection +/- medication
-check DIC panel
- Transfuse if platelets lower than 20K in the setting of sepsis, s/p 2 platelet transfusions, last 01/04
# History of concern for bladder cancer - outpatient follow-up with urology
Plan
Plan
Outpatient follow-up Dr. Baldwin for evaluation of anemia and thrombocytopenia
Subjective/Objective
Subjective
no new complaints
denies bleeding
Vital Signs:
Vital Signs
Temp Pulse Resp BP Pulse Ox
97.8 F 95 28 104/58 96
01/06/24 08:06 01/06/24 10:04 01/06/24 10:04 01/06/24 10:04 01/06/24 10:00
Lab Results:
Laboratory Data
WBC 9.6 10^3/uL (4.8-10.8) 01/06/24 03:38
Hgb 8.0 g/dL (12.0-16.0) L 01/06/24 03:38
Plt Count 23 10^3/uL (130-400) L* D 01/06/24 03:38
PT 14.5 Sec (11.4-14.6) 01/05/24 03:15
INR 1.10 01/05/24 03:15
APTT 20.3 Sec (23.4-35.0) L 01/04/24 14:59
eGFR > 60.00 01/06/24 03:38
[2024-01-06] MEDS: REVATIO 20 MG PO (11:27)
--- NOTE | 2024-01-06 11:30 | PTCARENOTE ---
Bedsides round complete. Sildenafil ordered x1 and Albumin x2 bags. 1 unit plt ordered, when ready will be hung. Pressors maintained (see worklist). No new changes in assessment.
[2024-01-06 12:07] LABS: Glucose - Point of Care 238 mg/dl (70-99)
[2024-01-06 12:40] LABS: Lactic Acid 3.3 mmol/L (0.7-2.0)
[2024-01-06 12:41] LABS: Hemoglobin 7.7 g/dL (12.0-16.0); Mean Corpuscular Hgb 33.2 pg (27.0-31.0); Mean Corpuscular Volume 94.8 fL (81.0-99.0); Mean Platelet Volume 12.2 fL (7.4-10.4); Platelet Count 17 10^3/uL (130-400); Red Blood Cell Count 2.32 10^6/uL (4.20-5.40); Red Cell Dist. Width 22.3 % (11.5-14.5); White Blood Cell Count 9.4 10^3/uL (4.8-10.8)
--- NOTE | 2024-01-06 12:43 | W.PN.HOSP.TC ---
Addendum entered and electronically signed by Tim Pickett MD 01/06/24 15:19:
seen and examined by me independently in collaboration with the medical dermatologist Reji.
Lab data and imaging data reviewed.
Addendum as below :
Feels improved compared to what she was at home.
Denies any nausea vomiting or abdominal pain.
Denies any shortness of breath or chest pain.
Afebrile. Blood pressure okay but requiring vasopressor support.
Chest CTA;no resp distress.
Abdo soft.
Shock suspected septic. Continue with antibiotics per appreciate ID input. Current coverage is for possible source of based on the CT of the abdomen pelvis.
Heme positive stools with severe anemia requiring transfusion support. Continue with PPI. GI following.
Acute on chronic thrombocytopenia with drop in platelets suspect may be combination of chronic issue with sepsis. Transfuse platelets today hematology following. Plan for outpatient bone marrow biopsy noted.
Discontinue prednisone and start on stress dose steroids with hydrocortisone 100 mg every 8 hours due to hemodynamic instability.
Appreciate vascular input regarding IVC filter on focal thrombosis. Anticoagulations once stable from thrombocytopenia and GI bleeding standpoint. Not a candidate for retrieval.
Discussed with icing and glaze maker.
Total time spent on today's encounter was 52 minutes which included time spent in counseling the patient regarding diagnosis and treatment plan as listed above, goals of care, and symptom management. Case was discussed with nursing staff,
specialists . All labs and imaging personally reviewed by me. Remainder the time spent in detailed review of previous records, lab data, imaging, and other medical provider documentation.
Original Note:
Today's Communication/Plan
-
* Continue ceftriaxone.
* IV hydration and pantoprazole BID.
* Trend CBC and BMP.
* Wean pressors.
* Stress-dose steroids.
* Transfuse as needed.
Assessment / Plan
Assessment / Plan
Assessment
Meka Nash, age 73, was brought to the hospital from [facility] on 01-04-24 with progressive fatigue, reduced oral intake and altered mental status. In the emergency, she was found to have a hemoglobin of 5.8, lactic acid of 7.4, potassium of
6.2, platelet count of 51 and UA suspicious for infection. She had hypotensive unresponsive to fluids, and required pressors. She received 2 units of pRBC and was started on norepinephrine. Admitted to the ICU with hemorrhagic vs. septic shock, vs.
mixed.
Impression and plan
Septic shock secondary to acute urinary tract infection
Possibly related to indwelling Savage
- Possibly in addition to hemorrhagic shock.
- CT AP suspicious for ascending UTI.
- Afebrile so far; vitals improving.
- Urine and blood cultures pending.
- Wean pressors as tolerated.
- Maintain Savage.
- Narrow piperacillin-tazobactam to ceftriaxone.
- Infectious disease following.
Hemorrhagic shock secondary to acute painless gastrointestinal bleed
Acute blood loss on chronic anemia
Acute on chronic thrombocytopenia
- Heme+ stools this admission, and prior history of angioectasia.
- Status-post 2 units of pRBC and 1 unit of platelets in the emergency.
- Follow CBC.
- Transfuse for hemoglobin <7 and platelet <10.
- Continue IV pantoprazole BID.
- Gastroenterology following.
Metabolic acidosis secondary to above
- Trend lactic acid.
- IV hydration.
Dyskalemia
- Hyperkalemia on presentation treated with insulin, calcium gluconate, D50 and sodium bicarbonate.
- Hypokalemia after admission with repletion; replete to keep potassium >4.
- Follow BMP.
Acute kidney injury
- Resolving.
- IV hydration.
- Follow BMP.
Hyperbilirubinemia
- Unlikely transfusion-related.
- Trend bilirubin.
Chronic urinary retention
Chronic indwelling Savage catheter
- Savage status since February 2023.
- Last changed in the emergency on 01-04-24.
Infrarenal IVC filter thrombosis
History of bilateral pulmonary embolism
- Not on anticoagulation; will need anticoagulation after platelet count has been optimized.
- Filter placed around 2009.
- Was not removed when patient was lost to follow-up, according to daughter.
- No indication for interventions, per vascular surgery.
Chronic bicytopenia
- New-onset worsening anemia and thrombocytopenia.
- Baseline hemoglobin around 8.
- Followed at [place]; on-going discussions about a potential bone marrow biopsy outpatient.
Scleroderma/SLE
- On prednisone 50 mg daily at the time of this admission.
- Stress dose IV hydrocortisone 100 mg Q8H.
Chronic heart failure with preserved ejection fraction
Valvular heart disease
Pulmonary hypertension
- Not in acute flare.
- Hold diuretics.
Essential hypertension
- Hold metoprolol.
Gastroesophageal reflux disease
Hiatal hernia
- IV pantoprazole.
Chronic constipation
- Dulcolax and polyethylene glycol as needed.
Sacral wound, stage III
Decubitus heel wound, stage I
- Possibly related to fecal incontinence and/or pressure.
- Wound care following.
Thromboprophylaxis
- Sequential compression devices.
Code status
- Full.
Anticipated Discharge: > 48 hours
Subjective/Interval History
-
Date of Service: January 06, 2024
Melena noted this morning. Drop in hemoglobin and increase in lactic acid. Increased pressor demands. Patient asymptomatic and stable.
Objective Data
-
Labs:
Laboratory Results
01/06/24 01/06/24 01/06/24
03:38 10:00 12:06
WBC 9.6 9.4
Hgb 8.0 L 7.7 L
Hct 22.3 L 22.0 L
Plt Count 23 L* D 17 L* D
Sodium 136 Cancelled Pending
Potassium 2.2 L* D Cancelled Pending
Chloride 94 L Cancelled Pending
Carbon Dioxide 28 Cancelled Pending
BUN 50 H Cancelled Pending
Creatinine 1.0 Cancelled Pending
Glucose 198 H Cancelled Pending
Calcium 8.5 Cancelled Pending
Total Bilirubin 1.7 H
AST 17
ALT 22
Alkaline Phosphatase 124
01/06/24
20:00
WBC Pending
Hgb Pending
Hct Pending
Plt Count Pending
Sodium
Potassium
Chloride
Carbon Dioxide
BUN
Creatinine
Glucose
Calcium
Total Bilirubin
AST
ALT
Alkaline Phosphatase
Vital Signs:
Vital Signs
Temp Pulse Resp BP Pulse Ox
98.0 F 95 28 104/58 96
01/06/24 11:37 01/06/24 10:04 01/06/24 10:04 01/06/24 10:04 01/06/24 10:00
I&O
01/05/24 01/06/24 01/07/24
06:59 06:59 06:59
Intake Total 2990.5 / 3101.8 4522.2 / 4728.7 924.0 / 924.0
Output Total 1550 / 1550 3125 / 3125 685 / 685
Balance 1440.5 / 1551.8 1397.2 / 1603.7 239.0 / 239.0
Review of Systems
-
History Source: Patient
Constitutional: Reports Fatigue (improved)
EENT: Reports No Symptoms Reported
Respiratory: Reports No Symptoms
Cardiac: Reports No Symptoms
Abdomen/GI: Reports No Symptoms
Breast: Reports No Symptoms
Genitourinary: Reports No Symptoms
Musculoskeletal: Reports No Symptoms
Skin: Reports No Symptoms
Neuro: Reports No Symptoms
Endocrine: Reports No Symptoms
Hematologic / Lymphatic: Reports No Symptoms
Allergy / Immunology: Reports No Symptoms
Physical Exam
-
General: No Apparent Distress and Comfortable
HEENT: Normocephalic, Atraumatic, Moist Mucous Membranes, Anicteric and No Ptosis
Respiratory: Clear to Auscultation and Non Labored Respirations
Cardiac: Regular Rhythm and S1/S2
GI: Soft, Nontender and Nondistended
Genito-urinary: No Costovertebral Tender
Musculoskeletal: No Clubbing and No Cyanosis
Skin: Warm, Dry and IV Access / Catheter Site
Neuro: Awake, Alert, Oriented and No Motor Deficits
Hematologic / Lymphatic: No Lymphadenopathy
Psych: Calm and Intact Judgement/Insight
[2024-01-06 12:52] LABS: Blood Urea Nitrogen 41 mg/dl (7-17); Calcium 8.5 mg/dl (8.4-10.2); Carbon Dioxide 30 mmol/L (22-30); Chloride 94 mmol/L (98-107); Estimated Creatinine Clearance 43 ml/min; Glucose 193 mg/dl (70-99); Potassium 2.8 mmol/L (3.5-5.1); Sodium 135 mmol/L (135-145); eGFR > 60.00
[2024-01-06] MEDS: NOVOLOG FLEXPEN-MODERATE RESISTANCE 3 UNITS SC (12:59)
[2024-01-06] MEDS: FLEXBUMIN 100 IV ×2 (13:01→15:30)
[2024-01-06] MEDS: STERILE WATER FOR INJECTION 10 ML IV (13:40)
[2024-01-06] MEDS: ProAmatine 10 MG PO ×2 (13:40→17:16)
[2024-01-06] MEDS: ROCEPHIN 1000 MG IV (13:41)
[2024-01-06] MEDS: SOLU-CORTEF 100 MG IV ×2 (15:31→23:49)
--- NOTE | 2024-01-06 15:43 | PTCARENOTE ---
1 unit of plt hanging. 15 min VS check complete, VSS.
--- NOTE | 2024-01-06 16:09 | VATNOTE ---
PICC order noted. Patient with minimal vessels seen with ultrasound. Attempted placement, unable to thread wire more than a few CMs. Primary RN made aware, recommend IJ TLC be placed.
--- NOTE | 2024-01-06 16:41 | PTCARENOTE ---
Levo gtt @ 5 mcgs, Dr. Goodrich states vaso gtt can be turned off once levo gtt is @ 5 mcgs, vaso gtt off (see worklist).
--- NOTE | 2024-01-06 16:50 | PTCARENOTE ---
Dr. Goodrich notified about VAT unable to place PICC line. Unable to place another central line until plts are >30.
[2024-01-06] MEDS: NOVOLOG FLEXPEN-MODERATE RESISTANCE 1 UNITS SC (17:15)
[2024-01-06] MEDS: NOVOLIN N vial 0.05 UNITS SC (17:15)
[2024-01-06 17:27] LABS: Glucose - Point of Care 177 mg/dl (70-99)
[2024-01-06 19:51] LABS: Lactic Acid 2.5 mmol/L (0.7-2.0)
[2024-01-06 20:00] LABS: ALT (SGPT) 23 U/L (0-35); AST (SGOT) 18 U/L (14-36); Albumin 3.8 g/dl (3.5-5.0); Alkaline Phosphatase 102 U/L (38-126); Blood Urea Nitrogen 31 mg/dl (7-17); Calcium 8.8 mg/dl (8.4-10.2); Carbon Dioxide 30 mmol/L (22-30); Chloride 95 mmol/L (98-107); Estimated Creatinine Clearance 47 ml/min; Glucose 106 mg/dl (70-99); Potassium 2.5 mmol/L (3.5-5.1); Sodium 139 mmol/L (135-145); Total Bilirubin 2.8 mg/dl (0.2-1.3); Total Protein 5.6 g/dl (6.3-8.2); eGFR > 60.00
[2024-01-06 20:20] LABS: Hematocrit 17.1 % (37.0-47.0); Mean Corp Hgb Conc. 35.1 g/dL (33.0-37.0); Mean Corpuscular Hgb 33.9 pg (27.0-31.0); Mean Corpuscular Volume 96.6 fL (81.0-99.0); Mean Platelet Volume 10.7 fL (7.4-10.4); Platelet Count 37 10^3/uL (130-400); Red Blood Cell Count 1.77 10^6/uL (4.20-5.40); Red Cell Dist. Width 22.3 % (11.5-14.5); White Blood Cell Count 7.4 10^3/uL (4.8-10.8)
[2024-01-06] MEDS: KCL 40 MEQ PO (20:20)
[2024-01-06 20:58] LABS: Hematocrit 17.4 % (37.0-47.0)
--- NOTE | 2024-01-06 21:06 | PTCARENOTE ---
report received. assessments per work list. labs sent. patient c/o pain sacrum. medicated with Tylenol per prn order. poor oral intake. monitor nsr. left femoral triple lumen with good blood returns. Levophed infusing without issue. lungs with
basilar crackles. +2 generalized anasarca. abdomen soft, hyperactive bowel sounds. incontinent small amount black stool. patel draining yellow urine with sediment. critical results. HH redrawn per exhaust worker PSYCHOMETRIC EXAMINER order. drawn from midline. results
unchanged. orders received.
[2024-01-06] MEDS: ZOFRAN 4 MG IV (21:42)
--- NOTE | 2024-01-06 21:55 | PTCARENOTE ---
patient c/o nausea, Pipe Cleaning Machine Operator COUNT ROOM CLERK updated. unit PRBC initiated. pulse oximeter 83-88. lungs with crackles as per initial assessment. tannery gummer COUNT ROOM CLERK at bedside. placed on 1 liter oxygen nasal cannula. afebrile. continues to be nauseated in spite
of zofran. pulse oximeter 98 on 1 liter.
[2024-01-06] MEDS: REVATIO PO (21:58)
[2024-01-06] MEDS: LANTUS 0.12 UNITS SC (22:01)
[2024-01-06 22:09] LABS: Glucose - Point of Care 143 mg/dl (70-99)
[2024-01-07] VITALS (61 sets, daily range): BP systolic 89–127; BP diastolic 58–88; BMI 26.1
--- NOTE | 2024-01-07 00:10 | PTCARENOTE ---
patient reassessed, sleeping short periods. denies nausea or pain. weaning levophed per work list. PRBC transfusing without s/s reaction. breath sounds unchanged. call almaraz in reach
[2024-01-07] MEDS: KCL 100 IV (02:07)
[2024-01-07 05:25] LABS: Hematocrit 24.4 % (37.0-47.0); Hemoglobin 8.4 g/dL (12.0-16.0); Mean Corp Hgb Conc. 34.4 g/dL (33.0-37.0); Mean Corpuscular Hgb 31.1 pg (27.0-31.0); Mean Corpuscular Volume 90.4 fL (81.0-99.0); Mean Platelet Volume 10.9 fL (7.4-10.4); Platelet Count 32 10^3/uL (130-400); Red Cell Dist. Width 23.3 % (11.5-14.5); White Blood Cell Count 7.4 10^3/uL (4.8-10.8)
[2024-01-07 05:28] LABS: INR 1.07; PT 14.5 Sec (11.4-14.6)
[2024-01-07 05:29] LABS: APTT 24.4 Sec (23.4-35.0); Fibrinogen 240 MG/DL (199-459)
[2024-01-07 05:32] LABS: Lactic Acid 1.8 mmol/L (0.7-2.0)
[2024-01-07 05:35] LABS: ALT (SGPT) 24 U/L (0-35); AST (SGOT) 18 U/L (14-36); Albumin 3.5 g/dl (3.5-5.0); Alkaline Phosphatase 117 U/L (38-126); Blood Urea Nitrogen 28 mg/dl (7-17); Calcium 9.3 mg/dl (8.4-10.2); Carbon Dioxide 32 mmol/L (22-30); Chloride 101 mmol/L (98-107); Estimated Creatinine Clearance 47 ml/min; Glucose 92 mg/dl (70-99); Magnesium 1.9 mg/dl (1.6-2.3); Phosphorus 3.1 mg/dl (2.5-4.5); Potassium 4.7 mmol/L (3.5-5.1); Sodium 140 mmol/L (135-145); Total Bilirubin 1.9 mg/dl (0.2-1.3); Total Protein 5.3 g/dl (6.3-8.2); eGFR > 60.00
--- NOTE | 2024-01-07 06:05 | PTCARENOTE ---
patient slept long periods unless disturbed. am care provided, reassessed. labs sent and resulted. coarse breath sounds with basilar crackles. oxygen continues as pulse oximeter in the 80's on room air when asleep. protective foams placed on shins
and left upper arm(areas bruised but skin intact). blood pressure cuff rotated to left forearm. levophed per work list
[2024-01-07 06:08] LABS: D-Dimer 1.51 ug/mlFEU (0.00-0.50)
[2024-01-07 07:46] LABS: Glucose - Point of Care 113 mg/dl (70-99)
--- NOTE | 2024-01-07 08:15 | W.PN.HOSP.TC ---
Addendum entered and electronically signed by Tim Pickett MD 01/07/24 16:41:
Seen and examined by me independently in collaboration with the medical practice assistant Reji.
Lab data and imaging data reviewed.
Addendum as below :
Patient feels improved in general since admission. Blood pressure stabilized. Off of pressors this afternoon.
Afebrile. Nontoxic. Continue with antibiotics per ID for coverage.
With regards to bleeding and heme positive stools patient has ongoing needs of PRBC. Also getting platelets due to her chronic thrombocytopenia and the bleeding. Seen by GI felt may be secondary to grade D esophagitis plus or minus angiectasia's.
They recommend conservative management of transfusion support, PPI and optimize platelet count. At some point need bone marrow biopsy for evaluation of chronic thrombocytopenia.
Discussed with daughter at bedside.
Original Note:
Today's Communication/Plan
-
* Continue ceftriaxone.
* IV hydration and pantoprazole BID.
* Trend CBC and electrolytes.
* Wean pressors.
* Stress-dose steroids.
* Transfuse as needed.
* Advance diet.
Assessment / Plan
Assessment / Plan
Assessment
Meka Nash, age 73, was brought to the hospital from [facility] on 01-04-24 with progressive fatigue, reduced oral intake and altered mental status. In the emergency, she was found to have a hemoglobin of 5.8, lactic acid of 7.4, potassium of
6.2, platelet count of 51 and UA suspicious for infection. She had hypotensive unresponsive to fluids, and required pressors. She received 2 units of pRBC and was started on norepinephrine. Admitted to the ICU with hemorrhagic vs. septic shock, vs.
mixed.
Impression and plan
Hemorrhagic shock secondary to acute painless gastrointestinal bleed
Acute blood loss on chronic anemia
Acute on chronic thrombocytopenia
- Heme+ stools this admission, and prior history of angioectasia.
- Status-post 3 units of pRBC and 3 units of platelets so far.
- Follow CBC.
- Transfuse for hemoglobin <7 and platelet <10.
- Continue IV pantoprazole BID.
- Gastroenterology following.
Septic shock secondary to acute complicated urinary tract infection
Possibly related to indwelling Savage
- Possibly in addition to hemorrhagic shock.
- CT AP suspicious for ascending UTI.
- Afebrile so far; vitals improving.
- Urine and blood cultures no growth.
- Wean pressors as tolerated.
- Maintain Savage.
- Continue ceftriaxone (day 4 of antibiotics).
- Infectious disease following.
Metabolic acidosis secondary to above
- Trend lactic acid.
- IV hydration.
Dyskalemia
- Hyperkalemia on presentation treated with insulin, calcium gluconate, D50 and sodium bicarbonate.
- Hypokalemia after admission with repletion; replete to keep potassium >4.
- Follow BMP.
Acute kidney injury
- Resolving.
- IV hydration.
- Follow BMP.
Hyperbilirubinemia
- Unlikely transfusion-related.
- Trend bilirubin.
Chronic urinary retention
Chronic indwelling Savage catheter
- Savage status since February 2023.
- Last changed in the emergency on 01-04-24.
Infrarenal IVC filter thrombosis
History of bilateral pulmonary embolism
- Not on anticoagulation; will need anticoagulation after platelet count has been optimized.
- Filter placed around 2009.
- Was not removed when patient was lost to follow-up, according to daughter.
- No indication for interventions, per vascular surgery.
Chronic bicytopenia
- New-onset worsening anemia and thrombocytopenia.
- Baseline hemoglobin around 8.
- Followed at [place]; on-going discussions about a potential bone marrow biopsy outpatient.
Scleroderma/SLE
- On prednisone 50 mg daily at the time of this admission.
- Stress dose IV hydrocortisone 100 mg Q8H.
Chronic heart failure with preserved ejection fraction
Valvular heart disease
Pulmonary hypertension
- Not in acute flare.
- Hold diuretics.
Essential hypertension
- Hold metoprolol.
Gastroesophageal reflux disease
Hiatal hernia
- IV pantoprazole.
Chronic constipation
- Dulcolax and polyethylene glycol as needed.
Sacral wound, stage III
Decubitus heel wound, stage I
- Sacral wound possibly related to fecal incontinence and/or pressure.
- Wound care following.
Thromboprophylaxis
- Sequential compression devices.
Code status
- Full.
Anticipated Discharge: > 48 hours
Subjective/Interval History
-
Date of Service: January 07, 2024
Hemoglobin continues to drop. Re-transfused.
Objective Data
-
Labs:
Laboratory Results
01/06/24 01/06/24 01/07/24
19:31 20:43 05:02
WBC 7.4 7.4
Hgb 6.0 L* D 6.0 L* 8.4 L D
Hct 17.1 L* 17.4 L* 24.4 L
Plt Count 37 L D 32 L
PT 14.5
INR 1.07
APTT 24.4
Sodium 140
Potassium 4.7 D
Chloride 101
Carbon Dioxide 32 H
BUN 28 H
Creatinine 0.9
Glucose 92
Calcium 9.3
Total Bilirubin 1.9 H
AST 18
ALT 24
Alkaline Phosphatase 117
01/07/24
12:00
WBC
Hgb
Hct
Plt Count
PT
INR
APTT
Sodium
Potassium Pending
Chloride
Carbon Dioxide
BUN
Creatinine
Glucose
Calcium
Total Bilirubin
AST
ALT
Alkaline Phosphatase
Vital Signs:
Vital Signs
Temp Pulse Resp BP Pulse Ox
98.6 F 76 21 116/78 94
01/07/24 08:12 01/07/24 05:00 01/07/24 05:00 01/07/24 05:00 01/07/24 05:08
I&O
01/06/24 01/07/24 01/08/24
06:59 06:59 06:59
Intake Total 4522.2 / 4728.7 4035.2 / 4035.2
Output Total 3125 / 3125 2390 / 2390
Balance 1397.2 / 1603.7 1645.2 / 1645.2
Review of Systems
-
History Source: Patient
Constitutional: Reports Fatigue (improved)
EENT: Reports No Symptoms Reported
Respiratory: Reports No Symptoms
Cardiac: Reports No Symptoms
Abdomen/GI: Reports No Symptoms
Breast: Reports No Symptoms
Genitourinary: Reports No Symptoms
Musculoskeletal: Reports No Symptoms
Skin: Reports No Symptoms
Neuro: Reports No Symptoms
Endocrine: Reports No Symptoms
Hematologic / Lymphatic: Reports No Symptoms
Allergy / Immunology: Reports No Symptoms
Physical Exam
-
General: No Apparent Distress and Comfortable
HEENT: Normocephalic, Atraumatic, Moist Mucous Membranes, Anicteric and No Ptosis
Respiratory: Clear to Auscultation and Non Labored Respirations
Cardiac: Regular Rhythm and S1/S2
GI: Soft, Nontender and Nondistended
Genito-urinary: No Costovertebral Tender
Musculoskeletal: No Clubbing, No Cyanosis, Edema, Right Lower Extrem (1+) and Edema, Left Lower Extrem (1+)
Skin: Warm, Dry and IV Access / Catheter Site
Neuro: Awake, Alert, Oriented and No Motor Deficits
Hematologic / Lymphatic: No Lymphadenopathy
Psych: Calm and Intact Judgement/Insight
[2024-01-07] MEDS: NSS (PRESERVATIVE FREE) 10 ML IV ×2 (08:34→19:47)
[2024-01-07] MEDS: NOVOLOG FLEXPEN-MODERATE RESISTANCE SC ×3 (08:34→17:56)
[2024-01-07] MEDS: SOLU-CORTEF 100 MG IV ×2 (08:35→16:33)
[2024-01-07] MEDS: PROTONIX IV 40 MG IV ×2 (08:35→19:46)
[2024-01-07] MEDS: SANTYL OINTMENT 1 APPLIC TOPICAL (08:36)
[2024-01-07] MEDS: FLUSH (NSS) 2 FLUSH IV (08:36)
[2024-01-07] MEDS: ProAmatine 10 MG PO ×3 (08:43→18:04)
[2024-01-07] MEDS: REVATIO 20 MG PO ×2 (08:44→21:53)
--- NOTE | 2024-01-07 09:00 | PTCARENOTE ---
Rec'd pt at 0700 sleeping. Does awaken easily to verbal stimuli and is alert and oriented. Affect overall is very flat and pt does need encouragement for activities. Overall states she feels ok. Denies pain. LOZA but weakly. Skin is pink wm and dry.
Sacral wound with silicone border foam over. Pt with bruising on arms and legs. Scattered. Respirs are sl shallow but non-labored. Rec'd pt initially on 2l nc with sats of 99%. Tried on RA but sats dipped to 85% and currently back on at 2l with sats
of 99%. BS are decreased at the bases with few R base crackles. Monitor SR. VS as documented. Rec'd pt on IV Levophed at 1 mcg and currently weaned to off as syst BP 108. +2-3 generalized anasarca. Deneis chest pain. + pulses. KH SCD's in place. ABd
is round with + BS. Denies nausea but states she is not hungry. Encouraged to eat something. Savage intact for yellow urine with small amt of sediment. Capped int intact R arm R arm also with Midline. Levophed had been infusing in L Femoral TLC-site
wnl. Repositioned. Call almaraz in reach. Pts daughter at the bedside and updated.
--- NOTE | 2024-01-07 09:20 | PTCARENOTE ---
Pt currently o 1l nc as sats are 99%. Dr. Canales in to see pt and spoke with pt and daughter. Wound care completed to sacral wound - pink wound bed and some whitish/yellow slough- seems like less erythema than previous picture in chart. Turned and
repositioned. Encouraged pt to order breakfast. Call almaraz in reach.
--- NOTE | 2024-01-07 09:47 | W.PN.ONC ---
Documented by User: Angela Lancaster MD, Resident 01/07/24 13:43
Today's Communication / Plan
-
Continue treatment per primary care team
Outpatient follow up with Dr. Baldwin after discharge
Impression
Impression
73-year-old female with history of chronic steroid therapy for minimal-change disease/systemic lupus erythematous, chronic anemia and thrombocytopenia, HFpEF presenting with weakness:
# Septic shock
- Concern for urosepsis with fever, leukocytosis, elevated lactate, abnormal UA
- Repeat UCx: Mixed mark present, including
Presumptive Proteus mirabilis, Presumptive Escherichia coli,
2 additional Gram negative bacilli and
Streptococcus species.
- BC no growth in 48 hrs
- Lactate now downtrending
- Off pressors this am, tolerating well
- CT abdomen pelvis shows no evidence of acute GI bleeding and is suggestive of possible UTI.
- GI following - per GI, etiology of hypotension and tachycardia related to underlying sepsis vs GI bleeding as now passing black stools
- ID following, continue ceftriaxone
- Continue to monitor clinically
# Anemia
- Acute on chronic, likely in the setting of sepsis, and chronic kidney disease
- Hemoglobin 8.4 today (RDW 23, MCV 90), status post 2 units PRBC
- GI following, can consider EGD if symptoms persist and eventual OP colonoscopy, likely upper GI source as BUN elevated
- Outpatient follow-up with Dr. Baldwin for evaluation of anemia and thrombocytopenia and possible bone marrow biopsy
- Vitamin B12 normal
- JHON negative, no active hemolysis
- Continue to monitor blood counts
- Transfuse if hemoglobin less than 7
# Thrombocytopenia
- Etiology unclear, medication induced versus sepsis
- Vitamin B12 normal
- Continue to monitor platelet counts
- Transfuse if active bleeding + platelets lower than 50K, s/p 2 units plt (transfused 1 unit plt yesterday)
- Outpatient follow-up Dr. Baldwin for evaluation of anemia and thrombocytopenia and possible bone marrow biopsy
# Hypokalemia
- Treatment per hospitalist team
- Now resolved
# Hyponatremia now resolved
# History of concern for bladder cancer - outpatient follow-up with urology
Discussed with family (son/daughter) plans after discharge and outpatient f/u with Dr. Baldwin.
Plan
Plan
Outpatient follow-up Dr. Baldwin for evaluation of anemia and thrombocytopenia
Subjective/Objective
Subjective/Objective
Vital Signs:
Vital Signs
Temp Pulse Resp BP Pulse Ox
98.6 F 81 22 106/77 100
01/07/24 08:12 01/07/24 09:30 01/07/24 09:30 01/07/24 09:30 01/07/24 09:30
Lab Results:
Laboratory Data
WBC 7.4 10^3/uL (4.8-10.8) 01/07/24 05:02
Hgb 8.4 g/dL (12.0-16.0) L D 01/07/24 05:02
Plt Count 32 10^3/uL (130-400) L 01/07/24 05:02
PT 14.5 Sec (11.4-14.6) 01/07/24 05:02
INR 1.07 01/07/24 05:02
APTT 24.4 Sec (23.4-35.0) 01/07/24 05:02
eGFR > 60.00 01/07/24 05:02
Orders
Orders
Orders From Last 24 Hours
01/06/24 11:32
Blood Bank Products [* Blood Bank Products] Routine

Documented by User: Adiel Guan MD 01/07/24 15:04
Plan
Plan
Outpatient follow-up Dr. Baldwin for evaluation of anemia and thrombocytopenia
Hematology Addendum:
Patient seen and evaluated - agree w/ resident note and plan
-continue to follow CBC
-f/u w/ Dr. Baldwin as outpt - consideration of bone marrow assessment
--- NOTE | 2024-01-07 09:57 | W.PN.ID1 ---
Date of Service
Date of Service: January 07, 2024
Today's Communication
Can continue ceftriaxone.
Assessment / Plan
# GIB, blood loss anemia
# SIRS/shock, weaned off pressors
# Acute on chronic thrombocytopenia
# Chronic patel, exchanged 01/04
- Of note,pt with h/o chronic hypotension (SPB 80's-90's)
- Admission HgB 5.8. -> per GI, slow bleed from AVM, and therefore not source of shock.
- Admission CXR neg acute change
- Blood cx's neg to date.
- CT scan suggestive of right complicated UTI. Interestingly, admission UA nonsignificant wbc of only 3-5. Ucx >100K mixed mark, contaminant.
- repeat Ucx after patel changed -> only 30K mixed mark (pt on Zosyn at the time)
- No objection to continuing ceftriaxone through 01/11/24.
# IVC filter with thrombus
# hx of PE
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
CREST syndrome with Lupus/scleroderma overlap
Chronic hypotension on midodrine
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
CKD3
Urinary retention with chronic patel
HFpEF
HTN
Chronic thrombocytopenia
Pulmonary hypertension
PE 2006
IVC filter placement 2007
Bilateral total hip arthroplasty
Hysterectomy
Perineoplasty
Chief Complaint
-: Other (Hypotension)
Subjective / Review of Systems
No new complaints today.
Daughter at bedside.
Vital Signs / Physical Exam
Vital Signs
Vital Signs
Temp Pulse Resp BP Pulse Ox
98.6 F 81 22 106/77 100
01/07/24 08:12 01/07/24 09:30 01/07/24 09:30 01/07/24 09:30 01/07/24 09:30
Physical Exam
Constitutional: Comfortable
Cardiovascular: Regular Rate
Pulmonary: Coarse (bases)
Gastrointestinal: Soft, Non Tender, Non Distended and Normal Bowel Sounds
Genito-Urinary: Patel and Clear Urine; Negative CVA Tenderness
Neurological: AO x 3
Objective Data
Lab Data
Lab Results
01/07/24 05:02
PT 14.5 Sec (11.4-14.6) 01/07/24 05:02
INR 1.07 01/07/24 05:02
APTT 24.4 Sec (23.4-35.0) 01/07/24 05:02
Estimated Creat Clear 47 ml/min 01/07/24 05:02
Lactic Acid 1.8 mmol/L (0.7-2.0) 01/07/24 05:02
Total Bilirubin 1.9 mg/dl (0.2-1.3) H 01/07/24 05:02
AST 18 U/L (14-36) 01/07/24 05:02
ALT 24 U/L (0-35) 01/07/24 05:02
Alkaline Phosphatase 117 U/L (38-126) 01/07/24 05:02
Most recent labs reviewed.
Micro Results:
01/04/24 14:58 Blood Culture - Preliminary
Blood/Venous No Growth in 48 hours- Final report to follow
01/05/24 13:14 Urine Culture - Final
Urine
01/04/24 14:58 Blood Culture - Preliminary
Blood/Venous No Growth in 48 hours- Final report to follow
01/04/24 22:11 MRSA Screen - Final
Nose No Methicillin Resistant Staphylococcus aureus isolated.
01/04/24 13:37 Urine Culture - Final
Urine
01/04/24 CT a/p: No CTA evidence for acute active gastrointestinal hemorrhage. Small amount of air in the right intrarenal collecting system and right renal pelvis (either secondary to emphysematous pyelitis or recent instrumentation). Mild debris
in the distended right renal pelvis. Moderate distention of the right renal pelvis and right upper pole intrarenal calyces. Mild urothelial thickening and mild distention of the right ureter suggesting ascending urinary tract infection. Patel
catheter in moderate air in the urinary bladder. Infrarenal IVC filter containing thrombus.
01/04/24 CXR: No acute pulmonary process identified.
--- NOTE | 2024-01-07 11:00 | PTCARENOTE ---
Changed back to RA with sats of 94%
[2024-01-07] MEDS: TYLENOL 650 MG PO (11:22)
--- NOTE | 2024-01-07 11:25 | PTCARENOTE ---
Repostioned. Did eat about 30% of Low residue diet. Encouraged to drink her Ensure clear. Medicated with Tylenol 650 mg po for c/o 8/ buttock discomfort
--- NOTE | 2024-01-07 12:11 | CM ---
Met with patient and daughter @ bedside
CM explained that [facility] accepted referral. Daughter expressed that SNF preferences are [facility], [facility], and [facility]
Sent updated clinicals to all 3 facilities via [facility]
Plan: Discharge when medical stable to SNF pending bed availability
[2024-01-07 12:18] LABS: Glucose - Point of Care 138 mg/dl (70-99)
--- NOTE | 2024-01-07 12:30 | PTCARENOTE ---
Labs sent. Overall assessment is unchanged. C/O buttock pain where her wound is. Repositioined. Several times. Dr. Goodrich in and updated. VS as documented. Lunch ordered
[2024-01-07 12:39] LABS: Potassium 4.4 mmol/L (3.5-5.1)
[2024-01-07 12:44] LABS: Hematocrit 25.5 % (37.0-47.0); Hemoglobin 8.7 g/dL (12.0-16.0); Mean Corp Hgb Conc. 34.1 g/dL (33.0-37.0); Mean Corpuscular Hgb 31.4 pg (27.0-31.0); Mean Corpuscular Volume 92.1 fL (81.0-99.0); Mean Platelet Volume 11.1 fL (7.4-10.4); Platelet Count 32 10^3/uL (130-400); Red Blood Cell Count 2.77 10^6/uL (4.20-5.40); Red Cell Dist. Width 24.3 % (11.5-14.5); White Blood Cell Count 7.6 10^3/uL (4.8-10.8)
--- NOTE | 2024-01-07 12:54 | W.PN.INTV ---
Addendum entered and electronically signed by Eduardo Goodrich MD 01/07/24 16:11:
Total time spent today was 58 minutes for this encounter. Time includes reviewing laboratory test/imaging results, reviewing pertinent medical records, obtaining and reviewing medical history, performing an appropriate exam, ordering medications,
tests and procedures. Time also includes documentation of this encounter, coordinating patient care and communicating with other healthcare professionals. Total time does not include separately billed tests performed on this date of service.
Original Note:
Today's Communication / Plan
Recommendations
Diet advanced to low residue
Continue ceftriaxone
Will try to wean off oxygen as tolerated-maintain SpO2>90
Off any pressors since 9 am-If patient remains stable and maintains BP off pressors, she could be downgraded to telemetry later in the day.
Continue to trend H&H, WBC, plt, BMP
If required,transfuse to keep hemoglobin>7
CXR
Assessment
-
73-year-old female with extensive PMH (see primary note), with history of recurrent UTIs in the past and indwelling Savage catheter since February (due to overactive bladder?), who presented from [facility] with suspected seizure (?) and
weakness/decreased oral intake for the past 4 days.
Initial labs in ED showed elevated white count and lactic acid, worsening anemia and thrombocytopenia compared to baseline, and hemodynamic instability requiring pressors. Chest x-ray (01/03) and head CT were normal-CTA suggested ascending urinary
tract infection but no evidence of active GI bleeding.
When I visited the patient this AM, vital signs were as follows: BP 108/72 (off pressors), KS 89, RR 23, O2sat 99 on 1 L oxygen. Afebrile.
# Hemorrhagic shock with component of sepsis (most likely UTI)
Patient has femoral line and 2 large-bore peripheral gauge IVs
unable to place PICC line yesterday-midline is adequate at this time- will try to DC femoral line as soon as platelets are stable
Receiving midodrine 10-vasopressin DC'd overnight-Levophed stopped this morning-will try to maintain MAP>65
Received 1 lit IV bolus yesterday-does not require further IVF treatment at this time
Stress-dose steroids restarted yesterday at a dose of 100 every 8hrs
Leukocytosis improved
lactate<2- AG closed
Vanco d/c ed on 01/03- Zosyn switched to ceftriaxone 1gr daily on 01/05 due to suspicion of causing thrombocytopenia-continue ceftriaxone per ID
Preliminary U/C suggests possible contamination-placed a new Savage- repeat U/A active
repeat U/C : 30k cfu/ml- Presumptive Proteus mirabilis, Presumptive Escherichia coli, 2 additional Gram negative bacilli and Streptococcus species. Ceftriaxone will cover cultured microorganisms.
Blood culture negative after 48 hours
Basilar crackles heard over right lung-will get a portable chest x-ray to check for any acute pathology
Patient desaturated overnight on room air-was placed on 2 L oxygen via nasal cannula-currently, saturating well on 1 lit O2 -maintain SpO2 more than 90%
Status post 3 unit PRBC-transfuse to keep hemoglobin > 7
Status post 3 unit platelets-plt counts seem to be improving- will cont to monitor-transfuse to keep platelets>50
Trend CBC, Temps, BMP
Diet advanced to low-residue
Head of bed elevation
Fall precautions
# Acute on chronic anemia
Patient had a large bowel movement yesterday evening, dark/black color
BUN improving
Hemoglobin 8.7 s/p 3 units pRBC
Continue PPI IV BID
Continue to trend H&H
Appreciate GI- May consider endoscopy after patient is stabilized
Heme-onc following-May consider eventual OP bone marrow biopsy
# Pulmonary hypertension
Restarted sildenafil
#Indirect hyperbilirubinemia
Stable
Will continue to trend LFT, bili
No signs of transfusion-related reaction
Direct Jorge negative
#Infrarenal IVC filter thrombosis
No indications for intervention at this time per vascular surgery
# Hypokalemia
Resolved
Will continue to trend K levels
Keep K>4
# Hyponatremia, hypochloremia
Resolved-likely related to reduced oral intake
# Hypomagnesemia
Resolved
# Hyperglycemia
A1c is 5.3
Most likely steroid-induced
Controlled-continue SSI and will monitor BG
Maintain euglycemia at BG 140-180
#Sacral pressure ulcer
No signs of active infection/discharge
Dressing applied-single dose of Tylenol given for pain overnight
Wound care
# DVT prophylaxis
SCD
Subjective Dataa
Subjective Data
Date of Service:
Date of Service: January 07, 2024
Subjective:
Patient does not offer any complaints except appetite still not being back to normal. Denies nausea, vomiting, abdominal pain, chest pain. Is saturating well on 1 L oxygen and is not in respiratory distress.
Less drowsy than yesterday.
Review of Systems
Cardiopulmonary: Dyspnea (Negative) and Chest Pain (Negative)
GI: Abdominal Pain (Negative), Nausea (Negative), Vomiting (Negative) and Diarrhea (Negative)
Neuro: Headache (Negative) and Dizziness (Negative)
Genitourinary: Savage
Objective Data
Data Reviewed
Vital Signs / I&O / Oxygen:
Vital Signs
Temp Pulse Resp BP Pulse Ox
97.7 F 81 22 106/77 100
01/07/24 11:30 01/07/24 09:30 01/07/24 09:30 01/07/24 09:30 01/07/24 09:30
Intake and Output
01/06/24 01/07/24 01/08/24
06:59 06:59 06:59
Intake Total 4522.2 / 4728.7 4035.2 / 4039.0 157.6 / 157.6
Output Total 3125 / 3125 2390 / 2390 205 / 205
Balance 1397.2 / 1603.7 1645.2 / 1649.0 -47.4 / -47.4
SaO2 100
Nasal Cannula flow liters per 1
minute
Physical Exam
General: Respiratory Distress (Negative), Comfortable and Other (Decreased appetite)
HEENT: Normocephalic, Anicteric, Moist Mucous Membranes and Other (Pale)
Cardiovascular: S1-S2, Regular Rhythm, Peripheral Edema (2+ bilateral pitting edema) and Other (Extremities warm to touch)
Respiratory: Crackles (Crackles heard over base of right lung) and Non-Labored Respirations
GI: Soft, Non Distended, Non Tender and Normal Bowel Sounds
Neurology: Awake, Alert, Oriented, AO x 3 and No Motor Deficits
Skin: Warm, Dry and Other (sacral ulcer with dressing)
Labs/Micro/Reports
Lab Data
01/07/24 12:19
01/07/24 12:19
Laboratory Results
01/07/24
05:02
PT 14.5
INR 1.07
APTT 24.4
Microbiology
01/04/24 14:58 Blood/Venous Blood Culture - Preliminary
No Growth in 48 hours- Final report to follow
01/05/24 13:14 Urine Urine Culture - Final
01/04/24 14:58 Blood/Venous Blood Culture - Preliminary
No Growth in 48 hours- Final report to follow
01/04/24 22:11 Nose MRSA Screen - Final
No Methicillin Resistant Staphylococcus aureus isolated.
01/04/24 13:37 Urine Urine Culture - Final
[2024-01-07] MEDS: ROCEPHIN 1000 MG IV (13:28)
[2024-01-07] MEDS: STERILE WATER FOR INJECTION 10 ML IV (13:28)
[2024-01-07] MEDS: FLUSH (NSS) 1 FLUSH IV ×2 (13:33→16:34)
--- NOTE | 2024-01-07 14:08 | W.PN.GI.CBS2 ---
Today's Communication / Plan
-
Monitor GI output, advance diet
-- Discussed with the resident, nurse and family at bedside
Assessment / Plan
-
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
LA grade D esophagitis (08/23/2023), large hiatal hernia, congested duodenal mucosa, single spot duodenum (unlikely angioectasia) treated with APC, anemia, thrombocytopenia, and osteoarthritis with recent admission. In November she presented with
weakness, fatigue, and hypotension in setting of pulm HTN and acute CHF. She was also noted with hypoxemia, hyponatremia , elevated troponin and seen by GI and heme for anemia and heme + stool. Per heme anemia likely multi factorial with
multiple illnesses, B12 deficiency, crest with GI bleeding, prior noted grade D esophagitis and prior noted AVM and to consider eventual bone marrow biopsy. She was seen by GI without overt bleeding and recommended OP follow up for colonoscopy.
She now presents with concern for seizure with decreased appetite for 4 days. On admission she is noted with hypotension requiring pressors, tachycardia, with no report of bleeding prior to admission and dark maroon heme + stool but also
reported as dark brown when temp taken rectally per staff and them melena on 01/05 after drop in BUN but also drop in platelets. She was also noted with leukocytosis, elevated lactate and hyperkalemia then hypokalmemia, ALTA, hyponatremia after
admission. . She is also noted with hbg 5.8 with BUN of 99 and elevated creat with prior 8.7 on 12/05 with platelets 51,000. She initially had decreased mentation but improvement with fluid resuscitation in ER.
01/03 CTA
1. No CTA evidence for acute active gastrointestinal hemorrhage.
2. Severe diverticulosis in the sigmoid colon.
3. Severe chronic bilateral renal disease.
4. Small amount of air in the right intrarenal collecting system and right renal pelvis (either secondary to emphysematous pyelitis or recent instrumentation). Mild debris in the distended right renal pelvis. Moderate distention of the right renal
pelvis and right upper pole intrarenal calyces. Mild urothelial thickening and mild distention of the right ureter suggesting ascending urinary tract infection.
5. Savage catheter in moderate air in the urinary bladder.
6. Infrarenal IVC filter containing thrombus.
7. Moderate to severe pancreatic parenchymal atrophy.
8. Large hiatal hernia.
9. Mild cardiomegaly.
10. Severe discogenic degenerative disease and facet joint arthrosis in the lower lumbar spine.
11. Bilateral total hip arthroplasties in place.
-hypotension with need for pressors on admission
-concern for sepsis with fever, leukocytosis, elevated lactate- trending down
-hyperkalemia then hypokalemia
-acute on chronic anemia with melena after admission
-CTA suggestive of possible UTI
-possible thrombus IVC filter
-?seizure prior to admission
-chronic thrombocytopenia of unclear etiology - heme following
-recent decreased appetite
- hx grade D esophagitis and large HH
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
-HFrEF with recent admission
other med problems:
-GERD
-CKD
-minimal change disease
-severe pulm HTN
-scleroderma/lupus
-crest syndrome
-CHF
-hyperlipidemia
-DVT/PE with filter
-B12 deficiency
-hx GERD
-hypoalbuminemia
01/06/24
etiology of hypotension and tachycardia related to underlying sepsis vs GI bleeding as now passing black stools in setting of severe thrombocytopenia overnight
GI bleed -- upper source AVM/hx esophagitis large HH as recently noted on EGD in August
noted bleeding with melena this am can consider EGD if persistent symptoms but will need improved platelet count and optimized unless she becomes hemodynamically unstable , consider eventual OP colonoscopy but appear more upper GI source with
marked BUN elevation
hbg 5.8 then up to 10.3 with transfusion then back down to 8
BUN with slow improvement 99-75--72--59--50
cont work up per hospitalist team to rule out concurrent infectious process
cont clear diet
sent message to review with hematology for platelet transfusion as 23,000 this am
cont PPI IV BID
CTA as noted neg for bleeding source
correct K per medical team initially high no low
monitor for recurrent seizure
s/p vascular eval with concern for thrombus in filter
01/07/24 -etiology of her bleeding is likely her suspected/continued esophagitis from her large hiatal hernia. She has been on Nexium 20 mg at home. She denies any upper GI symptoms like reflux, regurgitation, esophageal burning. No dysphagia.
-- Follow with CREST syndrome most patients will have angioectasias which can bleed especially when she has significant thrombocytopenia
-- So overall bleeding is likely secondary to her grade D esophagitis (found in August with Dr. Saxena) + angioectasias in the setting of thrombocytopenia
-- Now that her infection is likely being treated her platelet counts are improving and hopefully this is stopping her bleeding
-- She is on twice daily PPI and when she goes home she should be on 40 mg twice daily for at least a month then 40 mg indefinitely in the setting of a large hiatal hernia with prior grade D esophagitis
-- Pending her health at some point she should get a repeat endoscopy to ensure the esophagitis has improved and that there is no malignancy underneath it
-- Her repeat hemoglobin this afternoon has also been stable. Her platelet counts continue to improve. Will monitor
-- Advance diet
Subjective
Subjective
Date of Service: January 07, 2024
Patient is had no further bleeding. Hemoglobin responded well
Patient is here with her daughter. She denies any chronic upper GI symptoms. Last stool was yesterday and black. No bowel movements today
Objective
Data Reviewed
Laboratory Data:
Laboratory Results
PT 14.5 Sec (11.4-14.6) 01/07/24 05:02
INR 1.07 01/07/24 05:02
APTT 24.4 Sec (23.4-35.0) 01/07/24 05:02
Phosphorus Cancelled 01/07/24 06:00
Magnesium Cancelled 01/07/24 06:00
Total Bilirubin 1.9 mg/dl (0.2-1.3) H 01/07/24 05:02
AST 18 U/L (14-36) 01/07/24 05:02
ALT 24 U/L (0-35) 01/07/24 05:02
Alkaline Phosphatase 117 U/L (38-126) 01/07/24 05:02
Vital Signs and I&O:
Vital Signs
Temp Pulse Resp BP Pulse Ox
97.7 F 94 22 107/66 100
01/07/24 11:30 01/07/24 13:27 01/07/24 09:30 01/07/24 13:27 01/07/24 09:30
I&O
01/06/24 01/07/24 01/08/24
06:59 06:59 06:59
Intake Total 4522.2 / 4728.7 4035.2 / 4039.0 157.6 / 157.6
Output Total 3125 / 3125 2390 / 2390 205 / 205
Balance 1397.2 / 1603.7 1645.2 / 1649.0 -47.4 / -47.4
Physical Exam
Physical Exam
HEENT: Anicteric
GI: Soft, Non Distended and Non Tender
Neuro: Non Focal
[2024-01-07] MEDS: ROXICODONE 5 MG PO ×2 (15:19→21:52)
--- NOTE | 2024-01-07 15:25 | PTCARENOTE ---
Hr 108-115- ST Pt states she is just uncomfortable despite very frequent repositioning. States her buttocks just hurt. Medicated with Roxicodone 5 mg po for 8/10 buttock soreness. Repositioned on her R side. Taking few sips of her Ensure clear.
Call almaraz in reach
--- NOTE | 2024-01-07 16:47 | PTCARENOTE ---
Pt slept after the Oxycodone. Currently awake and states it helped the pain. IV team here and L femoral TLC removed per md order at 1630. Pressure held over the site and site redressed with Quik clot over site. No swelling drainage or hematoma
currently. Will keep pt flat until 1700. Call almaraz in reach.
[2024-01-07] MEDS: REVATIO PO (17:09)
[2024-01-07 17:39] LABS: Glucose - Point of Care 115 mg/dl (70-99)
[2024-01-07] MEDS: LIPITOR 10 MG PO (18:04)
--- NOTE | 2024-01-07 18:15 | PTCARENOTE ---
L femoral site wnl. No swelling or drainage. Repositioned. Stated earlier Roxicodone did help the buttock pain and is more comfortable. Awaiting dinner.
--- NOTE | 2024-01-07 19:15 | PTCARENOTE ---
Received patient at 1900. Pt. currently awake, alert, and oriented. Assisted in setting up dinner tray. Pt. eating. Denies pain/discomfort at this time. Afebrile. Heart rhythm sinus. Blood pressure normotensive. Currently on room air. Lungs sound
diminished. PO diet, eating but has poor appetite. Chronic patel catheter in place. Draining without issue. Skin as documented. Discussed plan of care. Vital signs stable at this time.
[2024-01-07] MEDS: LOPRESSOR PO (19:46)
[2024-01-07 19:52] LABS: Hematocrit 26.3 % (37.0-47.0); Hemoglobin 8.7 g/dL (12.0-16.0); Mean Corp Hgb Conc. 33.1 g/dL (33.0-37.0); Mean Corpuscular Volume 93.6 fL (81.0-99.0); Mean Platelet Volume 11.3 fL (7.4-10.4); Platelet Count 36 10^3/uL (130-400); Red Blood Cell Count 2.81 10^6/uL (4.20-5.40); Red Cell Dist. Width 24.7 % (11.5-14.5)
[2024-01-07 20:01] LABS: Potassium 4.6 mmol/L (3.5-5.1)
[2024-01-07] MEDS: LANTUS 0.12 UNITS SC (21:53)
[2024-01-07 22:01] LABS: Glucose - Point of Care 109 mg/dl (70-99)
[2024-01-08] VITALS (28 sets, daily range): BP systolic 106–131; BP diastolic 64–101; PULSE 97–109; O2SAT 92–94; BMI 26.1
[2024-01-08] MEDS: SOLU-CORTEF 100 MG IV (01:34)
[2024-01-08] MEDS: ROXICODONE 5 MG PO ×2 (03:31→18:43)
[2024-01-08 03:38] LABS: Hematocrit 26.4 % (37.0-47.0); Hemoglobin 8.6 g/dL (12.0-16.0); Mean Corp Hgb Conc. 32.6 g/dL (33.0-37.0); Mean Corpuscular Hgb 30.7 pg (27.0-31.0); Mean Corpuscular Volume 94.3 fL (81.0-99.0); Mean Platelet Volume 10.3 fL (7.4-10.4); Platelet Count 34 10^3/uL (130-400); Red Cell Dist. Width 24.8 % (11.5-14.5); White Blood Cell Count 6.4 10^3/uL (4.8-10.8)
[2024-01-08 03:49] LABS: ALT (SGPT) 25 U/L (0-35); AST (SGOT) 16 U/L (14-36); Albumin 3.3 g/dl (3.5-5.0); Alkaline Phosphatase 128 U/L (38-126); Blood Urea Nitrogen 28 mg/dl (7-17); Calcium 9.6 mg/dl (8.4-10.2); Carbon Dioxide 33 mmol/L (22-30); Chloride 104 mmol/L (98-107); Direct Bilirubin 0.2 mg/dl (0.0-0.4); Estimated Creatinine Clearance 43 ml/min; Glucose 90 mg/dl (70-99); Magnesium 1.9 mg/dl (1.6-2.3); Potassium 4.4 mmol/L (3.5-5.1); Sodium 142 mmol/L (135-145); Total Bilirubin 1.1 mg/dl (0.2-1.3); Total Protein 5.1 g/dl (6.3-8.2); eGFR > 60.00
--- NOTE | 2024-01-08 08:00 | PTCARENOTE ---
Received pt sleeping.Awakens to voice.Pt is oriented x 3.Denies pain. +3/5 LOZA.SR noted.Right mid line intact.POX 97% on RA.Decreased breath sounds throughout.Appetite poor.Refusing breakfast at this time.No BM.Savage draining yellow urine.Skin
integrity as documented.Plan of care discussed.
[2024-01-08] MEDS: REVATIO 20 MG PO ×3 (09:14→21:44)
[2024-01-08] MEDS: LOPRESSOR 12.5 MG PO ×2 (09:14→21:44)
[2024-01-08] MEDS: ProAmatine PO ×3 (09:15→18:20)
[2024-01-08] MEDS: SANTYL OINTMENT 1 APPLIC TOPICAL (09:15)
[2024-01-08] MEDS: PROTONIX IV 40 MG IV (09:20)
[2024-01-08] MEDS: DELTASONE 50 MG PO (09:20)
[2024-01-08] MEDS: NSS (PRESERVATIVE FREE) 10 ML IV (09:20)
[2024-01-08] MEDS: NOVOLOG FLEXPEN-MODERATE RESISTANCE SC ×2 (09:24→14:14)
[2024-01-08 09:35] LABS: Glucose - Point of Care 98 mg/dl (70-99)
[2024-01-08] MEDS: SOLU-CORTEF IV (09:57)
--- NOTE | 2024-01-08 12:16 | PTCARENOTE ---
Pt assessed.No change in assessment noted.[employer] breakfast late.Pt assisted oob to chair with OT/PT.
--- NOTE | 2024-01-08 13:19 | W.PN.HOSP.TC ---
Addendum entered and electronically signed by Tim Pickett MD 01/08/24 16:09:
seen and examined by me independently in collaboration with the medical equipment sales [employer].
Lab data and imaging data reviewed.
Addendum as below :
Patient feels improved. Sitting the chair comfortable.
Blood pressure has been stable. Afebrile.
Denies any abdominal pain or flank pain. Urinating without dysuria.Not bacteremic. Continue with Abx per ID.
No overt or active GI bleed. HH and Plt stable . GI planning on supportive tx for now.
Would need BMBX as OP for eval of thrombocytopenia.
okay for transfer to telemetry.
Original Note:
Today's Communication/Plan
-
* Continue ceftriaxone.
* IV hydration.
* PO pantoprazole.
* Trend CBC and electrolytes.
* Switch to home steroid dosing.
* Transfuse as needed.
* Advance diet as tolerated.
* Transfer to tele.
Assessment / Plan
Assessment / Plan
Assessment
Meka Nash, age 73, was brought to the hospital from [facility] on 01-04-24 with progressive fatigue, reduced oral intake and altered mental status. In the emergency, she was found to have a hemoglobin of 5.8, lactic acid of 7.4, potassium of
6.2, platelet count of 51 and UA suspicious for infection. She had hypotensive unresponsive to fluids, and required pressors. She received 2 units of pRBC and was started on norepinephrine. Admitted to the ICU with hemorrhagic vs. septic shock, vs.
mixed.
Impression and plan
Hemorrhagic shock secondary to acute painless gastrointestinal bleed
Acute blood loss on chronic anemia
Acute on chronic thrombocytopenia
- Heme+ stools this admission, and prior history of angioectasia.
- Status-post 3 units of pRBC and 3 units of platelets as of now.
- Follow CBC.
- Transfuse for hemoglobin <7 and platelet <10.
- Transition IV to PO pantoprazole.
- Gastroenterology following.
Septic shock secondary to acute complicated urinary tract infection
Possibly related to indwelling Savage
- Possibly in addition to hemorrhagic shock.
- CT AP suspicious for ascending UTI on admission.
- Afebrile so far; vitals improving.
- Urine and blood cultures no growth.
- Off pressors now.
- Maintain Savage.
- Continue ceftriaxone through 01-11-24.
- Infectious disease following.
Metabolic acidosis secondary to above
- Now resolved.
- IV hydration.
Dyskalemia
- Hyperkalemia on presentation treated with insulin, calcium gluconate, D50 and sodium bicarbonate.
- Hypokalemia after admission with repletion; replete to keep potassium >4.
- Follow BMP.
Acute kidney injury
- Resolving.
- IV hydration.
- Follow BMP.
Hyperbilirubinemia
- Unlikely transfusion-related.
- Trend bilirubin.
Chronic urinary retention
Chronic indwelling Savage catheter
- Savage status since February 2023.
- Last changed in the emergency on 01-04-24.
Infrarenal IVC filter thrombosis
History of bilateral pulmonary embolism
- Not on anticoagulation; will need anticoagulation after platelet count has been optimized.
- Filter placed around 2009.
- Was not removed when patient was lost to follow-up, according to daughter.
- No indication for interventions, per vascular surgery.
Chronic bicytopenia
- New-onset worsening anemia and thrombocytopenia.
- Baseline hemoglobin around 8.
- Followed at [facility]; on-going discussions about a potential bone marrow biopsy outpatient.
Scleroderma/SLE
- Transition stress dose steroids to home dosing.
Chronic heart failure with preserved ejection fraction
Valvular heart disease
Pulmonary hypertension
- Not in acute flare.
- Hold diuretics.
Essential hypertension
- Hold metoprolol.
Gastroesophageal reflux disease
Hiatal hernia
- Continue pantoprazole.
Chronic constipation
- Dulcolax and polyethylene glycol as needed.
Sacral wound, stage III
Decubitus heel wound, stage I
- Sacral wound possibly related to fecal incontinence and/or pressure.
- Wound care following.
Thromboprophylaxis
- Sequential compression devices.
Code status
- Full.
Anticipated Discharge: 24 - 48 hours
Subjective/Interval History
-
Date of Service: January 08, 2024
Stable overnight. No new complaints.
Objective Data
-
Labs:
Laboratory Results
01/08/24
03:18
WBC 6.4
Hgb 8.6 L
Hct 26.4 L
Plt Count 34 L
Sodium 142
Potassium 4.4
Chloride 104
Carbon Dioxide 33 H
BUN 28 H
Creatinine 1.0
Glucose 90
Calcium 9.6
Total Bilirubin 1.1
AST 16
ALT 25
Alkaline Phosphatase 128 H
Vital Signs:
Vital Signs
Temp Pulse Resp BP Pulse Ox
97.7 F 100 14 129/91 98
01/08/24 11:00 01/08/24 09:14 01/08/24 06:00 01/08/24 09:15 01/08/24 06:00
I&O
01/07/24 01/08/24 01/09/24
06:59 06:59 06:59
Intake Total 4035.2 / 4039.0 937.6 / 937.6
Output Total 2390 / 2390 685 / 685
Balance 1645.2 / 1649.0 252.6 / 252.6
Review of Systems
-
History Source: Patient
Constitutional: Reports Fatigue (improved)
EENT: Reports No Symptoms Reported
Respiratory: Reports No Symptoms
Cardiac: Reports No Symptoms
Abdomen/GI: Reports No Symptoms
Breast: Reports No Symptoms
Genitourinary: Reports No Symptoms
Musculoskeletal: Reports No Symptoms
Skin: Reports No Symptoms
Neuro: Reports No Symptoms
Endocrine: Reports No Symptoms
Hematologic / Lymphatic: Reports No Symptoms
Allergy / Immunology: Reports No Symptoms
Physical Exam
-
General: No Apparent Distress and Comfortable
HEENT: Normocephalic, Atraumatic, Moist Mucous Membranes, Anicteric and No Ptosis
Respiratory: Clear to Auscultation and Non Labored Respirations
Cardiac: Regular Rhythm and S1/S2
GI: Soft, Nontender and Nondistended
Genito-urinary: No Costovertebral Tender
Musculoskeletal: No Clubbing, No Cyanosis, Edema, Right Lower Extrem (1+) and Edema, Left Lower Extrem (1+)
Skin: Warm, Dry and IV Access / Catheter Site
Neuro: Awake, Alert, Oriented and No Motor Deficits
Hematologic / Lymphatic: No Lymphadenopathy
Psych: Calm and Intact Judgement/Insight
--- NOTE | 2024-01-08 14:12 | W.PN.GI.CBS2 ---
Today's Communication / Plan
-
GI signing off. Please call with questions
Assessment / Plan
-
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
LA grade D esophagitis (08/23/2023), large hiatal hernia, congested duodenal mucosa, single spot duodenum (unlikely angioectasia) treated with APC, anemia, thrombocytopenia, and osteoarthritis with recent admission. In November she presented with
weakness, fatigue, and hypotension in setting of pulm HTN and acute CHF. She was also noted with hypoxemia, hyponatremia , elevated troponin and seen by GI and heme for anemia and heme + stool. Per heme anemia likely multi factorial with
multiple illnesses, B12 deficiency, crest with GI bleeding, prior noted grade D esophagitis and prior noted AVM and to consider eventual bone marrow biopsy. She was seen by GI without overt bleeding and recommended OP follow up for colonoscopy.
She now presents with concern for seizure with decreased appetite for 4 days. On admission she is noted with hypotension requiring pressors, tachycardia, with no report of bleeding prior to admission and dark maroon heme + stool but also
reported as dark brown when temp taken rectally per staff and them melena on 01/05 after drop in BUN but also drop in platelets. She was also noted with leukocytosis, elevated lactate and hyperkalemia then hypokalmemia, ALTA, hyponatremia after
admission. . She is also noted with hbg 5.8 with BUN of 99 and elevated creat with prior 8.7 on 12/05 with platelets 51,000. She initially had decreased mentation but improvement with fluid resuscitation in ER.
01/03 CTA
1. No CTA evidence for acute active gastrointestinal hemorrhage.
2. Severe diverticulosis in the sigmoid colon.
3. Severe chronic bilateral renal disease.
4. Small amount of air in the right intrarenal collecting system and right renal pelvis (either secondary to emphysematous pyelitis or recent instrumentation). Mild debris in the distended right renal pelvis. Moderate distention of the right renal
pelvis and right upper pole intrarenal calyces. Mild urothelial thickening and mild distention of the right ureter suggesting ascending urinary tract infection.
5. Savage catheter in moderate air in the urinary bladder.
6. Infrarenal IVC filter containing thrombus.
7. Moderate to severe pancreatic parenchymal atrophy.
8. Large hiatal hernia.
9. Mild cardiomegaly.
10. Severe discogenic degenerative disease and facet joint arthrosis in the lower lumbar spine.
11. Bilateral total hip arthroplasties in place.
-hypotension with need for pressors on admission
-concern for sepsis with fever, leukocytosis, elevated lactate- trending down
-hyperkalemia then hypokalemia
-acute on chronic anemia with melena after admission
-CTA suggestive of possible UTI
-possible thrombus IVC filter
-?seizure prior to admission
-chronic thrombocytopenia of unclear etiology - heme following
-recent decreased appetite
- hx grade D esophagitis and large HH
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
-HFrEF with recent admission
other med problems:
-GERD
-CKD
-minimal change disease
-severe pulm HTN
-scleroderma/lupus
-crest syndrome
-CHF
-hyperlipidemia
-DVT/PE with filter
-B12 deficiency
-hx GERD
-hypoalbuminemia
01/06/24
etiology of hypotension and tachycardia related to underlying sepsis vs GI bleeding as now passing black stools in setting of severe thrombocytopenia overnight
GI bleed -- upper source AVM/hx esophagitis large HH as recently noted on EGD in August
noted bleeding with melena this am can consider EGD if persistent symptoms but will need improved platelet count and optimized unless she becomes hemodynamically unstable , consider eventual OP colonoscopy but appear more upper GI source with
marked BUN elevation
hbg 5.8 then up to 10.3 with transfusion then back down to 8
BUN with slow improvement 99-75--72--59--50
cont work up per hospitalist team to rule out concurrent infectious process
cont clear diet
sent message to review with hematology for platelet transfusion as 23,000 this am
cont PPI IV BID
CTA as noted neg for bleeding source
correct K per medical team initially high no low
monitor for recurrent seizure
s/p vascular eval with concern for thrombus in filter
01/07/24 -etiology of her bleeding is likely her suspected/continued esophagitis from her large hiatal hernia. She has been on Nexium 20 mg at home. She denies any upper GI symptoms like reflux, regurgitation, esophageal burning. No dysphagia.
-- Follow with CREST syndrome most patients will have angioectasias which can bleed especially when she has significant thrombocytopenia
-- So overall bleeding is likely secondary to her grade D esophagitis (found in August with Dr. Saxena) + angioectasias in the setting of thrombocytopenia
-- Now that her infection is likely being treated her platelet counts are improving and hopefully this is stopping her bleeding
-- She is on twice daily PPI and when she goes home she should be on 40 mg twice daily for at least a month then 40 mg indefinitely in the setting of a large hiatal hernia with prior grade D esophagitis
-- Pending her health at some point she should get a repeat endoscopy to ensure the esophagitis has improved and that there is no malignancy underneath it
-- Her repeat hemoglobin this afternoon has also been stable. Her platelet counts continue to improve. Will monitor
-- Advance diet
01/08/2024 no overt bleeding, continue twice daily PPI while here and for 30 days then 40 mg indefinitely in the setting of her large hiatal hernia
-- GI will sign off. Please call us back with any concerns for overt bleeding
Subjective
Subjective
Date of Service: January 08, 2024
Patient denies any overt bleeding. No issues with dysphagia nausea vomiting abdominal pain
Objective
Data Reviewed
Laboratory Data:
Laboratory Results
01/08/24 03:18
01/08/24 03:18
Laboratory Results
PT 14.5 Sec (11.4-14.6) 01/07/24 05:02
INR 1.07 01/07/24 05:02
APTT 24.4 Sec (23.4-35.0) 01/07/24 05:02
Phosphorus 3.0 mg/dl (2.5-4.5) 01/08/24 03:18
Magnesium 1.9 mg/dl (1.6-2.3) 01/08/24 03:18
Total Bilirubin 1.1 mg/dl (0.2-1.3) 01/08/24 03:18
AST 16 U/L (14-36) 01/08/24 03:18
ALT 25 U/L (0-35) 01/08/24 03:18
Alkaline Phosphatase 128 U/L (38-126) H 01/08/24 03:18
Vital Signs and I&O:
Vital Signs
Temp Pulse Resp BP Pulse Ox
97.7 F 100 14 129/91 98
01/08/24 11:00 01/08/24 09:14 01/08/24 06:00 01/08/24 09:15 01/08/24 06:00
I&O
01/07/24 01/08/24 01/09/24
06:59 06:59 06:59
Intake Total 4035.2 / 4039.0 937.6 / 937.6
Output Total 2390 / 2390 685 / 685
Balance 1645.2 / 1649.0 252.6 / 252.6
Physical Exam
Physical Exam
HEENT: Anicteric
GI: Soft, Non Distended and Non Tender
Neuro: Non Focal
[2024-01-08 14:22] LABS: Glucose - Point of Care 137 mg/dl (70-99)
[2024-01-08] MEDS: STERILE WATER FOR INJECTION 10 ML IV (14:32)
[2024-01-08] MEDS: ROCEPHIN 1000 MG IV (14:32)
--- NOTE | 2024-01-08 16:30 | PTCARENOTE ---
Pt assessed.No change in assessment noted.Pt assisted back to bed with 2 person max assist.
[2024-01-08] MEDS: LIPITOR 10 MG PO (16:46)
[2024-01-08 17:56] LABS: Glucose - Point of Care 170 mg/dl (70-99)
[2024-01-08] MEDS: NOVOLOG FLEXPEN-MODERATE RESISTANCE 1 UNITS SC (18:20)
--- NOTE | 2024-01-08 20:00 | PTCARENOTE ---
On assessment pt AAOx3, denies pain at this time, repositioned q2h, SR on the monitor, +pulses, 95% RA, shallow breathing, chronic patel, sacral wound dressing C/D/I, RUE midline, call almaraz in reach.
[2024-01-08] MEDS: PROTONIX 40 MG PO (21:45)
[2024-01-08] MEDS: LANTUS 0.12 UNITS SC (21:47)
[2024-01-08 21:53] LABS: Glucose - Point of Care 99 mg/dl (70-99)
[2024-01-09] VITALS (15 sets, daily range): BP systolic 97–141; BP diastolic 69–90; BMI 28.1
[2024-01-09 05:17] LABS: Hematocrit 17.6 % (37.0-47.0); Hemoglobin 5.8 g/dL (12.0-16.0); Mean Corpuscular Hgb 31.9 pg (27.0-31.0); Mean Corpuscular Volume 96.7 fL (81.0-99.0); Mean Platelet Volume 11.7 fL (7.4-10.4); Platelet Count 25 10^3/uL (130-400); Red Blood Cell Count 1.82 10^6/uL (4.20-5.40); Red Cell Dist. Width 23.9 % (11.5-14.5); White Blood Cell Count 3.3 10^3/uL (4.8-10.8)
[2024-01-09 05:54] LABS: Hematocrit 28.7 % (37.0-47.0); Hemoglobin 9.3 g/dL (12.0-16.0); Mean Corp Hgb Conc. 32.4 g/dL (33.0-37.0); Mean Corpuscular Hgb 31.1 pg (27.0-31.0); Mean Platelet Volume 11.5 fL (7.4-10.4); Platelet Count 42 10^3/uL (130-400); Red Blood Cell Count 2.99 10^6/uL (4.20-5.40); Red Cell Dist. Width 24.3 % (11.5-14.5); White Blood Cell Count 5.2 10^3/uL (4.8-10.8)
[2024-01-09 06:05] LABS: Glucose - Point of Care 67 mg/dl (70-99)
[2024-01-09 06:30] LABS: Blood Urea Nitrogen 23 mg/dl (7-17); Calcium 9.4 mg/dl (8.4-10.2); Carbon Dioxide 29 mmol/L (22-30); Chloride 105 mmol/L (98-107); Estimated Creatinine Clearance 70 ml/min; Glucose 75 mg/dl (70-99); Sodium 143 mmol/L (135-145); eGFR > 60.00
[2024-01-09 06:36] LABS: Glucose - Point of Care 74 mg/dl (70-99)
[2024-01-09] MEDS: NOVOLOG FLEXPEN-MODERATE RESISTANCE SC ×3 (06:56→17:33)
[2024-01-09] MEDS: PROTONIX 40 MG PO ×2 (07:00→21:13)
[2024-01-09] MEDS: SANTYL OINTMENT 1 APPLIC TOPICAL (07:00)
[2024-01-09] MEDS: REVATIO 20 MG PO ×3 (07:01→22:39)
[2024-01-09] MEDS: ProAmatine PO ×2 (07:01→17:40)
[2024-01-09] MEDS: DELTASONE 50 MG PO (07:01)
[2024-01-09] MEDS: LOPRESSOR 12.5 MG PO ×2 (07:01→21:18)
[2024-01-09 07:07] LABS: Glucose - Point of Care 73 mg/dl (70-99)
[2024-01-09 07:56] LABS: Glucose - Point of Care 56 mg/dl (70-99)
--- NOTE | 2024-01-09 08:12 | PTCARENOTE ---
Addendum entered by Desirae Harvey RN 01/09/24 09:09:
0825 fingerstick reading 56. S/p juice and peanut butter crackers. Rechecked using ear lobe. Fingerstick 132.
Original Note:
Patient's fingerstick resulted at 56. [place]clain juice provided. Breakfast ordered. Repeat check 15 minutes post juice - 52. Hypoglycemia kit obtained. Patient eating peanut butter crackers. Next check due at 0825.
[2024-01-09 08:16] LABS: Glucose - Point of Care 52 mg/dl (70-99)
[2024-01-09 08:38] LABS: Glucose - Point of Care 56 mg/dl (70-99)
--- NOTE | 2024-01-09 08:55 | W.PN.ID1 ---
Date of Service
Date of Service: January 09, 2024
Today's Communication
Continue empiric ceftriaxone through 01/11/24.
Assessment / Plan
# GIB, blood loss anemia
# SIRS/shock, weaned off pressors
# Acute on chronic thrombocytopenia- improving
# Chronic patel, exchanged 01/04
- Of note,pt with h/o chronic hypotension (SPB 80's-90's)
- Admission HgB 5.8. -> per GI, slow bleed from AVM, and therefore not source of shock.
- Admission CXR neg acute change
- Blood cx's neg to date.
- CT scan suggestive of right complicated UTI. Interestingly, admission UA nonsignificant wbc of only 3-5. Ucx >100K mixed mark, contaminant.
- repeat Ucx after patel changed -> only 30K mixed mark (pt on Zosyn at the time)
- Continue empiric ceftriaxone through 01/11/24.
# IVC filter with thrombus
# hx of PE
# Conditions [employer]
CREST syndrome with Lupus/scleroderma overlap
Chronic hypotension on midodrine
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
CKD3
Urinary retention with chronic patel
HFpEF
HTN
Chronic thrombocytopenia
Pulmonary hypertension
PE 2006
IVC filter placement 2007
Bilateral total hip arthroplasty
Hysterectomy
Perineoplasty
Chief Complaint
-: Other (Hypotension)
Subjective / Review of Systems
Appetite not so well
Vital Signs / Physical Exam
Vital Signs
Vital Signs
Temp Pulse Resp BP Pulse Ox
97.5 F 91 20 106/81 95
01/09/24 07:35 01/09/24 08:30 01/09/24 08:30 01/09/24 08:00 01/09/24 08:30
Physical Exam
Constitutional: Comfortable
Head: Other ([place])
Cardiovascular: Regular Rate and S1/S2
Pulmonary: Clear (anteriorly)
Gastrointestinal: Soft, Non Tender and Non Distended
Genito-Urinary: Patel and Clear Urine; Negative CVA Tenderness
Neurological: AO x 3
Objective Data
Lab Data
Lab Results
01/09/24 05:36
01/09/24 05:49
PT 14.5 Sec (11.4-14.6) 01/07/24 05:02
INR 1.07 01/07/24 05:02
APTT 24.4 Sec (23.4-35.0) 01/07/24 05:02
Estimated Creat Clear 70 ml/min 01/09/24 05:49
Lactic Acid 1.8 mmol/L (0.7-2.0) 01/07/24 05:02
Total Bilirubin 1.1 mg/dl (0.2-1.3) 01/08/24 03:18
AST 16 U/L (14-36) 01/08/24 03:18
ALT 25 U/L (0-35) 01/08/24 03:18
Alkaline Phosphatase 128 U/L (38-126) H 01/08/24 03:18
Most recent labs reviewed.
Micro Results:
01/04/24 14:58 Blood Culture - Preliminary
Blood/Venous No Growth in 4 days- Final report to follow
01/04/24 14:58 Blood Culture - Preliminary
Blood/Venous No Growth in 4 days- Final report to follow
01/05/24 13:14 Urine Culture - Final
Urine
01/04/24 22:11 MRSA Screen - Final
Nose No Methicillin Resistant Staphylococcus aureus isolated.
01/04/24 13:37 Urine Culture - Final
Urine
01/04/24 CT a/p: No CTA evidence for acute active gastrointestinal hemorrhage. Small amount of air in the right intrarenal collecting system and right renal pelvis (either secondary to emphysematous pyelitis or recent instrumentation). Mild debris
in the distended right renal pelvis. Moderate distention of the right renal pelvis and right upper pole intrarenal calyces. Mild urothelial thickening and mild distention of the right ureter suggesting ascending urinary tract infection. Patel
catheter in moderate air in the urinary bladder. Infrarenal IVC filter containing thrombus.
01/04/24 CXR: No acute pulmonary process identified.
[2024-01-09 10:40] LABS: Glucose - Point of Care 115 mg/dl (70-99)
--- NOTE | 2024-01-09 10:47 | PTCARENOTE ---
Patient transported with belongings to [facility]. Repeat fingerstick completed prior to transport; 115. Vitals stable.
[2024-01-09 11:33] LABS: Glucose - Point of Care 119 mg/dl (70-99)
[2024-01-09] MEDS: DESITIN MAXIMUM STRENGTH PASTE 1 APPLIC TOPICAL ×2 (11:46→11:51)
[2024-01-09] MEDS: ROXICODONE 5 MG PO (11:46)
--- NOTE | 2024-01-09 13:28 | W.PN.HOSP.TC ---
Addendum entered and electronically signed by Tim Pickett MD 01/09/24 14:16:
Seen and examined by me independently in collaboration with the forensic medical examiner Reji.
Lab data and imaging data reviewed.
Addendum as below :
Feels better in general.
No fevers. Blood pressure has been stable off of pressors. Oxygenating well on room air.
Denies any nausea vomiting or flank pain. Denies any dysuria.
Continue with antibiotics till for coverage. ID input appreciated.
Patient was supported with PRBC and platelets were GI bleed in setting thrombocytopenia. GI recommends conservative and supportive treatments with transfusion as needed and optimize platelets. They have signed off.
Hematology planning on bone marrow biopsy as outpatient.
She is back on her steroids for minimal-change disease/crest syndrome.
PT OT eval and discharge planning.
Original Note:
Today's Communication/Plan
-
* Continue ceftriaxone.
* Trend CBC and electrolytes.
* Transfuse as needed.
* Advance diet as tolerated.
* Resume furosemide.
* PT-OT; anticipated discharge tomorrow or the day after.
Assessment / Plan
Assessment / Plan
Assessment
Meka Nash, age 73, was brought to the hospital from [facility] on 01-04-24 with progressive fatigue, reduced oral intake and altered mental status. In the emergency, she was found to have a hemoglobin of 5.8, lactic acid of 7.4, potassium of
6.2, platelet count of 51 and UA suspicious for infection. She had hypotensive unresponsive to fluids, and required pressors. She received 2 units of pRBC and was started on norepinephrine. Admitted to the ICU with hemorrhagic vs. septic shock, vs.
mixed.
Impression and plan
Hemorrhagic shock secondary to acute painless gastrointestinal bleed
Acute blood loss on chronic anemia
Acute on chronic thrombocytopenia
- Heme+ stools this admission, and prior history of angioectasia.
- Status-post 3 units of pRBC and 3 units of platelets as of now.
- Follow CBC.
- Transfuse for hemoglobin <7 and platelet <10.
- PO pantoprazole; will likely need long-term.
- Gastroenterology following.
Septic shock secondary to acute complicated urinary tract infection
Possibly related to indwelling Savage
- Possibly in addition to hemorrhagic shock.
- CT AP suspicious for ascending UTI on admission.
- Afebrile so far; vitals improving.
- Urine and blood cultures no growth.
- Off pressors now.
- Maintain Savage.
- Continue ceftriaxone through 01-11-24.
- Infectious disease following.
Metabolic acidosis secondary to above
- Now resolved.
- IV hydration.
Dyskalemia
- Hyperkalemia on presentation treated with insulin, calcium gluconate, D50 and sodium bicarbonate.
- Hypokalemia after admission with repletion; replete to keep potassium >4.
- Follow BMP.
Acute kidney injury
- Resolving.
- IV hydration.
- Follow BMP.
Hyperbilirubinemia
- Unlikely transfusion-related.
- Trend bilirubin.
Chronic urinary retention
Chronic indwelling Savage catheter
- Savage status since February 2023.
- Last changed in the emergency on 01-04-24.
Infrarenal IVC filter thrombosis
History of bilateral pulmonary embolism
- Not on anticoagulation; will need anticoagulation after platelet count has been optimized.
- Filter placed around 2009.
- Was not removed when patient was lost to follow-up, according to daughter.
- No indication for interventions, per vascular surgery.
Chronic bicytopenia
- New-onset worsening anemia and thrombocytopenia.
- Baseline hemoglobin around 8.
- Followed at [place]; on-going discussions about a potential bone marrow biopsy outpatient.
Scleroderma/SLE
- Transition stress dose steroids to home dosing.
Chronic heart failure with preserved ejection fraction
Valvular heart disease
Pulmonary hypertension
- Not in acute flare.
- Resume furosemide today; can resume metolazone tomorrow if stable.
Essential hypertension
- Hold metoprolol.
Gastroesophageal reflux disease
Hiatal hernia
- Continue pantoprazole.
Chronic constipation
- Dulcolax and polyethylene glycol as needed.
Sacral wound, stage III
Decubitus heel wound, stage I
- Sacral wound possibly related to fecal incontinence and/or pressure.
- Wound care following.
Thromboprophylaxis
- Sequential compression devices.
Code status
- Full.
Anticipated Discharge: Within 24 hours
Subjective/Interval History
-
Date of Service: January 09, 2024
Stable overnight. Blood work stable on re-check.
Objective Data
-
Labs:
Laboratory Results
01/09/24 01/09/24 01/09/24
04:41 05:36 05:49
WBC 3.3 L 5.2
Hgb 5.8 L* D 9.3 L D
Hct 17.6 L* 28.7 L
Plt Count 25 L* D 42 L D
Sodium Cancelled 143
Potassium Cancelled 4.0
Chloride Cancelled 105
Carbon Dioxide Cancelled 29
BUN Cancelled 23 H
Creatinine Cancelled 0.7
Glucose Cancelled 75
Calcium Cancelled 9.4
Vital Signs:
Vital Signs
Temp Pulse Resp BP Pulse Ox
97.9 F 89 17 127/86 99
01/09/24 10:46 01/09/24 10:46 01/09/24 10:46 01/09/24 10:46 01/09/24 10:46
I&O
01/08/24 01/09/24 01/10/24
06:59 06:59 06:59
Intake Total 937.6 / 937.6 510 / 510 120 / 120
Output Total 685 / 685 650 / 650 70 / 70
Balance 252.6 / 252.6 -140 / -140 50 / 50
Review of Systems
-
History Source: Patient
Constitutional: Reports Fatigue (improved)
EENT: Reports No Symptoms Reported
Respiratory: Reports No Symptoms
Cardiac: Reports No Symptoms
Abdomen/GI: Reports No Symptoms
Breast: Reports No Symptoms
Genitourinary: Reports No Symptoms
Musculoskeletal: Reports No Symptoms
Skin: Reports No Symptoms
Neuro: Reports No Symptoms
Endocrine: Reports No Symptoms
Hematologic / Lymphatic: Reports No Symptoms
Allergy / Immunology: Reports No Symptoms
Physical Exam
-
General: No Apparent Distress and Comfortable
HEENT: Normocephalic, Atraumatic, Moist Mucous Membranes, Anicteric and No Ptosis
Respiratory: Crackles (bilaterally, mild) and Non Labored Respirations
Cardiac: Regular Rhythm and S1/S2
GI: Soft, Nontender and Nondistended
Genito-urinary: No Costovertebral Tender
Musculoskeletal: No Clubbing, No Cyanosis, Edema, Right Lower Extrem (1+) and Edema, Left Lower Extrem (1+)
Skin: Warm, Dry and IV Access / Catheter Site
Neuro: Awake, Alert, Oriented and No Motor Deficits
Hematologic / Lymphatic: No Lymphadenopathy
Psych: Calm and Intact Judgement/Insight
[2024-01-09] MEDS: ROCEPHIN 1000 MG IV (14:21)
[2024-01-09] MEDS: ProAmatine 10 MG PO (14:22)
[2024-01-09] MEDS: STERILE WATER FOR INJECTION 10 ML IV (14:22)
[2024-01-09 14:32] LABS: Glucose - Point of Care 126 mg/dl (70-99)
[2024-01-09] MEDS: LASIX 80 MG PO (16:11)
[2024-01-09 16:25] LABS: Glucose - Point of Care 126 mg/dl (70-99)
[2024-01-09] MEDS: LIPITOR 10 MG PO (17:37)
[2024-01-09 22:49] LABS: Glucose - Point of Care 113 mg/dl (70-99)
[2024-01-10] VITALS (8 sets, daily range): BP systolic 104–152; BP diastolic 63–105; PULSE 97–98; O2SAT 94; BMI 26.0
[2024-01-10 06:18] LABS: Glucose - Point of Care 84 mg/dl (70-99)
[2024-01-10 08:22] LABS: Hemoglobin 10.1 g/dL (12.0-16.0); Mean Corp Hgb Conc. 31.6 g/dL (33.0-37.0); Mean Corpuscular Hgb 31.2 pg (27.0-31.0); Mean Corpuscular Volume 98.8 fL (81.0-99.0); Mean Platelet Volume 11.3 fL (7.4-10.4); Platelet Count 51 10^3/uL (130-400); Red Blood Cell Count 3.24 10^6/uL (4.20-5.40); Red Cell Dist. Width 24.4 % (11.5-14.5)
[2024-01-10] MEDS: LOPRESSOR 12.5 MG PO ×2 (08:42→20:26)
[2024-01-10] MEDS: PROTONIX 40 MG PO ×2 (08:42→20:26)
[2024-01-10] MEDS: REVATIO 20 MG PO ×3 (08:43→21:51)
[2024-01-10] MEDS: LASIX 80 MG PO ×2 (08:43→16:12)
[2024-01-10] MEDS: DELTASONE 50 MG PO (08:43)
[2024-01-10] MEDS: SANTYL OINTMENT 1 APPLIC TOPICAL (08:43)
[2024-01-10] MEDS: DESITIN MAXIMUM STRENGTH PASTE 1 APPLIC TOPICAL (08:44)
[2024-01-10] MEDS: ProAmatine PO ×2 (08:44→12:38)
[2024-01-10] MEDS: NOVOLOG FLEXPEN-MODERATE RESISTANCE SC (08:45)
[2024-01-10 09:06] LABS: ALT (SGPT) 25 U/L (0-35); AST (SGOT) 17 U/L (14-36); Albumin 3.4 g/dl (3.5-5.0); Alkaline Phosphatase 155 U/L (38-126); Blood Urea Nitrogen 20 mg/dl (7-17); Calcium 8.8 mg/dl (8.4-10.2); Carbon Dioxide 35 mmol/L (22-30); Chloride 98 mmol/L (98-107); Estimated Creatinine Clearance 61 ml/min; Glucose 76 mg/dl (70-99); Sodium 141 mmol/L (135-145); Total Bilirubin 1.8 mg/dl (0.2-1.3); Total Protein 5.3 g/dl (6.3-8.2); eGFR > 60.00
--- NOTE | 2024-01-10 10:11 | W.PN.ID1 ---
Date of Service
Date of Service: January 10, 2024
Today's Communication
- transition empiric ceftriaxone to cipro 500mg po bid (4 doses) through 01/11/24.
- ID will sign off.
Assessment / Plan
# s/p GIB, blood loss anemia
# s/p SIRS/shock ->per GI, slow bleed from AVM, and therefore not source of shock.
# Acute on chronic thrombocytopenia- improving
# Chronic patel, exchanged 01/04
- Admission CXR neg acute change
- Blood cx's neg to date.
- CT scan suggestive of right complicated UTI. Interestingly, admission UA nonsignificant wbc of only 3-5. Ucx >100K mixed mark, contaminant.
- repeat Ucx after patel changed -> only 30K mixed mark (pt on Zosyn at the time)
- transition empiric ceftriaxone to cipro 500mg po bid (4 doses) through 01/11/24.
- ID will sign off.
# IVC filter with thrombus
# hx of PE
# Conditions [employer]
CREST syndrome with Lupus/scleroderma overlap
Chronic hypotension on midodrine
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
CKD3
Urinary retention with chronic patel
HFpEF
HTN
Chronic thrombocytopenia
Pulmonary hypertension
PE 2006
IVC filter placement 2007
Bilateral total hip arthroplasty
Hysterectomy
Perineoplasty
Chief Complaint
-: Other (Hypotension)
Subjective / Review of Systems
c/o sacral wound discomfort
Vital Signs / Physical Exam
Vital Signs
Vital Signs
Temp Pulse Resp BP Pulse Ox
97.7 F 95 16 119/67 95
01/10/24 07:13 01/10/24 07:13 01/10/24 07:13 01/10/24 07:13 01/10/24 03:42
Physical Exam
Constitutional: No Acute Distress
Eyes: No Conjunctival Hemorrhage and Sclera Anicteric
Pulmonary: Other (Decreased BS at bases)
Gastrointestinal: Soft, Non Tender, Non Distended and Normal Bowel Sounds
Genito-Urinary: Negative CVA Tenderness
Extremities: Negative Edema
Neurological: AO x 3
Objective Data
Lab Data
Lab Results
01/10/24 07:31
01/10/24 07:31
PT 14.5 Sec (11.4-14.6) 01/07/24 05:02
INR 1.07 01/07/24 05:02
APTT 24.4 Sec (23.4-35.0) 01/07/24 05:02
Estimated Creat Clear 61 ml/min 01/10/24 07:31
Lactic Acid 1.8 mmol/L (0.7-2.0) 01/07/24 05:02
Total Bilirubin 1.8 mg/dl (0.2-1.3) H 01/10/24 07:31
AST 17 U/L (14-36) 01/10/24 07:31
ALT 25 U/L (0-35) 01/10/24 07:31
Alkaline Phosphatase 155 U/L (38-126) H 01/10/24 07:31
Most recent labs reviewed.
Micro Results:
01/04/24 14:58 Blood Culture - Final
Blood/Venous No Growth - Final Report
01/04/24 14:58 Blood Culture - Final
Blood/Venous No Growth - Final Report
01/05/24 13:14 Urine Culture - Final
Urine
01/04/24 22:11 MRSA Screen - Final
Nose No Methicillin Resistant Staphylococcus aureus isolated.
01/04/24 13:37 Urine Culture - Final
Urine
01/04/24 CT a/p: No CTA evidence for acute active gastrointestinal hemorrhage. Small amount of air in the right intrarenal collecting system and right renal pelvis (either secondary to emphysematous pyelitis or recent instrumentation). Mild debris
in the distended right renal pelvis. Moderate distention of the right renal pelvis and right upper pole intrarenal calyces. Mild urothelial thickening and mild distention of the right ureter suggesting ascending urinary tract infection. Patel
catheter in moderate air in the urinary bladder. Infrarenal IVC filter containing thrombus.
01/04/24 CXR: No acute pulmonary process identified.
[2024-01-10 10:49] LABS: Glucose - Point of Care 132 mg/dl (70-99)
[2024-01-10] MEDS: KCL 40 MEQ PO (11:43)
[2024-01-10] MEDS: CIPRO 500 MG PO ×2 (11:43→20:26)
[2024-01-10 12:53] LABS: Glucose - Point of Care 64 mg/dl (70-99)
[2024-01-10] MEDS: NOVOLOG FLEXPEN-LOW RESISTANCE SC ×2 (13:06→17:18)
[2024-01-10 13:36] LABS: Glucose - Point of Care 75 mg/dl (70-99)
--- NOTE | 2024-01-10 13:53 | CM ---
Reviewed chart, [facility], [facility] offered a bed. [facility] confirmed receipt of referral but has not yet offered a bed. Will f/u with admissions and get back to patient.
Plan: Case management will continue to follow and assist with discharge planning. SNF when stable.
[2024-01-10 16:47] LABS: Glucose - Point of Care 85 mg/dl (70-99)
[2024-01-10] MEDS: ProAmatine 10 MG PO (17:17)
[2024-01-10] MEDS: LIPITOR 10 MG PO (17:19)
--- NOTE | 2024-01-10 18:18 | W.PN.HOSP.TC ---
Addendum entered and electronically signed by Venkat Taveras MD 01/11/24 05:39:
Attending Addendum-
I saw and evaluated the patient. I reviewed the resident�s note and agree with findings and plan as documented in the resident�s note. Sub: Feels weak and fatigued. No blood per rectum. Full 12 point ROS reviewed and negative except as documented
Exam: Vitals reviewed in chart GEN-NAD heart RRR lungs decreased at bases abd soft LE trace edema b/l
# Hemorrhagic shock secondary to GI bleed
- Acute blood loss on chronic anemia
- likely due to angiectasia/esophagitis
- no scopes done during this admission
- Status-post 3 units of pRBC and 3 units of platelets
- Follow CBC.
- Transfuse for hemoglobin <7 and platelet <10.
- cont pantoprazole BID x 1 month then daily
- Gastroenterology signed off
# Possible CAUTI
- Urine and blood cultures no growth.
- Maintain Savage.
- transition Rocephin->cipro until 01/10
- Infectious disease following.
# Hypokalemia
- replete
- repeat mg and K in am
# Acute kidney injury
- Resolved
- Follow BMP.
# Orthostatic Hypotension
- cont midodrine
# Chronic urinary retention
-Chronic indwelling Savage catheter
- Savage status since February 2023.
- Last changed on 01/04
# Infrarenal IVC filter thrombosis
-History of bilateral pulmonary embolism
- Not on anticoagulation; will need anticoagulation after platelet count has been optimized.
- Filter placed around 2009.
- Was not removed when patient was lost to follow-up, according to daughter.
- No indication for interventions, per vascular surgery.
# Chronic bicytopenia
- anemia and thrombocytopenia improving
- Baseline hemoglobin around 8.
- Followed at [facility]; on-going discussions about a potential bone marrow biopsy outpatient.
# Scleroderma/SLE
- Transition to home dose steroids in dc
# Chronic HFpEF
- Resume furosemide
- restart metolazone tomorrow if stable.
# Essential hypertension
- restart metoprolol.
# Pulmonary HTN
- cont sildenafil
# Gastroesophageal reflux disease
Hiatal hernia
- Continue pantoprazole.
# Sacral wound, stage III/Decubitus heel wound, stage I
- Sacral wound possibly related to fecal incontinence and/or pressure.
- Wound care following.
Code status
- Full.
[facility] in am
Time spent coordinating care, review of plan of care with resident, personally reviewed records in EMR, med rec, consults, notes, labs, radiology, d/w nursing � 59 mins
Original Note:
Today's Communication/Plan
-
Repleted electrolytes
Encouraged incentive spirometry
Rocephin switched to Cipro 100 twice daily
Possible discharge tomorrow
Assessment / Plan
Assessment / Plan
Assessment
73-year-old female with extensive with history of recurrent UTIs in the past and indwelling Savage catheter since February (due to overactive bladder?), who presented from [facility] with suspected seizure (?) and weakness/decreased oral intake for
the past 4 days. Initial labs in ED showed elevated white count and lactic acid, worsening anemia and thrombocytopenia compared to baseline, and hemodynamic instability requiring pressors. Chest x-ray (01/03) and head CT were normal-CTA suggested
ascending urinary tract infection but no evidence of active GI bleeding. Patient was transferred from the ICU to telemetry on 01/06.
When I visited the patient this AM, vital signs were as follows: BP 119/72, PA 95, RR 23, O2sat 95% on RA. Afebrile.
Chronic conditions prior to admission
overactive bladder
dyslipidemia
hiatal hernia
pulmonary hypertension
chronic anemia (vit b12 def)
chronic thrombocytopenia
glaucoma
cataracts
PE (2006) and subsequent IVC filter
CREST/ scleroderma/lupus overlap syndrome
minimal-change nephropathy
Assessment/ plan
# Hemorrhagic shock with component of sepsis (most likely UTI)- Resolved
Cont midodrine 10
Cont prednisone 50
Leukocytosis resolved
ID following-Rocephin changed to Cipro 500 twice daily through 01/10
U/C :30k cfu/ml- Presumptive Proteus mirabilis, Presumptive Escherichia coli, 2 additional Gram negative bacilli and Streptococcus species.
Blood culture negative (final)
CXR (01/07): No acute pathology (basilar atelectasis)
Patient desaturated on room air this afternoon-currently saturating well on 1 lit O2-maintain SpO2 more than 92%
Encourage incentive spirometry
Hemoglobin stable-no evidence of GI bleeding- status post 3 unit pRBC (last tx: 01/05)-transfuse if needed to keep hemoglobin > 7
Platelets stable- status post 3 unit platelets (last tx: 01/05)-transfuse if needed to keep platelets>50
Trend CBC, Temps, BMP
# Acute on chronic anemia
Hemoglobin stable-no evidence of GI bleeding- status post 3 unit pRBC (last tx: 01/05)-transfuse if needed to keep hemoglobin > 7
BUN significantly improved
Continue PPI BID PO
GI signed off
Heme-onc peripherally following- on-going discussions about a potential bone marrow biopsy as outpatient
# Pulmonary hypertension
Cont sildenafil
#Indirect hyperbilirubinemia
Improving
Will continue to trend LFT, bili
No signs of transfusion-related reaction
Direct Jorge negative
#Infrarenal IVC filter thrombosis
No indications for intervention at this time per vascular surgery
# Dyskalemia
Hypokalemic this AM. repleted with 40 mEq KCl this morning
Will monitor K levels
Will check magnesium level
Keep K>4
# Hyponatremia, hypochloremia
Resolved-likely related to reduced oral intake
# Hypoglycemia
Switched moderate to low SSI
Bedside glucose monitoring
Maintain euglycemia at BG 140-180
#Sacral pressure ulcer
No signs of active infection/discharge
Dressing applied
Wound care
# DVT prophylaxis
SCD
Spoke to patient about possible discharge tomorrow. She is considering SNF versus home. Also deciding on which SNF she would want to go to. Case management was informed about possible discharge tomorrow and is looking into placement options for
patient.
Anticipated Discharge: Within 24 hours
Subjective/Interval History
-
Date of Service: January 10, 2024
Patient states occasional shortness of breath. Denies chest pain/abdominal pain. Denies coughing. Denies fevers/chills.
Had a bowel movement today which was not dark or bloody.
Objective Data
-
Labs:
Laboratory Results
01/10/24
07:31
WBC 5.0
Hgb 10.1 L
Hct 32.0 L
Plt Count 51 L D
Sodium 141
Potassium 3.0 L
Chloride 98
Carbon Dioxide 35 H
BUN 20 H
Creatinine 0.7
Glucose 76
Calcium 8.8
Total Bilirubin 1.8 H
AST 17
ALT 25
Alkaline Phosphatase 155 H
Vital Signs:
Vital Signs
Temp Pulse Resp BP Pulse Ox
97.6 F 94 17 99/66 93
01/10/24 15:26 01/10/24 17:17 01/10/24 15:26 01/10/24 17:17 01/10/24 15:30
I&O
01/09/24 01/10/24 01/11/24
06:59 06:59 06:59
Intake Total 510 / 510 1320 / 1320 660 / 660
Output Total 650 / 650 2410 / 2410 350 / 350
Balance -140 / -140 -1090 / -1090 310 / 310
Review of Systems
-
History Source: Patient
All other systems: Reviewed and negative
Constitutional: Reports Fatigue
Respiratory: Reports Trouble Breathing (Occasional shortness of breath)
Cardiac: Reports Chest Pain (Negative)
Abdomen/GI: Reports Abdominal Pain (Negative)
Physical Exam
-
General: Well Developed and Comfortable
HEENT: Normocephalic and Moist Mucous Membranes
Respiratory: Clear to Auscultation and Non Labored Respirations
Cardiac: Regular Rhythm and S1/S2
GI: Soft, Nontender, Nondistended and Normal Bowel Sounds
Rectal: Brown
Musculoskeletal: Edema, Right Lower Extrem and Edema, Left Lower Extrem
Skin: Warm and Dry
Neuro: Awake, Alert, Oriented and AO x 3
Psych: Calm
[2024-01-10 22:13] LABS: Glucose - Point of Care 136 mg/dl (70-99)
[2024-01-11 06:00] VITALS: BMI 25.7
[2024-01-11 07:30] LABS: % Basophils 0.2 % (0-2); % Eosinophils 0.4 % (0-6); % Immature Granulocytes 2.2 % (0-0.5); % Lymphocytes 4.6 % (20.5-51.1); % Monocytes 6.1 % (1.7-9.3); % Neutrophils 86.5 % (42.2-75.2); Absolute Immature Granulocytes 0.1 10^3/uL (0-0.05); Absolute Lymphocytes 0.3 10^3/uL (1.2-3.4); Absolute Monocytes 0.3 10^3/uL (0.1-0.6); Absolute Neutrophils 4.7 10^3/uL (1.4-6.5); Hematocrit 31.6 % (37.0-47.0); Hemoglobin 10.1 g/dL (12.0-16.0); Mean Corpuscular Hgb 31.6 pg (27.0-31.0); Mean Corpuscular Volume 98.8 fL (81.0-99.0); Nucleated Red Blood Cells % 0.6 %; Platelet Count 49 10^3/uL (130-400); Red Cell Dist. Width 24.3 % (11.5-14.5); White Blood Cell Count 5.4 10^3/uL (4.8-10.8)
[2024-01-11 07:47] LABS: Glucose - Point of Care 95 mg/dl (70-99)
[2024-01-11 08:17] VITALS: BP 120/66
[2024-01-11 08:21] LABS: Blood Urea Nitrogen 20 mg/dl (7-17); Calcium 8.6 mg/dl (8.4-10.2); Carbon Dioxide 37 mmol/L (22-30); Chloride 94 mmol/L (98-107); Estimated Creatinine Clearance 61 ml/min; Glucose 85 mg/dl (70-99); Magnesium 1.5 mg/dl (1.6-2.3); Potassium 3.1 mmol/L (3.5-5.1); Sodium 141 mmol/L (135-145); eGFR > 60.00
[2024-01-11] MEDS: CIPRO 500 MG PO ×2 (08:49→20:38)
[2024-01-11] MEDS: NOVOLOG FLEXPEN-LOW RESISTANCE SC ×2 (08:49→12:14)
[2024-01-11] MEDS: DELTASONE 50 MG PO (08:49)
[2024-01-11] MEDS: LOPRESSOR 12.5 MG PO ×2 (08:50→20:37)
[2024-01-11] MEDS: REVATIO 20 MG PO ×3 (08:51→22:03)
[2024-01-11] MEDS: LASIX 80 MG PO ×2 (08:51→15:38)
[2024-01-11] MEDS: ProAmatine PO (08:53)
[2024-01-11] MEDS: SANTYL OINTMENT 1 APPLIC TOPICAL (08:53)
[2024-01-11] MEDS: PROTONIX 40 MG PO ×2 (08:53→20:36)
[2024-01-11] MEDS: DESITIN MAXIMUM STRENGTH PASTE 1 APPLIC TOPICAL (08:54)
[2024-01-11] MEDS: KCL 40 MEQ PO ×2 (10:02→14:50)
--- NOTE | 2024-01-11 10:32 | W.PN.HOSP.TC ---
Addendum entered and electronically signed by Venkat Taveras MD 01/11/24 23:42:
Attending Addendum-
I saw and evaluated the patient. I reviewed the resident�s note and agree with findings and plan as documented in the resident�s note. Sub: Feels weak and fatigued. No blood per rectum. 'I dont know where I wanna go' Full 12 point ROS reviewed and
negative except as documented Exam: Vitals reviewed in chart GEN-NAD heart RRR lungs decreased at bases abd soft LE trace edema b/l
# Hemorrhagic shock secondary to GI bleed
- Acute blood loss on chronic anemia
- likely due to angiectasia/esophagitis
- no scopes done during this admission
- Status-post 3 units of pRBC and 3 units of platelets
- Transfuse for hemoglobin <7 and platelet <10.
- cont pantoprazole BID x 1 month then daily
- Gastroenterology signed off
# Possible CAUTI
- Urine and blood cultures no growth.
- Maintain Savage
- completed abx
- Infectious disease following.
# Hypokalemia
- replete aggressively
- restart supplementation
- repeat mg and K in am
# Hypomagnesemia
- replete
- repeat mg in am
# Acute kidney injury
- Resolved
- Follow BMP.
# Orthostatic Hypotension
- cont midodrine
# Chronic urinary retention
- Chronic indwelling Savage catheter
- Savage status since February 2023.
- Last changed on 01/04
# Infrarenal IVC filter thrombosis
- History of bilateral pulmonary embolism
- Not on anticoagulation- high risk bleed
- Filter placed around 2009.
- Was not removed when patient was lost to follow-up, according to daughter.
- No indication for interventions, per vascular surgery.
# Chronic bicytopenia
- anemia and thrombocytopenia improving
- Baseline hemoglobin around 8.
- Followed at [facility]; on-going discussions about a potential bone marrow biopsy outpatient.
# Scleroderma/SLE
- cont home dose steroids
# Chronic HFpEF
- decrease furosemide
- restart metolazone on DC
# Essential hypertension
- cont metoprolol.
# Pulmonary HTN
- cont sildenafil
# Gastroesophageal reflux disease
Hiatal hernia
- Continue pantoprazole.
# Sacral wound, stage III/Decubitus heel wound, stage I
- Sacral wound possibly related to fecal incontinence and/or pressure.
- Wound care following.
Code status
- Full.
Dispo prev from likely [place] to [place] in am per family request
Time spent coordinating care, review of plan of care with resident, personally reviewed records in EMR, med rec, consults, notes, labs, radiology, d/w nursing/CM � 55 mins
Original Note:
Today's Communication/Plan
-
Replete potassium
Replete magnesium
Patient is stable for discharge
Assessment / Plan
Assessment / Plan
Assessment
73-year-old female with extensive with history of recurrent UTIs in the past and indwelling Savage catheter since February (due to overactive bladder?), who presented from [facility] with suspected seizure (?) and weakness/decreased oral intake for
the past 4 days. Initial labs in ED showed elevated white count and lactic acid, worsening anemia and thrombocytopenia compared to baseline, and hemodynamic instability requiring pressors. Chest x-ray (01/03) and head CT were normal-CTA suggested
ascending urinary tract infection but no evidence of active GI bleeding. Patient was transferred from the ICU to telemetry on 01/06.
When I visited the patient this AM, vital signs were as follows: BP 119/72, ID 95, RR 23, O2sat 95% on RA. Afebrile.
Chronic conditions prior to admission
overactive bladder
dyslipidemia
hiatal hernia
pulmonary hypertension
chronic anemia (vit b12 def)
chronic thrombocytopenia
glaucoma
cataracts
PE (2006) and subsequent IVC filter
CREST/ scleroderma/lupus overlap syndrome
minimal-change nephropathy
Assessment/ plan
# Hemorrhagic shock with component of sepsis (most likely UTI)- Resolved
Cont midodrine 10
Cont prednisone 50
Leukocytosis resolved
ID following-last dose of Rocephin today
U/C :30k cfu/ml- Presumptive Proteus mirabilis, Presumptive Escherichia coli, 2 additional Gram negative bacilli and Streptococcus species.
Blood culture negative (final)
CXR (01/07): No acute pathology (basilar atelectasis)
Patient saturating 97% on RA
Encourage incentive spirometry
Hemoglobin stable-no evidence of GI bleeding- status post 3 unit pRBC (last tx: 01/05)-transfuse if needed to keep hemoglobin > 7
Platelets stable- status post 3 unit platelets (last tx: 01/05)-transfuse if needed to keep platelets>50
Follow CBC, Temps, BMP
# Acute on chronic anemia
Hemoglobin stable-no evidence of GI bleeding- status post 3 unit pRBC (last tx: 01/05)-transfuse if needed to keep hemoglobin > 7
BUN significantly improved
Continue PPI BID PO
GI signed off
Heme-onc peripherally following- potential bone marrow biopsy as outpatient
# Pulmonary hypertension
Cont sildenafil
#Indirect hyperbilirubinemia
Improving
Will continue to trend LFT, bili
No signs of transfusion-related reaction
Direct Jorge negative
#Infrarenal IVC filter thrombosis
No indications for intervention at this time per vascular surgery
# Dyskalemia
Hypokalemic this AM. repleted with 40 mEq KCl this morning and 40 mEQ later in the day
#Hypomagnesemia
repleted with Magnesium Oxide
# Hyponatremia, hypochloremia
Resolved-likely related to reduced oral intake
# Hypoglycemia
Switched moderate to low SSI
Bedside glucose monitoring
Maintain euglycemia at BG 140-180
#Sacral pressure ulcer
No signs of active infection/discharge
Dressing applied
Wound care
# DVT prophylaxis
SCD
Spoke to patient and children (Juan and Debra) about discharge today. Patient would like to go back to [facility] but children would want her to go to [facility] or [facility]. Case management is actively involved and looking into placement options.
Anticipated Discharge: Today
Subjective/Interval History
-
Date of Service: January 11, 2024
Patient does not offer any complaints. Blood pressures have been stable. Remains afebrile.
Objective Data
-
Labs:
Laboratory Results
01/11/24
07:03
WBC 5.4
Hgb 10.1 L
Hct 31.6 L
Plt Count 49 L
Sodium 141
Potassium 3.1 L
Chloride 94 L
Carbon Dioxide 37 H
BUN 20 H
Creatinine 0.7
Glucose 85
Calcium 8.6
Vital Signs:
Vital Signs
Temp Pulse Resp BP Pulse Ox
97.4 F 102 22 120/66 97
01/11/24 08:17 01/11/24 08:53 01/11/24 08:17 01/11/24 08:53 01/11/24 08:17
I&O
01/10/24 01/11/24 01/12/24
06:59 06:59 06:59
Intake Total 1320 / 1320 780 / 780
Output Total 2410 / 2410 1150 / 1150
Balance -1090 / -1090 -370 / -370
Review of Systems
-
History Source: Patient
All other systems: Reviewed and negative
Constitutional: Reports Fatigue and Weakness
Physical Exam
-
General: Conversant and Appears Chronically Ill
HEENT: Normocephalic and Moist Mucous Membranes
Respiratory: Clear to Auscultation
Cardiac: Regular Rhythm and S1/S2
GI: Soft, Nontender, Nondistended and Normal Bowel Sounds
Musculoskeletal: Edema, Right Lower Extrem and Edema, Left Lower Extrem
Skin: Warm and Dry
Neuro: Awake, Alert, Oriented and AO x 3
--- NOTE | 2024-01-11 11:23 | W.PN.UPDATE ---
Update Note
Progress Note Update
CBC stable
Hematology will sign off. f/u with Dr. Baldwin on 02/03
Please call w/ any questions
[2024-01-11 11:53] LABS: Glucose - Point of Care 133 mg/dl (70-99)
[2024-01-11] MEDS: CITROMA 300 ML PO (12:14)
[2024-01-11] MEDS: ProAmatine 10 MG PO ×2 (13:53→17:11)
[2024-01-11] MEDS: MAGNESIUM OXIDE 500 MG PO (14:51)
[2024-01-11 15:00] VITALS: BP 117/73; PULSE 96; O2SAT 97
[2024-01-11] MEDS: TYLENOL 650 MG PO (15:42)
[2024-01-11 15:45] VITALS: BP 109/69
[2024-01-11 16:30] LABS: Glucose - Point of Care 152 mg/dl (70-99)
--- NOTE | 2024-01-11 16:41 | CM ---
Addendum entered by ANITA Singh 01/11/24 16:48:
Attending/resident updated.
Original Note:
Reviewed chart, spoke with resident for attending who stated that patient is medically stable for discharge. Placed a call to Itzel in admissions at [facility] who confirmed bed availability for tomorrow. Spoke with Yulisa in admissions at [facility]
that can also accept patient tomorrow. Spoke with Jayesh in admissions at [facility] who stated that there are no beds this week. Will f/u with patient's son in the am, to update that he can choose between, [facility] and [facility].
Resident updated.
Plan: Case management will continue to follow and assist with discharge planning. Transfer to [facility] or [facility] SNF in the am if patient is still medically cleared to go.
[2024-01-11] MEDS: NOVOLOG FLEXPEN-LOW RESISTANCE 1 UNITS SC (17:07)
[2024-01-11] MEDS: LIPITOR 10 MG PO (17:10)
[2024-01-11] MEDS: ZOFRAN 4 MG IV (17:41)
[2024-01-11 21:22] LABS: Blood Urea Nitrogen 21 mg/dl (7-17); Calcium 8.5 mg/dl (8.4-10.2); Carbon Dioxide 33 mmol/L (22-30); Chloride 95 mmol/L (98-107); Estimated Creatinine Clearance 61 ml/min; Glucose 172 mg/dl (70-99); Magnesium 1.5 mg/dl (1.6-2.3); Potassium 4.3 mmol/L (3.5-5.1); Sodium 136 mmol/L (135-145); eGFR > 60.00
[2024-01-11 21:51] LABS: Glucose - Point of Care 195 mg/dl (70-99)
[2024-01-11 23:20] VITALS: BP 114/65
[2024-01-12 06:00] VITALS: BMI 25.0
[2024-01-12 06:56] LABS: % Basophils 0.4 % (0-2); % Eosinophils 0.2 % (0-6); % Immature Granulocytes 1.7 % (0-0.5); % Lymphocytes 4.2 % (20.5-51.1); % Monocytes 5.7 % (1.7-9.3); % Neutrophils 87.8 % (42.2-75.2); Absolute Immature Granulocytes 0.1 10^3/uL (0-0.05); Absolute Lymphocytes 0.2 10^3/uL (1.2-3.4); Absolute Monocytes 0.3 10^3/uL (0.1-0.6); Absolute Neutrophils 4.8 10^3/uL (1.4-6.5); Hematocrit 31.3 % (37.0-47.0); Hemoglobin 9.7 g/dL (12.0-16.0); Mean Corpuscular Hgb 31.2 pg (27.0-31.0); Mean Corpuscular Volume 100.6 fL (81.0-99.0); Mean Platelet Volume 11.5 fL (7.4-10.4); Nucleated Red Blood Cells % 0 %; Platelet Count 44 10^3/uL (130-400); Red Blood Cell Count 3.11 10^6/uL (4.20-5.40); Red Cell Dist. Width 24.4 % (11.5-14.5); White Blood Cell Count 5.4 10^3/uL (4.8-10.8)
[2024-01-12 07:37] VITALS: BP 106/58
[2024-01-12 07:37] LABS: Anisocytosis Slight
[2024-01-12 07:38] LABS: Normal RBC Morphology No
[2024-01-12 07:54] LABS: Blood Urea Nitrogen 19 mg/dl (7-17); Calcium 8.7 mg/dl (8.4-10.2); Carbon Dioxide 38 mmol/L (22-30); Chloride 96 mmol/L (98-107); Estimated Creatinine Clearance 53 ml/min; Glucose 95 mg/dl (70-99); Magnesium 1.6 mg/dl (1.6-2.3); Potassium 3.4 mmol/L (3.5-5.1); Sodium 139 mmol/L (135-145); eGFR > 60.00
[2024-01-12 07:55] LABS: Glucose - Point of Care 97 mg/dl (70-99)
[2024-01-12] MEDS: DELTASONE 50 MG PO (08:16)
[2024-01-12] MEDS: LOPRESSOR 12.5 MG PO (08:16)
[2024-01-12] MEDS: PROTONIX 40 MG PO (08:16)
[2024-01-12] MEDS: REVATIO 20 MG PO (08:16)
[2024-01-12] MEDS: KCL 40 MEQ PO ×2 (08:16→14:12)
[2024-01-12] MEDS: LASIX 80 MG PO ×2 (08:18→16:14)
[2024-01-12] MEDS: ProAmatine 10 MG PO ×2 (08:19→14:14)
[2024-01-12] MEDS: NOVOLOG FLEXPEN-LOW RESISTANCE SC ×2 (08:19→11:39)
[2024-01-12] MEDS: DESITIN MAXIMUM STRENGTH PASTE 1 APPLIC TOPICAL (08:19)
[2024-01-12] MEDS: SANTYL OINTMENT 1 APPLIC TOPICAL (08:20)
--- NOTE | 2024-01-12 10:12 | W.PN.HOSP.TC ---
Addendum entered and electronically signed by Venkat Taveras MD 01/12/24 23:27:
Attending Addendum-
I saw and evaluated the patient. I reviewed the resident�s note and agree with findings and plan as documented in the resident�s note. Sub: Ready to DC to get stronger. 'Im happy you're taking care of me!' Full 12 point ROS reviewed and negative
except as documented Exam: Vitals reviewed in chart GEN-NAD heart RRR lungs decreased at bases abd soft LE trace edema b/l
# Hemorrhagic shock secondary to GI bleed
- Acute blood loss on chronic anemia
- likely due to angiectasia/esophagitis
- no scopes done during this admission
- Status-post 3 units of pRBC and 3 units of platelets
- Transfuse for hemoglobin <7 and platelet <10.
- cont pantoprazole BID x 1 month then daily
- Gastroenterology signed off
# Possible CAUTI
- Urine and blood cultures no growth.
- Maintain Savage
- completed abx
- Infectious disease following.
# Hypokalemia
- replete aggressively
- restart supplementation
- repeat k as OP
# Hypomagnesemia
- replete
- repeat mg as OP
# Acute kidney injury
- Resolved
- Follow BMP.
# Orthostatic Hypotension
- cont midodrine
# Chronic urinary retention
- Chronic indwelling Savage catheter
- Savage status since February 2023.
- Last changed on 01/04
# Infrarenal IVC filter thrombosis
- History of bilateral pulmonary embolism
- Not on anticoagulation- high risk bleed
- Filter placed around 2009.
- Was not removed when patient was lost to follow-up, according to daughter.
- No indication for interventions, per vascular surgery.
# Chronic bicytopenia
- anemia and thrombocytopenia improving
- Baseline hemoglobin around 8.
- Followed at [facility]; on-going discussions about a potential bone marrow biopsy outpatient.
# Scleroderma/SLE
- cont home dose steroids
# Chronic HFpEF
- decrease furosemide to 60
- cont metolazone q Wednesday on DC
# Essential hypertension
- cont metoprolol.
# Pulmonary HTN
- cont sildenafil
# Gastroesophageal reflux disease
Hiatal hernia
- Continue pantoprazole.
# Sacral wound, stage III/Decubitus heel wound, stage I
- Sacral wound possibly related to fecal incontinence and/or pressure.
- Wound care following.
Code status
- Full.
Dispo prev [place] , [place] to [place] in am per family request
Time spent coordinating care, DC planning, review of DC plan of care with resident, transition of care, review of records, med rec/scripts sent electronically, consults, notes, d/w consultants, nursing, and CM� 35 mins
Original Note:
Today's Communication/Plan
-
Repleted potassium and magnesium
Patient is stable for discharge
Assessment / Plan
Assessment / Plan
Assessment
73-year-old female with extensive with history of recurrent UTIs in the past and indwelling Savage catheter since February (due to overactive bladder?), who presented from [facility] home with suspected seizure (?) and weakness/decreased oral intake for
the past 4 days. Initial labs in ED showed elevated white count and lactic acid, worsening anemia and thrombocytopenia compared to baseline, and hemodynamic instability requiring pressors. Chest x-ray (01/03) and head CT were normal-CTA suggested
ascending urinary tract infection but no evidence of active GI bleeding. Patient was transferred from the ICU to telemetry on 01/06.
When I visited the patient this AM, vital signs were as follows: BP 119/72, KS 95, RR 23, O2sat 95% on RA. Afebrile.
Chronic conditions prior to admission
overactive bladder
dyslipidemia
hiatal hernia
pulmonary hypertension
chronic anemia (vit b12 def)
chronic thrombocytopenia
glaucoma
cataracts
PE (2006) and subsequent IVC filter
CREST/ scleroderma/lupus overlap syndrome
minimal-change nephropathy
Assessment/ plan
# Hemorrhagic shock with component of sepsis (most likely UTI)- Resolved
Cont midodrine 10
Cont prednisone 50
Leukocytosis resolved
ID following-last dose of Rocephin today
U/C :30k cfu/ml- Presumptive Proteus mirabilis, Presumptive Escherichia coli, 2 additional Gram negative bacilli and Streptococcus species.
Blood culture negative (final)
CXR (01/07): No acute pathology (basilar atelectasis)
Patient saturating 97% on RA
Encourage incentive spirometry
Hemoglobin stable-no evidence of GI bleeding- status post 3 unit pRBC (last tx: 01/05)-transfuse if needed to keep hemoglobin > 7
Platelets stable- status post 3 unit platelets (last tx: 01/05)-transfuse if needed to keep platelets>50
Follow CBC, Temps, BMP
# Acute on chronic anemia
Hemoglobin stable-no evidence of GI bleeding- status post 3 unit pRBC (last tx: 01/05)-transfuse if needed to keep hemoglobin > 7
BUN significantly improved
Continue PPI BID PO
GI signed off
Heme-onc peripherally following- potential bone marrow biopsy as outpatient
# Pulmonary hypertension
Cont sildenafil
#Indirect hyperbilirubinemia
Improving
Will continue to trend LFT, bili
No signs of transfusion-related reaction
Direct Jorge negative
#Infrarenal IVC filter thrombosis
No indications for intervention at this time per vascular surgery
# Dyskalemia
Hypokalemic this AM. Repleted
#Hypomagnesemia
repleted with Magnesium Oxide 500
# Hyponatremia, hypochloremia
Resolved-likely related to reduced oral intake
# Hypoglycemia
Switched moderate to low SSI
Bedside glucose monitoring
Maintain euglycemia at BG 140-180
#Sacral pressure ulcer
No signs of active infection/discharge
Dressing applied
Wound care
# DVT prophylaxis
SCD
Spoke to patient and children (Andrew) about discharge today. [facility] an available bed and both patient and her son ANDREW agree.
Anticipated Discharge: Today
Subjective/Interval History
-
Date of Service: January 12, 2024
Patient does not offer any complaints. Denies chest pain, shortness of breath, abdominal pain, nausea/vomiting. She is not in respiratory distress and saturating well on room air.
Objective Data
-
Labs:
Laboratory Results
01/12/24
06:31
WBC 5.4
Hgb 9.7 L
Hct 31.3 L
Plt Count 44 L
Sodium 139
Potassium 3.4 L
Chloride 96 L
Carbon Dioxide 38 H
BUN 19 H
Creatinine 0.8
Glucose 95
Calcium 8.7
Vital Signs:
Vital Signs
Temp Pulse Resp BP Pulse Ox
97.5 F 96 16 106/58 92
01/12/24 07:37 01/12/24 08:19 01/12/24 07:37 01/12/24 08:19 01/12/24 07:37
I&O
01/11/24 01/12/24 01/13/24
06:59 06:59 06:59
Intake Total 780 / 780 480 / 480
Output Total 1150 / 1150 1075 / 1075
Balance -370 / -370 -595 / -595
Review of Systems
-
History Source: Patient
All other systems: Reviewed and negative
Physical Exam
-
General: Well Developed and No Apparent Distress
HEENT: Normocephalic, Moist Mucous Membranes and Anicteric
Respiratory: Clear to Auscultation
Cardiac: Regular Rhythm and S1/S2
GI: Soft, Nontender, Nondistended and Normal Bowel Sounds
Musculoskeletal: Edema, Right Lower Extrem and Edema, Left Lower Extrem
Skin: Warm and Dry
Neuro: Awake, Alert, Oriented and AO x 3
Psych: Calm
--- NOTE | 2024-01-12 11:12 | CM ---
Addendum entered by ANITA Singh 01/12/24 16:05:
Patient signed IMM. Placed a call to patient's son to update about transfer time. He had no concerns.
Original Note:
Reviewed chart, placed a call to Yulisa in admissions at [facility] who confirmed that she has a bed for patient. Spoke with Itzel in admissions at [facility] who also has a bed today.
Placed a call to patient's son, Juan, who stated that he prefers [facility] for patient.
Messaged resident for attending to update and she stated that she will advise attending and get back with a determination regarding whether she is still medically stable.
[facility] # for report [phone] and fax [phone]
Will complete medical necessity and transfer sheet to [facility].
Imm reviewed, patient's son in agreement with discharge.
Plan: Case management will continue to follow and assist with discharge planning. [facility] when medically cleared for discharge.
[2024-01-12 11:26] LABS: Glucose - Point of Care 87 mg/dl (70-99)
[2024-01-12] MEDS: MAGNESIUM OXIDE 500 MG PO (14:12)
[2024-01-12 14:51] VITALS: BP 135/89; PULSE 80; O2SAT 97
[2024-01-12 15:13] VITALS: BP 135/89; PULSE 80; O2SAT 97
[2024-01-12 15:28] VITALS: BP 135/89
[2024-01-12] MEDS: REVATIO PO ×2 (16:14→16:18)
[2024-01-12] MEDS: TYLENOL 650 MG PO (16:16)
[2024-01-12 16:44] LABS: Glucose - Point of Care 178 mg/dl (70-99)
[2024-01-12] MEDS: LIPITOR 10 MG PO (18:09)
[2024-01-12] MEDS: ProAmatine PO (18:10)
--- NOTE | 2024-01-12 19:28 | W.DCSUMMARY ---
Addendum entered and electronically signed by Venkat Taveras MD 01/12/24 23:29:
Read, reviewed, and agree. See same day progress note for additional details. lasix changed to 60mg from 80 daily. Electrolytes repleted prior to DC. Repeat labs as OP.
Dave Taveras MD
Original Note:
Documented by User: Jasmyne Walker MD, Resident 01/12/24 19:56
Discharge Summary
Discharge Data
Date of Admission: 01/04/24
Date of Discharge: 01/12/24
-
Pending Results: No
Hospital Course
Patient is 73-year-old female from [facility] with past medical history of chronic anemia and thrombocytopenia, minimal-change disease, lupus/scleroderma overlap, pulmonary hypertension, GERD, and chronic HFpEF, with history of recurrent UTIs in
the past and indwelling Savage catheter since February who presented from [facility] with suspected seizure (?) and weakness/decreased oral intake for the past 4 days prior to admission. Initial labs in ED showed elevated white count and lactic acid,
worsening anemia and thrombocytopenia compared to baseline, active U/A and hemodynamic instability requiring pressors. Chest x-ray (01/03) and head CT were normal-CTA suggested ascending urinary tract infection but no evidence of active GI bleeding.
CXR and head CT were normal on admission. Patient was initially admitted to ICU. Vanco and Zosyn were initially started in the ED but MRSA screen was negative and Vanco discontinued. Patient developed worsening thrombocytopenia and ID recommended
switching Zosyn to ceftriaxone. B/c was negative. initiall U/C suggested posiible contamination and repeat U/C showed 30k mixed mark, presumptive Ecoli, gram negative bacili and Proteus. Patients initial Savage was exchanged with a new Savage in the
ICU. GI was consulted however endoscopy was not performed due to unstable hemodynamics (requiring pressors) and low platelets. Heme-onc recommended outpatient bone marrow biopsy. Patient received 3 units of PRBC and 3 units of platelet during stay
and was able to maintain blood pressure off pressors on day 4 of admission. Patient completed antibiotic course during stay. She had low potassium and magnesium levels which were repleted daily.
Today, patient is in fair clinical condition and is stable for discharge to SNF ([facility]).
Patient has been advised on continuing previous medications as before, with a change in the following medication dosage after discharge:
Midodrine 5 3 times daily increased to midodrine 10 3 times daily
Pantoprazole 40 twice daily for a month and once daily thereafter
Furosemide 80 decreased to furosemide 60 60 (one half tab once daily)
Discharge Plan
-
Patient Disposition: Assisted/SNF
Discharge Diagnosis/Procedures: Septic shock, Gastrointestinal bleeding, Acute kidney injury, Acute on chronic thrombocytopenia, Acute on chronic anemia
Condition: Fair
Diet: As tolerated and Regular
Activity: As tolerated
Driving Restrictions: As prior to admission
Bathing Restrictions: None
Blood Work: repeat K and Mg
Activity Restrictions/Additional Instructions:
Wound Care Instructions
Sacrum: clean with saline or soap and water, skin prep or zinc oxide to periwound, Santyl(saniya thick) to base of open ulcers, adaptic and dry dressing, change daily and prn drainage/soilage.
Air mattress with turning schedule
offloading cushion for chair.
encourage protein in diet.
Follow up at wound care center call for an appointment.
Referrals:
Anthony Dave MD [Family Provider] -
Additional Discharge Medication Instructions: Please check your serum potassium level in 3 days. Your furosemide has been decreased to 60 daily (one and a half tab daily). Your midodrine has been increased to 10mg three times daily. Please take
pantoprazole twice daily for a month and once daily thereafter. Please continue the rest of your medications as previously.
Prescriptions:
New
furosemide 40 mg tablet
60 mg PO DAILY Qty: 45 0RF
Continued
sildenafil (pulm.hypertension) 20 mg Tablet
20 mg PO TID
Santyl 250 unit/gram Ointment
1 applic TOPICAL DAILY
azelastine 137 mcg (0.1 %) Moon,Non-Aerosol
1 spray INTRANASAL BID
prednisone 50 mg tablet
50 mg PO DAILY
metolazone 2.5 mg Tablet
2.5 mg PO TU Qty: 10 0RF
pantoprazole 40 mg Tablet,Delayed Release (Dr/Ec)
40 mg PO BID Qty: 60 0RF
tramadol 50 mg Tablet
50 mg PO [id number] PRN (Reason: severe pain)
magnesium hydroxide [Milk of Magnesia] 400 mg/5 mL Suspension
30 ml PO [id number] PRN (Reason: no bm 2 days)
bisacodyl 10 mg Suppository
10 mg MA DAILYPRN PRN (Reason: no bm 8 hrs after mom)
Fleet Enema 19-7 gram/118 mL Enema
118 ml MA DAILYPRN PRN (Reason: no bm 8 hrs after dulcolax)
zinc oxide 20 % Paste
1 ea TOPICAL DAILY
zinc oxide 20 % Paste
1 ea TOPICAL DAILYPRN PRN (Reason: buttocks soilage/dislodgement)
acetaminophen 325 mg tablet
650 mg PO Q6HPRN PRN (Reason: mild pain/ fever)
atorvastatin 10 mg tablet
10 mg PO QPM
metoprolol succinate 25 mg tablet extended release 24 hr
12.5 mg PO HS
Rx Instructions:
Hold for SBP<100/HR<60
potassium chloride 20 mEq Tablet,Er Particles/Crystals
40 meq PO DAILY 30 Days Qty: 60 0RF
Changed
midodrine 5 mg tablet
10 mg PO TID Qty: 180 0RF
Rx Instructions:
Hold if SBP>110
Discontinued
furosemide [Lasix] 40 mg Tablet
80 mg PO BID
metoprolol succinate 25 mg Tablet Extended Release 24 Hr
25 mg PO DAILY
Rx Instructions:
Hold for SBP<100/HR<60
Discharge Orders:
Discharge Patient (As Directed); Ordered 01/12/24
Ordered By: Jasmyne Walker
Discharge Date and Time
Discharge Date/Time: 01/12/24 19:13
Print Language: GUYANESE

Documented by User: Venkat Taveras MD 01/12/24 23:21
Discharge Summary
Discharge Data
Date of Admission: 01/04/24
Date of Discharge: 01/12/24
Discharge Plan
-
Patient Disposition: Assisted/SNF
Discharge Diagnosis/Procedures: Septic shock, Gastrointestinal bleeding, Acute kidney injury, Acute on chronic thrombocytopenia, Acute on chronic anemia
Condition: Fair
Diet: As tolerated and Regular
Activity: As tolerated
Driving Restrictions: As prior to admission
Bathing Restrictions: None
Blood Work: repeat K and Mg
Activity Restrictions/Additional Instructions:
Wound Care Instructions
Sacrum: clean with saline or soap and water, skin prep or zinc oxide to periwound, Santyl(saniya thick) to base of open ulcers, adaptic and dry dressing, change daily and prn drainage/soilage.
Air mattress with turning schedule
offloading cushion for chair.
encourage protein in diet.
Follow up at wound care center call for an appointment.
Referrals:
Anthony Dave MD [Family Provider] -
Additional Discharge Medication Instructions: Please check your serum potassium level in 3 days. Your furosemide has been decreased to 60 daily (one and a half tab daily). Your midodrine has been increased to 10mg three times daily. Please take
pantoprazole twice daily for a month and once daily thereafter. Please continue the rest of your medications as previously.
Prescriptions:
New
furosemide 40 mg tablet
60 mg PO DAILY Qty: 45 0RF
Continued
sildenafil (pulm.hypertension) 20 mg Tablet
20 mg PO TID
Santyl 250 unit/gram Ointment
1 applic TOPICAL DAILY
azelastine 137 mcg (0.1 %) Moon,Non-Aerosol
1 spray INTRANASAL BID
prednisone 50 mg tablet
50 mg PO DAILY
metolazone 2.5 mg Tablet
2.5 mg PO TU Qty: 10 0RF
pantoprazole 40 mg Tablet,Delayed Release (Dr/Ec)
40 mg PO BID Qty: 60 0RF
tramadol 50 mg Tablet
50 mg PO [id number] PRN (Reason: severe pain)
magnesium hydroxide [Milk of Magnesia] 400 mg/5 mL Suspension
30 ml PO [id number] PRN (Reason: no bm 2 days)
bisacodyl 10 mg Suppository
10 mg MA DAILYPRN PRN (Reason: no bm 8 hrs after mom)
Fleet Enema 19-7 gram/118 mL Enema
118 ml MA DAILYPRN PRN (Reason: no bm 8 hrs after dulcolax)
zinc oxide 20 % Paste
1 ea TOPICAL DAILY
zinc oxide 20 % Paste
1 ea TOPICAL DAILYPRN PRN (Reason: buttocks soilage/dislodgement)
acetaminophen 325 mg tablet
650 mg PO Q6HPRN PRN (Reason: mild pain/ fever)
atorvastatin 10 mg tablet
10 mg PO QPM
metoprolol succinate 25 mg tablet extended release 24 hr
12.5 mg PO HS
Rx Instructions:
Hold for SBP<100/HR<60
potassium chloride 20 mEq Tablet,Er Particles/Crystals
40 meq PO DAILY 30 Days Qty: 60 0RF
Changed
midodrine 5 mg tablet
10 mg PO TID Qty: 180 0RF
Rx Instructions:
Hold if SBP>110
Discontinued
furosemide [Lasix] 40 mg Tablet
80 mg PO BID
metoprolol succinate 25 mg Tablet Extended Release 24 Hr
25 mg PO DAILY
Rx Instructions:
Hold for SBP<100/HR<60
Discharge Orders:
Discharge Patient (As Directed); Ordered 01/12/24
Ordered By: Jasmyne Walker
Discharge Date and Time
Discharge Date/Time: 01/12/24 19:13
Print Language: GUYANESE
== END 2024-01-12 19:13 | DRG 698 ==
LOC: 3 WEST ACU 15:43
PROVIDERS: Internal Medicine; Nurse Practitioner Acute Care; Nurse Practitioner Adult Health; Nurse Practitioner Primary Care; Physician Assistant Medical; Student in an Organized Health Care Education/Training Program; ADMITTING PHYSICIAN Internal Medicine; ATTENDING PHYSICIAN Family Medicine; CONSULT PHYSICIAN Internal Medicine; CONSULT PHYSICIAN Internal Medicine Critical Care Medicine; EMERGENCY PHYSICIAN Student in an Organized Health Care Education/Training Program; FAMILY PHYSICIAN Family Medicine; OTHER PHYSICIAN Internal Medicine Hematology & Oncology; OTHER PHYSICIAN Internal Medicine Infectious Disease
PROC: 30233R1 Transfusion of Nonautologous Platelets into Peripheral Vein, Percutaneous Approach (ICD-10-PCS; 2024-01-04)
PROC: 30233N1 Transfusion of Nonautologous Red Blood Cells into Peripheral Vein, Percutaneous Approach (ICD-10-PCS; 2024-01-04)
DX: T83.511A Infection and inflammatory reaction due to indwelling urethral catheter, initial encounter (principal); A41.9 Sepsis, unspecified organism; L89.153 Pressure ulcer of sacral region, stage 3; R65.21 Severe sepsis with septic shock; K21.01 Gastro-esophageal reflux disease with esophagitis, with bleeding; D62 Acute posthemorrhagic anemia; I13.0 Hypertensive heart and chronic kidney disease with heart failure and stage 1 through stage 4 chronic kidney disease, or unspecified chronic kidney disease; I50.32 Chronic diastolic (congestive) heart failure; N17.9 Acute kidney failure, unspecified; E87.20 Acidosis, unspecified; E87.1 Hypo-osmolality and hyponatremia; I42.8 Other cardiomyopathies; T82.868A Thrombosis due to vascular prosthetic devices, implants and grafts, initial encounter; E78.00 Pure hypercholesterolemia, unspecified; N18.30 Chronic kidney disease, stage 3 unspecified; D69.6 Thrombocytopenia, unspecified; M32.9 Systemic lupus erythematosus, unspecified; D63.1 Anemia in chronic kidney disease; N39.0 Urinary tract infection, site not specified; I27.29 Other secondary pulmonary hypertension; M34.9 Systemic sclerosis, unspecified; I95.89 Other hypotension; E87.5 Hyperkalemia; N32.81 Overactive bladder; E87.6 Hypokalemia; R33.8 Other retention of urine; M34.1 CR(E)ST syndrome; E88.09 Other disorders of plasma-protein metabolism, not elsewhere classified; E53.8 Deficiency of other specified B group vitamins; Y73.2 Prosthetic and other implants, materials and accessory gastroenterology and urology devices associated with adverse incidents; Y84.6 Urinary catheterization as the cause of abnormal reaction of the patient, or of later complication, without mention of misadventure at the time of the procedure; Y83.1 Surgical operation with implant of artificial internal device as the cause of abnormal reaction of the patient, or of later complication, without mention of misadventure at the time of the procedure; Z79.52 Long term (current) use of systemic steroids; Z86.718 Personal history of other venous thrombosis and embolism; Z96.643 Presence of artificial hip joint, bilateral; Z86.711 Personal history of pulmonary embolism; Z79.899 Other long term (current) drug therapy; Z87.440 Personal history of urinary (tract) infections
CPT/HCPCS: 36556; 70450; 71045; 74174; 80048; 80053; 80202; 81003; 81015; 82248; 82607; 82962; 83036; 83605; 83735; 84100; 84132; 84484; 85014; 85018; 85025; 85027; 85379; 85384; 85610; 85730; 86850; 86880; 86900; 86901; 86920; 87040; 87070; 87077; 87086; 93005; 96365; 96372; 96375; 97163; 97167; 97530; 99291; P9016; P9047; P9073; Q9967

== ENCOUNTER → 2024-01-17 10:49 | Outpatient (REF) | payer OTHER, MEDICARE, SELFPAY ==
[2024-01-17 11:54] LABS: Blood Urea Nitrogen 26 mg/dl (7-17); Calcium 8.8 mg/dl (8.4-10.2); Carbon Dioxide 34 mmol/L (22-30); Chloride 90 mmol/L (98-107); Glucose 92 mg/dl (70-99); Magnesium 1.6 mg/dl (1.6-2.3); Potassium 2.4 mmol/L (3.5-5.1); Sodium 136 mmol/L (135-145); eGFR > 60.00
[2024-01-17 11:58] LABS: Hemoglobin 8.7 g/dL (12.0-16.0); Mean Corp Hgb Conc. 33.5 g/dL (33.0-37.0); Mean Corpuscular Hgb 32.1 pg (27.0-31.0); Mean Corpuscular Volume 95.9 fL (81.0-99.0); Mean Platelet Volume 12.2 fL (7.4-10.4); Platelet Count 44 10^3/uL (130-400); Red Blood Cell Count 2.71 10^6/uL (4.20-5.40); Red Cell Dist. Width 23.6 % (11.5-14.5); White Blood Cell Count 6.6 10^3/uL (4.8-10.8)
== END ==
LOC: OLABP 10:49
PROVIDERS: ATTENDING PHYSICIAN Family Medicine
DX: D61.818 Other pancytopenia (principal); K92.2 Gastrointestinal hemorrhage, unspecified; D50.9 Iron deficiency anemia, unspecified; M62.81 Muscle weakness (generalized); E87.6 Hypokalemia; E83.42 Hypomagnesemia; N17.9 Acute kidney failure, unspecified; I95.1 Orthostatic hypotension; I50.30 Unspecified diastolic (congestive) heart failure; I11.0 Hypertensive heart disease with heart failure; I27.20 Pulmonary hypertension, unspecified; M34.89 Other systemic sclerosis; K21.9 Gastro-esophageal reflux disease without esophagitis
CPT/HCPCS: 36415; 80048; 83735; 85027

== ENCOUNTER → 2024-01-19 10:17 | Outpatient (REF) | payer OTHER, MEDICARE, SELFPAY ==
[2024-01-19 11:36] LABS: Hematocrit 25.5 % (37.0-47.0); Hemoglobin 8.6 g/dL (12.0-16.0); Mean Corp Hgb Conc. 33.7 g/dL (33.0-37.0); Mean Corpuscular Hgb 32.1 pg (27.0-31.0); Mean Corpuscular Volume 95.1 fL (81.0-99.0); Red Blood Cell Count 2.68 10^6/uL (4.20-5.40); Red Cell Dist. Width 23.9 % (11.5-14.5); White Blood Cell Count 6.3 10^3/uL (4.8-10.8)
[2024-01-19 11:46] LABS: Blood Urea Nitrogen 30 mg/dl (7-17); Calcium 8.9 mg/dl (8.4-10.2); Carbon Dioxide 37 mmol/L (22-30); Chloride 86 mmol/L (98-107); Glucose 88 mg/dl (70-99); Magnesium 1.6 mg/dl (1.6-2.3); Potassium 2.2 mmol/L (3.5-5.1); Sodium 136 mmol/L (135-145); eGFR > 60.00
[2024-01-19 12:35] LABS: % Basophils 0.3 % (0-2); % Eosinophils 0.3 % (0-6); % Immature Granulocytes 5.4 % (0-0.5); % Lymphocytes 5.9 % (20.5-51.1); % Monocytes 6.5 % (1.7-9.3); % Neutrophils 81.6 % (42.2-75.2); Absolute Immature Granulocytes 0.3 10^3/uL (0-0.05); Absolute Lymphocytes 0.4 10^3/uL (1.2-3.4); Absolute Monocytes 0.4 10^3/uL (0.1-0.6); Absolute Neutrophils 5.1 10^3/uL (1.4-6.5); Mean Platelet Volume 12.9 fL (7.4-10.4); Nucleated Red Blood Cells % 0.8 %; Platelet Count 53 10^3/uL (130-400)
== END ==
LOC: OLABP 10:17
PROVIDERS: ATTENDING PHYSICIAN Family Medicine
DX: D61.818 Other pancytopenia (principal); K92.2 Gastrointestinal hemorrhage, unspecified; D50.9 Iron deficiency anemia, unspecified; M62.81 Muscle weakness (generalized); E87.6 Hypokalemia; E83.42 Hypomagnesemia
CPT/HCPCS: 36415; 80048; 83735; 85025

== ENCOUNTER → 2024-01-21 10:57 | Outpatient (REF) | payer OTHER, MEDICARE, SELFPAY ==
[2024-01-21 12:58] LABS: Blood Urea Nitrogen 28 mg/dl (7-17); Calcium 9.1 mg/dl (8.4-10.2); Chloride 86 mmol/L (98-107); Glucose 100 mg/dl (70-99); Magnesium 2.2 mg/dl (1.6-2.3); Potassium 2.6 mmol/L (3.5-5.1); Sodium 133 mmol/L (135-145); eGFR > 60.00
[2024-01-21 13:06] LABS: Carbon Dioxide 36 mmol/L (22-30)
== END ==
LOC: OLABP 10:57
PROVIDERS: ATTENDING PHYSICIAN Family Medicine
DX: D61.818 Other pancytopenia (principal); K92.2 Gastrointestinal hemorrhage, unspecified; D50.9 Iron deficiency anemia, unspecified; M62.81 Muscle weakness (generalized); E87.6 Hypokalemia; E83.42 Hypomagnesemia; N17.9 Acute kidney failure, unspecified; I95.1 Orthostatic hypotension; I50.30 Unspecified diastolic (congestive) heart failure; I27.20 Pulmonary hypertension, unspecified; M34.89 Other systemic sclerosis; K21.9 Gastro-esophageal reflux disease without esophagitis
CPT/HCPCS: 36415; 80048; 83735

== ENCOUNTER → 2024-01-25 10:32 | Outpatient (REF) | payer OTHER, MEDICARE, SELFPAY ==
[2024-01-25 11:20] LABS: Blood Urea Nitrogen 27 mg/dl (7-17); Calcium 8.8 mg/dl (8.4-10.2); Carbon Dioxide 34 mmol/L (22-30); Chloride 92 mmol/L (98-107); Glucose 90 mg/dl (70-99); Potassium 4.2 mmol/L (3.5-5.1); Sodium 133 mmol/L (135-145); eGFR > 60.00
== END ==
LOC: OLABP 10:32
PROVIDERS: ATTENDING PHYSICIAN Family Medicine
DX: D61.818 Other pancytopenia (principal); K92.2 Gastrointestinal hemorrhage, unspecified; M62.81 Muscle weakness (generalized); E87.6 Hypokalemia; E83.42 Hypomagnesemia; N17.9 Acute kidney failure, unspecified; I95.1 Orthostatic hypotension; I50.30 Unspecified diastolic (congestive) heart failure; I27.20 Pulmonary hypertension, unspecified; M34.89 Other systemic sclerosis; K21.9 Gastro-esophageal reflux disease without esophagitis
CPT/HCPCS: 36415; 80048; 83735

== ENCOUNTER → 2024-01-28 10:14 | Outpatient (REF) | payer OTHER, MEDICARE, SELFPAY ==
[2024-01-28 12:21] LABS: Blood Urea Nitrogen 30 mg/dl (7-17); Calcium 8.9 mg/dl (8.4-10.2); Carbon Dioxide 39 mmol/L (22-30); Chloride 85 mmol/L (98-107); Glucose 91 mg/dl (70-99); Magnesium 2.3 mg/dl (1.6-2.3); Potassium 2.1 mmol/L (3.5-5.1); Sodium 132 mmol/L (135-145); eGFR > 60.00
== END ==
LOC: OLABP 10:14
PROVIDERS: ATTENDING PHYSICIAN Family Medicine
DX: D61.818 Other pancytopenia (principal); K92.2 Gastrointestinal hemorrhage, unspecified; D50.9 Iron deficiency anemia, unspecified; M62.81 Muscle weakness (generalized); E87.6 Hypokalemia; E83.42 Hypomagnesemia; N17.9 Acute kidney failure, unspecified; I95.1 Orthostatic hypotension; I50.30 Unspecified diastolic (congestive) heart failure; I27.20 Pulmonary hypertension, unspecified; I11.0 Hypertensive heart disease with heart failure
CPT/HCPCS: 36415; 80048; 83735

== ENCOUNTER 2024-01-28 17:41 | Inpatient (IN) | payer MEDICARE, OTHER, SELFPAY ==
[2024-01-28] VITALS (9 sets, daily range): BP systolic 76–108; BP diastolic 46–73; BMI 24.6; BMI 24.2
[2024-01-28 14:19] LABS: Urine Bilirubin Negative (Negative); Urine Character Bloody (Clear); Urine Color Red; Urine Glucose Negative (Negative); Urine Ketone Negative (Negative); Urine Urobilinogen Negative (Neg - 1+)
[2024-01-28 14:28] LABS: Hematocrit 25.7 % (37.0-47.0); Hemoglobin 8.3 g/dL (12.0-16.0); Mean Corp Hgb Conc. 32.3 g/dL (33.0-37.0); Mean Corpuscular Hgb 32.4 pg (27.0-31.0); Mean Corpuscular Volume 100.4 fL (81.0-99.0); Red Blood Cell Count 2.56 10^6/uL (4.20-5.40); Red Cell Dist. Width 24.8 % (11.5-14.5); White Blood Cell Count 7.1 10^3/uL (4.8-10.8)
[2024-01-28 14:53] LABS: ALT (SGPT) 24 U/L (0-35); AST (SGOT) 18 U/L (14-36); Albumin 3.7 g/dl (3.5-5.0); Alkaline Phosphatase 241 U/L (38-126); Blood Urea Nitrogen 31 mg/dl (7-17); Calcium 9.2 mg/dl (8.4-10.2); Carbon Dioxide 34 mmol/L (22-30); Chloride 84 mmol/L (98-107); Estimated Creatinine Clearance 47 ml/min; Glucose 172 mg/dl (70-99); Potassium 2.5 mmol/L (3.5-5.1); Sodium 130 mmol/L (135-145); Total Bilirubin 1.9 mg/dl (0.2-1.3); Total Protein 5.9 g/dl (6.3-8.2); eGFR > 60.00
--- NOTE | 2024-01-28 15:20 | ED.GENMED ---
History of Present Illness
General
Chief Complaint: Failure to Thrive
Source: patient and family (Daughter)
Exam Limitations: none
Time Seen by Provider: 01/28/24 15:11
History of Present Illness
History of Present Illness:
73-year-old female unsure why she is here. They did labs showed hypokalemia. She states she does not feel any different than her baseline. She feels generally weak but no acute change clinically as far as sudden chest pain shortness of breath
fever chills ache nausea vomiting etc. She is being worked up for anemia/thrombocytopenia.
Past History
Past History
ED Past Medical History: CHF, GERD, HTN, Hypercholesterolemia, Other (pulm htn) and Other (PE anemia. Thrombocytopenia.)
ED Past Surgical History: Gynecological, Orthopedic and Urological
Social History
Tobacco: Non-smoker
Alcohol: None
Drug: None
Personal:
Living: with family
Review of Systems
Review of Systems
All Other Systems: Not applicable
Constitutional: Reports fatigue; Denies fever or chills
Respiratory: Reports no symptoms
Cardiac: Reports no symptoms
Phy Exam
Physical Exam
Physical Exam:
GENERAL: Alert and oriented in no apparent distress. Chronically ill-appearing
EYE: Orbits normal.
NECK: Supple, no significant adenopathy.
ENT: Pharynx without erythema
CARDIAC: Regular rate and rhythm without any obvious murmurs.
LUNGS: Clear breath sounds, distant.
ABDOMEN: Soft, without focal tenderness or distention. Indwelling Savage
NEUROLOGICAL: Alert and oriented , grossly non-focal. Generally weak. Needed assistance sitting up.
SKIN: Warm and dry, areas of small discrete purpuric like rash on the lower extremities.
MUSCULOSKELETAL: Chronic appearing edema
PSYCH: Normal and appropriate interaction.
Course
Orders/Labs/Results
Orders:
Orders
01/28/24 13:41
EKG [Electrocardiogram (*1)] Stat
Reason for Study: Bradycardia / Tachycardia
01/28/24 13:42
EKG- Treatment ONCE
01/28/24 14:07
Complete Blood Count/With Diff Urgent
Comprehensive Metabolic Panel Urgent
Manual Differential Urgent
Urinalysis Urgent
Date Specimen was Collected: 01/28/24
Time Specimen was Collected: 14:05
Comment: ADD ON
Urine Microscopic Urgent
Date Specimen was Collected: 01/28/24
Time Specimen was Collected: 14:05
Comment: ADD ON
Urine Culture Urgent
EMILY Source: U
Specimen Description:
Date Specimen was Collected: 01/28/24
Time Specimen was Collected: 14:05
Comment: ADD ON
01/28/24 Dinner
Regular
At Your Request: Full Participation
01/28/24 15:19
Potassium Chloride 10% Elixir [KCl Elixir] 40 meq PO NOW STA
01/28/24 15:20
Midline IV As Directed
01/28/24 15:21
CXR Port [CR Chest Portable - 1 View] Urgent
Comment:
Reason For Exam: hypoxia/chf hx
Reason Study Needs to be Portable: Patient Unstable
01/28/24 15:48
Potassium Chloride [KCl] 40 meq 0.9% Sodium Chloride 250 ml [Nss] 250 ml IV NOW
01/28/24 15:54
Cefepime HCl [Maxipime] 2,000 mg IV NOW STA
01/28/24 17:09
Admit/Transfer Patient As Directed
Co-Sign Provider:
Level of Care: Inpatient admission
Assign to:: Telemetry
Physician / Group: elli mcdonald
Diagnosis: Hypokalemia
Reason for Telemetry: Other
Other Reason for Telemetry: Hypokalemia
Date to Stop Telemetry: 01/30/24
Time to Stop Telemetry: 11:00
Reason for Hospitalization: Hypokalemia
Expected length of stay greater than two midnights?: Yes
ELOS- Estimated Length of Stay in days: 2
I certify the patient meets the requirements for IP care: Yes
PRN Pain Medication Management As Directed
May give lesser potent ordered pain med per pt: Yes
preference::
Protocol:: Medication orders for pain may be administered in a
manner that supports deferring to patient preference
when the pt is:
- Requesting an ordered lesser potent pain medication.
Least to most potent pain medications are defined
as: acetaminophen < NSAID < tramadol < opioids
(morphine, oxycodone, hydromorphone).
- Requesting a lesser dose of the same medication IF
ORDERED.
- Requesting a less intrusive route of administration
if both routes are prescribed by the provider (PO <
IV).
01/28/24 17:12
Code Status As Directed
Resuscitation Status: Full Code
01/28/24 17:17
HEMATOLOGY CONSULT Routine
Consulting Provider: Maite Stone
Was physician already notified: Yes
Reason for consult: thrombocytopenia- Anemia
01/28/24 17:34
Blood Culture Q30M
EMILY Source: Blood/Venous
Specimen Description:
Blood Culture Q30M
EMILY Source: Blood/Venous
Specimen Description:
01/28/24 18:43
Acetaminophen [Tylenol] 650 mg PO Q4HPRN PRN
Atorvastatin [Lipitor] 10 mg PO QPM
Bisacodyl [Dulcolax] 10 mg RECTAL DAILYPRN PRN
Magnesium Hydroxide [Milk of Magnesia] 30 ml PO [id number] PRN
Phosphate Enema [Fleet Phosphate Enema-Adult] 118 ml RECTAL DAILYPRN PRN
Tramadol HCl [Ultram] 50 mg PO [id number] PRN
01/28/24 18:43
Urinalysis Reflex To Culture Routine
Activity As Directed
Activity Level: With Assistance
Venous Foot Pumps As Directed
Location: Bilateral feet
Vital Signs As Directed
Frequency: Per unit guidelines
DX Deep Vein Thrombosis Video Routine
01/28/24 19:03
Zinc Oxide 20% [Zinc Oxide Ointment] See Dose Instructions TOPICAL DAILYPRN PRN
01/28/24 20:00
Potassium Chloride Powder [Klor-Con] 40 meq PO BID
01/28/24 21:40
Basic Metabolic Panel Routine
01/28/24 22:00
CefTRIAXone [Rocephin] 1,000 mg IV Q24H
Metoprolol Xl [Toprol Xl] 12.5 mg PO HS
Sildenafil Citrate [Revatio] 20 mg PO TID
01/29/24 06:00
Complete Blood Count/No Diff IN AM
Comprehensive Metabolic Panel IN AM
Magnesium IN AM
01/29/24 08:00
Collagenase [Santyl Ointment] 1 applic TOPICAL DAILY
Furosemide [Lasix] 60 mg PO DAILY
Midodrine [ProAmatine] 10 mg PO TID @ 0800,1200,1700
Mirtazapine [Remeron] 7.5 mg PO HS
Pantoprazole [Protonix] 40 mg PO DAILY
Prednisone [Deltasone] 50 mg PO DAILY
Zinc Oxide 20% [Zinc Oxide Ointment] See Dose Instructions TOPICAL DAILY
01/30/24 11:00
DC Protocol for Telemetry ONCE
Abnormal Lab Results
01/28/24
14:07
RBC 2.56 L 10^6/uL
(4.20-5.40)
Hgb 8.3 L g/dL
(12.0-16.0)
Hct 25.7 L %
(37.0-47.0)
MCV 100.4 H fL
(81.0-99.0)
MCH 32.4 H pg
(27.0-31.0)
MCHC 32.3 L g/dL
(33.0-37.0)
RDW 24.8 H %
(11.5-14.5)
Plt Count 32 L 10^3/uL
(130-400)
MPV 11.6 H fL
(7.4-10.4)
Abs Neuts (Manual) 6.6 H 10^3/uL
(1.4-6.5)
Segmented Neutrophils 83 H %
(42-75)
Band Neutrophils 10 H %
(0-3)
Lymphocytes (Manual) 1 L %
(20-51)
Sodium 130 L mmol/L
(135-145)
Potassium 2.5 L* mmol/L
(3.5-5.1)
Chloride 84 L mmol/L
(98-107)
Carbon Dioxide 34 H mmol/L
(22-30)
BUN 31 H mg/dl
(7-17)
Glucose 172 H mg/dl
(70-99)
Total Bilirubin 1.9 H mg/dl
(0.2-1.3)
Alkaline Phosphatase 241 H U/L
(38-126)
Total Protein 5.9 L g/dl
(6.3-8.2)
Urine Occult Blood 4+ A
(Negative)
Ur Leukocyte Esterase 2+ A
(Negative)
Urine RBC >100 A /HPF
(0-2)
Urine WBC 60-70 A /HPF
(0-5)
Urine Bacteria Many A
(Negative)
Urine Albumin 3+ A
(Neg - Trace)
01/28/24 14:07
01/28/24 14:07
Vital Signs
Initial and Last Documented VS:
Initial Vital Signs
Temp Pulse BP
97.6 F 119 97/54
01/28/24 13:45 01/28/24 13:45 01/28/24 13:45
Last Documented Vital Signs
Temp Pulse Resp BP Pulse Ox
97.2 F 113 18 108/73 97
01/28/24 19:00 01/28/24 19:00 01/28/24 19:00 01/28/24 19:00 01/28/24 19:00
MDM/Problems Addressed
Differential Diagnosis Includes:
Patient sent for hypokalemia primarily. She has been having issues with anemia/thrombocytopenia. She states clinically she feels at baseline. She is hypotensive with a blood pressure around the 100 but that is normal for her. Workup in progress.
Will start replacing potassium. Clearly needs admission for the hypokalemia alone.
*EKG
Interpreted by ED Provider?: Yes
Interpretation: abnormal
Comparison EKG: changes noted
Heart Rate: 112
Rate: tachycardiac
Rhythm: sinus and PVC's
[place]: normal axis
Interval: normal interval
QRS Pattern: normal QRS
Ischemia: non-specific ST changes
*Vortex Operator Interpretation
Rate: tachycardiac
Interpretation: abnormal
Heart Rate: 110
Rhythm: sinus
*Critical Care Note
Total Time (30-74mins, 75-104mins- exclusive of procedures): Not Applicable
Data Reviewed
Review of Other/Old Records Reveals: Labs, Records, Radiology Studies and Testing
Update Note
Update Note:
Patient with significant hypokalemia. Will be admitted for this reason primarily. Also may have a UTI positive urine but indwelling Savage but some bandemia. Will cover with antibiotics. Anemia and thrombocytopenia have been ongoing and will need
further evaluation.
ED Attending Note
-
Portions of this chart may have been created with voice recognition software.� Occasional wrong word or��sound alike� substitutions may have occurred due to the inherent limitations of voice recognition software.
Discharge Plan
Departure
Patient Disposition: Admit
Date of Disposition: 01/28/24
Time of Disposition: 15:55
Admit to: Telemetry
Presentation/result/management discussed w/ accepting MD/DO: Hospitalist
Discharge Problem:
Severe hypokalemia, Anemia/thrombocytopenia, Possible UTI/indwelling Savage
Interventions
Interventions:
*Risk Screen - Suicide Last Done: 01/28/24 13:53
*General Assessment Last Done: 01/28/24 13:53
*Neglect/Abuse Screening Last Done: 01/28/24 13:53
*ED COVID-19 Vaccine History Last Done: 01/28/24 13:53
*Nursing Disposition Last Done: 01/28/24 18:46
Discharge Date and Time
Discharge Date/Time: 01/28/24 18:47
[2024-01-28 15:29] LABS: Mean Platelet Volume 11.6 fL (7.4-10.4); Platelet Count 32 10^3/uL (130-400)
[2024-01-28] MEDS: KCL ELIXIR 40 MEQ PO (15:33)
[2024-01-28 15:34] LABS: Lymphocytes 1 % (20-51); Monocytes 6 % (2-9); Segmented Neutrophils 83 % (42-75)
[2024-01-28 15:37] LABS: Absolute Neutrophils -Man Diff 6.6 10^3/uL (1.4-6.5); Band Neutrophils 10 % (0-3); Platelets Checked YES
[2024-01-28 15:39] LABS: Total Cells Counted 100
[2024-01-28] MEDS: MAXIPIME 2000 MG IV (16:08)
[2024-01-28] MEDS: KCL 270 MEQ IV (16:13)
--- NOTE | 2024-01-28 17:17 | HPS.HSE ---
Family Physician
-
Family Physician: Venkat Taveras MD
Chief Complaint
-
Syncope
History of Present Illness
Patient is 73 years old with history of CHF, GERD, HTN, Hypercholesterolemia, thrombocytopenia, pulmonary hypertension, GI bleeding who came to the ER today from half-way after syncopal event while doing physical therapy.
Patient herself cannot provide history but history was taken from son and daughter at bedside.
Staff called family saying that the patient lost her consciousness for 1 to 2 seconds.
Blood work shows severe hypokalemia at 2.5.
Discussed with family at bedside, patient with history of thrombocytopenia, anemia, supposed to see her edger operator Dr. Baldwin on 02/03 to discuss bone marrow biopsy, family asked if patient can be seen by oncology during this hospitalization.
Patient denies chest pain or shortness of breath but otherwise, provide rest of review of system.
Urinalysis shows evidence of UTI, patient received cefepime.
Patient received IV potassium.
Patient will be admitted under hospitalist
Medical History
Past Medical History
Past Medical History: Reports CHF, GERD and Other (Anemia, thrombocytopenia,, hypertension, GI bleeding)
Past Surgical History: Reports Other (: Gynecological, Orthopedic and Urological)
Social History
Unable to obtain full social history at this time due to: Dementia
Alcohol: None
Living: [facility]
Family History
Family History: Not pertinent
Allergies / Home Medications
Allergies reflects when Allergies were last updated in [email or web address].
Home Medications with original date entered in [email or web address]
Allergy/Medication List:
Allergies
Allergy/AdvReac Type Severity Reaction Status Date / Time
No Known Allergies Allergy Verified 07/12/23 12:25
Home Medications
sildenafil (pulm.hypertension) 20 mg tablet 20 mg PO TID pulmonary hypertension 05/24/23
azelastine 137 mcg (0.1 %) nasal spray 1 spray intranasal BID Allergies 12/01/23
collagenase clostridium histo. 250 unit/gram topical ointment (Santyl) 1 applic topical DAILY sacral wound 12/01/23
prednisone 50 mg tablet 50 mg PO DAILY Autoimmune disorder 12/01/23
acetaminophen 325 mg tablet 650 mg PO Q4HPRN PRN mild pain/ fever 01/04/24
atorvastatin 10 mg tablet 10 mg PO QPM High cholesterol 01/04/24
bisacodyl 10 mg rectal suppository 10 mg MO DAILYPRN PRN day 5 no bm 01/04/24
magnesium hydroxide 400 mg/5 mL oral suspension (Milk of Magnesia) 30 ml PO [id number] PRN no bm in 3 days 01/04/24
metoprolol succinate 25 mg tablet,extended release 24 hr 12.5 mg PO HS Blood Pressure 01/04/24
sodium phosphates 19 gram-7 gram/118 mL enema (Fleet Enema) 118 ml MO DAILYPRN PRN day 6 no bm 01/04/24
tramadol 50 mg tablet 50 mg PO [id number] PRN severe pain 01/04/24
zinc oxide 20 % topical paste 1 ea topical DAILY sacral wound 01/04/24
zinc oxide 20 % topical paste 1 ea topical DAILYPRN PRN buttocks soilage/dislodgement 01/04/24
furosemide 40 mg tablet 60 mg (1.5 x 40 mg) PO DAILY #45 tabs 01/11/24
midodrine 10 mg tablet 10 mg PO TID 01/28/24
mirtazapine 15 mg tablet 7.5 mg PO DAILY 01/28/24
pantoprazole 40 mg tablet,delayed release 40 mg PO DAILY 01/28/24
potassium chloride 20 mEq oral packet 40 meq PO BID 01/28/24
Review of Systems
-
Unable to obtain full review of systems at this time due to: Dementia
History Source: Family and Physician
Physical Exam
Vital Signs
Vital Signs
Temp Pulse Resp BP
97.6 F 109 21 90/64
01/28/24 13:45 01/28/24 17:00 01/28/24 17:00 01/28/24 17:00
Physical Exam
General: Appears Chronically Ill and Other (More face)
HEENT: NormoCephalic, Moist mucous membranes, Atraumatic and PERRLA
Respiratory: Rales and Rhonchi
Cardiac: S1/S2 and Tachycardia
Breast: Deferred by me
GI: Soft, Non Tender, Non Distended and Normal Bowel Sounds
Genito-urinary: Deferred by me
Musculoskeletal: Edema, Left Lower Extremity, Edema, Right Lower Extremity and No Edema
Skin: Warm; No Rash, Jaundice, Ulcers, Lesions or Decubitus Ulcers
Neuro: Awake, Alert, Oriented, AO x 3, No Motor Deficits, Nonfocal/grossly intact and Cranial Nerves Intact
Hematologic/Lymphatic: No Lymphadenopathy
Psych: Calm
Laboratory Results
-
01/28/24 14:07
01/28/24 14:07
Laboratory Results
Total Bilirubin 1.9 mg/dl (0.2-1.3) H 01/28/24 14:07
AST 18 U/L (14-36) 01/28/24 14:07
ALT 24 U/L (0-35) 01/28/24 14:07
Alkaline Phosphatase 241 U/L (38-126) H 01/28/24 14:07
Data Reviewed
-
Diagnostic Radiology: Report Reviewed by me
CT Scan: Report Reviewed by me
Ultrasound: Report Reviewed by me
Lab Data: Labs Reviewed by me and Discussed with Physician
Old Records: Reviewed
Impression/Plan
-
IMPRESSION:
73 years old who came with syncopal event at half-way found to have severe hypokalemia and concern of UTI.
Assessment/plan:
Severe sepsis with acute organ dysfunction secondary to UTI
Patient meets sepsis criteria on admission
Heart rate 115
Bands 10%
Respiratory rate 22
Source of infection is UTI
IV antibiotic in form of cefepime in the ER, will continue Rocephin started
Blood culture pending
Urine culture pending.
UTI associated with chronic catheter use.
Syncope
Possible secondary to hypokalemia and orthostatic hypotension
Check orthostatic
night monitor
Severe hypokalemia
Received IV potassium in the ER.
Continue to monitor tonight.
Daily BMP
Chronic diastolic CHF.
Continue Lasix- BB
History of hypertension/currently hypotensive.
Patient tachycardic, continue metoprolol, continue home midodrine
Thrombocytopenia/anemia.
Supposed to follow-up with Dr. Baldwin on 02/04/2024
Consult oncology.
Infrarenal IVC filter thrombosis
- History of bilateral pulmonary embolism
- Not on anticoagulation- high risk bleed
- Filter placed around 2009.
Scleroderma/SLE
- cont home dose steroids
CODE STATUS: Full code
DVT prophylaxis: SCDs
Diet: Regular diet
Family communication: Discussed with daughter and son at bedside.
[2024-01-28 19:11] LABS: Urine Albumin 3+ (Neg - Trace); Urine Leukocyte 2+ (Negative); Urine Nitrite Negative (Negative); Urine Occult Blood 4+ (Negative)
[2024-01-28 19:28] LABS: Urine Squamous Cell 0-2 /LPF (Few)
[2024-01-28 19:29] LABS: Urine Bacteria Many (Negative); Urine Red Blood Cell >100 /HPF (0-2); Urine White Cell 60-70 /HPF (0-5)
[2024-01-28] MEDS: LIPITOR 10 MG PO (21:14)
[2024-01-28] MEDS: KLOR-CON 40 MEQ PO (21:15)
[2024-01-28] MEDS: REVATIO 20 MG PO (22:26)
[2024-01-28] MEDS: ROCEPHIN 1000 MG IV (22:27)
[2024-01-28] MEDS: STERILE WATER FOR INJECTION 10 ML IV (22:27)
[2024-01-28] MEDS: TOPROL XL PO (22:45)
[2024-01-28 23:22] LABS: Urine Albumin 2+ (Neg - Trace); Urine Bilirubin Negative (Negative); Urine Character Slightly Cloudy (Clear); Urine Glucose Negative (Negative); Urine Ketone Negative (Negative); Urine Leukocyte 2+ (Negative); Urine Nitrite Positive (Negative); Urine Occult Blood 4+ (Negative); Urine Urobilinogen Negative (Neg - 1+)
[2024-01-28 23:26] LABS: Urine Color Red
[2024-01-28 23:46] LABS: Urine Amorphous Seen; Urine Bacteria Many (Negative); Urine Red Blood Cell >100 /HPF (0-2); Urine Squamous Cell >30 /LPF (Few); Urine Urothelial Cell >30 /LPF (FEW); Urine White Cell >100 /HPF (0-5)
[2024-01-28 23:49] LABS: Urine Yeast Many (Negative)
[2024-01-29 00:09] LABS: Blood Urea Nitrogen 33 mg/dl (7-17); Carbon Dioxide 32 mmol/L (22-30); Chloride 90 mmol/L (98-107); Estimated Creatinine Clearance 43 ml/min; Glucose 152 mg/dl (70-99); Potassium 5.8 mmol/L (3.5-5.1); Sodium 131 mmol/L (135-145); eGFR > 60.00
[2024-01-29 03:30] VITALS: BP 118/72
[2024-01-29 06:00] VITALS: BMI 23.6
[2024-01-29 07:00] VITALS: BP 108/71
[2024-01-29 07:12] LABS: Hematocrit 22.5 % (37.0-47.0); Hemoglobin 7.1 g/dL (12.0-16.0); Mean Corp Hgb Conc. 31.6 g/dL (33.0-37.0); Mean Corpuscular Hgb 32.4 pg (27.0-31.0); Mean Corpuscular Volume 102.7 fL (81.0-99.0); Platelet Count 25 10^3/uL (130-400); Red Blood Cell Count 2.19 10^6/uL (4.20-5.40); Red Cell Dist. Width 25.5 % (11.5-14.5); White Blood Cell Count 7.9 10^3/uL (4.8-10.8)
[2024-01-29 07:37] LABS: ALT (SGPT) 19 U/L (0-35); AST (SGOT) 14 U/L (14-36); Albumin 3.4 g/dl (3.5-5.0); Alkaline Phosphatase 204 U/L (38-126); Blood Urea Nitrogen 35 mg/dl (7-17); Calcium 9.1 mg/dl (8.4-10.2); Carbon Dioxide 28 mmol/L (22-30); Chloride 92 mmol/L (98-107); Estimated Creatinine Clearance 39 ml/min; Glucose 97 mg/dl (70-99); Magnesium 2.2 mg/dl (1.6-2.3); Potassium 5.2 mmol/L (3.5-5.1); Sodium 134 mmol/L (135-145); Total Bilirubin 1.4 mg/dl (0.2-1.3); Total Protein 5.6 g/dl (6.3-8.2); eGFR 53.72
--- NOTE | 2024-01-29 08:48 | W.PN.HOSP.TC ---
Today's Communication/Plan
-
see bold
Assessment / Plan
Assessment / Plan
HPI: 73 years old who came with syncopal event at [place] [facility] found to have severe hypokalemia and concern of UTI.
Assessment/plan:
-Severe sepsis with acute organ dysfunction secondary to UTI
-Catheter associated urinary tract infection
-Acute toxic metabolic encephalopathy
Patient meets sepsis criteria on admission. Heart rate 115, Bands 10%
Status post cefepime in the ER, continue Rocephin
-Syncope
Possible secondary to hypokalemia and orthostatic hypotension
Check orthostatic VS
-Severe hypokalemia
Continue to replete, recheck a.m. labs. Magnesium normal
-Chronic diastolic CHF.
Hold Lasix due to hypotension
-History of hypertension/currently hypotensive.
Hold metoprolol secondary to hypotension
Continue home midodrine
-Thrombocytopenia/anemia.
Supposed to follow-up with Dr. Baldwin on 02/04/2024
Appreciate oncology input, transfuse for Hgb <7.0 as needed
Plan for bone marrow biopsy outpatient upon discharge
Infrarenal IVC filter thrombosis
- History of bilateral pulmonary embolism
- Not on anticoagulation- high risk bleed
- Filter placed around 2009.
Scleroderma/SLE
- Cont home dose steroids
DVT prophylaxis�SCDs secondary to thrombocytopenia
Updated son on phone
Total time spent to see the patient on the floor, examine the patient, review data and lab results, discuss treatment plan with patient, nursing staff around 51 minutes.
Physical Exam
General: No acute distress
HEENT: Normocephalic, Atraumatic, EOMI, MMM
Respiratory: Clear to Auscultation bilaterally
Cardiac: Normal S1/S2, Regular Rate and Rhythm
GI: Soft, Nontender, Nondistended, Normal Bowel Sounds
: +chronic patel
Extremities: No Clubbing, Cyanosis, or Edema
Neuro: Pleasantly confused
Psych: Calm, Cooperative
Derm: No Visible lesions
Anticipated Discharge: > 48 hours
Subjective/Interval History
-
Date of Service: January 29, 2024
Patient confused. She has a chronic Patel. Denies dysuria, no nausea, no vomiting. No fever.
Objective Data
-
Labs:
Laboratory Results
01/28/24 01/29/24
23:43 06:06
WBC 7.9
Hgb 7.1 L
Hct 22.5 L
Plt Count 25 L* D
Sodium 131 L 134 L
Potassium 5.8 H D 5.2 H
Chloride 90 L 92 L
Carbon Dioxide 32 H 28
BUN 33 H 35 H
Creatinine 1.0 1.1 H
Glucose 152 H 97
Calcium 9.0 9.1
Total Bilirubin 1.4 H
AST 14
ALT 19
Alkaline Phosphatase 204 H
Vital Signs:
Vital Signs
Temp Pulse Resp BP Pulse Ox
97.5 F 99 18 118/72 94
01/29/24 03:30 01/29/24 03:30 01/29/24 03:30 01/29/24 03:30 01/29/24 03:30
I&O
01/28/24 01/29/24 01/30/24
06:59 06:59 06:59
Intake Total 480 / 480
Output Total 600 / 600
Balance -120 / -120
[2024-01-29] MEDS: SANTYL OINTMENT 1 APPLIC TOPICAL (09:40)
[2024-01-29] MEDS: LASIX 60 MG PO (09:41)
[2024-01-29] MEDS: ProAmatine 10 MG PO ×3 (09:41→16:57)
[2024-01-29] MEDS: DELTASONE 50 MG PO (09:41)
[2024-01-29] MEDS: REVATIO 20 MG PO ×3 (09:41→22:25)
[2024-01-29] MEDS: REMERON 7.5 MG PO ×2 (09:41→22:25)
[2024-01-29] MEDS: KLOR-CON 40 MEQ PO ×2 (09:41→21:00)
[2024-01-29] MEDS: ZINC OXIDE OINTMENT 1 APPLIC TOPICAL (09:42)
[2024-01-29] MEDS: PROTONIX 40 MG PO (09:42)
--- NOTE | 2024-01-29 10:47 | CON.ONC ---
Impression
Impression
anemia, thrombocytopenia
syncope
hypokalemia
?dementia
Plan
Plan
Will check iron studies, B12/folate, which were normal when checked in summer 2023
Would transfuse if further drop in hgb
FOBT likely unreliable in the setting of thrombocytopenia; watch for any signs of GI bleeding
Will arrange BM biopsy as outpatient as soon as she's discharged
Patient History
History of Present Illness
This is a 73yo with CHF, GERD, lupus/scleroderma, recent hip fracture, hypertension, hypercholesterolemia, pulmonary hypertension, and GI bleeding, who was sent to the emergency room from her [place] [facility] after syncopal event while doing physical
therapy. She reportedly lost consciousness for 1 to 2 seconds. Blood work showed severe hypokalemia with potassium of 2.5.
Recent medical history is noted for thrombocytopenia and anemia. We've seen her during previous admissions, cytopenias were thought possibly due to medications, chronic illness, etc, though BM biopsy has been discussed. No evidence for myeloma, or
substrate deficiency when checked over the summer. Peripheral blood flow cytometry was unremarkable in November 2023. No evidence for hemolysis in 11/2023. She was scheduled to see Dr. aBldwin as an outpatient February 03 to consider bone marrow
biopsy.
She offers no complaints at this time, unable to provide significant history.
Past-Medical/Surgical History
as per the hpi
Patient Medication
�Medication �Instructions �Recorded �Confirmed �Last Taken �Type
sildenafil (pulm.hypertension) 20 20 mg PO TID pulmonary hypertension 05/24/23 01/28/24 08/13/23 History
mg tablet
azelastine 137 mcg (0.1 %) nasal 1 spray intranasal BID Allergies 12/01/23 01/28/24 Unknown History
spray
collagenase clostridium histo. 250 1 applic topical DAILY sacral wound 12/01/23 01/28/24 Unknown History
unit/gram topical ointment (Santyl)
prednisone 50 mg tablet 50 mg PO DAILY Autoimmune disorder 12/01/23 01/28/24 Unknown History
acetaminophen 325 mg tablet 650 mg PO Q4HPRN PRN mild pain/ 01/04/24 01/28/24 Unknown History
fever
atorvastatin 10 mg tablet 10 mg PO QPM High cholesterol 01/04/24 01/28/24 Unknown History
bisacodyl 10 mg rectal suppository 10 mg MT DAILYPRN PRN day 5 no bm 01/04/24 01/28/24 Unknown History
magnesium hydroxide 400 mg/5 mL 30 ml PO [id number] PRN no bm in 3 01/04/24 01/28/24 Unknown History
oral suspension (Milk of Magnesia) days
metoprolol succinate 25 mg 12.5 mg PO HS Blood Pressure 01/04/24 01/28/24 Unknown History
tablet,extended release 24 hr
sodium phosphates 19 gram-7 118 ml MT DAILYPRN PRN day 6 no bm 01/04/24 01/28/24 Unknown History
gram/118 mL enema (Fleet Enema)
tramadol 50 mg tablet 50 mg PO [id number] PRN severe pain 01/04/24 01/28/24 Unknown History
zinc oxide 20 % topical paste 1 ea topical DAILY sacral wound 01/04/24 01/28/24 Unknown History
zinc oxide 20 % topical paste 1 ea topical DAILYPRN PRN buttocks 01/04/24 01/28/24 Unknown History
soilage/dislodgement
furosemide 40 mg tablet 60 mg (1.5 x 40 mg) PO DAILY #45 01/11/24 01/28/24 Unknown Rx
tabs
midodrine 10 mg tablet 10 mg PO TID 01/28/24 01/28/24 Unknown History
mirtazapine 15 mg tablet 7.5 mg PO DAILY 01/28/24 01/28/24 Unknown History
pantoprazole 40 mg tablet,delayed 40 mg PO DAILY 01/28/24 01/28/24 Unknown History
release
potassium chloride 20 mEq oral 40 meq PO BID 12/06/24 12/06/24 Unknown History
packet
Active Medications
Generic Name Dose Route Start Last Admin
Trade Name Freq PRN Reason Stop Dose Admin
Acetaminophen 650 mg 01/28/24 18:43
Acetaminophen 325 Mg Tablet PO 02/25/24 18:42
Q4HPRN PRN
mild pain/ fever
Atorvastatin Calcium 10 mg 01/28/24 18:43 01/28/24 21:14
Atorvastatin (Lipitor) 10 Mg Tablet PO 02/25/24 18:42 10 mg
QPM ELIZABETH Administration
Bisacodyl 10 mg 01/28/24 18:43
Bisacodyl 10 Mg Rectal Suppository RECTAL 02/25/24 18:42
DAILYPRN PRN
day 5 no bm
Ceftriaxone Sodium 1,000 mg 01/28/24 22:00 01/28/24 22:27
Ceftriaxone 1000 Mg / 10 Ml Vial IV 1,000 mg
Q24H ELIZABETH Administration
Collagenase 1 applic 01/29/24 08:00 01/29/24 09:40
Collagenase Ointment 2.5 Gram Jar TOPICAL 02/26/24 07:59 1 applic
DAILY ELIZABETH Administration
Furosemide 60 mg 01/29/24 08:00 01/29/24 09:41
Furosemide 20 Mg Tablet PO 02/26/24 07:59 60 mg
DAILY ELIZABETH Administration
Magnesium Hydroxide 30 ml 01/28/24 18:43
Milk Of Magnesia 30 Ml Cup PO 02/25/24 18:42
[id number] PRN
no bm in 3 days
Metoprolol Succinate 12.5 mg 01/28/24 22:00 01/28/24 22:45
Metoprolol 12.5 Mg Extended Release Dose (1/2 Of 25 Mg Xl Tablet) PO 02/25/24 21:59 Not Given
HS ELIZABETH
Midodrine 10 mg 01/29/24 08:00 01/29/24 09:41
Midodrine 5 Mg Tablet PO 02/26/24 07:59 10 mg
TID @ 0800,1200,1700 ELIZABETH Administration
Mirtazapine 7.5 mg 01/29/24 08:00 01/29/24 09:41
Mirtazapine 7.5 Mg Regular Release Tablet PO 02/26/24 07:59 7.5 mg
HS ELIZABETH Administration
Pantoprazole Sodium 40 mg 01/29/24 08:00 01/29/24 09:42
Pantoprazole 40 Mg Delayed Release Tablet PO 02/26/24 07:59 40 mg
DAILY ELIZABETH Administration
Potassium Chloride 40 meq 01/28/24 20:00 01/29/24 09:41
Potassium Chloride 20 Meq Powder Packet PO 02/25/24 19:59 40 meq
BID ELIZABETH Administration
Prednisone 50 mg 01/29/24 08:00 01/29/24 09:41
Prednisone 50 Mg Tablet PO 02/26/24 07:59 50 mg
DAILY ELIZABETH Administration
Sildenafil Citrate 20 mg 01/28/24 22:00 01/29/24 09:41
Sildenafil 20 Mg Tablet PO 02/25/24 21:59 20 mg
TID ELIZABETH Administration
Sodium Biphosphate/Sodium Phosphate 118 ml 01/28/24 18:43
Fleet Phosphate Enema (Adult) 135 Ml Bottle RECTAL 02/25/24 18:42
DAILYPRN PRN
day 6 no bm
Sodium Chloride 0 flush 01/28/24 19:00
Sodium Chloride 0.9% (Flush) Syringe IV 02/25/24 18:59
PER PROTOCOL ELIZABETH
Sterile Water 10 ml 01/28/24 22:00 01/28/24 22:27
Sterile Water For Injection 10 Ml Vial IV 02/25/24 21:59 10 ml
Q24H ELIZABETH Administration
Tramadol HCl 50 mg 01/28/24 18:43
Tramadol Hcl 50 Mg Tablet PO 02/25/24 18:42
[id number] PRN
severe pain
Zinc Oxide 0 applic 01/28/24 19:03
Zinc Oxide 20% (Ointment) 30 Gram Tube TOPICAL 02/25/24 19:02
DAILYPRN PRN
buttocks soilage/dislodgement
Zinc Oxide 0 applic 01/29/24 08:00 01/29/24 09:42
Zinc Oxide 20% (Ointment) 30 Gram Tube TOPICAL 02/26/24 07:59 1 applic
DAILY ELIZABETH Administration
Review of Systems
-
All Other Systems: Not reviewed unless documented
Physical Exam
-
General: Negative Conversant
HEENT: Negative Jaundice
Skin: Warm and Dry; Negative No Ecchymosis
Psych: Negative Intact Judgement/Insight
Labs
Lab Results
WBC 7.9 10^3/uL (4.8-10.8) 01/29/24 06:06
RBC 2.19 10^6/uL (4.20-5.40) L 01/29/24 06:06
Hgb 7.1 g/dL (12.0-16.0) L 01/29/24 06:06
Hct 22.5 % (37.0-47.0) L 01/29/24 06:06
MCV 102.7 fL (81.0-99.0) H 01/29/24 06:06
MCH 32.4 pg (27.0-31.0) H 01/29/24 06:06
MCHC 31.6 g/dL (33.0-37.0) L 01/29/24 06:06
RDW 25.5 % (11.5-14.5) H 01/29/24 06:06
Plt Count 25 10^3/uL (130-400) L* D 01/29/24 06:06
MPV Not Reportable 01/29/24 06:06
Creatinine 1.1 mg/dL (0.6-1.0) H 01/29/24 06:06
Vital Signs
Vital Signs
Temp Pulse Resp BP Pulse Ox
97.5 F 104 20 108/71 98
01/29/24 07:00 01/29/24 07:00 01/29/24 07:00 01/29/24 07:00 01/29/24 07:00
[2024-01-29 11:00] VITALS: BP 113/75
[2024-01-29 13:41] LABS: Iron 97 ug/dl (37-170)
[2024-01-29 13:50] LABS: Percent Saturation 40 % (20-50); Total Iron Binding Capacity 240 ug/dl (265-497)
--- NOTE | 2024-01-29 14:52 | CM ---
Initial assessment completed with pt at bedside, followed up with call to son/POA
Pt has poor cognition and per son, has had recent decline. Son requests all communication to be thru him vs pt who can get anxious or forget information.
Pt has had 6 hospital stays this year. This current hospital admission is from [facility] with UTI/syncope/hypokalemia.
Pt was discharged to [facility] in December for rehab. Per son, pt is wheelchair bound and is receiving aide with all mobility and ADLs
Son notes that pt will be supervisor intermediates, and that he would like to try for admission to [facility] under Medicare and then switch to jail. Also accepting of referral back to [facility] but did not hold the bed.
PLAN; SNF/supervisor intermediates
[2024-01-29 15:00] VITALS: BP 121/73
[2024-01-29 15:26] LABS: Folate 15.9 ng/ml (2.76-20); Vitamin B12 929 pg/ml (239-931)
[2024-01-29] MEDS: LIPITOR 10 MG PO (16:57)
[2024-01-29 19:30] VITALS: BP 94/63
[2024-01-29] MEDS: TOPROL XL PO (22:24)
[2024-01-29] MEDS: STERILE WATER FOR INJECTION 10 ML IV (22:25)
[2024-01-29] MEDS: ROCEPHIN 1000 MG IV (22:25)
[2024-01-29 23:30] VITALS: BP 115/62
[2024-01-30] VITALS (9 sets, daily range): BP systolic 100–130; BP diastolic 57–86; BMI 24.5
[2024-01-30] MEDS: TYLENOL 650 MG PO ×2 (00:57→16:15)
--- NOTE | 2024-01-30 07:49 | W.PN.HOSP.TC ---
Addendum entered and electronically signed by Lincoln Vallejo MD 01/30/24 14:20:
#Hyponatremia
Check urine studies, TSH, a.m. cortisol
Fluid restrict, trend Na
-Subacute confusion suspicious for dementia
-Acute toxic metabolic encephalopathy ruled out
01/04/[address] evidence for acute intracranial hemorrhage or transcortical infarct.
2. Moderate white matter leukoaraiosis in both cerebral hemispheres.
3. Moderate bilateral parietal lobe volume loss.
Present for 2.5 months, now worsened per son
Initially thought due to UTI
Check B12, TSH
Original Note:
Today's Communication/Plan
-
Transfuse 1 unit packed red blood cells today
Assessment / Plan
Assessment / Plan
HPI: 73 years old who came with syncopal event at correction found to have severe hypokalemia and concern of UTI.
Assessment/plan:
-Severe sepsis with acute organ dysfunction secondary to UTI
-Catheter associated urinary tract infection
Patient meets sepsis criteria on admission. Heart rate 115, Bands 10%
Initial urine culture growing out Klebsiella and Proteus sensitive to Rocephin, repeat urine culture after Patel change shows normal mark
Status post cefepime in the ER, currently on Rocephin
Unclear if she actually has a UTI, consult ID
-Acute toxic metabolic encephalopathy
Initially thought due to UTI
Check B12, TSH
-Syncope
Possible secondary to hypokalemia and orthostatic hypotension
Check orthostatic VS
-Severe hypokalemia
Repleted and resolved. Magnesium normal
-Chronic diastolic CHF.
Hold Lasix due to hypotension
-History of hypertension/currently hypotensive.
Continue home midodrine
-Thrombocytopenia/anemia.
Supposed to follow-up with Dr. Baldwin on 02/04/2024
Appreciate oncology input, transfuse for Hgb <7.0 as needed
Transfuse 1 unit packed red blood cells today for hemoglobin 6.7
Plan for bone marrow biopsy outpatient upon discharge
Infrarenal IVC filter thrombosis
- History of bilateral pulmonary embolism
- Not on anticoagulation- high risk bleed
- Filter placed around 2009.
Scleroderma/SLE
- Cont home dose steroids
DVT prophylaxis�SCDs secondary to thrombocytopenia
Updated son Juan on phone 01/29
Total time spent to see the patient on the floor, examine the patient, review data and lab results, discuss treatment plan with patient, nursing staff around 50 minutes.
Physical Exam
General: No acute distress
HEENT: Normocephalic, Atraumatic, EOMI, MMM
Respiratory: Clear to Auscultation bilaterally
Cardiac: Normal S1/S2, Regular Rate and Rhythm
GI: Soft, Nontender, Nondistended, Normal Bowel Sounds
: +chronic patel
Extremities: No Clubbing, Cyanosis, or Edema
Neuro: Pleasantly confused
Psych: Calm, Cooperative
Derm: No Visible lesions
Anticipated Discharge: > 48 hours
Subjective/Interval History
-
Date of Service: January 30, 2024
Patient denies shortness of breath, denies nausea, denies vomiting. No chest pain, no dysuria. No fever.
Objective Data
-
Labs:
Laboratory Results
01/30/24
06:50
WBC Pending
Hgb Pending
Hct Pending
Plt Count Pending
Sodium Pending
Potassium Pending
Chloride Pending
Carbon Dioxide Pending
BUN Pending
Creatinine Pending
Glucose Pending
Calcium Pending
Vital Signs:
Vital Signs
Temp Pulse Resp BP Pulse Ox
98.4 F 100 18 110/63 96
01/30/24 03:47 01/30/24 03:47 01/30/24 03:47 01/30/24 03:47 01/30/24 03:47
I&O
01/29/24 01/30/24 01/31/24
06:59 06:59 06:59
Intake Total 480 / 480 480 / 480
Output Total 600 / 600 100 / 100
Balance -120 / -120 380 / 380
[2024-01-30] MEDS: ProAmatine 10 MG PO ×2 (08:14→11:36)
[2024-01-30] MEDS: DELTASONE 50 MG PO (08:14)
[2024-01-30] MEDS: KLOR-CON 40 MEQ PO ×2 (08:14→21:00)
[2024-01-30] MEDS: PROTONIX 40 MG PO (08:15)
[2024-01-30] MEDS: SANTYL OINTMENT 1 APPLIC TOPICAL (08:15)
[2024-01-30] MEDS: REVATIO 20 MG PO ×3 (08:15→21:59)
[2024-01-30] MEDS: ZINC OXIDE OINTMENT 1 APPLIC TOPICAL (08:16)
[2024-01-30 08:28] LABS: Blood Urea Nitrogen 34 mg/dl (7-17); Calcium 9.2 mg/dl (8.4-10.2); Carbon Dioxide 29 mmol/L (22-30); Chloride 91 mmol/L (98-107); Estimated Creatinine Clearance 47 ml/min; Glucose 82 mg/dl (70-99); Potassium 4.6 mmol/L (3.5-5.1); Sodium 129 mmol/L (135-145); eGFR > 60.00
[2024-01-30 09:19] LABS: Hematocrit 21.1 % (37.0-47.0); Hemoglobin 6.7 g/dL (12.0-16.0); Mean Corp Hgb Conc. 31.8 g/dL (33.0-37.0); Mean Corpuscular Hgb 32.7 pg (27.0-31.0); Mean Corpuscular Volume 102.9 fL (81.0-99.0); Platelet Count 14 10^3/uL (130-400); Red Blood Cell Count 2.05 10^6/uL (4.20-5.40); Red Cell Dist. Width 25.2 % (11.5-14.5); White Blood Cell Count 6.7 10^3/uL (4.8-10.8)
[2024-01-30 12:08] LABS: Hemoglobin 6.7 g/dL (12.0-16.0)
[2024-01-30] MEDS: ProAmatine PO (16:55)
[2024-01-30] MEDS: LIPITOR 10 MG PO (16:55)
[2024-01-30] MEDS: REMERON 7.5 MG PO (21:58)
[2024-01-30] MEDS: ROCEPHIN 1000 MG IV (21:59)
[2024-01-30] MEDS: TOPROL XL 12.5 MG PO (21:59)
[2024-01-30] MEDS: STERILE WATER FOR INJECTION 10 ML IV (22:01)
[2024-01-31 03:57] VITALS: BP 114/93
[2024-01-31 05:45] VITALS: BMI 23.8
[2024-01-31 07:21] VITALS: BP 102/63
[2024-01-31 08:49] LABS: Blood Urea Nitrogen 44 mg/dl (7-17); Calcium 9.4 mg/dl (8.4-10.2); Carbon Dioxide 26 mmol/L (22-30); Chloride 93 mmol/L (98-107); Estimated Creatinine Clearance 47 ml/min; Glucose 87 mg/dl (70-99); Potassium 5.1 mmol/L (3.5-5.1); Sodium 131 mmol/L (135-145); eGFR > 60.00
[2024-01-31 08:54] LABS: Hematocrit 28.1 % (37.0-47.0); Hemoglobin 9.1 g/dL (12.0-16.0); Mean Corp Hgb Conc. 32.4 g/dL (33.0-37.0); Mean Corpuscular Hgb 31.5 pg (27.0-31.0); Mean Corpuscular Volume 97.2 fL (81.0-99.0); Platelet Count 19 10^3/uL (130-400); Red Blood Cell Count 2.89 10^6/uL (4.20-5.40); White Blood Cell Count 8.4 10^3/uL (4.8-10.8)
[2024-01-31 09:16] VITALS: BMI 23.8
--- NOTE | 2024-01-31 09:20 | CON.ID ---
Consultation
-
Date/Time Consultation Requested: January 30, 2024 1630
Date/Time Consultation Performed: January 31, 2024 0920
Requesting Provider: Dr. Lincoln Vallejo
Performing Provider: Dr. Amparo Padron
Reason for Consultation: UTI vs colonization
Chief Complaint / Past History
Chief Complaint
Passed out.
History of Present Illness
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
placement, chronic hypotension on midodrine, recent hospitalization 01/03 to with worsening anemia, thrombocytopenia, GIB probably from AVM, possible ascending UTI on CT scan, treated with a course of antibiotic, who presented from SNF
01/31/24 with unresponsiveness x few seconds. She is afebrile, normal wbc. Potassium severely low at 2.5. Hemoglobin dropped to 6.7. Platelets trended down to 19. Currently on ceftriaxone for presumed UTI. Today patient reports she could not
recall events. She did not have symptoms prior to syncope. No fevers or chills. No cough or shortness of breath. No nausea vomiting abdominal pain or diarrhea. No dysuria, bladder discomfort or flank pain.
Past History
Additional Past Medical History:
CREST syndrome with Lupus/scleroderma overlap
Chronic hypotension on midodrine
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
CKD3
Urinary retention with chronic patel
HFpEF
HTN
Chronic thrombocytopenia
Pulmonary hypertension
PE 2006
IVC filter placement 2007
Bilateral total hip arthroplasty
Hysterectomy
Perineoplasty
Allergy History:
No Known Allergies Allergy (Verified 07/12/23 12:25)
Medications Reviewed: Yes
Current Antibiotics:
Ceftriaxone d4
Social History
Tobacco: Non-Smoker
Alcohol: Occasional
Drug: None
Living: Care Home ([facility])
Family History
Family History: Not Pertinent
Review of Systems
Review of Systems
General: Negative Fever, Chills or Change in Appetite
HEENT: Negative Sinus Problems or Pharyngitis
Cardiovascular: Negative Chest Pain or Dyspnea
Respiratory: Negative Dyspnea or Cough
Gasteroenterology: Negative Nausea, Vomiting or Diarrhea
Genital / Urological: Negative Dysuria or Flank Pain
Neurological: Negative Dizziness
All systems: All other systems were reviewed and were negative
Vital Signs
Temp Pulse Resp BP Pulse Ox
98.7 F 123 18 102/63 94
01/31/24 07:21 01/31/24 07:21 01/31/24 07:21 01/31/24 07:21 01/31/24 07:21
Physical Exam
Physical Exam
Constitutional: No Acute Distress and Comfortable
Eyes: No Conjunctival Hemorrhage and Sclera Anicteric
Cardiovascular: Regular Rate and S1/S2
Pulmonary: Clear
Gastrointestinal: Soft, Non Tender, Non Distended and Normal Bowel Sounds
Genito-Urinary: Patel (Positive sediments in tubing) and Clear Urine
Extremities: Edema
Neurological: Awake and Alert
Lab / Diagnostic Study Results
01/31/24 07:51
01/31/24 07:51
Total Counted 100 01/28/24 14:07
Abs Neuts (Manual) 6.6 10^3/uL (1.4-6.5) H 01/28/24 14:07
Segmented Neutrophils 83 % (42-75) H 01/28/24 14:07
Band Neutrophils 10 % (0-3) H 01/28/24 14:07
Lymphocytes (Manual) 1 % (20-51) L 01/28/24 14:07
Urine WBC 60-70 /HPF (0-5) A 01/28/24 14:07
Ur Squamous Epith Cells >30 /LPF (Few) 01/28/24 23:12
Microbiology Results
Micro:
01/28/24 17:34 Blood Culture - Preliminary
Blood/Venous No Growth in 48 hours- Final report to follow
01/28/24 17:34 Blood Culture - Preliminary
Blood/Venous No Growth in 48 hours- Final report to follow
01/28/24 23:12 Urine Culture - Final
Urine
01/28/24 14:07 Urine Culture - Final
Urine Klebsiella pneumoniae
Proteus mirabilis
01/28/24 21:10 MRSA Screen - Final
Nose No Methicillin Resistant Staphylococcus aureus isolated.
01/28/24 CXR: No acute cardiopulmonary process
Assessment / Plan
# Bacteruria
# urinary retention with chronic patel, changed 01/27.
- Initial Ucx Proteus,Klebsiella.
- Ucx after patel change <80K mixed mark
- No uncommon to have abnormal UA and colonized bacteria in setting of chronic patel.
- Pt asymptomatic, no fever.
- DC further ceftriaxone.
- ID will sign off.
#s/p severe hypokalemia
# Acute on chronic anemia and thrombocytopenia
- For eventual bone marrow biopsy per Hem/Onc
# Conditions [employer]
CREST syndrome with Lupus/scleroderma overlap
Chronic hypotension on midodrine
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
CKD3
Urinary retention with chronic patel
HFpEF
HTN
Chronic thrombocytopenia
Pulmonary hypertension
PE 2006
IVC filter placement 2007
Bilateral total hip arthroplasty
Hysterectomy
Perineoplasty
[2024-01-31] MEDS: KLOR-CON 40 MEQ PO ×2 (09:42→20:52)
[2024-01-31] MEDS: DELTASONE 50 MG PO (09:42)
[2024-01-31] MEDS: REVATIO 20 MG PO ×3 (09:42→20:54)
[2024-01-31] MEDS: ProAmatine 10 MG PO (09:43)
[2024-01-31] MEDS: PROTONIX 40 MG PO (09:43)
[2024-01-31] MEDS: SANTYL OINTMENT 1 APPLIC TOPICAL ×2 (09:48→20:53)
[2024-01-31 10:24] LABS: Cortisol, Random 24.6 ug/dl; TSH 1.91 uIU/ml (0.47-4.68)
--- NOTE | 2024-01-31 13:07 | WOUNDNOTE ---
[facility] RN note: Patient seen around 12:30am. Patient admitted with hypokalemia. Patient admitted from [facility]. Patient stated she has an air mattress at [facility].
See H&P for complete history.
PMH: CHF, GERD, pulmonary HTN, GI bleed, thrombocytopenia, PE, IVC filter 2009, scleroderma (prednisone), R hip fracture, bilateral hip surgery, Asvage catheter.
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 Patient incontinent of stool. Savage catheter in place. Scattered bruises on posterior calves.
Blanchable mild red heels.
Appetite: good for breakfast. Patient forgetful.
Pressure redistribution devices in place: Waffle air overlay. Patient cannot turn self in bed.
Plan: Sacral dressing changed. Patient turned to R semi side lying position with help from [facility] RN assist Calixto. Heels off bed with air chair cushion. Instructed patient pressure injury prevention measures.
Updated Dr. Davis re: suspect stage 4 sacral pressure injury to bone under yellow slough; defer to hospitalist if any imaging indicated. Dr. Davis approved local care, air overlay or air mattress. Discussed with RN Will.
Care plan to be updated and will follow as needed.
Recommend follow up at wound care center upon discharge.
[2024-01-31] MEDS: ProAmatine PO ×2 (14:01→17:57)
[2024-01-31] MEDS: ZINC OXIDE OINTMENT 1 APPLIC TOPICAL (14:01)
[2024-01-31 14:19] LABS: Vitamin B12 901 pg/ml (239-931)
[2024-01-31 15:10] VITALS: BP 117/73
--- NOTE | 2024-01-31 15:30 | CM ---
manager business planning reviewed patient's chart and will reach out to patient's son, plan is for skilled placement at [facility] and [facility], patient will need to complete financial applications for both facilities, patient will need PT/OT assessment to
assist with skilled placement.
Plan; skilled placement at [facility] or [facility].
--- NOTE | 2024-01-31 17:21 | WOUNDNOTE ---
[facility] RN note: House texted Dr. Padron letting her know patient came in with a stage 4 sacral pressure injury which could be to the bone under the yellow slough. Wound pictures in chart.
--- NOTE | 2024-01-31 17:36 | W.PN.HOSP.TC ---
Today's Communication/Plan
-
Monitor mental status.
Observe off antibiotics while Savage in place.
Monitor hemoglobin
Continue PPI
Consider to resume Lasix if stable BP over the next 24 hours.
Continue prednisone 50 mg at the maintenance dose.
Physical therapy assessment.
Assessment / Plan
Assessment / Plan
Impression:
Presented from nursing facility with a syncopal episode.
Initial concern for severe sepsis secondary to catheter associated urinary tract infection, ruled out.
Metabolic encephalopathy likely multifactorial
Acute on chronic anemia
Acute on chronic hyponatremia
Severe hypokalemia.
Other conditions:
Recent hospitalization with acute gastrointestinal hemorrhage with acute blood loss anemia and hemorrhagic shock.
Chronic diastolic CHF.
Chronic hypotension requiring midodrine.
Anemia of chronic disease.
Chronic thrombocytopenia.
History of DVT PE. [address] with history of thrombosis.
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
Pulmonary hypertension
CKD 3 by history
Chronic bladder outlet obstruction requiring indwelling Savage catheter
Plan:
Initial concern for severe sepsis secondary to catheter associated urine tract infection
Repeated urine cultures consistent with contamination per
Blood cultures negative to date
Infectious disease input appreciated.
Antibiotics discontinued
Monitor closely
Metabolic encephalopathy likely multifactorial in the settings of relative hypotension and anemia
Mental status close to baseline.
Acute on chronic anemia.
Has a history of acute blood loss over prior admission.
No evidence of overt bleeding since admission.
Hemoglobin trending down 8.3�6.7 at the lowest with appropriate response to transfusion 1 units of packed red blood cells given with hemoglobin at 9.1.
Recent workup for acute anemia with CTA negative for acute blood loss
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
Most likely lower gastrointestinal bleeding in the settings of AVM, severe grade D esophagitis in the settings of chronic thrombocytopenia as well as chronic corticosteroid use
Remains high risk for endoscopic evaluation given severe thrombocytopenia.
Monitor hemoglobin closely
Continue PPI
Diet has been advanced
Chronic thrombocytopenia
? If consumptive
Follow CBC/platelet count
Acute hyponatremia.
Currently off Lasix.
Follow BMP.
If worsening consider further workup with urine osmolarity
TSH within normal limits
Less likely adrenal insufficient
Serum cortisol skewed while on chronic prednisone.
Hypokalemia improved with repletion.
Monitor oral intake
Currently off Lasix
CKD stage III by history
Stable creatinine
Chronic CHF preserved EF.
Echo 12/15 LVEF 55-60%
Pulmonary hypertension with PAP 52 mmHg.
Consider to resume Lasix if stable hemodynamics and hemoglobin over the next 24 to 48 hours
Continue Revatio
Continue Toprol
Continue midodrine
Scleroderma/lupus/crest overlapping disorder.
Had been on high-dose of prednisone 50 mg daily.
History of DVT/PE
IVC filter in place with thrombosis according to recent imaging.
Not on anticoagulation due to high risk given severe anemia with ongoing gastrointestinal loss as well as thrombocytopenia.
Right hip pain due to chronic right periprosthetic femoral fracture
Recommended conservative management by orthopedics.
Continue Ultram for pain.
Anticipated Discharge: 24 - 48 hours
Subjective/Interval History
-
Date of Service: January 31, 2024
Objective Data
-
Labs:
Laboratory Results
01/31/24
07:51
WBC 8.4
Hgb 9.1 L D
Hct 28.1 L
Plt Count 19 L* D
Sodium 131 L
Potassium 5.1
Chloride 93 L
Carbon Dioxide 26
BUN 44 H
Creatinine 0.9
Glucose 87
Calcium 9.4
Vital Signs:
Vital Signs
Temp Pulse Resp BP Pulse Ox
98.6 F 105 20 117/73 96
01/31/24 15:10 01/31/24 15:10 01/31/24 15:10 01/31/24 15:10 01/31/24 15:10
I&O
01/30/24 01/31/24 02/01/24
06:59 06:59 06:59
Intake Total 1090 / 1090 720 / 720
Output Total 725 / 725 500 / 500
Balance 365 / 365 220 / 220
Physical Exam
-
General: Well Developed and No Apparent Distress
HEENT: Normocephalic, Moist Mucous Membranes and Anicteric
Respiratory: Clear to Auscultation
Cardiac: Regular Rhythm and S1/S2
GI: Soft, Nontender, Nondistended and Normal Bowel Sounds
Musculoskeletal: Edema, Right Lower Extrem and Edema, Left Lower Extrem
Skin: Warm and Dry
Neuro: Awake, Alert, Oriented and AO x 3
Psych: Calm
[2024-01-31] MEDS: LIPITOR 10 MG PO (17:57)
[2024-01-31 18:46] LABS: Osmolality Urine 421 mOsm/kg (300-900)
[2024-01-31 19:02] LABS: Urine Sodium 11 mmol/L (30-90)
[2024-01-31] MEDS: REMERON 7.5 MG PO (20:52)
[2024-01-31] MEDS: TOPROL XL 12.5 MG PO (20:57)
[2024-01-31 23:06] VITALS: BP 99/65
[2024-02-01] VITALS (11 sets, daily range): BP systolic 90–126; BP diastolic 55–80; BMI 24.3
[2024-02-01 08:39] LABS: Hematocrit 21.4 % (37.0-47.0); Hemoglobin 6.9 g/dL (12.0-16.0); Mean Corp Hgb Conc. 32.2 g/dL (33.0-37.0); Mean Corpuscular Hgb 31.1 pg (27.0-31.0); Mean Corpuscular Volume 96.4 fL (81.0-99.0); Platelet Count 27 10^3/uL (130-400); Red Blood Cell Count 2.22 10^6/uL (4.20-5.40); Red Cell Dist. Width 23.4 % (11.5-14.5); White Blood Cell Count 9.7 10^3/uL (4.8-10.8)
[2024-02-01] MEDS: SANTYL OINTMENT 1 APPLIC TOPICAL ×2 (09:09→19:56)
[2024-02-01] MEDS: KLOR-CON 40 MEQ PO (09:09)
[2024-02-01] MEDS: PROTONIX 40 MG PO (09:09)
[2024-02-01] MEDS: REVATIO 20 MG PO ×3 (09:10→21:21)
[2024-02-01] MEDS: ProAmatine 10 MG PO ×2 (09:10→12:56)
[2024-02-01] MEDS: DELTASONE 50 MG PO (09:11)
[2024-02-01] MEDS: ZINC OXIDE OINTMENT 1 APPLIC TOPICAL (09:11)
[2024-02-01 09:30] LABS: Blood Urea Nitrogen 64 mg/dl (7-17); Calcium 9.4 mg/dl (8.4-10.2); Carbon Dioxide 25 mmol/L (22-30); Chloride 96 mmol/L (98-107); Estimated Creatinine Clearance 39 ml/min; Glucose 119 mg/dl (70-99); Potassium 5.7 mmol/L (3.5-5.1); Sodium 132 mmol/L (135-145); eGFR 53.72
--- NOTE | 2024-02-01 10:06 | W.PN.ONC ---
Today's Communication / Plan
-
Significant anemia and thrombocytopenia persist, without unifying diagnosis
Will transfuse another 1u prbcs
No iron, B12, or folate deficiency
No evidence for hemolysis. No evidence for plasma cell d/o. No significant findings on flow cytometry.
FOBT likely unreliable in the setting of thrombocytopenia; watch for any signs of GI bleeding.
She needs bone marrow biopsy, will request it be done as inpatient.
Impression
Impression
anemia, thrombocytopenia
syncope
hypokalemia
?dementia
Plan
Plan
Significant anemia and thrombocytopenia persist, without unifying diagnosis
Will transfuse another 1u prbcs
No iron, B12, or folate deficiency
No evidence for hemolysis. No evidence for plasma cell d/o. No significant findings on flow cytometry.
FOBT likely unreliable in the setting of thrombocytopenia; watch for any signs of GI bleeding.
She needs bone marrow biopsy, will request it be done as inpatient.
Subjective/Objective
Subjective/Objective
No subjective complaints, answers questions, but seems a bit off.
Vital Signs:
Vital Signs
Temp Pulse Resp BP Pulse Ox
98.3 F 131 20 110/68 96
02/01/24 07:31 12 07:31 02/01/24 07:31 02/01/24 07:31 02/01/24 07:31
awake, answers appropriately, but seems off, poor eye contact, left upward gaze.
tachycardic, regular
scattered petechiae/ecchymoses
Lab Results:
Laboratory Data
WBC 9.7 10^3/uL (4.8-10.8) 02/01/24 07:41
Hgb 6.9 g/dL (12.0-16.0) L* D 02/01/24 07:41
Plt Count 27 10^3/uL (130-400) L* D 02/01/24 07:41
eGFR 53.72 02/01/24 07:41
--- NOTE | 2024-02-01 12:03 | CON.GI ---
Addendum entered and electronically signed by America Baez MD 02/01/24 16:34:
I saw and examined the patient.
The [employer]'s note was reviewed and I agree with the note.
Comment: This is a 73-year-old female with multiple comorbidities with past medical history as listed below who is on chronic steroid therapy for minimal-change disease, severe pulmonary hypertension, scleroderma/lupus overlap, CREST syndrome, CHF,
GERD, hyperlipidemia, DVT, PE with subsequent IVC filter placed (2007) who does have a history of severe esophagitis with large hiatal hernia on endoscopy on 08/23/2023 with also duodenal red spot non bleeding noted which was treated with APC but
unclear if it was an angioectasia she also has severe thrombocytopenia and recurrent anemia and has had recurrent admissions for this but was unable to get repeat procedures because of her severe thrombocytopenia and CHF other medical comorbidities
and complications related to that. she now presents with syncope and severe hypokalemia and was initially treated for possible urosepsis and was also noted to have black tarry stools with worsening anemia. Her last colonoscopy was in 2008
Assessment and plan recurrent anemia with now also having tarry stools in the setting of severe thrombocytopenia most likely related to esophagitis and probable Roberto's erosions with known hiatal hernia or peptic ulcer disease with chronic steroid
therapy or possible angioectasias. Continue PPI twice daily added Pepcid. Not a candidate for endoscopy given severe thrombocytopenia could consider if her platelet counts come up and if she does have brisk bleeding needs platelet transfusions.
Noted input from hematology she had a bone marrow biopsy today. She is also on antibiotics initially for UTI and once that was ruled out started on Unasyn today for stage IV sacral pressure ulcer with cellulitis per ID.
She will also need an eventual repeat endoscopy to check for healing and colonoscopy if platelet count improves
Will sign off and will be available as needed
Original Note:
Consultation
-
Date/Time Consultation Requested: 02/01/24 1030
Date/Time Consultation Performed: 02/01/24 1200
Requesting Provider: Stalin Davis MD
Performing Provider: LUCY Donahue, America baez MD
Reason for Consultation: anemia/bleeding
Medical History
Chief Complaint / HPI
Chief Complaint: anemia
History of Present Illness:
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
LA grade D esophagitis (08/23/2023), large hiatal hernia, duodenal bleeding with APC treatment (unlikely angioectasia), anemia, thrombocytopenia, and osteoarthritis with several recent admissions. In November she presented with weakness, fatigue and
hypotension in setting of pulm HTN, and acute CHF. She was also noted with hypoxemia, hyponatremia , elevated troponin and seen by GI and heme for anemia and heme + stool. Per heme anemia likely multi factorial with multiple illnesses, B12
deficiency, crest with GI bleeding, prior noted grade D esophagitis and prior noted AVM and to consider eventual bone marrow biopsy. She was seen by GI without overt bleeding and recommended OP follow up for colonoscopy. She was seen again in
December with drop in hbg but as noted with with Seizure and multiple other issues including profound thrombocytopenia that continued with platelets now (14-32 this admission), electrolyte imbalance, UTI, CHF issue without signs of hemorrhagic
shock scopes were held. She was discharged 01/11. She returned 01/27 with syncope with severe hypokalemia and UTI with sepsis that is now ruled out. Asked to see as still noted with black tarry stools and drop in hbg to 6.9.
In review with nursing staff noted with 1-2 black stool with small volume per day. She has some forgetfulness but dysphagia, GERD, nausea, vomiting, abdominal pain, diarrhea, constipation, blood or black in stools. She did have hx of EGD
with push enteroscopy performed on 08/23/2023 that showed LA grade D esophagitis. Large hiatal hernia. No gross lesions in the entire stomach. Congested duodenal mucosa. Dilated lacteals were found in the duodenum.A single spot with no bleeding in
the duodenum. Unlikely angiectasia. Treated with APC. Congested jejunal mucosa.. Last colonoscopy 2008 pt recalls as normal.
Past Medical History
Past Medical History: CHF, GERD, HTN, Hypercholesterolemia and Other (DJD, DVT, PE, osteoarthritis, severe pulm HTN, pulm nodule, cystocele, rectocele, right hydronephrosis, scleroderma/lupus overlap,CREST syndrome, hiatal hernia, iron deficiency,
glaucoma, cataracts, anemia, overactive bladder, sepsis from UTI (05/2023), minimal change kidney disease )
Past Surgical History: Gynecological (hysterectomy), Orthopedic (R THR, L THR) and Other (IVC filter, sacrospinous ligament fixation, anterior and posterior colporrhaphy and perineoplasty, right renal bx/left renal bx)
Social History
Tobacco: Non-Smoker
Alcohol: None
Drug: None
Personal:
Living: Senior Living
Employment: Retired
Family History
Family History: Other (no family hx colon CA or polyps)
Allergies / Home Medications
Allergy/AdvReac Type Severity Reaction Status Date / Time
No Known Allergies Allergy Verified 07/12/23 12:25
�Medication �Instructions �Recorded
sildenafil (pulm.hypertension) 20 20 mg PO TID pulmonary hypertension 05/24/23
mg tablet
azelastine 137 mcg (0.1 %) nasal 1 spray intranasal BID Allergies 12/01/23
spray
collagenase clostridium histo. 250 1 applic topical DAILY sacral wound 12/01/23
unit/gram topical ointment (Santyl)
prednisone 50 mg tablet 50 mg PO DAILY Autoimmune disorder 12/01/23
acetaminophen 325 mg tablet 650 mg PO Q4HPRN PRN mild pain/ 01/04/24
fever
atorvastatin 10 mg tablet 10 mg PO QPM High cholesterol 01/04/24
bisacodyl 10 mg rectal suppository 10 mg VT DAILYPRN PRN day 5 no bm 01/04/24
magnesium hydroxide 400 mg/5 mL 30 ml PO [id number] PRN no bm in 3 01/04/24
oral suspension (Milk of Magnesia) days
metoprolol succinate 25 mg 12.5 mg PO HS Blood Pressure 01/04/24
tablet,extended release 24 hr
sodium phosphates 19 gram-7 118 ml VT DAILYPRN PRN day 6 no bm 01/04/24
gram/118 mL enema (Fleet Enema)
tramadol 50 mg tablet 50 mg PO [id number] PRN severe pain 01/04/24
zinc oxide 20 % topical paste 1 ea topical DAILY sacral wound 01/04/24
zinc oxide 20 % topical paste 1 ea topical DAILYPRN PRN buttocks 01/04/24
soilage/dislodgement
furosemide 40 mg tablet 60 mg (1.5 x 40 mg) PO DAILY #45 01/11/24
tabs
midodrine 10 mg tablet 10 mg PO TID 01/28/24
mirtazapine 15 mg tablet 7.5 mg PO DAILY 01/28/24
pantoprazole 40 mg tablet,delayed 40 mg PO DAILY 01/28/24
release
potassium chloride 20 mEq oral 40 meq PO BID 01/28/24
packet
Review of Systems
-
History Source: Patient
Constitutional: Reports No Symptoms and Fatigue
EENT: Reports No Symptoms
Respiratory: Reports No Symptoms
Cardiac: Reports No Symptoms
Abdomen/GI: Reports Diarrhea (per prior eval currently 1-2 stools per day ) and Other (recent decreased appetite )
Musculoskeletal: Reports No Symptoms
Neurological: Reports Weakness
Hematologic/Lymphatic: Reports Bleeding (hx slow GI bleeding)
Vital Signs
Temp Pulse Resp BP Pulse Ox
98.4 F 117 20 100/60 92
02/01/24 11:17 02/01/24 11:17 02/01/24 11:17 02/01/24 11:17 02/01/24 11:17
Physical Exam
Exam
General: Well Developed, Well Nourished and No Apparent Distress
HEENT: Normocephalic and Anicteric
Respiratory: Other (mild dyspnea)
Cardiac: Other (tachy)
GI: Soft, Non Tender and Non Distended
Musculoskeletal: No Clubbing and No Cyanosis
Skin: Warm and Dry
Neuro: Awake, Alert and Other (confused to some questions )
Psych: Calm
Results
WBC 9.7 10^3/uL (4.8-10.8) 02/01/24 07:41
Hgb 6.9 g/dL (12.0-16.0) L* D 02/01/24 07:41
Hct 21.4 % (37.0-47.0) L 02/01/24 07:41
MCV 96.4 fL (81.0-99.0) 02/01/24 07:41
Plt Count 27 10^3/uL (130-400) L* D 02/01/24 07:41
Sodium 132 mmol/L (135-145) L 02/01/24 07:41
Potassium 5.7 mmol/L (3.5-5.1) H 02/01/24 07:41
Chloride 96 mmol/L (98-107) L 02/01/24 07:41
Carbon Dioxide 25 mmol/L (22-30) 02/01/24 07:41
BUN 64 mg/dl (7-17) H 02/01/24 07:41
Creatinine 1.1 mg/dL (0.6-1.0) H 02/01/24 07:41
Calcium 9.4 mg/dl (8.4-10.2) 02/01/24 07:41
Total Bilirubin 1.4 mg/dl (0.2-1.3) H 01/29/24 06:06
AST 14 U/L (14-36) 01/29/24 06:06
ALT 19 U/L (0-35) 01/29/24 06:06
Alkaline Phosphatase 204 U/L (38-126) H 01/29/24 06:06
Diagnostic Image Results:
01/04/24 CT A
1. No CTA evidence for acute active gastrointestinal hemorrhage.
2. Severe diverticulosis in the sigmoid colon.
3. Severe chronic bilateral renal disease.
4. Small amount of air in the right intrarenal collecting system and right renal pelvis (either secondary to emphysematous pyelitis or recent instrumentation). Mild debris in the distended right renal pelvis. Moderate distention of the right renal
pelvis and right upper pole intrarenal calyces. Mild urothelial thickening and mild distention of the right ureter suggesting ascending urinary tract infection.
5. Savage catheter in moderate air in the urinary bladder.
6. Infrarenal IVC filter containing thrombus.
7. Moderate to severe pancreatic parenchymal atrophy.
8. Large hiatal hernia.
9. Mild cardiomegaly.
10. Severe discogenic degenerative disease and facet joint arthrosis in the lower lumbar spine.
11. Bilateral total hip arthroplasties in place.
Prior GI Procedures:
EGD/enteroscopy 08/23/23: ([facility]) - Dilated lacteals were found in the duodenum.
- A single spot with no bleeding in the duodenum.
Unlikely angiectasia. Treated with argon plasma
coagulation (APC).
- Congested jejunal mucosa. Biopsied.
Colonoscopy: Colonoscopy: Patient states in 2008, cannot remember the physician states it was normal.
Assessment / Plan
-
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
LA grade D esophagitis (08/23/2023), large hiatal hernia, duodenal bleeding with APC treatment (unlikely angioectasia), anemia, thrombocytopenia, and osteoarthritis with several recent admissions. In November she presented with weakness, fatigue and
hypotension in setting of pulm HTN, and acute CHF. She was also noted with hypoxemia, hyponatremia , elevated troponin and seen by GI and heme for anemia and heme + stool. Per heme anemia likely multi factorial with multiple illnesses, B12
deficiency, crest with GI bleeding, prior noted grade D esophagitis and prior noted AVM and to consider eventual bone marrow biopsy. She was seen by GI without overt bleeding and recommended OP follow up for colonoscopy. She was seen again in
December with drop in hbg but as noted with with Seizure and multiple other issues including profound thrombocytopenia that continued with platelets now (14-32 this admission), electrolyte imbalance, UTI, CHF issue without signs of hemorrhagic
shock scopes were held. She was discharged 01/11. She returned 01/27 with syncope with severe hypokalemia and UTI with sepsis that is now ruled out. Asked to see as still noted with black tarry stools and drop in hbg to 6.9.
-melena
-persistent anemia with thrombocytopenia s/p bone marrow biopsy
-tachycardia
-hyperkalemia/hyponatremia
-recent syncope/seizure
-grade D esophagitis
-prior noted AVM
-HFrEF with recent admission
-hypotension
other
-GERD
-CKD
-minimal change disease
-severe pulm HTN
-scleroderma/lupus
-crest syndrome
-CHF
-hyperlipidemia
-DVT/PE with filter
-B12 deficiency
-hx GERD
-hypoalbuminemia
-pancreatic atrophy per prior CT
PLAN:
Pt with recurrent GI consult for similar symptoms with anemia and black stools
She is noted noted with large HH, grade D esophagitis, duodenal bleeding with APC treatment in August 2023,last colon 2008
most recent evaluation held for further testing as multiple medical issues and profound thrombocytopenia (platelet 14-32 this admission) limiting ability for EGD/colon
appreciate heme eval
s/p bone marrow biopsy complete today to rule out underlying heme issue for anemia await results
cont to transfuse as needed per hematology
will review with Dr. Baez for repeat EGD but noted with some mild dyspnea and tachycardia with confusion on return for bone marrow biopsy
CTA neg last month and bleeding at this time slow so repeat low yield
correct K per medical team
cont PPI BID will add Famotidine at HS
-
-
Thank you for consultation and allowing me to participate in the patient's care. Please call the consulting services associate GI physician during the after hours with any questions or concerns.
[2024-02-01] MEDS: NSS 1000 IV (12:54)
--- NOTE | 2024-02-01 13:24 | CM ---
Chart reviewed and patient has been referred for skilled placement, caseworker intake will need PT/OT notes also update on wound care and measurements. caseworker intake spoke with patient's son, Juan and he will complete application form for [facility]
and plans on meeting with admissions directly, patient also discussing [facility].
Plan; Skilled placement, long term care pharmacist
--- NOTE | 2024-02-01 15:03 | W.PN.ID1 ---
Date of Service
Date of Service: February 01, 2024
Today's Communication
Start Unasyn for sacrum fredy-wound cellulitis.
Assessment / Plan
# Sacral pressure injury (suspect stage 4) with surrounding cellulitis
- Start Unasyn 3g IV q6h
- Off load sacrum.
# Acute on chronic anemia and thrombocytopenia
- 01/31 s/p bone marrow biopsy
- Pt with black tarry stool
# Bacteruria
# urinary retention with chronic patel, changed 01/27.
- Initial Ucx Proteus,Klebsiella.
- Ucx after patel change <80K mixed mark
- No uncommon to have abnormal UA and colonized bacteria in setting of chronic patel.
- Pt asymptomatic, no fever.
- s/p ceftriaxone
#s/p severe hypokalemia
# Conditions [employer]
CREST syndrome with Lupus/scleroderma overlap
Chronic hypotension on midodrine
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
CKD3
Urinary retention with chronic patel
HFpEF
HTN
Chronic thrombocytopenia
Pulmonary hypertension
PE 2006
IVC filter placement 2007
Bilateral total hip arthroplasty
Hysterectomy
Perineoplasty
Chief Complaint
-: Other (sacral decub)
Subjective / Review of Systems
No complaints today.
Vital Signs / Physical Exam
Vital Signs
Vital Signs
Temp Pulse Resp BP Pulse Ox
98.1 F 109 19 104/59 92
02/01/24 14:07 02/01/24 14:07 02/01/24 14:07 02/01/24 14:07 02/01/24 13:26
Physical Exam
Constitutional: Comfortable
Eyes: Sclera Anicteric
Cardiovascular: Regular Rate and S1/S2
Pulmonary: Clear
Gastrointestinal: Soft, Non Tender and Non Distended
Extremities: Edema
Wound: Other (Reviewed wound photos: Sacrum pressure injury with wounds, + fibrinous yellow slough, there is surrounding erythema)
Psychological: Other (Flat affect)
Objective Data
Lab Data
Lab Results
02/01/24 13:33
02/01/24 07:41
Estimated Creat Clear 39 ml/min 02/01/24 07:41
Total Bilirubin 1.4 mg/dl (0.2-1.3) H 01/29/24 06:06
AST 14 U/L (14-36) 01/29/24 06:06
ALT 19 U/L (0-35) 01/29/24 06:06
Alkaline Phosphatase 204 U/L (38-126) H 01/29/24 06:06
Most recent labs reviewed.
Micro Results:
01/28/24 17:34 Blood Culture - Preliminary
Blood/Venous No Growth in 72 hours- Final report to follow
01/28/24 17:34 Blood Culture - Preliminary
Blood/Venous No Growth in 72 hours- Final report to follow
01/28/24 23:12 Urine Culture - Final
Urine
01/28/24 14:07 Urine Culture - Final
Urine Klebsiella pneumoniae
Proteus mirabilis
01/28/24 21:10 MRSA Screen - Final
Nose No Methicillin Resistant Staphylococcus aureus isolated.
01/28/24 CXR: No acute cardiopulmonary process
Care Review
Plan reviewed with: Physician (Dr. Davis)
--- NOTE | 2024-02-01 15:42 | W.PN.HOSP.TC ---
Today's Communication/Plan
-
Ongoing melena with trending down hemoglobin
N.p.o.
IV PPI with addition of famotidine
GI evaluation
Transfuse to keep hemoglobin above 8�9.
Follow platelet level
Bone marrow biopsy as per oncology.
Transition to IV corticosteroids/hydrocortisone
Off Lasix
With hyperkalemia hold potassium supplement
Assessment / Plan
Assessment / Plan
Impression:
Presented from nursing facility with a syncopal episode.
Initial concern for severe sepsis secondary to catheter associated urinary tract infection, ruled out.
Metabolic encephalopathy likely multifactorial
Acute on chronic anemia
Acute on chronic hyponatremia
Severe hypokalemia.
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
Other conditions:
Recent hospitalization with acute gastrointestinal hemorrhage with acute blood loss anemia and hemorrhagic shock.
Chronic diastolic CHF.
Chronic hypotension requiring midodrine.
Anemia of chronic disease.
Chronic thrombocytopenia.
History of DVT PE. [address] with history of thrombosis.
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
Pulmonary hypertension
CKD 3 by history
-S/p renal biopsy complicated with hemorrhage
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
Chronic bladder outlet obstruction requiring indwelling Savage catheter
Plan:
Initial concern for severe sepsis secondary to catheter associated urine tract infection
Repeated urine cultures consistent with contamination per
Blood cultures negative to date
Infectious disease input appreciated.
Antibiotics discontinued
Monitor closely
Stage IV sacral pressure wound with cellulitis/osteomyelitis (exposed bone)
Initiated on Unasyn on 01/31
Metabolic encephalopathy likely multifactorial in the settings of relative hypotension and anemia
Mental status close to baseline.
Acute on chronic anemia.
Has a history of acute blood loss over prior admission.
No evidence of overt bleeding since admission.
Hemoglobin trending down 8.3�6.7 at the lowest with appropriate response to transfusion 1 units of packed red blood cells given with hemoglobin at 9.1.
Recent workup for acute anemia with CTA negative for acute blood loss
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
Most likely lower gastrointestinal bleeding in the settings of AVM, severe grade D esophagitis in the settings of chronic thrombocytopenia as well as chronic corticosteroid use
Ongoing melena with concern for slow gastrointestinal hemorrhage
Tachycardic
Transfuse: Second unit of packed red blood cells on 01/31P
Continue IV PPI.
GI consultation with consideration of endoscopy.
Chronic thrombocytopenia
? If consumptive
Bone marrow biopsy performed on 01/31
Acute hyponatremia.
Currently off Lasix.
Follow BMP.
If worsening consider further workup with urine osmolarity
TSH within normal limits
Less likely adrenal insufficient
Serum cortisol skewed while on chronic prednisone.
Hypokalemia improved with repletion.
Hyperkalemia potassium up to 5.7 on 01/31 while off Lasix.
Hold potassium supplements
Follow BMP
CKD stage III by history
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
Initiated on corticosteroids prednisone 50 mg daily by nephrology
Given ongoing gastrointestinal hemorrhage and while n.p.o. we will transition to IV hydrocortisone.
Would avoid abrupt discontinuation given risk for adrenal insufficiency
Chronic CHF preserved EF.
Echo 12/15 LVEF 55-60%
Pulmonary hypertension with PAP 52 mmHg.
Consider to resume Lasix if stable hemodynamics and hemoglobin over the next 24 to 48 hours
Continue Revatio
Continue Toprol
Continue midodrine
Scleroderma/lupus/crest overlapping disorder.
Had been on high-dose of prednisone 50 mg daily.
History of DVT/PE
IVC filter in place with thrombosis according to recent imaging.
Not on anticoagulation due to high risk given severe anemia with ongoing gastrointestinal loss as well as thrombocytopenia.
Right hip pain due to chronic right periprosthetic femoral fracture
Recommended conservative management by orthopedics.
Continue Ultram for pain.
Anticipated Discharge: > 48 hours
Subjective/Interval History
-
Date of Service: February 01, 2024
Objective Data
-
Labs:
Laboratory Results
02/01/24 02/01/24
07:41 13:33
WBC 9.7
Hgb 6.9 L* D 7.0 L
Hct 21.4 L
Plt Count 27 L* D
Sodium 132 L
Potassium 5.7 H
Chloride 96 L
Carbon Dioxide 25
BUN 64 H
Creatinine 1.1 H
Glucose 119 H
Calcium 9.4
Vital Signs:
Vital Signs
Temp Pulse Resp BP Pulse Ox
98.3 F 107 20 120/68 92
02/01/24 15:14 02/01/24 15:14 02/01/24 15:14 02/01/24 15:14 02/01/24 15:14
I&O
01/31/24 02/01/24 02/02/24
06:59 06:59 06:59
Intake Total 1090 / 1090 840 / 840 0 / 0
Output Total 725 / 725 950 / 950
Balance 365 / 365 -110 / -110 0 / 0
Physical Exam
-
General: Well Developed and No Apparent Distress
HEENT: Normocephalic, Moist Mucous Membranes and Anicteric
Respiratory: Clear to Auscultation
Cardiac: Regular Rhythm and S1/S2
GI: Soft, Nontender, Nondistended and Normal Bowel Sounds
Musculoskeletal: Edema, Right Lower Extrem and Edema, Left Lower Extrem
Skin: Warm and Dry
Neuro: Awake, Alert, Oriented and AO x 3
Psych: Calm
[2024-02-01] MEDS: ProAmatine PO (16:58)
[2024-02-01] MEDS: LIPITOR 10 MG PO (18:01)
[2024-02-01] MEDS: NSS (PRESERVATIVE FREE) 10 ML IV (19:55)
[2024-02-01] MEDS: PROTONIX IV 40 MG IV (19:56)
[2024-02-01] MEDS: UNASYN IV (21:16)
[2024-02-01] MEDS: TOPROL XL 12.5 MG PO (21:19)
[2024-02-01] MEDS: PEPCID 20 MG PO (21:19)
[2024-02-01] MEDS: REMERON 7.5 MG PO (21:19)
[2024-02-02] VITALS (11 sets, daily range): BP systolic 85–121; BP diastolic 22–82; BMI 24.3
[2024-02-02] MEDS: UNASYN IV ×4 (01:42→20:27)
[2024-02-02] MEDS: NSS 1000 IV ×3 (03:47→15:30)
[2024-02-02] MEDS: REVATIO 20 MG PO ×3 (07:53→22:45)
[2024-02-02] MEDS: PROTONIX IV 40 MG IV ×2 (07:53→20:23)
[2024-02-02] MEDS: ProAmatine 10 MG PO ×2 (07:53→11:48)
[2024-02-02] MEDS: NSS (PRESERVATIVE FREE) 10 ML IV ×3 (07:54→20:23)
[2024-02-02] MEDS: SANTYL OINTMENT 1 APPLIC TOPICAL ×2 (07:54→20:26)
[2024-02-02] MEDS: SOLU-CORTEF 50 MG IV ×3 (07:54→23:24)
[2024-02-02] MEDS: ZINC OXIDE OINTMENT 1 APPLIC TOPICAL (07:56)
--- NOTE | 2024-02-02 09:33 | W.PN.ONC2 ---
Today's Communication / Plan
-
Await marrow results. Transfuse HgB < 7 or PLT < 15K
Impression
Impression
anemia, thrombocytopenia
syncope
hypokalemia
?dementia
Plan
Plan
Significant anemia and thrombocytopenia persist, without unifying diagnosis
No iron, B12, or folate deficiency
No evidence for hemolysis. No evidence for plasma cell d/o. No significant findings on flow cytometry.
FOBT likely unreliable in the setting of thrombocytopenia; watch for any signs of GI bleeding.
S/P bone marrow biops done as inpatient.
Subjective/Objective
Chief Complaint
ACS Heme ONC
Subjective
Remains weak. BMBx done yesterday.
Vital Signs:
Vital Signs
Temp Pulse Resp BP Pulse Ox
98.1 F 111 16 112/68 97
02/02/24 03:15 02/02/24 03:15 02/02/24 03:15 02/02/24 03:15 02/02/24 03:15
Lab Results:
Laboratory Data
WBC 9.7 10^3/uL (4.8-10.8) 02/01/24 07:41
Hgb 7.0 g/dL (12.0-16.0) L 02/01/24 13:33
Plt Count 27 10^3/uL (130-400) L* D 02/01/24 07:41
eGFR 53.72 02/01/24 07:41
--- NOTE | 2024-02-02 11:42 | CM ---
Patient seen at bedside, sleeping at this time. CM will return to continue assist with discharge planning needs.
Plan; SNF when medically appropriate.
[2024-02-02 13:47] LABS: Hematocrit 23.2 % (37.0-47.0); Hemoglobin 7.3 g/dL (12.0-16.0); Mean Corp Hgb Conc. 31.5 g/dL (33.0-37.0); Mean Corpuscular Hgb 30.5 pg (27.0-31.0); Mean Corpuscular Volume 97.1 fL (81.0-99.0); Red Blood Cell Count 2.39 10^6/uL (4.20-5.40); Red Cell Dist. Width 20.1 % (11.5-14.5)
[2024-02-02 14:02] LABS: Blood Urea Nitrogen 50 mg/dl (7-17); Calcium 8.6 mg/dl (8.4-10.2); Carbon Dioxide 20 mmol/L (22-30); Chloride 107 mmol/L (98-107); Estimated Creatinine Clearance 47 ml/min; Glucose 85 mg/dl (70-99); Potassium 4.5 mmol/L (3.5-5.1); Sodium 138 mmol/L (135-145); eGFR > 60.00
[2024-02-02 14:14] LABS: % Basophils 0.2 % (0-2); % Lymphocytes 0.3 % (20.5-51.1); % Monocytes 3.2 % (1.7-9.3); % Neutrophils 91.3 % (42.2-75.2); Absolute Immature Granulocytes 0.3 10^3/uL (0-0.05); Absolute Monocytes 0.2 10^3/uL (0.1-0.6); Absolute Neutrophils 5.5 10^3/uL (1.4-6.5); Nucleated Red Blood Cells % 1.2 %; Platelet Count 7 10^3/uL (130-400)
--- NOTE | 2024-02-02 15:34 | W.PN.HOSP.TC ---
Today's Communication/Plan
-
Hemoglobin has been stable with no evidence of brisk blood loss over the last 24 hours
Remains high risk for endoscopy given severe thrombocytopenia.
Transfuse to keep hemoglobin 8�9.
Clear liquid diet.
Steroid taper.
Monitor mild mental status
Consider neurologic evaluation including additional imaging
Assessment / Plan
Assessment / Plan
Impression:
Presented from nursing facility with a syncopal episode.
Initial concern for severe sepsis secondary to catheter associated urinary tract infection, ruled out.
Metabolic encephalopathy likely multifactorial
Acute on chronic anemia
Acute on chronic hyponatremia
Severe hypokalemia.
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
Other conditions:
Recent hospitalization with acute gastrointestinal hemorrhage with acute blood loss anemia and hemorrhagic shock.
Chronic diastolic CHF.
Chronic hypotension requiring midodrine.
Anemia of chronic disease.
Chronic thrombocytopenia.
History of DVT PE. [address] with history of thrombosis.
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
Pulmonary hypertension
CKD 3 by history
-S/p renal biopsy complicated with hemorrhage
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
Chronic bladder outlet obstruction requiring indwelling Savage catheter
Plan:
Initial concern for severe sepsis secondary to catheter associated urine tract infection
Repeated urine cultures consistent with contamination
Blood cultures negative to date
Infectious disease input appreciated.
Antibiotics discontinued
Monitor closely
Stage IV sacral pressure wound with cellulitis/osteomyelitis (exposed bone)
Initiated on Unasyn on 01/31
Metabolic encephalopathy likely multifactorial in the settings of relative hypotension and anemia
Mental status close to baseline.
Acute on chronic anemia.
Has a history of acute blood loss over prior admission.
No evidence of overt bleeding since admission.
Hemoglobin trending down 8.3�6.7 at the lowest with appropriate response to transfusion 1 units of packed red blood cells given with hemoglobin at 9.1.
Recent workup for acute anemia with CTA negative for acute blood loss
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
Most likely lower gastrointestinal bleeding in the settings of AVM, severe grade D esophagitis in the settings of chronic thrombocytopenia as well as chronic corticosteroid use
With ongoing melena with concern for slow gastrointestinal hemorrhage
Transfuse to keep hemoglobin above 8�9
Continue IV PPI.
Discussed with gastroenterology. Remains high risk for endoscopy given severe thrombocytopenia
Chronic thrombocytopenia
? If consumptive
Bone marrow biopsy performed on 01/31
Acute hyponatremia. Improved while off Lasix
Currently off Lasix.
Follow BMP.
If worsening consider further workup with urine osmolarity
TSH within normal limits
Less likely adrenal insufficient
Serum cortisol skewed while on chronic prednisone.
Hypokalemia improved with repletion.
Hyperkalemia potassium up to 5.7 on 01/31 while off Lasix.
Hold potassium supplements
Follow BMP
CKD stage III by history
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
Initiated on corticosteroids prednisone 50 mg daily by nephrology
Given ongoing gastrointestinal hemorrhage and while n.p.o. we will transition to IV hydrocortisone.
Would avoid abrupt discontinuation given risk for adrenal insufficiency
Chronic CHF preserved EF.
Echo 12/15 LVEF 55-60%
Pulmonary hypertension with PAP 52 mmHg.
Consider to resume Lasix if stable hemodynamics and hemoglobin over the next 24 to 48 hours
Continue Revatio
Continue Toprol
Continue midodrine
Scleroderma/lupus/crest overlapping disorder.
Had been on high-dose of prednisone 50 mg daily.
History of DVT/PE
IVC filter in place with thrombosis according to recent imaging.
Not on anticoagulation due to high risk given severe anemia with ongoing gastrointestinal loss as well as thrombocytopenia.
Right hip pain due to chronic right periprosthetic femoral fracture
Recommended conservative management by orthopedics.
Continue Ultram for pain.
Anticipated Discharge: > 48 hours
Subjective/Interval History
-
Date of Service: February 02, 2024
Objective Data
-
Labs:
Laboratory Results
02/02/24
13:32
WBC 6.0
Hgb 7.3 L
Hct 23.2 L
Plt Count 7 L* D
Sodium 138
Potassium 4.5
Chloride 107
Carbon Dioxide 20 L
BUN 50 H
Creatinine 0.9
Glucose 85
Calcium 8.6
Vital Signs:
Vital Signs
Temp Pulse Resp BP Pulse Ox
98.3 F 59 20 85/22 89
02/02/24 11:00 02/02/24 11:00 02/02/24 11:00 02/02/24 11:00 02/02/24 11:00
I&O
02/01/24 02/02/24 02/03/24
06:59 06:59 06:59
Intake Total 840 / 840 1810 / 1810
Output Total 950 / 950 450 / 450
Balance -110 / -110 1360 / 1360
Physical Exam
-
General: Well Developed and No Apparent Distress
HEENT: Normocephalic, Moist Mucous Membranes and Anicteric
Respiratory: Clear to Auscultation
Cardiac: Regular Rhythm and S1/S2
GI: Soft, Nontender, Nondistended and Normal Bowel Sounds
Musculoskeletal: Edema, Right Lower Extrem and Edema, Left Lower Extrem
Skin: Warm and Dry
Neuro: Awake, Alert, Oriented and AO x 3
Psych: Calm
[2024-02-02] MEDS: ProAmatine PO (18:14)
[2024-02-02] MEDS: LIPITOR 10 MG PO (18:14)
[2024-02-02] MEDS: NSS (PRESERVATIVE FREE) IV (20:28)
[2024-02-02] MEDS: PEPCID 20 MG PO (22:44)
[2024-02-02] MEDS: TOPROL XL 12.5 MG PO (22:46)
[2024-02-02] MEDS: REMERON 7.5 MG PO (22:50)
[2024-02-03] VITALS (8 sets, daily range): BP systolic 100–131; BP diastolic 46–75; BMI 25.1
[2024-02-03] MEDS: UNASYN IV ×4 (01:36→20:58)
--- NOTE | 2024-02-03 03:29 | DOWNTIME ---
There was a [email or web address] Downtime on 02/03/2024 from 0200 to 02/03/2024 at 0325 . Downtime documentation of patient's care, including medication administrations, has been reconciled in the electronic record per guidelines. Refer to the
patient's paper chart under the miscellaneous tab to see printed paper medication records and downtime forms.
[2024-02-03] MEDS: NSS (PRESERVATIVE FREE) 10 ML IV ×3 (08:07→20:57)
[2024-02-03] MEDS: SOLU-CORTEF 50 MG IV ×2 (08:07→17:42)
[2024-02-03] MEDS: PROTONIX IV 40 MG IV ×2 (08:08→20:58)
[2024-02-03] MEDS: SANTYL OINTMENT 1 APPLIC TOPICAL ×2 (08:08→20:56)
[2024-02-03] MEDS: REVATIO 20 MG PO ×3 (08:08→21:09)
[2024-02-03] MEDS: ProAmatine PO ×3 (08:09→17:41)
[2024-02-03] MEDS: ZINC OXIDE OINTMENT 1 APPLIC TOPICAL (08:11)
[2024-02-03 08:19] LABS: Hemoglobin 9.1 g/dL (12.0-16.0); Mean Corp Hgb Conc. 32.5 g/dL (33.0-37.0); Mean Corpuscular Hgb 31.5 pg (27.0-31.0); Mean Corpuscular Volume 96.9 fL (81.0-99.0); Red Blood Cell Count 2.89 10^6/uL (4.20-5.40); Red Cell Dist. Width 18.4 % (11.5-14.5); White Blood Cell Count 5.8 10^3/uL (4.8-10.8)
[2024-02-03 08:55] LABS: Blood Urea Nitrogen 38 mg/dl (7-17); Calcium 8.8 mg/dl (8.4-10.2); Carbon Dioxide 23 mmol/L (22-30); Chloride 110 mmol/L (98-107); Estimated Creatinine Clearance 53 ml/min; Glucose 89 mg/dl (70-99); Potassium 4.1 mmol/L (3.5-5.1); Sodium 141 mmol/L (135-145); eGFR > 60.00
[2024-02-03 09:05] LABS: Platelet Count 14 10^3/uL (130-400)
[2024-02-03 09:11] LABS: % Basophils 0.5 % (0-2); % Immature Granulocytes 4.5 % (0-0.5); % Lymphocytes 0.5 % (20.5-51.1); % Monocytes 4.1 % (1.7-9.3); % Neutrophils 90.4 % (42.2-75.2); Absolute Immature Granulocytes 0.3 10^3/uL (0-0.05); Absolute Monocytes 0.2 10^3/uL (0.1-0.6); Absolute Neutrophils 5.3 10^3/uL (1.4-6.5); Nucleated Red Blood Cells % 0.9 %
--- NOTE | 2024-02-03 10:20 | W.PN.ONC2 ---
Today's Communication / Plan
-
Await marrow results. monitor for bleeding. Transfuse HgB < 7 or PLT < 15K - I have ordered SDP today for platelet count 14,000
Impression
Impression
Presented from nursing facility with a syncopal episode
anemia, thrombocytopenia
hypokalemia
?dementia
Plan
Plan
Significant anemia and thrombocytopenia persist, without unifying diagnosis
No iron, B12, or folate deficiency
No evidence for hemolysis. No evidence for plasma cell d/o. No significant findings on flow cytometry.
FOBT likely unreliable in the setting of thrombocytopenia; watch for any signs of GI bleeding.
S/P bone marrow biopsy done as inpatient 01/31 -path pending
Subjective/Objective
Subjective
no new complaints
Vital Signs:
Vital Signs
Temp Pulse Resp BP Pulse Ox
98.4 F 102 16 103/61 94
02/03/24 03:20 02/03/24 03:20 02/03/24 03:20 02/03/24 03:20 02/03/24 03:20
Lab Results:
Laboratory Data
WBC 5.8 10^3/uL (4.8-10.8) 02/03/24 07:43
Hgb 9.1 g/dL (12.0-16.0) L D 02/03/24 07:43
Plt Count 14 10^3/uL (130-400) L* D 02/03/24 07:43
eGFR > 60.00 02/03/24 07:43
Physical Exam
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
HEENT: No Jaundice
Cardiology: S1 and S2 (tachcardia)
Pulmonary: Clear
GI: Soft
Extremities: Pulses Present
--- NOTE | 2024-02-03 14:22 | W.PN.HOSP.TC ---
Today's Communication/Plan
-
Follow bone marrow biopsy report.
Transfuse hemoglobin and platelets. Follow CBC.
Continue antibiotics covering sacral decub infection.
Advance to regular diet.
Continue IV PPI
Continue IV steroids with plan to transition to oral prednisone at the lower dose of 30 mg on 02/03.
Hold Lasix for another 24 to 48 hours
Physical therapy assessment
Assessment / Plan
Assessment / Plan
Impression:
Presented from nursing facility with a syncopal episode.
Initial concern for severe sepsis secondary to catheter associated urinary tract infection, ruled out.
Metabolic encephalopathy likely multifactorial
Acute on chronic anemia
Acute on chronic hyponatremia
Severe hypokalemia.
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
Other conditions:
Recent hospitalization with acute gastrointestinal hemorrhage with acute blood loss anemia and hemorrhagic shock.
Chronic diastolic CHF.
Chronic hypotension requiring midodrine.
Anemia of chronic disease.
Chronic thrombocytopenia.
History of DVT PE. [address] with history of thrombosis.
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
Pulmonary hypertension
CKD 3 by history
-S/p renal biopsy complicated with hemorrhage
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
Chronic bladder outlet obstruction requiring indwelling Savage catheter
Plan:
Initial concern for severe sepsis secondary to catheter associated urine tract infection
Repeated urine cultures consistent with contamination
Blood cultures negative to date
Infectious disease input appreciated.
Antibiotics discontinued
Monitor closely
Stage IV sacral pressure wound with cellulitis/osteomyelitis (exposed bone)
Initiated on Unasyn on 01/31
Metabolic encephalopathy likely multifactorial in the settings of relative hypotension and anemia
Mental status close to baseline.
MRI of the brain 02/02 with no evidence for acute intracranial abnormality. Moderate atrophy which appears fairly diffuse and slightly advanced for the patient's age.
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
Acute on chronic anemia.
Has a history of acute blood loss over prior admission.
No evidence of overt bleeding since admission.
Hemoglobin trending down 8.3�6.7 at the lowest with appropriate response to transfusion 1 units of packed red blood cells given with hemoglobin at 9.1.
Recent workup for acute anemia with CTA negative for acute blood loss
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
Most likely lower gastrointestinal bleeding in the settings of AVM, severe grade D esophagitis in the settings of chronic thrombocytopenia as well as chronic corticosteroid use
With ongoing melena with concern for slow gastrointestinal hemorrhage
Transfuse to keep hemoglobin above 8�9
Continue IV PPI.
Discussed with gastroenterology. Remains high risk for endoscopy given severe thrombocytopenia
Chronic thrombocytopenia
? If consumptive
Bone marrow biopsy performed on 01/31
Transfuse platelets if count less than 15K
Acute hyponatremia. Improved while off Lasix
Currently off Lasix.
Follow BMP.
If worsening consider further workup with urine osmolarity
TSH within normal limits
Less likely adrenal insufficient
Serum cortisol skewed while on chronic prednisone.
Hypokalemia improved with repletion.
Hyperkalemia potassium up to 5.7 on 01/31 while off Lasix.
Hold potassium supplements
Follow BMP
CKD stage III by history
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
Initiated on corticosteroids prednisone 50 mg daily by nephrology
Given ongoing gastrointestinal hemorrhage and while n.p.o. we will transition to IV hydrocortisone.
Would avoid abrupt discontinuation given risk for adrenal insufficiency
Chronic CHF preserved EF.
Echo 12/15 LVEF 55-60%
Pulmonary hypertension with PAP 52 mmHg.
Consider to resume Lasix if stable hemodynamics and hemoglobin over the next 24 to 48 hours
Continue Revatio
Continue Toprol
Continue midodrine
Scleroderma/lupus/crest overlapping disorder.
Had been on high-dose of prednisone 50 mg daily.
History of DVT/PE
IVC filter in place with thrombosis according to recent imaging.
Not on anticoagulation due to high risk given severe anemia with ongoing gastrointestinal loss as well as thrombocytopenia.
Right hip pain due to chronic right periprosthetic femoral fracture
Recommended conservative management by orthopedics.
Continue Ultram for pain.
Anticipated Discharge: > 48 hours
Subjective/Interval History
-
Date of Service: February 03, 2024
Objective Data
-
Labs:
Laboratory Results
02/03/24
07:43
WBC 5.8
Hgb 9.1 L D
Hct 28.0 L
Plt Count 14 L* D
Sodium 141
Potassium 4.1
Chloride 110 H
Carbon Dioxide 23
BUN 38 H
Creatinine 0.8
Glucose 89
Calcium 8.8
Vital Signs:
Vital Signs
Temp Pulse Resp BP Pulse Ox
97.9 F 106 21 131/75 96
02/03/24 07:00 02/03/24 07:00 02/03/24 07:00 02/03/24 07:00 02/03/24 07:00
I&O
02/02/24 02/03/24 02/04/24
06:59 06:59 06:59
Intake Total 1810 / 1810 1006 / 1006
Output Total 450 / 450 450 / 450
Balance 1360 / 1360 556 / 556
Physical Exam
-
General: Well Developed and No Apparent Distress
HEENT: Normocephalic, Moist Mucous Membranes and Anicteric
Respiratory: Clear to Auscultation
Cardiac: Regular Rhythm and S1/S2
GI: Soft, Nontender, Nondistended and Normal Bowel Sounds
Musculoskeletal: Edema, Right Lower Extrem and Edema, Left Lower Extrem
Skin: Warm and Dry
Neuro: Awake, Alert, Oriented and AO x 3
Psych: Calm
--- NOTE | 2024-02-03 17:07 | W.PN.ID1 ---
Date of Service
Date of Service: February 03, 2024
Today's Communication
Continue Unasyn.
Assessment / Plan
# Sacral pressure injury (suspect stage 4) with surrounding cellulitis
- Continue Unasyn 3g IV q6h (d3)
- Off load sacrum.
# Acute on chronic anemia and thrombocytopenia
- 01/31 s/p bone marrow biopsy
- Pt with black tarry stool
# Bacteruria
# urinary retention with chronic patel, changed 01/27.
- Initial Ucx Proteus,Klebsiella.
- Ucx after patel change <80K mixed mark
- No uncommon to have abnormal UA and colonized bacteria in setting of chronic patel.
- Pt asymptomatic, no fever.
- s/p ceftriaxone
#s/p severe hypokalemia
# Conditions [employer]
CREST syndrome with Lupus/scleroderma overlap
Chronic hypotension on midodrine
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
CKD3
Urinary retention with chronic patel
HFpEF
HTN
Chronic thrombocytopenia
Pulmonary hypertension
PE 2006
IVC filter placement 2007
Bilateral total hip arthroplasty
Hysterectomy
Perineoplasty
Chief Complaint
-: Other (sacral decub)
Vital Signs / Physical Exam
Vital Signs
Vital Signs
Temp Pulse Resp BP Pulse Ox
98.4 F 98 18 108/68 93
02/03/24 15:01 02/03/24 15:01 02/03/24 15:01 02/03/24 15:01 02/03/24 15:00
Physical Exam
Constitutional: Chronically Ill
Pulmonary: Clear (anteriorly)
Gastrointestinal: Soft, Non Tender and Non Distended
Extremities: Edema
Objective Data
Lab Data
Lab Results
02/03/24 07:43
02/03/24 07:43
Estimated Creat Clear 53 ml/min 02/03/24 07:43
Total Bilirubin 1.4 mg/dl (0.2-1.3) H 01/29/24 06:06
AST 14 U/L (14-36) 01/29/24 06:06
ALT 19 U/L (0-35) 01/29/24 06:06
Alkaline Phosphatase 204 U/L (38-126) H 01/29/24 06:06
Most recent labs reviewed.
Micro Results:
01/28/24 17:34 Blood Culture - Final
Blood/Venous No Growth - Final Report
01/28/24 17:34 Blood Culture - Final
Blood/Venous No Growth - Final Report
01/28/24 23:12 Urine Culture - Final
Urine
01/28/24 14:07 Urine Culture - Final
Urine Klebsiella pneumoniae
Proteus mirabilis
01/28/24 21:10 MRSA Screen - Final
Nose No Methicillin Resistant Staphylococcus aureus isolated.
01/28/24 CXR: No acute cardiopulmonary process
[2024-02-03] MEDS: LIPITOR 10 MG PO (17:42)
[2024-02-03] MEDS: NSS (PRESERVATIVE FREE) IV (20:57)
[2024-02-03] MEDS: PEPCID 20 MG PO (21:02)
[2024-02-03] MEDS: REMERON 7.5 MG PO (21:08)
[2024-02-03] MEDS: TOPROL XL 12.5 MG PO (21:12)
[2024-02-04] VITALS (11 sets, daily range): BP systolic 80–105; BP diastolic 50–58; PULSE 61–109; O2SAT 95
[2024-02-04] MEDS: SOLU-CORTEF 50 MG IV ×2 (01:18→10:27)
[2024-02-04] MEDS: UNASYN IV ×2 (01:19→09:16)
[2024-02-04 10:19] LABS: INR 1.07; PT 14.2 Sec (11.4-14.6)
[2024-02-04 10:20] LABS: APTT 23.9 Sec (23.4-35.0)
[2024-02-04] MEDS: NSS (PRESERVATIVE FREE) 10 ML IV ×2 (10:24→22:58)
[2024-02-04] MEDS: PROTONIX IV 40 MG IV ×2 (10:25→22:57)
[2024-02-04] MEDS: NSS (PRESERVATIVE FREE) IV ×2 (10:26→22:58)
[2024-02-04] MEDS: ProAmatine 10 MG PO ×3 (10:27→17:52)
[2024-02-04] MEDS: REVATIO 20 MG PO ×3 (10:27→22:59)
[2024-02-04] MEDS: SANTYL OINTMENT 1 APPLIC TOPICAL ×2 (10:28→23:03)
[2024-02-04] MEDS: ZINC OXIDE OINTMENT 1 APPLIC TOPICAL (10:29)
[2024-02-04 10:33] LABS: Hematocrit 27.4 % (37.0-47.0); Hemoglobin 8.6 g/dL (12.0-16.0); Mean Corp Hgb Conc. 31.4 g/dL (33.0-37.0); Mean Corpuscular Hgb 31.3 pg (27.0-31.0); Mean Corpuscular Volume 99.6 fL (81.0-99.0); Red Blood Cell Count 2.75 10^6/uL (4.20-5.40); Red Cell Dist. Width 18.4 % (11.5-14.5); White Blood Cell Count 5.6 10^3/uL (4.8-10.8)
[2024-02-04 10:55] LABS: Blood Urea Nitrogen 26 mg/dl (7-17); Calcium 8.1 mg/dl (8.4-10.2); Carbon Dioxide 23 mmol/L (22-30); Chloride 108 mmol/L (98-107); Estimated Creatinine Clearance 61 ml/min; Glucose 118 mg/dl (70-99); LDH 356 U/L (120-246); Potassium 3.2 mmol/L (3.5-5.1); Sodium 139 mmol/L (135-145); Uric Acid 9.4 mg/dl (2.5-6.2); eGFR > 60.00
--- NOTE | 2024-02-04 11:18 | W.PN.ID1 ---
Date of Service
Date of Service: February 04, 2024
Today's Communication
Transition Unasyn 3g IV q6h (d4) to Augmentin 875mg po bid through 02/10/24
Assessment / Plan
# Sacral pressure injury (suspect stage 4) with surrounding cellulitis
- Cellulitis improving.
- Transition Unasyn 3g IV q6h (d4) to Augmentin 875mg po bid through 02/10/24
- Off load sacrum.
# Acute on chronic anemia and thrombocytopenia
- 01/31 s/p bone marrow biopsy
- Pt continues with black tarry stool
# Bacteruria
# urinary retention with chronic patel, changed 01/27.
- Initial Ucx Proteus,Klebsiella.
- Ucx after patel change <80K mixed mark
- No uncommon to have abnormal UA and colonized bacteria in setting of chronic patel.
- Pt asymptomatic, no fever.
- s/p ceftriaxone
#s/p severe hypokalemia
# Conditions VISITING NURSE
CREST syndrome with Lupus/scleroderma overlap
Chronic hypotension on midodrine
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
CKD3
Urinary retention with chronic patel
HFpEF
HTN
Chronic thrombocytopenia
Pulmonary hypertension
PE 2006
IVC filter placement 2007
Bilateral total hip arthroplasty
Hysterectomy
Perineoplasty
Chief Complaint
-: Other (sacral decub)
Subjective / Review of Systems
Feels well today.
Vital Signs / Physical Exam
Vital Signs
Vital Signs
Temp Pulse Resp BP Pulse Ox
97.4 F 109 23 96/57 98
02/04/24 07:00 02/04/24 07:00 02/04/24 07:00 02/04/24 07:00 02/04/24 07:00
Physical Exam
Constitutional: Comfortable
Cardiovascular: Regular Rate
Pulmonary: Clear
Gastrointestinal: Soft, Non Tender and Non Distended
Genito-Urinary: Patel (+ urine leakage, pad soaked) and Clear Urine
Extremities: Edema
Wound: Other (Sacrum wound is packed. Lillian wound erythema decreased. + black tarry stool. Left upper flank with large dark purplish discoloration)
Neurological: Awake and Alert
Objective Data
Lab Data
Lab Results
02/04/24 09:51
02/04/24 09:51
PT 14.2 Sec (11.4-14.6) 02/04/24 09:51
INR 1.07 02/04/24 09:51
APTT 23.9 Sec (23.4-35.0) 02/04/24 09:51
Estimated Creat Clear 61 ml/min 02/04/24 09:51
Total Bilirubin 1.4 mg/dl (0.2-1.3) H 01/29/24 06:06
AST 14 U/L (14-36) 01/29/24 06:06
ALT 19 U/L (0-35) 01/29/24 06:06
Alkaline Phosphatase 204 U/L (38-126) H 01/29/24 06:06
Most recent labs reviewed.
Micro Results:
01/28/24 17:34 Blood Culture - Final
Blood/Venous No Growth - Final Report
01/28/24 17:34 Blood Culture - Final
Blood/Venous No Growth - Final Report
01/28/24 23:12 Urine Culture - Final
Urine
01/28/24 14:07 Urine Culture - Final
Urine Klebsiella pneumoniae
Proteus mirabilis
01/28/24 21:10 MRSA Screen - Final
Nose No Methicillin Resistant Staphylococcus aureus isolated.
01/28/24 CXR: No acute cardiopulmonary process
--- NOTE | 2024-02-04 11:25 | WOUNDNOTE ---
[facility] RN note: Patient has upper outer back bruises and scattered small bruises on her legs suspect r/t thrombocytopenia. Outer labia excoriated suspect r/t moisture. She has a Savage catheter. Calazime ointment being used to fredy excoriations. L groin
small dermal ulcer (POA) suspect from moisture or skin tear. Sacral ulcer with less necrotic tissue. Current wound care appropriate. Fredy care and sacral dressing changed. Patient turned to L semi side lying position with help from CESAR Mathews.
Heels off bed with pillows. Patient is on a Waffle air overlay. She has an air chair cushion. Care plan updated. Will follow as needed.
--- NOTE | 2024-02-04 11:25 | WOUNDNOTE ---
L BACK (OUTER UPPER)
--- NOTE | 2024-02-04 11:25 | WOUNDNOTE ---
R BACK (OUTER UPPER)
[2024-02-04 11:39] LABS: Mean Platelet Volume 12.6 fL (7.4-10.4)
--- NOTE | 2024-02-04 11:40 | W.PN.ONC2 ---
Documented by User: [email or web address] Vega 02/04/24 11:45
Today's Communication / Plan
-
Await marrow results. monitor for bleeding. Transfuse HgB < 7 or PLT < 15K
Impression
Impression
Presented from nursing facility with a syncopal episode
anemia, thrombocytopenia
BMBx flow showed monocytic dysmaturation which I reviewed with pt and awaiting morphology
Sacral pressure injury (suspect stage 4) with surrounding cellulitis
Bacteruria
CREST syndrome with Lupus/scleroderma overlap
PE 2006, IVC filter placement 2007
Plan
Plan
Significant anemia and thrombocytopenia persist, without unifying diagnosis
No iron, B12, or folate deficiency
No evidence for hemolysis. No evidence for plasma cell d/o. No significant findings on flow cytometry.
FOBT likely unreliable in the setting of thrombocytopenia; watch for any signs of GI bleeding.
S/P bone marrow biopsy done as inpatient 01/31 -path pending
abx per ID
Subjective/Objective
Subjective
no new complaints
Vital Signs:
Vital Signs
Temp Pulse Resp BP Pulse Ox
97.4 F 109 23 96/57 98
02/04/24 07:00 02/04/24 07:00 02/04/24 07:00 02/04/24 07:00 02/04/24 07:00
Lab Results:
Laboratory Data
WBC 5.6 10^3/uL (4.8-10.8) 02/04/24 09:51
Hgb 8.6 g/dL (12.0-16.0) L 02/04/24 09:51
Plt Count 14 10^3/uL (130-400) L* D 02/03/24 07:43
PT 14.2 Sec (11.4-14.6) 02/04/24 09:51
INR 1.07 02/04/24 09:51
APTT 23.9 Sec (23.4-35.0) 02/04/24 09:51
eGFR > 60.00 02/04/24 09:51
Physical Exam
DTI sacrum
HEENT: Moist Mucous Membranes
Pulmonary: Other (diminished)
GI: Soft
Extremities: Edema
Orders
Orders
Orders From Last 24 Hours
02/04/24 09:51
Fibrinogen IN AM
LDH IN AM
PT/INR [Prothrombin Time] IN AM
PTT IN AM
Uric Acid IN AM

Documented by User: Adiel Guan MD 02/04/24 12:05
Plan
Plan
Significant anemia and thrombocytopenia persist, without unifying diagnosis
No iron, B12, or folate deficiency
No evidence for hemolysis. No evidence for plasma cell d/o. No significant findings on flow cytometry.
FOBT likely unreliable in the setting of thrombocytopenia; watch for any signs of GI bleeding.
S/P bone marrow biopsy done as inpatient 01/31 -path pending
abx per ID
Hematology Addendum:
Patient seen and evaluate and agree w/ CARD CUTTER note and plan as outlined
-awaiting marrow pathology
-follow CBC and transfuse prn
[2024-02-04 11:41] LABS: % Basophils 0.4 % (0-2); % Immature Granulocytes 2.9 % (0-0.5); % Lymphocytes 1.6 % (20.5-51.1); % Monocytes 3.4 % (1.7-9.3); % Neutrophils 91.7 % (42.2-75.2); Absolute Immature Granulocytes 0.2 10^3/uL (0-0.05); Absolute Lymphocytes 0.1 10^3/uL (1.2-3.4); Absolute Monocytes 0.2 10^3/uL (0.1-0.6); Absolute Neutrophils 5.2 10^3/uL (1.4-6.5); Nucleated Red Blood Cells % 0.7 %; Platelet Count 18 10^3/uL (130-400)
[2024-02-04 12:06] LABS: Fibrinogen 351 MG/DL (199-459)
[2024-02-04] MEDS: AUGMENTIN 875 MG/125 MG 1 TABLET PO ×2 (13:49→22:58)
--- NOTE | 2024-02-04 13:55 | CM ---
delicatessen department manager reviewed patient's chart and spoke with patient and son, Juan this am, human services case manager discussed patient's wound and activity level with admissions at [facility] and they will no accept patient, human services case manager followed up with referral
to [facility] and son has completed financial application and [facility] to check on a bed for patient.
Plan; Skilled placement.
--- NOTE | 2024-02-04 15:51 | W.PN.HOSP.TC ---
Today's Communication/Plan
-
Transfuse platelets
Follow-up bone marrow biopsy.
Diet has been advanced
Monitor CBC and transfuse packed red blood cells and platelets
Transition to oral antibiotics per
Replete potassium.
Replace Savage catheter given the leak.
Transition to oral steroids with prednisone 30 mg daily.
Assessment / Plan
Assessment / Plan
Impression:
Presented from nursing facility with a syncopal episode.
Initial concern for severe sepsis secondary to catheter associated urinary tract infection, ruled out.
Metabolic encephalopathy likely multifactorial
Acute on chronic anemia
Acute on chronic hyponatremia
Severe hypokalemia.
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
Other conditions:
Recent hospitalization with acute gastrointestinal hemorrhage with acute blood loss anemia and hemorrhagic shock.
Chronic diastolic CHF.
Chronic hypotension requiring midodrine.
Anemia of chronic disease.
Chronic thrombocytopenia.
History of DVT PE. [address] with history of thrombosis.
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
Pulmonary hypertension
CKD 3 by history
-S/p renal biopsy complicated with hemorrhage
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
Chronic bladder outlet obstruction requiring indwelling Savage catheter
Plan:
Initial concern for severe sepsis secondary to catheter associated urine tract infection
Repeated urine cultures consistent with contamination
Blood cultures negative to date
Infectious disease input appreciated.
Antibiotics discontinued
Monitor closely
Stage IV sacral pressure wound with cellulitis/osteomyelitis (exposed bone)
Initiated on Unasyn on 01/31 and transition to Augmentin on 02/03
Indwelling Savage catheter.
Leaking.
To be placed on 02/03
Metabolic encephalopathy likely multifactorial in the settings of relative hypotension and anemia
Mental status close to baseline.
MRI of the brain 02/02 with no evidence for acute intracranial abnormality. Moderate atrophy which appears fairly diffuse and slightly advanced for the patient's age.
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
Acute on chronic anemia.
Has a history of acute blood loss over prior admission.
No evidence of overt bleeding since admission.
Hemoglobin trending down 8.3�6.7 at the lowest with appropriate response to transfusion 1 units of packed red blood cells given with hemoglobin at 9.1.
Recent workup for acute anemia with CTA negative for acute blood loss
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
Most likely lower gastrointestinal bleeding in the settings of AVM, severe grade D esophagitis in the settings of chronic thrombocytopenia as well as chronic corticosteroid use
With ongoing melena with concern for slow gastrointestinal hemorrhage
Transfuse to keep hemoglobin above 8�9
Continue IV PPI.
Discussed with gastroenterology. Remains high risk for endoscopy given severe thrombocytopenia
Chronic thrombocytopenia
? If consumptive
Bone marrow biopsy performed on 01/31
Transfuse platelets if count less than 15K
Acute hyponatremia. Improved while off Lasix
Currently off Lasix.
Follow BMP.
If worsening consider further workup with urine osmolarity
TSH within normal limits
Less likely adrenal insufficient
Serum cortisol skewed while on chronic prednisone.
Hypokalemia improved with repletion.
Hyperkalemia potassium up to 5.7 on 01/31 while off Lasix.
Hold potassium supplements
Follow BMP
CKD stage III by history
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
Initiated on corticosteroids prednisone 50 mg daily by nephrology
Given ongoing gastrointestinal hemorrhage and while n.p.o. we will transition to IV hydrocortisone.
Transition back to prednisone at decreased dose at 30 mg a day with slow taper.
Would avoid abrupt discontinuation given risk for adrenal insufficiency
Chronic CHF preserved EF.
Echo 12/15 LVEF 55-60%
Pulmonary hypertension with PAP 52 mmHg.
Consider to resume Lasix if stable hemodynamics and hemoglobin over the next 24 to 48 hours
Continue Revatio
Continue Toprol
Continue midodrine
Scleroderma/lupus/crest overlapping disorder.
Had been on high-dose of prednisone 50 mg daily.
History of DVT/PE
IVC filter in place with thrombosis according to recent imaging.
Not on anticoagulation due to high risk given severe anemia with ongoing gastrointestinal loss as well as thrombocytopenia.
Right hip pain due to chronic right periprosthetic femoral fracture
Recommended conservative management by orthopedics.
Continue Ultram for pain.
Anticipated Discharge: > 48 hours
Subjective/Interval History
-
Date of Service: February 04, 2024
Objective Data
-
Labs:
Laboratory Results
02/04/24
09:51
WBC 5.6
Hgb 8.6 L
Hct 27.4 L
Plt Count 18 L* D
PT 14.2
INR 1.07
APTT 23.9
Sodium 139
Potassium 3.2 L
Chloride 108 H
Carbon Dioxide 23
BUN 26 H
Creatinine 0.7
Glucose 118 H
Calcium 8.1 L
Vital Signs:
Vital Signs
Temp Pulse Resp BP Pulse Ox
98.3 F 106 21 97/57 95
02/04/24 11:00 02/04/24 11:00 02/04/24 11:00 02/04/24 11:00 02/04/24 11:00
I&O
02/03/24 02/04/24 02/05/24
06:59 06:59 06:59
Intake Total 1006 / 1006 582 / 582
Output Total 450 / 450 800 / 800
Balance 556 / 556 -218 / -218
Physical Exam
-
General: Well Developed and No Apparent Distress
HEENT: Normocephalic, Moist Mucous Membranes and Anicteric
Respiratory: Clear to Auscultation
Cardiac: Regular Rhythm and S1/S2
GI: Soft, Nontender, Nondistended and Normal Bowel Sounds
Musculoskeletal: Edema, Right Lower Extrem and Edema, Left Lower Extrem
Skin: Warm and Dry
Neuro: Awake, Alert, Oriented and AO x 3
Psych: Calm
[2024-02-04] MEDS: LIPITOR 10 MG PO (17:52)
[2024-02-04] MEDS: KCL 40 MEQ PO (17:55)
[2024-02-04] MEDS: PEPCID 20 MG PO (22:59)
[2024-02-04] MEDS: TOPROL XL PO (22:59)
[2024-02-04] MEDS: REMERON 7.5 MG PO (23:02)
[2024-02-05] MEDS: ULTRAM 50 MG PO (01:49)
[2024-02-05 03:52] VITALS: BP 101/56
[2024-02-05 07:00] VITALS: BP 98/63
[2024-02-05 07:24] LABS: Hematocrit 23.1 % (37.0-47.0); Hemoglobin 7.6 g/dL (12.0-16.0); Mean Corp Hgb Conc. 32.9 g/dL (33.0-37.0); Mean Corpuscular Hgb 32.2 pg (27.0-31.0); Mean Corpuscular Volume 97.9 fL (81.0-99.0); Red Blood Cell Count 2.36 10^6/uL (4.20-5.40); Red Cell Dist. Width 18.4 % (11.5-14.5); White Blood Cell Count 5.2 10^3/uL (4.8-10.8)
[2024-02-05 07:39] LABS: Blood Urea Nitrogen 22 mg/dl (7-17); Calcium 8.1 mg/dl (8.4-10.2); Carbon Dioxide 26 mmol/L (22-30); Chloride 108 mmol/L (98-107); Estimated Creatinine Clearance 53 ml/min; Glucose 111 mg/dl (70-99); Potassium 3.6 mmol/L (3.5-5.1); Sodium 141 mmol/L (135-145); eGFR > 60.00
[2024-02-05 08:20] LABS: % Basophils 0.2 % (0-2); % Eosinophils 0.4 % (0-6); % Immature Granulocytes 5.2 % (0-0.5); % Lymphocytes 2.5 % (20.5-51.1); % Monocytes 4.5 % (1.7-9.3); % Neutrophils 87.2 % (42.2-75.2); Absolute Immature Granulocytes 0.3 10^3/uL (0-0.05); Absolute Lymphocytes 0.1 10^3/uL (1.2-3.4); Absolute Monocytes 0.2 10^3/uL (0.1-0.6); Absolute Neutrophils 4.5 10^3/uL (1.4-6.5); Mean Platelet Volume 11.5 fL (7.4-10.4); Nucleated Red Blood Cells % 1.4 %; Platelet Count 49 10^3/uL (130-400)
[2024-02-05] MEDS: DELTASONE 30 MG PO (09:51)
[2024-02-05] MEDS: ProAmatine 10 MG PO ×3 (09:51→17:20)
[2024-02-05] MEDS: REVATIO 20 MG PO ×3 (09:51→20:05)
[2024-02-05] MEDS: AUGMENTIN 875 MG/125 MG 1 TABLET PO ×2 (09:51→20:05)
[2024-02-05] MEDS: PROTONIX IV 40 MG IV ×2 (09:52→20:06)
[2024-02-05] MEDS: NSS (PRESERVATIVE FREE) IV ×2 (09:52→20:06)
[2024-02-05] MEDS: NSS (PRESERVATIVE FREE) 10 ML IV ×2 (09:52→20:06)
[2024-02-05] MEDS: SANTYL OINTMENT 1 APPLIC TOPICAL ×2 (09:53→20:07)
[2024-02-05] MEDS: ZINC OXIDE OINTMENT 1 APPLIC TOPICAL (09:54)
[2024-02-05 11:00] VITALS: BP 106/62
--- NOTE | 2024-02-05 13:14 | W.PN.HOSP.TC ---
Today's Communication/Plan
-
Speech and swallow evaluation
Monitor CBC
Follow bone marrow biopsy
Assessment / Plan
Assessment / Plan
Impression:
Presented from nursing facility with a syncopal episode.
Initial concern for severe sepsis secondary to catheter associated urinary tract infection, ruled out.
Metabolic encephalopathy likely multifactorial
Acute on chronic anemia
Acute on chronic hyponatremia
Severe hypokalemia.
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
Other conditions:
Recent hospitalization with acute gastrointestinal hemorrhage with acute blood loss anemia and hemorrhagic shock.
Chronic diastolic CHF.
Chronic hypotension requiring midodrine.
Anemia of chronic disease.
Chronic thrombocytopenia.
History of DVT PE. [address] with history of thrombosis.
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
Pulmonary hypertension
CKD 3 by history
-S/p renal biopsy complicated with hemorrhage
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
Chronic bladder outlet obstruction requiring indwelling Savage catheter
Plan:
Initial concern for severe sepsis secondary to catheter associated urine tract infection
Repeated urine cultures consistent with contamination
Blood cultures negative to date
Infectious disease input appreciated.
Monitor closely
Stage IV sacral pressure wound with cellulitis/osteomyelitis (exposed bone)
Initiated on Unasyn on 01/31 and transition to Augmentin on 02/03
Indwelling Savage catheter.
Initial concern for leak likely from labial pressure wound
Metabolic encephalopathy likely multifactorial in the settings of relative hypotension and anemia
Mental status close to baseline.
MRI of the brain 02/02 with no evidence for acute intracranial abnormality. Moderate atrophy which appears fairly diffuse and slightly advanced for the patient's age.
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
Acute on chronic anemia.
Has a history of acute blood loss over prior admission.
No evidence of overt bleeding since admission.
Hemoglobin trending down 8.3�6.7 at the lowest with appropriate response to transfusion 1 units of packed red blood cells given with hemoglobin at 9.1.
Recent workup for acute anemia with CTA negative for acute blood loss
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
Most likely lower gastrointestinal bleeding in the settings of AVM, severe grade D esophagitis in the settings of chronic thrombocytopenia as well as chronic corticosteroid use
With ongoing melena with concern for slow gastrointestinal hemorrhage
Transfuse to keep hemoglobin above 8�9
Continue IV PPI.
Discussed with gastroenterology. Remains high risk for endoscopy given severe thrombocytopenia
Chronic thrombocytopenia
? If consumptive
Bone marrow biopsy performed on 01/31
Transfuse platelets if count less than 15K
Acute hyponatremia. Improved while off Lasix
Currently off Lasix.
Follow BMP.
If worsening consider further workup with urine osmolarity
TSH within normal limits
Less likely adrenal insufficient
Serum cortisol skewed while on chronic prednisone.
Hypokalemia improved with repletion.
Hyperkalemia potassium up to 5.7 on 01/31 while off Lasix.
Hold potassium supplements
Follow BMP
CKD stage III by history
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
Initiated on corticosteroids prednisone 50 mg daily by nephrology
Given ongoing gastrointestinal hemorrhage and while n.p.o. we will transition to IV hydrocortisone.
Transition back to prednisone at decreased dose at 30 mg a day with slow taper.
Would avoid abrupt discontinuation given risk for adrenal insufficiency
Chronic CHF preserved EF.
Echo 12/15 LVEF 55-60%
Pulmonary hypertension with PAP 52 mmHg.
Consider to resume Lasix if stable hemodynamics and hemoglobin over the next 24 to 48 hours
Continue Revatio
Continue Toprol
Continue midodrine
Scleroderma/lupus/crest overlapping disorder.
Had been on high-dose of prednisone 50 mg daily.
History of DVT/PE
IVC filter in place with thrombosis according to recent imaging.
Not on anticoagulation due to high risk given severe anemia with ongoing gastrointestinal loss as well as thrombocytopenia.
Right hip pain due to chronic right periprosthetic femoral fracture
Recommended conservative management by orthopedics.
Continue Ultram for pain.
Anticipated Discharge: > 48 hours
Subjective/Interval History
-
Date of Service: February 05, 2024
Objective Data
-
Labs:
Laboratory Results
02/05/24
06:18
WBC 5.2
Hgb 7.6 L
Hct 23.1 L
Plt Count 49 L D
Sodium 141
Potassium 3.6
Chloride 108 H
Carbon Dioxide 26
BUN 22 H
Creatinine 0.8
Glucose 111 H
Calcium 8.1 L
Vital Signs:
Vital Signs
Temp Pulse Resp BP Pulse Ox
98.1 F 99 22 106/62 94
02/05/24 07:00 02/05/24 13:06 02/05/24 07:00 02/05/24 13:06 02/05/24 07:00
I&O
02/04/24 02/05/24 02/06/24
06:59 06:59 06:59
Intake Total 582 / 582 1310 / 1790 480 / 480
Output Total 800 / 800 800 / 800
Balance -218 / -218 510 / 990 480 / 480
Physical Exam
-
General: Well Developed and No Apparent Distress
HEENT: Normocephalic, Moist Mucous Membranes and Anicteric
Respiratory: Clear to Auscultation
Cardiac: Regular Rhythm and S1/S2
GI: Soft, Nontender, Nondistended and Normal Bowel Sounds
Musculoskeletal: Edema, Right Lower Extrem and Edema, Left Lower Extrem
Skin: Warm and Dry
Neuro: Awake, Alert, Oriented and AO x 3
Psych: Calm
[2024-02-05 15:00] VITALS: BP 105/65
--- NOTE | 2024-02-05 15:06 | PTOTSP ---
SPEECH THERAPY SWALLOW EVALUATION:
Patient exhibits clinical signs of oropharyngeal dysphagia, likely chronic in patient with multiple predisposing dysphagia risk factors including scleroderma, GERD, suspected dementia, and acutely exacerbated by encephalopathy. Patient remains at
risk for aspiration due to lethargy, confusion, and reported increased size/rate of intake per RN. Patient exhibiting inconsistent signs of aspiration with thin liquids at this time. CXR currently clear, WBC WNL. Recommend Videofluoroscopic
Swallowing Study to further assess swallow function. Recommend diet downgrade to IDDSI Level 6 Soft and Bite size diet, thin liquids via small single cup sips only until VSE. Medications whole in puree. Aspiration and Reflux precautions: 100%
supervision; 1:1 assistance; Small single sips/bites; Slow rate of intake; Upright positioning; Only when awake/alert; Remain upright 30 minutes after eating/drinking; Monitor for signs of aspiration; D/c oral diet if any decline in
mental/respiratory status. ST to follow with additional recommendations following VSE results.
RECOMMEND:
1) Videofluoroscopic Swallowing Study
2) IDDSI Level 6 Soft and Bite size diet, thin liquids via small single cup sips
3) Medications whole in puree
4) Aspiration and Reflux precautions: 100% supervision; 1:1 assistance; Small single sips/bites; Slow rate of intake; Upright positioning; Only when awake/alert; Remain upright 30 minutes after eating/drinking; Monitor for signs of aspiration; D/c
oral diet if any decline in mental/respiratory status
5) ST to follow
[2024-02-05] MEDS: LIPITOR 10 MG PO (17:20)
[2024-02-05 19:00] VITALS: BP 127/69
[2024-02-05] MEDS: PEPCID 20 MG PO (20:05)
[2024-02-05] MEDS: TOPROL XL 12.5 MG PO (21:45)
[2024-02-05] MEDS: REMERON 7.5 MG PO (22:01)
[2024-02-05 23:00] VITALS: BP 120/69
[2024-02-06] VITALS (9 sets, daily range): BP systolic 86–118; BP diastolic 53–79; BMI 25.5
[2024-02-06 05:09] LABS: Blood Urea Nitrogen 20 mg/dl (7-17); Calcium 8.5 mg/dl (8.4-10.2); Carbon Dioxide 23 mmol/L (22-30); Chloride 111 mmol/L (98-107); Estimated Creatinine Clearance 71 ml/min; Glucose 95 mg/dl (70-99); Potassium 3.9 mmol/L (3.5-5.1); Sodium 141 mmol/L (135-145); eGFR > 60.00
[2024-02-06 05:10] LABS: Hematocrit 24.7 % (37.0-47.0); Hemoglobin 7.8 g/dL (12.0-16.0); Mean Corp Hgb Conc. 31.6 g/dL (33.0-37.0); Mean Corpuscular Hgb 31.8 pg (27.0-31.0); Mean Corpuscular Volume 100.8 fL (81.0-99.0); Mean Platelet Volume 11.9 fL (7.4-10.4); Platelet Count 35 10^3/uL (130-400); Red Blood Cell Count 2.45 10^6/uL (4.20-5.40); Red Cell Dist. Width 18.3 % (11.5-14.5); White Blood Cell Count 3.6 10^3/uL (4.8-10.8)
[2024-02-06 09:09] LABS: % Basophils 0.3 % (0-2); % Immature Granulocytes 3.9 % (0-0.5); % Lymphocytes 4.7 % (20.5-51.1); % Monocytes 4.5 % (1.7-9.3); % Neutrophils 86.6 % (42.2-75.2); Absolute Immature Granulocytes 0.1 10^3/uL (0-0.05); Absolute Lymphocytes 0.2 10^3/uL (1.2-3.4); Absolute Monocytes 0.2 10^3/uL (0.1-0.6); Absolute Neutrophils 3.1 10^3/uL (1.4-6.5); Nucleated Red Blood Cells % 0.6 %
[2024-02-06] MEDS: NSS (PRESERVATIVE FREE) IV ×2 (09:17→20:12)
[2024-02-06] MEDS: AUGMENTIN 875 MG/125 MG 1 TABLET PO ×2 (09:52→20:07)
[2024-02-06] MEDS: ProAmatine 10 MG PO ×3 (09:52→17:46)
[2024-02-06] MEDS: REVATIO 20 MG PO ×2 (09:53→15:27)
[2024-02-06] MEDS: PROTONIX IV 40 MG IV ×2 (09:53→20:07)
[2024-02-06] MEDS: NSS (PRESERVATIVE FREE) 10 ML IV ×2 (09:53→20:07)
[2024-02-06] MEDS: DELTASONE 30 MG PO (09:53)
--- NOTE | 2024-02-06 12:42 | W.PN.ONC2 ---
Today's Communication / Plan
-
- counts remain low however stable. CBC daily.
- marrow flow suggestive for possible MDS/CMML however await final results.
Impression
Impression
Presented from nursing facility with a syncopal episode
anemia, thrombocytopenia
BMBx flow showed monocytic dysmaturation which I reviewed with pt and awaiting morphology
Sacral pressure injury (suspect stage 4) with surrounding cellulitis
Bacteruria
CREST syndrome with Lupus/scleroderma overlap
PE 2006, IVC filter placement 2007
Plan
Plan
Significant anemia and thrombocytopenia persist, without unifying diagnosis
No iron, B12, or folate deficiency
No evidence for hemolysis. No evidence for plasma cell d/o. No significant findings on flow cytometry.
FOBT likely unreliable in the setting of thrombocytopenia; watch for any signs of GI bleeding.
S/P bone marrow biopsy done as inpatient 01/31 - flow showed monocytic dysmaturation possibly representing MDS/CMML however more acute process cannot be ruled out. await final path however refused prelim findings with pt today.
counts overall stable today. CBC daily. transfuse for hgb < 7.0, plts < 10K.
abx per ID
Subjective/Objective
Chief Complaint
cytopenias, weakness
Subjective
pt has no new complaints this am. denies fevers, chills, SOB, abdominal pain. Appetite good.
Vital Signs:
Vital Signs
Temp Pulse Resp BP Pulse Ox
97.5 F 98 16 106/74 94
02/06/24 07:39 02/06/24 07:39 02/06/24 07:39 02/06/24 07:39 02/06/24 07:39
Lab Results:
Laboratory Data
WBC 3.6 10^3/uL (4.8-10.8) L 02/06/24 04:27
Hgb 7.8 g/dL (12.0-16.0) L 02/06/24 04:27
Plt Count 35 10^3/uL (130-400) L D 02/06/24 04:27
PT 14.2 Sec (11.4-14.6) 02/04/24 09:51
INR 1.07 02/04/24 09:51
APTT 23.9 Sec (23.4-35.0) 02/04/24 09:51
eGFR > 60.00 02/06/24 04:27
Physical Exam
HEENT: Moist Mucous Membranes; No Jaundice
Cardiology: Normal Sinus Rhythm
Pulmonary: Rhonchi
GI: Soft; No Distended
Extremities: No Edema
Neuro: Non Focal
Review of Systems
Review of Systems
Constitutional: Reports Fatigue; Denies Fever
Respiratory: Denies Dyspnea or Cough
Cardiovascular: Denies Chest Pain
Gastrointestinal: Denies Nausea/Vomiting
Skin: Denies Rash
Neurological: Denies Headache
Hem/Lymphatic: Denies Easy Bruising
[2024-02-06] MEDS: ULTRAM 50 MG PO (13:40)
--- NOTE | 2024-02-06 14:07 | W.PN.HOSP.TC ---
Today's Communication/Plan
-
Goals of care discussion with patient daughter and son over the phone.
Patient with multiple medical condition not limited to scleroderma, severe anemia and thrombocytopenia requiring transfusions, overall progressive declining including cognitive status. Currently bedbound with pressure wounds. Addressed possibility
of further unfavorable clinical course with possible complications not limited to sepsis, aspiration, life-threatening hemorrhage. Family to discuss further options including palliative approach.
Transfuse packed red blood cells
Single dose of IV Lasix with transfusion
Assessment / Plan
Assessment / Plan
Impression:
Presented from nursing facility with a syncopal episode.
Initial concern for severe sepsis secondary to catheter associated urinary tract infection, ruled out.
Metabolic encephalopathy likely multifactorial
Acute on chronic anemia
Acute on chronic hyponatremia
Severe hypokalemia.
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
Other conditions:
Recent hospitalization with acute gastrointestinal hemorrhage with acute blood loss anemia and hemorrhagic shock.
Chronic diastolic CHF.
Chronic hypotension requiring midodrine.
Anemia of chronic disease.
Chronic thrombocytopenia.
History of DVT PE. [address] with history of thrombosis.
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
Pulmonary hypertension
CKD 3 by history
-S/p renal biopsy complicated with hemorrhage
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
Chronic bladder outlet obstruction requiring indwelling Savage catheter
Plan:
Initial concern for severe sepsis secondary to catheter associated urine tract infection
Repeated urine cultures consistent with contamination
Blood cultures negative to date
Infectious disease input appreciated.
Monitor closely
Stage IV sacral pressure wound with cellulitis/osteomyelitis (exposed bone)
Initiated on Unasyn on 01/31 and transition to Augmentin on 02/03
Indwelling Savage catheter.
Initial concern for leak likely from labial pressure wound
Metabolic encephalopathy likely multifactorial in the settings of relative hypotension and anemia
Mental status close to baseline.
MRI of the brain 02/02 with no evidence for acute intracranial abnormality. Moderate atrophy which appears fairly diffuse and slightly advanced for the patient's age.
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
Acute on chronic anemia.
Has a history of acute blood loss over prior admission.
No evidence of overt bleeding since admission.
Hemoglobin trending down 8.3�6.7 at the lowest with appropriate response to transfusion 1 units of packed red blood cells given with hemoglobin at 9.1.
Recent workup for acute anemia with CTA negative for acute blood loss
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
Most likely lower gastrointestinal bleeding in the settings of AVM, severe grade D esophagitis in the settings of chronic thrombocytopenia as well as chronic corticosteroid use
With ongoing melena with concern for slow gastrointestinal hemorrhage
Transfuse to keep hemoglobin above 8�9
Continue IV PPI.
Discussed with gastroenterology. Remains high risk for endoscopy given severe thrombocytopenia
Chronic thrombocytopenia
? If consumptive
Bone marrow biopsy performed on 01/31. 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
Transfuse platelets if count less than 15K
Acute hyponatremia. Improved while off Lasix
Currently off Lasix.
Follow BMP.
If worsening consider further workup with urine osmolarity
TSH within normal limits
Less likely adrenal insufficient
Serum cortisol skewed while on chronic prednisone.
Hypokalemia improved with repletion.
Hyperkalemia potassium up to 5.7 on 01/31 while off Lasix.
Hold potassium supplements
Follow BMP
CKD stage III by history
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
Initiated on corticosteroids prednisone 50 mg daily by nephrology
Given ongoing gastrointestinal hemorrhage and while n.p.o. we will transition to IV hydrocortisone.
Transition back to prednisone at decreased dose at 30 mg a day with slow taper.
Would avoid abrupt discontinuation given risk for adrenal insufficiency
Chronic CHF preserved EF.
Echo 12/15 LVEF 55-60%
Pulmonary hypertension with PAP 52 mmHg.
Consider to resume Lasix if stable hemodynamics and hemoglobin over the next 24 to 48 hours
Continue Revatio
Continue Toprol
Continue midodrine
Scleroderma/lupus/crest overlapping disorder.
Had been on high-dose of prednisone 50 mg daily.
History of DVT/PE
IVC filter in place with thrombosis according to recent imaging.
Not on anticoagulation due to high risk given severe anemia with ongoing gastrointestinal loss as well as thrombocytopenia.
Right hip pain due to chronic right periprosthetic femoral fracture
Recommended conservative management by orthopedics.
Continue Ultram for pain.
Full code
Goals of care discussion with patient daughter and son over the phone.
Patient with multiple medical condition not limited to scleroderma, severe anemia and thrombocytopenia requiring transfusions, overall progressive declining including cognitive status. Currently bedbound with pressure wounds. Addressed possibility
of further unfavorable clinical course with possible complications not limited to sepsis, aspiration, life-threatening hemorrhage. Family to discuss further options including palliative approach.
Anticipated Discharge: > 48 hours
Subjective/Interval History
-
Date of Service: February 06, 2024
Objective Data
-
Labs:
Laboratory Results
02/06/24
04:27
WBC 3.6 L
Hgb 7.8 L
Hct 24.7 L
Plt Count 35 L D
Sodium 141
Potassium 3.9
Chloride 111 H
Carbon Dioxide 23
BUN 20 H
Creatinine 0.6
Glucose 95
Calcium 8.5
Vital Signs:
Vital Signs
Temp Pulse Resp BP Pulse Ox
98.0 F 100 20 93/58 100
02/06/24 13:14 02/06/24 13:14 02/06/24 13:14 02/06/24 13:14 02/06/24 13:14
I&O
02/05/24 02/06/24 02/07/24
06:59 06:59 06:59
Intake Total 1310 / 2270 1200 / 1200 60 / 60
Output Total 800 / 1050 725 / 725
Balance 510 / 1220 475 / 475 60 / 60
Physical Exam
-
General: Well Developed and No Apparent Distress
HEENT: Normocephalic, Moist Mucous Membranes and Anicteric
Respiratory: Clear to Auscultation
Cardiac: Regular Rhythm and S1/S2
GI: Soft, Nontender, Nondistended and Normal Bowel Sounds
Musculoskeletal: Edema, Right Lower Extrem and Edema, Left Lower Extrem
Skin: Warm and Dry
Neuro: Awake, Alert, Oriented and AO x 3
Psych: Calm
[2024-02-06] MEDS: ZINC OXIDE OINTMENT 1 APPLIC TOPICAL (15:17)
[2024-02-06] MEDS: SANTYL OINTMENT 1 APPLIC TOPICAL ×2 (15:17→20:06)
[2024-02-06] MEDS: LASIX 20 MG IV (15:27)
[2024-02-06] MEDS: LIPITOR 10 MG PO (17:46)
[2024-02-07] MEDS: PEPCID 20 MG PO ×2 (00:04→21:08)
[2024-02-07] MEDS: REMERON 7.5 MG PO ×2 (00:05→21:11)
[2024-02-07] MEDS: REVATIO 20 MG PO ×4 (00:05→21:08)
[2024-02-07] MEDS: TOPROL XL 12.5 MG PO ×2 (00:06→21:09)
[2024-02-07 03:21] VITALS: BP 100/59
[2024-02-07 07:30] VITALS: BP 126/72
[2024-02-07 07:57] LABS: % Basophils 0.4 % (0-2); % Eosinophils 0.4 % (0-6); % Lymphocytes 5.4 % (20.5-51.1); % Neutrophils 84.8 % (42.2-75.2); Absolute Immature Granulocytes 0.1 10^3/uL (0-0.05); Absolute Lymphocytes 0.2 10^3/uL (1.2-3.4); Absolute Monocytes 0.1 10^3/uL (0.1-0.6); Absolute Neutrophils 2.4 10^3/uL (1.4-6.5); Hematocrit 28.2 % (37.0-47.0); Hemoglobin 9.3 g/dL (12.0-16.0); Mean Corpuscular Hgb 31.8 pg (27.0-31.0); Mean Corpuscular Volume 96.6 fL (81.0-99.0); Nucleated Red Blood Cells % 0.7 %; Platelet Count 22 10^3/uL (130-400); Red Blood Cell Count 2.92 10^6/uL (4.20-5.40); Red Cell Dist. Width 18.6 % (11.5-14.5); White Blood Cell Count 2.8 10^3/uL (4.8-10.8)
[2024-02-07 08:11] LABS: Blood Urea Nitrogen 17 mg/dl (7-17); Calcium 8.5 mg/dl (8.4-10.2); Carbon Dioxide 30 mmol/L (22-30); Chloride 102 mmol/L (98-107); Estimated Creatinine Clearance 61 ml/min; Glucose 82 mg/dl (70-99); Potassium 3.4 mmol/L (3.5-5.1); Sodium 139 mmol/L (135-145); eGFR > 60.00
[2024-02-07] MEDS: NSS (PRESERVATIVE FREE) IV ×2 (09:59→20:50)
[2024-02-07] MEDS: PROTONIX IV 40 MG IV ×2 (10:06→20:50)
[2024-02-07] MEDS: NSS (PRESERVATIVE FREE) 10 ML IV ×2 (10:06→20:49)
[2024-02-07] MEDS: AUGMENTIN 875 MG/125 MG 1 TABLET PO ×2 (10:07→20:48)
[2024-02-07] MEDS: ProAmatine PO (10:07)
[2024-02-07] MEDS: DELTASONE 30 MG PO (10:07)
[2024-02-07 10:35] VITALS: BMI 25.9
--- NOTE | 2024-02-07 11:03 | CM ---
CM reviewed chart and pt with [facility]
Pt has been financially accepted for LTC but no bed available in the near future
Pt on waitlist for long-term bed
Call with son/Juan
He is in agreement with large net of referrals for add'l SNFs
Requesting 4-5 start facilities within the [facility]
PASRR completed and referrals sent via [facility]- pending
Son is hopeful for some skilled time before private pay begins
LT plan is for transfer to [facility] once bed available
Discharge Disposition- SNF
[2024-02-07 11:13] VITALS: BP 102/63
[2024-02-07] MEDS: ProAmatine 10 MG PO ×2 (12:27→18:06)
[2024-02-07] MEDS: KCL ELIXIR 40 MEQ PO (12:27)
[2024-02-07] MEDS: ROBITUSSIN AC 5 ML PO (12:27)
--- NOTE | 2024-02-07 14:56 | W.PN.HOSP.TC ---
Today's Communication/Plan
-
Monitor CBC transfuse packed red blood cells and platelets as needed.
Pending bone marrow pathology.
Antibiotics as per ID.
Hold standing Lasix monitoring oral intake and volume status closely.
Ongoing goals of care discussions per
Eventually placement to alf facility.
Assessment / Plan
Assessment / Plan
Impression:
Presented from nursing facility with a syncopal episode.
Initial concern for severe sepsis secondary to catheter associated urinary tract infection, ruled out.
Metabolic encephalopathy likely multifactorial
Acute on chronic anemia
Acute on chronic hyponatremia
Severe hypokalemia.
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
Other conditions:
Recent hospitalization with acute gastrointestinal hemorrhage with acute blood loss anemia and hemorrhagic shock.
Chronic diastolic CHF.
Chronic hypotension requiring midodrine.
Anemia of chronic disease.
Chronic thrombocytopenia.
History of DVT PE. [address] with history of thrombosis.
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
Pulmonary hypertension
CKD 3 by history
-S/p renal biopsy complicated with hemorrhage
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
Chronic bladder outlet obstruction requiring indwelling Savage catheter
Plan:
Initial concern for severe sepsis secondary to catheter associated urine tract infection
Repeated urine cultures consistent with contamination
Blood cultures negative to date
Infectious disease input appreciated.
Monitor closely
Stage IV sacral pressure wound with cellulitis/osteomyelitis (exposed bone)
Initiated on Unasyn on 01/31 and transition to Augmentin on 02/03
Indwelling Savage catheter.
Initial concern for leak likely from labial pressure wound
Metabolic encephalopathy likely multifactorial in the settings of relative hypotension and anemia
Mental status close to baseline.
MRI of the brain 02/02 with no evidence for acute intracranial abnormality. Moderate atrophy which appears fairly diffuse and slightly advanced for the patient's age.
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
Acute on chronic anemia.
Has a history of acute blood loss over prior admission.
No evidence of overt bleeding since admission.
Hemoglobin trending down 8.3�6.7 at the lowest with appropriate response to transfusion 1 units of packed red blood cells given with hemoglobin at 9.1.
Recent workup for acute anemia with CTA negative for acute blood loss
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
Most likely lower gastrointestinal bleeding in the settings of AVM, severe grade D esophagitis in the settings of chronic thrombocytopenia as well as chronic corticosteroid use
With ongoing melena with concern for slow gastrointestinal hemorrhage
Transfuse to keep hemoglobin above 8�9
Continue IV PPI.
Discussed with gastroenterology. Remains high risk for endoscopy given severe thrombocytopenia
Chronic thrombocytopenia
? If consumptive
Bone marrow biopsy performed on 01/31. 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
Transfuse platelets if count less than 15K
Acute hyponatremia. Improved while off Lasix
Currently off Lasix.
Follow BMP.
If worsening consider further workup with urine osmolarity
TSH within normal limits
Less likely adrenal insufficient
Serum cortisol skewed while on chronic prednisone.
Hypokalemia improved with repletion.
Hyperkalemia potassium up to 5.7 on 01/31 while off Lasix.
Hold potassium supplements
Follow BMP
CKD stage III by history
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
Initiated on corticosteroids prednisone 50 mg daily by nephrology
Given ongoing gastrointestinal hemorrhage and while n.p.o. we will transition to IV hydrocortisone.
Transition back to prednisone at decreased dose at 30 mg a day with slow taper.
Would avoid abrupt discontinuation given risk for adrenal insufficiency
Chronic CHF preserved EF.
Echo 12/15 LVEF 55-60%
Pulmonary hypertension with PAP 52 mmHg.
Consider to resume Lasix if stable hemodynamics and hemoglobin over the next 24 to 48 hours
Continue Revatio
Continue Toprol
Continue midodrine
Scleroderma/lupus/crest overlapping disorder.
Had been on high-dose of prednisone 50 mg daily.
History of DVT/PE
IVC filter in place with thrombosis according to recent imaging.
Not on anticoagulation due to high risk given severe anemia with ongoing gastrointestinal loss as well as thrombocytopenia.
Right hip pain due to chronic right periprosthetic femoral fracture
Recommended conservative management by orthopedics.
Continue Ultram for pain.
Full code
Goals of care discussion with patient daughter and son over the phone.
Patient with multiple medical condition not limited to scleroderma, severe anemia and thrombocytopenia requiring transfusions, overall progressive declining including cognitive status. Currently bedbound with pressure wounds. Addressed possibility
of further unfavorable clinical course with possible complications not limited to sepsis, aspiration, life-threatening hemorrhage. Family to discuss further options including palliative approach.
Anticipated Discharge: 24 - 48 hours
Subjective/Interval History
-
Date of Service: February 07, 2024
Objective Data
-
Labs:
Laboratory Results
02/07/24
07:12
WBC 2.8 L
Hgb 9.3 L
Hct 28.2 L
Plt Count 22 L* D
Sodium 139
Potassium 3.4 L
Chloride 102
Carbon Dioxide 30
BUN 17
Creatinine 0.7
Glucose 82
Calcium 8.5
Vital Signs:
Vital Signs
Temp Pulse Resp BP Pulse Ox
98.1 F 86 18 102/63 96
02/07/24 11:13 02/07/24 11:13 02/07/24 11:13 02/07/24 11:13 02/07/24 11:13
I&O
02/06/24 02/07/24 02/08/24
06:59 06:59 06:59
Intake Total 1200 / 1200 670 / 670
Output Total 725 / 725 1300 / 1300
Balance 475 / 475 -630 / -630
Physical Exam
-
General: Well Developed and No Apparent Distress
HEENT: Normocephalic, Moist Mucous Membranes and Anicteric
Respiratory: Clear to Auscultation
Cardiac: Regular Rhythm and S1/S2
GI: Soft, Nontender, Nondistended and Normal Bowel Sounds
Musculoskeletal: Edema, Right Lower Extrem and Edema, Left Lower Extrem
Skin: Warm and Dry
Neuro: Awake, Alert, Oriented and AO x 3
Psych: Calm
[2024-02-07 15:18] VITALS: BP 103/69
--- NOTE | 2024-02-07 16:17 | W.PN.ONC2 ---
Today's Communication / Plan
-
follow for path
Impression
Impression
Presented from nursing facility with a syncopal episode
anemia, thrombocytopenia
BMBx flow showed monocytic dysmaturation which I reviewed with pt and awaiting morphology
Sacral pressure injury (suspect stage 4) with surrounding cellulitis
Bacteruria
CREST syndrome with Lupus/scleroderma overlap
PE 2006, IVC filter placement 2007
Plan
Plan
Significant anemia and thrombocytopenia persist, without unifying diagnosis
No iron, B12, or folate deficiency
No evidence for hemolysis. No evidence for plasma cell d/o. No significant findings on flow cytometry.
FOBT likely unreliable in the setting of thrombocytopenia; watch for any signs of GI bleeding.
S/P bone marrow biopsy done as inpatient 01/31 - showed monocytic dysmaturation possibly representing MDS/CMML however more acute process cannot be ruled out. await final path however refused prelim findings with pt today.
counts overall stable today. CBC daily. transfuse for hgb < 7.0, plts < 10K.
abx per ID
Subjective/Objective
Subjective
no new complaints
Vital Signs:
Vital Signs
Temp Pulse Resp BP Pulse Ox
97.8 F 88 20 103/69 95
02/07/24 15:18 02/07/24 15:18 02/07/24 15:18 02/07/24 15:18 02/07/24 15:18
Lab Results:
Laboratory Data
WBC 2.8 10^3/uL (4.8-10.8) L 02/07/24 07:12
Hgb 9.3 g/dL (12.0-16.0) L 02/07/24 07:12
Plt Count 22 10^3/uL (130-400) L* D 02/07/24 07:12
PT 14.2 Sec (11.4-14.6) 12/13/24 09:51
INR 1.07 02/04/24 09:51
APTT 23.9 Sec (23.4-35.0) 02/04/24 09:51
eGFR > 60.00 02/07/24 07:12
[2024-02-07] MEDS: SANTYL OINTMENT 1 APPLIC TOPICAL ×2 (16:44→20:50)
[2024-02-07] MEDS: ZINC OXIDE OINTMENT 1 APPLIC TOPICAL (16:45)
[2024-02-07] MEDS: LIPITOR 10 MG PO (18:06)
[2024-02-07] MEDS: LASIX 20 MG IV (18:07)
[2024-02-07 19:18] VITALS: BP 104/68
[2024-02-07 23:13] VITALS: BP 108/60
[2024-02-08] VITALS (11 sets, daily range): BP systolic 86–128; BP diastolic 55–83; PULSE 118–152; O2SAT 96; BMI 25.0
[2024-02-08 08:26] LABS: Hematocrit 28.8 % (37.0-47.0); Hemoglobin 9.4 g/dL (12.0-16.0); Mean Corp Hgb Conc. 32.6 g/dL (33.0-37.0); Red Blood Cell Count 2.94 10^6/uL (4.20-5.40); Red Cell Dist. Width 18.1 % (11.5-14.5)
[2024-02-08 08:37] LABS: Blood Urea Nitrogen 13 mg/dl (7-17); Calcium 8.5 mg/dl (8.4-10.2); Carbon Dioxide 33 mmol/L (22-30); Estimated Creatinine Clearance 71 ml/min; Glucose 82 mg/dl (70-99); Potassium 3.2 mmol/L (3.5-5.1); Sodium 141 mmol/L (135-145); eGFR > 60.00
[2024-02-08 08:49] LABS: Platelet Count 14 10^3/uL (130-400); White Blood Cell Count 2.2 10^3/uL (4.8-10.8)
[2024-02-08] MEDS: SANTYL OINTMENT 1 APPLIC TOPICAL ×2 (08:49→20:32)
[2024-02-08] MEDS: AUGMENTIN 875 MG/125 MG 1 TABLET PO ×2 (08:49→20:51)
[2024-02-08] MEDS: DELTASONE 30 MG PO (08:50)
[2024-02-08] MEDS: ProAmatine PO ×2 (08:50→17:12)
[2024-02-08] MEDS: PROTONIX IV 40 MG IV ×2 (08:51→20:56)
[2024-02-08] MEDS: NSS (PRESERVATIVE FREE) 10 ML IV ×2 (08:51→20:52)
[2024-02-08] MEDS: REVATIO 20 MG PO ×3 (08:51→21:13)
[2024-02-08 08:54] LABS: Chloride 102 mmol/L (98-107)
[2024-02-08] MEDS: ZINC OXIDE OINTMENT 1 APPLIC TOPICAL (08:56)
[2024-02-08 08:59] LABS: % Basophils 0.9 % (0-2); % Immature Granulocytes 1.3 % (0-0.5); % Lymphocytes 4.9 % (20.5-51.1); % Monocytes 4.5 % (1.7-9.3); % Neutrophils 88.4 % (42.2-75.2); Absolute Lymphocytes 0.1 10^3/uL (1.2-3.4); Absolute Monocytes 0.1 10^3/uL (0.1-0.6); Nucleated Red Blood Cells % 0 %
[2024-02-08] MEDS: NSS (PRESERVATIVE FREE) IV ×2 (09:05→20:56)
--- NOTE | 2024-02-08 09:17 | PTCARENOTE ---
patient has critical lab results, WBC 2.2 and PLT 14, MD Davis notified. will continue to monitor.
--- NOTE | 2024-02-08 09:24 | W.PN.ONC2 ---
Today's Communication / Plan
-
I had a conference call with Jaz, pt adult children to discuss GOC -we reviewed that with hematologic bone marrow diagnosis to expect chronic cytopenias and transfusion dependence. PS precludes antineoplastic treatment. We reviewed
palliative and comfort focused care. If goals remain restorative will need to optimize PS to ambulatory status.
If discharged with restorative goals or would like to continue best supportive care with transfusion support then would involve palliative care at discharge
daily CBC with diff, transfuse prn
Impression
Impression
Presented from nursing facility with a syncopal episode
anemia, thrombocytopenia
BMBx flow showed monocytic dysmaturation possibly representing MDS/CMML however more acute process cannot be ruled out
Sacral pressure injury (suspect stage 4) with surrounding cellulitis
Bacteruria -Kleb pnumoniae
CREST syndrome with Lupus/scleroderma overlap
PE 2006, IVC filter placement 2007
C. diff antigen positive, toxin negative 02/06
Plan
Plan
Significant anemia and thrombocytopenia persist, without unifying diagnosis
No iron, B12, or folate deficiency
No evidence for hemolysis. No evidence for plasma cell d/o.
FOBT likely unreliable in the setting of thrombocytopenia; watch for any signs of GI bleeding.
S/P bone marrow biopsy done as inpatient 01/31 - await final path
counts overall stable today. CBC daily. transfuse for hgb < 7.0, plts < 10K.
abx per ID
Subjective/Objective
Subjective
no new complaints
Vital Signs:
Vital Signs
Temp Pulse Resp BP Pulse Ox
97.9 F 103 18 118/55 92
02/08/24 07:33 02/08/24 07:33 02/08/24 07:33 02/08/24 08:50 02/08/24 07:33
Lab Results:
Laboratory Data
WBC 2.2 10^3/uL (4.8-10.8) L* 12/17/24 07:29
Hgb 9.4 g/dL (12.0-16.0) L 02/08/24 07:29
Plt Count 14 10^3/uL (130-400) L* D 02/08/24 07:29
PT 14.2 Sec (11.4-14.6) 02/04/24 09:51
INR 1.07 02/04/24 09:51
APTT 23.9 Sec (23.4-35.0) 02/04/24 09:51
eGFR > 60.00 02/08/24 07:29
Physical Exam
DTI sacrum
HEENT: Moist Mucous Membranes
Pulmonary: Other (diminished)
GI: Soft
Extremities: Edema
[2024-02-08] MEDS: ProAmatine 10 MG PO (12:01)
--- NOTE | 2024-02-08 13:00 | PTOTSP ---
Speech Language Pathology
VIDEOFLUOROSCOPIC SWALLOWING EXAMINATION (VSE) completed. Overall, pt with mild oral and mod pharyngeal dysphagia. Penetration noted with all consistencies other than regular solids, at times to level of vocal folds. Pt also with significant
pharyngeal residue.
Recommend:
(1) Downgrade to IDDSI Level 5 (minced/moist) and thin liquids
(2) Aspiration precautions: sit upright, slow rate, single cup sips, intermittent throat clear/reswallow
(3) Meds whole in puree
(4) TREASURY ACCOUNTANT to continue to follow
--- NOTE | 2024-02-08 13:02 | W.PN.ID1 ---
Date of Service
Date of Service: February 08, 2024
Today's Communication
Continue Augmentin 875mg po bid through 02/10/24
Assessment / Plan
# Sacral pressure injury (suspect stage 4) with surrounding cellulitis
- Continue Augmentin 875mg po bid through 02/10/24
- Off load sacrum.
# Chronic anemia and thrombocytopenia, transfusion dependent
# Now leukopenia
- 01/31 s/p bone marrow biopsy
- Hem-Onc discussed GOC with family
# C diff colonization
- C. diff ag+, toxin -
- No diarrhea
# Bacteruria
# urinary retention with chronic patel, changed 01/27.
- Initial Ucx Proteus,Klebsiella.
- Ucx after patel change <80K mixed mark
- No uncommon to have abnormal UA and colonized bacteria in setting of chronic patel.
- Pt asymptomatic, no fever.
- s/p ceftriaxone
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
CREST syndrome with Lupus/scleroderma overlap
Chronic hypotension on midodrine
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
CKD3
Urinary retention with chronic patel
HFpEF
HTN
Chronic thrombocytopenia
Pulmonary hypertension
PE 2006
IVC filter placement 2007
Bilateral total hip arthroplasty
Hysterectomy
Perineoplasty
Chief Complaint
-: Other (sacral decub)
Subjective / Review of Systems
No specific issues.
Vital Signs / Physical Exam
Vital Signs
Vital Signs
Temp Pulse Resp BP Pulse Ox
98.3 F 108 18 110/73 94
02/08/24 11:33 02/08/24 11:33 02/08/24 11:33 02/08/24 12:01 02/08/24 11:33
Physical Exam
Constitutional: Chronically Ill
Eyes: Sclera Anicteric
Pulmonary: Clear (anteriorly)
Gastrointestinal: Soft, Non Tender, Non Distended and Normal Bowel Sounds
Genito-Urinary: Patel
Extremities: Edema
Objective Data
Lab Data
Lab Results
02/08/24 07:29
02/08/24 07:29
PT 14.2 Sec (11.4-14.6) 02/04/24 09:51
INR 1.07 02/04/24 09:51
APTT 23.9 Sec (23.4-35.0) 02/04/24 09:51
Estimated Creat Clear 71 ml/min 02/08/24 07:29
Total Bilirubin 1.4 mg/dl (0.2-1.3) H 01/29/24 06:06
AST 14 U/L (14-36) 01/29/24 06:06
ALT 19 U/L (0-35) 01/29/24 06:06
Alkaline Phosphatase 204 U/L (38-126) H 01/29/24 06:06
Most recent labs reviewed.
Micro Results:
02/06/24 16:43 C. difficile GDH Antigen & Toxins - Final
Feces/Stool C. difficile antigen positive, toxin negative.
Clostridium difficile present, but toxin not detected.
Patient may be a carrier, colonized with nontoxinogenic
strain or the level of toxin in sample is below detection
limits. This information should be used in conjunction with
the patient's clinical history.
01/28/24 17:34 Blood Culture - Final
Blood/Venous No Growth - Final Report
01/28/24 17:34 Blood Culture - Final
Blood/Venous No Growth - Final Report
01/28/24 23:12 Urine Culture - Final
Urine
01/28/24 14:07 Urine Culture - Final
Urine Klebsiella pneumoniae
Proteus mirabilis
01/28/24 21:10 MRSA Screen - Final
Nose No Methicillin Resistant Staphylococcus aureus isolated.
01/28/24 CXR: No acute cardiopulmonary process
[2024-02-08] MEDS: LIPITOR 10 MG PO (17:14)
--- NOTE | 2024-02-08 17:37 | W.PN.HOSP.TC ---
Today's Communication/Plan
-
Transfuse.
Oral antibiotics
Wound care.
Goals of care discussion
Assessment / Plan
Assessment / Plan
Impression:
Presented from nursing facility with a syncopal episode.
Initial concern for severe sepsis secondary to catheter associated urinary tract infection, ruled out.
Metabolic encephalopathy likely multifactorial
Acute on chronic anemia
Acute on chronic hyponatremia
Severe hypokalemia.
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
Other conditions:
Recent hospitalization with acute gastrointestinal hemorrhage with acute blood loss anemia and hemorrhagic shock.
Chronic diastolic CHF.
Chronic hypotension requiring midodrine.
Anemia of chronic disease.
Chronic thrombocytopenia.
History of DVT PE. [address] with history of thrombosis.
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
Pulmonary hypertension
CKD 3 by history
-S/p renal biopsy complicated with hemorrhage
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
Chronic bladder outlet obstruction requiring indwelling Savage catheter
Plan:
Initial concern for severe sepsis secondary to catheter associated urine tract infection
Repeated urine cultures consistent with contamination
Blood cultures negative to date
Infectious disease input appreciated.
Monitor closely
Stage IV sacral pressure wound with cellulitis/osteomyelitis (exposed bone)
Initiated on Unasyn on 01/31 and transition to Augmentin on 02/03
Indwelling Savage catheter.
Initial concern for leak likely from labial pressure wound
Metabolic encephalopathy likely multifactorial in the settings of relative hypotension and anemia
Mental status close to baseline.
MRI of the brain 02/02 with no evidence for acute intracranial abnormality. Moderate atrophy which appears fairly diffuse and slightly advanced for the patient's age.
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
Acute on chronic anemia.
Has a history of acute blood loss over prior admission.
No evidence of overt bleeding since admission.
Hemoglobin trending down 8.3�6.7 at the lowest with appropriate response to transfusion 1 units of packed red blood cells given with hemoglobin at 9.1.
Recent workup for acute anemia with CTA negative for acute blood loss
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
Most likely lower gastrointestinal bleeding in the settings of AVM, severe grade D esophagitis in the settings of chronic thrombocytopenia as well as chronic corticosteroid use
With ongoing melena with concern for slow gastrointestinal hemorrhage
Transfuse to keep hemoglobin above 8�9
Continue IV PPI.
Discussed with gastroenterology. Remains high risk for endoscopy given severe thrombocytopenia
Chronic thrombocytopenia
? If consumptive
Bone marrow biopsy performed on 01/31. 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
Transfuse platelets if count less than 15K
Acute hyponatremia. Improved while off Lasix
Currently off Lasix.
Follow BMP.
If worsening consider further workup with urine osmolarity
TSH within normal limits
Less likely adrenal insufficient
Serum cortisol skewed while on chronic prednisone.
Hypokalemia improved with repletion.
Hyperkalemia potassium up to 5.7 on 01/31 while off Lasix.
Hold potassium supplements
Follow BMP
CKD stage III by history
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
Initiated on corticosteroids prednisone 50 mg daily by nephrology
Given ongoing gastrointestinal hemorrhage and while n.p.o. we will transition to IV hydrocortisone.
Transition back to prednisone at decreased dose at 30 mg a day with slow taper.
Would avoid abrupt discontinuation given risk for adrenal insufficiency
Chronic CHF preserved EF.
Echo 12/15 LVEF 55-60%
Pulmonary hypertension with PAP 52 mmHg.
Consider to resume Lasix if stable hemodynamics and hemoglobin over the next 24 to 48 hours
Continue Revatio
Continue Toprol
Continue midodrine
Scleroderma/lupus/crest overlapping disorder.
Had been on high-dose of prednisone 50 mg daily.
History of DVT/PE
IVC filter in place with thrombosis according to recent imaging.
Not on anticoagulation due to high risk given severe anemia with ongoing gastrointestinal loss as well as thrombocytopenia.
Right hip pain due to chronic right periprosthetic femoral fracture
Recommended conservative management by orthopedics.
Continue Ultram for pain.
Full code
Goals of care discussion with patient daughter and son over the phone.
Patient with multiple medical condition not limited to scleroderma, severe anemia and thrombocytopenia requiring transfusions, overall progressive declining including cognitive status. Currently bedbound with pressure wounds. Addressed possibility
of further unfavorable clinical course with possible complications not limited to sepsis, aspiration, life-threatening hemorrhage. Family to discuss further options including palliative approach.
Anticipated Discharge: > 48 hours
Subjective/Interval History
-
Date of Service: February 08, 2024
Objective Data
-
Labs:
Laboratory Results
02/08/24
07:29
WBC 2.2 L*
Hgb 9.4 L
Hct 28.8 L
Plt Count 14 L* D
Sodium 141
Potassium 3.2 L
Chloride 102
Carbon Dioxide 33 H
BUN 13
Creatinine 0.6
Glucose 82
Calcium 8.5
Vital Signs:
Vital Signs
Temp Pulse Resp BP Pulse Ox
98.5 F 94 19 128/71 98
02/08/24 15:11 02/08/24 15:11 02/08/24 15:11 02/08/24 17:12 02/08/24 15:11
I&O
02/07/24 02/08/24 02/09/24
06:59 06:59 06:59
Intake Total 670 / 670 520 / 520
Output Total 1300 / 1300 1650 / 1650
Balance -630 / -630 -1130 / -1130
Physical Exam
-
General: Well Developed and No Apparent Distress
HEENT: Normocephalic, Moist Mucous Membranes and Anicteric
Respiratory: Clear to Auscultation
Cardiac: Regular Rhythm and S1/S2
GI: Soft, Nontender, Nondistended and Normal Bowel Sounds
Musculoskeletal: Edema, Right Lower Extrem and Edema, Left Lower Extrem
Skin: Warm and Dry
Neuro: Awake, Alert, Oriented and AO x 3
Psych: Calm
[2024-02-08] MEDS: ROBITUSSIN AC 5 ML PO (18:35)
[2024-02-08] MEDS: PEPCID 20 MG PO (21:10)
[2024-02-08] MEDS: REMERON 7.5 MG PO (21:10)
[2024-02-08] MEDS: TOPROL XL 12.5 MG PO (21:10)
[2024-02-09] VITALS (7 sets, daily range): BP systolic 97–125; BP diastolic 57–98; PULSE 112; BMI 25.4
--- NOTE | 2024-02-09 07:19 | W.PN.ONC2 ---
Today's Communication / Plan
-
SNF placement pending. Very poor counts and significant transfusion requirement supports primary BM disorder.
Poor PS precludes aggressive anti neoplastic strategies.
Agree with SNF with palliative care vs hospice as unlikely to regain strength.
Hospice might be better option based on significant cytopenias and futility of chronic transfusion support. This was discussed yesterday by my team with family.
Reasonable to wait for final BMBx results with SNF placement if bed available.
Impression
Impression
Presented from nursing facility with a syncopal episode
anemia, thrombocytopenia
BMBx flow showed monocytic dysmaturation possibly representing MDS/CMML however more acute process cannot be ruled out
Sacral pressure injury (suspect stage 4) with surrounding cellulitis
Bacteruria -Kleb pnumoniae
CREST syndrome with Lupus/scleroderma overlap
PE 2006, IVC filter placement 2007
C. diff antigen positive, toxin negative 02/06
Plan
Plan
Significant anemia and thrombocytopenia persist, without unifying diagnosis.
PLT transfusion yesterday 02/07 for PLT 14K
No iron, B12, or folate deficiency
No evidence for hemolysis. No evidence for plasma cell d/o.
S/P bone marrow biopsy done as inpatient 01/31 - await final path
Transfuse for hgb < 7.0, plts < 15K.
abx per ID
Subjective/Objective
Chief Complaint
ACS Heme Onc
Subjective
No c/o. Weak and mostly bedfast. For SNF placement.
Vital Signs:
Vital Signs
Temp Pulse Resp BP Pulse Ox
98.3 F 97 20 114/61 97
02/09/24 03:54 02/09/24 03:54 02/09/24 03:54 02/09/24 03:54 02/09/24 03:54
Lab Results:
Laboratory Data
WBC 2.2 10^3/uL (4.8-10.8) L* 02/08/24 07:29
Hgb 9.4 g/dL (12.0-16.0) L 02/08/24 07:29
Plt Count 14 10^3/uL (130-400) L* D 02/08/24 07:29
PT 14.2 Sec (11.4-14.6) 02/04/24 09:51
INR 1.07 02/04/24 09:51
APTT 23.9 Sec (23.4-35.0) 02/04/24 09:51
eGFR > 60.00 02/08/24 07:29
Physical Exam
PS 4
Cardiology: S1 and S2
[2024-02-09 07:47] LABS: Hematocrit 26.1 % (37.0-47.0); Hemoglobin 8.6 g/dL (12.0-16.0); Mean Corpuscular Hgb 31.2 pg (27.0-31.0); Mean Corpuscular Volume 94.6 fL (81.0-99.0); Mean Platelet Volume 11.4 fL (7.4-10.4); Platelet Count 22 10^3/uL (130-400); Red Blood Cell Count 2.76 10^6/uL (4.20-5.40); Red Cell Dist. Width 17.5 % (11.5-14.5); White Blood Cell Count 2.5 10^3/uL (4.8-10.8)
[2024-02-09 08:11] LABS: Blood Urea Nitrogen 12 mg/dl (7-17); Calcium 8.5 mg/dl (8.4-10.2); Carbon Dioxide 32 mmol/L (22-30); Chloride 101 mmol/L (98-107); Estimated Creatinine Clearance 71 ml/min; Glucose 82 mg/dl (70-99); Potassium 3.3 mmol/L (3.5-5.1); Sodium 138 mmol/L (135-145); eGFR > 60.00
[2024-02-09] MEDS: DELTASONE 30 MG PO (08:13)
[2024-02-09] MEDS: ProAmatine PO ×3 (08:13→16:34)
[2024-02-09] MEDS: AUGMENTIN 875 MG/125 MG 1 TABLET PO ×2 (08:13→20:11)
[2024-02-09] MEDS: REVATIO 20 MG PO ×3 (08:13→22:11)
[2024-02-09] MEDS: PROTONIX IV 40 MG IV ×2 (08:14→20:13)
[2024-02-09] MEDS: NSS (PRESERVATIVE FREE) 10 ML IV ×2 (08:14→20:13)
[2024-02-09] MEDS: ZINC OXIDE OINTMENT 1 APPLIC TOPICAL (08:14)
[2024-02-09] MEDS: NSS (PRESERVATIVE FREE) IV ×2 (08:15→20:12)
[2024-02-09] MEDS: SANTYL OINTMENT 1 APPLIC TOPICAL ×2 (08:15→20:12)
[2024-02-09 08:24] LABS: Absolute Neutrophils -Man Diff 2.3 10^3/uL (1.4-6.5); Band Neutrophils 15 % (0-3); Eosinophils 2 % (0-6); Lymphocytes 2 % (20-51); Monocytes 3 % (2-9); Segmented Neutrophils 78 % (42-75)
[2024-02-09 08:25] LABS: Normal RBC Morphology Yes; Platelets Checked Yes; Total Cells Counted 100
[2024-02-09] MEDS: ROBITUSSIN AC 5 ML PO ×2 (12:14→18:17)
--- NOTE | 2024-02-09 14:12 | CM ---
Patint's family to make final decision on goals of care for patient. Patient's son, Juan is requesting a meeting, meeting has been set up for tomorrow at 10am, attending is aware, oncology also contacted along with hospice nurse.
Plan; Meeting tomorrow, with Ryan De La O, Oncology, and son Juan and daughter Debra
--- NOTE | 2024-02-09 14:30 | HOSPNOTE ---
Hospice was informed that family meeting will be taking place tomorrow at 10 am with the physician and oncologist. I spoke to the son Juan and asked if he would like hospice present for this conversation and he would, hospice will be there to join
the meeting at 10 am.
--- NOTE | 2024-02-09 16:04 | W.PN.HOSP.TC ---
Today's Communication/Plan
-
Monitor CBC and transfuse as needed.
Ongoing goals of care discussion.
Supportive care
Assessment / Plan
Assessment / Plan
Impression:
Presented from nursing facility with a syncopal episode.
Initial concern for severe sepsis secondary to catheter associated urinary tract infection, ruled out.
Metabolic encephalopathy likely multifactorial
Acute on chronic anemia
Acute on chronic hyponatremia
Severe hypokalemia.
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
Other conditions:
Recent hospitalization with acute gastrointestinal hemorrhage with acute blood loss anemia and hemorrhagic shock.
Chronic diastolic CHF.
Chronic hypotension requiring midodrine.
Anemia of chronic disease.
Chronic thrombocytopenia.
History of DVT PE. [address] with history of thrombosis.
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
Pulmonary hypertension
CKD 3 by history
-S/p renal biopsy complicated with hemorrhage
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
Chronic bladder outlet obstruction requiring indwelling Savage catheter
Plan:
Initial concern for severe sepsis secondary to catheter associated urine tract infection
Repeated urine cultures consistent with contamination
Blood cultures negative to date
Infectious disease input appreciated.
Monitor closely
Stage IV sacral pressure wound with cellulitis/osteomyelitis (exposed bone)
Initiated on Unasyn on 01/31 and transition to Augmentin on 02/03
Indwelling Savage catheter.
Initial concern for leak likely from labial pressure wound
Metabolic encephalopathy likely multifactorial in the settings of relative hypotension and anemia
Mental status close to baseline.
MRI of the brain 02/02 with no evidence for acute intracranial abnormality. Moderate atrophy which appears fairly diffuse and slightly advanced for the patient's age.
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
Acute on chronic anemia.
Has a history of acute blood loss over prior admission.
No evidence of overt bleeding since admission.
Hemoglobin trending down 8.3�6.7 at the lowest with appropriate response to transfusion 1 units of packed red blood cells given with hemoglobin at 9.1.
Recent workup for acute anemia with CTA negative for acute blood loss
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
Most likely lower gastrointestinal bleeding in the settings of AVM, severe grade D esophagitis in the settings of chronic thrombocytopenia as well as chronic corticosteroid use
With ongoing melena with concern for slow gastrointestinal hemorrhage
Transfuse to keep hemoglobin above 8�9
Continue IV PPI.
Discussed with gastroenterology. Remains high risk for endoscopy given severe thrombocytopenia
Chronic thrombocytopenia
? If consumptive
Bone marrow biopsy performed on 01/31. 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
Transfuse platelets if count less than 15K
Acute hyponatremia. Improved while off Lasix
Currently off Lasix.
Follow BMP.
If worsening consider further workup with urine osmolarity
TSH within normal limits
Less likely adrenal insufficient
Serum cortisol skewed while on chronic prednisone.
Hypokalemia improved with repletion.
Hyperkalemia potassium up to 5.7 on 01/31 while off Lasix.
Hold potassium supplements
Follow BMP
CKD stage III by history
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
Initiated on corticosteroids prednisone 50 mg daily by nephrology
Given ongoing gastrointestinal hemorrhage and while n.p.o. we will transition to IV hydrocortisone.
Transition back to prednisone at decreased dose at 30 mg a day with slow taper.
Would avoid abrupt discontinuation given risk for adrenal insufficiency
Chronic CHF preserved EF.
Echo 12/15 LVEF 55-60%
Pulmonary hypertension with PAP 52 mmHg.
Consider to resume Lasix if stable hemodynamics and hemoglobin over the next 24 to 48 hours
Continue Revatio
Continue Toprol
Continue midodrine
Scleroderma/lupus/crest overlapping disorder.
Had been on high-dose of prednisone 50 mg daily.
History of DVT/PE
IVC filter in place with thrombosis according to recent imaging.
Not on anticoagulation due to high risk given severe anemia with ongoing gastrointestinal loss as well as thrombocytopenia.
Right hip pain due to chronic right periprosthetic femoral fracture
Recommended conservative management by orthopedics.
Continue Ultram for pain.
Full code
Goals of care discussion with patient daughter and son over the phone.
Patient with multiple medical condition not limited to scleroderma, severe anemia and thrombocytopenia requiring transfusions, overall progressive declining including cognitive status. Currently bedbound with pressure wounds. Addressed possibility
of further unfavorable clinical course with possible complications not limited to sepsis, aspiration, life-threatening hemorrhage. Family to discuss further options including palliative approach.
Anticipated Discharge: > 48 hours
Subjective/Interval History
-
Date of Service: February 09, 2024
Objective Data
-
Labs:
Laboratory Results
02/09/24
06:58
WBC 2.5 L
Hgb 8.6 L
Hct 26.1 L
Plt Count 22 L* D
Sodium 138
Potassium 3.3 L
Chloride 101
Carbon Dioxide 32 H
BUN 12
Creatinine 0.5 L
Glucose 82
Calcium 8.5
Vital Signs:
Vital Signs
Temp Pulse Resp BP Pulse Ox
98 F 110 16 114/71 97
02/09/24 15:44 02/09/24 15:44 02/09/24 15:44 02/09/24 15:44 02/09/24 15:44
I&O
02/08/24 02/09/24 02/10/24
06:59 06:59 06:59
Intake Total 520 / 520 1096 / 1096
Output Total 1650 / 1650 875 / 875
Balance -1130 / -1130 221 / 221
Physical Exam
-
General: Well Developed and No Apparent Distress
HEENT: Normocephalic, Moist Mucous Membranes and Anicteric
Respiratory: Clear to Auscultation
Cardiac: Regular Rhythm and S1/S2
GI: Soft, Nontender, Nondistended and Normal Bowel Sounds
Musculoskeletal: Edema, Right Lower Extrem and Edema, Left Lower Extrem
Skin: Warm and Dry
Neuro: Awake, Alert, Oriented and AO x 3
Psych: Calm
[2024-02-09] MEDS: LIPITOR 10 MG PO (17:00)
--- NOTE | 2024-02-09 17:32 | PTCARENOTE ---
patient had total output of 200ml urine through patel during day shift, bladder scan performed resulting total of 3ml in bladder. MD Davis notified. will continue to encourage fluids
[2024-02-09] MEDS: ULTRAM 50 MG PO (20:30)
[2024-02-09] MEDS: PEPCID 20 MG PO (22:11)
[2024-02-09] MEDS: TOPROL XL PO (22:12)
[2024-02-09] MEDS: REMERON 7.5 MG PO (22:15)
[2024-02-10] VITALS (9 sets, daily range): BP systolic 100–122; BP diastolic 54–71; BMI 26.3
[2024-02-10] MEDS: ROBITUSSIN AC 5 ML PO (03:39)
[2024-02-10] MEDS: DELTASONE 30 MG PO (08:46)
[2024-02-10] MEDS: SANTYL OINTMENT 1 APPLIC TOPICAL ×2 (08:46→20:23)
[2024-02-10] MEDS: ZINC OXIDE OINTMENT 1 APPLIC TOPICAL (08:46)
[2024-02-10] MEDS: PROTONIX IV 40 MG IV (08:47)
[2024-02-10] MEDS: REVATIO 20 MG PO ×3 (08:47→20:23)
[2024-02-10] MEDS: NSS (PRESERVATIVE FREE) 10 ML IV (08:47)
[2024-02-10] MEDS: NSS (PRESERVATIVE FREE) IV (08:47)
[2024-02-10] MEDS: AUGMENTIN 875 MG/125 MG 1 TABLET PO ×2 (08:47→20:22)
[2024-02-10] MEDS: ProAmatine 10 MG PO (08:49)
[2024-02-10 09:10] LABS: % Basophils 0.8 % (0-2); % Eosinophils 0.4 % (0-6); % Immature Granulocytes 1.7 % (0-0.5); % Monocytes 5.1 % (1.7-9.3); Absolute Lymphocytes 0.1 10^3/uL (1.2-3.4); Absolute Monocytes 0.1 10^3/uL (0.1-0.6); Absolute Neutrophils 2.1 10^3/uL (1.4-6.5); Hematocrit 27.1 % (37.0-47.0); Hemoglobin 8.9 g/dL (12.0-16.0); Mean Corp Hgb Conc. 32.8 g/dL (33.0-37.0); Mean Corpuscular Hgb 31.6 pg (27.0-31.0); Mean Corpuscular Volume 96.1 fL (81.0-99.0); Nucleated Red Blood Cells % 0 %; Platelet Count 12 10^3/uL (130-400); Red Blood Cell Count 2.82 10^6/uL (4.20-5.40); Red Cell Dist. Width 17.5 % (11.5-14.5); White Blood Cell Count 2.4 10^3/uL (4.8-10.8)
[2024-02-10 09:26] LABS: Blood Urea Nitrogen 15 mg/dl (7-17); Calcium 8.6 mg/dl (8.4-10.2); Carbon Dioxide 32 mmol/L (22-30); Chloride 100 mmol/L (98-107); Estimated Creatinine Clearance 71 ml/min; Glucose 90 mg/dl (70-99); Potassium 3.5 mmol/L (3.5-5.1); Sodium 136 mmol/L (135-145); eGFR > 60.00
--- NOTE | 2024-02-10 10:52 | W.PN.ID1 ---
Date of Service
Date of Service: February 10, 2024
Today's Communication
Last day Augmentin 875mg po bid today.
ID will sign off. Call prn.
Assessment / Plan
# Sacral pressure injury (suspect stage 4) with surrounding cellulitis
- Last day Augmentin 875mg po bid today 02/10/24
- Off load sacrum.
# Chronic anemia and thrombocytopenia, transfusion dependent
# Now leukopenia
- 01/31 s/p bone marrow biopsy
- Hem-Onc discussed GOC with family
# C diff colonization
- C. diff ag+, toxin -
- No diarrhea
# Bacteruria
# urinary retention with chronic patel, changed 01/27.
- Initial Ucx Proteus,Klebsiella.
- Ucx after patel change <80K mixed mark
- Not uncommon to have abnormal UA and colonized bacteria in setting of chronic patel.
- Pt asymptomatic, no fever.
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
CREST syndrome with Lupus/scleroderma overlap
Chronic hypotension on midodrine
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
CKD3
Urinary retention with chronic patel
HFpEF
HTN
Chronic thrombocytopenia
Pulmonary hypertension
PE 2006
IVC filter placement 2007
Bilateral total hip arthroplasty
Hysterectomy
Perineoplasty
Chief Complaint
-: Other (sacral decub)
Subjective / Review of Systems
Feels OK.
Vital Signs / Physical Exam
Vital Signs
Vital Signs
Temp Pulse Resp BP Pulse Ox
98 F 117 19 109/71 94
02/10/24 07:00 02/10/24 07:00 02/10/24 07:00 02/10/24 08:49 02/10/24 07:00
Physical Exam
Constitutional: Comfortable and Chronically Ill
Cardiovascular: Other (tachy)
Pulmonary: Clear (anteriorly)
Gastrointestinal: Soft, Non Tender and Non Distended
Extremities: Edema
Objective Data
Lab Data
Lab Results
02/10/24 08:15
02/10/24 08:15
PT 14.2 Sec (11.4-14.6) 02/04/24 09:51
INR 1.07 02/04/24 09:51
APTT 23.9 Sec (23.4-35.0) 02/04/24 09:51
Estimated Creat Clear 71 ml/min 02/10/24 08:15
Total Bilirubin 1.4 mg/dl (0.2-1.3) H 01/29/24 06:06
AST 14 U/L (14-36) 01/29/24 06:06
ALT 19 U/L (0-35) 01/29/24 06:06
Alkaline Phosphatase 204 U/L (38-126) H 01/29/24 06:06
Most recent labs reviewed.
Micro Results:
02/06/24 16:43 C. difficile GDH Antigen & Toxins - Final
Feces/Stool C. difficile antigen positive, toxin negative.
Clostridium difficile present, but toxin not detected.
Patient may be a carrier, colonized with nontoxinogenic
strain or the level of toxin in sample is below detection
limits. This information should be used in conjunction with
the patient's clinical history.
01/28/24 17:34 Blood Culture - Final
Blood/Venous No Growth - Final Report
01/28/24 17:34 Blood Culture - Final
Blood/Venous No Growth - Final Report
01/28/24 23:12 Urine Culture - Final
Urine
01/28/24 14:07 Urine Culture - Final
Urine Klebsiella pneumoniae
Proteus mirabilis
01/28/24 21:10 MRSA Screen - Final
Nose No Methicillin Resistant Staphylococcus aureus isolated.
01/28/24 CXR: No acute cardiopulmonary process
--- NOTE | 2024-02-10 10:56 | W.PN.ONC ---
Today's Communication / Plan
-
Pathology from bone marrow is pending final
Flow cytometry appears to show dysplastic monocytic features features consistent with MDS/CMML
Reviewed the typical prognosis of this disease including increased risk for recurrent and potentially fatal infection
Family meeting to discuss comfort measures
Family has elected 1 additional transfusion
Impression
Impression
Persistent pancytopenia requiring transfusion support
BMBx flow showed monocytic dysmaturation possibly representing MDS/CMML however more acute process cannot be ruled out
Sacral pressure injury (suspect stage 4) with surrounding cellulitis
Bacteruria -Kleb pnumoniae
CREST syndrome with Lupus/scleroderma overlap
PE 2006, IVC filter placement 2007
C. diff antigen positive, toxin negative 02/06
Plan
Plan
Significant anemia and thrombocytopenia persist, without unifying diagnosis.
PLT transfusion yesterday 02/07 for PLT 14K
No iron, B12, or folate deficiency
No evidence for hemolysis. No evidence for plasma cell d/o.
S/P bone marrow biopsy done as inpatient 01/31 - await final path
Transfuse for hgb < 7.0, plts < 15K.
abx per ID
Subjective/Objective
Subjective/Objective
Patient without new complaints.
Vital Signs:
Vital Signs
Temp Pulse Resp BP Pulse Ox
98 F 117 19 109/71 94
02/10/24 07:00 02/10/24 07:00 02/10/24 07:00 02/10/24 08:49 02/10/24 07:00
No scleral icterus
Heart regular
Lungs without rales
Extremities with edema
Lab Results:
Laboratory Data
WBC 2.4 10^3/uL (4.8-10.8) L* 02/10/24 08:15
Hgb 8.9 g/dL (12.0-16.0) L 02/10/24 08:15
Plt Count 12 10^3/uL (130-400) L* D 02/10/24 08:15
PT 14.2 Sec (11.4-14.6) 02/04/24 09:51
INR 1.07 02/04/24 09:51
APTT 23.9 Sec (23.4-35.0) 02/04/24 09:51
eGFR > 60.00 02/10/24 08:15
--- NOTE | 2024-02-10 11:00 | CM ---
Chart reviewed and meeting held today with attending, oncology, [place] [facility] and assistant case manager, patient's son and daughter in law along with patient's daughter. Plan is to review the information that they received at the meeting and plan with
patient and extended family, and then transition to hospice. ranch manager will send a referral to [facility].
Plan; Possible transition to [facility].
[2024-02-10] MEDS: ProAmatine PO ×2 (12:17→16:33)
--- NOTE | 2024-02-10 14:20 | HOSPNOTE ---
Hospice met with patients son, daughter, daughter in law, oncology physician, attending physician and CM. Family informed us all that patients is also presently admitted in the ICU. Discussion took place on patients condition and poor
prognosis. Family requested patient receive transfusion today. Family then in agreement with comfort care measures to begin tomorrow. Once comfort care measures are initiated, will request a bed on [address] and monitor for inpatient hospice
eligibility. Emotional support provided. Hospice will continue to follow.
--- NOTE | 2024-02-10 16:00 | W.PN.HOSP.TC ---
Today's Communication/Plan
-
Meeting with family, representatives of hospice and oncology
Discussion in regards to clinical situation with progressive deterioration in multiple aspects including cognitive and performance status, myelodysplastic disorder requiring frequent transfusions, recurrent infection, infected pressure wounds. Plan
is to transition to comfort care.
CODE STATUS changed to DNR.
Assessment / Plan
Assessment / Plan
Impression:
Presented from nursing facility with a syncopal episode.
Initial concern for severe sepsis secondary to catheter associated urinary tract infection, ruled out.
Metabolic encephalopathy likely multifactorial
Acute on chronic anemia
Acute on chronic hyponatremia
Severe hypokalemia.
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
Other conditions:
Recent hospitalization with acute gastrointestinal hemorrhage with acute blood loss anemia and hemorrhagic shock.
Chronic diastolic CHF.
Chronic hypotension requiring midodrine.
Anemia of chronic disease.
Chronic thrombocytopenia.
History of DVT PE. [address] with history of thrombosis.
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
Pulmonary hypertension
CKD 3 by history
-S/p renal biopsy complicated with hemorrhage
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
Chronic bladder outlet obstruction requiring indwelling Savage catheter
Plan:
Initial concern for severe sepsis secondary to catheter associated urine tract infection
Repeated urine cultures consistent with contamination
Blood cultures negative to date
Infectious disease input appreciated.
Monitor closely
Stage IV sacral pressure wound with cellulitis/osteomyelitis (exposed bone)
Initiated on Unasyn on 01/31 and transition to Augmentin on 02/03
Indwelling Savage catheter.
Initial concern for leak likely from labial pressure wound
Metabolic encephalopathy likely multifactorial in the settings of relative hypotension and anemia
Mental status close to baseline.
MRI of the brain 02/02 with no evidence for acute intracranial abnormality. Moderate atrophy which appears fairly diffuse and slightly advanced for the patient's age.
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
Acute on chronic anemia.
Has a history of acute blood loss over prior admission.
No evidence of overt bleeding since admission.
Hemoglobin trending down 8.3�6.7 at the lowest with appropriate response to transfusion 1 units of packed red blood cells given with hemoglobin at 9.1.
Recent workup for acute anemia with CTA negative for acute blood loss
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
Most likely lower gastrointestinal bleeding in the settings of AVM, severe grade D esophagitis in the settings of chronic thrombocytopenia as well as chronic corticosteroid use
With ongoing melena with concern for slow gastrointestinal hemorrhage
Transfuse to keep hemoglobin above 8�9
Continue IV PPI.
Discussed with gastroenterology. Remains high risk for endoscopy given severe thrombocytopenia
Chronic thrombocytopenia
? If consumptive
Bone marrow biopsy performed on 01/31. 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
Transfuse platelets if count less than 15K
Acute hyponatremia. Improved while off Lasix
Currently off Lasix.
Follow BMP.
If worsening consider further workup with urine osmolarity
TSH within normal limits
Less likely adrenal insufficient
Serum cortisol skewed while on chronic prednisone.
Hypokalemia improved with repletion.
Hyperkalemia potassium up to 5.7 on 01/31 while off Lasix.
Hold potassium supplements
Follow BMP
CKD stage III by history
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
Initiated on corticosteroids prednisone 50 mg daily by nephrology
Given ongoing gastrointestinal hemorrhage and while n.p.o. we will transition to IV hydrocortisone.
Transition back to prednisone at decreased dose at 30 mg a day with slow taper.
Would avoid abrupt discontinuation given risk for adrenal insufficiency
Chronic CHF preserved EF.
Echo 12/15 LVEF 55-60%
Pulmonary hypertension with PAP 52 mmHg.
Consider to resume Lasix if stable hemodynamics and hemoglobin over the next 24 to 48 hours
Continue Revatio
Continue Toprol
Continue midodrine
Scleroderma/lupus/crest overlapping disorder.
Had been on high-dose of prednisone 50 mg daily.
History of DVT/PE
IVC filter in place with thrombosis according to recent imaging.
Not on anticoagulation due to high risk given severe anemia with ongoing gastrointestinal loss as well as thrombocytopenia.
Right hip pain due to chronic right periprosthetic femoral fracture
Recommended conservative management by orthopedics.
Continue Ultram for pain.
Goals of care discussion with patient daughter and son over the phone.
Patient with multiple medical condition not limited to scleroderma, severe anemia and thrombocytopenia requiring transfusions, overall progressive declining including cognitive status. Currently bedbound with pressure wounds. Addressed possibility
of further unfavorable clinical course with possible complications not limited to sepsis, aspiration, life-threatening hemorrhage. Family to discuss further options including palliative approach.
Meeting with family, representatives of hospice and oncology
Discussion in regards to clinical situation with progressive deterioration in multiple aspects including cognitive and performance status, myelodysplastic disorder requiring frequent transfusions, recurrent infection, infected pressure wounds. Plan
is to transition to comfort care.
CODE STATUS changed to DNR.
Anticipated Discharge: > 48 hours
Subjective/Interval History
-
Date of Service: February 10, 2024
Objective Data
-
Labs:
Laboratory Results
02/10/24
08:15
WBC 2.4 L*
Hgb 8.9 L
Hct 27.1 L
Plt Count 12 L* D
Sodium 136
Potassium 3.5
Chloride 100
Carbon Dioxide 32 H
BUN 15
Creatinine 0.6
Glucose 90
Calcium 8.6
Vital Signs:
Vital Signs
Temp Pulse Resp BP Pulse Ox
98.8 F 109 20 100/59 95
02/10/24 14:32 02/10/24 14:32 02/10/24 12:41 02/10/24 14:32 02/10/24 11:00
I&O
02/09/24 02/10/24 02/11/24
06:59 06:59 06:59
Intake Total 1096 / 1096 840 / 840 746 / 746
Output Total 875 / 875 400 / 400
Balance 221 / 221 440 / 440 746 / 746
Physical Exam
-
General: Well Developed and No Apparent Distress
HEENT: Normocephalic, Moist Mucous Membranes and Anicteric
Respiratory: Clear to Auscultation
Cardiac: Regular Rhythm and S1/S2
GI: Soft, Nontender, Nondistended and Normal Bowel Sounds
Musculoskeletal: Edema, Right Lower Extrem and Edema, Left Lower Extrem
Skin: Warm and Dry
Neuro: Awake, Alert, Oriented and AO x 3
Psych: Calm
[2024-02-10] MEDS: LIPITOR 10 MG PO (17:00)
--- NOTE | 2024-02-10 17:07 | PTOTSP ---
ST Follow-Up
Pt currently presents with clinical signs concerning for at least moderate pharyngeal dysphagia characterized by immediate weak, wet congested coughing with both small and larger quantities of thin liquids.
Recommendations:
- If continuing with restorative care right now, NPO except meds whole in puree.
- If initiating comfort feeds now, would start with pureed solids and thin liquids with small cup sips only and take breaks if/when pt demonstrates signs of respiratory distress. Upgrade solid consistencies as deemed appropriate.
- Aspiration precautions: HOB upright for all PO intake; make sure pt is fully awake/alert; small bites/sips; feed slowly.
- TRANSMISSION REPAIRER to f/u re: GOC and dysphagia tx if indicated.
[2024-02-10] MEDS: PEPCID 20 MG PO (20:23)
[2024-02-10] MEDS: REMERON 7.5 MG PO (20:23)
[2024-02-10] MEDS: TOPROL XL 12.5 MG PO (20:24)
[2024-02-11] MEDS: ULTRAM 50 MG PO (01:37)
[2024-02-11 03:31] VITALS: BP 102/63
[2024-02-11 06:00] VITALS: BMI 26.5
[2024-02-11 07:10] VITALS: BP 98/62
[2024-02-11 08:37] LABS: Hematocrit 22.3 % (37.0-47.0); Hemoglobin 7.9 g/dL (12.0-16.0); Mean Corp Hgb Conc. 35.4 g/dL (33.0-37.0); Mean Corpuscular Hgb 34.5 pg (27.0-31.0); Mean Corpuscular Volume 97.4 fL (81.0-99.0); Red Blood Cell Count 2.29 10^6/uL (4.20-5.40); Red Cell Dist. Width 20.9 % (11.5-14.5); White Blood Cell Count 3.3 10^3/uL (4.8-10.8)
[2024-02-11 08:52] LABS: Blood Urea Nitrogen 17 mg/dl (7-17); Calcium 8.4 mg/dl (8.4-10.2); Carbon Dioxide 33 mmol/L (22-30); Chloride 101 mmol/L (98-107); Estimated Creatinine Clearance 71 ml/min; Glucose 79 mg/dl (70-99); Potassium 4.1 mmol/L (3.5-5.1); Sodium 137 mmol/L (135-145); eGFR > 60.00
[2024-02-11] MEDS: REVATIO 20 MG PO (08:54)
[2024-02-11] MEDS: ProAmatine 10 MG PO (08:54)
[2024-02-11] MEDS: DELTASONE 30 MG PO (08:56)
[2024-02-11] MEDS: SANTYL OINTMENT 1 APPLIC TOPICAL ×2 (08:56→22:08)
[2024-02-11] MEDS: PROTONIX 40 MG PO (08:56)
[2024-02-11] MEDS: ZINC OXIDE OINTMENT 1 APPLIC TOPICAL (08:57)
[2024-02-11] MEDS: ROBITUSSIN AC 5 ML PO (09:56)
[2024-02-11 11:41] VITALS: BP 107/67
[2024-02-11 11:44] LABS: Platelet Count 20 10^3/uL (130-400)
[2024-02-11 11:45] LABS: Absolute Neutrophils -Man Diff 2.9 10^3/uL (1.4-6.5); Band Neutrophils 16 % (0-3); Eosinophils 1 % (0-6); Lymphocytes 1 % (20-51); Monocytes 7 % (2-9); Myelocytes 1 % (-); Platelets Checked YES; Segmented Neutrophils 74 % (42-75)
[2024-02-11 11:46] LABS: Normal RBC Morphology No; Nucleated Red Blood Cells 1 (-)
[2024-02-11 11:47] LABS: Ovalocytes FEW; Tear Drop Red Blood Cells FEW
[2024-02-11 11:48] LABS: Total Cells Counted 100
--- NOTE | 2024-02-11 13:33 | W.PN.HOSP.TC ---
Today's Communication/Plan
-
Comfort care
Seldom dose of Lasix will be provided for clinical volume overload posttransfusion
Initiate IV morphine with option to transition to drip if required
IV lorazepam
Bowel management.
Hospice consult
Assessment / Plan
Assessment / Plan
Impression:
Presented from nursing facility with a syncopal episode.
Initial concern for severe sepsis secondary to catheter associated urinary tract infection, ruled out.
Metabolic encephalopathy likely multifactorial
Acute on chronic anemia
Acute on chronic hyponatremia
Severe hypokalemia.
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
Other conditions:
Recent hospitalization with acute gastrointestinal hemorrhage with acute blood loss anemia and hemorrhagic shock.
Chronic diastolic CHF.
Chronic hypotension requiring midodrine.
Anemia of chronic disease.
Chronic thrombocytopenia.
History of DVT PE. [address] with history of thrombosis.
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
Pulmonary hypertension
CKD 3 by history
-S/p renal biopsy complicated with hemorrhage
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
Chronic bladder outlet obstruction requiring indwelling Savage catheter
Plan:
Patient is a 73 years old female with multiple comorbidities including scleroderma, pulmonary hypertension, chronic kidney disease with biopsy-proven minimal-change disease, severe pancytopenia with transfusion dependency with bone marrow suggestive
of myelodysplastic disorder, overall rapidly declining performance status and currently bedbound with stage IV infected pressure wound, multiple hospital readmissions with complications related to infection, severe aspiration syndrome. In
discussion with family plan is to transition to comfort care.
Anticipated Discharge: 24 - 48 hours
Subjective/Interval History
-
Date of Service: February 11, 2024
Objective Data
-
Labs:
Laboratory Results
02/11/24
06:58
WBC 3.3 L
Hgb 7.9 L
Hct 22.3 L
Plt Count 20 L* D
Sodium 137
Potassium 4.1
Chloride 101
Carbon Dioxide 33 H
BUN 17
Creatinine 0.4 L
Glucose 79
Calcium 8.4
Vital Signs:
Vital Signs
Temp Pulse Resp BP Pulse Ox
98.9 F 100 22 107/67 96
02/11/24 11:41 02/11/24 11:41 02/11/24 11:41 02/11/24 11:41 02/11/24 11:41
I&O
02/10/24 02/11/24 02/12/24
06:59 06:59 06:59
Intake Total 840 / 840 986 / 986
Output Total 400 / 400 300 / 300 225 / 225
Balance 440 / 440 686 / 686 -225 / -225
Physical Exam
-
General: Well Developed and No Apparent Distress
HEENT: Normocephalic, Moist Mucous Membranes and Anicteric
Respiratory: Clear to Auscultation
Cardiac: Regular Rhythm and S1/S2
GI: Soft, Nontender, Nondistended and Normal Bowel Sounds
Musculoskeletal: Edema, Right Lower Extrem and Edema, Left Lower Extrem
Skin: Warm and Dry
Neuro: Other (Lethargic)
Psych: Calm
--- NOTE | 2024-02-11 13:43 | HOSPNOTE ---
Patient will be transferred to [address] [place] [id number] on comfort care. Hospice will continue to follow and assess. Attending aware of plan. The patient has received no comfort medications at this time. Patient will be included in the weekend report.
--- NOTE | 2024-02-11 14:12 | CM ---
Chart reviewed and plan is to move patient onto comfort measures and transfer to [address] [place] [address]. Family are agreeable to plan after meeting yesterday, they feel comfortable with their decision. welfare centre manager spoke with patient, son and daughter.
Plan; Patient to transfer to [address] [place] [address] on comfort measures.
[2024-02-11] MEDS: ProAmatine PO (14:14)
[2024-02-11] MEDS: LASIX 40 MG IV (14:24)
[2024-02-11 20:42] VITALS: BP 102/65
[2024-02-11] MEDS: REMERON 7.5 MG PO (22:08)
[2024-02-12] MEDS: ATIVAN 2 MG IV ×2 (03:03→15:48)
[2024-02-12] MEDS: NSS (PRESERVATIVE FREE) 1 ML IV ×2 (03:05→15:49)
[2024-02-12 08:00] VITALS: BP 82/56
--- NOTE | 2024-02-12 09:17 | W.PN.HOSP.TC ---
Today's Communication/Plan
-
Comfort measures. Hospice consult.
Assessment / Plan
Assessment / Plan
Physical exam:
General: Acutely and chronically ill
HEENT: Normocephalic, Atraumatic and Moist Mucous Membranes
Respiratory: Bilateral rhonchi, no wheezes.
Cardiac: Regular Rhythm and S1/S2
GI: Soft, Nontender and Nondistended
Musculoskeletal: No Clubbing, No Cyanosis
Neuro: Awake, Alert and mildly disoriented
Psych: Calm, limited judgment insight
A/P:
Impression:
Presented from nursing facility with a syncopal episode.
Initial concern for severe sepsis secondary to catheter associated urinary tract infection, ruled out.
Metabolic encephalopathy likely multifactorial
Acute on chronic anemia
Acute on chronic hyponatremia
Severe hypokalemia.
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
Other conditions:
Recent hospitalization with acute gastrointestinal hemorrhage with acute blood loss anemia and hemorrhagic shock.
Chronic diastolic CHF.
Chronic hypotension requiring midodrine.
Anemia of chronic disease.
Chronic thrombocytopenia.
History of DVT PE. [address] with history of thrombosis.
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
Pulmonary hypertension
CKD 3 by history
-S/p renal biopsy complicated with hemorrhage
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
Chronic bladder outlet obstruction requiring indwelling Savage catheter
Plan:
Patient is a 73 years old female with multiple comorbidities including scleroderma, pulmonary hypertension, chronic kidney disease with biopsy-proven minimal-change disease, severe pancytopenia with transfusion dependency with bone marrow suggestive
of myelodysplastic disorder, overall rapidly declining performance status and currently bedbound with stage IV infected pressure wound, multiple hospital readmissions with complications related to infection, severe aspiration syndrome. In
discussion with family plan is to transition to comfort care. Patient to continue on comfort medications. Hospice consult in today and discussed with counseling case manager today. Discussed with family at bedside as well.
Anticipated Discharge: 24 - 48 hours
Subjective/Interval History
-
Date of Service: February 12, 2024
Patient looks frail overall. On supplemental oxygen.
Objective Data
-
Vital Signs:
Vital Signs
Temp Pulse Resp BP Pulse Ox
98.5 F 111 16 102/65 97
02/11/24 20:42 02/11/24 20:42 02/11/24 20:42 02/11/24 20:42 02/12/24 00:49
I&O
02/11/24 02/12/24 02/13/24
06:59 06:59 06:59
Intake Total 986 / 986 240 / 240
Output Total 300 / 300 2074 / 2074
Balance 686 / 686 -1835 / -1835
[2024-02-12] MEDS: SANTYL OINTMENT 1 APPLIC TOPICAL (09:35)
[2024-02-12] MEDS: ZINC OXIDE OINTMENT 1 APPLIC TOPICAL (09:35)
[2024-02-12] MEDS: ROBINUL 0.2 MG IV ×2 (10:32→15:48)
--- NOTE | 2024-02-12 11:35 | HOSPNOTE ---
Hospice continues to follow for support. Patient remains on comfort measures. Spoke to primary RN and I recommend to continue with comfort care at this time. I called and spoke to patients son Juan and offered support. They are coping at this time.
Hospice will continue to follow and support patient and family.
--- NOTE | 2024-02-12 14:35 | CM ---
Confirmed hospice consult with physician on chart and referral sent to [facility] hospice. CM will follow for further discharge planning needs.
[2024-02-12] MEDS: MORPHINE SULFATE 2 MG IV ×2 (14:38→16:22)
--- NOTE | 2024-02-12 16:30 | PTCARENOTE ---
pt was in a lot of discomfort after wound care this shift, could not find a right posititon for her, medicated with Morphine x2 then Ativan x1 and Rubinol, she then seemed more comfortable. Will need to be premedicated with Morphine prior to wound
care to help alleviate the discomfort. Family at bedside, comfort tray ordered.
[2024-02-12 20:47] VITALS: BP 61/37
[2024-02-12] MEDS: SANTYL OINTMENT TOPICAL (21:09)
[2024-02-12] MEDS: REMERON PO (21:09)
--- NOTE | 2024-02-12 22:27 | PTCARENOTE ---
Patient does not meet criteria for any gift of Life donation per [facility]
--- NOTE | 2024-02-13 00:20 | W.PN.DEATH ---
Pronouncement of
-
Called to see patient to pronounce.
No spontaneous heart tones or respirations noted.
Patient not responsive to verbal stimuli.
Patient is pronounced .
Time of : 20:20
Date of : 02/12/24
Family Notified: Yes
--- NOTE | 2024-02-13 07:41 | W.DCSUMMARY ---
Discharge Summary
Discharge Data
Date of Admission: 01/28/24
Date of Discharge: 02/12/24
-
Pending Results: No
Hospital Course
Patient 73 years old female with history of severe pulmonary hypertension, scleroderma/lupus overlap, crest syndrome, CHF, GERD, hyperlipidemia, DVT/PE, severe esophagitis with large hiatal hernia, recurrent anemia, thrombocytopenia, presented with
syncope, altered mental status, severe hypokalemia, and also sepsis due to stage IV sacral ulcer with cellulitis, and bacteriuria, and complicated course with GI bleed. Patient had ID and oncology and GI on board. She was transfused. She had bone
marrow biopsy. Pathology report consistent with MDS/CMML. She was also started on steroids. Patient continued to deteriorate clinically and discussions took place for comfort care measures and hospice care. Patient was placed on comfort care
medications. Patient on 02/12/2024 at 20:00.
Discharge Plan
-
Patient Disposition:
Date/Time
Date/Time: 02/13/24 01:04
Discharge Date and Time
Discharge Date/Time: 02/13/24 01:04
Print Language: CYMRAES
== END 2024-02-12 01:04 | disposition expired | DRG 840 ==
LOC: 2 NORTH 17:41
PROVIDERS: Emergency Medicine; Family Medicine; Internal Medicine; Nurse Practitioner Acute Care; Radiology Vascular & Interventional Radiology; ADMITTING PHYSICIAN General Practice; ATTENDING PHYSICIAN Hospitalist; CONSULT PHYSICIAN Internal Medicine Gastroenterology; CONSULT PHYSICIAN Internal Medicine Hematology & Oncology; EMERGENCY PHYSICIAN Emergency Medicine; FAMILY PHYSICIAN Family Medicine; OTHER PHYSICIAN Internal Medicine Infectious Disease
PROC: 30233N1 Transfusion of Nonautologous Red Blood Cells into Peripheral Vein, Percutaneous Approach (ICD-10-PCS; 2024-01-30)
PROC: 07DR3ZX Extraction of Iliac Bone Marrow, Percutaneous Approach, Diagnostic (ICD-10-PCS; 2024-02-01)
PROC: 30233R1 Transfusion of Nonautologous Platelets into Peripheral Vein, Percutaneous Approach (ICD-10-PCS; 2024-02-01)
DX: C93.10 Chronic myelomonocytic leukemia not having achieved remission (principal); A41.9 Sepsis, unspecified organism; G93.41 Metabolic encephalopathy; L89.154 Pressure ulcer of sacral region, stage 4; R65.20 Severe sepsis without septic shock; L03.312 Cellulitis of back [any part except buttock and flank]; I13.0 Hypertensive heart and chronic kidney disease with heart failure and stage 1 through stage 4 chronic kidney disease, or unspecified chronic kidney disease; E87.1 Hypo-osmolality and hyponatremia; M86.8X8 Other osteomyelitis, other site; I50.32 Chronic diastolic (congestive) heart failure; K92.1 Melena; D61.818 Other pancytopenia; E78.00 Pure hypercholesterolemia, unspecified; I27.20 Pulmonary hypertension, unspecified; D69.59 Other secondary thrombocytopenia; D46.9 Myelodysplastic syndrome, unspecified; Z51.5 Encounter for palliative care; Z66 Do not resuscitate; E87.6 Hypokalemia; D50.9 Iron deficiency anemia, unspecified; I95.1 Orthostatic hypotension; M34.1 CR(E)ST syndrome; I95.89 Other hypotension; E87.5 Hyperkalemia; E53.8 Deficiency of other specified B group vitamins; M32.9 Systemic lupus erythematosus, unspecified; F03.90 Unspecified dementia, unspecified severity, without behavioral disturbance, psychotic disturbance, mood disturbance, and anxiety; E88.09 Other disorders of plasma-protein metabolism, not elsewhere classified; R33.8 Other retention of urine; N18.30 Chronic kidney disease, stage 3 unspecified; R82.71 Bacteriuria; R09.02 Hypoxemia; K86.89 Other specified diseases of pancreas; N32.0 Bladder-neck obstruction; K21.00 Gastro-esophageal reflux disease with esophagitis, without bleeding; M97.01XD Periprosthetic fracture around internal prosthetic right hip joint, subsequent encounter; Z86.711 Personal history of pulmonary embolism; Z95.828 Presence of other vascular implants and grafts; Z79.52 Long term (current) use of systemic steroids
CPT/HCPCS: 88305; 88311; 88312; 36415; 38222; 70551; 71045; 74230; 77012; 80048; 80053; 81003; 81015; 82533; 82607; 82728; 82746; 83540; 83550; 83615; 83735; 83935; 84300; 84443; 84550; 85018; 85025; 85027; 85384; 85610; 85730; 86850; 86900; 86901; 86920; 87040; 87070; 87077; 87086; 87186; 87324; 87449; 88313; 92526; 92610; 92611; 93005; 96365; 96366; 96375; 97163; 97167; 97530; 99285; P9016; P9073